=== PATIENT | male | born 1955 | race Caucasian/White ===

== ENCOUNTER 2024-10-11 14:37 | Outpatient (REF) | payer OTHER, SELFPAY ==
--- OUTSIDE RECORDS SUMMARY | 2024-10-11 16:50 | XMS_ITS | Encounter Summary ---
Author Name [facility] [place] [facility] [place] Address [address] [place] [id number] Care Team Providers Care Car Supplier Name Role Phone SHERLYN BRADLEY Primary Care Provider [facility] Insurance Providers: All historical and current Section Date Range: From patient's date of to the date document was created. This section includes the names of all active insurance providers for the patient. Insurance Provider Type of Coverage Plan Name Start of Policy Coverage End of Policy Coverage Group Number Member ID Insurance Provider's Telephone Number Policy Vasquez's Name Patient's Relationship to Policy Vasquez MEDICARE (WNR) MEDICARE (M) PART B Apr 05, 2020 PART B [id number] [place] PATIENT MEDICARE (WNR) MEDICARE (M) PART A Mar 06, 2019 PART A [id number] [place] PATIENT Selected Encounter This section includes the information on record at [place] for the Encounter. Date/Time Encounter Type Encounter Description Reason Pro vider Source Oct 25, 2023 07:16 AM Outpatient Encounter ENDOCRINOLOGY IHE Encounter Template Text not used by [place] Plan of Treatment: Future Appointments (+ 6 months) and Future Tests (+/- 45 days) The Plan of Treatment section includes future care activities for the patient from all [facility] treatment[facility]. This section includes future appointments and future orders which are active, pending or scheduled. Future Appointments This section includes appointments that were scheduled to occur 6 months from the date of the Encounter, up to a maximum of 20 appointments. The data comes from all [place] treatment facilities. Appointment Date/Time Appointment Type Appointme nt Facility Name Nov 18, 2023 07:00 AM [place] [facility] Dec 30, 2023 03:20 PM [place] [facility] Jan 21, 2024 08:30 AM [place] [facility] Mar 12, 2024 08:30 AM [place] [facility] [facility] Apr 01, 2024 09:00 AM [facility] Lab Results: +/- 30 days of the encounter This section includes the Chemistry and Hematology Lab Results on record with [place] for the patient. Radiology Reports and Pathology Reports are provided separately, in subsequent sections. Lab Results This section contains the Chemistry/Hematology Results that were resulted 30 days before or 30 daysafter the date of the Encounter. Date/Time Source Result Type Result - Unit Interpretation Reference Range Comment Oct 23, 2023 09:48 AM [facility] PROLACTIN Specimen Type: SERUM Comment: PROLACTIN female range:PREMENOPAU LORENZO 3-27, POSTMENOPAUSAL 2-20 Male range changed from 2-14 to 3-20 on 12/28/12. Ordering Provider: SHERLYN BRADLEY Report Released Date/Time: Sep 11, 2023 08:04 AM Reporting Lab: [facility] [address] [facility] [address] Performing Lab: [facility] [address] [facility] [address] PROLACTIN 8.67 ng/mL 3-20 Oct 23, 2023 09:48 AM [facility] ALPHA SUBUNIT (Q) Specimen Type: SERUM Comment: Reference Range for Alpha Subunit: Males: 0.1-0.5 ng/mL Hypothyroidism: 0.2-3.2 ng/mL This test measures the free alpha subunit that is common to LH, FSH, TSH and hCG. These hormones are comprised of identical alpha subunits and unique beta subunits that confer biological specificity. This test was developed and its analytical performance characteristics have been determined by [facility]. It has not been cleared or approved by FDA. This assay has been validated pursuant to the CLIA regulations and is used for clinical purposes. Test performed by [facility] [address] [address] Television Installer: Estela Barlow MD,PHD,PATSY Test Reported by [facility] [employer], [address] [place] [address] Seamus Joseph M.D., Ph.D., Director of Laboratories , CLIA [id number] TEST PERFORMED AT: , Ordering Provider: RUTH RILEY Report Released Date/Time: Oct 23, 2023 09:23 AM Reporting Lab: [facility] [place] [facility] [address] [facility] [address] Performing Lab: [facility] [address] [address] ALPHA SUBUNIT (Q) 0.2 ng/mL Oct 23, 2023 09:48 AM [facility] IGF1 PANEL Specimen Type: SERUM Comment: This test was developed and its analytical performance characteristics have been determined by [facility]. It has not been cleared or approved by FDA. This assay has been validated pursuant to the CLIA regulations and is used for clinical purposes. TEST PERFORMED AT: , Test performed [place] [address] Television Installer: Estela Barlow MD,PHD,PATSY Test Reported by [facility] [employer], [address] [place], [place] Seamus Joseph M.D., Ph.D., Director of Laboratories , CLIA [id number] Ordering Provider: RUTH RILEY Report Released Date/Time: Oct 23, 2023 09:23 AM Reporting Lab: [facility] [address] [facility] [address] Performing Lab: [facility] [address] [address] IGF1 168 ng/mL 34-245 IGF Z SCORE, MALE 0.9 -2.0-+2.0 Oct 23, 2023 09:48 AM [facility] PTH INTACT Specimen Type: SERUM No comment entered. Ordering Provider: RUTH RILEY Report Released Date/Time: Oct 23, 2023 09:28 AM Reporting Lab: [facility] [place] [facility] [address] [facility] [address] Performing Lab: [facility] [place] [facility] [address] [facility] [address] PTH INTACT 48.9 pg/mL 10-65 Oct 23, 2023 09:48 AM [facility] VITAMIN D (25-OH) Specimen Type: SERUM No comment entered. Ordering Provider: RUTH RILEY Report Released Date/Time: Oct 23, 2023 09:28 AM Reporting Lab: [facility] [place] [facility] [address] [facility] [address] Performing Lab: [facility] [address] [address] VITAMIN D (25-OH) 46 ng/mL 20-50 Oct 23, 2023 09:48 AM [facility] CALCIUM Specimen Type: SERUM No comment entered. Ordering Provider: RUTH RILEY Report Released Date/Time: Oct 23, 2023 09:28 AM Reporting Lab: [facility] [place] [address] [address] Performing Lab: [facility] [address] [address] CALCIUM 9.5 mg/dL 8.5-10.2 Oct 23, 2023 09:48 AM [facility] BASIC METABOLIC PANEL (fasting) Specimen Type: SERUM No comment entered. Ordering Provider: RUTH RILEY Report Released Date/Time: Oct 23, 2023 09:28 AM Reporting Lab: [facility] [place] [address] [address] Performing Lab: [facility] [address] [facility] [address] UREA NITROGEN 21 mg/dL 7-25 GLUCOSE 106 mg/dL H 65-100 SODIUM 138 mmol/L 135-145 POTASSIUM 4.8 mmol/L 3.5-5.0 CHLORIDE 100 mmol/L 100-110 CO2 27 meq/L 20-30 CREATININE, Serum 0.87 mg/dL 0.50-1.40 eGFR(CKD-EPI 2020) >90 mL/min >60 Oct 02, 2023 10:32 AM [facility] THYROID T4 FREE(FT4) Specimen Type: SERUM No comment entered. Ordering Provider: SHERLYN BRADLEY Report Released Date/Time: Sep 01, 2023 01:19 PM Reporting Lab: [facility] [address] [facility] [address] Performing Lab: [facility] [address] [facility] [address] THYROID T4 FREE(FT4) 1.22 ng/dL 0.6-1.6 Oct 02, 2023 10:32 AM [facility] TSH Specimen Type: SERUM No comment entered. Ordering Provider: SHERLYN BRADLEY Report Released Date/Time: Sep 01, 2023 01:19 PM Reporting Lab: [facility] [address] [facility] [address] Performing Lab: [address] [address] TSH 0.77 u[IU]/mL 0.35-5.00 Oct 02, 2023 10:32 AM [facility] BASIC METABOLIC PANEL (fasting) Specimen Type: SERUM No comment entered. Ordering Provider: SHERLYN BRADLEY Report Released Date/Time: Sep 01, 2023 01:19 PM Reporting Lab: [facility] [address] [facility] [address] Performing Lab: [address] [address] UREA NITROGEN 13 mg/dL 7-25 GLUCOSE 97 mg/dL 65-100 SODIUM 135 mmol/L 135-145 POTASSIUM 4.4 mmol/L 3.5-5.0 CHLORIDE 99 mmol/L L 100-110 CO2 25 meq/L 20-30 CREATININE, Serum 0.80 mg/dL 0.50-1.40 eGFR(CKD-EPI 2020) >90 mL/min >60 Oct 02, 2023 10:32 AM [facility] CBC Specimen Type: BLOOD No comment entered. Ordering Provider: SHERLYN BRADLEY Report Released Date/Time: Sep 01, 2023 01:19 PM Reporting Lab: [facility] [address] [facility] [address] Performing Lab: [address] [address] WBC 8.05 10*3/uL 4.50-11.00 RBC 4.73 10*6/uL 4.23-5.66 HGB 15.6 g/dL 12.8-17 HCT 45.2 39.2-50.4 MCV 95.6 fL 82-99 MCHC 34.5 g/dL 30.8-35.1 PLT 190 10*3/uL 140-360 RDW-CV 12.3 12.0-16.0 MCH 33.0 pg H 26.2-32.6 Oct 02, 2023 10:32 AM [facility] LIPID PANEL FASTING Specimen Type: SERUM No comment entered. Ordering Provider: SHERLYN BRADLEY Report Released Date/Time: Sep 01, 2023 01:19 PM Reporting Lab: [facility] [address] [facility] [address] Performing Lab: [address] [address] CHOLESTEROL 179 mg/dL TRIGLYCERIDE 69 mg/dL 0-150 LDL calculated 95 mg/dL 0-129 CHOL/HDL 2.6 HDL CHOLESTEROL 70 mg/dL H 40-60 Oct 02, 2023 10:32 AM [facility] HEMOGLOBIN A1C PANEL Specimen Type: BLOOD Comment: Values obtained from A1C measurements can vary. For atypical A1C assays, a reported value of 7.0 could actually be between 6.72 and 7.28 if measured by a reference method. A reported value of 9.0 could actually be between 8.73 and 9.27. Ref: [email or web address] org/CAPdata.asp Ordering Provider: SHERLYN BRADLEY Report Released Date/Time: Sep 01, 2023 01:19 PM Reporting Lab: [facility] [address] [facility] [address] Performing Lab: [address] [address] HEMOGLOBIN A1C 5.1 4.0-5.6 Oct 02, 2023 10:32 AM [facility] LIVER FUNCTION Specimen Type: SERUM No comment entered. Ordering Provider: SHERLYN BRADLEY Report Released Date/Time: Sep 01, 2023 01:19 PM Reporting Lab: [facility] [address] [facility] [address] Performing Lab: [address] [address] PROTEIN,TOTAL 6.7 g/dL 6.0-8.3 ALBUMIN 4.1 g/dL 3.5-5.0 ALKALINE PHOSPHATASE 92 U/L 40-150 AST 36 U/L H 5-34 ALT 35 U/L BILIRUBIN, TOTAL 1.0 mg/dL 0.2-1.2 Oct 02, 2023 10:32 AM [facility] VITAMIN D (25-OH) Specimen Type: SERUM No comment entered. Ordering Provider: SHERLYN BRADLEY Report Released Date/Time: Sep 01, 2023 01:19 PM Reporting Lab: [facility] [address] [facility] [address] Performing Lab: [address] [address] VITAMIN D (25-OH) 41 ng/mL 20-50 Oct 02, 2023 10:31 AM [facility] PROLACTIN Specimen Type: SERUM Comment: PROLACTIN female range:PREMENOPAU LORENZO 3-27, POSTMENOPAUSAL 2-20 Male range changed from 2-14 to 3-20 on 12/28/12. Ordering Provider: RUTH RILEY Report Released Date/Time: Apr 21, 2023 09:25 AM Reporting Lab: [facility] [address] [facility] [address] Performing Lab: [place] [facility] [address] [facility] [address] PROLACTIN 9.11 ng/mL 12-23Oct 02, 2023 10:31 AM [facility] CALCIUM Specimen Type: SERUM No comment entered. Ordering Provider: RUTH RILEY Report Released Date/Time: Apr 21, 2023 09:25 AM Reporting Lab: [facility] [address] [facility] [address] Performing Lab: [facility] [address] [facility] [address] CALCIUM 9.5 mg/dL 8.5-10.2 Social History: Smoking Status (Most current) and Tobacco Use (All prior to encounter date) This section includes the most current, and the historical, smoking and tobacco- related health factors from the [place] facility where the Encounter took place. Current Smoking Status This section includes the most current smoking, or tobacco-related health factor, from the [place] facility where the Encounter took place. Date/Time Current Smoking Status Comment Dinesh ity Sep 04, 2023 01:14 PM [place] USE 30 YEARS OR MORE [facility] Tobacco Use History This section includes a history of the smoking, or tobacco-related health factors, that were collected on or before the date of the Encounter. The data comes from the [place] facility where the Encounter took place. 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 [place] [facility] [facility] Sep 04, 2023 01:14 PM [place]BACCO USE MED NO [place] [facility] Sep 04, 2023 01:14 PM [place]-TOBACCO USE [place] 30 MIN OF WAKEUP [place] [facility] Sep 04, 2023 01:14 PM VA-TOBACCO USER EVERY DAY [place] [facility] [facility] Oct 01, 2022 09:45 AM VA-TOBACCO DOESNT USE WI 30 MIN WAKEUP [place] [facility] [place] [facility] Oct 01, 2022 09:45 AM VA-TOBACCO USE 30 YEARS OR MORE [place] [facility] [place] [facility] Oct 01, 2022 09:45 AM VA-TOBACCO USE ADVICE [place] [facility] [place] [facility] Oct 01, 2022 09:45 AM 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 [place] [facility] [facility] Oct 01, 2022 09:45 AM VA-TOBACCO USE MED NO [place] [facility] [place] [facility] Oct 01, 2022 09:45 AM VA-TOBACCO USER EVERY DAY [place] [facility] [place] [facility] Sep 07, 2021 10:30 AM VA-TOBACCO USE 30 YEARS OR MORE [place] [facility] [place] [facility] Sep 07, 2021 10:30 AM VA-TOBACCO USE ADVICE [place] [facility] [place] [facility] Sep 07, 2021 10:30 AM 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 [place] [facility] [facility] Sep 07, 2021 10:30 AM VA-TOBACCO USE MED NO [place] [facility] [place] [facility] Sep 07, 2021 10:30 AM [place]-TOBACCO USE [place] 30 MIN OF WAKEUP [place] [facility] Sep 07, 2021 10:30 AM VA-TOBACCO USER EVERY DAY [place] [facility] [place] [facility] Jun 08, 2020 09:00 AM VA-TOBACCO USE 30 YEARS OR MORE [place] [facility] [place] [facility] Jun 08, 2020 09:00 AM VA-TOBACCO USE ADVICE [place] [facility] [place] [facility] Jun 08, 2020 09:00 AM 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 [place] [facility] [place] [facility] Jun 08, 2020 09:00 AM VA-TOBACCO USE MED NO [place] [facility] [facility] Jun 08, 2020 09:00 AM VA-TOBACCO USE [place] 30 MIN OF WAKEUP [place] [facility] [facility] Jun 08, 2020 09:00 AM VA-TOBACCO USER EVERY DAY [place] [facility] Feb 01, 2019 02:27 PM VA-TOBACCO USE 30 YEARS OR MORE [place] [facility] Feb 01, 2019 02:27 PM VA-TOBACCO USE ADVICE [place] [facility] [facility] Feb 01, 2019 02:27 PM 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 [place] [facility] [facility] Feb 01, 2019 02:27 PM VA-TOBACCO USE MED NO [place] [facility] Feb 01, 2019 02:27 PM [place]-TOBACCO USE [place] 30 MIN [place]KEUP [place] [facility] [facility] [facility] Feb 01, 2019 02:27 PM VA-TOBACCO USER EVERY DAY [place] [facility] [facility] [facility] Apr 02, 2018 02:47 PM CURRENT SMOKER [place] [facility] [facility] Apr 02, 2018 02:47 PM V1-PT DECLINES REF TO TOBACCO CESS PRGM [place] [facility] [facility] Apr 02, 2018 02:47 PM V1-PT DECLINES TOB ACCO CESSATION MEDS [place] [facility] [facility] [facility] Apr 02, 2018 02:47 PM V1-PT THINKING ABO UT QUIT TOBACCO USE [facility] Radiology Reports: +/- 30 days of the encounter Radiology Reports For cases when an order for radiology services may have been completed prior to the date of the Encounter, the report list includes the Radiology Reports that were completed up to 30 days before dateof the Encounter. For cases when an order for radiology services may have been completed after the date of the Encounter, the report list also includes the Radiology Reports that were completed up to30 days after date of the Encounter. The data comes from all [place] treatment facilities. Date/Time Radiology Report Provider Source Nov 18, 2023 02:00 PM OUTSIDE MRI BRAIN W/WO CONTRAST: KINGSTON RENDON [id number] -[id number] M Exm Date: NOV 18, 2023@14:00 Req Phys: RUTH RILEY Loc: NHM/ENDOCRINE (Req'g Loc) Img Loc: OUTSIDE GENERAL RADIOLOGY Service: Unknown (Case [id number] COMPLETE) OUTSIDE MRI BRAIN W/WO CONTRAST (RAD Detailed) CPT:76874 Reason for Study: benign pituitary neoplasm Clinical History: Report Status: Electronically Filed Date Reported: DEC 01, 2023 Report: Please see report in [facility]. Impression: Please see report in [facility]. Primary Diagnostic Code: VERIFIED BY: / *ELECTRONICALLY FILED* [place] [facility] [facility] Encounter Notes: All associated encounter notes This section contains the clinical notes associated to the Encounter. Date/Time Encounter Note(s) Provider Source Oct 25, 2023 07:16 AM LETTERS: LOCAL TITLE: PATIENT LETTER (B) STANDARD TITLE: LETTERS DATE OF NOTE: OCT 25, 2023@07:16 ENTRY DATE: OCT 25, 2023@07:16:27 AUTHOR: RUTH RILEY COSIGNER: URGENCY: STATUS: COMPLETED PATIENT LETTER (B) Has ADDENDA Oct KINGSTON RENDON [address] [place] [address] Dear [place], Your recent test results are as follows: 10/23/2023 09:48 SERUM !! PROLACTIN 8.67 ng/mL 3 - 20 10/23/2023 09:48 SERUM CALCIUM 9.5 mg/dL 8.5 - 10.2 CREATININE, Serum 0.87 mg/dL 0.50 - 1.40 VITAMIN D (25-OH) 46 ng/mL 20 - 50 eGFR(CKD-EPI 2020 >90 mL/min Ref: >=60 SODIUM 138 mmol/L 135 - 145 POTASSIUM 4.8 mmol/L 3.5 - 5.0 CHLORIDE 100 mmol/L 100 - 110 CO2 27 mEq/L 20 - 30 UREA NITROGEN 21 mg/dL 7 - 25 GLUCOSE 106 H mg/dL 65 - 100 10/23/2023 09:48 SERUM PTH INTACT 48.9 pg/mL 10 - 65 Your prolactin may go up with growth of your pituitary nodule. Your result is normal. Your calcium and vitamin D look good on your current doses. Please continue these. Your kidney function blood tests and chemistries are normal. Please continue your calcium and vitamin D. Your parathyroid hormone (which regulates calcium) is normal. Please call if you have any questions or concerns at [phone] option 2 option 4. Sincerely, Ruth Riley MD 11/04/2023 ADDENDUM STATUS: COMPLETED Oct KINGSTON RENDON Jarrod [address] [place] [address] Dear [place], Your recent test results are as follows: 10/23/2023 09:48 IGF1 168 ng/mL 34 - 245 IGF Z SCORE, MALE 0.9 SD -2.0 - +2.0 This test to look for excess growth hormone is normal. Please call if you have any questions or concerns at [phone] option 2 option 4. Sincerely, Ruth Riley MD /lolly/ RUTH RILEY MD STAFF PHYSICIAN Signed: 11/04/2023 05:59 RUTH RILEY [facility]
--- OUTSIDE RECORDS SUMMARY | 2024-10-11 16:50 | XMS_ITS ---
Author Name [facility] [place] Organization [facility] [place] Address [address] [place] [id number] Care Team Providers Care Dry Heat Room Attendant Name Role Phone SHERLYN BRADLEY Primary Care Provider [facility] Insurance Providers: All historical and current [...] PART B Apr 05, 2020 PART B [id number] [facility] [place] PATIENT MEDICARE (WNR) MEDICARE (M) PART A Mar 06, 2019 PART A [id number] COC[facility] FARLEY PATIENT Selected Encounter This section includes the information on record at CT for the Encounter. Date/Time Encounter Type Encounter Description Reason Pro vider Source Nov 04, 2023 12:57 PM Outpatient Encounter ENDOCRINOLOGY IHE Encounter Template Text not used by CT Plan of Treatment: Future Appointments (+ 6 [...] 20 appointments. The data comes from all CT treatment facilities. Appointment Date/Time Appointment Type Appointme nt Facility Name Nov 18, 2023 07:00 AM AMBULATORY - MEDICINE [facility] Dec 30, 2023 03:20 PM AMBULATORY [facility] Jan 21, 2024 08:30 AM AMBULATORY - MEDIC[place] [facility] [place] [facility] Mar 12, 2024 08:30 AM AMBULATORY - MEDICINE [facility] C [facility] Apr 01, 2024 09:00 AM [facility] Lab Results: +/- 30 days of the encounter This section includes the Chemistry and Hematology Lab Results on record with CT for the patient. Radiology Reports and Pathology Reports are provided separately, in subsequent sections. Lab Results This section contains the Chemistry/Hematology Results that were resulted 30 days before or 30 daysafter the date of the Encounter. Date/Time Source Result Type Result - Unit Interpretation Reference Range Comment Oct 23, 2023 09:48 AM [facility] PROLACTIN Specimen Type: SERUM Comment: PROLACTIN female range:PREMENOPAUS AL 3-27, POSTMENOPAUSAL 2-20 Male range changed from 2-14 to 3-20 on 12/28/12. Ordering Provider: SHERLYN BRADLEY Report Released Date/Time: Sep 11, 2023 08:04 AM Reporting Lab: [facility] [address] [facility] [address] Performing Lab: [facility] [address] [facility] [address] PROLACTIN 8.67 ng/mL 3-20 Oct 23, 2023 09:48 AM [facility] ALPHA SUBUNIT (Q) Specimen Type: SERUM [...] analytical performance characteristics have been determined by [facility]. It has not been cleared or approved by FDA. This assay has been validated pursuant to the CLIA regulations and is used for clinical purposes. Test performed by [facility] [address] [address] Mosaic Technician: Estela Barlow MD,PHD,PATSY Test Reported by [employer] [facility] [place], [address] [place] [address] Seamus Joseph M.D., Ph.D., Director of Laboratories , CLIA [id number] TEST PERFORMED AT: , Ordering Provider: JEEVAN RILEY Report Released Date/Time: Oct 23, 2023 09:23 AM Reporting Lab: [facility] [address] [facility] [address] Performing Lab: [facility] [address] [address] ALPHA SUBUNIT (Q) 0.2 ng/mL Oct 23, 2023 09:48 AM [facility] IGF1 PANEL Specimen Type: SERUM Comment: This test was developed and its analytical performance characteristics have been determined by [facility]. It has not been cleared or approved by FDA. This assay has been validated pursuant to the CLIA regulations and is used for clinical purposes. TEST PERFORMED AT: , Test performed [place] [address] Mosaic Technician: Estela Barlow MD,PHD,PATSY Test Reported by [employer] [facility] [place], [address] [place], [place] Seamus Joseph M.D., Ph.D., Director of Laboratories , CLIA [id number] Ordering Provider: JEEVAN RILEY Report Released Date/Time: Oct 23, 2023 09:23 AM Reporting Lab: [facility] [address] [facility] [address] Performing Lab: [facility] [address] [address] IGF1 168 ng/mL 34-245 IGF Z SCORE, MALE 0.9 -2.0-+2.0 Oct 23, 2023 09:48 AM [facility] CALCIUM Specimen Type: SERUM No comment entered. Ordering Provider: JEEVAN RILEY Report Released Date/Time: Oct 23, 2023 09:28 AM Reporting Lab: [facility] [place] [facility] [address] [facility] [address] Performing Lab: [facility] [address] [address] CALCIUM 9.5 mg/dL 8.5-10.2 Oct 23, 2023 09:48 AM [facility] PTH INTACT Specimen Type: SERUM No comment entered. Ordering Provider: JEEVAN RILEY Report Released Date/Time: Oct 23, 2023 09:28 AM Reporting Lab: [facility] [place] [facility] [address] [facility] [address] Performing Lab: [facility] [address] [facility] [address] PTH INTACT 48.9 pg/mL 10-65 Oct 23, 2023 09:48 AM [facility] VITAMIN D (25-OH) Specimen Type: SERUM No comment entered. Ordering Provider: JEEVAN RILEY Report Released Date/Time: Oct 23, 2023 09:28 AM Reporting Lab: [facility] [place] [facility] [address] [facility] [address] Performing Lab: [facility] [address] [address] VITAMIN D (25-OH) 46 ng/mL 20-50 Oct 23, 2023 09:48 AM [facility] BASIC METABOLIC PANEL (fasting) Specimen Type: SERUM No comment entered. Ordering Provider: JEEVAN RILEY Report Released Date/Time: Oct 23, 2023 09:28 AM Reporting Lab: [facility] [place] [address] [address] Performing Lab: [place] [facility] [place] [facility] [address] [facility] [address] UREA NITROGEN 21 mg/dL 7-25 GLUCOSE 106 mg/dL H 65-100 SODIUM 138 mmol/L 135-145 POTASSIUM 4.8 mmol/L 3.5-5.0 CHLORIDE 100 mmol/L 100-110 CO2 27 meq/L 20-30 CREATININE, Serum 0.87 mg/dL 0.50-1.40 eGFR(CKD-EP I 2020) >90 mL/min >60 Social History: Smoking Status (Most current) and Tobacco Use (All prior to encounter date) This section includes the most current, and the historical, smoking and tobacco- related health factors from the CT facility where the Encounter took place. Current Smoking Status This section includes the most current smoking, or tobacco-related health factor, from the CT facility where the Encounter took place. Date/Time Current Smoking Status Comment Facil ity Sep 04, 2023 01:14 PM VA-TOBACCO USER EVERY DAY [facility] Tobacco Use History This section includes a history of the smoking, or tobacco-related health factors, that were collected on or before the date of the Encounter. The data comes from the CT facility where the Encounter took place. Date/Time Smoking Status/Tobacco Use Comment F acility Sep 04, 2023 01:14 PM VA-TOBACCO USE ADVICE CT [facility] [place] [facility] Sep 04, 2023 01:14 PM VA-TOBACCO USE MINE DEVELOPMENT ENGINEER NO CT [facility] [place] [facility] Sep 04, 2023 01:14 PM VA-TOBACCO USE MED NO [facility] [place] [facility] Sep 04, 2023 01:14 PM VA-TOBACCO USE [place] [address] [facility] [place] [facility] Sep 04, 2023 01:14 PM VA-TOBACCO USER EVERY DAY CT [facility] [place] [facility] Oct 01, 2022 09:45 AM VA-TOBACCO DOESNT USE [place] [address] [facility] [place] [facility] Oct 01, 2022 09:45 AM VA-TOBACCO USE [address] [facility] [place] [facility] Oct 01, 2022 09:45 AM VA-TOBACCO USE ADVICE CT [facility] [place] [facility] Oct 01, 2022 09:45 AM VA-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 USE MINE DEVELOPMENT 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 NO [facility] [place] [facility] Oct 01, 2022 09:45 AM VA-TOBACCO USE MED NO [facility] [place] [facility] Oct 01, 2022 09:45 AM VA-TOBACCO USER EVERY DAY [facility] [place] [facility] Sep 07, 2021 10:30 AM VA-TOBACCO USE 30 YEARS OR MORE [facility] [place] [facility] Sep 07, 2021 10:30 AM VA-TOBACCO USE ADVICE [facility] [place] [facility] Sep 07, 2021 10:30 AM VA-TOBACCO USE MINE DEVELOPMENT ENGINEER NO [facility] [place] [facility] Sep 07, 2021 10:30 AM VA-TOBACCO USE MED NO [facility] [place] [facility] Sep 07, 2021 10:30 AM VA-TOBACCO USE [place] 30 MIN OF WAKEUP [facility] [place] [facility] Sep 07, 2021 10:30 AM VA-TOBACCO USER EVERY DAY [facility] [place] [facility] Jun 08, 2020 09:00 AM VA-TOBACCO USE 30 YEARS OR MORE [facility] [place] [facility] Jun 08, 2020 09:00 AM VA-TOBACCO USE ADVICE [facility] [place] [facility] Jun 08, 2020 09:00 AM VA-TOBACCO USE MINE DEVELOPMENT ENGINEER NO [facility] [place] [facility] Jun 08, 2020 09:00 AM VA-TOBACCO USE MED NO [facility] [place] [facility] Jun 08, 2020 09:00 AM VA-TOBACCO USE [place] 30 MIN OF WAKEUP [facility] [place] [facility] Jun 08, 2020 09:00 AM VA-TOBACCO USER EVERY DAY [facility] [place] [facility] Feb 01, 2019 02:27 PM VA-TOBACCO USE 30 YEARS OR MORE [facility] [place] [facility] Feb 01, 2019 02:27 PM VA-TOBACCO USE ADVICE [facility] [place] [facility] Feb 01, 2019 02:27 PM VA-TOBACCO USE MINE DEVELOPMENT ENGINEER NO [facility] [place] [facility] Feb 01, 2019 02:27 PM VA-TOBACCO USE MED NO [facility] Feb 01, 2019 02:27 PM VA-TOBACCO [place] [address] [facility] Feb 01, 2019 02:27 PM VA-TOBACCO USER EVERY DAY CT [facility] [place] [facility] Apr 02, 2018 02:47 PM CURRENT SMOKER [facility] Apr 02, 2018 02:47 PM V1-PT DECLINES REF TO TOBACCO CESS PRGM CT [facility] Apr 02, 2018 02:47 PM V1-PT DECLINES TOB ACCO CESSATION MEDS CT [facility] [place] [facility] Apr 02, 2018 02:47 PM V1-PT THINKING ABO UT QUIT TOBACCO USE [facility] Radiology Reports: +/- 30 days of the [...] the Encounter. The data comes from all CT treatment facilities. Date/Time Radiology Report Provider Source Nov 18, 2023 02:00 PM OUTSIDE MRI BRAIN W/WO CONTRAST: KINGSTON RENDON [id number] -[id number] Exm Date: NOV 18, 2023@14:00 Req Phys: JEEVAN RILEY Loc: NH[facility]/ENDOCRINE (Req'g Loc) Img Loc: OUTSIDE GENERAL RADIOLOGY Service: Unknown (Case [id number] COMPLETE) OUTSIDE MRI BRAIN W/WO CONTRAST (RAD Detailed) CPT:32490 Reason for Study: benign pituitary neoplasm Clinical History: Report Status: Electronically Filed Date Reported: DEC 01, 2023 Report: Please see report in [facility]. Impression: Please see report in [facility]. Primary Diagnostic Code: VERIFIED BY: / *ELECTRONICALLY FILED* [facility] Encounter Notes: All associated encounter notes This section contains the clinical notes associated to the Encounter. Date/Time Encounter Note(s) Provider Source Nov 07, 2023 12:57 PM ADDENDUM: LOCAL TITLE: Addendum STANDARD TITLE: ADDENDUM DATE OF NOTE: NOV 07, 2023@12:57:17 ENTRY DATE: NOV 07, 2023@12:57:18 AUTHOR: JEEVAN RILEY EXP COSIGNER: URGENCY: STATUS: COMPLETED Advised of normal alpha subunit. Dr. Aly, Pt is now seeking oral surgery consult. This was placed 05/2023. Pt did not make appt at that time. Now requesting new referral for this care. Thank you. /galina RILEY MD STAFF PHYSICIAN Signed: 11/07/2023 13:01 Receipt Acknowledged By: 11/13/2023 12:12 /lolly/ JANEL ALY DMD Staff Dentist ====== --- Original Document --- 11/04/23 TELEPHONE NOTE/SPECIALTY CLINIC: called asking to speak with Dr. Riley regarding his dental community care consult order, which was discontinued. He is unable to schedule an appointment until a new order has been entered. Please contact [facility] to discuss. /lolly/ ROZ PHILIPPE LEAD DIE DESIGNER Signed: 11/04/2023 12:59 Receipt Acknowledged By: 11/07/2023 13:01 /galina RILEY MD STAFF PHYSICIAN JEEVAN RILEY [facility] Nov 04, 2023 12:57 PM TELEPHONE ENCOUNTE R NOTE: LOCAL TITLE: TELEPHONE NOTE/SPECIALTY CLINIC STANDARD TITLE: TELEPHONE ENCOUNTER NOTE DATE OF NOTE: NOV 04, 2023@12:57 ENTRY DATE: NOV 04, 2023@12:57:24 AUTHOR: ROZ PHILIPPE EXP COSIGNER: URGENCY: STATUS: COMPLETED TELEPHONE NOTE/SPECIALTY CLINIC Has ADDENDA [facility] called asking to speak with Dr. Riley regarding his dental community care consult order, which was discontinued. He is unable to schedule an appointment until a new order has been entered. Please contact to discuss. /galina PHILIPPE LEAD DIE DESIGNER Signed: 11/04/2023 12:59 Receipt Acknowledged By: 11/07/2023 13:01 /galina RILEY MD STAFF PHYSICIAN 11/07/2023 ADDENDUM STATUS: COMPLETED Advised of normal alpha subunit. Dr. Aly, Pt is now seeking oral surgery consult. This was placed 05/2023. Pt did not make appt at that time. Now requesting new referral for this care. Thank you. /galina RILEY MD STAFF PHYSICIAN Signed: 11/07/2023 13:01 Receipt Acknowledged By: * AWAITING SIGNATURE * JANEL ALY BRENDA J [facility]
--- OUTSIDE RECORDS SUMMARY | 2024-10-11 16:50 | XMS_ITS | Encounter Summary ---
Author Name [facility] [place] [facility] [place] Organization [facility] [place] [facility] [place] Address [address] [place] [id number] Care Team Providers Care Html Developer Name Role Phone SHERLYN BRADLEY Primary Care Provider [facility] Insurance Providers: All historical and current Section [...] PART B Apr 05, 2020 PART B [id number] MIGUELITOCOCO FRANKLINNDER PATIENT MEDICARE (WNR) MEDICARE (M) PART A Mar 06, 2019 PART A [id number] COCO FARLEY PATIENT Selected Encounter This section includes the information on record at [place] for the Encounter. Date/Time Encounter Type Encounter Description Reason Provider Source Nov 19, 2023 12:31 PM Outpatient Encounter TELEPHONE/MEDICIN E ICD-10-CM D35.2 Benign neoplasm of pituitary gland JEEVAN RILEY Nathaniel Encounter Template Text not used by [place] Assessments - Encounter Diagnoses This section includes the primary and secondary diagnoses documented for the Encounter. Date/Time Primary/Secondary Diagnosis Diagnosis Name Provider Source Nov 19, 2023 12:31 PM PRIMARY Benign neoplasm of pituitary gland JEEVAN RILEY [facility] Plan of Treatment: Future Appointments (+ 6 months) and Future Tests (+/- 45 days) The Plan of Treatment section includes future care activities for the [facility] This section includes future appointments and future orders which are active, pending or scheduled. Future Appointments This section includes appointments that were scheduled to occur 6 months from the date of the Encounter, up to a maximum of 20 appointments. The data comes from all [place] treatment facilities. Appointment Date/Time Appointment Type Appointme nt Facility Name Dec 30, 2023 03:20 PM AMBULATORY [facility]INE [facility] Jan 21, 2024 08:30 AM AMBULAT[facility] Mar 12, 2024 08:30 AM AMBULATORY - MEDICINE [facility] Apr 01, 2024 09:00 AM AMBULATORY - NONE [facility] Lab Results: +/- 30 days of the encounter This section includes the Chemistry and Hematology Lab Results on record with [place] for the patient. Radiology Reports and Pathology Reports are provided separately, in subsequent sections. Lab Results This section contains the Chemistry/Hematology Results that were resulted 30 days before or 30 daysafter the date of the Encounter. Date/Time Source Result Type Result - Unit Interpretation Reference Range Comment Oct 23, 2023 09:48 AM [facility] PROLACTIN Specimen Type: SERUM Comment: PROLACTIN female range:PREMENOPAUS AL 3-27, POSTMENOPAUSAL 2-20 Male range changed from 2-14 to 3-20 on 12/28/12. Ordering Provider: SHERLYN BRADLEY Report Released Date/Time: Sep 11, 2023 08:04 AM Reporting Lab: [facility] [address] [address] Performing Lab: [facility] [address] [facility] [address] PROLACTIN 8.67 ng/mL 3-20 Oct 23, 2023 09:48 AM [facility] ALPHA SUBUNIT (Q) Specimen Type: SERUM Comment: Reference Range for Alpha Subunit: Males: 0.1-0.5 ng/mL Hypothyroidism: 0.2-3.2 ng/mL This test measures the free alpha subunit that is common to LH, FSH, TSH and hCG. These hormones are comprised of identical alpha subunits and unique beta subunits that confer biological specificity. This test was developed and its analytical performance characteristics have been determined by [employer]. It has not been cleared or approved by FDA. This assay has been validated pursuant to the CLIA regulations and is used for clinical purposes. Test performed by [employer] [place] [id number] Lapidarist: Estela Barlow MD,PHD,PATSY Test Reported by [facility], [address] [place], [place] Seamus Joseph M.D., Ph.D., Director of Laboratories , CLIA [id number] TEST PERFORMED AT: , Ordering Provider: JEEVAN RILEY Report Released Date/Time: Oct 23, 2023 09:23 AM Reporting Lab: [facility] [address] [facility] [address] Performing Lab: [facility] [address] [address] ALPHA SUBUNIT (Q) 0.2 ng/mL Oct 23, 2023 09:48 AM [facility] IGF1 PANEL Specimen Type: SERUM Comment: This test was developed and its analytical performance characteristics have been determined by [employer]. It has not been cleared or approved by FDA. This assay has been validated pursuant to the CLIA regulations and is used for clinical purposes. TEST PERFORMED AT: , Test performed by [employer] [address] [address] Lapidarist: Estela Barlow MD,PHD,PATSY Test Reported by [facility] [employer] [place], [address] [place], [place] Seamus Joseph M.D., Ph.D., Director of Laboratories , CLIA [id number] Ordering Provider: JEEVAN RILEY Report Released Date/Time: Oct 23, 2023 09:23 AM Reporting Lab: [facility] [place] [facility] [address] [facility] [address] Performing Lab: [facility] [place] [facility] [address] [address] IGF1 168 ng/mL 34-245 IGF Z SCORE, MALE 0.9 -2.0-+2.0 Oct 23, 2023 09:48 AM [facility] CALCIUM Specimen Type: SERUM No comment entered. Ordering Provider: JEEVAN RILEY Report Released Date/Time: Oct 23, 2023 09:28 AM Reporting Lab: [facility] [place] [facility] [address] [facility] [address] Performing [facility]: [facility] [address] [facility] [address] CALCIUM 9.5 mg/dL 8.5-10.2 Oct 23, 2023 09:48 AM [facility] PTH INTACT Specimen Type: SERUM No comment entered. Ordering Provider: JEEVAN RILEY Report Released Date/Time: Oct 23, 2023 09:28 AM Reporting Lab: [facility] [place] [facility] [address] [facility] [address] Performing Lab: [facility] [address] [facility] [address] PTH INTACT 48.9 pg/mL 10-65 Oct 23, 2023 09:48 AM [facility] VITAMIN D (25-OH) Specimen Type: SERUM No comment entered. Ordering Provider: JEEVAN RILEY Report Released Date/Time: Oct 23, 2023 09:28 AM Reporting Lab: [facility] [place] [facility] [address] [facility] [address] Performing Lab: [facility] [address] [facility] [address] VITAMIN D (25-OH) 46 ng/mL 20-50 Oct 23, 2023 09:48 AM [facility] BASIC METABOLIC PANEL (fasting) Specimen Type: SERUM No comment entered. Ordering Provider: JEEVAN RILEY Report Released Date/Time: Oct 23, 2023 09:28 AM Reporting Lab: [facility] [address] [facility] [address] Performing Lab: [place] CN[facility]L [facility] [address] [facility] [address] UREA NITROGEN 21 mg/dL 7-25 GLUCOSE 106 [...] and tobacco- related health factors from the [place] facility where the Encounter took place. Current Smoking Status This section includes the most current smoking, or tobacco-related health factor, from the [place] facility where the Encounter took place. Date/Time Current Smoking Status Comment Dinesh ity Sep 04, 2023 01:14 PM [place]-TOBACCO USER EVERY DAY [facility] Tobacco Use History This section includes a history of the smoking, or tobacco-related health factors, that were collected on or before the date of the Encounter. The data comes from the [place] facility where the Encounter took place. Date/Time Smoking Status/Tobacco Use Comment F acility Sep 04, 2023 01:14 PM VA-TOBACCO USE ADVICE [facility] Sep 04, 2023 01:14 PM VA-TOBACCO USE [facility]ER NO PA [facility] [facility] Sep 04, 2023 01:14 PM VA-TOBACCO USE MED NO PA [facility] Sep 04, 2023 01:14 PM VA-TOBACCO USE WI 30 MIN OF WAKEUP [facility] [facility] Sep 04, 2023 01:14 PM VA-TOBACCO USER EVERY DAY [facility] [place] [facility] Oct 01, 2022 09:45 AM VA-TOBACCO DOESNT USE WI 30 MIN WAKEUP [facility] [place] [facility] Oct 01, 2022 09:45 AM VA-TOBACCO USE 30 YEARS OR MORE [facility] [place] [facility] Oct 01, 2022 09:45 AM VA-TOBACCO USE ADVICE [facility] [place] [facility] Oct 01, 2022 09:45 AM VA-TOBACCO USE [facility] NO [facility] [place] [facility] Oct 01, 2022 09:45 AM VA-TOBACCO USE MED NO [facility] [facility] Oct 01, 2022 09:45 AM VA-TOBACCO USER EVERY DAY [facility] [place] [facility] Sep 07, 2021 10:30 AM VA-TOBACCO USE 30 YEARS OR MORE [facility] [place] [facility] Sep 07, 2021 10:30 AM VA-TOBACCO USE ADVICE [facility] [facility] Sep 07, 2021 10:30 AM VA-TOBACCO USE [facility] NO [facility] [place] [facility] Sep 07, 2021 10:30 AM VA-TOBACCO USE MED NO [facility] [facility] Sep 07, 2021 10:30 AM VA-TOBACCO USE [place] 30 MIN OF WAKEUP [facility] [place] [facility] Sep 07, 2021 10:30 AM VA-TOBACCO USER EVERY DAY [facility] [place] [facility] Jun 08, 2020 09:00 AM VA-TOBACCO USE 30 YEARS OR MORE [facility] [place] [facility] Jun 08, 2020 09:00 AM VA-TOBACCO USE ADVICE [facility] [facility] Jun 08, 2020 09:00 AM VA-TOBACCO USE [facility] NO [facility] [place] [facility] Jun 08, 2020 09:00 AM VA-TOBACCO USE MED NO [facility] [facility] Jun 08, 2020 09:00 AM VA-TOBACCO USE [place] 30 MIN OF WAKEUP [facility] [facility] Jun 08, 2020 09:00 AM VA-TOBACCO USER EVERY DAY [facility] [facility] Feb 01, 2019 02:27 PM VA-TOBACCO USE 30 YEARS OR MORE [facility] [facility] Feb 01, 2019 02:27 PM VA-TOBACCO USE ADVICE [facility] Feb 01, 2019 02:27 PM VA-TOBACCO USE [facility] NO PA CNTRL [facility] Feb 01, 2019 02:27 PM VA-TOBACCO USE MED NO PA CNTRL [facility] Feb 01, 2019 02:27 PM VA-TOBACCO USE [place] 30 MIN OF WAKEUP PA CNTRL [facility] Feb 01, 2019 02:27 PM VA-TOBACCO USER EVERY DAY PA CNTRL [facility] Apr 02, 2018 02:47 PM CURRENT SMOKER [facility] Apr 02, 2018 02:47 PM V1-PT DECLINES REF TO TOBACCO CESS PRGM PA CNTR WSTRN [facility] Apr 02, 2018 02:47 PM V1-PT DECLINES TOB ACCO CESSATION MEDS [facility] Apr 02, 2018 02:47 PM V1-PT THINKING ABO UT QUIT TOBACCO USE [facility] Radiology Reports: +/- 30 days of [...] the Encounter. The data comes from all [place] treatment facilities. Date/Time Radiology Report Provider Source Nov 18, 2023 02:00 PM OUTSIDE MRI BRAIN W/WO CONTRAST: KINGSTON RENDON [id number] M Exm Date: NOV 18, 2023@14:00 Req Phys: JEEVAN RILEY Loc: NHM/ENDOCRINE (Req'g Loc) Img Loc: OUTSIDE GENERAL RADIOLOGY Service: Unknown (Case [id number] COMPLETE) OUTSIDE MRI BRAIN W/WO CONTRAST (RAD Detailed) CPT:33488 Reason for Study: benign pituitary neoplasm Clinical History: Report Status: Electronically Filed Date Reported: DEC 01, 2023 Report: Please see report in [facility]. Impression: Please see report in [facility]. Primary Diagnostic Code: VERIFIED BY: / *ELECTRONICALLY FILED* [facility] Encounter Notes: All associated encounter notes This section contains the clinical notes associated to the Encounter. Date/Time Encounter Note(s) Provider Source Nov 19, 2023 12:31 PM PHYSICIAN NOTE: LOCAL TITLE: MD NOTE STANDARD TITLE: PHYSICIAN NOTE DATE OF NOTE: NOV 19, 2023@12:31 ENTRY DATE: NOV 19, 2023@12:31:10 AUTHOR: JEEVAN RILEY COSIGNER: URGENCY: STATUS: COMPLETED Pituitary benign neoplasm Advised of improved MRI pituitary, with shrinkage of the previously seen cystic pituitary lesion. We may want to repeat MRI in the future. 5 min telephone encounter. /lolly/ JEEVAN RILEY MD STAFF PHYSICIAN Signed: 11/19/2023 12:33 JEEVAN RILEY [facility]
--- OUTSIDE RECORDS SUMMARY | 2024-10-11 16:50 | XMS_ITS | Continuity of Care Document ---
Author Name [facility] Organization [facility] Care Team Providers Care Web Retailer Name Role Phone [facility] Unavailable Unavailable Problems Combined list of problems from Department of Defense and Veterans Affairs facilities. It does not include entries that were removed or entered in error. 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 cutting down from 5 cigars to 5 cigarettes [facility] Elevated blood-pressure reading without diagnosis of hypertension Active Condition [facility] HTN - Hypertension (SCT [id number]) Active Condition [facility] Hyperlipidemia (SCT [id number]) Active Condition Nov 06, 2018 Entered By: GIN BRADLEY Comment: address next visitDec 07, 2020 Entered By: GIN BRADLEY Comment: start atorvastatin 20mg qhs [facility] Hyponatremia Active Condition [facility] Hypothyroid Active Condition [facility] Multiple nodules of lung [facility] Osteoporosis Active Condition [facility] [place] Polyp Colon (SCT [id number]) Active Condition Jun 04, 2019 Entered By: GIN BRADLEY Comment: c-scope 06/02/19 normal exam, repeat May [address] [facility] Tobacco user Active [facility] Diagnosis: ICD-10-CM J44.9 Chronic obstructive pulmonary disease, unspecified [facility] Diagnosis: ICD-10-CM E03.9 Hypothyroidism, unspecified Active [facility] Diagnosis: ICD-10-CM E87.1 Hypo-osmolality and hyponatremia [facility] [place] Diagnosis: ICD-10-CM R91.1 Solitary pulmonary nodule Active Diagnosis [facility] [place] Diagnosis: ICD-10-CM M81.0 Age-related osteoporosis w/o current pathological fracture [facility] [place] Diagnosis: ICD-10-CM D35.2 Benign neoplasm of pituitary gland [facility] Diagnosis: ICD-10-CM K05.323 Chronic periodontitis, generalized, severe Active Diagnosis [facility] Medications Combined list of outpatient medications from Department of Defense and Veterans Affairs facilities.Medications provided include 1) outpatient medications from the last 15 months, and 2) patient-reported medications. Medication Details Route Status Patient Instructions Prescription Expires Prescription Number Last Dispense Date Ordering Provider Order Date Order Qty Source ALBUTEROL 90MCG/ACTUA T (CFC-F) INHL,ORAL,8 .5GM DOSE COUNTER INHALE 2 PUFFS BY MOUTH EVERY 4 HOURS NEEDED FOR BREATHIN G RESPIR ATORY (INHAL ATION) ACTIVE 09/15/2025 [id number] 5 SHERLYN BRADLEY 2024 3 [facility] ALBUTEROL 90MCG/ACTUA T (CFC-F) INHL,ORAL,8 .5GM DOSE COUNTER INHALE 2 PUFFS BY MOUTH EVERY 4 HOURS NEEDED FOR BREATHIN G RESPIR ATORY (INHAL ATION) DISCONT INUED 01/21/2025 [id number] 4 BERNARDINO NIELSEN 2023 3 [facility] ALBUTEROL 90MCG/ACTUA T (CFC-F) INHL,ORAL,8 .5GM DOSE COUNTER INHALE 2 PUFFS BY MOUTH EVERY 4 HOURS NEEDED RESPIR ATORY (INHAL ATION) DISCONT INUED 01/10/2024 [id number] 4 SHERLYN BRADLEY 2022 1 [facility] ALBUTEROL SO4 0.083% INHL,3ML INHALE 1 AMPULE IN NEBULIZE R EVERY 6 HOURS NEEDED FOR BREATHIN G RESPIR ATORY (INHAL ATION) ACTIVE 09/15/2025 [id number] 4 SHERLYN BRADLEY 2023 120 [facility] ATORVASTATI N CA 40MG TAB TAKE ONE-HALF TABLET BY MOUTH ONCE DAILY FOR CHOLESTE ROL ORAL ACTIVE 09/15/2025 [id number] 4 SHERLYN BRADLEY 2023 45 [facility] ATORVASTATI N CA 40MG TAB TAKE ONE-HALF TABLET BY MOUTH ONCE DAILY FOR CHOLESTE ROL ORAL DISCONT INUED 09/11/2024 [id number] 4 SHERLYN BRADLEY 2022 45 [facility] CALCIUM 200MG (CA CITRATE-950 MG) TAB TAKE THREE TABLETS BY MOUTH TWICE DAILY ORAL ACTIVE 12/13/2024 [id number] 4 SHERLYN BRADLEY 2023 540 [facility] [place] CALCIUM 200MG (CA CITRATE-950 MG) TAB TAKE THREE TABLETS BY MOUTH TWICE DAILY ORAL DISCONT INUED 10/07/2024 [id number] 4 RILEY,AL ICE 2023 540 [facility] [place] CHOLECALCIF UNA 25MCG (1,000UNIT) TAB TAKE ONE TABLET BY MOUTH ONCE DAILY FOR VITAMIN SUPPLEME NTATION ORAL ACTIVE 12/13/2024 [id number] 4 SHERLYN BRADLEY 2023 90 [facility] CHOLECALCIF UNA 25MCG (1,000UNIT) TAB TAKE ONE TABLET BY MOUTH ONCE DAILY FOR VITAMIN SUPPLEME NTATION ORAL DISCONT INUED 10/07/2024 [id number] RILEY,AL ICE 2023 90 [facility] CHOLECALCIF UNA 25MCG (1,000UNIT) TAB TAKE ONE TABLET BY MOUTH ONCE DAILY FOR VITAMIN SUPPLEME NTATION ORAL 04/26/2024 [id number] 4 RILEY,AL ICE 2022 90 [facility] DEMECLOCYCL INE HCL 150MG TAB TAKE ONE TABLET BY MOUTH TWICE DAILY FOR INFECTIO N ORAL ACTIVE 07/17/2025 [id number] 4 RILEY,AL ICE 2023 180 [facility] FLUTICASONE 250MCG/SALM ETEROL 50MCG INHL,ORAL,D ISKUS,60 INHALE 1 PUFF BY MOUTH TWICE DAILY - RINSE MOUTH AFTER USE REPLAC ES SYMBICOR T (BUDESON NAVID/FORM OTEROL)* * RESPIR ATORY (INHAL ATION) ACTIVE 09/15/2025 [id number] 4 SHERLYN BRADLEY 2023 1 [facility] FLUTICASONE 250MCG/SALM ETEROL 50MCG INHL,ORAL,D ISKUS,60 INHALE 1 PUFF BY MOUTH TWICE DAILY - RINSE MOUTH AFTER USE REPLAC ES SYMBICOR T (BUDESON NAVID/FORM OTEROL)* * RESPIR ATORY (INHAL ATION) DISCONT INUED 12/04/2024 [id number] 4 SHERLYN BRADLEY 2023 1 [facility] FLUTICASONE 250MCG/SALM ETEROL 50MCG INHL,ORAL,D ISKUS,60 INHALE 1 PUFF BY MOUTH TWICE DAILY - RINSE MOUTH AFTER USE REPLAC ES SYMBICOR T (BUDESON NAVID/FORM OTEROL)* * RESPIR ATORY (INHAL ATION) DISCONT INUED 10/02/2023 [id number] 3 BERNARDINO NIELSEN 2021 1 [facility] LEVOTHYROXI NE NA 88MCG TAB (SYNTHROID) TAKE ONE TABLET BY MOUTH EVERY MORNING 30 MINUTES BEFORE BREAKFAS T TAKE ON AN EMPTY STOMACH WITH A FULL GLASS OF WATER ORAL ACTIVE 09/15/2025 [id number] 4 SHERLYN BRADLEY 2023 90 [facility] LEVOTHYROXI NE NA 88MCG TAB (SYNTHROID) TAKE ONE TABLET BY MOUTH EVERY MORNING 30 MINUTES BEFORE BREAKFAS T TAKE ON AN EMPTY STOMACH WITH A FULL GLASS OF WATER ORAL DISCONT INUED 12/29/2024 [id number] 4 SHERLYN BRADLEY 2023 90 [facility] LEVOTHYROXI NE NA 88MCG TAB (SYNTHROID) TAKE ONE TABLET BY MOUTH EVERY MORNING 30 MINUTES BEFORE BREAKFAS T TAKE ON AN EMPTY STOMACH WITH A FULL GLASS OF WATER ORAL DISCONT INUED 11/05/2023 [id number] 3 SHERLYN BRADLEY 2022 90 [facility] LISINOPRIL 30MG TAB TAKE ONE TABLET BY MOUTH ONCE DAILY TO CONTROL BLOOD PRESSURE NOTE NEW TABLET STRENGTH ORAL ACTIVE 09/15/2025 [id number] 4 SHERLYN BRADLEY 2023 90 [facility] LISINOPRIL 30MG TAB TAKE ONE TABLET BY MOUTH ONCE DAILY TO CONTROL BLOOD PRESSURE NOTE NEW TABLET STRENGTH ORAL DISCONT INUED 09/11/2024 [id number] 4 SHERLYN BRADLEY 2022 90 [facility] NAPROXEN 500MG TAB TAKE ONE TABLET BY MOUTH EVERY 12 HOURS NEEDED TAKE WITH FOOD; FOR PAIN/INF LAMMATIO N/SWELLI NG ORAL ACTIVE 03/13/2025 [id number] 4 SHERLYN BRADLEY 2023 60 [facility] PREDNISONE 20MG TAB TAKE ONE TABLET BY MOUTH ONCE DAILY FOR ASTHMA ORAL ACTIVE 10/14/2024 [id number] 4 SHERLYN BRADLEY 2023 7 [facility] TIOTROPIUM 2.5MCG/ACTU AT INHL,ORAL,6 0D,4GM INHALE 2 PUFFS BY MOUTH ONCE DAILY THIS REPLACES TIOTROPI UM HANDIHAL ER CAPSULES RESPIR ATORY (INHAL ATION) SUSPEND ED 09/15/2025 [id number] 5 SHERLYN BRADLEY 2024 3 [facility] TIOTROPIUM 2.5MCG/ACTU AT INHL,ORAL,6 0D,4GM INHALE 2 PUFFS BY MOUTH ONCE DAILY THIS REPLACES TIOTROPI UM HANDIHAL ER CAPSULES RESPIR ATORY (INHAL ATION) DISCONT INUED 09/11/2024 [id number] 4 SHERLYN BRADLEY 2022 3 [facility] Allergies, Adverse Reactions, Alerts Combined list of allergies from Department of Defense and Veterans Affairs facilities. It does not include entries that were removed or entered in error. Substance Category Reaction Severity Reaction type Status Date Reported Comments Source HCTZ HYDROCHLOROTH IAZIDE Propensity to adverse reactions to drug (finding) active 8 [facility] Immunizations Combined list of available immunizations from the Department of Defense and Veterans Affairs facilities. Immunization Series Date Given Administered By Site Reaction Lot Number CVX Code Drug Pathology Lab Technician Status Comments Source COVID-19 (MODERNA), MRNA, LNP-S, PF, 50 MCG/0.5 ML (AGES 12+ YEARS) 2023 PADMINI BRASHER RIGHT DELTO ID [id number] 312 complet ed [facility] INFLUENZA, HIGH-DOSE, TRIVALENT, PF 2023 RADHA ZHANG LEFT DELTO ID [id number] A 135 complet ed [facility] PNEUMOCOCCAL CONJUGATE PCV20, POLYSACCHARID E [id number] CONJUGATE, ADJUVANT, PF 2023 ANSHUPADMINI LAURA RIGHT DELTO ID [id number] 216 complet ed [facility] COVID-19 (MODERNA), MRNA, LNP-S, PF, 50 MCG/0.5 ML (AGES 12+ YEARS) 2022 ANSHUPADMINI ROBLESA LEFT DELTO ID [id number] 312 complet ed [facility] INFLUENZA, HIGH-DOSE, QUADRIVALENT 2022 ANSHUPADMINI ROBLESA RIGHT DELTO ID [id number] 197 complet ed [facility] INFLUENZA VACCINE, QUADRIVALENT, ADJUVANTED 2021 ANSHUPADMINI ROBLESA RIGHT DELTO ID [id number] 205 complet ed [facility] INFLUENZA VACCINE, QUADRIVALENT, ADJUVANTED 2020 205 complet ed [facility] COVID-19 (MODERNA), MRNA, LNP-S, PF, 100 MCG OR 50 MCG DOSE 3 2020 207 complet ed [facility] COVID-19 (PFIZER), MRNA, LNP-S, PF, 30 MCG/0.3 ML DOSE 2 2020 208 complet ed PFR; [id number]; 1 [facility] COVID-19 (PFIZER), MRNA, LNP-S, PF, 30 MCG/0.3 ML DOSE 1 2020 208 complet ed PFR; [id number]; 1 [facility] ZOSTER RECOMBINANT 2 2019 187 complet ed [facility] INFLUENZA, TRIVALENT, ADJUVANTED 2019 168 complet ed [facility] ZOSTER RECOMBINANT 1 2019 187 complet ed [facility] INFLUENZA, INJECTABLE, QUADRIVALENT, PRESERVATIVE FREE 2018 150 complet ed Site: Left Deltoid [facility] PNEUMOCOCCAL CONJUGATE PCV 13 2018 133 complet ed [facility] INFLUENZA, TRIVALENT, ADJUVANTED 2018 168 complet ed Site: Right Deltoid [facility] PNEUMOCOCCAL POLYSACCHARID E [id number] 2017 33 complet ed [facility] TDAP 2017 115 complet ed Site: Right Deltoid [facility] Results Combined list of recent chemistry, hematology and other laboratory results from Department of Defense and Veterans Affairs, ranging from 15 months to all on record, depending upon the facility. Order Name Results Value Reference Range Date Interpretation Specimen Comments Source BASIC METABOLIC PANEL (non-fast ing) UREA NITROGEN [MASS/VOLUM E] IN SERUM OR PLASMA 16 mg/dL 7 - 25 09/06 Specimen Type: SERUM No comment entered. Ordering Provider: JOSÉ RILEY Report Released Date/Time: Jul 16, 2024 02:39 PM Reporting Lab: [facility] [address] [address] Performing Lab: [facility] [address] [address] [facility] BASIC METABOLIC PANEL (non-fast ing) GLUCOSE [MASS/VOLUM E] IN SERUM OR PLASMA 87 mg/dL 65 - 100 09/06 Specimen Type: SERUM No comment entered. Ordering Provider: JOSÉ RILEY Report Released Date/Time: Jul 16, 2024 02:39 PM Reporting [facility]: [facility] [address] [address] Performing Lab: [facility] [address] [address] [facility] BASIC METABOLIC PANEL (non-fast ing) SODIUM [MOLES/VOLU ME] IN SERUM OR PLASMA 137 mmol/L 135 - 145 09/06 Specimen Type: SERUM No comment entered. Ordering Provider: JOSÉ RILEY Report Released Date/Time: Jul 16, 2024 02:39 PM Reporting Lab: [facility] [address] [address] Performing Lab: [facility] [address] [address] [facility] BASIC METABOLIC PANEL (non-fast ing) POTASSIUM [MOLES/VOLU ME] IN SERUM OR PLASMA 4.6 mmol/L 3.5 - 5.0 09/06 Specimen Type: SERUM No comment entered. Ordering Provider: JOSÉ RILEY Report Released Date/Time: Jul 16, 2024 02:39 PM Reporting Lab: [address] [address] Performing Lab: [address] [address] [facility] BASIC METABOLIC PANEL (non-fast ing) CHLORIDE [MOLES/VOLU ME] IN SERUM OR PLASMA 97 mmol/L 100 - 110 09/06 L Specimen Type: SERUM No comment entered. Ordering Provider: JOSÉ RILEY Report Released Date/Time: Jul 16, 2024 02:39 PM Reporting Lab: [facility] [address] [address] Performing Lab: [facility] [address] [address] [facility] BASIC METABOLIC PANEL (non-fast ing) CARBON DIOXIDE, TOTAL [MOLES/VOLU ME] IN SERUM OR PLASMA 27 meq/L 20 - 30 09/06 Specimen Type: SERUM No comment entered. Ordering Provider: JOSÉ RILEY Report Released Date/Time: Jul 16, 2024 02:39 PM Reporting Lab: [address] [address] Performing Lab: [facility] [place] [facility] [address] [address] [facility] BASIC METABOLIC PANEL (non-fast ing) CREATININE [MASS/VOLUM E] IN SERUM OR PLASMA 0.89 mg/dL 0.50 - 1.40 09/06 Specimen Type: SERUM No comment entered. Ordering Provider: JOSÉ RILEY Report Released Date/Time: Jul 16, 2024 02:39 PM Reporting Lab: [facility] [place] [facility] [address] [address] Performing Lab: [facility] [address] [address] [facility] BASIC METABOLIC PANEL (non-fast ing) GLOMERULAR FILTRATION RATE/1.73 SQ M.PREDICTED [VOLUME RATE/AREA] IN SERUM, PLASMA OR BLOOD BY CREATININE- BASED FORMULA (CKD-EPI 2020) >90mL/ min 60 09/06 Specimen Type: SERUM No comment entered. Ordering Provider: JOSÉ RILEY Report Released Date/Time: Jul 16, 2024 02:39 PM Reporting Lab: [facility] [address] Performing Lab: [facility] [address] [facility] CBC LEUKOCYTES [#/VOLUME] IN BLOOD BY AUTOMATED COUNT 7.38 10*3/u L 4.50 - 11.00 09/06 Specimen Type: BLOOD No comment entered. Ordering Provider: BETSY BRADLEY Report Released Date/Time: Sep 01, 2024 12:06 PM Reporting Lab: [facility] [address] Performing Lab: [facility] [address] [facility] CBC ERYTHROCYTE S [#/VOLUME] IN BLOOD BY AUTOMATED COUNT 5.30 10*6/u L 4.23 - 5.66 09/06 Specimen Type: BLOOD No comment entered. Ordering Provider: BETSY BRADLEY Report Released Date/Time: Sep 01, 2024 12:06 PM Reporting Lab: [facility] [address] [address] Performing Lab: [facility] [address] [address] [facility] CBC HEMOGLOBIN [MASS/VOLUM E] IN BLOOD 17.9 g/dL 12.8 - 17 09/06 H Specimen Type: BLOOD No comment entered. Ordering Provider: BETSY BRADLEY Report Released Date/Time: Sep 01, 2024 12:06 PM Reporting Lab: [facility] [place] [facility] [address] [address] Performing Lab: [facility] [place] [address] [address] [facility] [place] [facility] CBC HEMATOCRIT [VOLUME FRACTION] OF BLOOD BY AUTOMATED COUNT 49.7 39.2 - 50.4 09/06 Specimen Type: BLOOD No comment entered. Ordering Provider: BETSY BRADLEY Report Released Date/Time: Sep 01, 2024 12:06 PM Reporting Lab: [facility] [place] [facility] [address] [address] Performing Lab: [facility] [place] [address] [address] [facility] [facility] CBC MCV [ENTITIC VOLUME] BY AUTOMATED COUNT 93.8 fL 82 - 99 09/06 Specimen Type: BLOOD No comment entered. Ordering Provider: BETSY BRADLEY Report Released Date/Time: Sep 01, 2024 12:06 PM Reporting Lab: [facility] [address] [address] Performing Lab: [facility] [place] [facility] [address] [address] [facility] CBC MCHC [MASS/VOLUM E] BY AUTOMATED COUNT 36.0 g/dL 30.8 - 35.1 09/06 H Specimen Type: BLOOD No comment entered. Ordering Provider: BETSY BRADLEY Report Released Date/Time: Sep 01, 2024 12:06 PM Reporting Lab: [facility] [address] [address] Performing Lab: [facility] [place] [facility] [address] [address] [facility] CBC PLATELETS [#/VOLUME] IN BLOOD BY AUTOMATED COUNT 150 10*3/u L 140 - 360 09/06 Specimen Type: BLOOD No comment entered. Ordering Provider: BETSY BRADLEY Report Released Date/Time: Sep 01, 2024 12:06 PM Reporting Lab: [facility] [address] [address] Performing Lab: [facility] [facility] [address] [address] [facility] [place] [facility] CBC ERYTHROCYTE DISTRIBUTIO N WIDTH [RATIO] BY AUTOMATED COUNT 12.8 12.0 - 16.0 09/06 Specimen Type: BLOOD No comment entered. Ordering Provider: BETSY BRADLEY Report Released Date/Time: Sep 01, 2024 12:06 PM Reporting Lab: [facility] [address] [address] Performing Lab: [facility] [address] [address] [facility] [place] [facility] CBC MCH [ENTITIC MASS] BY AUTOMATED COUNT 33.8 pg 26.2 - 32.6 09/06 H Specimen Type: BLOOD No comment entered. Ordering Provider: BETSY BRADLEY Report Released Date/Time: Sep 01, 2024 12:06 PM Reporting Lab: [facility] [address] [address] Performing Lab: [facility] [address] [place] [address] [facility] [facility] LIPID PANEL, NON FASTING CHOLESTEROL [MASS/VOLUM E] IN SERUM OR PLASMA 154 mg/dL 09/06 Specimen Type: SERUM No comment entered. Ordering Provider: BETSY BRADLEY Report Released Date/Time: Sep 01, 2024 12:06 PM Reporting Lab: [facility] [address] [address] Performing Lab: [facility] [address] [address] [facility] LIPID PANEL, NON FASTING TRIGLYCERID E [MASS/VOLUM E] IN SERUM OR PLASMA 71 mg/dL 0 - 150 09/06 Specimen Type: SERUM No comment entered. Ordering Provider: BETSY BRADLEY Report Released Date/Time: Sep 01, 2024 12:06 PM Reporting Lab: [address] [address] Performing Lab: [facility] [address] [address] [facility] LIPID PANEL, NON FASTING CHOLESTEROL IN LDL [MASS/VOLUM E] IN SERUM OR PLASMA BY CALCULATION 67 mg/dL 0 - 129 09/06 Specimen Type: SERUM No comment entered. Ordering Provider: BETSY BRADLEY Report Released Date/Time: Sep 01, 2024 12:06 PM Reporting Lab: [address] [address] Performing Lab: [facility] [address] [facility] LIPID PANEL, NON FASTING CHOLESTEROL .TOTAL/CHOL ESTEROL IN HDL [MASS RATIO] IN SERUM OR PLASMA 2.1 09/06 Specimen Type: SERUM No comment entered. Ordering Provider: BETSY BRADLEY Report Released Date/Time: Sep 01, 2024 12:06 PM Reporting Lab: [address] [address] Performing Lab: [facility] [address] [address] [facility] LIPID PANEL, NON FASTING CHOLESTEROL IN HDL [MASS/VOLUM E] IN SERUM OR PLASMA 73 mg/dL 40 - 60 09/06 H Specimen Type: SERUM No comment entered. Ordering Provider: BETSY BRADLEY Report Released Date/Time: Sep 01, 2024 12:06 PM Reporting Lab: [facility] [place] [facility] [address] [address] Performing Lab: [facility] [place] [facility] [address] [address] [facility] LIVER FUNCTION PROTEIN [MASS/VOLUM E] IN SERUM OR PLASMA 7.1 g/dL 6.0 - 8.3 09/06 Specimen Type: SERUM No comment entered. Ordering Provider: BETSY BRADLEY Report Released Date/Time: Sep 01, 2024 12:06 PM Reporting Lab: [facility] [place] [facility] [address] [address] Performing Lab: [facility] [place] [facility] [address] [address] [facility] LIVER FUNCTION ALBUMIN [MASS/VOLUM E] IN SERUM OR PLASMA 3.9 g/dL 3.5 - 5.0 09/06 Specimen Type: SERUM No comment entered. Ordering Provider: BETSY BRADLEY Report Released Date/Time: Sep 01, 2024 12:06 PM Reporting Lab: [facility] [place] [facility] [address] [address] Performing Lab: [facility] [place] [facility] [address] [address] [facility] LIVER FUNCTION ALKALINE PHOSPHATASE [ENZYMATIC ACTIVITY/VO LUME] IN SERUM OR PLASMA 116 U/L 40 - 150 09/06 Specimen Type: SERUM No comment entered. Ordering Provider: BETSY BRADLEY Report Released Date/Time: Sep 01, 2024 12:06 PM Reporting Lab: [facility] [place] [facility] [address] [address] Performing Lab: [facility] [place] [facility] [address] [address] [facility] [place] [facility] LIVER FUNCTION ASPARTATE AMINOTRANSF ERASE [ENZYMATIC ACTIVITY/VO LUME] IN SERUM OR PLASMA 38 U/L 5 - 34 09/06 H Specimen Type: SERUM No comment entered. Ordering Provider: BETSY BRADLEY Report Released Date/Time: Sep 01, 2024 12:06 PM Reporting Lab: [facility] [place] [facility] [address] [address] Performing Lab: [facility] [place] [facility] [address] [address] [facility] [place] [facility] LIVER FUNCTION ALANINE AMINOTRANSF ERASE [ENZYMATIC ACTIVITY/VO LUME] IN SERUM OR PLASMA 29 U/L 09/06 Specimen Type: SERUM No comment entered. Ordering Provider: BETSY BRADLEY Report Released Date/Time: Sep 01, 2024 12:06 PM Reporting Lab: [facility] [place] [facility] [address] [address] Performing Lab: [facility] [place] [facility] [address] [address] [facility] [place] [facility] LIVER FUNCTION BILIRUBIN.T OTAL [MASS/VOLUM E] IN SERUM OR PLASMA 1.2 mg/dL 0.2 - 1.2 09/06 Specimen Type: SERUM No comment entered. Ordering Provider: BETSY BRADLEY Report Released Date/Time: Sep 01, 2024 12:06 PM Reporting Lab: [facility] [place] [facility] [address] [address] Performing Lab: [facility] [place] [facility] [address] [address] [facility] [place] [facility] LIVER FUNCTION BILIRUBIN.D IRECT [MASS/VOLUM E] IN SERUM OR PLASMA 0.6 mg/dL 0 - 0.5 09/06 H Specimen Type: SERUM No comment entered. Ordering Provider: BETSY BRADLEY Report Released Date/Time: Sep 01, 2024 12:06 PM Reporting Lab: [facility] [place] [facility] [address] [address] Performing Lab: [facility] [place] [facility] [address] [address] [facility] [facility] COPEPTIN COPEPTIN 7.3 07/14 Specimen Type: SERUM Comment: REFERENCE RANGE: <= 13.7 pmol/L This test was developed and its analytical performance characteris tics have been determined by [employer] . It has not been cleared or approved by FDA. This assay has been validated pursuant to the CLIA regulations and is used for clinical purposes. Test performed by [employer] [place] [id number] Phone: Typesetting Supervisor: Estela Barlow MD,PHD,PATSY Test Reported by [facility], [employer] [facility], [address] [place] [address] Seamus Joseph M.D., Ph.D., Director of Laboratorie s , CLIA [id number] TEST PERFORMED AT: , Ordering Provider: JOSÉ RILEY Report Released Date/Time: Jul 13, 2024 09:00 AM Reporting Lab: [facility] [address] [address] Performing Lab: [facility] [address] [address] [facility] OSMOLALIT Y (URINE) OSMOLALITY OF URINE 354 300 - 1000 07/14 Specimen Type: URINE Comment: Manually entered by: RTO Ordering Provider: JOSÉ RILEY Report Released Date/Time: Jul 13, 2024 09:00 AM Reporting Lab: [facility] [place] [facility] [address] [address] Performing Lab: [facility] [address] [address] [facility] [place] [facility] OSMOLALIT Y (SERUM) OSMOLALITY OF SERUM OR PLASMA 267 280 - 300 07/14 L Specimen Type: SERUM Comment: Manually entered by: RTO Ordering Provider: JOSÉ RILEY Report Released Date/Time: Jul 13, 2024 09:00 AM Reporting Lab: [facility]AMTRN [place] [facility] [address] [address] Performing Lab: [facility]-BIRMINGHAMTRN [facility]ITAL[facility] [address] [facility] [address] [facility]ING[facility]AMTRN [place] [facility] SODIUM RANDOM URINE SODIUM, URINE 53 mmol/L 20 - 400 07/14 Specimen Type: URINE No comment entered. Ordering Provider: JOSÉ RILEY Report Released Date/Time: Jul 13, 2024 09:00 AM Reporting Lab: [facility]ITALUSE[address] [address] Performing Lab: [facility] [address] [address] [facility] [place] [facility] BASIC METABOLIC PANEL (non-fast ing) UREA NITROGEN [MASS/VOLUM E] IN SERUM OR PLASMA 15 mg/dL 7 - 25 07/14 Specimen Type: SERUM No comment entered. Ordering Provider: JOSÉ RILEY Report Released Date/Time: Jul 13, 2024 09:00 AM Reporting Lab: [facility] [place] [address] [address] Performing Lab: [facility]AMTRN [place] [facility] [address] [address] [facility]ITALRW[facility]OSPITALN [place] [facility] BASIC METABOLIC PANEL (non-fast ing) GLUCOSE [MASS/VOLUM E] IN SERUM OR PLASMA 95 mg/dL 65 - 100 07/14 Specimen Type: SERUM No comment entered. Ordering Provider: JOSÉ RILEY Report Released Date/Time: Jul 13, 2024 09:00 AM Reporting Lab: [facility]ITAL[facility] [address] [address] Performing Lab: [facility]ITALUSE[address] [address] [facility]ITALRV[facility]ER[facility]-BIRMINGHAMTRN [facility] BASIC METABOLIC PANEL (non-fast ing) SODIUM [MOLES/VOLU ME] IN SERUM OR PLASMA 128 mmol/L 135 - 145 07/14 L Specimen Type: SERUM No comment entered. Ordering Provider: JOSÉ RILEY Report Released Date/Time: Jul 13, 2024 09:00 AM Reporting Lab: [facility]ITAL[facility] C[facility]-BIRMINGHAMTRN [facility]ITALUS[facility] [address] [address] Performing Lab: [facility]N [facility]ITAL[facility] [address] [address] [facility]ITALUSE [facility] BASIC METABOLIC PANEL (non-fast ing) POTASSIUM [MOLES/VOLU ME] IN SERUM OR PLASMA 4.9 mmol/L 3.5 - 5.0 07/14 Specimen Type: SERUM No comment entered. Ordering Provider: JOSÉ RILEY Report Released Date/Time: Jul 13, 2024 09:00 AM Reporting Lab: [facility]ITALRV[facility]ER[facility]MINGHAMTRN [place] [facility] [address] [address] Performing Lab: [facility] W[facility]N [facility]ITAL[facility] [address] [address] [facility]ITALRWALKER COUNTY HOSPITALN [facility]OS[facility]ITALUSE [facility] BASIC METABOLIC PANEL (non-fast ing) CHLORIDE [MOLES/VOLU ME] IN SERUM OR PLASMA 88 mmol/L 100 - 110 07/14 L Specimen Type: SERUM No comment entered. Ordering Provider: JOSÉ RILEY Report Released Date/Time: Jul 13, 2024 09:00 AM Reporting Lab: [facility] [place] [facility] [address] [address] Performing Lab: [facility]ITALRL W[facility]N [facility]ITALUSE[facility] [address] [address] [facility]ITALRWALK[facility] COUNTY HOSPITALN [facility] BASIC METABOLIC PANEL (non-fast ing) CARBON DIOXIDE, TOTAL [MOLES/VOLU ME] IN SERUM OR PLASMA 24 meq/L 20 - 30 07/14 Specimen Type: SERUM No comment entered. Ordering Provider: JOSÉ RILEY Report Released Date/Time: Jul 13, 2024 09:00 AM Reporting Lab: [facility]ITAL[facility] TRN [facility] [address] [address] Performing Lab: [facility] [place] [facility] [address] [address] [facility]ITALRL WSTRN [facility]ITALUSE [facility] BASIC METABOLIC PANEL (non-fast ing) CREATININE [MASS/VOLUM E] IN SERUM OR PLASMA 0.91 mg/dL 0.50 - 1.40 07/14 Specimen Type: SERUM No comment entered. Ordering Provider: JOSÉ RILEY Report Released Date/Time: Jul 13, 2024 09:00 AM Reporting Lab: [facility]ITALRL TRN [facility]ITALUSE[facility] [address] [address] Performing Lab: [facility]ITALRL TRN [facility]ITALUSE[facility] [address] [address] [facility]ITALUSE [facility] BASIC METABOLIC PANEL (non-fast ing) GLOMERULAR FILTRATION RATE/1.73 SQ M.PREDICTED [VOLUME RATE/AREA] IN SERUM, PLASMA OR BLOOD BY CREATININE- BASED FORMULA (CKD-EPI 2020) 90 mL/min 60 07/14 Specimen Type: SERUM No comment entered. Ordering Provider: JOSÉ RILEY Report Released Date/Time: Jul 13, 2024 09:00 AM Reporting Lab: [facility]ITALRVETERANS AFF[facility] CENTER-BIRMINGHAMTRN [facility]ITALUSE[facility] [address] [address] Performing Lab: [facility]ITALRL TRN [facility]ITALUSE[facility] [address] [address] [facility] THYROID T4 FREE(FT4) (WROX) THYROXINE (T4) FREE [MASS/VOLUM E] IN SERUM OR PLASMA 1.38 ng/dL 0.6 - 1.6 07/12 Specimen Type: SERUM No comment entered. Ordering Provider: JOSÉ RILEY Report Released Date/Time: Jul 09, 2024 10:34 AM Reporting Lab: [facility] TRN [facility]ITAL[facility] [address] [address] Performing Lab: [facility]ITALRL TRN [facility]ITALUSE[facility] [address] [address] [facility]ITALRWALK[facility] COUNTY HOSPITALN [facility] Vital Signs Combined list of inpatient and outpatient Vital Signs from Department of Defense and Veterans Affairs, ranging from 12 months to all on record, depending upon the facility. Vital Sign Value Date Comments Source SYSTOLIC BLOOD PRESSURE 148 09/14/20 24 07:53:09 [facility] DIASTOLIC BLOOD PRESSURE 79 024 07:53:09 [facility] PULSE OXIMETRY 90 09/14/2024 07:53:09 [facility] WEIGHT 201 09/14/2024 07[facility]53:09 [facility] BMI 31kg/m2 09/14/2024 07:53:09 [facility] PAIN 0 09/14/2024 07[facility]53:09 [facility] HEIGHT 68 09/14/2024 07:53:09 [facility] TEMPERATURE 98.3 09/14/2024 07:53:09 [facility] PULSE 9 09/14/2024 07:53:09 [facility] RESPIRATION 20 09/14/2024 07:53:09 [facility] SYSTOLIC BLOOD PRESSURE 138 07/22/20 24 07:54:08 [facility] DIASTOLIC BLOOD PRESSURE 80 024 07:54:08 [facility] PULSE OXIMETRY 91 07/22/2024 07:54:08 [facility] WEIGHT 195 07/22/2024 07:54:08 [facility] BMI 30kg/m2 07/22/2024 07:54:08 [facility] PAIN 0 07/22/2024 07:54:08 [facility] TEMPERATURE 97.9 07/22/2024 07:54:08 [facility] PULSE 100 07/22/2024 07:54:08 [facility] RESPIRATION 16 07/22/2024 07:54:08 [facility] SYSTOLIC BLOOD PRESSURE 120 03/12/20 24 07:59:22 [facility] DIASTOLIC BLOOD PRESSURE 68 024 07:59:22 [facility] [place] PULSE OXIMETRY 92 03/12/2024 07:59:22 [facility] WEIGHT 194 03/12/2024 07:59:22 [facility] BMI 30kg/m2 03/12/2024 07:59:22 [facility] PAIN 0 03/12/2024 07:59:22 [facility] HEIGHT 68 03/12/2024 07:59:22 [facility] TEMPERATURE 97.5 03/12/2024 07:59:22 [facility] PULSE 97 03/12/2024 07:59:22 [facility] RESPIRATION 20 03/12/2024 07:59:22 [facility] SYSTOLIC BLOOD PRESSURE 160 01/21/20 24 08:27:03 [facility] DIASTOLIC BLOOD PRESSURE 80 024 08:27:03 [facility] [facility] PULSE OXIMETRY 93 01/21/2024 08:27:03 [facility] WEIGHT 199 01/21/2024 08:27:03 [facility] BMI 30kg/m2 01/21/2024 08:27:03 [facility] PAIN 0 01/21/2024 08:27:03 [facility] TEMPERATURE 97.5 01/21/2024 08:27:03 [facility] PULSE 102 01/21/2024 08:27:03 [facility] RESPIRATION 20 01/21/2024 08:27:03 [facility] SYSTOLIC BLOOD PRESSURE 144 10/23/19 24 09:14:34 [facility] DIASTOLIC BLOOD PRESSURE 77 024 09:14:34 [facility] PULSE OXIMETRY 93% 10/23/2023 09:14:34 [facility] WEIGHT 197.2 10/23/2023 09:14:34 [facility] BMI 30kg/m2 10/23/2023 09:14:34 [facility] PAIN 0 10/23/2023 09:14:34 [facility] TEMPERATURE 97.7 10/23/2023 09:14:34 [facility] PULSE 96 10/23/2023 09:14:34 [facility] RESPIRATION 20 10/23/2023 09:14:34 [facility] Encounters Combined list of: 1) Encounters from Department of Veterans Affairs facilities going back up to thelast 18 months. 2) Encounters from the Department of Defense facilities going back up to 280 months. 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
RHONDA RILEY 04/21 [facility] En[facility] [id number] 04/26 [facility] En[facility] [id number] 05/19 [facility] [place] DENTAL PANORAMIC IMAGE [id number] Diagnos is: ICD-10- CM K05.323 Chronic periodo ntitis, general ized, severe< br/> ALYRISSA AM 05/20 [facility] En[facility] [id number] 06/06 [facility] Outpatient Encounter [id number] 09/04 [facility] [place] [facility] OFFICE O/P EST LOW 20-29 MIN [id number] Diagnos is: ICD-10- CM R91.1 Solitar y pulmona ry nodule< br/> Meseret BRADLEY 09/11 [facility] [place] [place] Outpatient Encounter [id number] 10/04 [facility] [place] OFF[place] HI 40 MIN [id number] Diagnos is: ICD-10- CM 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
RHONDA RILEY 10/23 [facility] [place] Outpatient Encounter [id number] 10/25 [facility] [place] Outpatient Encounter [id number] 11/04 [facility] 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<b r/> RHONDA RILEY 11/19 [facility] En[facility] [id number] [facility] En[facility] [id number] 12/28 [facility] En[facility] [id number] 12/28 [facility] En[facility] [id number] 12/29 [facility] OFFICE O/P EST MOD 30 MIN [id number] Diagnos is: ICD-10- CM 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
RHONDA RILEY CE 01/20 [facility] En[facility] [id number] 01/20 [facility] En[facility] [id number] 01/24 [facility] En[facility] [id number] 03/04 [facility] OFF[facility] O/P EST LOW 20 MIN [id number] Diagnos is: ICD-10- CM R91.1 Solitar y pulmona ry nodule< br/> Meseret BRADLEY 03/12 [facility] En[facility] [id number] 03/24 [facility] En[facility] [id number] 04/01 [facility] En[facility] [id number] 07/13 [facility] En[facility] [id number] Diagnos is: ICD-10- CM 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<b r/> RHONDA RILEY 07/13 [facility] En[facility] [id number] 07/16 [facility] OFF[facility] O/P EST MOD 30 MIN [id number] Diagnos is: ICD-10- CM 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<b r/> RHONDA RILEY 07/22 [facility] [place] ADMIN [id number] Diagnos is: ICD-10- CM E03.9 Hypothy roidism , unspeci fied
SALENARUMA AlmaguerJoselo Powell 07/22 [facility] Outpatient Encounter [id number] 09/08 [facility] OFFICE O/P EST HI 40 MIN [id number]. Diagnos is: ICD-10- CM J44.9 Chronic obstruc tive pulmona ry disease , unspeci fied
Meseret BRADLEY J 09/14 [facility] Outpatient Encounter [id number] 09/14 [facility] PRO PHONE CALL 11-20 MIN [id number] Diagnos is: ICD-10- CM J44.9 Chronic obstruc tive pulmona ry disease , unspeci fied
JARMOLOWIC Z,ITA 09/17 [facility] Social History Combined list of available smoking, tobacco, and other social history from Department of Defense and Veterans Affairs facilities. Social History Type Response Date Comment Sourc e Tobacco smoking status OKIS VA-TOBACCO USE EVERY DAY CIGARETTES 09/14/2024 [facility] [place] [facility] History of tobacco use VA-TOBACCO NEVER USED OTHER TYPE 09/14/2024 [facility] [place] [facility] History of tobacco use VA-TOBACCO USER EVERY DAY 09/04/2023 [facility] History of tobacco use VA-TOBACCO USER EVERY DAY 10/01/2022 [facility] [place] [facility] History of tobacco use VA-TOBACCO USER EVERY DAY 09/07/2021 [facility] History of tobacco use SC-TOBACCO USER EVERY DAY 06/08/2020 [facility] History of tobacco use SC-TOBACCO USE IT SOLUTIONS ARCHITECT NO 02/01/2019 [facility] History of tobacco use CURRENT SMOKER 04/02/2018 [facility] Plan of Care List of future care activities from Department of [facility] Affairs facilities. Additional future care activities may be listed in the Assessment and Plan section. Date/Time Care Activity Care Activity Detail Facili ty 10/15/2024 AMBULATORY - NONE AMBULATORY - NONE [facility] 01/20/2025 AMBULATORY - MEDICINE [facility]/14/2024 Consult Order [facility]-P ULMONARY Cons Registered Health Nurse's Choice [facility] 10/15/2024 Imaging - CT Scan Order CT THORAX W/O CON T [facility]
--- OUTSIDE RECORDS SUMMARY | 2024-10-11 16:50 | XMS_ITS ---
Author Name [facility] [place] Organization [facility] [place] Address [address] [place] [id number] Care Team Providers Care Sprinkler Fitter Apprentice Name Role Phone SHERLYN BRADLEY Primary [facility] Insurance Providers: All historical and current Section [...] PART B Apr 05, 2020 PART B [id number] NIKOLECOCO MOCK PATIENT MEDICARE (WNR) MEDICARE (M) PART A Mar 06, 2019 PART A [id number] COCO FARLEY PATIENT Selected Encounter This section includes the information on record at [place] for the Encounter. Date/Time Encounter Type Encounter Description Reason Provider Source Oct 23, 2023 09:00 AM OFFICE O/P EST HI 40 MIN ENDOCRINOLOGY ICD-10-CM M81.0 Age-related osteoporosis w/o current pathological fracture JEEVAN RILEY Encounter Template Text not used by [facility] Assessments - Encounter Diagnoses This section includes the primary and secondary diagnoses documented for the Encounter. Date/Time Primary/Secondary Diagnosis Diagnosis Name Provider Source Oct 23, 2023 06:10 PM PRIMARY Age-related osteoporosis w/o current pathological fracture [facility]AVN RILEY [facility] [place] [facility] Oct 23, 2023 06:10 PM SECONDARY Benign neoplasm of pituitary gland JEEVAN RILEY [facility] Oct 23, 2023 06:10 PM SECONDARY Hypothyroidism, unspecified [facility]EE[facility]AN RILEY [facility] Plan of Treatment: Future Appointments (+ 6 months) and Future Tests (+/- 45 days) The Plan of Treatment section includes future care activities for the patient [facility] [place] [facility] This section includes future appointments and future orders which are active, pending or scheduled. Future Appointments This section includes appointments that were scheduled to occur 6 months from the date of the Encounter, up to a maximum of 20 appointments. The data comes from all [place] treatment facilities. Appointment Date/Time Appointment Type Appointme nt Facility Name Nov 18, 2023 07:00 AM AMBULATORY - MEDICINE [facility] Dec 30, 2023 03:20 PM AMBULATORY - MEDICINE [facility] Jan 21, 2024 08:30 AM AMBULATORY - MEDICINE [facility] Mar 12, 2024 08:30 AM AMBULATORY - MEDICINE [facility] NTR [facility] Apr 01, 2024 09:00 AM AM[facility]ULATORY - [facility] Lab Results: +/- 30 days of the encounter This section includes the Chemistry and Hematology Lab Results on record with [place] for the patient. Radiology Reports and Pathology Reports are provided separately, in subsequent sections. Lab Results This section contains the Chemistry/Hematology Results that were resulted 30 days before or 30 daysafter the date of the Encounter. Date/Time Source Result Type Result - Unit Interpretation Reference Range Comment Oct 23, 2023 09:48 AM [facility] PROLACTIN Specimen Type: SERUM Comment: PROLACTIN female range:PREMENOPAU LORENZO 3-27, POSTMENOPAUSAL 2-20 Male range changed from 2-14 to 3-20 on 12/28/12. Ordering Provider: SHERLYN BRADLEY Report Released Date/Time: Sep 11, 2023 08:04 AM Reporting Lab: [facility] [address] [facility] [address] Performing Lab: [facility] [address] [facility] [address] PROLACTIN 8.67 ng/mL 3-20 Oct 23, 2023 09:48 AM [facility] ALPHA SUBUNIT (Q) Specimen Type: [...] analytical performance characteristics have been determined by [email or web address]. It has not been cleared or approved by FDA. This assay has been validated pursuant to the CLIA regulations and is used for clinical purposes. Test performed by [employer] [address] [place] [address] Knife Setter Assembler: Estela Barlow MD,PHD,PATSY Test Reported by [facility], [employer] [place], [address] [place] [address] Seamus Joseph M.D., Ph.D., Director of Laboratories , CLIA [id number] TEST PERFORMED AT: , Ordering Provider: JEEVAN RILEY Report Released Date/Time: Oct 23, 2023 09:23 AM Reporting Lab: [facility] [address] [facility] [address] Performing Lab: [facility] [address] [address] ALPHA SUBUNIT (Q) 0.2 ng/mL Oct 23, 2023 09:48 AM [facility] IGF1 PANEL Specimen Type: SERUM Comment: This test was developed and its analytical performance characteristics have been determined by [email or web address]. It has not been cleared or approved by FDA. This assay has been validated pursuant to the CLIA regulations and is used for clinical purposes. TEST PERFORMED AT: , Test performed by [employer] [address] [place], [place] [address], [place] [address] Knife Setter Assembler: Estela Barlow MD,PHD,PATSY Test Reported by [facility], [employer] [facility], [address] [place] [address] Seamus Joseph M.D., Ph.D., Director of Laboratories , [facility] [id number] Ordering Provider: JEEVAN RILEY Report Released Date/Time: Oct 23, 2023 09:23 AM Reporting Lab: [facility] [place] [facility] [address] [facility] [address] Performing Lab: [facility] [place] [facility] [address] [address] IGF1 168 ng/mL 34-245 IGF Z SCORE, MALE 0.9 -2.0-+2.0 Oct 23, 2023 09:48 AM [facility] [place] [facility] PTH INTACT Specimen Type: SERUM No comment entered. Ordering Provider: JEEVAN RILEY Report Released Date/Time: Oct 23, 2023 09:28 AM Reporting Lab: [facility] [place] [facility] [address] [facility] [address] Performing Lab: [facility] [place] [facility] [address] [facility] [address] PTH INTACT 48.9 pg/mL 10-65 Oct 23, 2023 09:48 AM [facility] CALCIUM Specimen Type: SERUM No comment entered. Ordering Provider: JEEVAN RILEY Report Released Date/Time: Oct 23, 2023 09:28 AM Reporting Lab: [facility] [place] [facility] [address] [facility] [address] Performing Lab: [facility] [place] [facility] [address] [facility] [address] CALCIUM 9.5 mg/dL 8.5-10.2 Oct 23, 2023 09:48 AM [facility] VITAMIN D (25-OH) Specimen Type: SERUM No comment entered. Ordering Provider: JEEVAN RILEY Report Released Date/Time: Oct 23, 2023 09:28 AM Reporting Lab: [facility] [place] [facility] [address] [facility] [address] Performing Lab: [facility] [address] [facility] [address] VITAMIN D (25-OH) 46 ng/mL 20-50 Oct 23, 2023 09:48 AM [facility] BASIC METABOLIC PANEL (fasting) Specimen Type: SERUM No comment entered. Ordering Provider: JEEVAN RILEY Report Released Date/Time: Oct 23, 2023 09:28 AM Reporting Lab: [facility] [address] [facility] [address] Performing Lab: [facility] [address] [address] UREA NITROGEN 21 mg/dL 7-25 GLUCOSE 106 mg/dL H 65-100 SODIUM 138 mmol/L 135-145 POTASSIUM 4.8 mmol/L 3.5-5.0 CHLORIDE 100 mmol/L 100-110 CO2 27 meq/L 20-30 CREATININE, Serum 0.87 mg/dL 0.50-1.40 eGFR(CKD-EPI 2020) >90 mL/min >60 Oct 02, 2023 10:32 AM [facility] THYROID T4 FREE(FT4) Specimen Type: SERUM No comment entered. Ordering Provider: SHERLYN BRADLEY Report Released Date/Time: Sep 01, 2023 01:19 PM Reporting Lab: [facility] [address] [facility] [address] Performing Lab: [facility] [address] [facility] [address] THYROID T4 FREE(FT4) 1.22 ng/dL 0.6-1.6 Oct 02, 2023 10:32 AM [facility] TSH Specimen Type: SERUM No comment entered. Ordering Provider: SHERLYN BRADLEY Report Released Date/Time: Sep 01, 2023 01:19 PM Reporting Lab: [facility] [address] [facility] [address] Performing Lab: [facility] [address] [address] TSH 0.77 u[IU]/mL 0.35-5.00 Oct 02, 2023 10:32 AM [facility] BASIC METABOLIC PANEL (fasting) Specimen Type: SERUM No comment entered. Ordering Provider: SHERLYN BRADLEY Report Released Date/Time: Sep 01, 2023 01:19 PM Reporting Lab: [address] [address] Performing Lab: [address] [address] UREA NITROGEN 13 mg/dL 7-25 GLUCOSE 97 mg/dL 65-100 SODIUM 135 mmol/L 135-145 POTASSIUM 4.4 mmol/L 3.5-5.0 CHLORIDE 99 mmol/L L 100-110 CO2 25 meq/L 20-30 CREATININE, Serum 0.80 mg/dL 0.50-1.40 eGFR(CKD-EPI 2020) >90 mL/min >60 Oct 02, 2023 10:32 AM [facility] CBC Specimen Type: BLOOD No comment entered. Ordering Provider: SHERLYN BRADLEY Report Released Date/Time: Sep 01, 2023 01:19 PM Reporting Lab: [address] [address] Performing Lab: [address] [address] WBC 8.05 10*3/uL 4.50-11.00 RBC 4.73 10*6/uL 4.23-5.66 HGB 15.6 g/dL 12.8-17 HCT 45.2 39.2-50.4 MCV 95.6 fL 82-99 MCHC 34.5 g/dL 30.8-35.1 PLT 190 10*3/uL 140-360 RDW-CV 12.3 12.0-16.0 MCH 33.0 pg H 26.2-32.6 Oct 02, 2023 10:32 AM [facility] LIPID PANEL FASTING Specimen Type: SERUM No comment entered. Ordering Provider: SHERLYN BRADLEY Report Released Date/Time: Sep 01, 2023 01:19 PM Reporting Lab: [facility] [address] [facility] [address] Performing Lab: [facility] [address] [facility] [address] CHOLESTEROL 179 mg/dL TRIGLYCERIDE 69 mg/dL 0-150 LDL calculated 95 mg/dL 0-129 CHOL/HDL 2.6 HDL CHOLESTEROL 70 mg/dL H 40-60 Oct 02, 2023 10:32 AM [facility] HEMOGLOBIN A1C PANEL Specimen Type: [...] Sep 01, 2023 01:19 PM Reporting Lab: [facility] [address] [facility] [address] Performing Lab: [address] [address] HEMOGLOBIN A1C 5.1 4.0-5.6 Oct 02, 2023 10:32 AM [facility] VITAMIN D (25-OH) Specimen Type: SERUM No comment entered. Ordering Provider: SHERLYN BRADLEY Report Released Date/Time: Sep 01, 2023 01:19 PM Reporting Lab: [facility] [address] [facility] [address] Performing Lab: [address] [address] VITAMIN D (25-OH) 41 ng/mL 20-50 Oct 02, 2023 10:32 AM [facility] LIVER FUNCTION Specimen Type: SERUM No comment entered. Ordering Provider: SHERLYN BRADLEY Report Released Date/Time: Sep 01, 2023 01:19 PM Reporting Lab: [address] [address] Performing Lab: [facility] [place] [facility] [address] [facility] [address] PROTEIN,TOTAL 6.7 g/dL 6.0-8.3 ALBUMIN 4.1 g/dL 3.5-5.0 ALKALINE PHOSPHATASE 92 U/L 40-150 AST 36 U/L H 5-34 ALT 35 U/L BILIRUBIN, TOTAL 1.0 mg/dL 0.2-1.2 Oct 02, 2023 10:31 AM [facility] [place] [facility] PROLACTIN Specimen Type: SERUM Comment: PROLACTIN female range:PREMENOPAU LORENZO 3-27, POSTMENOPAUSAL 2-20 Male range changed from 2-14 to 3-20 on 12/28/12. Ordering Provider: JEEVAN RILEY Report Released Date/Time: Apr 21, 2023 09:25 AM Reporting Lab: [facility] [place] [facility] [address] [facility] [address] Performing Lab: [facility] [address] [facility] [address] PROLACTIN 9.11 ng/mL -Oct 02, 2023 10:31 AM [facility] CALCIUM Specimen Type: SERUM No comment entered. Ordering Provider: JEEVAN RILEY Report Released Date/Time: Apr 21, 2023 09:25 AM Reporting Lab: [facility] [place] [facility] [address] [facility] [address] Performing Lab: [facility] [address] [facility] [address] CALCIUM 9.5 mg/dL 8.5-10.2 Vital Signs: All taken on the encounter date This section contains inpatient and outpatient Vital Signs collected on the date of the Encounter. Date/Time Temperature Pulse Blood Pressure Respiratory Rate SP02 Pain Height Weight Body Mass Index Source Oct 23, 2023 09:14 AM 97.7 F 96 /min 144/77 mm[Hg] 20 /min 93 % 0 197.2 lb 30 [facility] [facility] Social History: Smoking Status (Most current) and Tobacco Use (All prior to encounter date) This section includes the most current, and the historical, smoking and tobacco- related health factors from the [place] facility where the Encounter took place. Current Smoking Status This section includes the most current smoking, or tobacco-related health factor, from the [place] facility where the Encounter took place. Date/Time Current Smoking Status Comment Facil ity Sep 04, 2023 01:14 PM VA-TOBACCO USER EVERY DAY [place] [facility] [place] [facility] Tobacco Use History This section includes a history of the smoking, or tobacco-related health factors, that were collected on or before the date of the Encounter. The data comes from the [place] facility where the Encounter took place. Date/Time Smoking Status/Tobacco Use Comment F acility Sep 04, 2023 01:14 PM VA-TOBACCO USE ADVICE [facility] [place] [facility] Sep 04, 2023 01:14 PM VA-TOBACCO USE SADDLE TREE STITCHER NO [facility] [place] [facility] Sep 04, 2023 01:14 PM VA-TOBACCO USE MED NO [facility] [facility] Sep 04, 2023 01:14 PM VA-TOBACCO USE WI 30 MIN OF WAKEUP [place] [facility] [place] [facility] Sep 04, 2023 01:14 PM VA-TOBACCO USER EVERY DAY [facility] [facility] Oct 01, 2022 09:45 AM VA-TOBACCO DOESNT USE WI 30 MIN WAKEUP [facility] [place] [facility] Oct 01, 2022 09:45 AM VA-TOBACCO USE 30 YEARS OR MORE [facility] [place] [facility] Oct 01, 2022 09:45 AM VA-TOBACCO USE ADVICE [facility] [facility] Oct 01, 2022 09:45 AM VA-TOBACCO USE SADDLE TREE STITCHER NO [facility] [place] [facility] Oct 01, 2022 09:45 AM VA-TOBACCO USE MED NO [facility] [place] [facility] Oct 01, 2022 09:45 AM VA-TOBACCO USER EVERY DAY [facility] [place] [facility] Sep 07, 2021 10:30 AM VA-TOBACCO USE 30 YEARS OR MORE [facility] [facility] Sep 07, 2021 10:30 AM VA-TOBACCO USE ADVICE [facility] [facility] Sep 07, 2021 10:30 AM VA-TOBACCO USE SADDLE TREE STITCHER NO [facility] [facility] Sep 07, 2021 10:30 AM VA-TOBACCO USE MED NO [facility] [facility] Sep 07, 2021 10:30 AM VA-TOBACCO USE [place] 30 MIN OF WAKEUP [facility] [place] [facility] Sep 07, 2021 10:30 AM VA-TOBACCO USER EVERY DAY [facility] [place] [facility] Jun 08, 2020 09:00 AM VA-TOBACCO USE 30 YEARS OR MORE [facility] [facility] Jun 08, 2020 09:00 AM VA-TOBACCO USE ADVICE [facility] [place] [facility] Jun 08, 2020 09:00 AM VA-TOBACCO USE SADDLE TREE STITCHER NO [facility] [facility] Jun 08, 2020 09:00 AM VA-TOBACCO USE MED NO [facility] [facility] Jun 08, 2020 09:00 AM VA-TOBACCO USE [place] 30 MIN OF WAKEUP [facility] [place] [facility] Jun 08, 2020 09:00 AM VA-TOBACCO USER EVERY DAY [facility] [facility] Feb 01, 2019 02:27 PM VA-TOBACCO USE 30 YEARS OR MORE [facility] [facility] Feb 01, 2019 02:27 PM VA-TOBACCO USE ADVICE [facility] [place] [facility] Feb 01, 2019 02:27 PM VA-TOBACCO USE SADDLE TREE STITCHER NO [facility] [facility] Feb 01, 2019 02:27 PM VA-TOBACCO USE MED NO [facility] [facility] Feb 01, 2019 02:27 PM VA-TOBACCO USE WI 30 MIN OF WAKEUP [facility] [facility] Feb 01, 2019 02:27 PM VA-TOBACCO USER EVERY DAY [facility] [facility] Apr 02, 2018 02:47 PM CURRENT SMOKER VA C [facility]L [facility] [facility] Apr 02, 2018 02:47 PM V1-PT DECLINES REF TO TOBACCO CESS PRGM [facility] [place] [facility] Apr 02, 2018 02:47 PM V1-PT DECLINES TOB ACCO CESSATION MEDS [facility] [place] [facility] Apr 02, 2018 02:47 PM V1-PT THINKING ABO UT QUIT TOBACCO USE [facility] Radiology Reports: +/- 30 days of [...] the Encounter. The data comes from all [place] treatment facilities. Date/Time Radiology Report Provider Source Nov 18, 2023 02:00 PM OUTSIDE MRI BRAIN W/WO CONTRAST: [place]ILIPALIYAHKINGSTON [id number] -[id number] M Exm Date: NOV 18, 2023@14:00 Req Phys: JEEVAN RILEY Loc: NHM/ENDOCRINE (Req'g Loc) Img Loc: OUTSIDE GENERAL RADIOLOGY Service: Unknown (Case [id number] COMPLETE) OUTSIDE MRI BRAIN W/WO CONTRAST (RAD Detailed) CPT:03395 Reason for Study: benign pituitary neoplasm Clinical History: Report Status: Electronically Filed Date Reported: DEC 01, 2023 Report: Please see report in [facility]. Impression: Please see report in [facility]. Primary Diagnostic Code: VERIFIED BY: / *ELECTRONICALLY FILED* [facility] Encounter Notes: All associated encounter notes This section contains the clinical notes associated to the Encounter. Date/Time Encounter Note(s) Provider Source Oct 20, 2023 01:28 PM PHYSICIAN NOTE: LOCAL TITLE: NOTE STANDARD TITLE: PHYSICIAN NOTE DATE OF NOTE: OCT 20, 2023@13:28 ENTRY DATE: OCT 20, 2023@13:28:08 AUTHOR: JEEVAN RILEY EXP COSIGNER: URGENCY: STATUS: COMPLETED CC: Benign pituitary neoplasm, osteoporosis, (central) hypothyroidism HPI: Doing reasonably well. No falls or fractures Please see previous notes for historical details.Calcium and vitamin D fills fairly up to date. Dairy is rare in diet. He underwent [place] dental screen for bisphosphonates, and was referred to oral surgery. He desires to proceed, but CC could not reach pt. Administration of thyroid is on an empty stomach and apart from other medications. No temp intolerance. Occ constipation No tremor. Has some visual field loss, stable. Followed by eye. All recent endocrine labs were reviewed with the patient. SERUM Oct 02 Oct 02 Apr 10 Jan 09 Reference 2022 2022 2022 2022 CREATININE 0.80 0.79 mg/dL .5 - 1.4 CA 9.5 9.9 9.5 mg/dL 8.5 - 10.2 Oct 02, 2023@10:32 VITAMIN D (25-OH): 41 ng/mL 20 - 50 Apr 10, 2023@07:54 PTH INTACT: 49.3 pg/mL 10 - 65 SERUM Oct 02 Oct 02 Reference 2022 2022 TSH 0.77 uIU/mL .35 - 5 FT4 1.22 ng/dL .6 - 1.6 FEBRUARY 11, 2023 Study: DEXA scan. Comparison: None. Findings: T score of -2.5 in the hip, and -1.2 in the lumbar spine. MRI 09/27/2022, enlarged pituitary with cystic region, as well as adjacent hypoenhancing focus on R side of pituitary was seen, which could reflect pituitary adenoma, no mass effect. This is 4x5x4 mm, and there is also an area of heterogeneous T2 signal with enhancement. The posterior pituitary bright spot is not seen. Active problems - Computerized Problem List is the source for the followin. Multiple nodules of lung 2. Osteoporosis 3. Benign neoplasm of pituitary gland 4. Diplopia 5. Hypothyroid 6. Polyp Colon ([facility] [id number]) 7. Aneurysm of thoracic aorta 8. HTN - Hypertension ([facility] [id number]) 9. Hyperlipidemia ([facility] [id number]) 10. Chronic obstructive lung disease 11. Tobacco user 12. Elevated blood-pressure reading without diagnosis of hypertension 13. Dyspnea ([facility] [id number]) 14. Diagnosis or Condition Deferred on [facility] Active Outpatient Medications (including Supplies): Active Outpatient Medications Status 1) ALBUTEROL 90MCG (CFC-F) 200D ORAL INHL INHALE 2 PUFFS ACTIVE BY MOUTH EVERY 4 HOURS NEEDED 2) ATORVASTATIN CALCIUM 40MG TAB TAKE ONE-HALF TABLET BY ACTIVE MOUTH ONCE DAILY FOR CHOLESTEROL 3) CALCIUM 200MG (CA CITRATE-950MG) TAB TAKE THREE ACTIVE TABLETS BY MOUTH TWICE DAILY 4) CHOLECALCIF 25MCG (D3-1,000UNIT) TAB TAKE ONE TABLET ACTIVE BY MOUTH ONCE DAILY FOR VITAMIN SUPPLEMENTATION 5) LEVOTHYROXINE NA (SYNTHROID) 88MCG TAB TAKE ONE ACTIVE TABLET BY MOUTH EVERY MORNING 30 MINUTES BEFORE BREAKFAST TAKE ON AN EMPTY STOMACH WITH A FULL GLASS OF WATER 6) LISINOPRIL 30MG TAB TAKE ONE TABLET BY MOUTH ONCE ACTIVE DAILY TO CONTROL BLOOD PRESSURE NOTE NEW TABLET STRENGTH 7) TIOTROPIUM 2.5MCG/ACTUAT 60D ORAL INHL INHALE 2 PUFFS ACTIVE BY MOUTH ONCE DAILY THIS REPLACES TIOTROPIUM HANDIHALER CAPSULES 8) TRIAMCINOLONE ACETONIDE 0.1% CREAM APPLY A THIN LAYER ACTIVE TOPICALLY TWICE DAILY FOR CONTACT DERMATITIS SHx:He and sister live together ROS: PE:affect pleasant appropriate speaking easily in full sentences no cushinoid or acromegalic features A/P: Active problems - Computerized Problem List is the source for the followin. Osteoporosis consistently take calcium and vitamin D re-referral 3. Benign neoplasm of pituitary gland MRI pituitary refer Neurosurgery 5. Hypothyroid (central) continue present levothyroxine dose Dr. Wheat, would you kindly re order referral for CC? Pt would like to proceed with this Medication Reconciliation: Outpatient: Has the patient been taking medications as documented in the EMLR? YES: The patient has been taking medications as documented in the EMLR. Essential Medication List for Review used to complete this medication reconciliation. INCLUDED IN THIS LIST: Alphabetical list of active outpatient prescriptions dispensed from this [facility] (local) and dispensed from another [place] or [facility] facility (remote) as well as inpatient orders (local, pending and active), local clinic medications, locally documented non-VA medications, and local prescriptions that have or been discontinued in the past 90 days. - All changes in medications, including all non-VA/Herbal/OTC medications were entered into CPRS. - If there were any medications the patient should no longer take, they were discontinued. - The patient/caregiver was instructed to update this list, discard old lists, and take this list to the next appointment, whether with a VA or non-VA provider. JLV Link Data on this list may not be complete. Please check JLV. Allergies/ADRs (Tool #5) FACILITY ALLERGY/ADR -------- No Remote Allergy/ADR Data available for this patient [place] [facility] [place] [facility] HCTZ HYDR[facility]OROTHIAZIDE [facility] (Tool #1) INCLUDED IN THIS LIST: Alphabetical list of active outpatient prescriptions dispensed from this [place] (local) and dispensed from another VA or DoD facility (remote) as well as inpatient orders (local pending and active), local clinic medications, locally documented non-VA medications, and local prescriptions that have or been discontinued in the past 90 days. Non-VA Meds Last Documented On: Data not found NOTE The display of VA prescriptions dispensed from another VA or DoD facility (remote) is limited to active outpatient prescription entries matched to National Drug File at the originating site and may not include some items such as investigational drugs, compounds, etc. NOT INCLUDED IN THIS LIST: Medications self-entered by the patient into personal health records (i.e. [employer]) are NOT included in this list. Non-VA medications documented outside this [place], remote inpatient orders (regardless of status) and remote clinic medications are NOT included in this list. The patient and provider must always discuss medications the patient is taking, regardless of where the medication was dispensed or obtained. OUTPT ALBUTEROL 90MCG (CFC-F) 200D ORAL INHL (Status = Active) INHALE 2 PUFFS BY MOUTH EVERY 4 HOURS NEEDED Rx# [id number] Last Released: 10/02/23 Qty/Days Supply: 11/04 Rx Expiration Date: 01/10/24 Refills Remainin OUTPT ATORVASTATIN CALCIUM 40MG TAB (Status = Discontinued) TAKE ONE-HALF TABLET BY MOUTH ONCE DAILY FOR CHOLESTEROL Rx# [id number] Last Released: 07/02/23 Qty/Days Supply: Rx Expiration Date: 11/05/23 Refills Remainin OUTPT ATORVASTATIN CALCIUM 40MG TAB (Status = Active) TAKE ONE-HALF TABLET BY MOUTH ONCE DAILY FOR CHOLESTEROL Rx# [id number] Last Released: 09/12/23 Qty/Days Supply: Rx Expiration Date: 09/11/24 Refills Remainin OUTPT CALCIUM 200MG (CA CITRATE-950MG) TAB (Status = Active) TAKE THREE TABLETS BY MOUTH TWICE DAILY Rx# [id number] Last Released: 07/02/23 Qty/Days Supply: Rx Expiration Date: 02/16/24 Refills Remainin Indication: FOR OSTEOPOROSIS OUTPT CHOLECALCIF 25MCG (D3-1,000UNIT) TAB (Status = Active) TAKE ONE TABLET BY MOUTH ONCE DAILY FOR VITAMIN SUPPLEMENTATION Rx# [id number] Last Released: 08/22/23 Qty/Days Supply: Rx Expiration Date: 04/26/24 Refills Remainin Indication: FOR VITAMIN D DEFICIENCY OUTPT FLUTICAS 250/SALMETEROL 50 INHL DISK 60 (Status = ) INHALE 1 PUFF BY MOUTH TWICE DAILY - RINSE MOUTH AFTER USE REPLACES SYMBICORT (BUDESONIDE/FORMOTEROL) Rx# [id number] Last Released: 10/02/23 Qty/Days Supply: 11/04 Rx Expiration Date: 10/02/23 Refills Remainin OUTPT LEVOTHYROXINE NA (SYNTHROID) 88MCG TAB (Status = Active) TAKE ONE TABLET BY MOUTH EVERY MORNING 30 MINUTES BEFORE BREAKFAST TAKE ON AN EMPTY STOMACH WITH A FULL GLASS OF WATER Rx# [id number] Last Released: 10/02/23 Qty/Days Supply: Rx Expiration Date: 11/05/23 Refills Remainin Indication: FOR THYROID OUTPT LISINOPRIL 30MG TAB (Status = Discontinued) TAKE ONE TABLET BY MOUTH ONCE DAILY TO CONTROL BLOOD PRESSURE NOTE NEW TABLET STRENGTH Rx# [id number] Last Released: 07/02/23 Qty/Days Supply: Rx Expiration Date: 01/10/24 Refills Remainin OUTPT LISINOPRIL 30MG TAB (Status = Active) TAKE ONE TABLET BY MOUTH ONCE DAILY TO CONTROL BLOOD PRESSURE NOTE NEW TABLET STRENGTH Rx# [id number] Last Released: 09/19/23 Qty/Days Supply: Rx Expiration Date: 09/11/24 Refills Remainin OUTPT TIOTROPIUM 2.5MCG/ACTUAT 60D ORAL INHL (Status = Discontinued) INHALE 2 PUFFS BY MOUTH ONCE DAILY THIS REPLACES TIOTROPIUM HANDIHALER CAPSULES Rx# [id number] Last Released: 07/04/23 Qty/Days Supply: Rx Expiration Date: 10/02/23 Refills Remainin OUTPT TIOTROPIUM 2.5MCG/ACTUAT 60D ORAL INHL (Status = Active) INHALE 2 PUFFS BY MOUTH ONCE DAILY THIS REPLACES TIOTROPIUM HANDIHALER CAPSULES Rx# [id number] Last Released: 09/19/23 Qty/Days Supply: Rx Expiration Date: 09/11/24 Refills Remainin OUTPT TRIAMCINOLONE ACETONIDE 0.1% CREAM (Status = Active) APPLY A THIN LAYER TOPICALLY TWICE DAILY FOR CONTACT DERMATITIS Rx# [id number] Last Released: 11/04/22 Qty/Days Supply: Rx Expiration Date: 11/05/23 Refills Remainin Indication: FOR CONTACT DERMATITIS SUPPLIES /lolly/ JEEVAN RILEY MD STAFF PHYSICIAN Signed: 10/23/2023 18:10 JEEVAN RILEY [facility]
--- OUTSIDE RECORDS SUMMARY | 2024-10-11 16:50 | XMS_ITS | Encounter Summary ---
Author Name [facility] Organization [facility] Address [address] [place] [id number] Care Team Providers Care Account Manager Name Role Phone SHERLYN BRADLEY Primary Care Provider [facility] Insurance Providers: All historical and current [...] PART B Apr 05, 2020 PART B [id number] NIKOLECOCO MOCK PATIENT MEDICARE (WNR) MEDICARE (M) PART A Mar 06, 2019 PART A [id number] MIGUELITOCOCO [place] PATIENT Selected Encounter This section includes the information on record at [place] for the Encounter. Date/Time Encounter Type Encounter Description Reason Pro vider Source Nov 18, 2023 12:00 PM Outpatient Encounter COMMUNITY CARE CONSULT IHE Encounter Template Text not used by VA Plan of Treatment: Future Appointments (+ 6 [...] 20 appointments. The data comes from all [place] treatment facilities. Appointment Date/Time Appointment Type Appointme nt Facility Name Dec 30, 2023 03:20 PM AMBULATORY - MEDICINE [facility] Jan 21, 2024 08:30 AM [facility] Mar 12, 2024 08:30 AM [facility] Apr 01, 2024 09:00 AM AMBULATORY - NONE [facility] Lab Results: +/- 30 days of the encounter This section includes the Chemistry and Hematology Lab Results on record with [place] for the patient. Radiology Reports and Pathology Reports are provided separately, in subsequent sections. Lab Results This section contains the Chemistry/Hematology Results that were resulted 30 days before or 30 daysafter the date of the Encounter. Date/Time Source Result Type Result - Unit Interpretation Reference Range Comment Oct 23, 2023 09:48 AM [facility] PROLACTIN Specimen Type: SERUM Comment: PROLACTIN female range:PREMENOPAUS AL 3-27, POSTMENOPAUSAL 2-20 Male range changed from 2-14 to 3-20 on 12/28/12. Ordering Provider: SHERLYN BRADLEY Report Released Date/Time: Sep 11, 2023 08:04 AM Reporting Lab: [facility] [address] [facility] [address] Performing Lab: [facility] [address] [facility] [address] PROLACTIN 8.67 ng/mL 3-20 Oct 23, 2023 09:48 AM [facility] ALPHA SUBUNIT (Q) Specimen Type: [...] analytical performance characteristics have been determined by [employer] It has not been cleared or approved by FDA. This assay has been validated pursuant to the CLIA regulations and is used for clinical purposes. Test performed by [facility] [address] [place] [address] Silk Screen Etcher: Estela Barlow MD,PHD,PATSY Test Reported by [facility], [address] [place] [address] Seamus Joseph M.D., Ph.D., Director of Laboratories , CLIA [id number] TEST PERFORMED AT: , Ordering Provider: JEEVAN RILEY Report Released Date/Time: Oct 23, 2023 09:23 AM Reporting Lab[facility] [place] [facility] [address] [facility] [address] Performing Lab: [facility] [address] [address] ALPHA SUBUNIT (Q) 0.2 ng/mL Oct 23, 2023 09:48 AM [facility] IGF1 PANEL Specimen Type: SERUM Comment: This test was developed and its analytical performance characteristics have been determined by [employer] It has not been cleared or approved by FDA. This assay has been validated pursuant to the CLIA regulations and is used for clinical purposes. TEST PERFORMED AT: , [place] [address] Silk Screen Etcher: Estela Barlow MD,PHD,PATSY Test Reported by [facility] [place], [facility], [address] [place] [address] Seamus Joseph M.D., Ph.D., Director of Laboratories , CLIA [id number] Ordering Provider: JEEVAN RILEY Report Released Date/Time: Oct 23, 2023 09:23 AM Reporting Lab: [facility] [place] [facility] [address] [facility] [address] Performing Lab: [facility] [address] [place] [address] IGF1 168 ng/mL 34-245 IGF Z SCORE, MALE 0.9 -2.0-+2.0 Oct 23, 2023 09:48 AM [facility] PTH INTACT Specimen Type: SERUM No comment entered. Ordering Provider: JEEVAN RILEY Report Released Date/Time: Oct 23, 2023 09:28 AM Reporting Lab[facility] [address] [facility] [address] Performing Lab: [facility] [address] [facility] [address] PTH INTACT 48.9 pg/mL 10-65 Oct 23, 2023 09:48 AM [facility] VITAMIN D (25-OH) Specimen Type: SERUM No comment entered. Ordering Provider: JEEVAN RILEY Report Released Date/Time: Oct 23, 2023 09:28 AM Reporting Lab: [facility] [address] Performing Lab: [facility] [address] [facility] [address] VITAMIN D (25-OH) 46 ng/mL 20-50 Oct 23, 2023 09:48 AM [facility] CALCIUM Specimen Type: SERUM No comment entered. Ordering Provider: JEEVAN RILEY Report Released Date/Time: Oct 23, 2023 09:28 AM Reporting Lab: [facility] [address] [facility] [address] Performing Lab: [facility] [address] [address] CALCIUM 9.5 mg/dL 8.5-10.2 Oct 23, 2023 09:48 AM [facility] BASIC METABOLIC PANEL (fasting) Specimen Type: SERUM No comment entered. Ordering Provider: JEEVAN RILEY Report Released Date/Time: Oct 23, 2023 09:28 AM Reporting Lab: [facility] [address] [facility] [address] Performing Lab: [facility] [address] UREA NITROGEN 21 mg/dL 7-25 GLUCOSE 106 [...] and tobacco- related health factors from the [place] facility where the Encounter took place. Current Smoking Status This section includes the most current smoking, or tobacco-related health factor, from the [place] facility where the Encounter took place. Date/Time Current Smoking Status Comment Facil ity Sep 04, 2023 01:14 PM VA-TOBACCO USER EVERY DAY [place] [facility] [place] [facility] Tobacco Use History This section includes a history of the smoking, or tobacco-related health factors, that were collected on or before the date of the Encounter. The data comes from the [place] facility where the Encounter took place. 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 [facility] [place] [facility] Sep 04, 2023 01:14 PM VA-TOBACCO USE MED NO [facility] [place] [facility] Sep 04, 2023 01:14 PM VA-TOBACCO USE WI 30 MIN OF WAKEUP [place] [facility] [place] [facility] Sep 04, 2023 01:14 PM VA-TOBACCO USER EVERY DAY [facility] [place] [facility] Oct 01, 2022 09:45 AM VA-TOBACCO DOESNT USE WI 30 MIN WAKEUP [facility] [place] [facility] Oct 01, 2022 09:45 AM VA-TOBACCO USE 30 YEARS OR MORE [facility] [place] [facility] Oct 01, 2022 09:45 AM VA-TOBACCO USE ADVICE [facility] [place] [facility] Oct 01, 2022 09:45 AM 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 [facility] [place] [facility] Oct 01, 2022 09:45 AM VA-TOBACCO USE MED NO [facility] [place] [facility] Oct 01, 2022 09:45 AM VA-TOBACCO USER EVERY DAY [facility] [place] [facility] Sep 07, 2021 10:30 AM VA-TOBACCO USE 30 YEARS OR MORE [facility] [place] [facility] Sep 07, 2021 10:30 AM VA-TOBACCO USE ADVICE [facility] [place] [facility] Sep 07, 2021 10:30 AM 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 [facility] [place] [facility] Sep 07, 2021 10:30 AM VA-TOBACCO USE MED NO [facility] [place] [facility] Sep 07, 2021 10:30 AM VA-TOBACCO USE WI 30 MIN OF WAKEUP [facility] [place] [facility] Sep 07, 2021 10:30 AM VA-TOBACCO USER EVERY DAY [facility] [place] [facility] Jun 08, 2020 09:00 AM VA-TOBACCO USE 30 YEARS OR MORE [facility] [place] [facility] Jun 08, 2020 09:00 AM VA-TOBACCO USE ADVICE [facility] [place] [facility] Jun 08, 2020 09:00 AM 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 [facility] [place] [facility] Jun 08, 2020 09:00 AM VA-TOBACCO USE MED NO [facility] [place] [facility] Jun 08, 2020 09:00 AM VA-TOBACCO USE WI 30 MIN OF WAKEUP [facility] [place] [facility] Jun 08, 2020 09:00 AM VA-TOBACCO USER EVERY DAY [facility] [place] [facility] Feb 01, 2019 02:27 PM VA-TOBACCO USE 30 YEARS OR MORE [facility] [place] [facility] Feb 01, 2019 02:27 PM VA-TOBACCO USE ADVICE [facility] [place] [facility] Feb 01, 2019 02:27 PM 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 [facility] [place] [facility] Feb 01, 2019 02:27 PM VA-TOBACCO USE MED NO [facility] [place] [facility] Feb 01, 2019 02:27 PM VA-TOBACCO USE WI 30 MIN OF WAKEUP [facility] Feb 01, 2019 02:27 PM VA-TOBACCO USER EVERY DAY [facility] Apr 02, 2018 02:47 PM CURRENT SMOKER [place] [facility] Apr 02, 2018 02:47 PM V1-PT DECLINES REF TO TOBACCO CESS PRGM [facility] Apr 02, 2018 02:47 PM V1-PT DECLINES TOB ACCO CESSATION MEDS [facility] Apr 02, 2018 02:47 PM V1-PT THINKING ABO UT QUIT TOBACCO USE [facility] Radiology Reports: +/- 30 days [...] the Encounter. The data comes from all [place] treatment facilities. Date/Time Radiology Report Provider Source Nov 18, 2023 02:00 PM OUTSIDE MRI BRAIN W/WO CONTRAST: KINGSTON RENDON [id number] -[id number] Exm Date: NOV 18, 2023@14:00 Req Phys: JEEVAN RILEY Loc: NHM/ENDOCRINE (Req'g Loc) Img Loc: OUTSIDE GENERAL RADIOLOGY Service: Unknown (Case [id number] COMPLETE) OUTSIDE MRI BRAIN W/WO CONTRAST (RAD Detailed) CPT:25876 Reason for Study: benign pituitary neoplasm Clinical History: Report Status: Electronically Filed Date Reported: DEC 01, 2023 Report: Please see report in [facility]. Impression: Please see report in [facility]. Primary Diagnostic Code: VERIFIED BY: / *ELECTRONICALLY FILED* [facility] Encounter Notes: All associated encounter notes This section contains the clinical notes associated to the Encounter. Date/Time Encounter Note(s) Provider Source Nov 18, 2023 12:00 PM NONVA CONSULT: LOCAL TITLE: COMMUNITY CARE-CONSULT RESULT NOTE STANDARD TITLE: NONVA CONSULT DATE OF NOTE: NOV 18, 2023@12:00 ENTRY DATE: DEC 01, 2023@12:55:25 AUTHOR: MARION GALLAGHER MA EXP COSIGNER: URGENCY: STATUS: COMPLETED [facility] - Scanned Document SCANNED DOCUMENT SIGNATURE NOT REQUIRED Electronically Filed: 12/01/2023 by: MARION GALLAGHER COPY AND PRINT ASSOCIATE MARION GALLAGHER [place] [facility]
--- OUTSIDE RECORDS SUMMARY | 2024-10-11 16:50 | XMS_ITS | Encounter Summary ---
Author Name [facility] [place] [facility] [place] Address [address] [place] [id number] Care Team Providers Care [employer] Foreign Language Tutor Name Role Phone SHERLYN BRADLEY Primary Care Provider [facility] Insurance Providers: All historical and current [...] PART B Apr 05, 2020 PART B [id number] COCO FARLEY PATIENT MEDICARE (WNR) MEDICARE (M) PART A Mar 06, 2019 PART A [id number] COCO FARLEY PATIENT Selected Encounter This section includes the information on record at [place] for the Encounter. Date/Time Encounter Type Encounter Description Reason Provider Source Nov 04, 2023 05:58 PM Outpatient Encounter NEUROSURGERY ICD-10-CM D35.2 Benign neoplasm of pituitary gland SUNG LAW [facility] Encounter Template Text not used by [place] Assessments - Encounter Diagnoses This section includes the primary and secondary diagnoses documented for the Encounter. Date/Time Primary/Secondary Diagnosis Diagnosis Name Provider Source Nov 04, 2023 06:11 PM PRIMARY Benign neoplasm of pituitary gland SUNG LAW [facility] Plan of Treatment: Future Appointments (+ 6 months) and Future Tests (+/- 45 days) The Plan of Treatment section includes future care activities for the patient from all [place] [facility]. This section includes future appointments and future orders which are active, pending or scheduled. Future Appointments This section includes appointments that were scheduled to occur 6 months from the date of the Encounter, up to a maximum of 20 appointments. The data comes from all [place] treatment facilities. Appointment Date/Time Appointment Type Appointme nt Facility Name Nov 18, 2023 07:00 AM AMBULATORY - MEDICINE [place] [facility] [place] [facility] Dec 30, 2023 03:20 PM AMBULATORY - MEDICINE [place] [facility] [place] [facility] Jan 21, 2024 08:30 AM AMBULATORY - MEDICINE [place] [facility] [place] [facility] Mar 12, 2024 08:30 AM AMBULATORY - MEDICINE [place] [facility] [facility] Apr 01, 2024 09:00 AM [facility]UL[facility] - NONE [facility] Lab Results: +/- 30 days of the encounter This section includes the Chemistry and Hematology Lab Results on record with [place] for the patient. Radiology Reports and Pathology Reports are provided separately, in subsequent sections. Lab Results This section contains the Chemistry/Hematology Results that were resulted 30 days before or 30 daysafter the date of the Encounter. Date/Time Source Result Type Result - Unit Interpretation Reference Range Comment Oct 23, 2023 09:48 AM [facility] PROLACTIN Specimen Type: SERUM Comment: PROLACTIN female range:PREMENOPAUS AL 3-27, POSTMENOPAUSAL 2-20 Male range changed from 2-14 to 3-20 on 12/28/12. Ordering Provider: SHERLYN BRADLEY Report Released Date/Time: Sep 11, 2023 08:04 AM Reporting Lab: [facility] [place] [facility] [address] [facility] [address] Performing Lab: [facility] [address] [facility] [address] PROLACTIN 8.67 ng/mL 3-Oct 23, 2023 09:48 AM [facility] ALPHA SUBUNIT (Q) Specimen Type: SERUM [...] analytical performance characteristics have been determined by [employer]. It has not been cleared or approved by FDA. This assay has been validated pursuant to the CLIA regulations and is used for clinical purposes. Test performed by [employer] [place] [id number] Fitness Consultant: Estela Barlow MD,PHD,PATSY Test Reported by [facility] [place], [address] [place] [address] Seamus Joseph M.D., Ph.D., Director of Laboratories , CLIA [id number] TEST PERFORMED AT: , Ordering Provider: JEEVAN RILEY Report Released Date/Time: Oct 23, 2023 09:23 AM Reporting Lab: [facility] [address] [facility] [address] Performing Lab: [facility] [address] [address] ALPHA SUBUNIT (Q) 0.2 ng/mL Oct 23, 2023 09:48 AM [facility] IGF1 PANEL Specimen Type: SERUM Comment: This test was developed and its analytical performance characteristics have been determined by [employer]. It has not been cleared or approved by FDA. This assay has been validated pursuant to the CLIA regulations and is used for clinical purposes. TEST PERFORMED AT: , Test performed by [employer] [address] [address] Fitness Consultant: Estela Barlow MD,PHD,PATSY Test Reported by [facility] [place], [address] [place], [place] Seamus Joseph M.D., Ph.D., Director of Laboratories , CLIA [id number] Ordering Provider: JEEVAN RILEY Report Released Date/Time: Oct 23, 2023 09:23 AM Reporting Lab: [facility] [place] [facility] [address] [facility] [address] Performing Lab: [facility] [place] [facility] [address] [address] IGF1 168 ng/mL 34-245 IGF Z SCORE, MALE 0.9 -2.0-+2.0 Oct 23, 2023 09:48 AM [facility] PTH INTACT Specimen Type: SERUM No comment entered. Ordering Provider: JEEVAN RILEY Report Released Date/Time: Oct 23, 2023 09:28 AM Reporting Lab: [facility] [place] [facility] [address] [facility] [address] Performing Lab: [facility] [address] [facility] [address] PTH INTACT 48.9 pg/mL 10-65 Oct 23, 2023 09:48 AM [facility] VITAMIN D (25-OH) Specimen Type: SERUM No comment entered. Ordering Provider: JEEVAN RILEY Report Released Date/Time: Oct 23, 2023 09:28 AM Reporting Lab: [facility] [address] [facility] [address] Performing Lab: [facility] [address] [facility] [address] VITAMIN D (25-OH) 46 ng/mL 20-50 Oct 23, 2023 09:48 AM [facility] CALCIUM Specimen Type: SERUM No comment entered. Ordering Provider: JEEVAN RILEY Report Released Date/Time: Oct 23, 2023 09:28 AM Reporting Lab: [facility] [place] [facility] [address] [facility] [address] Performing Lab: [facility] [address] [address] CALCIUM 9.5 mg/dL 8.5-10.2 Oct 23, 2023 09:48 AM [facility] BASIC METABOLIC PANEL (fasting) Specimen Type: SERUM No comment entered. Ordering Provider: JEEVAN RILEY Report Released Date/Time: Oct 23, 2023 09:28 AM Reporting Lab: [facility] [address] [facility] [address] Performing Lab: [facility] [address] [facility] [address] UREA NITROGEN 21 mg/dL 7-25 GLUCOSE 106 mg/dL H 65-100 SODIUM 138 mmol/L 135-145 POTASSIUM 4.8 mmol/L 3.5-5.0 CHLORIDE 100 mmol/L 100-110 CO2 27 meq/L 20-30 CREATININE, Serum 0.87 mg/dL 0.50-1.40 eGFR(CKD-EP I 2020) >90 mL/min >60 Radiology Reports: +/- 30 days of the [...] the Encounter. The data comes from all [place] treatment facilities. Date/Time Radiology Report Provider Source Nov 18, 2023 02:00 PM OUTSIDE MRI BRAIN W/WO CONTRAST: KINGSTON RENDON [id number] -[id number] M Exm Date: NOV 18, 2023@14:00 Req Phys: JEEVAN RILEY Pat Loc: NHM/ENDOCRINE (Req'g Loc) Img Loc: OUTSIDE GENERAL RADIOLOGY Service: Unknown (Case [id number] COMPLETE) OUTSIDE MRI BRAIN W/WO CONTRAST (RAD Detailed) CPT:34914 Reason for Study: benign pituitary neoplasm Clinical History: Report Status: Electronically Filed Date Reported: DEC 01, 2023 Report: Please see report in [facility]. Impression: Please see report in [facility]. Primary Diagnostic Code: VERIFIED BY: / *ELECTRONICALLY FILED* [facility] Encounter Notes: All associated encounter notes This section contains the clinical notes associated to the Encounter. Date/Time Encounter Note(s) Provider Source Nov 04, 2023 05:58 PM NEUROSURGERY CONSU LT: LOCAL TITLE: NEUROSURGERY E-CONSULT NOTE (WHAV) STANDARD TITLE: NEUROSURGERY CONSULT DATE OF NOTE: NOV 04, 2023@17:58 ENTRY DATE: NOV 04, 2023@17:58:08 AUTHOR: SUNG LAW EXP COSIGNER: URGENCY: STATUS: COMPLETED benign pituitary neoplasm No MRI brain/pituitary images in PACS to review. JVL endocrinology 10/20/2023 note describes benign pituitary neoplasm, osteoporosis, (cnetal) hypothyroidism has some visual field loss, stable.) describes MRI 09/27/2022, enlarged pituitary with cystic region, as well as adjacent hypoenhancing focus on R side of pituitary was seen, which could reflect pituitary adenoma, no mass effect. This is 4x5x4 mm, and there is also an area of heterogeneous T2 signal with enhancement. The posterior pituitary bright spot is not seen. 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 Previous field testing showed no evidence of neurologic field loss. Cannot comment in detail w/o images. Based on discriptions, has isolated hypothyroidism, microadenoma wihtout mass effect or visual field deficits. Would not consider surgical intervention unless he develops mass effect on chiasm with visual field defect &/or medically refractory endocrinological issue. Reccomend monitoring of endocrine and visual status, reimaging if there are any changes. /es/ Sung Law Jr., MD, MSCE, FAANS Chief Neurosurgery, Act. Asst. Chief Surgery Signed: 11/04/2023 18:11 SUNG LAW [facility]
--- OUTSIDE RECORDS SUMMARY | 2024-10-11 16:51 | XMS_ITS ---
Author Name Department [place] Organization [place] Address [address] [place] [address] Care Team Providers Care Pipeman Name Role Phone SHERLYN BRADLEY Primary Care Provider [facility] Insurance Providers: All historical and current [...] PART B Apr 05, 2020 PART B [id number] NIKOLEDEEJAYMary JoCOCONDER PATIENT MEDICARE (WNR) MEDICARE (M) PART A Mar 06, 2019 PART A [id number] MIGUELITOCOCO ANDRIA PATIENT Selected Encounter This section includes the information on record at [place] for the Encounter. Date/Time Encounter Type Encounter Description Reason Pro vider Source March 04, 2024 11:22 AM Outpatient Encounter PRIMARY CARE/MEDICINE IHE Encounter Template Text not used by [place] Plan of Treatment: Future Appointments (+ 6 [...] 20 appointments. The data comes from all [place] treatment facilities. Appointment Date/Time Appointment Type Appointme nt Facility Name Mar 12, 2024 08:30 AM AM[facility]ULATORY [place]INE [place] [facility] Apr 01, 2024 09:00 AM [facility] Jul 22, 2024 08:00 AM AMBULATORY - MEDICINE [facility] Lab Results: +/- 30 days of the encounter This section includes the Chemistry and Hematology Lab Results on record with [place] for the patient. Radiology Reports and Pathology Reports are provided separately, in subsequent sections. Lab Results This section contains the Chemistry/Hematology Results that were resulted 30 days before or 30 daysafter the date of the Encounter. Date/Time Source Result Type Result - Unit Interpretation Reference Range Comment Mar 12, 2024 07:31 AM [facility] LIPID PANEL, NON FASTING Specimen Type: SERUM No comment entered. Ordering Provider: JANET BRADLEY Report Released Date/Time: February 26, 2024 08:16 AM Reporting Lab: [facility] [address] [address] Performing Lab: [facility] [address] [address] CHOLESTEROL 161 mg/dL TRIGLYCERIDE 73 mg/dL 0-150 LDL calculated 75 mg/dL 0-129 CHOL/HDL 2.3 HDL CHOLESTEROL 71 mg/dL H 40-60 Mar 12, 2024 07:31 AM [facility] CBC Specimen Type: BLOOD No comment entered. Ordering Provider: JANET BRADLEY Report Released Date/Time: February 26, 2024 08:16 AM Reporting Lab: [facility] [address] [address] Performing Lab: [facility] [address] WBC 8.45 10*3/uL 4.50-11.00 RBC 5.21 10*6/uL 4.23-5.66 HGB 17.1 g/dL H 12.8-17 HCT 47.8 39.2-50.4 MCV 91.7 fL 82-99 MCHC 35.8 g/dL H 30.8-35.1 PLT 186 10*3/uL 140-360 RDW-CV 12.2 12.0-16.0 MCH 32.8 pg H 26.2-32.6 Mar 12, 2024 07:31 AM [facility] LIVER FUNCTION Specimen Type: SERUM No comment entered. Ordering Provider: JANET BRADLEY Report Released Date/Time: February 26, 2024 08:16 AM Reporting Lab: [address] [address] Performing Lab: [address] [address] PROTEIN,TOTAL 7.1 g/dL 6.0-8.3 ALBUMIN 4.4 g/dL 3.5-5.0 ALKALINE PHOSPHATASE 110 U/L 40-150 AST 48 U/L H 5-34 ALT 29 U/L BILIRUBIN, TOTAL 1.5 mg/dL H 0.2-1.2 BILIRUBIN, DIRECT 0.6 mg/dL H 0-0.5 Mar 12, 2024 07:31 AM [facility] FERRITIN Specimen Type: SERUM No comment entered. Ordering Provider: JANET BRADLEY Report Released Date/Time: Mar 15, 2024 10:26 AM Reporting Lab: [address] [address] Performing Lab: [address] [address] FERRITIN 683 ng/mL H 20-300 Social History: Smoking Status (Most current) and Tobacco Use (All prior to encounter date) This section includes the most current, and the historical, smoking and tobacco- related health factors from the [place] facility where the Encounter took place. Current Smoking Status This section includes the most current smoking, or tobacco-related health factor, from the [place] facility where the Encounter took place. Date/Time Current Smoking Status Comment Dinesh welch Sep 04, 2023 01:14 PM VA-TOBACCO USER EVERY DAY [facility] Tobacco Use History This section includes a history of the smoking, or tobacco-related health factors, that were collected on or before the date of the Encounter. The data comes from the [place] facility where the Encounter took place. 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 [facility] [place] [facility] Sep 04, 2023 01:14 PM VA-TOBACCO USE MED NO [facility] [place] [facility] Sep 04, 2023 01:14 PM VA-TOBACCO USE WI 30 MIN OF WAKEUP [facility] [place] [facility] Sep 04, 2023 01:14 PM VA-TOBACCO USER EVERY DAY [facility] [place] [facility] Oct 01, 2022 09:45 AM VA-TOBACCO DOESNT USE WI 30 MIN WAKEUP [facility] [place] [facility] Oct 01, 2022 09:45 AM VA-TOBACCO USE 30 YEARS OR MORE [facility] [place] [facility] Oct 01, 2022 09:45 AM VA-TOBACCO USE ADVICE [facility] [place] [facility] Oct 01, 2022 09:45 AM VA-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 USE 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 [facility] [place] [facility] Oct 01, 2022 09:45 AM VA-TOBACCO USE MED NO [facility] [place] [facility] Oct 01, 2022 09:45 AM VA-TOBACCO USER EVERY DAY [facility] [place] [facility] Sep 07, 2021 10:30 AM VA-TOBACCO USE 30 YEARS OR MORE [facility] [place] [facility] Sep 07, 2021 10:30 AM VA-TOBACCO USE ADVICE [facility] [place] [facility] Sep 07, 2021 10:30 AM VA-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 USE 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 [facility] [place] [facility] Sep 07, 2021 10:30 AM VA-TOBACCO USE MED NO [facility] [place] [facility] Sep 07, 2021 10:30 AM VA-TOBACCO USE WI 30 MIN OF WAKEUP [facility] [place] [facility] Sep 07, 2021 10:30 AM VA-TOBACCO USER EVERY DAY [facility] [place] [facility] Jun 08, 2020 09:00 AM VA-TOBACCO USE 30 YEARS OR MORE [facility] [place] [facility] Jun 08, 2020 09:00 AM VA-TOBACCO USE ADVICE [facility] [place] [facility] Jun 08, 2020 09:00 AM VA-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 USE 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 [facility] [place] [facility] Jun 08, 2020 09:00 AM VA-TOBACCO USE MED NO [facility] [place] [facility] Jun 08, 2020 09:00 AM VA-TOBACCO USE WI 30 MIN OF WAKEUP [facility] [place] [facility] Jun 08, 2020 09:00 AM VA-TOBACCO USER EVERY DAY [facility] [place] [facility] Feb 01, 2019 02:27 PM VA-TOBACCO USE 30 YEARS OR MORE [facility] [place] [facility] Feb 01, 2019 02:27 PM VA-TOBACCO USE ADVICE [facility] [place] [facility] Feb 01, 2019 02:27 PM VA-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 USE 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 [facility] [place] [facility] Feb 01, 2019 02:27 PM VA-TOBACCO USE MED NO [facility] [place] [facility] Feb 01, 2019 02:27 PM VA-TOBACCO USE WI 30 MIN OF WAKEUP [facility] [place] [facility] Feb 01, 2019 02:27 PM VA-TOBACCO USER EVERY DAY [facility] [place] [facility] Apr 02, 2018 02:47 PM CURRENT SMOKER [facility] [place] [facility] Apr 02, 2018 02:47 PM V1-PT DECLINES REF TO TOBACCO CESS PRGM [facility] [place] [facility] Apr 02, 2018 02:47 PM V1-PT DECLINES TOB ACCO CESSATION MEDS [facility] [place] [facility] Apr 02, 2018 02:47 PM V1-PT THINKING ABO UT QUIT TOBACCO USE [facility] [place] [facility] Radiology Reports: +/- 30 days of the [...] the Encounter. The data comes from all [place] treatment facilities. Date/Time Radiology Report Provider Source Apr 01, 2024 08:[address] THORAX W/O CONT: KINGSTON RENDON [id number] -1955 Ex Date: APR 01, 2024@08:15 Req Phys: SHERLYN BRADLEY Loc: CWM/NO/PACT 7 (Req'g Loc) Img Loc: NHM/CT Service: [facility] , (Case [id number] COMPLETE) CT THORAX W/O CONT (CT Detailed) CPT:03640 Reason for Study: follow up Clinical History: h/o nodules and thoracic aneurysm UREA NITROGEN - NONE FOUND CREATININE-EGFR - NONE FOUND EGFR - NONE FOUND WARNING: METFORMIN-CONTAINING MEDICINES FDA Recommendation: Discontinue metformin at/before CT with IV contrast for eGFR less than 60 mL/min; OR w/liver disease, alcoholism, or heart failure. Re-evaluate eGFR 48 hours after the imaging procedure; may restart metformin if renal function is stable. For patients who do not meet these criteria (e.g. normal eGFR and no concomitant conditions), there is no recommendation, and is per provider discretion. N/A, patient not on metformin Report Status: Verified Date Reported: APR 06, 2024 Date Verified: APR 06, 2024 Commercial Collector E-Sig: Report: CT THORAX W/O CONT HISTORY: follow up COMPARISON: CT of the chest from June 06, 2023. TECHNIQUE: Helical CT of the chest with multiplanar reformats, was performed at the local [place] facility. 1231 images were received by the [facility] National Teleradiology Program (NTP) for interpretation. RADIATION DOSE (mGy*cm): 134 IV CONTRAST: Not administered. FINDINGS: CHEST: Medical devices: None. Lower Neck: Normal. Lymph nodes: No evidence of hilar, mediastinal, or axillary lymphadenopathy on noncontrast CT. 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 This is unchanged from prior CT. Mild atherosclerotic calcification. Normal caliber of the main pulmonary artery. Heart: Normal heart size. Moderate coronary artery calcifications. No pericardial effusion. Other mediastinal structures: Normal. Upper abdomen:Normal. Chest Wall: Normal. Bones: There are degenerative changes in the spine. Airways:There is mild debris/secretions in the in the bilateral main bronchi. Lung parenchyma/pleura: No pleural effusion. No pneumothorax. There is mild atelectasis versus scarring in the lower lungs. There is mild pulmonary emphysema. There is a new 3 mm pulmonary nodule in the right lower lobe (series 8 image 192). There is a 4 mm pulmonary nodule at the left apex which is mildly increased in size when compared to prior CT (series 8 image 53). There is a new 4 mm nodule in the medial right lower lobe upper lobe, possibly reflecting mucous plugging (series 8 image 154). There are multiple additional scattered pulmonary nodules which are similar to prior CT. 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 There are a few new or enlarging pulmonary nodules as above. These are of uncertain etiology. Recommend follow-up with CT of the chest in 6 months. Additional findings as above. READING PHYSICIAN: Junior Rolle MD -[id number] 04/06/2024 14:08 EDT [facility] National Teleradiology Program [phone] (For Medical Practitioner Use Only) Attention Patients / Veterans: If you have questions or concerns about these test results, please contact your ordering provider or primary care team. Primary Diagnostic Code: SIGNIFICANT ABNORMALITY, ATTN NEEDED Secondary Diagnostic Codes: INCIDENTAL LUNG NODULE(NONSCREENING) Primary Interpreting Staff: RADIOLOGY,OUTSIDE SERVICE, Staff Physician / RADIOLOGY,OUTSIDE SERVICE [place] [facility] [place] [facility] Encounter Notes: All associated encounter notes This section contains the clinical notes associated to the Encounter. Date/Time Encounter Note(s) Provider Source March 04, 2024 11:22 AM NURSING NOTE: LOCAL TITLE: NURSING/TELEPHONE STANDARD TITLE: NURSING NOTE DATE OF NOTE: MARCH 04, 2024@11:22 ENTRY DATE: MARCH 04, 2024@11:22:15 AUTHOR: ALONSO MCQUEEN EXP COSIGNER: URGENCY: STATUS: COMPLETED vet was called, HT spoke with vet inform he has an appt with PCP on 03-12-2024@ 0325,also labs have been orderd,vet acknowledge these instructions. /lolly/ Alonso Mcque[facility] [employer] Residential Service Technician MS SQL DEVELOPER,PRIMARY CARE Signed: 03/04/2024 11:24 ALONSO MCQUEEN [facility]
--- OUTSIDE RECORDS SUMMARY | 2024-10-11 16:51 | XMS_ITS ---
Author Name [facility] [place] Organization [facility] [place] Address [address] [place] [address] Care Team Providers Care Founding Partner Name Role Phone SHERLYN BRADLEY Primary [facility] Provider [facility] Insurance Providers: All historical and current Section [...] PART B Apr 05, 2020 PART B [id number] COCO FARLEY PATIENT MEDICARE (WNR) MEDICARE (M) PART A Mar 06, 2019 PART A [id number] COCO FARLEY PATIENT Selected Encounter This section includes the information on record at [place] for the Encounter. Date/Time Encounter Type Encounter Description Reason Pro vider Source Mar 24, 2024 07:24 AM Outpatient Encounter ADMIN PAT ACTIVTIES (MASNONCT) IHE Encounter Template Text not used by [place] Plan of Treatment: Future Appointments (+ 6 [...] Date/Time Appointment Type Appointme nt Facility Name Apr 01, 2024 09:00 AM AMBULATORY - NONE [place] [facility] [place] [facility] Jul 22, 2024 08:00 AM AMBULATORY - MEDICINE [place] [facility] Sep 14, 2024 08:00 AM [facility] Lab Results: +/- 30 days of [...] Range Comment Mar 12, 2024 07:31 AM [facility] LIPID PANEL, NON FASTING Specimen Type: SERUM No comment entered. Ordering Provider: JANET BRADLEY Report Released Date/Time: February 26, 2024 08:16 AM Reporting Lab: [facility] [address] [facility] [address] Performing Lab: [facility] [address] [facility] [address] CHOLESTEROL 161 mg/dL TRIGLYCERIDE 73 mg/dL 0-150 LDL calculated 75 mg/dL 0-129 CHOL/HDL 2.3 HDL CHOLESTEROL 71 mg/dL H 40-60 Mar 12, 2024 07:31 AM [facility] CBC Specimen Type: BLOOD No comment entered. Ordering Provider: JANET BRADLEY Report Released Date/Time: February 26, 2024 08:16 AM Reporting Lab: [facility] [address] [facility] [address] Performing Lab: [facility] [address] WBC 8.45 10*3/uL 4.50-11.00 RBC 5.21 10*6/uL 4.23-5.66 HGB 17.1 g/dL H 12.8-17 HCT 47.8 39.2-50.4 MCV 91.7 fL 82-99 MCHC 35.8 g/dL H 30.8-35.1 PLT 186 10*3/uL 140-360 RDW-CV 12.2 12.0-16.0 MCH 32.8 pg H 26.2-32.6 Mar 12, 2024 07:31 AM [facility] LIVER FUNCTION Specimen Type: SERUM No comment entered. Ordering Provider: JANET BRADLEY Report Released Date/Time: February 26, 2024 08:16 AM Reporting Lab: [address] [address] Performing Lab: [address] [address] PROTEIN,TOTAL 7.1 g/dL 6.0-8.3 ALBUMIN 4.4 g/dL 3.5-5.0 ALKALINE PHOSPHATASE 110 U/L 40-150 AST 48 U/L H 5-34 ALT 29 U/L BILIRUBIN, TOTAL 1.5 mg/dL H 0.2-1.2 BILIRUBIN, DIRECT 0.6 mg/dL H 0-0.5 Mar 12, 2024 07:31 AM [facility] FERRITIN Specimen Type: SERUM No comment entered. Ordering Provider: JANET BRADLEY Report Released Date/Time: Mar 15, 2024 10:26 AM Reporting Lab: [address] [address] Performing Lab: [address] [address] FERRITIN 683 ng/mL H 20-300 Social History: [...] USER EVERY DAY [facility] [place] [facility] Tobacco Use History This section includes a history of the smoking, or tobacco-related health factors, that were collected on or before the date of the Encounter. The data comes from the [place] facility where the Encounter took place. 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 [facility] [place] [facility] Sep 04, 2023 01:14 PM VA-TOBACCO USE MED NO [facility] [place] [facility] Sep 04, 2023 01:14 PM VA-TOBACCO USE [place] 30 MIN OF WAKEUP [facility] [place] [facility] Sep 04, 2023 01:14 PM VA-TOBACCO USER EVERY DAY [facility] [place] [facility] Oct 01, 2022 09:45 AM VA-TOBACCO DOESNT USE WI 30 MIN WAKEUP [place] [facility] [place] [facility] Oct 01, 2022 09:45 AM VA-TOBACCO USE 30 YEARS OR MORE [facility] [place] [facility] Oct 01, 2022 09:45 AM VA-TOBACCO USE ADVICE [facility] [place] [facility] Oct 01, 2022 09:45 AM VA-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 USE 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 [facility] [place] [facility] Oct 01, 2022 09:45 AM VA-TOBACCO USE MED NO [facility] [place] [facility] Oct 01, 2022 09:45 AM VA-TOBACCO USER EVERY DAY [facility] [place] [facility] Sep 07, 2021 10:30 AM VA-TOBACCO USE 30 YEARS OR MORE [facility] [place] [facility] Sep 07, 2021 10:30 AM VA-TOBACCO USE ADVICE [facility] [place] [facility] Sep 07, 2021 10:30 AM VA-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 USE 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 [facility] [place] [facility] Sep 07, 2021 10:30 AM VA-TOBACCO USE MED NO [facility] [place] [facility] Sep 07, 2021 10:30 AM VA-TOBACCO USE [place] 30 MIN OF WAKEUP [facility] [place] [facility] Sep 07, 2021 10:30 AM VA-TOBACCO USER EVERY DAY [facility] [place] [facility] Jun 08, 2020 09:00 AM VA-TOBACCO USE 30 YEARS OR MORE [facility] [place] [facility] Jun 08, 2020 09:00 AM VA-TOBACCO USE ADVICE [facility] [place] [facility] Jun 08, 2020 09:00 AM VA-TOBACCO USE 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 [facility] [place] [facility] Jun 08, 2020 09:00 AM VA-TOBACCO USE MED NO [facility] [place] [facility] Jun 08, 2020 09:00 AM VA-TOBACCO USE [place] 30 MIN OF WAKEUP [facility] [place] [facility] Jun 08, 2020 09:00 AM VA-TOBACCO USER EVERY DAY [facility] [place] [facility] Feb 01, 2019 02:27 PM VA-TOBACCO USE 30 YEARS OR MORE [facility] [place] [facility] Feb 01, 2019 02:27 PM VA-TOBACCO USE ADVICE [facility] [place] [facility] Feb 01, 2019 02:27 PM VA-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 USE 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 [facility] [place] [facility] Feb 01, 2019 02:27 PM VA-TOBACCO USE MED NO [facility] [place] [facility] Feb 01, 2019 02:27 PM VA-TOBACCO USE WI 30 MIN OF WAKEUP [facility] [place] [facility] Feb 01, 2019 02:27 PM VA-TOBACCO USER EVERY DAY [facility] [place] [facility] Apr 02, 2018 02:47 PM CURRENT SMOKER VA C [facility] [place] [facility] Apr 02, 2018 02:47 PM V1-PT DECLINES REF TO TOBACCO CESS PRGM [facility] [place] [facility] Apr 02, 2018 02:47 PM V1-PT DECLINES TOB ACCO CESSATION MEDS [facility] [place] [facility] Apr 02, 2018 02:47 PM V1-PT THINKING ABO UT QUIT TOBACCO USE [facility] [place] [facility] Radiology Reports: +/- 30 days of [...] AM CT THORAX W/O CONT: [place] RENDON [id number] -[id number] Ex Date: APR 01, 2024@08:15 Req Phys: SHERLYN BRADLEY Loc: CWM/NO/PACT 7 (Req'g Loc) Img Loc: NHM/CT [facility] ([id number] COMPLETE) CT THORAX W/O CONT (CT Detailed) CPT:59407 Reason for Study: follow up Clinical History: [...] 06, 2024 Date Verified: APR 06, 2024 Cashier Office E-Sig: Report: CT THORAX W/O CONT HISTORY: follow up COMPARISON: CT of the chest from June 06, 2023. TECHNIQUE: Helical CT of the chest with multiplanar reformats, was performed at the local [place] facility. 1231 images were received by the [...] as above. READING PHYSICIAN: Junior Rolle MD -[id number] 04/06/2024 14:08 EDT [facility] National Teleradiology Program [phone] (For Medical Practitioner Use Only) Attention Patients / Veterans: If you have questions or concerns about these test results, please contact your ordering provider or primary care team. Primary Diagnostic Code: SIGNIFICANT ABNORMALITY, ATTN NEEDED Secondary Diagnostic Codes: INCIDENTAL LUNG NODULE(NONSCREENING) Primary Interpreting Staff: RADIOLOGY,OUTSIDE SERVICE, Staff Physician / RADIOLOGY,OUTSIDE SERVICE [facility] Encounter Notes: All associated encounter notes This section contains the clinical notes associated to the Encounter. Date/Time Encounter Note(s) Provider Source Mar 24, 2024 07:24 AM ADMINISTRATIVE NOT E: LOCAL TITLE: CCC: SCHEDULING ADMINISTRATION STANDARD TITLE: ADMINISTRATIVE NOTE DATE OF NOTE: MAR 24, 2024@07:24 ENTRY DATE: MAR 24, 2024@07:24:17 AUTHOR: DORETHA GEE COSIGNER: URGENCY: STATUS: COMPLETED Informed /Message to provider Verify Patient Demographics Successfully verified patient demographics Other/General comments: the is returning call & would like a call back for lab review /es/ DORETHA QUICK Signed: 03/24/2024 07:25 D[facility]ETHA GEE [facility]
--- OUTSIDE RECORDS SUMMARY | 2024-10-11 16:51 | XMS_ITS | Encounter Summary ---
Author Name [facility] [place] Organization [place] Address [address] [place] [address] Care Team Providers Care Program Strategist Name Role Phone SHERLYN BRADLEY Primary Care Provider [facility] Insurance Providers: All historical and current [...] PART B Apr 05, 2020 PART B [id number] NIKOLECOCO MOCK PATIENT MEDICARE (WNR) MEDICARE (M) PART A Mar 06, 2019 PART A [id number] NIKOLEDEEJAYMary JoCOCO ANDRIA PATIENT Selected Encounter This section includes the information on record at [place] for the Encounter. Date/Time Encounter Type Encounter Description Reason Pro vider Source Dec 30, 2023 12:00 PM Outpatient Encounter COMMUNITY CARE [...] 20 appointments. The data comes from all [place] treatment facilities. Appointment Date/Time Appointment Type Appointme nt Facility Name Jan 21, 2024 08:30 AM AM[place]ULATORY [place]ICINE [place] [facility] Mar 12, 2024 08:30 AM AMBULATORY - MEDICINE [place] [facility] [facility] Apr 01, 2024 09:00 AM AMBUL[place]ORY - NONE [place] [facility] Lab Results: +/- 30 days of the encounter This section includes the Chemistry and Hematology Lab Results on record with [place] for the patient. Radiology Reports and Pathology Reports are provided separately, in subsequent sections. Lab Results This section contains the Chemistry/Hematology Results that were resulted 30 days before or 30 daysafter the date of the Encounter. Date/Time Source Result Type Result - Unit Interpretation Reference Range Comment Jan 21, 2024 09:04 AM [facility] THYROID T4 FREE(FT4) (WROX) Specimen Type: SERUM Comment: Slightly hemolyzed. Some results may be affected. Ordering Provider: JEEVAN RILEY Report Released Date/Time: Dec 23, 2023 02:52 PM Reporting Lab: [facility] [place] [facility] [address] [facility] [address] Performing Lab: [facility] [place] [facility] [address] [facility] [address] THYROID T4 FREE(FT4) (WROX) 1.24 ng/dL 0.6-1.6 Jan 21, 2024 09:04 AM [facility]ITAL[facility] TSH Specimen Type: SERUM No comment entered. Ordering Provider: JEEVAN RILEY Report Released Date/Time: Dec 23, 2023 02:52 PM Reporting Lab: [facility] [place] [facility] [address] [facility] [address] Performing Lab: [facility]ITALRW[facility] [address] [facility] [address] TSH 0.55 u[IU]/mL 0.35-5.00 Jan 21, 2024 09:04 AM [facility] MICROALBUMIN CREATININE RATIO PANEL Specimen Type: URINE No comment entered. Ordering Provider: JEEVAN RILEY Report Released Date/Time: Jan 21, 2024 08:56 AM Reporting Lab: [facility] [address] [facility] [address] Performing Lab: [facility] [address] [facility] [address] MICROALBUMIN/C REATININE RATIO 15.6 mg/g 0-29.9 MICROALBUMIN,Q UANTITATIVE 1.8 mg/dL RR UNAVAIL CREATININE URINE 115.12 mg/dL Jan 21, 2024 09:04 AM [facility] HEMOGLOBIN A1C PANEL Specimen Type: BLOOD Comment: Values obtained from A1C measurements can vary. For atypical A1C assays, a reported value of 7.0 could actually be between 6.72 and 7.28 if measured by a reference method. A reported value of 9.0 could actually be between 8.73 and 9.27. Ref: http://www.ngs p.org/CAPdata. asp Ordering Provider: JEEVAN RILEY Report Released Date/Time: Jan 21, 2024 08:56 AM Reporting Lab: [facility] [address] [facility] [address] Performing Lab: [facility] [address] [facility] [address] HEMOGLOBIN A1C 5.3 4.0-5.6 Jan 21, 2024 09:04 AM [facility] BASIC METABOLIC PANEL (fasting) Specimen Type: SERUM No comment entered. Ordering Provider: JEEVAN RILEY Report Released Date/Time: Jan 21, 2024 08:56 AM Reporting Lab: [facility] [address] [facility] [address] Performing Lab: [facility] [address] [facility] [address] UREA NITROGEN 16 mg/dL 7-25 GLUCOSE 86 mg/dL 65-100 SODIUM 133 mmol/L L 135-145 POTASSIUM 4.7 mmol/L 3.5-5.0 CHLORIDE 96 mmol/L L 100-110 CO2 23 meq/L 20-30 CREATININE, Serum 0.85 mg/dL 0.50-1.40 eGFR(CKD-EPI 2020) >90 mL/min >60 Social History: Smoking Status (Most current) and Tobacco Use (All prior to encounter date) This section includes the most current, and the historical, smoking and tobacco- related health factors from the [place] facility where the Encounter took place. Current Smoking Status This section includes the most current smoking, or tobacco-related health factor, from the [place] facility where the Encounter took place. Date/Time Current Smoking Status Comment Facil ity Sep 04, 2023 01:14 PM VA-TOBACCO USER EVERY DAY [place] [facility] Tobacco Use History This section includes a history of the smoking, or tobacco-related health factors, that were collected on or before the date of the Encounter. The data comes from the [place] facility where the Encounter took place. Date/Time Smoking Status/Tobacco Use Comment F acility Sep 04, 2023 01:14 PM VA-TOBACCO USE ADVICE [facility] [place] [facility] Sep 04, 2023 01:14 PM VA-TOBACCO USE FAMILY CONSUMER SCIENTIST NO [facility] [place] [facility] Sep 04, 2023 01:14 PM VA-TOBACCO USE MED NO [facility] [place] [facility] Sep 04, 2023 01:14 PM VA-TOBACCO USE [place] 30 MIN OF WAKEUP [facility] [place] [facility] Sep 04, 2023 01:14 PM VA-TOBACCO USER EVERY DAY [facility] [place] [facility] Oct 01, 2022 09:45 AM VA-TOBACCO DOESNT USE WI 30 MIN WAKEUP [facility] [place] [facility] Oct 01, 2022 09:45 AM VA-TOBACCO USE 30 YEARS OR MORE [facility] [place] [facility] Oct 01, 2022 09:45 AM VA-TOBACCO USE ADVICE [facility] [place] [facility] Oct 01, 2022 09:45 AM VA-TOBACCO USE FAMILY CONSUMER SCIENTIST NO [facility] [place] [facility] Oct 01, 2022 09:45 AM VA-TOBACCO USE MED NO [facility] [place] [facility] Oct 01, 2022 09:45 AM VA-TOBACCO USER EVERY DAY [facility] [place] [facility] Sep 07, 2021 10:30 AM VA-TOBACCO USE 30 YEARS OR MORE [facility] [place] [facility] Sep 07, 2021 10:30 AM VA-TOBACCO USE ADVICE [facility] [place] [facility] Sep 07, 2021 10:30 AM VA-TOBACCO USE FAMILY CONSUMER SCIENTIST NO [facility] [place] [facility] Sep 07, 2021 10:30 AM VA-TOBACCO USE MED NO [facility] [place] [facility] Sep 07, 2021 10:30 AM VA-TOBACCO USE [place] 30 MIN OF WAKEUP [facility] [place] [facility] Sep 07, 2021 10:30 AM VA-TOBACCO USER EVERY DAY [facility] [place] [facility] Jun 08, 2020 09:00 AM VA-TOBACCO USE 30 YEARS OR MORE [facility] [place] [facility] Jun 08, 2020 09:00 AM VA-TOBACCO USE ADVICE [facility] [place] [facility] Jun 08, 2020 09:00 AM VA-TOBACCO USE FAMILY CONSUMER SCIENTIST NO [facility] [place] [facility] Jun 08, 2020 09:00 AM VA-TOBACCO USE MED NO [facility] [place] [facility] Jun 08, 2020 09:00 AM VA-TOBACCO USE [place] 30 MIN OF WAKEUP [facility] [place] [facility] Jun 08, 2020 09:00 AM VA-TOBACCO USER EVERY DAY [facility] [place] [facility] Feb 01, 2019 02:27 PM VA-TOBACCO USE 30 YEARS OR MORE [facility] [place] [facility] Feb 01, 2019 02:27 PM VA-TOBACCO USE ADVICE [facility] [place] [facility] Feb 01, 2019 02:27 PM VA-TOBACCO USE FAMILY CONSUMER SCIENTIST NO [facility] [place] [facility] Feb 01, 2019 02:27 PM VA-TOBACCO USE MED NO [facility] [place] [facility] Feb 01, 2019 02:27 PM VA-TOBACCO USE [place] 30 MIN OF WAKEUP [facility] [place] [facility] Feb 01, 2019 02:27 PM VA-TOBACCO USER EVERY DAY [facility] [place] [facility] Apr 02, 2018 02:47 PM CURRENT SMOKER [facility] C [facility] [place] [facility] Apr 02, 2018 02:47 PM V1-PT DECLINES REF TO TOBACCO CESS PRGM [facility] Apr 02, 2018 02:47 PM V1-PT DECLINES TOB ACCO CESSATION MEDS [facility] Apr 02, 2018 02:47 PM V1-PT THINKING ABO UT QUIT TOBACCO USE [facility] Encounter Notes: All associated encounter notes This section contains the clinical notes associated to the Encounter. Date/Time Encounter Note(s) Provider Source Dec 30, 2023 12:00 PM NONVA CONSULT: LOCAL TITLE: COMMUNITY CARE-CONSULT RESULT NOTE STANDARD TITLE: NONVA CONSULT DATE OF NOTE: DEC 30, 2023@12:00 ENTRY DATE: JAN 05, 2024@14:42:03 AUTHOR: TOM RAMON EXP COSIGNER: URGENCY: STATUS: COMPLETED VistA Imaging - Scanned Document SCANNED DOCUMENT SIGNATURE NOT REQUIRED Electronically Filed: 01/05/2024 by: TOM HUFFMAN [facility]
--- OUTSIDE RECORDS SUMMARY | 2024-10-11 16:51 | XMS_ITS | Encounter Summary ---
Author Name [facility] of Veter[facility] ([place]) Organization [facility] of [facility] [place] Address [address] [place] [address] Care Team Providers Care Laboratory Technical Specialist Name Role Phone SHERLYN LENTZ Primary Care Provider [facility] Insurance Providers: All historical and current Section [...] PART B Apr 05, 2020 PART B [id number] COCO FARLEY PATIENT MEDICARE (WNR) MEDICARE (M) PART A Mar 06, 2019 PART A [id number] COCO FARLEY PATIENT Selected Encounter This section includes the information on record at ME for the Encounter. Date/Time Encounter Type Encounter Description Reason Provider Source Jul 13, 2024 08:57 AM Outpatient Encounter TELEPHONE/MEDICIN E ICD-10-CM E87.1 Hypo-osmolality and hyponatremia JEEVAN RILEY Nathaniel Encounter Template Text not used by ME Assessments - Encounter Diagnoses This section includes the primary and secondary diagnoses documented for the Encounter. Date/Time Primary/Secondary Diagnosis Diagnosis Name Provider Source Jul 13, 2024 08:57 AM PRIMARY Hypo-osmolality and hyponatremia JEEVAN RILEY [facility] Plan of Treatment: Future Appointments (+ 6 months) and Future Tests (+/- 45 days) The Plan of Treatment section includes future care activities for the [facility] This section includes future appointments and future orders which are active, pending or scheduled. Future Appointments This section includes appointments that were scheduled to occur 6 months from the date of the Encounter, up to a maximum of 20 appointments. The data comes from all [place] treatment facilities. Appointment Date/Time Appointment Type Appointme nt Facility Name Jul 22, 2024 08:00 AM AMBULATORY - MEDICINE [facility] Sep 14, 2024 08:00 AM AMBULATORY - MEDICINE [facility] Oct 15, 2024 08:30 AM AMBULATORY - NONE [facility] Lab Results: +/- 30 days of the encounter This section includes the Chemistry and Hematology Lab Results on record with ME for the patient. Radiology Reports and Pathology Reports are provided separately, in subsequent sections. Lab Results This section contains the Chemistry/Hematology Results that were resulted 30 days before or 30 daysafter the date of the Encounter. Date/Time Source Result Type Result - Unit Interpretation Reference Range Comment Jul 14, 2024 09:10 AM [facility] COPEPTIN Specimen Type: SERUM Comment: REFERENCE RANGE: <= 13.7 pmol/L This test was developed and its analytical performance characteristics have been determined by [employer]. It has not been cleared or approved by FDA. This assay has been validated pursuant to the CLIA regulations and is used for clinical purposes. Test performed by [employer] [id number] [place] [address] Shipboard Intelligence Analyst: Estela Barlow MD,PHD,PATSY Test Reported by Saleem Mcdowell, [employer] [place], [address] [place] [address] Seamus Joseph M.D., Ph.D., Director of Laboratories , CLIA [id number] TEST PERFORMED AT: , Ordering Provider: JEEVAN RILEY Report Released Date/Time: Jul 13, 2024 09:00 AM Reporting Lab: [facility] [place] [facility] [address] [facility] [address] Performing Lab: [facility] [place] [facility] [address] [address] COPEPTIN 7.3 SEE BELOW Jul 14, 2024 09:10 AM [facility] [place] [facility] OSMOLALITY (SERUM) Specimen Type: SERUM Comment: Manually entered by: RTO Ordering Provider: JEEVAN RILEY Report Released Date/Time: Jul 13, 2024 09:00 AM Reporting [facility]: [facility] [place] [facility] [address] [facility] [address] Performing Lab: [facility] [place] [facility] [address] [facility] [address] OSMOLALITY (SERUM) [phone] Jul 14, 2024 09:10 AM [facility] OSMOLALITY (URINE) Specimen Type: URINE Comment: Manually entered by: RTO Ordering Provider: JEEVAN RILEY Report Released Date/Time: Jul 13, 2024 09:00 AM Reporting Lab: [facility] [place] [facility] [address] [facility] [address] Performing Lab: [facility] [place] [facility] [address] [facility] [address] OSMOLALITY (URINE) [phone] Jul 14, 2024 09:10 AM [facility] SODIUM RANDOM URINE Specimen Type: URINE No comment entered. Ordering Provider: JEEVAN RILEY Report Released Date/Time: Jul 13, 2024 09:00 AM Reporting Lab: [facility] [place] [facility] [address] [facility] [address] Performing Lab: [facility] [place] [facility] [address] [facility] [address] SODIUM, URINE 53 mmol/L 20-400 Jul 14, 2024 09:10 AM [facility] [place] [facility] BASIC METABOLIC PANEL (non-fasting) Specimen Type: SERUM No comment entered. Ordering Provider: JEEVAN RILEY Report Released Date/Time: Jul 13, 2024 09:00 AM Reporting Lab: [facility] [place] [facility] [address] [facility] [address] Performing Lab: [facility] [place] [facility] [address] [facility] [address] UREA NITROGEN 15 mg/dL 7-25 GLUCOSE 95 mg/dL 65-100 SODIUM 128 mmol/L L 135-145 POTASSIUM 4.9 mmol/L 3.5-5.0 CHLORIDE 88 mmol/L L 100-110 CO2 24 meq/L 20-30 CREATININE, Serum 0.91 mg/dL 0.50-1.40 eGFR(CKD-EPI 2020) 90 mL/min >60 Jul 12, 2024 01:01 PM [facility] THYROID T4 FREE(FT4) (WROX) Specimen Type: SERUM No comment entered. Ordering Provider: JEEVAN RILEY Report Released Date/Time: Jul 09, 2024 10:34 AM Reporting Lab: [facility] [address] [facility] [address] Performing Lab: [facility] [address] [facility] [address] THYROID T4 FREE(FT4) (WROX) 1.38 ng/dL 0.6-1.6 Jul 12, 2024 01:01 PM [facility] TSH Specimen Type: SERUM No comment entered. Ordering Provider: JEEVAN RILEY Report Released Date/Time: Jul 09, 2024 10:34 AM Reporting Lab: [facility] [address] [facility] [address] Performing Lab: [facility] [address] [facility] [address] TSH 1.37 u[IU]/mL 0.35-5.00 Jul 12, 2024 01:01 PM [facility] CALCIUM Specimen Type: SERUM No comment entered. Ordering Provider: JEEVAN RILEY Report Released Date/Time: Jul 09, 2024 10:34 AM Reporting Lab: [facility] [address] [facility] [address] Performing Lab: [facility] [address] [address] CALCIUM 10.0 mg/dL 8.5-10.2 Jul 12, 2024 01:01 PM [facility] VITAMIN D (25-OH) Specimen Type: SERUM No comment entered. Ordering Provider: JEEVAN RILEY Report Released Date/Time: Jul 09, 2024 10:34 AM Reporting Lab: [address] [address] Performing Lab: [address] [address] VITAMIN D (25-OH) 44 ng/mL 20-50 Jul 12, 2024 01:01 PM [facility] BASIC METABOLIC PANEL (non-fasting) Specimen Type: SERUM No comment entered. Ordering Provider: JEEVAN RILEY Report Released Date/Time: Jul 09, 2024 10:50 AM Reporting Lab: [address] [address] Performing Lab: [address] [address] UREA NITROGEN 13 mg/dL 7-25 GLUCOSE 78 mg/dL 65-100 SODIUM 126 mmol/L L 135-145 POTASSIUM 4.7 mmol/L 3.5-5.0 CHLORIDE 87 mmol/L L 100-110 CO2 27 meq/L 20-30 CREATININE, Serum 0.81 mg/dL 0.50-1.40 eGFR(CKD-EPI 2020) >90 mL/min >60 Social History: Smoking Status (Most current) and Tobacco Use (All prior to encounter date) This section includes the most current, and the historical, smoking and tobacco- related health factors from the [place] facility where the Encounter took place. Current Smoking Status This section includes the most current smoking, or tobacco-related health factor, from the ME facility where the Encounter took place. Date/Time Current Smoking Status Comment Facil ity Sep 04, 2023 01:14 PM VA-TOBACCO USER EVERY DAY [facility] Tobacco Use History This section includes a history of the smoking, or tobacco-related health factors, that were collected on or before the date of the Encounter. The data comes from the [place] facility where the Encounter took place. Date/Time Smoking Status/Tobacco Use Comment F acility Sep 04, 2023 01:14 PM VA-TOBACCO USE ADVICE [facility] [place] [facility] Sep 04, 2023 01:14 PM VA-TOBACCO USE APPRAISER PERSONAL PROPERTY NO [facility] [place] [facility] Sep 04, 2023 01:14 PM VA-TOBACCO USE MED NO [facility] [place] [facility] Sep 04, 2023 01:14 PM VA-TOBACCO USE WI 30 MIN OF WAKEUP [facility] [place] [facility] Sep 04, 2023 01:14 PM VA-TOBACCO USER EVERY DAY [facility] [place] [facility] Oct 01, 2022 09:45 AM VA-TOBACCO DOESNT USE WI 30 MIN WAKEUP [facility] [place] [facility] Oct 01, 2022 09:45 AM VA-TOBACCO USE 30 YEARS OR MORE [facility] [place] [facility] Oct 01, 2022 09:45 AM VA-TOBACCO USE ADVICE [facility] [place] [facility] Oct 01, 2022 09:45 AM VA-TOBACCO USE APPRAISER PERSONAL PROPERTY NO [facility] [place] [facility] Oct 01, 2022 09:45 AM VA-TOBACCO USE MED NO [facility] [place] [facility] Oct 01, 2022 09:45 AM VA-TOBACCO USER EVERY DAY [facility] [place] [facility] Sep 07, 2021 10:30 AM VA-TOBACCO USE 30 YEARS OR MORE [facility] [place] [facility] Sep 07, 2021 10:30 AM VA-TOBACCO USE ADVICE [facility] [place] [facility] Sep 07, 2021 10:30 AM VA-TOBACCO USE APPRAISER PERSONAL PROPERTY NO [facility] [place] [facility] Sep 07, 2021 10:30 AM VA-TOBACCO USE MED NO [facility] [place] [facility] Sep 07, 2021 10:30 AM VA-TOBACCO USE WI 30 MIN OF WAKEUP [facility] [place] [facility] Sep 07, 2021 10:30 AM VA-TOBACCO USER EVERY DAY [facility] [place] [facility] Jun 08, 2020 09:00 AM VA-TOBACCO USE 30 YEARS OR MORE [facility] [place] [facility] Jun 08, 2020 09:00 AM VA-TOBACCO USE ADVICE [facility] [place] [facility] Jun 08, 2020 09:00 AM VA-TOBACCO USE APPRAISER PERSONAL PROPERTY NO [facility] [place] [facility] Jun 08, 2020 09:00 AM VA-TOBACCO USE MED NO [facility] [place] [facility] Jun 08, 2020 09:00 AM VA-TOBACCO USE WI 30 MIN OF WAKEUP [facility] [place] [facility] Jun 08, 2020 09:00 AM VA-TOBACCO USER EVERY DAY [facility] [place] [facility] Feb 01, 2019 02:27 PM VA-TOBACCO USE 30 YEARS OR MORE [facility] [place] [facility] Feb 01, 2019 02:27 PM VA-TOBACCO USE ADVICE [facility] [place] [facility] Feb 01, 2019 02:27 PM VA-TOBACCO USE APPRAISER PERSONAL PROPERTY NO [facility] [place] [facility] Feb 01, 2019 02:27 PM VA-TOBACCO USE MED NO [facility] [place] [facility] Feb 01, 2019 02:27 PM VA-TOBACCO USE WI 30 MIN OF WAKEUP [facility] [place] [facility] Feb 01, 2019 02:27 PM VA-TOBACCO USER EVERY DAY [facility] [place] [facility] Apr 02, 2018 02:47 PM CURRENT SMOKER [facility] [place] [facility] Apr 02, 2018 02:47 PM V1-PT DECLINES REF TO TOBACCO CESS PRGM [facility] [place] [facility] Apr 02, 2018 02:47 PM V1-PT DECLINES TOB ACCO CESSATION MEDS [facility] [place] [facility] Apr 02, 2018 02:47 PM V1-PT THINKING ABO UT QUIT TOBACCO USE [facility] [place] [facility] Encounter Notes: All associated encounter notes This section contains the clinical notes associated to the Encounter. Date/Time Encounter Note(s) Provider Source Jul 13, 2024 09:05 AM ADDENDUM: LOCAL TITLE: Addendum STANDARD TITLE: ADDENDUM DATE OF NOTE: JUL 13, 2024@09:05:22 ENTRY DATE: JUL 13, 2024@09:05:23 AUTHOR: JEEVAN RILEY EXP COSIGNER: URGENCY: STATUS: COMPLETED Alerting PCP /galina RILEY MD STAFF PHYSICIAN Signed: 07/13/2024 09:05 Receipt Acknowledged By: 07/13/2024 09:20 /lolly/ Sherlyn Lentz DNP, TICKET MANAGER-, CNL Primary Care Nurse Practitioner --- Original Document --- 07/13/24 NOTE: Hyponatremia Advised of all recent labs. States not taking a high amount of water. He agrees to get blood and urine today for: BMP, serum osmoles, urine osmoles, copeptin, urine sodium. Confirmed that he is not on HCTZ. This is a new finding, and it might be that a repeat will not show hyponatremia. 5 min telephone encounter. /galina RILEY MD STAFF PHYSICIAN Signed: 07/13/2024 09:05 JEEVAN RILEY [facility] [place] [facility] Jul 13, 2024 08:57 AM PHYSICIAN NOTE: LOCAL TITLE: NOTE STANDARD TITLE: PHYSICIAN NOTE DATE OF NOTE: JUL 13, 2024@08:57 ENTRY DATE: JUL 13, 2024@08:57:43 AUTHOR: JEEVAN RILEY EXP COSIGNER: URGENCY: STATUS: COMPLETED NOTE Has ADDENDA Hyponatremia Advised of all recent labs. States not taking a high amount of water. He agrees to get blood and urine today for: BMP, serum osmoles, urine osmoles, copeptin, urine sodium. Confirmed that he is not on HCTZ. This is a new finding, and it might be that a repeat will not show hyponatremia. 5 min telephone encounter. /galina RILEY MD STAFF PHYSICIAN Signed: 07/13/2024 09:05 07/13/2024 ADDENDUM STATUS: COMPLETED Alerting PCP /galnia RILEY MD STAFF PHYSICIAN Signed: 07/13/2024 09:05 Receipt Acknowledged By: * AWAITING SIGNATURE * SHERLYN LENTZ [facility]
--- OUTSIDE RECORDS SUMMARY | 2024-10-11 16:51 | XMS_ITS ---
Author Name [facility] [place] [place] Organization [place] Address [address] [place] [id number] Care Team Providers Care Keypunch Operators Supervisor Name Role Phone ARTIE LENTZ Primary [facility] Provider [facility] Insurance Providers: All historical and current Section [...] PART B Apr 05, 2020 PART B [id number] [employer] MOCK PATIENT MEDICARE (WNR) MEDICARE (M) PART A Mar 06, 2019 PART A [id number] COCO FARLEY PATIENT Selected Encounter This section includes the information on record at [place] for the Encounter. Date/Time Encounter Type Encounter Description Reason Pro vider Source Dec 04, 2023 12:48 PM Outpatient Encounter ADMIN PAT ACTIVTIES (MASNONCT) IHE Encounter Template Text not used by [place] Plan of Treatment: Future Appointments (+ 6 [...] 30, 2023 03:20 PM AMBULATORY - MEDICINE [facility] [place] [facility] Jan 21, 2024 08:30 AM AMBULATORY - MEDICINE [facility] [place] [facility] Mar 12, 2024 08:30 AM AMBULATORY - MEDICINE [facility] [place] [facility] Apr 01, 2024 09:00 AM AMBULATORY - NONE [facility] Social History: Smoking Status (Most current) and [...] VA-TOBACCO USER EVERY DAY [facility] Tobacco Use History This section includes a history of the smoking, or tobacco-related health factors, that were collected on or before the date of the Encounter. The data comes from the [place] facility where the Encounter took place. 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 [facility] [place] [facility] Sep 04, 2023 01:14 PM VA-TOBACCO USE MED NO [facility] [place] [facility] Sep 04, 2023 01:14 PM VA-TOBACCO USE WI 30 MIN OF WAKEUP [facility] [place] [facility] Sep 04, 2023 01:14 PM VA-TOBACCO USER EVERY DAY [facility] [place] [facility] Oct 01, 2022 09:45 AM VA-TOBACCO DOESNT USE WI 30 MIN WAKEUP [place] [facility] [place] [facility] Oct 01, 2022 09:45 AM VA-TOBACCO USE 30 YEARS OR MORE [facility] [place] [facility] Oct 01, 2022 09:45 AM VA-TOBACCO USE ADVICE [facility] [place] [facility] Oct 01, 2022 09:45 AM VA-TOBACCO USE DELIVERY 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 NO [facility] [place] [facility] Oct 01, 2022 09:45 AM VA-TOBACCO USE MED NO [facility] [place] [facility] Oct 01, 2022 09:45 AM VA-TOBACCO USER EVERY DAY [facility] [place] [facility] Sep 07, 2021 10:30 AM VA-TOBACCO USE 30 YEARS OR MORE [facility] [place] [facility] Sep 07, 2021 10:30 AM VA-TOBACCO USE ADVICE [facility] [place] [facility] Sep 07, 2021 10:30 AM VA-TOBACCO USE DELIVERY CREW MEMBER NO [facility] [place] [facility] Sep 07, 2021 10:30 AM VA-TOBACCO USE MED NO [facility] [place] [facility] Sep 07, 2021 10:30 AM VA-TOBACCO USE WI 30 MIN OF WAKEUP [place] [facility] [place] [facility] Sep 07, 2021 10:30 AM VA-TOBACCO USER EVERY DAY [place] [facility] [place] [facility] Jun 08, 2020 09:00 AM VA-TOBACCO USE 30 YEARS OR MORE [facility] [place] [facility] Jun 08, 2020 09:00 AM VA-TOBACCO USE ADVICE [facility] [place] [facility] Jun 08, 2020 09:00 AM VA-TOBACCO USE DELIVERY 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 MEMBER NO [facility] [place] [facility] Jun 08, 2020 09:00 AM VA-TOBACCO USE MED NO [facility] [place] [facility] Jun 08, 2020 09:00 AM VA-TOBACCO USE WI 30 MIN OF WAKEUP [facility] [place] [facility] Jun 08, 2020 09:00 AM VA-TOBACCO USER EVERY DAY [facility] [place] [facility] Feb 01, 2019 02:27 PM VA-TOBACCO USE 30 YEARS OR MORE [facility] [place] [facility] Feb 01, 2019 02:27 PM VA-TOBACCO USE ADVICE [facility] [place] [facility] Feb 01, 2019 02:27 PM VA-TOBACCO USE DELIVERY CREW MEMBER NO [place] [facility] Feb 01, 2019 02:27 PM VA-TOBACCO USE MED NO [place] [facility] Feb 01, 2019 02:27 PM VA-TOBACCO USE [place] 30 MIN OF WAKEUP [facility] Feb 01, 2019 02:27 PM VA-TOBACCO USER EVERY DAY [place] [facility] Apr 02, 2018 02:47 PM CUR[facility]MOKER [facility] Apr 02, 2018 02:47 PM V1-PT DECLINES REF TO TOBACCO CESS PRGM [place] [facility] Apr 02, 2018 02:47 PM V1-PT DECLINES TOB ACCO CESSATION MEDS [facility] Apr 02, 2018 02:47 PM V1-PT THINKING ABO UT QUIT [facility] Radiology Reports: +/- 30 days [...] OUTSIDE MRI BRAIN W/WO CONTRAST: [place] RENDON [id number] -1955 Ex Date: NOV 18, 2023@14:00 Req Phys: JEEVAN RILEY Loc: NHM/ENDOCRINE (Req'g Loc) Img Loc: OUTSIDE GENERAL RADIOLOGY Service: Unknown (Case [id number] COMPLETE) OUTSIDE MRI BRAIN W/WO CONTRAST (RAD Detailed) CPT:62482 Reason for Study: benign pituitary neoplasm Clinical History: Report Status: Electronically Filed Date Reported: DEC 01, 2023 Report: Please see report in [facility]. Impression: Please see report in [facility]. Primary Diagnostic Code: VERIFIED BY: / *ELECTRONICALLY FILED* [facility] Encounter Notes: All associated encounter notes This section contains the clinical notes associated to the Encounter. Date/Time Encounter Note(s) Provider Source Dec 04, 2023 12:48 PM MEDICATION MGT NOT E: LOCAL TITLE: MEDICATION RENEWAL STANDARD TITLE: MEDICATION MGT NOTE DATE OF NOTE: DEC 04, 2023@12:48 ENTRY DATE: DEC 04, 2023@12:48:50 AUTHOR: MARCOS DASH EXP COSIGNER: URGENCY: STATUS: COMPLETED HELLO WE HAVE A [employer] REQUESTING MEDICATION RENEWAL FOR WINDOW PLEASE Active Outpatient Medications (including Supplies): Active Outpatient Medications Status = 1) LOLLY /lolly/ MARCOS DASH CAKE DECORATOR Signed: 12/04/2023 12:49 Receipt Acknowledged By: 12/04/2023 13:13 /lolly/ Artie Lentz DNP, DIESEL DINKEY ENGINEER-BC, CNL Primary Care Nurse Practitioner MARCOS DASH [facility]
--- OUTSIDE RECORDS SUMMARY | 2024-10-11 16:51 | XMS_ITS | Encounter Summary ---
Author Name [facility] [place] Organization [place] Address [address] [place] [id number] Care Team Providers Care Continuous Improvement Coach Name Role Phone SHERLYN BRADLEY Primary Care [...] PART B Apr 05, 2020 PART B [id number] COCO FARLEY [place] PATIENT MEDICARE (WNR) MEDICARE (M) PART A Mar 06, 2019 PART A [id number] COCO FARLEY PATIENT Selected Encounter This section includes the information on record at [place] for the Encounter. Date/Time Encounter Type Encounter Description Reason Pro vider Source Jan 25, 2024 02:08 PM Outpatient Encounter ENDOCRINOLOGY IHE Encounter Template Text not used by [place] Plan of Treatment: Future Appointments (+ 6 [...] 20 appointments. The data comes from all [place] treatment facilities. Appointment Date/Time Appointment Type Appointme nt Facility Name Mar 12, 2024 08:30 AM AMBULATORY - MEDICINE [place] [facility] [place] [facility] Apr 01, 2024 09:00 AM AMBULATORY - NONE [place] [facility] [place] [facility] Jul 22, 2024 08:00 AM AMBULATORY - MEDICINE [place] [facility] Lab Results: +/- 30 days of the encounter This section includes the Chemistry and Hematology Lab Results on record with [place] for the patient. Radiology Reports and Pathology Reports are provided separately, in subsequent sections. Lab Results This section contains the Chemistry/Hematology Results that were resulted 30 days before or 30 daysafter the date of the Encounter. Date/Time Source Result Type Result - Unit Interpretation Reference Range Comment Jan 21, 2024 09:04 AM [facility] THYROID T4 FREE(FT4) (WROX) Specimen Type: SERUM Comment: Slightly hemolyzed. Some results may be affected. Ordering Provider: JEEVAN RILEY Report Released Date/Time: Dec 23, 2023 02:52 PM Reporting Lab: [facility] [place] [facility] [address] [facility] [address] Performing Lab: [facility] [place] [facility] [address] [facility] [address] THYROID T4 FREE(FT4) (WROX) 1.24 ng/dL 0.6-1.6 Jan 21, 2024 09:04 AM [facility] TSH Specimen Type: SERUM No comment entered. Ordering Provider: JEEVAN RILEY Report Released Date/Time: Dec 23, 2023 02:52 PM Reporting Lab: [facility] [place] [facility] [address] [facility] [address] Performing Lab: [facility] [address] [facility] [address] TSH 0.55 u[IU]/mL 0.35-5.00 Jan 21, 2024 09:04 AM [facility] MICROALBUMIN CREATININE RATIO PANEL Specimen Type: URINE No comment entered. Ordering Provider: JEEVAN RILEY Report Released Date/Time: Jan 21, 2024 08:56 AM Reporting Lab: [facility] [address] [facility] [address] Performing Lab: [facility] [address] [facility] [address] MICROALBUMIN/C REATININE RATIO 15.6 mg/g 0-29.9 MICROALBUMIN,Q UANTITATIVE 1.8 mg/dL RR UNAVAIL CREATININE URINE 115.12 mg/dL Jan 21, 2024 09:04 AM [facility] HEMOGLOBIN A1C PANEL Specimen Type: BLOOD Comment: [...] Jan 21, 2024 08:56 AM Reporting Lab: [facility] [address] [facility] [address] Performing Lab: [facility] [address] [facility] [address] HEMOGLOBIN A1C 5.3 4.0-5.6 Jan 21, 2024 09:04 AM [facility] BASIC METABOLIC PANEL (fasting) Specimen Type: SERUM No comment entered. Ordering Provider: JEEVAN RILEY Report Released Date/Time: Jan 21, 2024 08:56 AM Reporting Lab: [facility] [address] [facility] [address] Performing Lab: [address] [address] UREA NITROGEN 16 mg/dL 7-25 GLUCOSE 86 [...] and tobacco- related health factors from the [place] facility where the Encounter took place. Current Smoking Status This section includes the most current smoking, or tobacco-related health factor, from the [place] facility where the Encounter took place. Date/Time Current Smoking Status Comment Facil ity Sep 04, 2023 01:14 PM VA-TOBACCO USE 30 YEARS OR MORE [place] [facility] [place] [facility] Tobacco Use History This section includes a history of the smoking, or tobacco-related health factors, that were collected on or before the date of the Encounter. The data comes from the [place] facility where the Encounter took place. 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 [facility] [place] [facility] Sep 04, 2023 01:14 PM VA-TOBACCO USE MED NO [facility] [place] [facility] Sep 04, 2023 01:14 PM VA-TOBACCO USE WI 30 MIN OF WAKEUP [facility] [place] [facility] Sep 04, 2023 01:14 PM VA-TOBACCO USER EVERY DAY [facility] [place] [facility] Oct 01, 2022 09:45 AM VA-TOBACCO DOESNT USE WI 30 MIN WAKEUP [facility] [place] [facility] Oct 01, 2022 09:45 AM VA-TOBACCO USE 30 YEARS OR MORE [facility] [place] [facility] Oct 01, 2022 09:45 AM VA-TOBACCO USE ADVICE [facility] [place] [facility] Oct 01, 2022 09:45 AM VA-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 USE 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 [facility] [place] [facility] Oct 01, 2022 09:45 AM VA-TOBACCO USE MED NO [facility] [place] [facility] Oct 01, 2022 09:45 AM VA-TOBACCO USER EVERY DAY [facility] [place] [facility] Sep 07, 2021 10:30 AM VA-TOBACCO USE 30 YEARS OR MORE [facility] [place] [facility] Sep 07, 2021 10:30 AM VA-TOBACCO USE ADVICE [facility] [place] [facility] Sep 07, 2021 10:30 AM VA-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 USE 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 [facility] [place] [facility] Sep 07, 2021 10:30 AM VA-TOBACCO USE MED NO [facility] [place] [facility] Sep 07, 2021 10:30 AM VA-TOBACCO USE [place] 30 MIN OF WAKEUP [facility] [place] [facility] Sep 07, 2021 10:30 AM VA-TOBACCO USER EVERY DAY [facility] [place] [facility] Jun 08, 2020 09:00 AM VA-TOBACCO USE 30 YEARS OR MORE [facility] [place] [facility] Jun 08, 2020 09:00 AM VA-TOBACCO USE ADVICE [facility] [place] [facility] Jun 08, 2020 09:00 AM VA-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 USE 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 [facility] [place] [facility] Jun 08, 2020 09:00 AM VA-TOBACCO USE MED NO [facility] [place] [facility] Jun 08, 2020 09:00 AM VA-TOBACCO USE [place] 30 MIN OF WAKEUP [facility] [place] [facility] Jun 08, 2020 09:00 AM VA-TOBACCO USER EVERY DAY [facility] [place] [facility] Feb 01, 2019 02:27 PM VA-TOBACCO USE 30 YEARS OR MORE [facility] [place] [facility] Feb 01, 2019 02:27 PM VA-TOBACCO USE ADVICE [facility] [place] [facility] Feb 01, 2019 02:27 PM VA-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 USE 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 [facility] [place] [facility] Feb 01, 2019 02:27 PM VA-TOBACCO USE MED NO [facility] [place] [facility] Feb 01, 2019 02:27 PM VA-TOBACCO USE WI 30 MIN OF WAKEUP [facility] [place] [facility] Feb 01, 2019 02:27 PM VA-TOBACCO USER EVERY DAY [facility] [place] [facility] Apr 02, 2018 02:47 PM CURRENT SMOKER [facility] C [facility] [facility] Apr 02, 2018 02:47 PM V1-PT DECLINES REF TO TOBACCO CESS PRGM [facility] Apr 02, 2018 02:47 PM V1-PT DECLINES TOB ACCO CESSATION MEDS [facility] Apr 02, 2018 02:47 PM V1-PT THINKING ABO UT QUIT TOBACCO USE [facility] Encounter Notes: All associated encounter notes This section contains the clinical notes associated to the Encounter. Date/Time Encounter Note(s) Provider Source Jan 25, 2024 02:08 PM LETTERS: LOCAL TITLE: PATIENT LETTER (B) STANDARD TITLE: LETTERS DATE OF NOTE: JAN 25, 2024@14:08 ENTRY DATE: JAN 25, 2024@14:09 AUTHOR: JEEVAN RILEY COSIGNER: URGENCY: STATUS: COMPLETED Jan [place] RENDON [address] [place] [address] Dear [place], Your recent test results are as follows: 01/21/2024 09:04 SERUM !! Free T4 1.24 ng/dL 0.6 - 1.6 01/21/2024 09:04 SERUM TSH 0.55 uIU/mL 0.35 - 5.00 01/21/2024 09:04 BLOOD !! HEMOGLOBIN A1C 5.3 % 4.0 - 5.6 01/21/2024 09:04 SERUM CREATININE, Serum 0.85 mg/dL 0.50 - 1.40 eGFR(CKD-EPI 2020 >90 mL/min Ref: >=60 SODIUM 133 L mmol/L 135 - 145 POTASSIUM 4.7 mmol/L 3.5 - 5.0 CHLORIDE 96 L mmol/L 100 - 110 CO2 23 mEq/L 20 - 30 UREA NITROGEN 16 mg/dL 7 - 25 GLUCOSE 86 mg/dL 65 - 100 01/21/2024 09:04 URINE mALB/Cr 15.6 mg/G 0 - 29.9 Your kidney function blood test and chemistries are fine. Your urine test is normal. Your thyroid function blood tests are normal on your present dose. Please continue your present levothyroxine dose. Please call if you have any questions or concerns at [phone] option 2 option 4. Sincerely, MD ROSEMARY Perry ALICE [facility]
--- OUTSIDE RECORDS SUMMARY | 2024-10-11 16:51 | XMS_ITS | Encounter Summary ---
Author Name [facility] [place] Address [address] [place] [id number] Care Team Providers Care Transmitter Engineer In Charge Name Role Phone ARTIE LENTZ [facility] Insurance Providers: All historical and current Section [...] PART B Apr 05, 2020 PART B [id number] COCO FARLEY PATIENT MEDICARE (WNR) MEDICARE (M) PART A Mar 06, 2019 PART A [id number] COCO FARLEY PATIENT Selected Encounter This section includes the information on record at [place] for the Encounter. Date/Time Encounter Type Encounter Description Reason Pro vider Source Dec 29, 2023 02:30 PM Outpatient Encounter ADMIN PAT ACTIVTIES (MASNONCT) IHE Encounter Template Text not used by [place] Plan of Treatment: Future Appointments (+ 6 [...] 20 appointments. The data comes from all [place] treatment facilities. Appointment Date/Time Appointment Type Appointme nt Facility Name Dec 30, 2023 03:20 PM AMBULATORY [place]ICINE [place] [facility] [place] [facility] Jan 21, 2024 08:30 AM AMBULATORY - MEDICINE [place] [facility] Mar 12, 2024 08:30 AM AMBULATORY - MEDICINE [place] [facility] Apr 01, 2024 09:00 AM AMBULATORY - NONE [place] [facility] Lab Results: +/- 30 days of the encounter This section includes the Chemistry and Hematology Lab Results on record with [place] for the patient. Radiology Reports and Pathology Reports are provided separately, in subsequent sections. Lab Results This section contains the Chemistry/Hematology Results that were resulted 30 days before or 30 daysafter the date of the Encounter. Date/Time Source Result Type Result - Unit Interpretation Reference Range Comment Jan 21, 2024 09:04 AM [facility] THYROID T4 FREE(FT4) (WROX) Specimen Type: SERUM Comment: Slightly hemolyzed. Some results may be affected. Ordering Provider: JEEVAN RILEY Report Released Date/Time: Dec 23, 2023 02:52 PM Reporting Lab: [facility] [address] [facility] [address] Performing Lab: [facility] [address] [facility] [address] THYROID T4 FREE(FT4) (WROX) 1.24 ng/dL 0.6-1.6 Jan 21, 2024 09:04 AM [facility] TSH Specimen Type: SERUM No comment entered. Ordering Provider: JEEVAN RILEY Report Released Date/Time: Dec 23, 2023 02:52 PM Reporting Lab: [facility]TR[facility] [address] [facility] [address] Performing Lab: [facility] [address] [facility] [address] TSH 0.55 u[IU]/mL 0.35-5.00 Jan 21, 2024 09:04 AM [facility] MICROALBUMIN CREATININE RATIO PANEL Specimen Type: URINE No comment entered. Ordering Provider: JEEVAN RILEY Report Released Date/Time: Jan 21, 2024 08:56 AM Reporting Lab: [facility] [address] [facility] [address] Performing Lab: [facility] [address] [facility] [address] MICROALBUMIN/C REATININE RATIO 15.6 mg/g 0-29.9 MICROALBUMIN,Q UANTITATIVE 1.8 mg/dL RR UNAVAIL CREATININE URINE 115.12 mg/dL Jan 21, 2024 09:04 AM [facility] HEMOGLOBIN A1C PANEL Specimen Type: BLOOD [...] Jan 21, 2024 08:56 AM Reporting Lab: [facility] [address] [facility] [address] Performing Lab: [address] [address] HEMOGLOBIN A1C 5.3 4.0-5.6 Jan 21, 2024 09:04 AM [facility] BASIC METABOLIC PANEL (fasting) Specimen Type: SERUM No comment entered. Ordering Provider: JEEVAN RILEY Report Released Date/Time: Jan 21, 2024 08:56 AM Reporting Lab: [facility] [address] [facility] [address] Performing Lab: [address] [address] UREA NITROGEN 16 mg/dL 7-25 GLUCOSE 86 [...] and tobacco- related health factors from the [place] facility where the Encounter took place. Current Smoking Status This section includes the most current smoking, or tobacco-related health factor, from the [place] facility where the Encounter took place. Date/Time Current Smoking Status Comment Facil ity Sep 04, 2023 01:14 PM VA-TOBACCO USE 30 YEARS OR MORE [place] [facility] [place] [facility] Tobacco Use History This section includes a history of the smoking, or tobacco-related health factors, that were collected on or before the date of the Encounter. The data comes from the [place] facility where the Encounter took place. 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 NO [facility] [place] [facility] Sep 07, 2021 10:30 AM VA-TOBACCO USE EXECUTIVE COMMUNICATIONS MANAGER NO [facility] [place] [facility] Jun 08, 2020 09:00 AM VA-TOBACCO USE EXECUTIVE COMMUNICATIONS MANAGER NO [facility] [place] [facility] Feb 01, 2019 02:27 PM VA-TOBACCO USE EXECUTIVE COMMUNICATIONS MANAGER NO [facility] [place] [facility] Feb 01, 2019 02:27 PM VA-TOBACCO USE MED NO [facility] [place] [facility] Feb 01, 2019 02:27 PM VA-TOBACCO USE [place] 30 MIN OF WAKEUP [facility] [place] [facility] Feb 01, 2019 02:27 PM VA-TOBACCO USER EVERY DAY [facility] [place] [facility] Apr 02, 2018 02:47 PM CURRENT SMOKER [facility] Apr 02, 2018 02:47 PM V1-PT DECLINES REF TO TOBACCO CESS [facility] Apr 02, 2018 02:47 PM V1-PT DECLINES TOB ACCO CESSATION MEDS [facility] Apr 02, 2018 02:47 PM V1-PT THINKING ABO UT QUIT TOBACCO USE [facility] Encounter Notes: All associated encounter notes This section contains the clinical notes associated to the Encounter. Date/Time Encounter Note(s) Provider Source Dec 29, 2023 02:30 PM MEDICATION MGT NOT E: LOCAL TITLE: MEDICATION RENEWAL STANDARD TITLE: MEDICATION MGT NOTE DATE OF NOTE: DEC 29, 2023@14:30 ENTRY DATE: DEC 29, 2023@14:31:08 AUTHOR: ISAÍAS RENEE EXP COSIGNER: URGENCY: STATUS: COMPLETED Hello, is requesting a refill on the following prescription(s). Please renew if appropriate.Thank you for your time. LEVOTHYROXINE NA (SYNTHROID) 88MCG TAB [facility]: [id number] (3) *Dosage: 88 (MCG) Verb: TAKE Dispense Units: 1 Noun: TABLET *Route: ORAL *Schedule: QAMAC (4)Pat Instructions: TAKE ON AN EMPTY STOMACH WITH A FULL GLASS OF WATER Indications: FOR THYROID /es/ ISAÍAS RENEE Signed: 12/29/2023 14:31 Receipt Acknowledged By: 12/29/2023 15:03 /lolly/ Artie Lentz DNP, LEAD CASTER HELPER-BC, CNL Primary Care Nurse Practitioner 12/30/2023 09:01 /lolly/ Dena Jade MSN RN CNL Primary Care RN ISAÍAS RENEE [facility]
--- OUTSIDE RECORDS SUMMARY | 2024-10-11 16:51 | XMS_ITS | Encounter Summary ---
Author Name [facility] [place] [facility] [place] Address [address] [place] [id number] Care Team Providers Care Chef Name Role Phone SHERLYN BRADLEY [facility] Providers: All historical and current [...] PART B Apr 05, 2020 PART B [id number] NIKOLECOCO MOCK PATIENT MEDICARE (WNR) MEDICARE (M) PART A Mar 06, 2019 PART A [id number] NIKOLECOCO MOCK PATIENT Selected Encounter This section includes the information on [place] at [place] for the Encounter. Date/Time Encounter Type Encounter Description Reason Provider Source Jan 21, 2024 08:30 AM OFFICE O/P EST MOD 30 MIN ENDOCRINOLOGY ICD-10-CM M81.0 Age-related osteoporosis w/o current pathological fracture JEEVAN RILEY Encounter Template Text not used by [facility] Assessments - Encounter Diagnoses This section includes the primary and secondary diagnoses documented for the Encounter. Date/Time Primary/Secondary Diagnosis Diagnosis Name Provider Source Jan 21, 2024 12:26 PM PRIMARY Age-related osteoporosis w/o current pathological fracture RHONDA RILEYCE [facility] [place] [facility] Jan 21, 2024 12:26 PM SECONDARY Benign neoplasm of pituitary gland JEEVAN RILEY [facility] Jan 21, 2024 12:26 PM SECONDARY Hypothyroidism, unspecified ROSEMARYJEEVAN [facility] Plan of Treatment: Future Appointments (+ 6 months) and Future Tests (+/- 45 days) The Plan of Treatment section includes future care activities for the patient from all [place] [facility] [facility]. This section includes future appointments and [...] 12, 2024 08:30 AM AMBULATORY - MEDICINE [place] C NTRL W[place] [facility] Apr 01, 2024 09:00 AM [facility] Jul 22, 2024 08:00 AM AMBULATORY - MEDICINE [facility] Lab Results: +/- 30 days [...] Range Comment Jan 21, 2024 09:04 AM [facility] THYROID T4 FREE(FT4) (WROX) Specimen Type: SERUM Comment: Slightly hemolyzed. Some results may be affected. Ordering Provider: JEEVAN RILEY Report Released Date/Time: Dec 23, 2023 02:52 PM Reporting Lab: [facility] [address] [facility] [address] Performing Lab: [facility] [address] [facility] [address] THYROID T4 FREE(FT4) (WROX) 1.24 ng/dL 0.6-1.6 Jan 21, 2024 09:04 AM [facility] TSH Specimen Type: SERUM No comment entered. Ordering Provider: JEEVAN RILEY Report Released Date/Time: Dec 23, 2023 02:52 PM Reporting Lab: [facility] [address] [facility] [address] Performing Lab: [address] [address] TSH 0.55 u[IU]/mL 0.35-5.00 Jan 21, 2024 09:04 AM [facility] MICROALBUMIN CREATININE RATIO PANEL Specimen Type: URINE No comment entered. Ordering Provider: JEEVAN RILEY Report Released Date/Time: Jan 21, 2024 08:56 AM Reporting Lab: [facility] [address] [facility] [address] Performing Lab: [address] [address] MICROALBUMIN/C REATININE RATIO 15.6 mg/g 0-29.9 MICROALBUMIN,Q UANTITATIVE 1.8 mg/dL RR UNAVAIL CREATININE URINE 115.12 mg/dL Jan 21, 2024 09:04 AM [facility] HEMOGLOBIN A1C PANEL Specimen Type: BLOOD Comment: [...] Jan 21, 2024 08:56 AM Reporting Lab: [address] [address] Performing Lab: [address] [address] HEMOGLOBIN A1C 5.3 4.0-5.6 Jan 21, 2024 09:04 AM [facility] BASIC METABOLIC PANEL (fasting) Specimen Type: SERUM No comment entered. Ordering Provider: JEEVAN RILEY Report Released Date/Time: Jan 21, 2024 08:56 AM Reporting Lab: [facility] [address] [facility] [address] Performing Lab: [facility] [address] [facility] [address] UREA NITROGEN 16 mg/dL 7-25 GLUCOSE 86 mg/dL 65-100 SODIUM 133 mmol/L L 135-145 POTASSIUM 4.7 mmol/L 3.5-5.0 CHLORIDE 96 mmol/L L 100-110 CO2 23 meq/L 20-30 CREATININE, Serum 0.85 mg/dL 0.50-1.40 eGFR(CKD-EPI 2020) >90 mL/min >60 Vital Signs: All taken on the encounter date This section contains inpatient and outpatient Vital Signs collected on the date of the Encounter. Date/Time Temperature Pulse Blood Pressure Respiratory Rate SP02 Pain Height Weight Body Mass Index Source Jan 21, 2024 08:27 AM 97.5 102 160/80 20 93 0 199 30 [facility] Social History: Smoking Status (Most current) [...] 2023 01:14 PM VA-TOBACCO USER EVERY DAY [facility] Tobacco Use History This section includes a history of the smoking, or tobacco-related health factors, that were collected on or before the date of the Encounter. The data comes from the [place] facility where the Encounter took place. Date/Time Smoking Status/Tobacco Use Comment F acility Sep 04, 2023 01:14 PM VA-TOBACCO USE ADVICE [facility] [place] [facility] Sep 04, 2023 01:14 PM VA-TOBACCO USE HEAD SAMPLER NO [place] [facility] Sep 04, 2023 01:14 PM VA-TOBACCO USE MED NO [facility] Sep 04, 2023 01:14 PM VA-TOBACCO USE WI 30 MIN OF WAKEUP [place] [facility] [facility] Sep 04, 2023 01:14 PM VA-TOBACCO USER EVERY DAY [place] [facility] [place] [facility] Oct 01, 2022 09:45 AM VA-TOBACCO DOESNT USE WI 30 MIN WAKEUP [facility] [place] [facility] Oct 01, 2022 09:45 AM VA-TOBACCO USE 30 YEARS OR MORE [place] [facility] [place] [facility] Oct 01, 2022 09:45 AM VA-TOBACCO USE ADVICE [place] [facility] [place] [facility] Oct 01, 2022 09:45 AM VA-TOBACCO USE HEAD SAMPLER NO [place] [facility] [place] [facility] Oct 01, 2022 09:45 AM VA-TOBACCO USE MED NO [place] [facility] [facility] Oct 01, 2022 09:45 AM VA-TOBACCO USER EVERY DAY [facility] [place] [facility] Sep 07, 2021 10:30 AM VA-TOBACCO USE 30 YEARS OR MORE [place] [facility] [place] [facility] Sep 07, 2021 10:30 AM VA-TOBACCO USE ADVICE [facility] [place] [facility] Sep 07, 2021 10:30 AM VA-TOBACCO USE HEAD SAMPLER NO [facility] [place] [facility] Sep 07, 2021 10:30 AM VA-TOBACCO USE MED NO [place] [facility] [facility] Sep 07, 2021 10:30 AM VA-TOBACCO USE [place] 30 MIN OF WAKEUP [facility] [place] [facility] Sep 07, 2021 10:30 AM VA-TOBACCO USER EVERY DAY [facility] [place] [facility] Jun 08, 2020 09:00 AM VA-TOBACCO USE 30 YEARS OR MORE [place] [facility] Jun 08, 2020 09:00 AM VA-TOBACCO USE ADVICE [facility] [place] [facility] Jun 08, 2020 09:00 AM VA-TOBACCO USE HEAD SAMPLER NO [facility] [place] [facility] Jun 08, 2020 09:00 AM VA-TOBACCO USE MED NO [facility] [place] [facility] Jun 08, 2020 09:00 AM VA-TOBACCO USE [place] 30 MIN OF WAKEUP [facility]L [facility] Jun 08, 2020 09:00 AM VA-TOBACCO USER EVERY DAY [facility] Feb 01, 2019 02:27 PM VA-TOBACCO USE 30 YEARS OR MORE [place] CNTRL [place] [facility] Feb 01, 2019 02:27 PM VA-TOBACCO USE ADVICE [facility] Feb 01, 2019 02:27 PM VA-TOBACCO USE HEAD SAMPLER NO [place] CNTR [place] [facility] Feb 01, 2019 02:27 PM VA-TOBACCO USE MED NO [place] CN[place] [facility] Feb 01, 2019 02:27 PM VA-TOBACCO USE [place] 30 MIN OF WAKEUP [facility] Feb 01, 2019 02:27 PM VA-TOBACCO USER EVERY DAY [facility]ITALRMAR[facility]THTR[facility] Apr 02, 2018 02:47 PM [facility] [place] [facility] Apr 02, 2018 02:47 PM V1-PT DECLINES REF TO TOBACCO CESS PRGM [place] CNTRL [place] [facility] Apr 02, 2018 02:47 PM V1-PT DECLINES TOB ACCO CESSATION MEDS [facility] Apr 02, 2018 02:47 PM V1-PT THINKING ABO UT QUIT TOBACCO USE [facility] Encounter Notes: All associated encounter notes This section contains the clinical notes associated to the Encounter. Date/Time Encounter Note(s) Provider Source Jan 18, 2024 04:08 PM PHYSICIAN NOTE: LOCAL TITLE: NOTE STANDARD TITLE: PHYSICIAN NOTE DATE OF NOTE: JAN 18, 2024@16:08 ENTRY DATE: JAN 18, 2024@16:08:08 AUTHOR: JEEVAN RILEY COSIGNER: URGENCY: STATUS: COMPLETED NOTE Has ADDENDA CC: Benign pituitary neoplasm, osteoporosis, (central) hypothyroidism HPI: 11/2023 pituitary MRI showed shrinkage of the pituitary adenoma. No h/a. Please see previous notes for historical details. No falls or fraactures Calcium last filled 06/2023, and vitamin D fills up to date. Little dairy in diet. He was seen by [facility] and four extractions are anticipated. All recent endocrine labs were reviewed with the patient. Oct 23 Oct 02 Oct 02 Apr 10 Reference 2023 2022 2022 2022 GLUCOSE 106 H 97 mg/dL 65 - 100 BUN 21 13 mg/dL 7 - 25 CREATININE 0.87 0.80 mg/dL .5 - 1.4 Sodium 138 135 mmol/L 135 - 145 K+/Pot 4.8 4.4 mmol/L 3.5 - 5 CL 100 99 L mmol/L 100 - 110 CO2 27 25 mEq/L 20 - 30 CA 9.5 9.5 9.9 mg/dL 8.5 - 10.2 Oct 23, 2023@09:48 VITAMIN D (25-OH): 46 ng/mL 20 - 50 FEBRUARY 11, 2023 Study: DEXA scan. Comparison: None. Findings: Measurement of bone mineral content gives a T score of -2.5 in the hip, and -1.2 in the lumbar spine. Active problems - Computerized Problem List is the source for the followin. Multiple nodules of lung 2. Osteoporosis 3. Benign neoplasm of pituitary gland 4. Diplopia 5. Hypothyroid 6. Polyp Colon ([facility] [id number]) 7. Aneurysm of thoracic aorta 8. HTN - Hypertension ([facility] [id number]) 9. Hyperlipidemia ([facility] [id number]) 10. Chronic obstructive lung disease 11. Tobacco user 12. Elevated blood-pressure reading without diagnosis of hypertension 13. Dyspnea ([facility] [id number]) 14. Diagnosis or Condition Deferred on Carpio I Active Outpatient Medications (including Supplies): Active Outpatient Medications Status 1) ATORVASTATIN CALCIUM 40MG TAB TAKE ONE-HALF TABLET BY ACTIVE MOUTH ONCE DAILY FOR CHOLESTEROL 2) CALCIUM 200MG (CA CITRATE-950MG) TAB TAKE THREE ACTIVE TABLETS BY MOUTH TWICE DAILY 3) CHOLECALCIF 25MCG (D3-1,000UNIT) TAB TAKE ONE TABLET ACTIVE BY MOUTH ONCE DAILY FOR VITAMIN SUPPLEMENTATION 4) FLUTICAS 250/SALMETEROL 50 INHL DISK 60 INHALE 1 PUFF ACTIVE BY MOUTH TWICE DAILY - RINSE MOUTH AFTER USE REPLACES SYMBICORT (BUDESONIDE/FORMOTEROL) 5) LEVOTHYROXINE NA (SYNTHROID) 88MCG TAB TAKE [...] ONCE DAILY THIS REPLACES TIOTROPIUM HANDIHALER CAPSULES SHx: He and sister live together ROS: Some chronic respiratoroy sx no fever. PE: affect pleasant appropriate speaking easily in full sentences A/P: Active problems - Computerized Problem List is the source for the followin. Osteoporosis Continue calcium and vitamin D . Defer bisphosphonates until extractions are complete. 3. Benign neoplasm of pituitary gland follow MRI in two years Central hypothyroidism Follow TFTs next visit. Hyperglycemia. He thinks that past bg result was fasting. FBG hgba1c Medication Reconciliation: Outpatient: Has the patient been taking medications as documented in the EMLR? YES: The patient has been taking medications as documented in the EMLR. Essential Medication List for Review used to complete this medication reconciliation. INCLUDED IN THIS LIST: Alphabetical list of active outpatient prescriptions dispensed from this [facility] (local) and dispensed from another [place] or [facility] facility (remote) as well as inpatient orders [...] Remote Allergy/ADR Data available for this patient [place] [facility] HCTZ HYDROCHLOROTHIAZIDE Med Recon NoGlossary (Tool #1) INCLUDED IN THIS LIST: Alphabetical list of active outpatient prescriptions dispensed from this [place] (local) and dispensed from another [place] or [facility] facility (remote) as well as inpatient orders (local pending and active), local clinic medications, locally documented non-VA medications, and local prescriptions that have or been discontinued in the past 90 days. Non-VA Meds Last Documented On: Data not found NOTE The display of VA prescriptions dispensed from another [place] or [facility] facility (remote) is limited to active outpatient prescription entries matched to National Drug File at the originating site and may not include some items such as investigational drugs, compounds, etc. NOT INCLUDED IN THIS LIST: Medications self-entered by the patient into personal health records (i.e. [employer]) are NOT included in this list. Non-VA medications documented outside this [place], remote inpatient orders (regardless of status) and remote clinic medications are NOT included in this list. The patient and provider must always discuss medications the patient is taking, regardless of where the medication was dispensed or obtained. OUTPT ALBUTEROL 90MCG (CFC-F) 200D ORAL INHL (Status = ) INHALE 2 PUFFS BY MOUTH EVERY 4 HOURS NEEDED Rx# [id number] Last Released: 12/29/23 Qty/Days Supply: 11/04 Rx Expiration Date: 01/10/24 Refills Remainin OUTPT ATORVASTATIN CALCIUM 40MG TAB (Status = Active) TAKE ONE-HALF TABLET BY MOUTH ONCE DAILY FOR CHOLESTEROL Rx# [id number] Last Released: 12/29/23 Qty/Days Supply: Rx Expiration Date: 09/11/24 Refills Remainin OUTPT CALCIUM 200MG (CA CITRATE-950MG) TAB (Status = Active) TAKE THREE TABLETS BY MOUTH TWICE DAILY Rx# [id number] Last Released: 07/02/23 Qty/Days Supply: Rx Expiration Date: 02/16/24 Refills Remainin Indication: FOR OSTEOPOROSIS OUTPT CHOLECALCIF 25MCG (D3-1,000UNIT) TAB (Status = Active) TAKE ONE TABLET BY MOUTH ONCE DAILY FOR VITAMIN SUPPLEMENTATION Rx# [id number] Last Released: 12/04/23 Qty/Days Supply: Rx Expiration Date: 04/26/24 Refills Remainin Indication: FOR VITAMIN D DEFICIENCY OUTPT FLUTICAS 250/SALMETEROL 50 INHL DISK 60 (Status = Active) INHALE 1 PUFF BY MOUTH TWICE DAILY - RINSE MOUTH AFTER USE REPLACES SYMBICORT (BUDESONIDE/FORMOTEROL) Rx# [id number] Last Released: 12/29/23 Qty/Days Supply: 11/04 Rx Expiration Date: 12/04/24 Refills Remainin OUTPT LEVOTHYROXINE NA (SYNTHROID) 88MCG TAB (Status = Discontinued) TAKE ONE TABLET BY MOUTH EVERY MORNING 30 MINUTES BEFORE BREAKFAST TAKE ON AN EMPTY STOMACH WITH A FULL GLASS OF WATER Rx# [id number] Last Released: 10/02/23 Qty/Days Supply: Rx Expiration Date: 11/05/23 Refills Remainin Indication: FOR THYROID OUTPT LEVOTHYROXINE NA (SYNTHROID) 88MCG TAB (Status = Active) TAKE ONE TABLET BY MOUTH EVERY MORNING 30 MINUTES BEFORE BREAKFAST TAKE ON AN EMPTY STOMACH WITH A FULL GLASS OF WATER Rx# [id number] Last Released: 01/01/24 Qty/Days Supply: Rx Expiration Date: 12/29/24 Refills Remainin Indication: FOR THYROID OUTPT LISINOPRIL 30MG TAB (Status = Active) TAKE ONE TABLET BY MOUTH ONCE DAILY TO CONTROL BLOOD PRESSURE NOTE NEW TABLET STRENGTH Rx# [id number] Last Released: 12/29/23 Qty/Days Supply: Rx Expiration Date: 09/11/24 Refills Remainin OUTPT TIOTROPIUM 2.5MCG/ACTUAT 60D ORAL INHL (Status = Active) INHALE 2 PUFFS BY MOUTH ONCE DAILY THIS REPLACES TIOTROPIUM HANDIHALER CAPSULES Rx# [id number] Last Released: 09/19/23 Qty/Days Supply: Rx Expiration Date: 09/11/24 Refills Remainin OUTPT TRIAMCINOLONE ACETONIDE 0.1% CREAM (Status = ) APPLY A THIN LAYER TOPICALLY TWICE DAILY FOR CONTACT DERMATITIS Rx# [id number] Last Released: 11/04/22 Qty/Days Supply: Rx Expiration Date: 11/05/23 Refills Remainin Indication: FOR CONTACT DERMATITIS SUPPLIES /galina RILEY MD STAFF PHYSICIAN Signed: 01/21/2024 12:26 01/21/2024 ADDENDUM STATUS: COMPLETED Hypothyroidism TFTs today. No temp intolerance, diarrhea, constipation, tremor or palpitatations. /galina RILEY MD STAFF PHYSICIAN Signed: 01/21/2024 12:27 JEEVAN RILEY CNTRL WSTRN [facility]
--- OUTSIDE RECORDS SUMMARY | 2024-10-11 16:51 | XMS_ITS | Encounter Summary ---
Author Name [facility] [place] Organization [place] Address [address] [place] [id number] Care Team Providers Care Blocker And Polisher Gold Wheel Name Role Phone SHERLYN BRADLEY [facility] Insurance Providers: All historical and current [...] PART B Apr 05, 2020 PART B [id number] COCO FARLEY PATIENT MEDICARE (WNR) MEDICARE (M) PART A Mar 06, 2019 PART A [id number] COCO FARLEY PATIENT Selected Encounter This section includes the information on record at [place] for the Encounter. Date/Time Encounter Type Encounter Description Reason Pro vider Source Dec 29, 2023 02:40 PM Outpatient Encounter ADMIN PAT ACTIVTIES (MASNONCT) IHE Encounter Template Text not used by [place] Plan of Treatment: Future Appointments (+ 6 [...] 20 appointments. The data comes from all [place] treatment facilities. Appointment Date/Time Appointment Type Appointme nt Facility Name Dec 30, 2023 03:20 PM AMBULATORY - MEDICINE [place] [facility] [facility] Jan 21, 2024 08:30 AM AMBULATORY - MEDICINE [place] [facility] [facility] Mar 12, 2024 08:30 AM AMBULATORY - MEDICINE [place] [facility] [facility] Apr 01, 2024 09:00 AM AMBULATORY - NONE [place] [facility] Lab Results: +/- 30 days of the encounter This section includes the Chemistry and Hematology Lab Results on record with [place] for the patient. Radiology Reports and Pathology Reports are provided separately, in subsequent sections. Lab Results This section contains the Chemistry/Hematology Results that were resulted 30 days before or 30 daysafter the date of the Encounter. Date/Time Source Result Type Result - Unit Interpretation Reference Range Comment Jan 21, 2024 09:04 AM [facility] THYROID T4 FREE(FT4) (WROX) Specimen Type: SERUM Comment: Slightly hemolyzed. Some results may be affected. Ordering Provider: JEEVAN RILEY Report Released Date/Time: Dec 23, 2023 02:52 PM Reporting Lab: [facility] [address] [facility] [address] Performing Lab: [facility] [place] [facility] [address] [facility] [address] THYROID T4 FREE(FT4) (WROX) 1.24 ng/dL 0.6-1.6 Jan 21, 2024 09:04 AM [facility] TSH Specimen Type: SERUM No comment entered. Ordering Provider: JEEVAN RILEY Report Released Date/Time: Dec 23, 2023 02:52 PM Reporting Lab: [facility] [address] [facility] [address] Performing Lab: [facility] [address] [facility] [address] TSH 0.55 u[IU]/mL 0.35-5.00 Jan 21, 2024 09:04 AM [facility] MICROALBUMIN CREATININE RATIO PANEL Specimen Type: URINE No comment entered. Ordering Provider: JEEVAN RILEY Report Released Date/Time: Jan 21, 2024 08:56 AM Reporting Lab: [facility] [address] [facility] [address] Performing Lab: [facility] [address] [facility] [address] MICROALBUMIN/C REATININE RATIO 15.6 mg/g 0-29.9 MICROALBUMIN,Q UANTITATIVE 1.8 mg/dL RR UNAVAIL CREATININE URINE 115.12 mg/dL Jan 21, 2024 09:04 AM [facility] HEMOGLOBIN A1C PANEL Specimen Type: BLOOD Comment: [...] Jan 21, 2024 08:56 AM Reporting Lab: [facility] [address] [facility] [address] Performing Lab: [address] [address] HEMOGLOBIN A1C 5.3 4.0-5.6 Jan 21, 2024 09:04 AM [facility] BASIC METABOLIC PANEL (fasting) Specimen Type: SERUM No comment entered. Ordering Provider: JEEVAN RILEY Report Released Date/Time: Jan 21, 2024 08:56 AM Reporting Lab: [facility] [address] [facility] [address] Performing Lab: [address] [address] UREA NITROGEN 16 mg/dL 7-25 GLUCOSE 86 [...] and tobacco- related health factors from the [place] facility where the Encounter took place. Current Smoking Status This section includes the most current smoking, or tobacco-related health factor, from the [place] facility where the Encounter took place. Date/Time Current Smoking Status Comment Facil ity Sep 04, 2023 01:14 PM VA-TOBACCO USER EVERY DAY [place] [facility] [place] [facility] Tobacco Use History This section includes a history of the smoking, or tobacco-related health factors, that were collected on or before the date of the Encounter. The data comes from the [place] facility where the Encounter took place. Date/Time Smoking Status/Tobacco Use Comment F acility Sep 04, 2023 01:14 PM VA-TOBACCO USE ADVICE [facility] [place] [facility] Sep 04, 2023 01:14 PM VA-TOBACCO USE ACOUSTIC INTELLIGENCE SPECIALIST NO [facility] [place] [facility] Sep 04, 2023 01:14 PM VA-TOBACCO USE MED NO [facility] [place] [facility] Sep 04, 2023 01:14 PM VA-TOBACCO USE [place] 30 MIN OF WAKEUP [place] [facility] [facility] Sep 04, 2023 01:14 PM VA-TOBACCO USER EVERY DAY [facility] [place] [facility] Oct 01, 2022 09:45 AM VA-TOBACCO DOESNT USE WI 30 MIN WAKEUP [facility] [place] [facility] Oct 01, 2022 09:45 AM VA-TOBACCO USE 30 YEARS OR MORE [facility] [place] [facility] Oct 01, 2022 09:45 AM VA-TOBACCO USE ADVICE [facility] [place] [facility] Oct 01, 2022 09:45 AM VA-TOBACCO USE ACOUSTIC INTELLIGENCE SPECIALIST NO [facility] [place] [facility] Oct 01, 2022 09:45 AM VA-TOBACCO USE MED NO [facility] [place] [facility] Oct 01, 2022 09:45 AM VA-TOBACCO USER EVERY DAY [facility] [place] [facility] Sep 07, 2021 10:30 AM VA-TOBACCO USE 30 YEARS OR MORE [facility] [place] [facility] Sep 07, 2021 10:30 AM VA-TOBACCO USE ADVICE [facility] [place] [facility] Sep 07, 2021 10:30 AM VA-TOBACCO USE ACOUSTIC INTELLIGENCE SPECIALIST NO [facility] [place] [facility] Sep 07, 2021 10:30 AM VA-TOBACCO USE MED NO [facility] [place] [facility] Sep 07, 2021 10:30 AM VA-TOBACCO USE [place] 30 MIN OF WAKEUP [facility] [place] [facility] Sep 07, 2021 10:30 AM VA-TOBACCO USER EVERY DAY [facility] [place] [facility] Jun 08, 2020 09:00 AM VA-TOBACCO USE 30 YEARS OR MORE [facility] [place] [facility] Jun 08, 2020 09:00 AM VA-TOBACCO USE ADVICE [facility] [place] [facility] Jun 08, 2020 09:00 AM VA-TOBACCO USE ACOUSTIC INTELLIGENCE SPECIALIST NO [facility] [place] [facility] Jun 08, 2020 09:00 AM VA-TOBACCO USE MED NO [facility] [place] [facility] Jun 08, 2020 09:00 AM VA-TOBACCO USE [place] 30 MIN OF WAKEUP [facility] [place] [facility] Jun 08, 2020 09:00 AM VA-TOBACCO USER EVERY DAY [facility] [place] [facility] Feb 01, 2019 02:27 PM VA-TOBACCO USE 30 YEARS OR MORE [facility] [place] [facility] Feb 01, 2019 02:27 PM VA-TOBACCO USE ADVICE [facility] [place] [facility] Feb 01, 2019 02:27 PM VA-TOBACCO USE ACOUSTIC INTELLIGENCE SPECIALIST NO [facility] [place] [facility] Feb 01, 2019 02:27 PM VA-TOBACCO USE MED NO [facility] [place] [facility] Feb 01, 2019 02:27 PM VA-TOBACCO USE [place] 30 MIN OF WAKEUP [facility] [place] [facility] Feb 01, 2019 02:27 PM VA-TOBACCO USER EVERY DAY [facility] [place] [facility] Apr 02, 2018 02:47 PM CURRENT SMOKER [facility] Apr 02, 2018 02:47 PM V1-PT DECLINES REF TO TOBACCO CESS PRGM [facility] Apr 02, 2018 02:47 PM V1-PT DECLINES TOB ACCO CESSATION MEDS [facility] [place] [facility] Apr 02, 2018 02:47 PM V1-PT THINKING ABO UT QUIT [facility]BACCO [facility] Encounter Notes: All associated encounter notes This section contains the clinical notes associated to the Encounter. Date/Time Encounter Note(s) Provider Source Dec 29, 2023 02:40 PM ADMINISTRATIVE NOT E: LOCAL TITLE: CCC: SCHEDULING ADMINISTRATION STANDARD TITLE: ADMINISTRATIVE NOTE DATE OF NOTE: DEC 29, 2023@14:40:21 ENTRY DATE: DEC 29, 2023@14:40:21 AUTHOR: ISMAEL VELIZ EXP COSIGNER: URGENCY: STATUS: COMPLETED CCC: SCHEDULING ADMINISTRATION Has ADDENDA Patient Demographics Patient Name: KINGSTON RENDON Patient Primary Phone: [phone] Patient Primary Address: [address] [place] [id number] Patient : 1955 Patient Age: 68 Call Back Number: [phone] Caller/Recipient Relation to Patient: Self Administrative Administrative Note Reason: Medication Renewal VA Medications Refill/Renewal Request: Please renew for pickup today or mail if not able to put in today: Rx #[id number] - LEVOTHYROXINE NA (SYNTHROID) 88MCG TAB /lolly/ ISMAEL VELIZ [id number] Signed: 12/29/2023 14:40 Receipt Acknowledged By: 12/31/2023 11:01 /lolly/ Alonso Bolanos, Health Guide Dog Mobility Instructor LAST REPAIRER HELPER,PRIMARY CARE 12/30/2023 09:01 /lolly/ Dena BYNUM RN CNL Primary Care RN 12/30/2023 ADDENDUM STATUS: COMPLETED Med refilled by PCP /lolly/ Dena BYNUM RN CNL Primary Care RN Signed: 12/30/2023 09:01 ISMAEL VELIZ [facility]
--- OUTSIDE RECORDS SUMMARY | 2024-10-11 16:51 | XMS_ITS ---
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 Date/Time Encounter Type Encounter Description Reason Pro vider Source Jan 21, 2024 11:07 AM Outpatient Encounter ADMIN PAT ACTIVTIES (MASNONCT) IHE Encounter Template Text not used by [place] Plan of Treatment: Future Appointments (+ 6 [...] 20 appointments. The data comes from all [place] treatment facilities. Appointment Date/Time Appointment Type Appointme nt Facility Name Mar 12, 2024 08:30 AM AMBULATORY - MEDICINE [place] [place] [facility] Apr 01, 2024 09:00 AM AMBULATORY - NONE [place] [facility] Jul 22, 2024 08:00 AM AMBULATORY - MEDICINE [facility] Lab Results: +/- 30 days of the encounter This section includes the Chemistry and Hematology Lab Results on record with [place] for the patient. Radiology Reports and Pathology Reports are provided separately, in subsequent sections. Lab Results This section contains the Chemistry/Hematology Results that were resulted 30 days before or 30 daysafter the date of the Encounter. Date/Time Source Result Type Result - Unit Interpretation Reference Range Comment Jan 21, 2024 09:04 AM [facility] THYROID T4 FREE(FT4) (WROX) Specimen Type: SERUM Comment: Slightly hemolyzed. Some results may be affected. Ordering Provider: JEEVAN RILEY Report Released Date/Time: Dec 23, 2023 02:52 PM Reporting Lab: [facility] [address] [facility] [address] Performing Lab: [facility] [address] [facility] [address] THYROID T4 FREE(FT4) (WROX) 1.24 ng/dL 0.6-1.6 Jan 21, 2024 09:04 AM [facility] TSH Specimen Type: SERUM No comment entered. Ordering Provider: JEEVAN RILEY Report Released Date/Time: Dec 23, 2023 02:52 PM Reporting Lab: [facility] [address] [facility] [address] Performing Lab: [facility] [address] [facility] [address] TSH 0.55 u[IU]/mL 0.35-5.00 Jan 21, 2024 09:04 AM [facility] MICROALBUMIN CREATININE RATIO PANEL Specimen Type: URINE No comment entered. Ordering Provider: JEEVAN RILEY Report Released Date/Time: Jan 21, 2024 08:56 AM Reporting Lab: [facility] [address] [facility] [address] Performing Lab: [facility] [address] [facility] [address] MICROALBUMIN/C REATININE RATIO 15.6 mg/g 0-29.9 MICROALBUMIN,Q UANTITATIVE 1.8 mg/dL RR UNAVAIL CREATININE URINE 115.12 mg/dL Jan 21, 2024 09:04 AM [facility] HEMOGLOBIN A1C PANEL Specimen Type: BLOOD [...] Jan 21, 2024 08:56 AM Reporting Lab: [facility] [address] [facility] [address] Performing Lab: [facility] [address] [facility] [address] HEMOGLOBIN A1C 5.3 4.0-5.6 Jan 21, 2024 09:04 AM [facility] BASIC METABOLIC PANEL (fasting) Specimen Type: SERUM No comment entered. Ordering Provider: JEEVAN RILEY Report Released Date/Time: Jan 21, 2024 08:56 AM Reporting Lab: [facility] [address] [facility] [address] Performing Lab: [facility] [address] [facility] [address] UREA NITROGEN 16 mg/dL 7-25 GLUCOSE 86 [...] 102 160/80 20 93 0 199 30 [place] [facility] Social History: Smoking Status (Most current) and Tobacco Use (All prior to encounter date) This section includes the most current, and the historical, smoking and tobacco- related health factors from the [place] facility where the Encounter took place. Current Smoking Status This section includes the most current smoking, or tobacco-related health factor, from the [place] facility where the Encounter took place. Date/Time Current Smoking Status Comment Facil ity Sep 04, 2023 01:14 PM VA-TOBACCO USER EVERY DAY [place] [facility] Tobacco Use History This section includes a history of the smoking, or tobacco-related health factors, that were collected on or before the date of the Encounter. The data comes from the [place] facility where the Encounter took place. 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 [facility] [place] [facility] Sep 04, 2023 01:14 PM VA-TOBACCO USE MED NO [place] [facility] [place] [facility] Sep 04, 2023 01:14 PM VA-TOBACCO USE [place] 30 MIN OF WAKEUP [facility] [place] [facility] Sep 04, 2023 01:14 PM VA-TOBACCO USER EVERY DAY [facility] [place] [facility] Oct 01, 2022 09:45 AM VA-TOBACCO DOESNT USE WI 30 MIN WAKEUP [facility] [place] [facility] Oct 01, 2022 09:45 AM VA-TOBACCO USE 30 YEARS OR MORE [facility] [facility] Oct 01, 2022 09:45 AM VA-TOBACCO USE ADVICE [facility] [place] [facility] Oct 01, 2022 09:45 AM VA-TOBACCO USE HYPOID GEAR TESTER NO [facility] [place] [facility] Oct 01, 2022 09:45 AM VA-TOBACCO USE MED NO [facility] [place] [facility] Oct 01, 2022 09:45 AM VA-TOBACCO USER EVERY DAY [facility] [place] [facility] Sep 07, 2021 10:30 AM VA-TOBACCO USE 30 YEARS OR MORE [facility] [place] [facility] Sep 07, 2021 10:30 AM VA-TOBACCO USE ADVICE [facility] [place] [facility] Sep 07, 2021 10:30 AM VA-TOBACCO USE HYPOID GEAR TESTER NO [facility] [facility] Sep 07, 2021 10:30 AM VA-TOBACCO USE MED NO [facility] [facility] Sep 07, 2021 10:30 AM VA-TOBACCO USE [place] 30 MIN OF WAKEUP [facility] [place] [facility] Sep 07, 2021 10:30 AM VA-TOBACCO USER EVERY DAY [facility] [place] [facility] Jun 08, 2020 09:00 AM VA-TOBACCO USE 30 YEARS OR MORE [facility] [place] [facility] Jun 08, 2020 09:00 AM VA-TOBACCO USE ADVICE [facility] [place] [facility] Jun 08, 2020 09:00 AM VA-TOBACCO USE HYPOID GEAR TESTER NO [facility] [facility] Jun 08, 2020 09:00 AM VA-TOBACCO USE MED NO [facility] [place] [facility] Jun 08, 2020 09:00 AM VA-TOBACCO USE [place] 30 MIN OF WAKEUP [facility] [place] [facility] Jun 08, 2020 09:00 AM VA-TOBACCO USER EVERY DAY [facility] [place] [facility] Feb 01, 2019 02:27 PM VA-TOBACCO USE 30 YEARS OR MORE [facility] [facility] Feb 01, 2019 02:27 PM VA-TOBACCO USE ADVICE [facility] [place] [facility] Feb 01, 2019 02:27 PM VA-TOBACCO USE HYPOID GEAR TESTER NO [facility] [place] [facility] Feb 01, 2019 02:27 PM VA-TOBACCO USE MED NO [facility] [place] [facility] Feb 01, 2019 02:27 PM VA-TOBACCO USE [place] 30 MIN OF WAKEUP [facility] Feb 01, 2019 02:27 PM VA-TOBACCO USER EVERY DAY [facility] Apr 02, 2018 02:47 PM CURRENT SMOKER [facility] Apr 02, 2018 02:47 PM V1-PT DECLINES REF TO TOBACCO CESS PRGM [facility] Apr 02, 2018 02:47 PM V1-PT DECLINES TOB ACCO CESSATION MEDS [facility] Apr 02, 2018 02:47 PM V1-PT THINKING ABO UT QUIT TOBACCO USE [facility] Encounter Notes: All associated encounter notes This section contains the clinical notes associated to the Encounter. Date/Time Encounter Note(s) Provider Source Jan 21, 2024 11:07 AM MEDICATION MGT NOT E: LOCAL TITLE: MEDICATION RENEWAL STANDARD TITLE: MEDICATION MGT NOTE DATE OF NOTE: JAN 21, 2024@11:07 ENTRY DATE: JAN 21, 2024@11:07:20 AUTHOR: MARCOS DASH EXP COSIGNER: URGENCY: STATUS: COMPLETED Hello, is requesting a refill on the following prescription(s) FOR MAILING . Please renew if appropriate.Thank you for your time. 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
--- OUTSIDE RECORDS SUMMARY | 2024-10-11 16:51 | XMS_ITS | Encounter Summary ---
Author Name [facility] [place] [facility] [place] Organization [facility] [place] Address [address] [place] [id number] Care Team Providers Care Residential Team Leader Name Role Phone SHERLYN BRADLEY Primary Care Provider [facility] Insurance Providers: All [...] PART B Apr 05, 2020 PART B [id number] [facility] [place] PATIENT MEDICARE (WNR) MEDICARE (M) PART A Mar 06, 2019 PART A [id number] [facility] [place] PATIENT Selected Encounter This section includes the information on record at [place] for the Encounter. Date/Time Encounter Type Encounter Description Reason Pro vider Source Jul 13, 2024 08:14 AM Outpatient Encounter ENDOCRINOLOGY IHE Encounter Template [...] AMBULATORY - MEDICINE [place] [facility] [place] [facility] Sep 14, 2024 08:00 AM AMBULATORY - MEDICINE [place] [facility] [place] [facility] Oct 15, 2024 08:30 AM AMBULATORY - NONE [facility] Lab Results: +/- 30 days of [...] Range Comment Jul 14, 2024 09:10 AM [facility] COPEPTIN Specimen Type: SERUM Comment: REFERENCE RANGE: <= 13.7 pmol/L This test was developed and its analytical performance characteristics have been determined by [facility]. It has not been cleared or approved by FDA. This assay has been validated pursuant to the CLIA regulations and is used for clinical purposes. Test performed by [facility] [id number] [place] [address] Director Zone: Estela Barlow MD,PHD,PATSY Test Reported by [facility], [address] [place], [place] Seamus Joseph M.D., Ph.D., Director of Laboratories , CLIA [id number] TEST PERFORMED AT: , Ordering Provider: JEEVAN RILEY Report Released Date/Time: Jul 13, 2024 09:00 AM Reporting Lab: [facility] [address] [facility] [address] Performing Lab: [facility] [address] [address] COPEPTIN 7.3 SEE BELOW Jul 14, 2024 09:10 AM [facility] [place] OSMOLALITY (URINE) Specimen Type: URINE Comment: Manually entered by: RTO Ordering Provider: JEEVAN RILEY Report Released Date/Time: Jul 13, 2024 09:00 AM Reporting Lab: [facility] [address] [facility] [address] Performing Lab: [facility] [address] [facility] [address] OSMOLALITY (URINE) [phone] Jul 14, 2024 09:10 AM [facility] OSMOLALITY (SERUM) Specimen Type: SERUM Comment: Manually entered by: RTO Ordering Provider: JEEVAN RILEY Report Released Date/Time: Jul 13, 2024 09:00 AM Reporting Lab: [facility] [address] [facility] [address] Performing Lab: [facility] [address] [facility] [address] OSMOLALITY (SERUM) 267 L [phone] Jul 14, 2024 09:10 AM [facility] SODIUM RANDOM URINE Specimen Type: URINE No comment entered. Ordering Provider: JEEVAN RILEY Report Released Date/Time: Jul 13, 2024 09:00 AM Reporting Lab: [facility] [address] [facility] [address] Performing Lab: [facility] [address] [facility] [address] SODIUM, URINE 53 mmol/L 20-400 Jul 14, 2024 09:10 AM [facility] BASIC METABOLIC PANEL (non-fasting) Specimen Type: SERUM No comment entered. Ordering Provider: JEEVAN RILEY Report Released Date/Time: Jul 13, 2024 09:00 AM Reporting Lab: [facility] [address] [facility] [address] Performing Lab: [facility] [address] [address] UREA NITROGEN 15 mg/dL 7-25 GLUCOSE 95 mg/dL 65-100 SODIUM 128 mmol/L L 135-145 POTASSIUM 4.9 mmol/L 3.5-5.0 CHLORIDE 88 mmol/L L 100-110 CO2 24 meq/L 20-30 CREATININE, Serum 0.91 mg/dL 0.50-1.40 eGFR(CKD-EPI 2020) 90 mL/min >60 Jul 12, 2024 01:01 PM [facility] [place] [facility] THYROID T4 FREE(FT4) (WROX) Specimen Type: SERUM No comment entered. Ordering Provider: JEEVAN RILEY Report Released Date/Time: Jul 09, 2024 10:34 AM Reporting Lab: [facility] [place] [facility] [address] [facility] [address] Performing Lab: [facility] [place] [facility] [address] [facility] [address] THYROID T4 FREE(FT4) (WROX) 1.38 ng/dL 0.6-1.6 Jul 12, 2024 01:01 PM [facility] TSH Specimen Type: SERUM No comment entered. Ordering Provider: JEEVAN RILEY Report Released Date/Time: Jul 09, 2024 10:34 AM Reporting Lab: [facility] TRN [place] [facility] [address] [facility] [address] Performing Lab: [facility]TR[facility] [place] [facility] [address] [address] TSH 1.37 u[IU]/mL 0.35-5.00 Jul 12, 2024 01:01 PM [facility] CALCIUM Specimen Type: SERUM No comment entered. Ordering Provider: JEEVAN RILEY Report Released Date/Time: Jul 09, 2024 10:34 AM Reporting Lab: [facility]ITALTR[facility] [place] [facility] [address] [facility] [address] Performing Lab: [facility] [place] [facility] [address] [facility] [address] CALCIUM 10.0 mg/dL 8.5-10.2 Jul 12, 2024 01:01 PM [facility] VITAMIN D (25-OH) Specimen Type: SERUM No comment entered. Ordering Provider: JEEVAN RILEY Report Released Date/Time: Jul 09, 2024 10:34 AM Reporting Lab: [facility] [address] [facility] [address] Performing Lab: [facility] [address] [address] VITAMIN D (25-OH) 44 ng/mL 20-50 Jul 12, 2024 01:01 PM [facility] BASIC METABOLIC PANEL (non-fasting) Specimen Type: SERUM No comment entered. Ordering Provider: JEEVAN RILEY Report Released Date/Time: Jul 09, 2024 10:50 AM Reporting Lab: [facility] [address] [facility] [address] Performing Lab: [facility] [address] [address] UREA NITROGEN 13 mg/dL 7-25 GLUCOSE 78 [...] PM VA-TOBACCO USE 30 YEARS OR MORE [facility] Tobacco Use History This section includes a history of the smoking, or tobacco-related health factors, that were collected on or before the date of the Encounter. The data comes from the [place] facility where the Encounter took place. 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 [place] [facility] Sep 04, 2023 01:14 PM VA-TOBACCO USE MED NO [facility] [place] [facility] Sep 04, 2023 01:14 PM VA-TOBACCO USE WI 30 MIN OF WAKEUP [facility] [place] [facility] Sep 04, 2023 01:14 PM VA-TOBACCO USER EVERY DAY [facility] [place] [facility] Oct 01, 2022 09:45 AM VA-TOBACCO DOESNT USE WI 30 MIN WAKEUP [facility] [place] [facility] Oct 01, 2022 09:45 AM VA-TOBACCO USE 30 YEARS OR MORE [facility] [place] [facility] Oct 01, 2022 09:45 AM VA-TOBACCO USE ADVICE [facility] [place] [facility] Oct 01, 2022 09:45 AM 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 [facility] [place] [facility] Oct 01, 2022 09:45 AM VA-TOBACCO USE MED NO [facility] [place] [facility] Oct 01, 2022 09:45 AM VA-TOBACCO USER EVERY DAY [facility] [place] [facility] Sep 07, 2021 10:30 AM VA-TOBACCO USE 30 YEARS OR MORE [facility] [place] [facility] Sep 07, 2021 10:30 AM VA-TOBACCO USE ADVICE [facility] [place] [facility] Sep 07, 2021 10:30 AM 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 [facility] [place] [facility] Sep 07, 2021 10:30 AM VA-TOBACCO USE MED NO [facility] [place] [facility] Sep 07, 2021 10:30 AM VA-TOBACCO USE [place] 30 MIN OF WAKEUP [facility] [place] [facility] Sep 07, 2021 10:30 AM VA-TOBACCO USER EVERY DAY [facility] [place] [facility] Jun 08, 2020 09:00 AM VA-TOBACCO USE 30 YEARS OR MORE [facility] [place] [facility] Jun 08, 2020 09:00 AM VA-TOBACCO USE ADVICE [facility] [place] [facility] Jun 08, 2020 09:00 AM 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 [facility] [place] [facility] Jun 08, 2020 09:00 AM VA-TOBACCO USE MED NO [facility] [place] [facility] Jun 08, 2020 09:00 AM VA-TOBACCO USE WI 30 MIN OF WAKEUP [facility] [place] [facility] Jun 08, 2020 09:00 AM VA-TOBACCO USER EVERY DAY [facility] [place] [facility] Feb 01, 2019 02:27 PM VA-TOBACCO USE 30 YEARS OR MORE [facility] [place] [facility] Feb 01, 2019 02:27 PM VA-TOBACCO USE ADVICE [facility] [place] [facility] Feb 01, 2019 02:27 PM 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 [facility] Feb 01, 2019 02:27 PM VA-TOBACCO USE MED NO [facility] [place] [facility] Feb 01, 2019 02:27 PM VA-TOBACCO USE [place] 30 MIN OF WAKEUP [facility] [place] [facility] Feb 01, 2019 02:27 PM VA-TOBACCO USER EVERY DAY [facility] [place] [facility] Apr 02, 2018 02:47 PM CURRENT SMOKER [facility] Apr 02, 2018 02:47 PM V1-PT DECLINES REF TO TOBACCO CESS PRGM [facility] [place] [facility] Apr 02, 2018 02:47 PM V1-PT DECLINES TOB ACCO CESSATION MEDS [facility] [place] [facility] Apr 02, 2018 02:47 PM V1-PT THINKING ABO UT QUIT TOBACCO USE [facility] Encounter Notes: All associated encounter notes This section contains the clinical notes associated to the Encounter. Date/Time Encounter Note(s) Provider Source Jul 13, 2024 08:14 AM LETTERS: LOCAL TITLE: PATIENT LETTER (B) STANDARD TITLE: LETTERS DATE OF NOTE: JUL 13, 2024@08:14 ENTRY DATE: JUL 13, 2024@08:14:41 AUTHOR: JEEVAN RILEY COSIGNER: URGENCY: STATUS: COMPLETED Jul [facility]ON [address] [place] [id number] Dear , Your recent test results are as follows: Jul 14, 2024@09:10 SERUM COPEPTIN: 7.3 pmol/L <15 07/12/2024 13:01 SERUM TSH 1.37 uIU/mL 0.35 - 5.00 VITAMIN D (25-OH) 44 ng/mL 20 - 50 07/12/2024 13:01 SERUM CALCIUM 10.0 mg/dL 8.5 - 10.2 CREATININE, Serum 0.81 mg/dL 0.50 - 1.40 eGFR(CKD-EPI 2020 >90 mL/min Ref: >=60 SODIUM 126 L mmol/L 135 - 145 POTASSIUM 4.7 mmol/L 3.5 - 5.0 CHLORIDE 87 L mmol/L 100 - 110 CO2 27 mEq/L 20 - 30 UREA NITROGEN 13 mg/dL 7 - 25 GLUCOSE 78 mg/dL 65 - 100 OSMOLALITY (SERUM) 267 L mOsm/K H2O 80 - 300 Jul 14, 2024@09:10 URINE SODIUM, URINE: 53 mmol/L 20 - 400 Jul 14, 2024@09:10 URINE OSMOLALITY (URINE): 354 mOsm/K H20 300 - 1000 Your level of the hormone which causes retention of water is normal. This is higher than expected, since your sodium is low, but does not suggest that you have an excess of this hormone from a lung nodule causing the low sodium. Your kidneys are not clearing water. Your will liberalize the salt in your diet somewhat. I am sending you the medication demeclocycline in the mail. You will have your blood drawn in two weeks. You will keep your fluid intake to 8 glasses a day or less. Be well. Please call if you have any questions or concerns at [phone] option 2 option 4. Sincerely, MD ROSEMARY Perry ALICE [facility]
--- OUTSIDE RECORDS SUMMARY | 2024-10-11 16:51 | XMS_ITS | Encounter Summary ---
Author Name [facility] [place] [place] Organization [facility] [place] [place] Address [address] [place] [id number] Care Team Providers Care Maxillofacial Pathology Name Role Phone SHERLYN LENTZ Primary Care Provider [facility] [...] PART B Apr 05, 2020 PART B [id number] NIKOLECOCO MOCK PATIENT MEDICARE (WNR) MEDICARE (M) PART A Mar 06, 2019 PART A [id number] NIKOLEDEEJAYMary JoCOCO PATIENT Selected Encounter This section includes the information on record at [place] for the Encounter. Date/Time Encounter Type Encounter Description Reason Provider Source Mar 12, 2024 08:30 AM OFFICE O/P EST LOW 20 MIN PRIMARY CARE/MEDICINE ICD-10-CM R91.1 Solitary pulmonary nodule PHILLIP LENTZ AM Nathaniel Encounter Template Text not used by [place] Assessments - Encounter Diagnoses This section includes the primary and secondary diagnoses documented for the Encounter. Date/Time Primary/Secondary Diagnosis Diagnosis Name Provider Source Mar 12, 2024 08:17 AM PRIMARY Solitary pulmonary nodule PADMINI JADE [facility] [place] [facility] Mar 12, 2024 08:17 AM SECONDARY Benign neoplasm of pituitary gland PADMINI JADEA [facility] [place] [facility] Mar 12, 2024 08:17 AM SECONDARY Chronic obstructive pulmonary disease, unspecified PADMINI JADEA [facility] [place] [facility] Mar 12, 2024 08:17 AM SECONDARY Elevated blood-pressure reading, w/o diagnosis of htn PADMINI JADE [facility] [place] [facility] Mar 12, 2024 08:17 AM SECONDARY Encounter for immunization PADMINI JADE [facility] [place] [facility] Mar 12, 2024 08:17 AM SECONDARY Essential (primary) hypertension PADMINI JADE [facility] [place] [facility] Mar 12, 2024 08:17 AM SECONDARY Hyperlipidemia, unspecified PADMINI JADEA [facility] [place] [facility] Mar 12, 2024 08:17 AM SECONDARY Tobacco use PADMINI JADEA [facility] [place] [facility] Plan of Treatment: Future Appointments (+ 6 months) and Future Tests (+/- 45 days) The Plan of Treatment section includes future care activities for the patient from all [place] treatmentfacilities. This section includes future appointments and future orders which are active, pending or scheduled. Future Appointments This section includes appointments that were scheduled to occur 6 months from the date of the Encounter, up to a maximum of 20 appointments. The data comes from all [place] treatment facilities. Appointment Date/Time Appointment Type Appointme nt Facility Name Apr 01, 2024 09:00 AM AMBULATORY - NONE [facility] [place] [facility] Jul 22, 2024 08:00 AM AMBULATORY - MEDICINE [facility] [place] [facility] Lab Results: +/- 30 days of the encounter This section includes the Chemistry and Hematology Lab Results on record with [place] for the patient. Radiology Reports and Pathology Reports are provided separately, in subsequent sections. Lab Results This section contains the Chemistry/Hematology Results that were resulted 30 days before or 30 daysafter the date of the Encounter. Date/Time Source Result Type Result - Unit Interpretation Reference Range Comment Mar 12, 2024 07:[address] [facility] LIPID PANEL, NON FASTING Specimen Type: SERUM No comment entered. Ordering Provider: JANET LENTZ Report Released Date/Time: February 26, 2024 08:16 AM Reporting [facility] [address] [facility] [phone] Performing Lab: [facility] [address] [facility] [address] CHOLESTEROL 161 mg/dL TRIGLYCERIDE 73 mg/dL 0-150 LDL calculated 75 mg/dL 0-129 CHOL/HDL 2.3 HDL CHOLESTEROL 71 mg/dL H 40-60 Mar 12, 2024 07:[address] [facility] CBC Specimen Type: BLOOD No comment entered. Ordering Provider: JANET LENTZ Report Released Date/Time: February 26, 2024 08:16 AM Reporting [facility] [address] [facility] [address] Performing [facility] [address] [facility] [address] WBC 8.45 10*3/uL 4.50-11.00 RBC 5.21 10*6/uL 4.23-5.66 HGB 17.1 g/dL H 12.8-17 HCT 47.8 39.2-50.4 MCV 91.7 fL 82-99 MCHC 35.8 g/dL H 30.8-35.1 PLT 186 10*3/uL 140-360 RDW-CV 12.2 12.0-16.0 MCH 32.8 pg H 26.2-32.6 Mar 12, 2024 07:[address] [facility] LIVER FUNCTION Specimen Type: SERUM No comment entered. Ordering Provider: JANET LENTZ Report Released Date/Time: February 26, 2024 08:16 AM Reporting Lab: [facility] [address] [facility] [phone] Performing Lab: [facility]VERSUSE[address] [address] PROTEIN,TOTAL 7.1 g/dL 6.0-8.3 ALBUMIN 4.4 g/dL 3.5-5.0 ALKALINE PHOSPHATASE 110 U/L 40-150 AST 48 U/L H 5-34 ALT 29 U/L BILIRUBIN, TOTAL 1.5 mg/dL H 0.2-1.2 BILIRUBIN, DIRECT 0.6 mg/dL H 0-0.5 Mar 12, 2024 07:[address] [facility] Apps4AllUNM [facility]OSPITALMedisse [facility] FERRITIN Specimen Type: SERUM No comment entered. Ordering Provider: JANET LENTZ Report Released Date/Time: Mar 15, 2024 10:26 AM Reporting Lab: [address] [address] Performing Lab: [address] [address] FERRITIN 683 ng/mL H 20-300 Vital Signs: All taken on the encounter date This section contains inpatient and outpatient Vital Signs collected on the date of the Encounter. Date/Time Temperature Pulse Blood Pressure Respiratory Rate SP02 Pain Height Weight Body Mass Index Source Mar 12, 2024 07:59 AM 97.5 97 120/68 20 [address] [facility] PlayerLyncH[facility] Immunizations: All administered on the encounter date This section contains immunizations associated to the Encounter. Immunization Series Date Issued Reaction Comments PNEUMOCOCCAL CONJUGATE PCV20 , POLYSACCHARIDE GIT180 CONJUGATE, ADJUVANT, PF Mar 12, 2024 Social History: Smoking Status (Most current) and Tobacco Use (All prior to encounter date) This section includes the most current, and the historical, smoking and tobacco- related health factors from the [place] facility where the Encounter took place. Current Smoking Status This section includes the most current smoking, or tobacco-related health factor, from the [place] facility where the Encounter took place. Date/Time Current Smoking Status Comment Facil ity Sep 04, 2023 01:14 PM VA-TOBACCO USER EVERY DAY [facility] PlayerLyncHILLCREST [facility] TULSAMedisse [facility] Tobacco Use History This section includes a history of the smoking, or tobacco-related health factors, that were collected on or before the date of the Encounter. The data comes from the [place] facility where the Encounter took place. 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 [facility] [place] [facility] Sep 04, 2023 01:14 PM VA-TOBACCO USE MED NO [facility] [place] [facility] Sep 04, 2023 01:14 PM VA-TOBACCO USE WI 30 MIN OF WAKEUP [facility] [place] [facility] Sep 04, 2023 01:14 PM VA-TOBACCO USER EVERY DAY [facility] [place] [facility] Oct 01, 2022 09:45 AM VA-TOBACCO DOESNT USE WI 30 MIN WAKEUP [facility] [place] [facility] Oct 01, 2022 09:45 AM VA-TOBACCO USE 30 YEARS OR MORE [facility] [place] [facility] Oct 01, 2022 09:45 AM VA-TOBACCO USE ADVICE [facility] [place] [facility] Oct 01, 2022 09:45 AM 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 [facility] [place] [facility] Oct 01, 2022 09:45 AM VA-TOBACCO USE MED NO [facility] [place] [facility] Oct 01, 2022 09:45 AM VA-TOBACCO USER EVERY DAY [facility] [place] [facility] Sep 07, 2021 10:30 AM VA-TOBACCO USE 30 YEARS OR MORE [facility] [place] [facility] Sep 07, 2021 10:30 AM VA-TOBACCO USE ADVICE [facility] [place] [facility] Sep 07, 2021 10:30 AM 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 [facility] [place] [facility] Sep 07, 2021 10:30 AM VA-TOBACCO USE MED NO [facility] [place] [facility] Sep 07, 2021 10:30 AM VA-TOBACCO USE WI 30 MIN OF WAKEUP [facility] [place] [facility] Sep 07, 2021 10:30 AM VA-TOBACCO USER EVERY DAY [facility] [place] [facility] Jun 08, 2020 09:00 AM VA-TOBACCO USE 30 YEARS OR MORE [facility] [place] [facility] Jun 08, 2020 09:00 AM VA-TOBACCO USE ADVICE [facility] [place] [facility] Jun 08, 2020 09:00 AM 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 [facility] [place] [facility] Jun 08, 2020 09:00 AM VA-TOBACCO USE MED NO [facility] [place] [facility] Jun 08, 2020 09:00 AM VA-TOBACCO USE [place] 30 MIN OF WAKEUP [facility] [place] [facility] Jun 08, 2020 09:00 AM VA-TOBACCO USER EVERY DAY [facility] [place] [facility] Feb 01, 2019 02:27 PM VA-TOBACCO USE 30 YEARS OR MORE [facility] [place] [facility] Feb 01, 2019 02:27 PM VA-TOBACCO USE ADVICE [facility] [place] [facility] Feb 01, 2019 02:27 PM 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 [facility] [place] [facility] Feb 01, 2019 02:27 PM VA-TOBACCO USE MED NO [facility] [place] [facility] Feb 01, 2019 02:27 PM VA-TOBACCO USE WI 30 MIN OF WAKEUP [facility] [place] [facility] Feb 01, 2019 02:27 PM VA-TOBACCO USER EVERY DAY [facility] [place] [facility] Apr 02, 2018 02:47 PM CURRENT SMOKER [facility] [place] [facility] Apr 02, 2018 02:47 PM V1-PT DECLINES REF TO TOBACCO CESS PRGM [facility] [place] [facility] Apr 02, 2018 02:47 PM V1-PT DECLINES TOB ACCO CESSATION MEDS [facility] [place] [facility] Apr 02, 2018 02:47 PM V1-PT THINKING ABO UT QUIT TOBACCO USE [facility] [place] [facility] Radiology Reports: +/- 30 days of [...] the Encounter. The data comes from all [place] treatment facilities. Date/Time Radiology Report Provider Source Apr 01, 2024 08:[address] THORAX W/O CONT: KINGSTON RENDON [id number] -[address] [facility] Date: APR 01, 2024@08:15 Req Phys: SHERLYN LENTZ Loc: CWM/NO/PACT 7 (Req'g Loc) Img Loc: [place]/CT Service: Unknown [facility] , (Case [id number] COMPLETE) CT THORAX W/O CONT (CT Detailed) CPT:91672 Reason for Study: follow up Clinical History: [...] 06, 2024 Date Verified: APR 06, 2024 Siding Mechanic E-Sig: Report: CT THORAX W/O CONT HISTORY: follow up COMPARISON: CT of the chest from June 06, 2023. TECHNIQUE: Helical CT of the chest with multiplanar reformats, was performed at the local [place] facility. 1231 images were received by the [place] National Teleradiology Program (NTP) for interpretation. RADIATION [...] as above. READING PHYSICIAN: Junior Rolle MD -[id number] 04/06/2024 14:08 EDT [facility] National Teleradiology Program [phone] (For Medical Practitioner Use Only) Attention Patients / Veterans: If you have questions or concerns about these test results, please contact your ordering provider or primary care team. Primary Diagnostic Code: SIGNIFICANT ABNORMALITY, ATTN NEEDED Secondary Diagnostic Codes: INCIDENTAL LUNG NODULE(NONSCREENING) Primary Interpreting Staff: RADIOLOGY,OUTSIDE SERVICE, Staff Physician / RADIOLOGY,OUTSIDE SERVICE [facility] Encounter Notes: All associated encounter notes This section contains the clinical notes associated to the Encounter. Date/Time Encounter Note(s) Provider Source Apr 06, 2024 02:18 PM PRIMARY CARE NURSE PRACTITIONER OUTPATIENT NOTE: LOCAL TITLE: NURSE PRACTITIONER OUTPATIENT NOTE STANDARD TITLE: PRIMARY CARE NURSE PRACTITIONER OUTPATIENT NOTE DATE OF NOTE: APR 06, 2024@14:18 ENTRY DATE: APR 06, 2024@14:18:48 AUTHOR: SHERLYN LENTZ EXP COSIGNER: URGENCY: STATUS: COMPLETED t/c to , i explained ct findings. Stable aneurysm, new lung nod. Will repeat in one year. /lolly/ Sherlyn Lentz DNP, LIQUOR GRINDING MILL OPERATOR-BC, CNL Primary Care Nurse Practitioner Signed: 04/06/2024 14:19 SHERLYN LENTZ [facility] Mar 23, 2024 02:05 PM PRIMARY CARE NURSE PRACTITIONER OUTPATIENT NOTE: LOCAL TITLE: NURSE PRACTITIONER OUTPATIENT NOTE STANDARD TITLE: PRIMARY CARE NURSE PRACTITIONER OUTPATIENT NOTE DATE OF NOTE: MAR 23, 2024@14:05 ENTRY DATE: MAR 23, 2024@14:05:46 AUTHOR: SHERLYN LENTZ EXP COSIGNER: URGENCY: STATUS: COMPLETED LM to review labs. /lolly/ Sherlyn Lentz DNP, LIQUOR GRINDING MILL OPERATOR-BC, CNL Primary Care Nurse Practitioner Signed: 03/23/2024 14:06 SHERLYN LENTZ [facility] [place] [facility] Mar 12, 2024 08:12 AM PRIMARY CARE NURSE PRACTITIONER OUTPATIENT NOTE: LOCAL TITLE: NURSE PRACTITIONER OUTPATIENT NOTE STANDARD TITLE: PRIMARY CARE NURSE PRACTITIONER OUTPATIENT NOTE DATE OF NOTE: MAR 12, 2024@08:12 ENTRY DATE: MAR 12, 2024@08:12:47 AUTHOR: SHERLYN LENTZ EXP COSIGNER: URGENCY: STATUS: COMPLETED Chief complaint: Patient is a 68 year old [place]. HPI: Pleasant male here to follow up. Feeling today. Recently retired, staying busy. Allergies: HCTZ HYDROCHLOROTHIAZIDE The following VA and Non-VA meds were reconciled with patient. The patient was educated on the use of the medications including indication and side effects. Active and Recently Outpatient Medications (excluding Supplies): Active Outpatient Medications Status 1) ALBUTEROL 90MCG (CFC-F) 200D ORAL INHL INHALE 2 PUFFS ACTIVE (S) BY MOUTH EVERY 4 HOURS NEEDED FOR BREATHING 2) ATORVASTATIN CALCIUM 40MG TAB TAKE ONE-HALF TABLET BY ACTIVE MOUTH ONCE DAILY FOR CHOLESTEROL 3) CHOLECALCIF 25MCG (D3-1,000UNIT) TAB TAKE ONE TABLET ACTIVE (S) BY MOUTH ONCE DAILY FOR VITAMIN SUPPLEMENTATION 4) FLUTICAS 250/SALMETEROL 50 INHL DISK 60 INHALE 1 PUFF ACTIVE (S) BY MOUTH TWICE DAILY - RINSE MOUTH [...] ONCE DAILY THIS REPLACES TIOTROPIUM HANDIHALER CAPSULES Pending Outpatient Medications Status 1) NAPROXEN 500MG TAB TAKE ONE TABLET BY MOUTH EVERY 12 PENDING HOURS NEEDED TAKE WITH FOOD; FOR PAIN/INFLAMMATION/SWELLING Inactive Outpatient Medications Status 1) CALCIUM 200MG (CA CITRATE-950MG) TAB TAKE THREE TABLETS BY MOUTH TWICE DAILY 9 Total Medications Review of Systems: Constitutional: (-)for Fevers, chills, weakness, nights sweats On examination: 97.5 F [36.4 C] (03/12/2024 07:59)120/68 (03/12/2024 07:59)97 (03/12/2024 07:59) 20 (03/12/2024 07:59)0 (03/12/2024 07:59)BMI: 29.6194 lb [88.00 kg] (03/12/2024 07:59) is alert and oriented X3 Neck: supple without masses, trachea midline, ln not palpable, no thyromegaly Cardiovasc: 2plus carotids without bruits, no JVD Heart Reguler rate and rhythm NL S1S2 no S3 or murmur Respiration: Normal respiratory effort, lungs clear ABD: Benign normal active bowel sounds no HSM no rebound or referred pain EXT: no clubbing, edema, or cyanosis All diagnostics from past month were reviewed with patient. Assessment/plan: Active problems - Computerized Problem List is the source for the followin. Multiple nodules of lung - due for imaging 2. Benign neoplasm of pituitary gland - follows endocrine, recent imaging stable 3. Aneurysm of thoracic aorta - due for imaging 4. HTN - Hypertension ([facility] [id number]) - well controlled 5. Hyperlipidemia ([facility] [id number]) - labs today 6. Chronic obstructive lung disease - stable, discussed current regimen 7. Tobacco user - continues, counseled Health Care Maintenance: Prevnar 20 today Review of medial record = 5mins Time spent with Patient including shared decision making = 20 mins Post visit documentation = 5mins Total time = 30 mins Follow up visit in 6 mos. Alert to PACT RN - Labs as necessary to address clinical status. Initial Lung Cancer Screen (Provider): No clinical exclusions, patient is a current candidate for the lung cancer screening program. Chest CT within 12 months outside of this [place] that assesses pulmonary nodules. Patient is not a current candidate for the lung cancer screening program. NOTE: this date re-times the reminder to one year from the image. If there are nodule or pulmonary findings needing evaluation, PCP will need to arrange appropriate follow-up. Date of Chest CT June 06, 2023 Patient currently uses cigarettes and does not want assistance with smoking cessation at this time. Medication Reconciliation: Outpatient: Has the patient been taking medications as documented in the EMLR? YES: The patient has been taking medications as documented in the EMLR. Essential Medication List for Review used to complete this medication reconciliation. INCLUDED IN THIS LIST: Alphabetical list of active outpatient prescriptions dispensed from this [place] (local) and dispensed from another [place] or [place] facility (remote) as well as [...] whether with a VA or non-VA provider. /lolly/ Sherlyn Lentz DNP, LIQUOR GRINDING MILL OPERATOR-BC, CNL Primary Care Nurse Practitioner Signed: 03/12/2024 08:17 SHERLYN LENTZ [facility] [place] [facility] Mar 12, 2024 08:03 AM PREVENTIVE MEDICINE NURSING NOTE: LOCAL TITLE: CLINICAL REMINDERS/NURSING STANDARD TITLE: PREVENTIVE MEDICINE NURSING NOTE DATE OF NOTE: MAR 12, 2024@08:03 ENTRY DATE: MAR 12, 2024@08:03:44 AUTHOR: ALONSO MCQUEEN COSIGNER: URGENCY: STATUS: COMPLETED CLINICAL REMINDERS/NURSING Has ADDENDA Advance Directive Screen MH AD: Patient does not have a completed advance directive on file at any facility, [facility] or outside. S/he is not interested in completing one at this time. The patient received education about Advance Directives and written notification of his/her rights. Suicide Screen: C-SSRS Screening [place]-Suicide Severity Rating Scale (C-SSRS Screener) 1. Over the past month, have you wished you were or wished you could go to sleep and not wake up? No 2. Over the past month, have you had any actual thoughts of killing yourself? No 3. Over the past month, have you been thinking about how you might do this? Response not required due to responses to other questions. 4. Over the past month, have you had these thoughts and had some intention of acting on them? Response not required due to responses to other questions. 5. Over the past month, have you started to work out or worked out the details of how to kill yourself? Response not required due to responses to other questions. 6. If yes, at any time in the past month did you intend to carry out this plan? Response not required due to responses to other questions. 7. In your lifetime, have you ever done anything, started to do anything, or prepared to do anything to end your life (for example, collected pills, obtained a gun, gave away valuables, went to the roof but didn't jump)? No 8. If YES, was this within the past 3 months? Response not required due to responses to other questions. Homelessness/Food Insecurity Screen: In the past 2 months, have you been living in stable housing that you own, rent, or stay in as part of a household? Yes - Living in stable housing. Are you worried or concerned that in the next 2 months you may NOT have stable housing that you own, rent, or stay in as part of a household? No - Not worried about housing near future The reports the following: Within the past 12 months, you worried whether your food would run out before you got money to buy more. Never true Within the past 12 months, the food you bought just didn't last and you didn't have money to get more. Never true Alcohol Use Screen (AUDIT-C): Alcohol Screen: SCREEN FOR ALCOHOL (AUDIT-C) An alcohol screening test (AUDIT-C) was negative (score=1). 1. How often did you have a drink containing alcohol in the past year? Consider a drink to be a 12 ounce can or bottle of regular beer, 8 ounces of malt liquor, a 5 ounce glass of table wine, or a 1.5 ounce shot of liquor (like scotch, gin, or vodka). Monthly or less 2. How many drinks containing alcohol did you have on a typical day when you were drinking in the past year? One or two drinks 3. How often did you have six or more drinks on one occasion in the past year? Never /lolly/ Alonso Mcqueen, Health Mortgage Professional SCREEN TENDER HELPER,PRIMARY CARE Signed: 03/12/2024 08:05 03/12/2024 ADDENDUM STATUS: COMPLETED Pneumococcal Conjugate Vaccine (PCV15/PCV20): PCV20 (Prevnar 20) Administered: PNEUMOCOCCAL CONJUGATE PCV20, POLYSACCHARIDE [id number] CONJUGATE, ADJUVANT, PF Date Administered: Mar 12, 2024 08:19 Travel Consultant: [employer] Lot: [id number] Exp Date: Jun 05, 2025 NDC: [id number] Admin Route/Site: INTRAMUSCULAR/RIGHT DELTOID Dosage: 0.5mL Vaccine Information Statement(s): PNEUMOCOCCAL CONJUGATE ([id number]) VIS February 14, 2023 (BULGARIAN) Order By: Policy Administered By: Dena Jade Vaccine Information Sheet (VIS) was given to the patient/caregiver, education regarding adverse reactions was discussed, as well as barriers to learning, if any, were acknowledged. /lolly/ Dena Jade MSN RN CNL Primary Care RN Signed: 03/12/2024 08:19 ALONSO MCQUEEN [facility]
--- OUTSIDE RECORDS SUMMARY | 2024-10-11 16:52 | XMS_ITS ---
Author Name [facility] [place] Organization [facility] [place] [facility] [place] Address [address] [place] [id number] Care Team Providers Care Behavioral Interventionist Name Role Phone SHERLYN LENTZ Primary Care Provider [facility] [place] Insurance Providers: All historical and current Section [...] PART B Apr 05, 2020 PART B [id number] NIKOLEDEEJAYMary JoCOCONDER PATIENT MEDICARE (WNR) MEDICARE (M) PART A Mar 06, 2019 PART A [id number] MIGUELITOCOCO PATIENT Selected Encounter This section includes the information on record at [place] for the Encounter. Date/Time Encounter Type Encounter Description Reason Provider Source Sep 14, 2024 08:00 AM OFFICE O/P EST HI 40 MIN PRIMARY CARE/MEDICINE ICD-10-CM J44.9 Chronic obstructive pulmonary disease, unspecified PHILLIP LENTZ AM Encounter Template Text not used by [place] Assessments - Encounter Diagnoses This section includes the primary and secondary diagnoses documented for the Encounter. Date/Time Primary/Secondary Diagnosis Diagnosis Name Provider Source Sep 14, 2024 10:22 AM PRIMARY Chronic obstructive pulmonary disease, unspecified [facility] Sep 14, 2024 10:22 AM SECONDARY Age-related osteoporosis w/o current pathological fracture LENTZ,[facility]ILL [facility] Sep 14, 2024 10:22 AM SECONDARY Benign neoplasm of pituitary gland LENTZ,[facility]ILL [facility] Sep 14, 2024 10:22 AM SECONDARY Dyspnea, unspecified LENTZ,[facility]ILL [facility] Sep 14, 2024 10:22 AM SECONDARY Encounter for immunization WENDIEPADMINI BOWMAN [facility] Sep 14, 2024 10:22 AM SECONDARY Encounter for screening for other disorder [facility] Sep 14, 2024 10:22 AM SECONDARY Essential (primary) hypertension LENTZ,WILL [facility] Sep 14, 2024 10:22 AM SECONDARY Hyperlipidemia, unspecified LENTZ,WILL [facility] Sep 14, 2024 10:22 AM SECONDARY Hypo-osmolality and hyponatremia [facility] Sep 14, 2024 10:22 AM SECONDARY Hypothyroidism, unspecified LENTZ,WILL [facility] Sep 14, 2024 10:22 AM SECONDARY Solitary pulmonary nodule LENTZ,WILL [facility] Sep 14, 2024 10:22 AM SECONDARY Tobacco abuse counseling LENTZ,[facility] Sep 14, 2024 10:22 AM SECONDARY Tobacco use LENTZ,WILL [facility] Plan of Treatment: Future Appointments (+ 6 months) and Future Tests (+/- 45 days) The Plan of Treatment section includes future care activities for the patient from all [place] treatmentcilities. This section includes future appointments and future orders which are active, pending or scheduled. Future Appointments This section includes appointments that were scheduled to occur 6 months from the date of the Encounter, up to a maximum of 20 appointments. The data comes from all [facility]. Appointment Date/Time Appointment Type Appointme nt Facility Name Oct 15, 2024 08:30 AM AMBULATORY - NONE [facility] Jan 20, 2025 08:00 AM AMBULATORY - MEDICINE [facility] Active, Pending, and Scheduled Orders This section includes a listing of several types of active, pending, and scheduled orders, including clinic medications orders, diagnostic test orders, procedure orders and consult orders; where the start date of the order is 45 days before the date of the Encounter or 45 days after the date of theEncounter. The data comes from all [facility]. Test Date/Time Test Type Test Details Facility Name Sep 14, 2024 08:27 AM Consult Order COMMUNITY CARE-PULMONARY Cons Supervisor [employer] [facility] Oct 15, 2024 08:30 AM Imaging - CT Scan Order CT THORAX W/O CONT [facility] Lab Results: +/- 30 days of [...] Result - Unit Interpretation Reference Range Comment Sep 06, 2024 09:52 AM [facility] BASIC METABOLIC PANEL (non-fasting) Specimen Type: SERUM No comment entered. Ordering Provider: JEEVAN RILEY Report Released Date/Time: Jul 16, 2024 02:39 PM Reporting Lab: [facility] [address] [facility] [address] Performing Lab: [facility] [address] [facility] [address] UREA NITROGEN 16 mg/dL 7-25 GLUCOSE 87 mg/dL 65-100 SODIUM 137 mmol/L 135-145 POTASSIUM 4.6 mmol/L 3.5-5.0 CHLORIDE 97 mmol/L L 100-110 CO2 27 meq/L 20-30 CREATININE, Serum 0.89 mg/dL 0.50-1.40 eGFR(CKD-EPI 2020) >90 mL/min >60 Sep 06, 2024 09:51 AM [facility] CBC Specimen Type: BLOOD No comment entered. Ordering Provider: JANET LENTZ Report Released Date/Time: Sep 01, 2024 12:06 PM Reporting Lab: [facility] [address] [facility] [address] Performing Lab: [facility] [address] [facility] [address] WBC 7.38 10*3/uL 4.50-11.00 RBC 5.30 10*6/uL 4.23-5.66 HGB 17.9 g/dL H 12.8-17 HCT 49.7 39.2-50.4 MCV 93.8 fL 82-99 MCHC 36.0 g/dL H 30.8-35.1 PLT 150 10*3/uL 140-360 RDW-CV 12.8 12.0-16.0 MCH 33.8 pg H 26.2-32.6 Sep 06, 2024 09:51 AM [facility] LIPID PANEL, NON FASTING Specimen Type: SERUM No comment entered. Ordering Provider: JANET LENTZ Report Released Date/Time: Sep 01, 2024 12:06 PM Reporting Lab: [address] [address] Performing Lab: [address] [address] CHOLESTEROL 154 mg/dL TRIGLYCERIDE 71 mg/dL 0-150 LDL calculated 67 mg/dL 0-129 CHOL/HDL 2.1 HDL CHOLESTEROL 73 mg/dL H 40-60 Sep 06, 2024 09:51 AM [facility] LIVER FUNCTION Specimen Type: SERUM No comment entered. Ordering Provider: JANET LENTZ Report Released Date/Time: Sep 01, 2024 12:06 PM Reporting Lab: [address] [address] Performing Lab: [facility] [address] [facility] [address] PROTEIN,TOTAL 7.1 g/dL 6.0-8.3 ALBUMIN 3.9 g/dL 3.5-5.0 ALKALINE PHOSPHATASE 116 U/L 40-150 AST 38 U/L H 5-34 ALT 29 U/L BILIRUBIN, TOTAL 1.2 mg/dL 0.2-1.2 BILIRUBIN, DIRECT 0.6 mg/dL H 0-0.5 Vital Signs: All taken on the encounter date This section contains inpatient and outpatient Vital Signs collected on the date of the Encounter. Date/Time Temperature Pulse Blood Pressure Respiratory Rate SP02 Pain Height Weight Body Mass Index Source Sep 14, 2024 08:51 AM 130/80 [facility] Sep 14, 2024 07:53 AM 98.3 9 148/79 20 90 0 68 201 31 [facility] Immunizations: All administered on the encounter date This section contains immunizations associated to the Encounter. Immunization Series Date Issued Reaction Comments COVID-19 (MODERNA), MRNA, LN P-S, PF, 50 MCG/0.5 ML (AGES 12+ YEARS) Sep 14, 2024 Social History: Smoking Status (Most current) [...] Current Smoking Status Comment Dinesh ity Sep 14, 2024 08:00 AM VA-TOBACCO USE ОЛЕГ RY DAY CIGARETTES [facility] Tobacco Use History This section includes a history of the smoking, or tobacco-related health factors, that were collected on or before the date of the Encounter. The data comes from the [place] facility where the Encounter took place. Date/Time Smoking Status/Tobacco Use Comment F acility Sep 14, 2024 08:00 AM [place]-TOBACCO SCREEN FOLLOW-UP [facility] Sep 14, 2024 08:00 AM VA-TOBACCO USE ADVICE [facility] Sep 14, 2024 08:00 AM VA-TOBACCO USE HORSER UP NO [facility] [place] [facility] Sep 14, 2024 08:00 AM VA-TOBACCO USE ОЛЕГ RY DAY CIGARETTES [facility] [place] [facility] Sep 14, 2024 08:00 AM VA-TOBACCO USE MED NO [facility] [place] [facility] Sep 04, 2023 01:14 PM VA-TOBACCO USE 30 YEARS OR MORE [facility] [place] [facility] Sep 04, 2023 01:14 PM VA-TOBACCO USE ADVICE [facility] [place] [facility] Sep 04, 2023 01:14 PM VA-TOBACCO USE HORSER UP NO [facility] [place] [facility] Sep 04, 2023 01:14 PM VA-TOBACCO USE MED NO [facility] [place] [facility] Sep 04, 2023 01:14 PM VA-TOBACCO USE WI 30 MIN OF WAKEUP [place] [facility] [place] [facility] Sep 04, 2023 01:14 PM VA-TOBACCO USER EVERY DAY [facility] [place] [facility] Oct 01, 2022 09:45 AM VA-TOBACCO DOESNT USE WI 30 MIN WAKEUP [place] [facility] [place] [facility] Oct 01, 2022 09:45 AM VA-TOBACCO USE 30 YEARS OR MORE [facility] [place] [facility] Oct 01, 2022 09:45 AM VA-TOBACCO USE ADVICE [facility] [place] [facility] Oct 01, 2022 09:45 AM VA-TOBACCO USE HORSER UP NO [facility] [place] [facility] Oct 01, 2022 09:45 AM VA-TOBACCO USE MED NO [facility] [place] [facility] Oct 01, 2022 09:45 AM VA-TOBACCO USER EVERY DAY [facility] [place] [facility] Sep 07, 2021 10:30 AM VA-TOBACCO USE 30 YEARS OR MORE [facility] [place] [facility] Sep 07, 2021 10:30 AM VA-TOBACCO USE ADVICE [facility] [place] [facility] Sep 07, 2021 10:30 AM VA-TOBACCO USE HORSER UP NO [facility] [place] [facility] Sep 07, 2021 10:30 AM VA-TOBACCO USE MED NO [facility] [place] [facility] Sep 07, 2021 10:30 AM VA-TOBACCO USE [place] 30 MIN OF WAKEUP [facility] [place] [facility] Sep 07, 2021 10:30 AM VA-TOBACCO USER EVERY DAY [facility] [place] [facility] Jun 08, 2020 09:00 AM VA-TOBACCO USE 30 YEARS OR MORE [facility] [place] [facility] Jun 08, 2020 09:00 AM VA-TOBACCO USE ADVICE [facility] [place] [facility] Jun 08, 2020 09:00 AM VA-TOBACCO USE HORSER UP NO [facility] [place] [facility] Jun 08, 2020 09:00 AM VA-TOBACCO USE MED NO [facility] [place] [facility] Jun 08, 2020 09:00 AM VA-TOBACCO USE [place] 30 MIN OF WAKEUP [facility] [place] [facility] Jun 08, 2020 09:00 AM VA-TOBACCO USER EVERY DAY [facility] [place] [facility] Feb 01, 2019 02:27 PM VA-TOBACCO USE 30 YEARS OR MORE [facility] [place] [facility] Feb 01, 2019 02:27 PM VA-TOBACCO USE ADVICE [facility] [place] [facility] Feb 01, 2019 02:27 PM VA-TOBACCO USE HORSER UP NO [facility] [place] [facility] Feb 01, 2019 02:27 PM VA-TOBACCO USE MED NO [facility] [place] [facility] Feb 01, 2019 02:27 PM VA-TOBACCO USE WI 30 MIN OF WAKEUP [facility] [place] [facility] Feb 01, 2019 02:27 PM VA-TOBACCO USER EVERY DAY [facility] [place] [facility] Apr 02, 2018 02:47 PM CURRENT SMOKER [facility] [place] [facility] Apr 02, 2018 02:47 PM V1-PT DECLINES REF TO TOBACCO CESS PRGM [facility] [place] [facility] Apr 02, 2018 02:47 PM V1-PT DECLINES TOB ACCO CESSATION MEDS [facility] [place] [facility] Apr 02, 2018 02:47 PM V1-PT THINKING ABO UT QUIT TOBACCO USE [facility] [place] [facility] Encounter Notes: All associated encounter notes This section contains the clinical notes associated to the Encounter. Date/Time Encounter Note(s) Provider Source Sep 14, 2024 10:00 AM PRIMARY CARE NURSE PRACTITIONER OUTPATIENT NOTE: LOCAL TITLE: NURSE PRACTITIONER OUTPATIENT NOTE STANDARD TITLE: PRIMARY CARE NURSE PRACTITIONER OUTPATIENT NOTE DATE OF NOTE: SEP 14, 2024@10:00 ENTRY DATE: SEP 14, 2024@10:00:50 AUTHOR: SHERLYN LENTZ COSIGNER: URGENCY: STATUS: COMPLETED Chief complaint: Patient is a 69 year old [place]. HPI: Pleasant male here to follow up. He reports increasing WILKINS. H/O COPD, he continues to smoke. Sx resolves with rest but much easier triggered with lesser exertion. He reports compliance with wixela and spiriva. On exam, he is no active distress though lung sounds are diminished bilat. Initial pox was 90, came up to 93 on room air. No fevers. Cough is mixed, baseline. I am going to treat with a course of prednisone and I am adding updraft treatments. He was educated on both. He is due for chest ct scan, ordered. I also advised consultation with [employer] scout, he is in agreement. I strongly advised him to consider tobacco cessation, from my discussion with him he is in the precontemplation stage. Allergies: HCTZ HYDROCHLOROTHIAZIDE The following VA and Non-VA meds were reconciled with patient. The patient was educated on the use of the medications including indication and side effects. Active and Recently Outpatient Medications (excluding Supplies): Active Outpatient Medications Status 1) ALBUTEROL 90MCG (CFC-F) 200D ORAL INHL INHALE 2 PUFFS BY ACTIVE MOUTH EVERY 4 HOURS NEEDED FOR BREATHING 2) ATORVASTATIN CALCIUM 40MG TAB TAKE ONE-HALF TABLET BY MOUTH ACTIVE ONCE DAILY FOR CHOLESTEROL 3) CALCIUM 200MG (CA CITRATE-950MG) TAB TAKE THREE TABLETS BY ACTIVE MOUTH TWICE DAILY Indication: FOR OSTEOPOROSIS 4) CHOLECALCIF 25MCG (D3-1,000UNIT) TAB TAKE ONE TABLET BY ACTIVE MOUTH ONCE DAILY FOR VITAMIN SUPPLEMENTATION Indication: FOR VITAMIN D DEFICIENCY 5) DEMECLOCYCLINE HCL 150MG TAB TAKE ONE TABLET BY MOUTH TWICE ACTIVE DAILY Indication: FOR INFECTION 6) FLUTICAS 250/SALMETEROL 50 INHL DISK 60 INHALE 1 PUFF BY ACTIVE MOUTH TWICE DAILY - RINSE MOUTH AFTER USE REPLACES SYMBICORT (BUDESONIDE/FORMOTEROL) 7) LEVOTHYROXINE NA (SYNTHROID) 88MCG TAB TAKE ONE TABLET BY ACTIVE MOUTH EVERY MORNING 30 MINUTES BEFORE BREAKFAST TAKE ON AN EMPTY STOMACH WITH A FULL GLASS OF WATER Indication: FOR THYROID 8) NAPROXEN 500MG TAB TAKE ONE TABLET BY MOUTH EVERY 12 HOURS ACTIVE NEEDED TAKE WITH FOOD; /INFLAMMATION/SWELLING Indication: FOR PAIN 9) PREDNISONE 20MG TAB TAKE ONE TABLET BY MOUTH ONCE DAILY ACTIVE Indication: FOR ASTHMA Pending Outpatient Medications Status 1) ALBUTEROL 90MCG (CFC-F) 200D ORAL INHL INHALE 2 PUFFS BY PENDING MOUTH EVERY 4 HOURS NEEDED FOR BREATHING 2) ALBUTEROL SO4 0.083% INHL 3ML INHALE 1 AMPULE IN NEBULIZER PENDING EVERY 6 HOURS NEEDED FOR BREATHING Indication: FOR BRONCHOSPASM 3) CALCIUM 200MG (CA CITRATE-950MG) TAB TAKE THREE TABLETS BY PENDING MOUTH TWICE DAILY Indication: FOR OSTEOPOROSIS 4) CHOLECALCIF 25MCG (D3-1,000UNIT) TAB TAKE ONE TABLET BY PENDING MOUTH ONCE DAILY FOR VITAMIN SUPPLEMENTATION Indication: FOR VITAMIN D DEFICIENCY 5) FLUTICAS 250/SALMETEROL 50 INHL DISK 60 INHALE 1 PUFF BY PENDING MOUTH TWICE DAILY - RINSE MOUTH AFTER USE REPLACES SYMBICORT (BUDESONIDE/FORMOTEROL) 6) LEVOTHYROXINE NA (SYNTHROID) 88MCG TAB TAKE ONE TABLET BY PENDING MOUTH EVERY MORNING 30 MINUTES BEFORE BREAKFAST TAKE ON AN EMPTY STOMACH WITH A FULL GLASS OF WATER Indication: FOR THYROID 7) LISINOPRIL 30MG TAB TAKE ONE TABLET BY MOUTH ONCE DAILY TO PENDING CONTROL BLOOD PRESSURE NOTE NEW TABLET STRENGTH 8) TIOTROPIUM 2.5MCG/ACTUAT 60D ORAL INHL INHALE 2 PUFFS BY PENDING MOUTH ONCE DAILY THIS REPLACES TIOTROPIUM HANDIHALER CAPSULES Inactive Outpatient Medications Status 1) LISINOPRIL 30MG TAB TAKE ONE TABLET BY MOUTH ONCE DAILY TO CONTROL BLOOD PRESSURE NOTE NEW TABLET STRENGTH 2) TIOTROPIUM 2.5MCG/ACTUAT 60D ORAL INHL INHALE 2 PUFFS BY MOUTH ONCE DAILY THIS REPLACES TIOTROPIUM HANDIHALER CAPSULES 19 Total Medications Review of Systems: Constitutional: (-)for Fevers, chills, weakness, nights sweats On examination: 98.3 F [36.8 C] (09/14/2024 07:53)130/80 (09/14/2024 08:51)9 (09/14/2024 07:53)20 (09/14/2024 07:53)0 (09/14/2024 07:53)BMI: 30.6201 lb [91.17 kg] (09/14/2024 07:53) [place] is alert and oriented X3 Neck: supple without masses, trachea midline, ln not palpable, no thyromegaly Cardiovasc: 2plus carotids without bruits, no JVD Heart Reguler rate and rhythm NL S1S2 no S3 or murmur ABD: Benign normal active bowel sounds no HSM no rebound or referred pain EXT: no clubbing, edema, or cyanosis All diagnostics from past month were reviewed with patient. Assessment/plan: Active problems - Computerized Problem List is the source for the followin. Hyponatremia - follows with endocrine. He reports drinking whiskey most days... We discussed the impact of this, i advised him to reduce this habit. He does have day when he has none and says he has no w/d symptoms. I explained resouces to assist him with this, he declines any referrals as he does not feel its problematic. 2. Multiple nodules of lung - due for imaging. 3. Osteoporosis - on supplements, follows endocrine. 4. Benign neoplasm of pituitary gland - stable, follows endocrine. 5. Hypothyroid - euthroid on levothyroxine. 6. Aneurysm of thoracic aorta - stable per imaging April 2024. 7. HTN - Hypertension - well controlled. 8. Hyperlipidemia - well controlled, continue statin. 9. Chronic obstructive lung disease - see above. 10. Tobacco user - see above. 11. Dyspnea - see above. Health Care Maintenance: covid booster given in clinic. Today I spent 50 minutes on some or all of the following: chart review, history, physical examination, treatment planning, education and counseling of the patient/family/care nurse rn, placing orders, communicating with other health care providers, and documentation in the electronic health record Follow up visit in 4 mos. Initial Lung Cancer Screen (Provider): Chest CT within 12 months outside of this [place] that assesses pulmonary nodules. Patient is not a current candidate for the lung cancer screening program. Date of Chest CT April 01, 2024 Results: nodules present Patient currently uses cigarettes and does not want assistance with smoking cessation at this time. Tobacco Use Follow-Up: Patient was advised to stop smoking and/or using other tobacco products. Advised patient that a combination of behavioral counseling and FDA-approved cessation medications is the most effective way to ensure their success in stopping to smoke and/or using other tobacco products. The patient was not interested in additional information about behavioral counseling and other support strategies discussed. Informed patient that medications can help with cravings and withdrawal symptoms, and they greatly increase the chances of successfully stopping your tobacco use. The patient was not interested in a prescription for tobacco cessation medications. Sexual Orientation: The patient thinks of their sexual orientation as: Straight or Heterosexual Medication Reconciliation: Outpatient: Has the patient been taking medications as documented in the EMLR? YES: The patient has been taking medications as documented in the EMLR. Essential Medication List for Review used to complete this medication reconciliation. INCLUDED IN THIS LIST: Alphabetical list of active outpatient prescriptions dispensed from this [place] (local) and dispensed from another [place] or [place] facility (remote) as well as [...] or non-VA provider. /lolly/ Sherlyn Lentz DNP, TWISTER HAND-BC, CNL Primary Care Nurse Practitioner Signed: 09/14/2024 10:20 SHERLYN LENTZ [place] [facility] Sep 14, 2024 07:57 AM PREVENTIVE MEDICINE NURSING NOTE: LOCAL TITLE: CLINICAL REMINDERS/NURSING STANDARD TITLE: PREVENTIVE MEDICINE NURSING NOTE DATE OF NOTE: SEP 14, 2024@07:57 ENTRY DATE: SEP 14, 2024@07:57:55 AUTHOR: ALONSO MCQUEEN EXP COSIGNER: URGENCY: STATUS: COMPLETED CLINICAL REMINDERS/NURSING Has ADDENDA Depression Screening: Perform PHQ-2 A PHQ-2 screen was performed. The score was 0 which is a negative screen for depression. Over the past two weeks, how often have you been bothered by the following problems? 1. Little interest or pleasure in doing things Not at all 2. Feeling down, depressed, or hopeless Not at all Tobacco Use Screening: The patient smokes cigarettes every day. The patient has never used other types of tobacco. /lolly/ Alonso Mcqueen, Health Manager [employer] [facility],PRIMARY CARE Signed: 09/14/2024 07:59 09/14/2024 ADDENDUM STATUS: COMPLETED COVID-19 Immunization: Moderna Monovalent (Spikevax) Administered: COVID-19 (MODERNA), MRNA, LNP-S, PF, 50 MCG/0.5 ML (AGES 12+ YEARS) Date Administered: Sep 14, 2024 08:00 Series: Booster Rechecker: [employer] Lot: [id number] Exp Date: March 05, 2025 [facility]: [id number] Admin Route/Site: INTRAMUSCULAR/RIGHT DELTOID Dosage: 0.5mL Vaccine Information Statement(s): COVID-19 MRNA VACCINE (12+ YRS) VIS Jul 22, 2024 (NIGERIAN) Order By: Policy Administered By: Dena Jade Vaccine administered without complications. /lolly/ Dena Jade MSN RN CNL Primary Care RN Signed: 09/14/2024 08:51 ALONSO MCQUEEN [facility]
--- OUTSIDE RECORDS SUMMARY | 2024-10-11 16:52 | XMS_ITS ---
Author Name [facility] [place] Address [address] [place] [id number] Care Team Providers Care Lineman Name Role Phone SHERLYN BRADLEY Primary Care Provider [facility] Insurance Providers: All historical and current [...] PART B Apr 05, 2020 PART B [id number] NIKOLECOCO MOCK PATIENT MEDICARE (WNR) MEDICARE (M) PART A Mar 06, 2019 PART A [id number] MIGUELITOCOCO ANDRIA PATIENT Selected Encounter This section includes the information on record at [place] for the Encounter. Date/Time Encounter Type Encounter Description Reason Pro vider Source Jul 16, 2024 02:40 PM Outpatient Encounter TELEPHONE/MEDICINE IHE Encounter Template Text not used by [place] Plan of Treatment: Future Appointments (+ 6 [...] 20 appointments. The data comes from all [place] treatment facilities. Appointment Date/Time Appointment Type Appointme nt Facility Name Jul 22, 2024 08:00 AM AM[place]ULATORY - [place]ICINE [place] [facility] [place] [facility] Sep 14, 2024 08:00 AM AMBULATORY - MEDICINE [place] [facility] [place] [facility] Oct 15, 2024 08:30 AM [facility] - NONE [facility] Lab Results: +/- 30 days of the encounter This section includes the Chemistry and Hematology Lab Results on record with [place] for the patient. Radiology Reports and Pathology Reports are provided separately, in subsequent sections. Lab Results This section contains the Chemistry/Hematology Results that were resulted 30 days before or 30 daysafter the date of the Encounter. Date/Time Source Result Type Result - Unit Interpretation Reference Range Comment Jul 14, 2024 09:10 AM [facility] COPEPTIN Specimen Type: SERUM Comment: REFERENCE RANGE: <= 13.7 pmol/L This test was developed and its analytical performance characteristics have been determined by [facility]. It has not been cleared or approved by FDA. This assay has been validated pursuant to the CLIA regulations and is used for clinical purposes. Test performed by [employer] [address] [place] [address] Tool Storage Attendant: Estela Barlow MD,PHD,PATSY Test Reported by [facility], [address] [place] [address] Seamus Joseph M.D., Ph.D., Director of Laboratories , CLIA [id number] TEST PERFORMED AT: , Ordering Provider: JEEVAN RILEY Report Released Date/Time: Jul 13, 2024 09:00 AM Reporting Lab: [facility] [address] [facility] [address] Performing Lab: [facility]TR[facility] [place] [facility] [address] [address] COPEPTIN 7.3 SEE BELOW Jul 14, 2024 09:10 AM [facility]USE[facility] OSMOLALITY (SERUM) Specimen Type: SERUM Comment: Manually entered by: RTO Ordering Provider: JEEVAN RILEY Report Released Date/Time: Jul 13, 2024 09:00 AM Reporting Lab: [facility] [place] [facility] [address] [facility] [address] Performing Lab: [facility]ITAL[facility] [address] [facility] [address] OSMOLALITY (SERUM) [phone] Jul 14, 2024 09:10 AM [facility] OSMOLALITY (URINE) Specimen Type: URINE Comment: Manually entered by: RTO Ordering Provider: JEEVAN RILEY Report Released Date/Time: Jul 13, 2024 09:00 AM Reporting Lab: [facility]ITAL[facility] [address] [facility] [address] Performing Lab: [facility]ITALUSEMA[facility] [address] [facility] [address] OSMOLALITY (URINE) [phone] Jul 14, 2024 09:10 AM [facility] SODIUM RANDOM URINE Specimen Type: URINE No comment entered. Ordering Provider: JEEVAN RILEY Report Released Date/Time: Jul 13, 2024 09:00 AM Reporting Lab: [facility]ITAL[facility] [address] [facility] [address] Performing Lab: [facility]ITALUSEMA[facility] [address] [facility] [address] SODIUM, URINE 53 mmol/L 20-400 Jul 14, 2024 09:10 AM [facility] BASIC METABOLIC PANEL (non-fasting) Specimen Type: SERUM No comment entered. Ordering Provider: JEEVAN RILEY Report Released Date/Time: Jul 13, 2024 09:00 AM Reporting Lab: [facility]ITAL[facility] [address] [facility] [address] Performing Lab: [facility]ITALUSEMA[facility] [address] [facility] [address] UREA NITROGEN 15 mg/dL 7-25 GLUCOSE 95 mg/dL 65-100 SODIUM 128 mmol/L L 135-145 POTASSIUM 4.9 mmol/L 3.5-5.0 CHLORIDE 88 mmol/L L 100-110 CO2 24 meq/L 20-30 CREATININE, Serum 0.91 mg/dL 0.50-1.40 eGFR(CKD-EPI 2020) 90 mL/min >60 Jul 12, 2024 01:01 PM [facility]MARYTRN [place] [facility] THYROID T4 FREE(FT4) (WROX) Specimen Type: SERUM No comment entered. Ordering Provider: JEEVAN RILEY Report Released Date/Time: Jul 09, 2024 10:34 AM Reporting Lab: [facility]ITALRL [facility]N [place] [facility] [address] [facility] [address] Performing Lab: [facility]ITALR[facility]MARYTRN [place] [facility] [address] [facility] [address] THYROID T4 FREE(FT4) (WROX) 1.38 ng/dL 0.6-1.6 Jul 12, 2024 01:01 PM [facility]TRN [facility] TSH Specimen Type: SERUM No comment entered. Ordering Provider: JEEVAN RILEY Report Released Date/Time: Jul 09, 2024 10:34 AM Reporting Lab: [facility]ITAL[facility] [place] [facility] [address] [facility] [address] Performing Lab: [facility]ITALR[facility]TRN [place] [facility] [address] [facility] [address] TSH 1.37 u[IU]/mL 0.35-5.00 Jul 12, 2024 01:01 PM [facility]ITALCH[facility] CALCIUM Specimen Type: SERUM No comment entered. Ordering Provider: JEEVAN RILEY Report Released Date/Time: Jul 09, 2024 10:34 AM Reporting Lab: [facility]ITALR[facility]MARYTR[facility] [place] [facility] [address] [facility] [address] Performing Lab: [facility]TR[facility] [place] [facility] [address] [facility] [address] CALCIUM 10.0 mg/dL 8.5-10.2 Jul 12, 2024 01:01 PM [facility]ERN [facility]ITALCHUSETS [facility] VITAMIN D (25-OH) Specimen Type: SERUM No comment entered. Ordering Provider: JEEVAN RILEY Report Released Date/Time: Jul 09, 2024 10:34 AM Reporting Lab: [facility] [address] [facility] [address] Performing Lab: [facility] [address] [facility] [address] VITAMIN D (25-OH) 44 ng/mL 20-50 Jul 12, 2024 01:01 PM [facility] BASIC METABOLIC PANEL (non-fasting) Specimen Type: SERUM No comment entered. Ordering Provider: JEEVAN RILEY Report Released Date/Time: Jul 09, 2024 10:50 AM Reporting Lab: [facility] [address] [facility] [address] Performing Lab: [facility] [address] [facility] [address] UREA NITROGEN 13 mg/dL 7-25 GLUCOSE 78 [...] and tobacco- related health factors from the [place] facility where the Encounter took place. Current Smoking Status This section includes the most current smoking, or tobacco-related health factor, from the [place] facility where the Encounter took place. Date/Time Current Smoking Status Comment Dinesh ity Sep 04, 2023 01:14 PM VA-TOBACCO USER EVERY DAY [facility] Tobacco Use History This section includes a history of the smoking, or tobacco-related health factors, that were collected on or before the date of the Encounter. The data comes from the [place] facility where the Encounter took place. 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 [facility] Sep 04, 2023 01:14 PM VA-TOBACCO USE MED NO [facility] [place] [facility] Sep 04, 2023 01:14 PM VA-TOBACCO USE [place] 30 MIN OF WAKEUP [facility] [place] [facility] Sep 04, 2023 01:14 PM VA-TOBACCO USER EVERY DAY [facility] [place] [facility] Oct 01, 2022 09:45 AM VA-TOBACCO DOESNT USE [place] 30 MIN WAKEUP [facility] [place] [facility] Oct 01, 2022 09:45 AM VA-TOBACCO USE 30 YEARS OR MORE [facility] [place] [facility] Oct 01, 2022 09:45 AM VA-TOBACCO USE ADVICE [facility] [place] [facility] Oct 01, 2022 09:45 AM 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 [facility] [place] [facility] Oct 01, 2022 09:45 AM VA-TOBACCO USE MED NO [facility] [place] [facility] Oct 01, 2022 09:45 AM VA-TOBACCO USER EVERY DAY [facility] [place] [facility] Sep 07, 2021 10:30 AM VA-TOBACCO USE 30 YEARS OR MORE [facility] [place] [facility] Sep 07, 2021 10:30 AM VA-TOBACCO USE ADVICE [facility] [place] [facility] Sep 07, 2021 10:30 AM 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 [facility] [place] [facility] Sep 07, 2021 10:30 AM VA-TOBACCO USE MED NO [facility] [place] [facility] Sep 07, 2021 10:30 AM VA-TOBACCO USE [place] 30 MIN OF WAKEUP [facility] [place] [facility] Sep 07, 2021 10:30 AM VA-TOBACCO USER EVERY DAY [facility] [place] [facility] Jun 08, 2020 09:00 AM VA-TOBACCO USE 30 YEARS OR MORE [facility] [place] [facility] Jun 08, 2020 09:00 AM VA-TOBACCO USE ADVICE [facility] [place] [facility] Jun 08, 2020 09:00 AM 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 [facility] [place] [facility] Jun 08, 2020 09:00 AM VA-TOBACCO USE MED NO [facility] [place] [facility] Jun 08, 2020 09:00 AM VA-TOBACCO USE [place] 30 MIN OF WAKEUP [facility] [place] [facility] Jun 08, 2020 09:00 AM VA-TOBACCO USER EVERY DAY [facility] [place] [facility] Feb 01, 2019 02:27 PM VA-TOBACCO USE 30 YEARS OR MORE [facility] Feb 01, 2019 02:27 PM VA-TOBACCO USE ADVICE [facility] Feb 01, 2019 02:27 PM 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 [facility] Feb 01, 2019 02:27 PM VA-TOBACCO USE MED NO [place] [facility] Feb 01, 2019 02:27 PM VA-TOBACCO USE [place] 30 MIN OF WAKEUP [place] [facility] [facility] Feb 01, 2019 02:27 PM VA-TOBACCO USER EVERY DAY [facility] Apr 02, 2018 02:47 PM CURRENT SMOKER [facility] Apr 02, 2018 02:47 PM V1-PT DECLINES REF TO TOBACCO CESS PRGM [place] [facility] [facility] Apr 02, 2018 02:47 PM V1-PT DECLINES TOB ACCO CESSATION MEDS [place] [facility] [place] [facility] Apr 02, 2018 02:47 PM V1-PT THINKING ABO UT QUIT TOBACCO USE [facility] Encounter Notes: All associated encounter notes This section contains the clinical notes associated to the Encounter. Date/Time Encounter Note(s) Provider Source Jul 16, 2024 02:40 PM PHYSICIAN NOTE: LOCAL TITLE: NOTE STANDARD TITLE: PHYSICIAN NOTE DATE OF NOTE: JUL 16, 2024@14:40 ENTRY DATE: JUL 16, 2024@14:40:27 AUTHOR: JEEVAN RILEY COSIGNER: URGENCY: STATUS: COMPLETED Hyponatremia Spoke with pt about all recent labs. He agrees to start demeclocycline. He will liberalize salt in his diet (quite restricted), keep fluids to 8 glasses a day or less, and have labs 2 weeks. 5 min telephone encounter. /lolly/ JEEVAN RILEY MD STAFF PHYSICIAN Signed: 07/16/2024 14:41 JEEVAN RILEY [facility]
--- OUTSIDE RECORDS SUMMARY | 2024-10-11 16:52 | XMS_ITS | Encounter Summary ---
Author Name [facility] [place] Address [address] [place] [address] Care Team Providers Care Financial Management Consultant Name Role Phone SHERLYN BRADLEY Primary Care Provider [facility] Insurance Providers: All historical and current [...] PART B Apr 05, 2020 PART B [id number] NIKOLECOCO MOCKNDER PATIENT MEDICARE ([place]) MEDICARE (M) PART A Mar 06, 2019 PART A [id number] MIGUELITOCOCO ANDRIA PATIENT Selected Encounter This section includes the information on record at [place] for the Encounter. Date/Time Encounter Type Encounter Description Reason Pro vider Source Apr 01, 2024 12:00 AM Outpatient Encounter EVENT (HISTORICAL) IHE Encounter Template Text not used by [place] Plan of Treatment: Future Appointments (+ 6 [...] 20 appointments. The data comes from all [place] treatment facilities. Appointment Date/Time Appointment Type Appointme nt Facility Name Jul 22, 2024 08:00 AM [facility] Sep 14, 2024 08:00 AM [facility]UL[facility] MEDICINE [facility] Lab Results: +/- 30 days of the encounter This section includes the Chemistry and Hematology Lab Results on record with [place] for the patient. Radiology Reports and Pathology Reports are provided separately, in subsequent sections. Lab Results This section contains the Chemistry/Hematology Results that were resulted 30 days before or 30 daysafter the date of the Encounter. Date/Time Source Result Type Result - Unit Interpretation Reference Range Comment Mar 12, 2024 07:31 AM [facility] LIPID PANEL, NON FASTING Specimen Type: SERUM No comment entered. Ordering Provider: JANET BRADLEY Report Released Date/Time: February 26, 2024 08:16 AM Reporting Lab: [facility] [address] [facility] [address] Performing Lab: [facility] [address] [facility] [address] CHOLESTEROL 161 mg/dL TRIGLYCERIDE 73 mg/dL 0-150 LDL calculated 75 mg/dL 0-129 CHOL/HDL 2.3 HDL CHOLESTEROL 71 mg/dL H 40-60 Mar 12, 2024 07:31 AM [facility] CBC Specimen Type: BLOOD No comment entered. Ordering Provider: JANET BRADLEY Report Released Date/Time: February 26, 2024 08:16 AM Reporting Lab: [facility] [address] [facility] [address] Performing Lab: [facility] [address] WBC 8.45 10*3/uL 4.50-11.00 RBC 5.21 10*6/uL 4.23-5.66 HGB 17.1 g/dL H 12.8-17 HCT 47.8 39.2-50.4 MCV 91.7 fL 82-99 MCHC 35.8 g/dL H 30.8-35.1 PLT 186 10*3/uL 140-360 RDW-CV 12.2 12.0-16.0 MCH 32.8 pg H 26.2-32.6 Mar 12, 2024 07:31 AM [facility] LIVER FUNCTION Specimen Type: SERUM No comment entered. Ordering Provider: JANET BRADLEY Report Released Date/Time: February 26, 2024 08:16 AM Reporting Lab: [address] [address] Performing Lab: [address] [address] PROTEIN,TOTAL 7.1 g/dL 6.0-8.3 ALBUMIN 4.4 g/dL 3.5-5.0 ALKALINE PHOSPHATASE 110 U/L 40-150 AST 48 U/L H 5-34 ALT 29 U/L BILIRUBIN, TOTAL 1.5 mg/dL H 0.2-1.2 BILIRUBIN, DIRECT 0.6 mg/dL H 0-0.5 Mar 12, 2024 07:31 AM [facility] FERRITIN Specimen Type: SERUM No comment entered. Ordering Provider: JANET BRADLEY Report Released Date/Time: Mar 15, 2024 10:26 AM Reporting Lab: [address] [address] Performing Lab: [address] [address] FERRITIN 683 ng/mL H 20-300 Social History: Smoking Status (Most current) and Tobacco Use (All prior to encounter date) This section includes the most current, and the historical, smoking and tobacco- related health factors from the [place] facility where the Encounter took place. Current Smoking Status This section includes the most current smoking, or tobacco-related health factor, from the [place] facility where the Encounter took place. Date/Time Current Smoking Status Comment Dinesh welch Sep 04, 2023 01:14 PM VA-TOBACCO USER EVERY DAY [facility] Tobacco Use History This section includes a history of the smoking, or tobacco-related health factors, that were collected on or before the date of the Encounter. The data comes from the [place] facility where the Encounter took place. 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 NO [facility] [place] [facility] Sep 04, 2023 01:14 PM VA-TOBACCO USE MED NO [facility] [place] [facility] Sep 04, 2023 01:14 PM VA-TOBACCO USE [place] 30 MIN OF WAKEUP [facility] [place] [facility] Sep 04, 2023 01:14 PM VA-TOBACCO USER EVERY DAY [facility] [place] [facility] Oct 01, 2022 09:45 AM VA-TOBACCO DOESNT USE [place] 30 MIN WAKEUP [facility] [place] [facility] Oct 01, 2022 09:45 AM VA-TOBACCO USE 30 YEARS OR MORE [facility] [place] [facility] Oct 01, 2022 09:45 AM VA-TOBACCO USE ADVICE [facility] [place] [facility] Oct 01, 2022 09:45 AM VA-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 USE COMPUTER 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 NO [facility] [place] [facility] Oct 01, 2022 09:45 AM VA-TOBACCO USE MED NO [facility] [place] [facility] Oct 01, 2022 09:45 AM VA-TOBACCO USER EVERY DAY [facility] [place] [facility] Sep 07, 2021 10:30 AM VA-TOBACCO USE 30 YEARS OR MORE [facility] [place] [facility] Sep 07, 2021 10:30 AM VA-TOBACCO USE ADVICE [facility] [place] [facility] Sep 07, 2021 10:30 AM VA-TOBACCO USE COMPUTER ANALYST NO [facility] [place] [facility] Sep 07, 2021 10:30 AM VA-TOBACCO USE MED NO [facility] [place] [facility] Sep 07, 2021 10:30 AM VA-TOBACCO USE [place] 30 MIN OF WAKEUP [facility] [place] [facility] Sep 07, 2021 10:30 AM VA-TOBACCO USER EVERY DAY [facility] [place] [facility] Jun 08, 2020 09:00 AM VA-TOBACCO USE 30 YEARS OR MORE [facility] [place] [facility] Jun 08, 2020 09:00 AM VA-TOBACCO USE ADVICE [facility] [place] [facility] Jun 08, 2020 09:00 AM VA-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 USE COMPUTER ANALYST NO [facility] [place] [facility] Jun 08, 2020 09:00 AM VA-TOBACCO USE MED NO [facility] [place] [facility] Jun 08, 2020 09:00 AM VA-TOBACCO USE [place] 30 MIN OF WAKEUP [facility] [place] [facility] Jun 08, 2020 09:00 AM VA-TOBACCO USER EVERY DAY [facility] [place] [facility] Feb 01, 2019 02:27 PM VA-TOBACCO USE 30 YEARS OR MORE [facility] [place] [facility] Feb 01, 2019 02:27 PM VA-TOBACCO USE ADVICE [facility] [place] [facility] Feb 01, 2019 02:27 PM VA-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 USE COMPUTER ANALYST NO [facility] [place] [facility] Feb 01, 2019 02:27 PM VA-TOBACCO USE MED NO [facility] [place] [facility] Feb 01, 2019 02:27 PM VA-TOBACCO USE [place] 30 MIN OF WAKEUP [facility] [place] [facility] Feb 01, 2019 02:27 PM VA-TOBACCO USER EVERY DAY [facility] [place] [facility] Apr 02, 2018 02:47 PM CURRENT SMOKER [facility] [place] [facility] Apr 02, 2018 02:47 PM V1-PT DECLINES REF TO TOBACCO CESS PRGM [facility] [place] [facility] Apr 02, 2018 02:47 PM V1-PT DECLINES TOB ACCO CESSATION MEDS [facility] [place] [facility] Apr 02, 2018 02:47 PM V1-PT THINKING ABO UT QUIT TOBACCO USE [facility] [place] [facility] Radiology Reports: +/- 30 days of the [...] the Encounter. The data comes from all [place] treatment facilities. Date/Time Radiology Report Provider Source Apr 01, 2024 08:[address] THORAX W/O CONT: KINGSTON RENDON [id number] -[id number] M Ex Date: APR 01, 2024@08:15 Req Phys: SHERLYN BRADLEY Loc: CWM/NO/PACT 7 (Req'g Loc) Img Loc: NHM/CT Service: [facility] , (Case [id number] COMPLETE) CT THORAX W/O CONT (CT Detailed) CPT:44266 Reason for Study: follow up Clinical History: [...] 06, 2024 Date Verified: APR 06, 2024 Bilingual Account Manager E-Sig: Report: CT [facility]OR[facility] W/O CONT HISTORY: follow up COMPARISON: CT of the chest from June 06, 2023. TECHNIQUE: Helical CT of the chest with multiplanar reformats, was performed at the local [place] facility. 1231 images were received by the [...] as above. READING PHYSICIAN: Junior Rolle MD -[id number] 04/06/2024 14:08 EDT [facility] National Teleradiology Program [phone] (For Medical Practitioner Use Only) Attention Patients / Veterans: If you have questions or concerns about these test results, please contact your ordering provider or primary care team. Primary Diagnostic Code: SIGNIFICANT ABNORMALITY, ATTN NEEDED Secondary Diagnostic Codes: INCIDENTAL LUNG NODULE(NONSCREENING) Primary Interpreting Staff: RADIOLOGY,OUTSIDE SERVICE, Staff Physician / RADIOLOGY,OUTSIDE SERVICE [place] [facility] [facility]
--- OUTSIDE RECORDS SUMMARY | 2024-10-11 16:52 | XMS_ITS | Encounter Summary ---
Author Name [facility] [place] [facility] [place] [place] Address [address] [place] [id number] Care Team Providers Care Centrifuge Separator Operator Name Role Phone SHERLYN BRADLEY Primary Care Provider [facility] Insurance Providers: All [...] PART B Apr 05, 2020 PART B [id number] MIGUELITOCOCO FRANKLINNDER PATIENT MEDICARE (WNR) MEDICARE (M) PART A Mar 06, 2019 PART A [id number] COCO FARLEYER PATIENT Selected Encounter This section includes the information on record at [place] for the Encounter. Date/Time Encounter Type Encounter Description Reason Provider Source Jul 22, 2024 08:00 AM IMMUNIZATION ADMIN GENERAL INTERNAL MEDICINE ICD-10-CM E03.9 Hypothyroidism, unspecified YANIQUE ZHANG Nathaniel Encounter Template Text not used by [facility] Assessments - Encounter Diagnoses This section includes the primary and secondary diagnoses documented for the Encounter. Date/Time Primary/Secondary Diagnosis Diagnosis Name Provider Source Jul 22, 2024 08:01 AM PRIMARY Hypothyroidism, unspecified YANIQUE ZHANG [facility] Jul 22, 2024 08:01 AM SECONDARY Encounter for immunization YANIQUE ZHANG [facility] Plan of Treatment: Future Appointments (+ 6 months) and Future Tests (+/- 45 days) The Plan of Treatment section includes future care activities for the patient from all [place] treatmentfacilities. This section includes future appointments and future orders which are active, pending or scheduled. Future Appointments This section includes appointments that were scheduled to occur 6 months from the date of the Encounter, up to a maximum of 20 appointments. The data comes from all [place] treatment facilities. Appointment Date/Time Appointment Type Appointme nt Facility Name Sep 14, 2024 08:00 AM AMBULATORY - MEDICINE [facility] Oct 15, 2024 08:30 AM [facility]ORY - [facility] Jan 20, 2025 08:00 AM AMBULATORY - MEDICINE [facility] Lab Results: +/- 30 days of the encounter This section includes the Chemistry and Hematology Lab Results on record with [place] for the patient. Radiology Reports and Pathology Reports are provided separately, in subsequent sections. Lab Results This section contains the Chemistry/Hematology Results that were resulted 30 days before or 30 daysafter the date of the Encounter. Date/Time Source Result Type Result - Unit Interpretation Reference Range Comment Jul 14, 2024 09:10 AM [facility] COPEPTIN Specimen Type: SERUM Comment: REFERENCE RANGE: <= 13.7 pmol/L This test was developed and its analytical performance characteristics have been determined by [employer]. It has not been cleared or approved by FDA. This assay has been validated pursuant to the CLIA regulations and is used for clinical purposes. Test performed by [employer] [address] [place] [address] Dry Drug Worker: Estela Barlow MD,PHD,PATSY Test Reported by [facility], [employer] [place], [address] [place], [place] Seamus Joseph M.D., Ph.D., Director of Laboratories , CLIA [id number] TEST PERFORMED AT: , Ordering Provider: JEEVAN RILEY Report Released Date/Time: Jul 13, 2024 09:00 AM Reporting Lab[facility] [place] [facility] [address] [facility] [address] Performing Lab: [facility] [place] [facility] [address] [address] COPEPTIN 7.3 SEE BELOW Jul 14, 2024 09:10 AM [facility] OSMOLALITY (SERUM) Specimen Type: SERUM Comment: Manually entered by: RTO Ordering Provider: JEEVAN RILEY Report Released Date/Time: Jul 13, 2024 09:00 AM Reporting [facility] [address] [facility] [address] Performing Lab: [facility] [address] [facility] [address] OSMOLALITY (SERUM) [phone] Jul 14, 2024 09:10 AM [facility] OSMOLALITY (URINE) Specimen Type: URINE Comment: Manually entered by: RTO Ordering Provider: JEEVAN RILEY Report Released Date/Time: Jul 13, 2024 09:00 AM Reporting Lab: [facility] [place] [facility] [address] [facility] [address] Performing Lab: [facility] [address] [facility] [address] OSMOLALITY (URINE) [phone] Jul 14, 2024 09:10 AM [facility] SODIUM RANDOM URINE Specimen Type: URINE No comment entered. Ordering Provider: JEEVAN RILEY Report Released Date/Time: Jul 13, 2024 09:00 AM Reporting Lab: [facility] [place] [facility] [address] [facility] [address] Performing Lab: [facility] [address] [facility] [address] SODIUM, URINE 53 mmol/L 20-400 Jul 14, 2024 09:10 AM [facility] BASIC METABOLIC PANEL (non-fasting) Specimen Type: SERUM No comment entered. Ordering Provider: JEEVAN RILEY Report Released Date/Time: Jul 13, 2024 09:00 AM Reporting Lab: [facility] [address] [facility] [address] Performing Lab: [facility] [address] [facility] [address] UREA NITROGEN 15 mg/dL 7-25 GLUCOSE 95 mg/dL 65-100 SODIUM 128 mmol/L L 135-145 POTASSIUM 4.9 mmol/L 3.5-5.0 CHLORIDE 88 mmol/L L 100-110 CO2 24 meq/L 20-30 CREATININE, Serum 0.91 mg/dL 0.50-1.40 eGFR(CKD-EPI 2020) 90 mL/min >60 Jul 12, 2024 01:01 PM [facility] THYROID T4 FREE(FT4) (WROX) Specimen Type: SERUM No comment entered. Ordering Provider: JEEVAN RILEY Report Released Date/Time: Jul 09, 2024 10:34 AM Reporting Lab: [facility] [address] [facility] [address] Performing Lab: [facility] [address] [facility] [address] THYROID T4 FREE(FT4) (WROX) 1.38 ng/dL 0.6-1.6 Jul 12, 2024 01:01 PM [facility] TSH Specimen Type: SERUM No comment entered. Ordering Provider: JEEVAN RILEY Report Released Date/Time: Jul 09, 2024 10:34 AM Reporting Lab: [facility] [place] [facility] [address] [facility] [address] Performing Lab: [facility]ITALN [facility] [address] [facility] [address] TSH 1.37 u[IU]/mL 0.35-5.00 Jul 12, 2024 01:01 PM [facility] VITAMIN D (25-[place]) Specimen Type: SERUM No comment entered. Ordering Provider: JEEVAN RILEY Report Released Date/Time: Jul 09, 2024 10:34 AM Reporting Lab: [facility]N [facility] [address] [facility] [address] Performing Lab: [facility] [address] [facility] [address] VITAMIN D (25-OH) 44 ng/mL 20-50 Jul 12, 2024 01:01 PM [facility] CALCIUM Specimen Type: SERUM No comment entered. Ordering Provider: JEEVAN RILEY Report Released Date/Time: Jul 09, 2024 10:34 AM Reporting Lab: [address] [address] Performing Lab: [address] [address] CALCIUM 10.0 mg/dL 8.5-10.2 Jul 12, 2024 01:01 PM [facility] BASIC METABOLIC PANEL (non-fasting) Specimen Type: SERUM No comment entered. Ordering Provider: JEEVAN RILEY Report Released Date/Time: Jul 09, 2024 10:50 AM Reporting Lab: [facility] [address] [facility] [address] Performing Lab: [address] [address] UREA NITROGEN 13 mg/dL 7-25 GLUCOSE 78 [...] Pain Height Weight Body Mass Index Source Jul 22, 2024 07:54 AM 97.9 100 138/80 16 91 0 195 30 [facility] Immunizations: All administered on the encounter date This section contains immunizations associated to the Encounter. Immunization Series Date Issued Reaction Comments INFLUENZA, HIGH-DOSE, TRIVALENT, PF Jul 22 Social History: Smoking Status (Most current) and Tobacco Use (All prior to encounter date) This section includes the most current, and the historical, smoking and tobacco- related health factors from the [place] facility where the Encounter took place. Current Smoking Status This section includes the most current smoking, or tobacco-related health factor, from the [place] facility where the Encounter took place. Date/Time Current Smoking Status Comment Facil ity Sep 04, 2023 01:14 PM [facility]-TOBACCO USER EVERY DAY [facility] [place] [facility] Tobacco Use History This section includes a history of the smoking, or tobacco-related health factors, that were collected on or before the date of the Encounter. The data comes from the [place] facility where the Encounter took place. Date/Time Smoking Status/Tobacco Use Comment F acility Sep 04, 2023 01:14 PM VA-TOBACCO USE ADVICE [facility] [place] [facility] Sep 04, 2023 01:14 PM VA-TOBACCO USE AGRICULTURAL APPRAISER NO [facility] [place] [facility] Sep 04, 2023 01:14 PM VA-TOBACCO USE MED NO [facility] [place] [facility] Sep 04, 2023 01:14 PM VA-TOBACCO USE WI 30 MIN OF WAKEUP [facility] [place] [facility] Sep 04, 2023 01:14 PM VA-TOBACCO USER EVERY DAY [facility] [place] [facility] Oct 01, 2022 09:45 AM VA-TOBACCO DOESNT USE WI 30 MIN WAKEUP [facility] [place] [facility] Oct 01, 2022 09:45 AM VA-TOBACCO USE 30 YEARS OR MORE [facility] [place] [facility] Oct 01, 2022 09:45 AM VA-TOBACCO USE ADVICE [facility] [place] [facility] Oct 01, 2022 09:45 AM VA-TOBACCO USE AGRICULTURAL APPRAISER NO [facility] [place] [facility] Oct 01, 2022 09:45 AM VA-TOBACCO USE MED NO [facility] [place] [facility] Oct 01, 2022 09:45 AM VA-TOBACCO USER EVERY DAY [facility] [place] [facility] Sep 07, 2021 10:30 AM VA-TOBACCO USE 30 YEARS OR MORE [facility] [place] [facility] Sep 07, 2021 10:30 AM VA-TOBACCO USE ADVICE [facility] [place] [facility] Sep 07, 2021 10:30 AM VA-TOBACCO USE AGRICULTURAL APPRAISER NO [facility] [place] [facility] Sep 07, 2021 10:30 AM VA-TOBACCO USE MED NO [facility] [place] [facility] Sep 07, 2021 10:30 AM VA-TOBACCO USE WI 30 MIN OF WAKEUP [facility] [place] [facility] Sep 07, 2021 10:30 AM VA-TOBACCO USER EVERY DAY [facility] [place] [facility] Jun 08, 2020 09:00 AM VA-TOBACCO USE 30 YEARS OR MORE [facility] [place] [facility] Jun 08, 2020 09:00 AM VA-TOBACCO USE ADVICE [facility] [place] [facility] Jun 08, 2020 09:00 AM VA-TOBACCO USE AGRICULTURAL APPRAISER NO [facility] [place] [facility] Jun 08, 2020 09:00 AM VA-TOBACCO USE MED NO [facility] [place] [facility] Jun 08, 2020 09:00 AM VA-TOBACCO USE WI 30 MIN OF WAKEUP [facility] [place] [facility] Jun 08, 2020 09:00 AM VA-TOBACCO USER EVERY DAY [facility] [place] [facility] Feb 01, 2019 02:27 PM VA-TOBACCO USE 30 YEARS OR MORE [facility] [place] [facility] Feb 01, 2019 02:27 PM VA-TOBACCO USE ADVICE [facility] [place] [facility] Feb 01, 2019 02:27 PM VA-TOBACCO USE AGRICULTURAL APPRAISER NO [facility] [place] [facility] Feb 01, 2019 02:27 PM VA-TOBACCO USE MED NO [facility] [place] [facility] Feb 01, 2019 02:27 PM VA-TOBACCO USE WI 30 MIN OF WAKEUP [facility] [place] [facility] Feb 01, 2019 02:27 PM VA-TOBACCO USER EVERY DAY [facility] [place] [facility] Apr 02, 2018 02:47 PM CURRENT SMOKER [facility] [place] [facility] Apr 02, 2018 02:47 PM V1-PT DECLINES REF TO TOBACCO CESS PRGM [facility] [place] [facility] Apr 02, 2018 02:47 PM V1-PT DECLINES TOB ACCO CESSATION MEDS [facility] Apr 02, 2018 02:47 PM V1-PT THINKING ABO UT QUIT TOBACCO USE [facility] Encounter Notes: All associated encounter notes This section contains the clinical notes associated to the Encounter. Date/Time Encounter Note(s) Provider Source Jul 22, 2024 08:00 AM PREVENTIVE MEDICIN E NURSING NOTE: LOCAL TITLE: CLINICAL REMINDERS/NURSING STANDARD TITLE: PREVENTIVE MEDICINE NURSING NOTE DATE OF NOTE: JUL 22, 2024@08:00 ENTRY DATE: JUL 22, 2024@08:00:20 AUTHOR: YANIQUE ZHANG EXP COSIGNER: URGENCY: STATUS: COMPLETED Influenza Immunization: Influenza, High-Dose, Trivalent, Preservative Free (Fluzone-Syringe) Administered: INFLUENZA, HIGH-DOSE, TRIVALENT, PF Date Administered: Jul 22, 2024 08:00 Series: Complete Ship Loader: [employer] Lot: [id number] Exp Date: Apr 04, 2025 ND: [id number] Admin Route/Site: INTRAMUSCULAR/LEFT DELTOID Dosage: 0.5mL Vaccine Information Statement(s): INFLUENZA(FLU) VACC(INACTIVATED OR RECOMBINANT)VIS May 11, 2021 (SERBIAN) Order By: Policy Administered By: Yanique Zhang The Influenza Vaccine Information Statement (VIS) was reviewed with the patient/caregiver which lists the benefits and risks of the vaccine and the risks of not receiving the Influenza vaccine. The patient/caregiver denied any prior severe reaction to this vaccine or its components or a severe allergic reaction, such as anaphylaxis, to any vaccine or any injectable therapy. The patient/caregiver gave verbal consent to receive the vaccine. /lolly/ YANIQUE ZHANG RN Signed: 07/22/2024 08:01 YANIQUE ZHANG [facility]
--- OUTSIDE RECORDS SUMMARY | 2024-10-11 16:52 | XMS_ITS ---
Author Name [facility] [place] Organization [place] Address [address] [place] [address] Care Team Providers Care Scheduling Manager Name Role Phone SHERLYN BRADLEY Primary Care Provider [facility] [...] PART B Apr 05, 2020 PART B [id number] COCO FARLEY PATIENT MEDICARE (WNR) MEDICARE (M) PART A Mar 06, 2019 PART A [id number] COCO FARLEY PATIENT Selected Encounter This section includes the information on record at [place] for the Encounter. Date/Time Encounter Type Encounter Description Reason Provider Source Sep 17, 2024 08:08 AM HC PRO PHONE CALL 11-20 MIN TELEPHONE PRIMARY CARE ICD-10-CM J44.9 Chronic obstructive pulmonary disease, unspecified OWEN RUIZ Encounter Template Text not used by [facility] Assessments - Encounter Diagnoses This section includes the primary and secondary diagnoses documented for the Encounter. Date/Time Primary/Secondary Diagnosis Diagnosis Name Provider Source Sep 17, 2024 08:08 AM PRIMARY Chronic obstructive pulmonary disease, unspecified OWEN RUIZ [facility] Plan of Treatment: Future Appointments (+ 6 months) and Future Tests (+/- 45 days) The Plan of Treatment section includes future care activities for the patient from all [place] treatmentfacilities. This section includes future appointments and future orders which are active, pending or scheduled. Future Appointments This section includes appointments that were scheduled to occur 6 months from the date of the Encounter, up to a maximum of 20 appointments. The data comes from all [place] treatment facilities. Appointment Date/Time Appointment Type Appointme nt Facility Name Oct 15, 2024 08:30 AM AMBULATORY - NONE [facility] Jan 20, 2025 08:00 AM AMBULATORY - MEDICINE [facility] Active, Pending, and Scheduled Orders This section includes a listing of several types of active, pending, and scheduled orders, including clinic medications orders, diagnostic test orders, procedure orders and consult orders; where the start date of the order is 45 days before the date of the Encounter or 45 days after the date of theEncounter. The data comes from all [facility] facilities. Test Date/Time Test Type Test Details Facility Name Sep 14, 2024 08:27 AM Consult Order COMMUNITY CARE-PULMONARY Cons Dance Hall Host/Hostess's Choice [facility] Oct 15, 2024 08:30 AM Imaging - CT Scan Order CT THORAX W/O CONT [facility] Lab Results: +/- 30 days of the encounter This section includes the Chemistry and Hematology Lab Results on record with [place] for the patient. Radiology Reports and Pathology Reports are provided separately, in subsequent sections. Lab Results This section contains the Chemistry/Hematology Results that were resulted 30 days before or 30 daysafter the date of the Encounter. Date/Time Source Result Type Result - Unit Interpretation Reference Range Comment Sep 06, 2024 09:52 AM [facility] BASIC METABOLIC PANEL (non-fasting) Specimen Type: SERUM No comment entered. Ordering Provider: JEEVAN RILEY Report Released Date/Time: Jul 16, 2024 02:39 PM Reporting Lab: [address] [address] Performing Lab: [facility] [address] [facility] [address] UREA NITROGEN 16 mg/dL 7-25 GLUCOSE 87 mg/dL 65-100 SODIUM 137 mmol/L 135-145 POTASSIUM 4.6 mmol/L 3.5-5.0 CHLORIDE 97 mmol/L L 100-110 CO2 27 meq/L 20-30 CREATININE, Serum 0.89 mg/dL 0.50-1.40 eGFR(CKD-EPI 2020) >90 mL/min >60 Sep 06, 2024 09:51 AM [facility] CBC Specimen Type: BLOOD No comment entered. Ordering Provider: JANET BRADLEY Report Released Date/Time: Sep 01, 2024 12:06 PM Reporting Lab: [facility] [address] [facility] [address] Performing Lab: [address] [address] WBC 7.38 10*3/uL 4.50-11.00 RBC 5.30 10*6/uL 4.23-5.66 HGB 17.9 g/dL H 12.8-17 HCT 49.7 39.2-50.4 MCV 93.8 fL 82-99 MCHC 36.0 g/dL H 30.8-35.1 PLT 150 10*3/uL 140-360 RDW-CV 12.8 12.0-16.0 MCH 33.8 pg H 26.2-32.6 Sep 06, 2024 09:51 AM [facility] LIPID PANEL, NON FASTING Specimen Type: SERUM No comment entered. Ordering Provider: JANET BRADLEY Report Released Date/Time: Sep 01, 2024 12:06 PM Reporting Lab: [address] [address] Performing Lab: [address] [address] CHOLESTEROL 154 mg/dL TRIGLYCERIDE 71 mg/dL 0-150 LDL calculated 67 mg/dL 0-129 CHOL/HDL 2.1 HDL CHOLESTEROL 73 mg/dL H 40-60 Sep 06, 2024 09:51 AM [facility] LIVER FUNCTION Specimen Type: SERUM No comment entered. Ordering Provider: JANET BRADLEY Report Released Date/Time: Sep 01, 2024 12:06 PM Reporting Lab: [facility] [address] [facility] [address] Performing Lab: [facility] [address] [facility] [address] PROTEIN,TOTAL 7.1 g/dL 6.0-8.3 ALBUMIN 3.9 g/dL 3.5-5.0 ALKALINE PHOSPHATASE 116 U/L 40-150 AST 38 U/L H 5-34 ALT 29 U/L BILIRUBIN, TOTAL 1.2 mg/dL 0.2-1.2 BILIRUBIN, DIRECT 0.6 mg/dL H 0-0.5 Social History: Smoking Status (Most current) and Tobacco Use (All prior to encounter date) This section includes the most current, and the historical, smoking and tobacco- related health factors from the [place] facility where the Encounter took place. Current Smoking Status This section includes the most current smoking, or tobacco-related health factor, from the [place] facility where the Encounter took place. Date/Time Current Smoking Status Comment Facil ity Sep 14, 2024 08:00 AM VA-TOBACCO USE О[facility]ЕГ [facility] Tobacco Use History This section includes a history of the smoking, or tobacco-related health factors, that were collected on or before the date of the Encounter. The data comes from the [place] facility where the Encounter took place. Date/Time Smoking Status/Tobacco Use Comment F acility Sep 14, 2024 08:00 AM VA-TOBACCO SCREEN [facility]LLOW[facility]UP [facility] [place] [facility] Sep 14, 2024 08:00 AM VA-TOBACCO USE ADVICE [place] [facility] Sep 14, 2024 08:00 AM VA-TOBACCO USE PRESS OPERATOR HELPER NO [place] [facility] [facility] Sep 14, 2024 08:00 AM VA-TOBACCO USE ОЛЕГ RY DAY CIGARETTES [facility] Sep 14, 2024 08:00 AM VA-TOBACCO USE MED NO [facility] Sep 04, 2023 01:14 PM VA-TOBACCO USE 30 YEARS OR MORE [facility] [place] [facility] Sep 04, 2023 01:14 PM VA-TOBACCO USE ADVICE [facility] [place] [facility] Sep 04, 2023 01:14 PM VA-TOBACCO USE PRESS OPERATOR HELPER NO [facility] [facility] Sep 04, 2023 01:14 PM VA-TOBACCO USE MED NO [facility] [place] [facility] Sep 04, 2023 01:14 PM VA-TOBACCO USE [place] 30 MIN OF WAKEUP [facility] [place] [facility] Sep 04, 2023 01:14 PM VA-TOBACCO USER EVERY DAY [facility] [place] [facility] Oct 01, 2022 09:45 AM VA-TOBACCO DOESNT USE WI 30 MIN WAKEUP [facility] [place] [facility] Oct 01, 2022 09:45 AM VA-TOBACCO USE 30 YEARS OR MORE [facility] [place] [facility] Oct 01, 2022 09:45 AM VA-TOBACCO USE ADVICE [facility] [place] [facility] Oct 01, 2022 09:45 AM VA-TOBACCO USE PRESS OPERATOR HELPER NO [facility] [facility] Oct 01, 2022 09:45 AM VA-TOBACCO USE MED NO [facility] [place] [facility] Oct 01, 2022 09:45 AM VA-TOBACCO USER EVERY DAY [facility] [place] [facility] Sep 07, 2021 10:30 AM VA-TOBACCO USE 30 YEARS OR MORE [facility] [place] [facility] Sep 07, 2021 10:30 AM VA-TOBACCO USE ADVICE [facility] [place] [facility] Sep 07, 2021 10:30 AM VA-TOBACCO USE PRESS OPERATOR HELPER NO [facility] [facility] Sep 07, 2021 10:30 AM VA-TOBACCO USE MED NO [facility] [place] [facility] Sep 07, 2021 10:30 AM VA-TOBACCO USE [place] 30 MIN OF WAKEUP [facility] [facility] Sep 07, 2021 10:30 AM VA-TOBACCO USER EVERY DAY [facility] [facility] Jun 08, 2020 09:00 AM VA-TOBACCO USE 30 YEARS OR MORE [facility] [place] [facility] Jun 08, 2020 09:00 AM VA-TOBACCO USE ADVICE [facility] [place] [facility] Jun 08, 2020 09:00 AM VA-TOBACCO USE PRESS OPERATOR HELPER NO [facility] [facility] Jun 08, 2020 09:00 AM VA-TOBACCO USE MED NO [facility] [facility] Jun 08, 2020 09:00 AM VA-TOBACCO USE [place] 30 MIN OF WAKEUP [facility] [place] [facility] Jun 08, 2020 09:00 AM VA-TOBACCO USER EVERY DAY [facility] [facility] Feb 01, 2019 02:27 PM VA-TOBACCO USE 30 YEARS OR MORE [facility] [place] [facility] Feb 01, 2019 02:27 PM VA-TOBACCO USE ADVICE [facility] [facility] Feb 01, 2019 02:27 PM VA-TOBACCO USE PRESS OPERATOR HELPER NO [facility] [place] [facility] Feb 01, 2019 02:27 PM VA-TOBACCO USE MED NO [facility] [facility] Feb 01, 2019 02:27 PM VA-TOBACCO USE [place] 30 MIN OF WAKEUP [facility] [facility] Feb 01, 2019 02:27 PM VA-TOBACCO USER EVERY DAY [facility] [place] [facility] Apr 02, 2018 02:47 PM CURRENT SMOKER VA C [facility]TRL [facility] [place] [facility] Apr 02, 2018 02:47 PM V1-PT DECLINES REF TO TOBACCO CESS PRGM [facility] [place] [facility] Apr 02, 2018 02:47 PM V1-PT DECLINES TOB ACCO CESSATION MEDS [facility] [place] [facility] Apr 02, 2018 02:47 PM V1-PT THINKING ABO UT QUIT TOBACCO USE [facility] [place] [facility] Encounter Notes: All associated encounter notes This section contains the clinical notes associated to the Encounter. Date/Time Encounter Note(s) Provider Source Sep 17, 2024 08:08 AM RESPIRATORY THERAP Y CONSULT: LOCAL TITLE: CONSULT REPORT/RESPIRATORY THERAPY STANDARD TITLE: RESPIRATORY THERAPY CONSULT DATE OF NOTE: SEP 17, 2024@08:08 ENTRY DATE: SEP 17, 2024@08:08:20 AUTHOR: ITA RUIZ EXP COSIGNER: URGENCY: STATUS: COMPLETED Telephone Coding and Documentation: Diagnosis: COPD Actual time spent with Patient via telephone: 15 minutes. was called about his consult for a new nebulizer compressor. He was ordered a tabletop nebulizer compressor, a portable compressor, 5 filters and 10 neb kits from [facility]. We reviewed how to use the device, how often to change the kits and filters, and how to keep things clean between treatments. He was sent written cleaning instructions, contact information for this clinic and will call when he is ready for more supplies. /lolly/ ITA RUIZ BA, INCIDENT RESPONSE ANALYST, RPFT RESPIRATORY THERAPIST Signed: 09/17/2024 08:09 ITA RUIZ [place] [facility] [facility]
--- OUTSIDE RECORDS SUMMARY | 2024-10-11 16:52 | XMS_ITS | Encounter Summary ---
Author Name [facility] [place] Organization [place] Address [address] [place] [address] Care Team Providers Care Travel Journalist Name Role Phone SHERLYN LENTZ [facility] Providers: All historical and current Section [...] PART B Apr 05, 2020 PART B [id number] COCO FARLEY PATIENT MEDICARE (WNR) MEDICARE ([place]) PART A Mar 06, 2019 PART A [id number] COCO FARLEY PATIENT Selected Encounter This section includes the information on record at [place] for the Encounter. Date/Time Encounter Type Encounter Description Reason Pro vider Source Sep 14, 2024 02:35 PM Outpatient Encounter ADMIN PAT ACTIVTIES (MASNONCT) IHE Encounter Template Text not used by [place] Plan of Treatment: Future Appointments (+ 6 [...] 20 appointments. The data comes from all [facility] facilities. Appointment Date/Time Appointment Type Appointme nt Facility Name Oct 15, 2024 08:30 AM AMBULATORY - NONE [facility] Jan 20, 2025 08:00 AM AMBULATORY - MEDICINE [facility] Active, Pending, and Scheduled Orders This section includes a listing of several types of active, pending, and scheduled orders, including clinic medications orders, diagnostic test orders, procedure orders and consult orders; where the start date of the order is 45 days before the date of the Encounter or 45 days after the date of theEncounter. The data comes from all [facility]. Test Date/Time Test Type Test Details Facility Name Sep 14, 2024 08:27 AM Consult Order COMMUNITY CARE-PULMONARY Cons Butter Maker's Choice [facility] Oct 15, 2024 08:30 AM Imaging - CT Scan Order CT THORAX W/O CONT [facility] Lab Results: +/- 30 days of the encounter This section includes the Chemistry and Hematology Lab Results on record with [place] for the patient. Radiology Reports and Pathology Reports are provided separately, in subsequent sections. Lab Results This section contains the Chemistry/Hematology Results that were resulted 30 days before or 30 daysafter the date of the Encounter. Date/Time Source Result Type Result - Unit Interpretation Reference Range Comment Sep 06, 2024 09:52 AM [facility] BASIC METABOLIC PANEL (non-fasting) Specimen Type: SERUM No comment entered. Ordering Provider: JEEVAN RILEY Report Released Date/Time: Jul 16, 2024 02:39 PM Reporting Lab: [facility] [address] [facility] [address] Performing Lab: [facility] [address] [facility] [address] UREA NITROGEN 16 mg/dL 7-25 GLUCOSE 87 mg/dL 65-100 SODIUM 137 mmol/L 135-145 POTASSIUM 4.6 mmol/L 3.5-5.0 CHLORIDE 97 mmol/L L 100-110 CO2 27 meq/L 20-30 CREATININE, Serum 0.89 mg/dL 0.50-1.40 eGFR(CKD-EPI 2020) >90 mL/min >60 Sep 06, 2024 09:51 AM [facility] CBC Specimen Type: BLOOD No comment entered. Ordering Provider: JANET LENTZ Report Released Date/Time: Sep 01, 2024 12:06 PM Reporting Lab: [facility] [address] [facility] [address] Performing Lab: [facility] [address] [facility] [address] WBC 7.38 10*3/uL 4.50-11.00 RBC 5.30 10*6/uL 4.23-5.66 HGB 17.9 g/dL H 12.8-17 HCT 49.7 39.2-50.4 MCV 93.8 fL 82-99 MCHC 36.0 g/dL H 30.8-35.1 PLT 150 10*3/uL 140-360 RDW-CV 12.8 12.0-16.0 MCH 33.8 pg H 26.2-32.6 Sep 06, 2024 09:51 AM [facility] LIPID PANEL, NON FASTING Specimen Type: SERUM No comment entered. Ordering Provider: JANET LENTZ Report Released Date/Time: Sep 01, 2024 12:06 PM Reporting Lab: [address] [address] Performing Lab: [address] [address] CHOLESTEROL 154 mg/dL TRIGLYCERIDE 71 mg/dL 0-150 LDL calculated 67 mg/dL 0-129 CHOL/HDL 2.1 HDL CHOLESTEROL 73 mg/dL H 40-60 Sep 06, 2024 09:51 AM [facility] LIVER FUNCTION Specimen Type: SERUM No comment entered. Ordering Provider: JANET LENTZ Report Released Date/Time: Sep 01, 2024 12:06 PM Reporting Lab: [address] [address] Performing Lab: [facility] [address] [facility] [address] PROTEIN,TOTAL 7.1 g/dL 6.0-8.3 ALBUMIN 3.9 g/dL [...] Source Sep 14, 2024 08:51 AM 130/80 [facility] [employer] [facility] Sep 14, 2024 07:53 AM 98.3 9 148/79 20 90 0 68 201 31 [facility] Social History: Smoking Status (Most current) and Tobacco Use (All prior to encounter date) This section includes the most current, and the historical, smoking and tobacco- related health factors from the [place] facility where the Encounter took place. Current Smoking Status This section includes the most current smoking, or tobacco-related health factor, from the [place] facility where the Encounter took place. Date/Time Current Smoking Status Comment Facil ity Sep 14, 2024 08:00 AM VA-TOBACCO USE ОЛЕГ RY DAY CIGARETTES [facility] Tobacco Use History This section includes a history of the smoking, or tobacco-related health factors, that were collected on or before the date of the Encounter. The data comes from the [place] facility where the Encounter took place. 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 [facility] Sep 14, 2024 08:00 AM VA-TOBACCO USE ОЛЕГ RY DAY CIGARETTES [facility] Sep 14, 2024 08:00 AM VA-TOBACCO USE MED NO [facility] [place] [facility] Sep 04, 2023 01:14 PM VA-TOBACCO USE 30 YEARS OR MORE [facility] [place] [facility] Sep 04, 2023 01:14 PM VA-TOBACCO USE ADVICE [facility] [place] [facility] Sep 04, 2023 01:14 PM 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 [facility] [place] [facility] Sep 04, 2023 01:14 PM VA-TOBACCO USE MED NO [facility] [place] [facility] Sep 04, 2023 01:14 PM VA-TOBACCO USE [place] 30 MIN OF WAKEUP [facility] [place] [facility] Sep 04, 2023 01:14 PM VA-TOBACCO USER EVERY DAY [facility] [place] [facility] Oct 01, 2022 09:45 AM VA-TOBACCO DOESNT USE WI 30 MIN WAKEUP [facility] [place] [facility] Oct 01, 2022 09:45 AM VA-TOBACCO USE 30 YEARS OR MORE [facility] [place] [facility] Oct 01, 2022 09:45 AM VA-TOBACCO USE ADVICE [facility] [place] [facility] Oct 01, 2022 09:45 AM 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 [facility] [place] [facility] Oct 01, 2022 09:45 AM VA-TOBACCO USE MED NO [facility] [place] [facility] Oct 01, 2022 09:45 AM VA-TOBACCO USER EVERY DAY [facility] [place] [facility] Sep 07, 2021 10:30 AM VA-TOBACCO USE 30 YEARS OR MORE [facility] [place] [facility] Sep 07, 2021 10:30 AM VA-TOBACCO USE ADVICE [facility] [place] [facility] Sep 07, 2021 10:30 AM 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 [facility] [place] [facility] Sep 07, 2021 10:30 AM VA-TOBACCO USE MED NO [facility] [place] [facility] Sep 07, 2021 10:30 AM VA-TOBACCO USE [place] 30 MIN OF WAKEUP [facility] [place] [facility] Sep 07, 2021 10:30 AM VA-TOBACCO USER EVERY DAY [facility] [place] [facility] Jun 08, 2020 09:00 AM VA-TOBACCO USE 30 YEARS OR MORE [facility] [place] [facility] Jun 08, 2020 09:00 AM VA-TOBACCO USE ADVICE [facility] [place] [facility] Jun 08, 2020 09:00 AM 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 [facility] [place] [facility] Jun 08, 2020 09:00 AM VA-TOBACCO USE MED NO [facility] [place] [facility] Jun 08, 2020 09:00 AM VA-TOBACCO USE [place] 30 MIN OF WAKEUP [facility] [place] [facility] Jun 08, 2020 09:00 AM VA-TOBACCO USER EVERY DAY [facility] [place] [facility] Feb 01, 2019 02:27 PM VA-TOBACCO USE 30 YEARS OR MORE [facility] [place] [facility] Feb 01, 2019 02:27 PM VA-TOBACCO USE ADVICE [facility] [place] [facility] Feb 01, 2019 02:27 PM 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 [facility] [place] [facility] Feb 01, 2019 02:27 PM VA-TOBACCO USE MED NO [facility] [place] [facility] Feb 01, 2019 02:27 PM VA-TOBACCO USE [place] 30 MIN OF WAKEUP [facility] [place] [facility] Feb 01, 2019 02:27 PM VA-TOBACCO USER EVERY DAY [facility] [place] [facility] Apr 02, 2018 02:47 PM CURRENT SMOKER VA C [facility] [place] [facility] Apr 02, 2018 02:47 PM V1-PT DECLINES REF TO TOBACCO CESS PRGM [facility] [place] [facility] Apr 02, 2018 02:47 PM V1-PT DECLINES TOB ACCO CESSATION MEDS [facility] [place] [facility] Apr 02, 2018 02:47 PM V1-PT THINKING ABO UT QUIT TOBACCO USE [facility] [place] [facility] Encounter Notes: All associated encounter notes This section contains the clinical notes associated to the Encounter. Date/Time Encounter Note(s) Provider Source Sep 14, 2024 02:35 PM ADMINISTRATIVE NOT E: LOCAL TITLE: CCC: SCHEDULING ADMINISTRATION STANDARD TITLE: ADMINISTRATIVE NOTE DATE OF NOTE: SEP 14, 2024@14:35:58 ENTRY DATE: SEP 14, 2024@14:35:58 AUTHOR: NATHANIEL HEATH COSIGNER: URGENCY: STATUS: COMPLETED CCC: SCHEDULING ADMINISTRATION Has ADDENDA Patient Demographics Patient Name: KINGSTON RENDON Patient Primary Phone: [phone] Patient Primary Address: [address] [place] [address] Patient : 1955 Patient Age: 69 Caller/Recipient Relation to Patient: Self Caller Name: KINGSTON RENDON Administrative Administrative Note Reason: Other Administrative Note Comments: [facility] is requesting a call back to discuss his PREDNISONE 20MG TAB IMPORTANT: This note was created by [facility] Clinical Contact Center staff. Please do not alert the staff member by adding them as a signer for future communications. Alerts are not monitored by this user. /lolly/ NATHANIEL HEATH VISN1 [facility] Signed: 09/14/2024 14:36 Receipt Acknowledged By: 09/15/2024 08:47 /es/ Alonso Bolanos, Health Direct Care Supervisor [employer]BI[employer] HOME [employer]ORER,PRIMARY CARE 09/14/2024 14:42 /es/ Dena Jade MSN RN CNL Primary Care RN 09/14/2024 ADDENDUM STATUS: COMPLETED PCP will contact [facility] /lolly/ Dena Jade MSN RN CNL Primary Care RN Signed: 09/14/2024 14:43 09/14/2024 ADDENDUM STATUS: COMPLETED i spoke with [facility] and addressed his question - he thought the prednisone was fdc, i explained this is short course. He expressed understanding. /es/ Sherlyn Lentz DNP, TOBACCO SAMPLE PULLER-BC, CNL Primary Care Nurse Practitioner Signed: 09/14/2024 14:44 NATHANIEL HEATH [facility]
--- OUTSIDE RECORDS SUMMARY | 2024-10-11 16:52 | XMS_ITS | Encounter Summary ---
Author Name [facility] [facility] [place] Organization [facility] [place] Address [address] [place] [id number] Care Team Providers Care Crm Marketing Executive Name Role Phone SHERLYN BRADLEY Primary Care Provider [facility] Insurance Providers: All historical and current [...] PART B Apr 05, 2020 PART B [id number] [facility] [place] PATIENT MEDICARE (WNR) MEDICARE (M) PART A Mar 06, 2019 PART A [id number] [facility] [place] PATIENT Selected Encounter This section includes the information on record at [place] for the Encounter. Date/Time Encounter Type Encounter Description Reason Pro vider Source Sep 08, 2024 07:10 AM Outpatient Encounter ENDOCRINOLOGY IHE Encounter Template Text not used by [place] Plan of Treatment: Future Appointments (+ 6 [...] 20 appointments. The data comes from all [facility]. Appointment Date/Time Appointment Type Appointme nt Facility Name Sep 14, 2024 08:00 AM AMBULATORY - MEDICINE [facility] Oct 15, 2024 08:30 AM AMBULATORY - NONE [facility] Jan 20, 2025 08:00 AM AMBULATORY - MEDICINE [facility] Active, Pending, and Scheduled Orders This section includes a listing of several types of active, pending, and scheduled orders, including clinic medications orders, diagnostic test orders, procedure orders and consult orders; where the start date of the order is 45 days before the date of the Encounter or 45 days after the date of theEncounter. The data comes from all [facility]. Test Date/Time Test Type Test Details Facility Name Sep 14, 2024 08:27 AM Consult Order COMMUNITY CARE-PULMONARY Cons Planer [facility] Oct 15, 2024 08:30 AM Imaging - CT Scan Order CT THORAX W/O CONT [facility] Lab Results: +/- 30 days of the encounter This section includes the Chemistry and Hematology Lab Results on record with [place] for the patient. Radiology Reports and Pathology Reports are provided separately, in subsequent sections. Lab Results This section contains the Chemistry/Hematology Results that were resulted 30 days before or 30 daysafter the date of the Encounter. Date/Time Source Result Type Result - Unit Interpretation Reference Range Comment Sep 06, 2024 09:52 AM [facility] BASIC METABOLIC PANEL (non-fasting) Specimen Type: SERUM No comment entered. Ordering Provider: JEEVAN RILEY Report Released Date/Time: Jul 16, 2024 02:39 PM Reporting Lab: [facility] [address] [facility] [address] Performing Lab: [facility] [address] [facility] [address] UREA NITROGEN 16 mg/dL 7-25 GLUCOSE 87 mg/dL 65-100 SODIUM 137 mmol/L 135-145 POTASSIUM 4.6 mmol/L 3.5-5.0 CHLORIDE 97 mmol/L L 100-110 CO2 27 meq/L 20-30 CREATININE, Serum 0.89 mg/dL 0.50-1.40 eGFR(CKD-EPI 2020) >90 mL/min >60 Sep 06, 2024 09:51 AM [facility] CBC Specimen Type: BLOOD No comment entered. Ordering Provider: JANET BRADLEY Report Released Date/Time: Sep 01, 2024 12:06 PM Reporting Lab: [facility] [address] [facility] [address] Performing Lab: [address] [address] WBC 7.38 10*3/uL 4.50-11.00 RBC 5.30 10*6/uL 4.23-5.66 HGB 17.9 g/dL H 12.8-17 HCT 49.7 39.2-50.4 MCV 93.8 fL 82-99 MCHC 36.0 g/dL H 30.8-35.1 PLT 150 10*3/uL 140-360 RDW-CV 12.8 12.0-16.0 MCH 33.8 pg H 26.2-32.6 Sep 06, 2024 09:51 AM [facility] LIPID PANEL, NON FASTING Specimen Type: SERUM No comment entered. Ordering Provider: JANET BRADLEY Report Released Date/Time: Sep 01, 2024 12:06 PM Reporting Lab: [address] [address] Performing Lab: [address] [address] CHOLESTEROL 154 mg/dL TRIGLYCERIDE 71 mg/dL 0-150 LDL calculated 67 mg/dL 0-129 CHOL/HDL 2.1 HDL CHOLESTEROL 73 mg/dL H 40-60 Sep 06, 2024 09:51 AM [facility] LIVER FUNCTION Specimen Type: SERUM No comment entered. Ordering Provider: JANET BRADLEY Report Released Date/Time: Sep 01, 2024 12:06 PM Reporting Lab: [address] [address] Performing Lab: [facility] [place] [facility] [address] [facility] [address] PROTEIN,TOTAL 7.1 g/dL 6.0-8.3 ALBUMIN 3.9 g/dL 3.5-5.0 ALKALINE PHOSPHATASE 116 U/L 40-150 AST 38 U/L H 5-34 ALT 29 U/L BILIRUBIN, TOTAL 1.2 mg/dL 0.2-1.2 BILIRUBIN, DIRECT 0.6 mg/dL H 0-0.5 Social History: Smoking Status (Most current) and Tobacco Use (All prior to encounter date) This section includes the most current, and the historical, smoking and tobacco- related health factors from the [place] facility where the Encounter took place. Current Smoking Status This section includes the most current smoking, or tobacco-related health factor, from the [place] facility where the Encounter took place. Date/Time Current Smoking Status Comment Facil ity Sep 04, 2023 01:14 PM VA-TOBACCO USE 30 YEARS OR MORE [place] [facility] Tobacco Use History This section includes a history of the smoking, or tobacco-related health factors, that were collected on or before the date of the Encounter. The data comes from the [place] facility where the Encounter took place. 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 [facility] [place] [facility] Sep 04, 2023 01:14 PM VA-TOBACCO USE MED NO [facility] [place] [facility] Sep 04, 2023 01:14 PM VA-TOBACCO USE [place] 30 MIN OF WAKEUP [facility] [place] [facility] Sep 04, 2023 01:14 PM VA-TOBACCO USER EVERY DAY [facility] [place] [facility] Oct 01, 2022 09:45 AM VA-TOBACCO DOESNT USE [place] 30 MIN WAKEUP [place] [facility] [place] [facility] Oct 01, 2022 09:45 AM VA-TOBACCO USE 30 YEARS OR MORE [facility] [place] [facility] Oct 01, 2022 09:45 AM VA-TOBACCO USE ADVICE [facility] [place] [facility] Oct 01, 2022 09:45 AM VA-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 USE 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 [facility] [place] [facility] Oct 01, 2022 09:45 AM VA-TOBACCO USE MED NO [facility] [place] [facility] Oct 01, 2022 09:45 AM VA-TOBACCO USER EVERY DAY [facility] [place] [facility] Sep 07, 2021 10:30 AM VA-TOBACCO USE 30 YEARS OR MORE [facility] [place] [facility] Sep 07, 2021 10:30 AM VA-TOBACCO USE ADVICE [facility] [place] [facility] Sep 07, 2021 10:30 AM VA-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 USE 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 [facility] [place] [facility] Sep 07, 2021 10:30 AM VA-TOBACCO USE MED NO [facility] [place] [facility] Sep 07, 2021 10:30 AM VA-TOBACCO USE [place] 30 MIN OF WAKEUP [facility] [place] [facility] Sep 07, 2021 10:30 AM VA-TOBACCO USER EVERY DAY [facility] [place] [facility] Jun 08, 2020 09:00 AM VA-TOBACCO USE 30 YEARS OR MORE [facility] [place] [facility] Jun 08, 2020 09:00 AM VA-TOBACCO USE ADVICE [facility] [place] [facility] Jun 08, 2020 09:00 AM VA-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 USE 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 [facility] [place] [facility] Jun 08, 2020 09:00 AM VA-TOBACCO USE MED NO [facility] [place] [facility] Jun 08, 2020 09:00 AM VA-TOBACCO USE [place] 30 MIN OF WAKEUP [facility] [place] [facility] Jun 08, 2020 09:00 AM VA-TOBACCO USER EVERY DAY [facility] [place] [facility] Feb 01, 2019 02:27 PM VA-TOBACCO USE 30 YEARS OR MORE [facility] [place] [facility] Feb 01, 2019 02:27 PM VA-TOBACCO USE ADVICE [facility] [place] [facility] Feb 01, 2019 02:27 PM VA-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 USE 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 [facility] [place] [facility] Feb 01, 2019 02:27 PM VA-TOBACCO USE MED NO [facility] Feb 01, 2019 02:27 PM VA-TOBACCO USE [place] 30 MIN OF WAKEUP [facility] Feb 01, 2019 02:27 PM VA-TOBACCO USER EVERY DAY [facility] Apr 02, 2018 02:47 PM CURRENT [facility]MOKER [facility] Apr 02, 2018 02:47 PM V1-PT DECLINES REF TO TOBACCO CESS PRGM [place] [facility] Apr 02, 2018 02:47 PM V1-PT DECLINES TOB ACCO CESSATION MEDS [facility] Apr 02, 2018 02:47 PM V1-PT THINKING ABO UT QUIT [facility]ACCO [facility] Encounter Notes: All associated encounter notes This section contains the clinical notes associated to the Encounter. Date/Time Encounter Note(s) Provider Source Sep 08, 2024 07:10 AM LETTERS: LOCAL TITLE: PATIENT LETTER (B) STANDARD TITLE: LETTERS DATE OF NOTE: SEP 08, 2024@07:10 ENTRY DATE: SEP 08, 2024@07:10:45 AUTHOR: JEEVAN RILEY EXP COSIGNER: URGENCY: STATUS: COMPLETED Sep [facility] [address] [place] [id number] Dear [place], Your recent test results are as follows: 09/06/2024 09:52 SERUM CREATININE, Serum 0.89 mg/dL 0.50 - 1.40 eGFR(CKD-EPI 2020 >90 mL/min Ref: >=60 SODIUM 137 mmol/L 135 - 145 POTASSIUM 4.6 mmol/L 3.5 - 5.0 CHLORIDE 97 L mmol/L 100 - 110 CO2 27 mEq/L 20 - 30 UREA NITROGEN 16 mg/dL 7 - 25 GLUCOSE 87 mg/dL 65 - 100 HDL CHOLESTEROL 73 H mg/dL 40 - 60 Your sodium is normal on demeclocycline. It is working well for you. Please continue this. Please call if you have any questions or concerns at [phone] option 2 option 4. Sincerely, MD ROSEMARY Perry [facility]
--- OUTSIDE RECORDS SUMMARY | 2024-10-11 16:52 | XMS_ITS ---
Author Name [facility] [place] [facility] [place] [facility] [place] [facility] [place] Address [address] [place] [id number] Care Team Providers Care Managed Care Director Name Role Phone SHERLYN BRADLEY Primary [facility] Insurance Providers: All historical and [...] PART B Apr 05, 2020 PART B [id number] [employer] PATIENT MEDICARE (WNR) MEDICARE ([place]) PART A Mar 06, 2019 PART A [id number] [employer] PATIENT Selected Encounter This section includes the information on record at [place] for the Encounter. Date/Time Encounter Type Encounter Description Reason Provider Source Jul 22, 2024 08:00 AM OFFICE O/P EST MOD 30 MIN ENDOCRINOLOGY ICD-10-CM E87.1 Hypo-osmolality and hyponatremia JEEVAN RILEY Encounter Template Text not used by [facility] Assessments - Encounter Diagnoses This section includes the primary and secondary diagnoses documented for the Encounter. Date/Time Primary/Secondary Diagnosis Diagnosis Name Provider Source Jul 22, 2024 08:24 AM PRIMARY Hypo-osmolality and hyponatremia JEEVAN RILEY [facility] Plan of Treatment: Future Appointments (+ 6 months) and Future Tests (+/- 45 days) The Plan of Treatment section includes future care activities for the patient from all [place] [facility]. This section includes future appointments and future orders which are active, pending or scheduled. Future Appointments This section includes appointments that were scheduled to occur 6 months from the date of the Encounter, up to a maximum of 20 appointments. The data comes from all [place] treatment facilities. Appointment Date/Time Appointment Type Appointme nt Facility Name Sep 14, 2024 08:00 AM AMBULATORY - MEDICINE [facility] Oct 15, 2024 08:30 AM AMBULATORY - NONE [facility] Jan 20, 2025 08:00 AM AMBULATORY - MEDICINE [facility] Lab Results: +/- 30 days of the encounter This section includes the Chemistry and Hematology Lab Results on record with [place] for the patient. Radiology Reports and Pathology Reports are provided separately, in subsequent sections. Lab Results This section contains the Chemistry/Hematology Results that were resulted 30 days before or 30 daysafter the date of the Encounter. Date/Time Source Result Type Result - Unit Interpretation Reference Range Comment Jul 14, 2024 09:10 AM [facility] COPEPTIN Specimen Type: SERUM Comment: REFERENCE RANGE: <= 13.7 pmol/L This test was developed and its analytical performance characteristics have been determined by [facility]. It has not been cleared or approved by FDA. This assay has been validated pursuant to the CLIA regulations and is used for clinical purposes. Test performed by [employer] [id number] [place] [address] Stroboscope Operator: Estela Barlow MD,PHD,PATSY Test Reported by Saleem Mcdowell [employer] [place], [address] [place] [address] Seamus Joseph M.D., Ph.D., Director of Laboratories , CLIA [id number] TEST PERFORMED AT: , Ordering Provider: JEEVAN RILEY Report Released Date/Time: Jul 13, 2024 09:00 AM Reporting Lab: [facility] [place] [facility] [address] [facility] [address] Performing Lab: [facility] [place] [facility] [address] [address] COPEPTIN 7.3 SEE BELOW Jul 14, 2024 09:10 AM [facility] OSMOLALITY (SERUM) Specimen Type: SERUM Comment: Manually entered by: RTO Ordering Provider: JEEVAN RILEY Report Released Date/Time: Jul 13, 2024 09:00 AM Reporting Lab: [facility] [place] [facility] [address] [facility] [address] Performing Lab: [facility] [address] [facility] [address] OSMOLALITY (SERUM) 267 L [phone] Jul 14, 2024 09:10 AM [facility] OSMOLALITY (URINE) Specimen Type: URINE Comment: Manually entered by: RTO Ordering Provider: JEEVAN RILEY Report Released Date/Time: Jul 13, 2024 09:00 AM Reporting Lab: [facility] [place] [facility] [address] [facility] [address] Performing Lab: [facility] [address] [facility] [address] OSMOLALITY (URINE) [phone] Jul 14, 2024 09:10 AM [facility] SODIUM RANDOM URINE Specimen Type: URINE No comment entered. Ordering Provider: JEEVAN RILEY Report Released Date/Time: Jul 13, 2024 09:00 AM Reporting Lab: [facility] [place] [facility] [address] [facility] [address] Performing Lab: [facility] [address] [facility] [address] SODIUM, URINE 53 mmol/L 20-400 Jul 14, 2024 09:10 AM [facility] BASIC METABOLIC PANEL (non-fasting) Specimen Type: SERUM No comment entered. Ordering Provider: JEEVAN RILEY Report Released Date/Time: Jul 13, 2024 09:00 AM Reporting Lab: [facility] [place] [facility] [address] [facility] [address] Performing Lab: [facility]ERL TRN [place] [facility] [address] [facility] [address] UREA NITROGEN 15 mg/dL 7-25 GLUCOSE 95 mg/dL 65-100 SODIUM 128 mmol/L L 135-145 POTASSIUM 4.9 mmol/L 3.5-5.0 CHLORIDE 88 mmol/L L 100-110 CO2 24 meq/L 20-30 CREATININE, Serum 0.91 mg/dL 0.50-1.40 eGFR(CKD-EPI 2020) 90 mL/min >60 Jul 12, 2024 01:01 PM [facility] [place] [facility] THYROID T4 FREE(FT4) (WROX) Specimen Type: SERUM No comment entered. Ordering Provider: JEEVAN RILEY Report Released Date/Time: Jul 09, 2024 10:34 AM Reporting Lab: [facility] [address] [facility] [address] Performing Lab: [facility] [address] [facility] [address] THYROID T4 FREE(FT4) (WROX) 1.38 ng/dL 0.6-1.6 Jul 12, 2024 01:01 PM [facility] TSH Specimen Type: SERUM No comment entered. Ordering Provider: JEEVAN RILEY Report Released Date/Time: Jul 09, 2024 10:34 AM Reporting Lab: [facility] [place] [facility] [address] [facility] [address] Performing Lab: [facility] [place] [facility] [address] [facility] [address] TSH 1.37 u[IU]/mL 0.35-5.00 Jul 12, 2024 01:01 PM [facility] CALCIUM Specimen Type: SERUM No comment entered. Ordering Provider: JEEVAN RILEY Report Released Date/Time: Jul 09, 2024 10:34 AM Reporting Lab: [facility] [address] [address] Performing Lab: [facility] [address] CALCIUM 10.0 mg/dL 8.5-10.2 Jul 12, 2024 01:01 PM [facility] VITAMIN D (25-OH) Specimen Type: SERUM No comment entered. Ordering Provider: JEEVAN RILEY Report Released Date/Time: Jul 09, 2024 10:34 AM Reporting Lab: [address] [address] Performing Lab: [address] [address] VITAMIN D (25-OH) 44 ng/mL 20-50 Jul 12, 2024 01:01 PM [facility] BASIC METABOLIC PANEL (non-fasting) Specimen Type: SERUM No comment entered. Ordering Provider: JEEVAN RILEY Report Released Date/Time: Jul 09, 2024 10:50 AM Reporting Lab: [address] [address] Performing Lab: [address] [address] UREA NITROGEN 13 mg/dL 7-25 GLUCOSE 78 [...] 100 138/80 16 91 0 195 30 [facility] Social History: Smoking Status (Most current) and Tobacco Use (All prior to encounter date) This section includes the most current, and the historical, smoking and tobacco- related health factors from the [place] facility where the Encounter took place. Current Smoking Status This section includes the most current smoking, or tobacco-related health factor, from the [place] facility where the Encounter took place. Date/Time Current Smoking Status Comment Dinesh ity Sep 04, 2023 01:14 PM [place]-TOBACCO USER EVERY DAY [place] [facility] [place] [facility] Tobacco Use History This section includes a history of the smoking, or tobacco-related health factors, that were collected on or before the date of the Encounter. The data comes from the [place] facility where the Encounter took place. Date/Time Smoking Status/Tobacco Use Comment Radha acility Sep 04, 2023 01:14 PM VA-TOBACCO USE ADVICE [facility] [place] [facility] Sep 04, 2023 01:14 PM VA-TOBACCO USE BUSINESS INTELLIGENCE ADMINISTRATOR NO [facility] [place] [facility] Sep 04, 2023 01:14 PM VA-TOBACCO USE MED NO [facility] [place] [facility] Sep 04, 2023 01:14 PM VA-TOBACCO USE WI 30 MIN OF WAKEUP [facility] [place] [facility] Sep 04, 2023 01:14 PM VA-TOBACCO USER EVERY DAY [facility] [place] [facility] Oct 01, 2022 09:45 AM VA-TOBACCO DOESNT USE WI 30 MIN WAKEUP [facility] [place] [facility] Oct 01, 2022 09:45 AM VA-TOBACCO USE 30 YEARS OR MORE [facility] [place] [facility] Oct 01, 2022 09:45 AM VA-TOBACCO USE ADVICE [facility] [place] [facility] Oct 01, 2022 09:45 AM VA-TOBACCO USE BUSINESS INTELLIGENCE ADMINISTRATOR NO [facility] [place] [facility] Oct 01, 2022 09:45 AM VA-TOBACCO USE MED NO [facility] [place] [facility] Oct 01, 2022 09:45 AM VA-TOBACCO USER EVERY DAY [facility] [place] [facility] Sep 07, 2021 10:30 AM VA-TOBACCO USE 30 YEARS OR MORE [facility] [place] [facility] Sep 07, 2021 10:30 AM VA-TOBACCO USE ADVICE [facility] [place] [facility] Sep 07, 2021 10:30 AM VA-TOBACCO USE BUSINESS INTELLIGENCE ADMINISTRATOR NO [facility] [place] [facility] Sep 07, 2021 10:30 AM VA-TOBACCO USE MED NO [facility] [place] [facility] Sep 07, 2021 10:30 AM VA-TOBACCO USE WI 30 MIN OF WAKEUP [facility] [place] [facility] Sep 07, 2021 10:30 AM VA-TOBACCO USER EVERY DAY [facility] [place] [facility] Jun 08, 2020 09:00 AM VA-TOBACCO USE 30 YEARS OR MORE [facility] [place] [facility] Jun 08, 2020 09:00 AM VA-TOBACCO USE ADVICE [facility] [place] [facility] Jun 08, 2020 09:00 AM VA-TOBACCO USE BUSINESS INTELLIGENCE ADMINISTRATOR NO [facility] [place] [facility] Jun 08, 2020 09:00 AM VA-TOBACCO USE MED NO [facility] [place] [facility] Jun 08, 2020 09:00 AM VA-TOBACCO USE WI 30 MIN OF WAKEUP [facility] [place] [facility] Jun 08, 2020 09:00 AM VA-TOBACCO USER EVERY DAY [facility] [place] [facility] Feb 01, 2019 02:27 PM VA-TOBACCO USE 30 YEARS OR MORE [facility] [place] [facility] Feb 01, 2019 02:27 PM VA-TOBACCO USE ADVICE [facility] [place] [facility] Feb 01, 2019 02:27 PM VA-TOBACCO USE BUSINESS INTELLIGENCE ADMINISTRATOR NO [facility] [place] [facility] Feb 01, 2019 02:27 PM VA-TOBACCO USE MED NO [facility] [place] [facility] Feb 01, 2019 02:27 PM VA-TOBACCO USE WI 30 MIN OF WAKEUP [facility] [place] [facility] Feb 01, 2019 02:27 PM VA-TOBACCO USER EVERY DAY [facility] [place] [facility] Apr 02, 2018 02:47 PM CURRENT SMOKER VA C [facility] [place] [facility] Apr 02, 2018 02:47 PM V1-PT DECLINES REF TO TOBACCO CESS PRGM [facility] [place] [facility] Apr 02, 2018 02:47 PM V1-PT DECLINES TOB ACCO CESSATION MEDS [facility] [place] [facility] Apr 02, 2018 02:47 PM V1-PT THINKING ABO UT QUIT TOBACCO USE [facility] [place] [facility] Encounter Notes: All associated encounter notes This section contains the clinical notes associated to the Encounter. Date/Time Encounter Note(s) Provider Source Jul 22, 2024 07:14 AM PHYSICIAN NOTE: LOCAL TITLE: MD NOTE STANDARD TITLE: PHYSICIAN NOTE DATE OF NOTE: JUL 22, 2024@07:14 ENTRY DATE: JUL 22, 2024@07:14:21 AUTHOR: JEEVAN RILEY COSIGNER: URGENCY: STATUS: COMPLETED C: Benign pituitary neoplasm, Hyponatremia, osteoporosis, (central) hypothyroidism HPI: Recently, Demeclocycline was begun. He is liberalizing his previously very restricted sodium in diet. BP mildly elevated. He has occasional mild ankle swellling. He has not yet received demeclocycline. Some fatigue, but no change in clearheadedness. 11/2023 pituitary MRI showed shrinkage of the pituitary adenoma No falls or fractures. Calcium just refilled Last visit, four tooth extractions were anticipated He has not had this done. He is not sure that he wants to have this done. All recent endocrine labs were reviewed with the patient. Jul 14 Jul 12 20242023 GLUCOSE 95 78 mg/dL 65 - 100 BUN 15 13 mg/dL 7 - 25 CREATININE 0.91 0.81 mg/dL .5 - 1.4 Sodium 128 L 126 L mmol/L 135 - 145 K+/Pot 4.9 4.7 mmol/L 3.5 - 5 CL 88 L 87 L mmol/L 100 - 110 CO2 24 27 mEq/L 20 - 30 CA 10.0 mg/dL 8.5 - 10.2 SERUM Jul 12 Jul 12 20242023 TSH 1.37 uIU/mL .35 - 5 FT4 1.38 ng/dL .6 - 1.6 Jul 12, 2024@13:01 VITAMIN D (25-OH): 44 ng/mL 20 - 50 Jul 14, 2024@09:10 OSMOLALITY (SERUM): 267 L mOsm/K [id number] - 300 FEBRUARY 11, 2023 DEXA scan. Comparison: None. Findings: Measurement of bone mineral content gives a T score of -2.5 in the hip, and -1.2 in the lumbar spine. Active problems - Computerized Problem List is the source for the followin. Multiple nodules of lung 2. Osteoporosis 3. Benign neoplasm of pituitary gland 4. Diplopia 5. Hypothyroid 6. Polyp Colon (SCT [id number]) 7. Aneurysm of thoracic aorta 8. HTN - Hypertension ([facility] [id number]) 9. Hyperlipidemia ([facility] [id number]) 10. Chronic obstructive lung disease 11. Tobacco user 12. Elevated blood-pressure reading without diagnosis of hypertension 13. Dyspnea ([facility] [id number]) 14. Diagnosis or Condition Deferred on [place] Active Outpatient Medications (including Supplies): Active Outpatient Medications Status 1) ALBUTEROL 90MCG (CFC-F) 200D ORAL INHL INHALE 2 PUFFS ACTIVE BY MOUTH EVERY 4 HOURS NEEDED FOR BREATHING 2) ATORVASTATIN CALCIUM 40MG TAB TAKE ONE-HALF TABLET BY ACTIVE MOUTH ONCE DAILY FOR CHOLESTEROL 3) CALCIUM 200MG (CA CITRATE-950MG) TAB TAKE THREE ACTIVE TABLETS BY MOUTH TWICE DAILY 4) CHOLECALCIF 25MCG (D3-1,000UNIT) TAB TAKE ONE TABLET ACTIVE BY MOUTH ONCE DAILY FOR VITAMIN SUPPLEMENTATION 5) DEMECLOCYCLINE HCL 150MG TAB TAKE ONE TABLET BY MOUTH ACTIVE TWICE DAILY FOR INFECTION 6) FLUTICAS 250/SALMETEROL 50 INHL DISK 60 INHALE 1 PUFF ACTIVE BY MOUTH TWICE DAILY - RINSE MOUTH AFTER USE REPLACES SYMBICORT (BUDESONIDE/FORMOTEROL) 7) LEVOTHYROXINE NA (SYNTHROID) 88MCG TAB TAKE ONE ACTIVE TABLET BY MOUTH EVERY MORNING 30 MINUTES BEFORE BREAKFAST TAKE ON AN EMPTY STOMACH WITH A FULL GLASS OF WATER 8) LISINOPRIL 30MG TAB TAKE ONE TABLET BY MOUTH ONCE ACTIVE DAILY TO CONTROL BLOOD PRESSURE NOTE NEW TABLET STRENGTH 9) NAPROXEN 500MG TAB TAKE ONE TABLET BY MOUTH EVERY 12 ACTIVE HOURS NEEDED TAKE WITH FOOD; FOR PAIN/INFLAMMATION/SWELLING 10) TIOTROPIUM 2.5MCG/ACTUAT 60D ORAL INHL INHALE 2 PUFFS ACTIVE BY MOUTH ONCE DAILY THIS REPLACES TIOTROPIUM HANDIHALER CAPSULES SHx: Lives with sister ROS: Chronic cough no fever PE: Affect pleasant appropriate speaking easily in full sentences. A/P: Active problems - Computerized Problem List is the source for the followin. Osteoporosis Discussed that I would offer treatment in addition to calcium and vitamin D once extractions complete if desired. For now, simply continue these. Hyponatremia Start demeclocycline bid once it arrives. BMP two weeks copeptin pending 3. Benign neoplasm of pituitary gland No immediate follow up needed Labs:BMP two weeks, calcium vitamin D BMP next visit Follow up six months FTF Medication Reconciliation: Outpatient: Has the patient been taking medications as documented in the EMLR? YES: The patient has been taking medications as documented in the EMLR. Essential Medication List for Review used to complete this medication reconciliation. INCLUDED IN THIS LIST: Alphabetical list of active outpatient prescriptions dispensed from this [place] (local) and dispensed from another [place] or [facility] facility (remote) as well as inpatient [...] Remote Allergy/ADR Data available for this patient [facility] [place] [facility] HCTZ HYDROCHLOROTHIAZIDE Med Recon [facility] (Tool #1) INCLUDED IN THIS LIST: Alphabetical list of active outpatient prescriptions dispensed from this [facility] ([place]) and dispensed from another [place] or [facility] facility (remote) as well as inpatient orders (local pending and active), local clinic medications, locally documented non-VA medications, and local prescriptions that have or been discontinued in the past 90 days. Non-VA Meds Last Documented On: Data not found NOTE The display of VA prescriptions dispensed from another [place] or [facility] facility (remote) is limited to active outpatient prescription entries matched to National Drug File at the originating site and may not include some items such as investigational drugs, compounds, etc. NOT INCLUDED IN THIS LIST: Medications self-entered by the patient into personal health records (i.e. [employer]) are NOT included in this list. Non-VA medications documented outside this [place], remote inpatient orders (regardless of status) and remote clinic medications are NOT included in this list. The patient and provider must always discuss medications the patient is taking, regardless of where the medication was dispensed or obtained. OUTPT ALBUTEROL 90MCG (CFC-F) 200D ORAL INHL (Status = Active) INHALE 2 PUFFS BY MOUTH EVERY 4 HOURS NEEDED FOR BREATHING Rx# [id number] Last Released: 07/01/24 Qty/Days Supply: Rx Expiration Date: 01/21/25 Refills Remainin OUTPT ATORVASTATIN CALCIUM 40MG TAB (Status = Active) TAKE ONE-HALF TABLET BY MOUTH ONCE DAILY FOR CHOLESTEROL Rx# [id number] Last Released: 05/17/24 Qty/Days Supply: 45 Rx Expiration Date: 09/11/24 Refills Remainin OUTPT CALCIUM 200MG (CA CITRATE-950MG) TAB (Status = Active) TAKE THREE TABLETS BY MOUTH TWICE DAILY Rx# [id number] Last Released: 07/09/24 Qty/Days Supply: Rx Expiration Date: 10/07/24 Refills Remainin Indication: FOR OSTEOPOROSIS OUTPT CHOLECALCIF 25MCG (D3-1,000UNIT) TAB (Status = ) TAKE ONE TABLET BY MOUTH ONCE DAILY FOR VITAMIN SUPPLEMENTATION Rx# [id number] Last Released: 03/12/24 Qty/Days Supply: Rx Expiration Date: 04/26/24 Refills Remainin Indication: FOR VITAMIN D DEFICIENCY OUTPT CHOLECALCIF 25MCG (D3-1,000UNIT) TAB (Status = Active) TAKE ONE TABLET BY MOUTH ONCE DAILY FOR VITAMIN SUPPLEMENTATION Rx# [id number] Last Released: 07/09/24 Qty/Days Supply: Rx Expiration Date: 10/07/24 Refills Remainin Indication: FOR VITAMIN D DEFICIENCY OUTPT DEMECLOCYCLINE HCL 150MG TAB (Status = Active) TAKE ONE TABLET BY MOUTH TWICE DAILY FOR INFECTION Rx# [id number] Last Released: 07/20/24 Qty/Days Supply: Rx Expiration Date: 07/17/25 Refills Remainin Indication: FOR INFECTION OUTPT FLUTICAS 250/SALMETEROL 50 INHL DISK 60 (Status = Active) INHALE 1 PUFF BY MOUTH TWICE DAILY - RINSE MOUTH AFTER USE REPLACES SYMBICORT (BUDESONIDE/FORMOTEROL) Rx# [id number] Last Released: 07/09/24 Qty/Days Supply: 11/04 Rx Expiration Date: 12/04/24 Refills Remainin OUTPT LEVOTHYROXINE NA (SYNTHROID) 88MCG TAB (Status = Active) TAKE ONE TABLET BY MOUTH EVERY MORNING 30 MINUTES BEFORE BREAKFAST TAKE ON AN EMPTY STOMACH WITH A FULL GLASS OF WATER Rx# [id number] Last Released: 07/09/24 Qty/Days Supply: Rx Expiration Date: 12/29/24 Refills Remainin Indication: FOR THYROID OUTPT LISINOPRIL 30MG TAB (Status = Active) TAKE ONE TABLET BY MOUTH ONCE DAILY TO CONTROL BLOOD PRESSURE NOTE NEW TABLET STRENGTH Rx# [id number] Last Released: 07/09/24 Qty/Days Supply: Rx Expiration Date: 09/11/24 Refills Remainin OUTPT NAPROXEN 500MG TAB (Status = Active) TAKE ONE TABLET BY MOUTH EVERY 12 HOURS NEEDED TAKE WITH FOOD; FOR PAIN/INFLAMMATION/SWELLING Rx# [id number] Last Released: 03/12/24 Qty/Days Supply: Rx Expiration Date: 03/13/25 Refills Remainin Indication: FOR PAIN OUTPT TIOTROPIUM 2.5MCG/ACTUAT 60D ORAL INHL (Status = Active) INHALE 2 PUFFS BY MOUTH ONCE DAILY THIS REPLACES TIOTROPIUM HANDIHALER CAPSULES Rx# [id number] Last Released: 05/17/24 Qty/Days Supply: Rx Expiration Date: 09/11/24 Refills Remainin SUPPLIES /lolly/ JEEVAN RILEY MD STAFF PHYSICIAN Signed: 07/22/2024 08:24 JEEVAN RILEY [facility]
== END 2024-10-11 14:38 | disposition home or self-care (01) ==
LOC: CF 14:37
DX: Z13.89 Encounter for screening for other disorder (principal)

== ENCOUNTER 2024-10-18 09:34 | Outpatient (AMB) | payer OTHER, SELFPAY ==
[2024-10-18 09:40] VITALS: BP 154/78; PULSE 104; O2SAT 81
--- NOTE | 2024-10-18 09:40 | MHC.OFFVIS ---
Vital Signs 10/18/24 09:40 Height 5 ft 8 in Weight 197 lb 5.019 oz BMI 30.0 BP 154/78 H Blood Pressure Location Rt brachial Position Sitting Pulse 104 H Pulse Source Doppler Pulse Oximetry (%) 81 L Oxygen Delivery Method Room Air Intake Visit Reasons: COPD Allergies hydrochlorothiazide Adverse Reaction (Severe, Verified 10/18/24 09:49) Rash HPI HPI COPD: Details: 69-year-old gentleman, recent 40+ pack-year smoker with underlying COPD referred for pulmonary evaluation. Patient complains of significant dyspnea on exertion and lower extremity edema also associated with orthopnea. On initial evaluation his room air saturation 81%. He denies family history of lung disease. Patient does have CT chest from April of 2024 from [place] showing several new 3-4 mm pulmonary nodules. [facility] Social History (Updated 10/18/24 @ 09:48 by Ammy Barber Tito) Patient Tobacco Use Status: Current everyday Tobacco user Tobacco use type: Cigarette Years Smoked: started at age 12, 2-3 PPD, quit 10/16/2024 Review of Systems Const Denies daytime sleepiness, Denies excessive sweating, Denies fatigue, Denies fever(s), Denies lethargy, Denies malaise, Denies night sweats, Denies snoring and Denies weight loss Eyes Denies blurry vision and Denies itchy eyes ENT Denies nasal congestion, Denies post nasal drip, Denies sinus pain, Denies sinus pressure and Denies other ( Thrush) Card Denies chest pain, Reports pedal edema, Reports dyspnea, Reports dyspnea on exertion, Reports orthopnea and Reports paroxysmal nocturnal dyspnea Resp Denies cough, Denies hemoptysis, Denies excessive phlegm production, Reports dyspnea, Reports dyspnea on exertion, Denies snoring and Denies wheezing GI Denies abdominal pain and Denies heartburn Musc Denies myalgias, Denies arthralgias and Denies joint swelling Skin/Breast Denies rash Neuro Denies memory loss and Denies seizure-like activity Psych Denies abnormal sleep pattern, Denies anxiety and Denies memory loss Endo Denies excessive sweating, Denies fatigue and Denies heat intolerance Saw/Lymph Denies easy bruising Aller/Immun Denies itchy eyes, Denies seasonal rhinorrhea and Denies wheezing Physical Exam Vital Signs: Last Vital Signs Pulse 104 H 10/18/24 09:40 BP 154/78 H 10/18/24 09:40 Pulse Ox 81 L 10/18/24 09:40 Oxygen Delivery Method Room Air 10/18/24 09:40 BMI result Body Mass Index 30.0 Const General: no acute distress and alert Nutritional Appearance: not obese Orientation/consciousness: Other orientation findings ( oriented) HEENT Head: Yes atraumatic Eyes General: appearance normal, both eyes and all related structures Sclerae: sclerae normal EOM: EOMs intact bilaterally Neck Neck: Yes supple Lymphatic: no lymphadenopathy noted Resp Effort & Inspection: normal respiratory effort and no use of accessory muscles Auscultation: clear to auscultation bilaterally Cardio Rate: regular rate Rhythm: regular rhythm Heart sounds: no gallops, no murmurs and no rubs Skin General skin exam: other ( warm) Extrem General: No clubbing, No cyanosis and Yes edema (2+ bilateral) Office Procedures 6 Minute Walk Time:: 10:00 SPO2 % at rest: 78 Pulse at rest: 97 SPO2 % during excercise: 90 Pulse during excercise: 115 SPO2 % after excercise: 91 Pulse after excercise: 98 Distance in yards walked: 60 Nicolas Score: 8 Performance Observations:: at rest on room air SPO2 was 78%, O2 started at 2 lpm then increased to 3 lpm. His SPO2 recovered to 91%. He walked unassisted for 60 yards maintaining his SPO2 at 90-91%, he was unable to walk any further. MD mercado. [id number] - 6 Minute Walk Assessment & Plan Assessment & Plan (1) COPD (chronic obstructive pulmonary disease): Code(s): J44.9 - Chronic obstructive pulmonary disease, unspecified Category: Medical Plan: Likely severe COPD. Continue current regimen of Wixela, albuterol MDI, and Spiriva. Will obtain full PFT. (2) Supplemental oxygen dependent: Code(s): Z99.81 - Dependence on supplemental oxygen Category: Medical Plan: 6 minute walk test/supplemental oxygen evaluation performed. Patient requires supplemental oxygen at 3 L continuous flow to maintain normal oximetry with exertion. Oxygen order placed with [employer]. [employer] cylinder provided. (3) Pulmonary nodules: Code(s): R91.8 - Other nonspecific abnormal finding of lung field Category: Medical Plan: New nodules on last CT chest from 04/24/2024, will repeat CT chest for further evaluation. (4) Dyspnea on exertion: Code(s): R06.09 - Other forms of dyspnea Category: Medical Plan: Likely multifactorial with contribution from underlying pulmonary and cardiac etiologies. Now with significant orthopnea and lower extremity edema. Will start Lasix 40 mg daily and obtain 2D echocardiogram. Orders: Orders CA echo transthoracic complete Today R06.09 - Other forms of dyspnea PFT pulmonary function test Today R06.09 - Other forms of dyspnea AMB 6 minute walk Today R06.09 - Other forms of dyspnea Medications: New furosemide 40 mg PO DAILY 30 tabs 6RF Coding Level of Care Code New Pt Level 5 (17844) Diagnoses COPD (chronic obstructive pulmonary disease) J44.9 Supplemental oxygen dependent Z99.81 Pulmonary nodules R91.8 Dyspnea on exertion R06.09 CPT Codes Coding ([id number])
--- OUTSIDE RECORDS SUMMARY | 2024-10-18 10:26 | XMS_ITS | Continuity of Care Document ---
Author Name [facility] Organization [facility] Care Team Providers Care Grab Jack Man Name Role Phone 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 cutting down from 5 cigars to 5 cigarettes [facility] Elevated blood-pressure reading without diagnosis of hypertension Active Condition [facility] HTN - Hypertension (SCT [id number]) Active Condition [facility] Hyperlipidemia (SCT [id number]) Active Condition Nov 06, 2018 Entered By: GIN BRADLEY Comment: address next visitDec 07, 2020 Entered By: GIN BRADLEY Comment: start atorvastatin 20mg qhs [facility] Hyponatremia Active Condition [facility] Hypothyroid Active Condition [facility] Multiple nodules of lung Active [facility] [place] [facility] Osteoporosis Active Condition [facility] [place] [facility] Polyp Colon (SCT [id number]) Active Condition Jun 04, 2019 Entered By: GIN BRADLEY Comment: c-scope 06/02/19 normal exam, repeat May 2029 [facility] [place] [facility] Tobacco user Active Condition [facility] [place] [facility] Diagnosis: ICD-10-CM J44.9 Chronic obstructive pulmonary disease, unspecified Active Diagnosis [facility] [place] [facility] Diagnosis: ICD-10-CM E03.9 Hypothyroidism, unspecified Active Diagnosis [facility] [place] [facility] Diagnosis: ICD-10-CM E87.1 Hypo-osmolality and hyponatremia Active Diagnosis [facility] [place] [facility] Diagnosis: ICD-10-CM R91.1 Solitary pulmonary nodule Active Diagnosis [facility] [place] [facility] Diagnosis: ICD-10-CM M81.0 Age-related osteoporosis w/o current pathological fracture Active Diagnosis [facility] [place] [facility] Diagnosis: ICD-10-CM D35.2 Benign neoplasm of pituitary gland Active Diagnosis [facility] [place] [facility] Diagnosis: ICD-10-CM K05.323 Chronic periodontitis, generalized, severe Active Diagnosis [facility] [place] [facility] Medications Combined list [...] G RESPIR ATORY (INHAL ATION) ACTIVE 09/15/2025 [id number] SHERLYN BRADLEY 2024 3 [facility] ALBUTEROL 90MCG/ACTUA T (CFC-F) INHL,ORAL,8 .5GM DOSE COUNTER INHALE 2 PUFFS BY MOUTH EVERY 4 HOURS NEEDED FOR BREATHIN G RESPIR ATORY (INHAL ATION) DISCONT INUED 01/21/2025 [id number] 4 BERNARDINO NIELSEN 2023 3 [facility] ALBUTEROL 90MCG/ACTUA T (CFC-F) INHL,ORAL,8 .5GM DOSE COUNTER INHALE 2 PUFFS BY MOUTH EVERY 4 HOURS NEEDED RESPIR ATORY (INHAL ATION) DISCONT INUED 01/10/2024 [id number] 4 SHERLYN BRADLEY 2022 1 [facility] [place] ALBUTEROL SO4 0.083% INHL,3ML INHALE 1 AMPULE IN NEBULIZE R EVERY 6 HOURS NEEDED FOR BREATHIN G RESPIR ATORY (INHAL ATION) ACTIVE 09/15/2025 [id number] SHERLYN BRADLEY 2023 120 [facility] [place] ATORVASTATI N CA 40MG TAB TAKE ONE-HALF TABLET BY MOUTH ONCE DAILY FOR CHOLESTE ROL ORAL ACTIVE 09/15/2025 [id number] 4 SHERLYN BRADLEY 2023 45 [facility] ATORVASTATI N CA 40MG TAB TAKE ONE-HALF TABLET BY MOUTH ONCE DAILY FOR CHOLESTE ROL ORAL DISCONT INUED 09/11/2024 [id number] 4 SHERLYN BRADLEY 2022 45 [facility] CALCIUM 200MG (CA CITRATE-950 MG) TAB TAKE THREE TABLETS BY MOUTH TWICE DAILY ORAL ACTIVE 12/13/2024 [id number] 4 SHERLYN BRADLEY 2023 540 [facility] [place] CALCIUM 200MG (CA CITRATE-950 MG) TAB TAKE THREE TABLETS BY MOUTH TWICE DAILY ORAL DISCONT INUED 10/07/2024 [id number] RILEY,AL ICE 2023 540 [facility] [place] CHOLECALCIF UNA 25MCG (1,000UNIT) TAB TAKE ONE TABLET BY MOUTH ONCE DAILY FOR VITAMIN SUPPLEME NTATION ORAL ACTIVE 12/13/2024 [id number] 4 SHERLYN BRADLEY 2023 90 [facility] CHOLECALCIF UNA 25MCG (1,000UNIT) TAB TAKE ONE TABLET BY MOUTH ONCE DAILY FOR VITAMIN SUPPLEME NTATION ORAL DISCONT INUED 10/07/2024 [id number] RILEY,AL ICE 2023 90 [facility] CHOLECALCIF UNA 25MCG (1,000UNIT) TAB TAKE ONE TABLET BY MOUTH ONCE DAILY FOR VITAMIN SUPPLEME NTATION ORAL 04/26/2024 [id number] RILEY,AL ICE 2022 90 [facility] DEMECLOCYCL INE HCL 150MG TAB TAKE ONE TABLET BY MOUTH TWICE DAILY FOR INFECTIO N ORAL ACTIVE 07/17/2025 [id number] 4 RILEY,AL ICE 2023 180 [facility] FLUTICASONE 250MCG/SALM ETEROL 50MCG INHL,ORAL,D ISKUS,60 INHALE 1 PUFF BY MOUTH TWICE DAILY - RINSE MOUTH AFTER USE REPLAC ES SYMBICOR T (BUDESON NAVID/FORM OTEROL)* * RESPIR ATORY (INHAL ATION) ACTIVE 09/15/2025 [id number] 4 SHERLYN BRADLEY 2023 1 [facility] FLUTICASONE 250MCG/SALM ETEROL 50MCG INHL,ORAL,D ISKUS,60 INHALE 1 PUFF BY MOUTH TWICE DAILY - RINSE MOUTH AFTER USE REPLAC ES SYMBICOR T (BUDESON NAVID/FORM OTEROL)* * RESPIR ATORY (INHAL ATION) DISCONT INUED 12/04/2024 [id number] 4 SHERLYN BRADLEY 2023 1 [facility] FLUTICASONE 250MCG/SALM ETEROL 50MCG INHL,ORAL,D ISKUS,60 INHALE 1 PUFF BY MOUTH TWICE DAILY - RINSE MOUTH AFTER USE REPLAC ES SYMBICOR T (BUDESON NAVID/FORM OTEROL)* * RESPIR ATORY (INHAL ATION) DISCONT INUED 10/02/2023 [id number] 3 BERNARDINO NIELSEN 2021 1 [facility] LEVOTHYROXI NE NA 88MCG TAB (SYNTHROID) TAKE ONE TABLET BY MOUTH EVERY MORNING 30 MINUTES BEFORE BREAKFAS T TAKE ON AN EMPTY STOMACH WITH A FULL GLASS OF WATER ORAL ACTIVE 09/15/2025 [id number] 4 SHERLYN BRADLEY 2023 90 [facility] LEVOTHYROXI NE NA 88MCG TAB (SYNTHROID) TAKE ONE TABLET BY MOUTH EVERY MORNING 30 MINUTES BEFORE BREAKFAS T TAKE ON AN EMPTY STOMACH WITH A FULL GLASS OF WATER ORAL DISCONT INUED 12/29/2024 [id number] 4 SHERLYN BRADLEY 2023 90 [facility] LEVOTHYROXI NE NA 88MCG TAB (SYNTHROID) TAKE ONE TABLET BY MOUTH EVERY MORNING 30 MINUTES BEFORE BREAKFAS T TAKE ON AN EMPTY STOMACH WITH A FULL GLASS OF WATER ORAL DISCONT INUED 11/05/2023 [id number] 3 SHERLYN BRADLEY 2022 90 [facility] LISINOPRIL 30MG TAB TAKE ONE TABLET BY MOUTH ONCE DAILY TO CONTROL BLOOD PRESSURE NOTE NEW TABLET STRENGTH ORAL ACTIVE 09/15/2025 [id number] 4 SHERLYN BRADLEY 2023 90 [facility] LISINOPRIL 30MG TAB TAKE ONE TABLET BY MOUTH ONCE DAILY TO CONTROL BLOOD PRESSURE NOTE NEW TABLET STRENGTH ORAL DISCONT INUED 09/11/2024 [id number] 4 SHERLYN BRADLEY 2022 90 [facility] NAPROXEN 500MG TAB TAKE ONE TABLET BY MOUTH EVERY 12 HOURS NEEDED TAKE WITH FOOD; FOR PAIN/INF LAMMATIO N/SWELLI NG ORAL ACTIVE 03/13/2025 [id number] 4 SHERLYN BRADLEY 2023 60 [facility] PREDNISONE 20MG TAB TAKE ONE TABLET BY MOUTH ONCE DAILY FOR ASTHMA ORAL 10/14/2024 [id number] SHERLYN BRADLEY 2023 7 [facility] TIOTROPIUM 2.5MCG/ACTU AT INHL,ORAL,6 0D,4GM INHALE 2 PUFFS BY MOUTH ONCE DAILY THIS REPLACES TIOTROPI UM HANDIHAL ER CAPSULES RESPIR ATORY (INHAL ATION) SUSPEND ED 09/15/2025 [id number] 5 SHERLYN BRADLEY 2024 3 [facility] TIOTROPIUM 2.5MCG/ACTU AT INHL,ORAL,6 0D,4GM INHALE 2 PUFFS BY MOUTH ONCE DAILY THIS REPLACES TIOTROPI UM HANDIHAL ER CAPSULES RESPIR ATORY (INHAL ATION) DISCONT INUED 09/11/2024 [id number] 4 SHERLYN BRADLEY 2022 3 [facility] Allergies, Adverse Reactions, Alerts Combined list of allergies from Department of Defense and Veterans Affairs facilities. It does not include entries that were removed or entered in error. Substance Category Reaction Severity Reaction type Status Date Reported Comments Source HCTZ HYDROCHLOROTH IAZIDE Propensity to adverse reactions to drug (finding) active 8 [facility] Immunizations Combined list of available immunizations from the Department of Defense and Veterans Affairs facilities. Immunization Series Date Given Administered By Site Reaction Lot Number CVX Code Drug Management Professionals Status Comments Source COVID-19 (MODERNA), MRNA, LNP-S, PF, 50 MCG/0.5 ML (AGES 12+ YEARS) 2023 ZANVETTOR,PADMINI LAURA RIGHT DELTO ID [id number] 312 complet ed [facility] INFLUENZA, HIGH-DOSE, TRIVALENT, PF 2023 RADHA ZHANG LEFT DELTO ID [id number] 135 complet ed [facility] PNEUMOCOCCAL CONJUGATE PCV20, POLYSACCHARID E [id number] CONJUGATE, ADJUVANT, PF 2023 ZAMOIZOR,PADMINI LAURA RIGHT DELTO ID [id number] 216 complet ed [facility] COVID-19 (MODERNA), MRNA, LNP-S, PF, 50 MCG/0.5 ML (AGES 12+ YEARS) 2022 ANSHU,PADMINI LAURA LEFT DELTO ID [id number] 312 complet ed [facility] INFLUENZA, HIGH-DOSE, QUADRIVALENT 2022 ZAJoseloVEISIDROOR,PADMINI LAURA RIGHT DELTO ID [id number] 197 complet ed [facility] INFLUENZA VACCINE, QUADRIVALENT, ADJUVANTED 2021 ZAGRACIE,PADMINI LAURA RIGHT DELTO ID [id number] 205 complet ed [facility] INFLUENZA VACCINE, QUADRIVALENT, ADJUVANTED 2020 205 complet ed [facility] COVID-19 (MODERNA), MRNA, LNP-S, PF, 100 MCG OR 50 MCG DOSE 3 2020 207 complet ed [facility] COVID-19 (PFIZER), MRNA, LNP-S, PF, 30 MCG/0.3 ML DOSE 2 2020 208 complet ed PFR; [id number]; 1 [facility] COVID-19 (PFIZER), MRNA, LNP-S, PF, 30 MCG/0.3 ML DOSE 1 2020 208 complet ed PFR; [id number]; 1 [facility] [...] Jul 16, 2024 02:39 PM Reporting Lab: [facility] [place] [facility] [address] [facility] [address] Performing Lab: [facility] [address] [address] [facility] [address] [facility] BASIC METABOLIC PANEL (non-fast ing) GLUCOSE [MASS/VOLUM E] IN SERUM OR PLASMA 87 mg/dL 65 - 100 09/06 Specimen Type: SERUM No comment entered. Ordering Provider: JOSÉ RILEY Report Released Date/Time: Jul 16, 2024 02:39 PM Reporting Lab: [facility] [place] [facility] [address] [facility] [address] Performing Lab: [facility] [address] [facility] [address] [facility] BASIC METABOLIC PANEL (non-fast ing) SODIUM [MOLES/VOLU ME] IN SERUM OR PLASMA 137 mmol/L 135 - 145 09/06 Specimen Type: SERUM No comment entered. Ordering Provider: JOSÉ RILEY Report Released Date/Time: Jul 16, 2024 02:39 PM Reporting Lab: [address] [address] Performing Lab: [facility] [address] [facility] [address] [facility] BASIC METABOLIC PANEL (non-fast ing) POTASSIUM [MOLES/VOLU ME] IN SERUM OR PLASMA 4.6 mmol/L 3.5 - 5.0 09/06 Specimen Type: SERUM No comment entered. Ordering Provider: JOSÉ RILEY Report Released Date/Time: Jul 16, 2024 02:39 PM Reporting Lab: [address] [address] Performing Lab: [address] [address] [facility] BASIC METABOLIC PANEL (non-fast ing) CHLORIDE [MOLES/VOLU ME] IN SERUM OR PLASMA 97 mmol/L 100 - 110 09/06 L Specimen Type: SERUM No comment entered. Ordering Provider: JOSÉ RILEY Report Released Date/Time: Jul 16, 2024 02:39 PM Reporting Lab: [address] [address] Performing Lab: [address] [address] [facility] BASIC METABOLIC PANEL (non-fast ing) CARBON DIOXIDE, TOTAL [MOLES/VOLU ME] IN SERUM OR PLASMA 27 meq/L 20 - 30 09/06 Specimen Type: SERUM No comment entered. Ordering Provider: JOSÉ RILEY Report Released Date/Time: Jul 16, 2024 02:39 PM Reporting Lab: [address] [address] Performing Lab: [facility] [place] [facility] [address] [facility] [address] [facility] BASIC METABOLIC PANEL (non-fast ing) CREATININE [MASS/VOLUM E] IN SERUM OR PLASMA 0.89 mg/dL 0.50 - 1.40 09/06 Specimen Type: SERUM No comment entered. Ordering Provider: JOSÉ RILEY Report Released Date/Time: Jul 16, 2024 02:39 PM Reporting Lab: [facility] [place] [facility] [address] [facility] [address] Performing Lab: [facility] TRN [facility] [address] [facility] [address] [facility] BASIC METABOLIC PANEL (non-fast ing) GLOMERULAR FILTRATION RATE/1.73 SQ M.PREDICTED [VOLUME RATE/AREA] IN SERUM, PLASMA OR BLOOD BY CREATININE- BASED FORMULA (CKD-EPI 2020) >90mL/ min 60 09/06 Specimen Type: SERUM No comment entered. Ordering Provider: JOSÉ RILEY Report Released Date/Time: Jul 16, 2024 02:39 PM Reporting Lab: [facility]ENUSE[address] [address] Performing Lab: [facility] [address] [facility] [address] [facility] CBC LEUKOCYTES [#/VOLUME] IN BLOOD BY AUTOMATED COUNT 7.38 10*3/u L 4.50 - 11.00 09/06 Specimen Type: BLOOD No comment entered. Ordering Provider: BETSY BRADLEY Report Released Date/Time: Sep 01, 2024 12:06 PM Reporting Lab: [facility] TRN [facility]ENUSE[address] [address] Performing Lab: [facility]ENUSE[address] [address] [facility] CBC ERYTHROCYTE S [#/VOLUME] IN BLOOD BY AUTOMATED COUNT 5.30 10*6/u L 4.23 - 5.66 09/06 Specimen Type: BLOOD No comment entered. Ordering Provider: BETSY BRADLEY Report Released Date/Time: Sep 01, 2024 12:06 PM Reporting Lab: [facility] [address] [facility] [address] Performing Lab: [facility] [address] [address] [facility] [place] [facility] CBC HEMOGLOBIN [MASS/VOLUM E] IN BLOOD 17.9 g/dL 12.8 - 17 09/06 H Specimen Type: BLOOD No comment entered. Ordering Provider: BETSY BRADLEY Report Released Date/Time: Sep 01, 2024 12:06 PM Reporting Lab: [facility] [place] [facility] [address] [facility] [address] Performing Lab: [facility] [place] [address] [address] [facility] [place] [facility] CBC HEMATOCRIT [VOLUME FRACTION] OF BLOOD BY AUTOMATED COUNT 49.7 39.2 - 50.4 09/06 Specimen Type: BLOOD No comment entered. Ordering Provider: BETSY BRADLEY Report Released Date/Time: Sep 01, 2024 12:06 PM Reporting Lab: [facility] [place] [facility] [address] [facility] [address] Performing Lab: [facility] [place] [address] [address] [facility] [place] [facility] CBC MCV [ENTITIC VOLUME] BY AUTOMATED COUNT 93.8 fL 82 - 99 09/06 Specimen Type: BLOOD No comment entered. Ordering Provider: BETSY BRADLEY Report Released Date/Time: Sep 01, 2024 12:06 PM Reporting Lab: [facility] [place] [facility] [address] [facility] [address] Performing Lab: [facility] [place] [facility] [address] [facility] [address] [facility] [place] [facility] CBC MCHC [MASS/VOLUM E] BY AUTOMATED COUNT 36.0 g/dL 30.8 - 35.1 09/06 H Specimen Type: BLOOD No comment entered. Ordering Provider: BETSY BRADLEY Report Released Date/Time: Sep 01, 2024 12:06 PM Reporting Lab: [facility] [address] [facility] [address] Performing Lab: [facility] [address] [facility] [address] [facility] [place] [facility] CBC PLATELETS [#/VOLUME] IN BLOOD BY AUTOMATED COUNT 150 10*3/u L 140 - 360 09/06 Specimen Type: BLOOD No comment entered. Ordering Provider: BETSY BRADLEY Report Released Date/Time: Sep 01, 2024 12:06 PM Reporting Lab: [facility] [place] [facility] [address] [facility] [address] Performing Lab: [facility] [place] [address] [address] [facility] [place] [facility] CBC ERYTHROCYTE DISTRIBUTIO N WIDTH [RATIO] BY AUTOMATED COUNT 12.8 12.0 - 16.0 09/06 Specimen Type: BLOOD No comment entered. Ordering Provider: BETSY BRADLEY Report Released Date/Time: Sep 01, 2024 12:06 PM Reporting Lab: [facility] [place] [facility] [address] [facility] [address] Performing Lab: [facility] [place] [facility] [address] [facility] [address] [facility] [place] [facility] CBC MCH [ENTITIC MASS] BY AUTOMATED COUNT 33.8 pg 26.2 - 32.6 09/06 H Specimen Type: BLOOD No comment entered. Ordering Provider: BETSY BRADLEY Report Released Date/Time: Sep 01, 2024 12:06 PM Reporting Lab: [facility] [place] [facility] [address] [facility] [address] Performing Lab: [facility] [place] [address] [address] [facility] [place] [facility] LIPID PANEL, NON FASTING CHOLESTEROL [MASS/VOLUM E] IN SERUM OR PLASMA 154 mg/dL 09/06 Specimen Type: SERUM No comment entered. Ordering Provider: BETSY BRADLEY Report Released Date/Time: Sep 01, 2024 12:06 PM Reporting Lab: [facility] [address] [facility] [address] Performing Lab: [facility] [address] [address] [facility] LIPID PANEL, NON FASTING TRIGLYCERID E [MASS/VOLUM E] IN SERUM OR PLASMA 71 mg/dL 0 - 150 09/06 Specimen Type: SERUM No comment entered. Ordering Provider: BETSY BRADLEY Report Released Date/Time: Sep 01, 2024 12:06 PM Reporting Lab: [address] [address] Performing Lab: [facility] [address] [address] [facility] LIPID PANEL, NON FASTING CHOLESTEROL IN LDL [MASS/VOLUM E] IN SERUM OR PLASMA BY CALCULATION 67 mg/dL 0 - 129 09/06 Specimen Type: SERUM No comment entered. Ordering Provider: BETSY BRADLEY Report Released Date/Time: Sep 01, 2024 12:06 PM Reporting Lab: [facility]EN[facility] [address] Performing Lab: [facility]ITALN [facility]DRENUSE[address] [address] [facility] LIPID PANEL, NON FASTING CHOLESTEROL .TOTAL/CHOL ESTEROL IN HDL [MASS RATIO] IN SERUM OR PLASMA 2.1 09/06 Specimen Type: SERUM No comment entered. Ordering Provider: BETSY BRADLEY Report Released Date/Time: Sep 01, 2024 12:06 PM Reporting Lab: [facility]ENUSE[address] [address] Performing Lab: [facility] [place] [facility] [address] [facility] [address] [facility] [place] [facility] LIPID PANEL, NON FASTING CHOLESTEROL IN HDL [MASS/VOLUM E] IN SERUM OR PLASMA 73 mg/dL 40 - 60 09/06 H Specimen Type: SERUM No comment entered. Ordering Provider: BETSY BRADLEY Report Released Date/Time: Sep 01, 2024 12:06 PM Reporting Lab: [facility] [place] [facility] [address] [facility] [address] Performing Lab: [facility] [place] [facility] [address] [facility] [address] [facility] [place] [facility] LIVER FUNCTION PROTEIN [MASS/VOLUM E] IN SERUM OR PLASMA 7.1 g/dL 6.0 - 8.3 09/06 Specimen Type: SERUM No comment entered. Ordering Provider: BETSY BRADLEY Report Released Date/Time: Sep 01, 2024 12:06 PM Reporting Lab: [facility] [place] [facility] [address] [facility] [address] Performing Lab: [facility] [place] [facility] [address] [facility] [address] [facility] [place] [facility] LIVER FUNCTION ALBUMIN [MASS/VOLUM E] IN SERUM OR PLASMA 3.9 g/dL 3.5 - 5.0 09/06 Specimen Type: SERUM No comment entered. Ordering Provider: BETSY BRADLEY Report Released Date/Time: Sep 01, 2024 12:06 PM Reporting Lab: [facility] [place] [facility] [address] [facility] [address] Performing Lab: [facility] [place] [facility] [address] [facility] [address] [facility] [place] [facility] LIVER FUNCTION ALKALINE PHOSPHATASE [ENZYMATIC ACTIVITY/VO LUME] IN SERUM OR PLASMA 116 U/L 40 - 150 09/06 Specimen Type: SERUM No comment entered. Ordering Provider: BETSY BRADLEY Report Released Date/Time: Sep 01, 2024 12:06 PM Reporting Lab: [facility] [place] [facility] [address] [facility] [address] Performing Lab: [facility] [place] [facility] [address] [facility] [address] [facility] [place] [facility] LIVER FUNCTION ASPARTATE AMINOTRANSF ERASE [ENZYMATIC ACTIVITY/VO LUME] IN SERUM OR PLASMA 38 U/L 5 - 34 09/06 H Specimen Type: SERUM No comment entered. Ordering Provider: BETSY BRADLEY Report Released Date/Time: Sep 01, 2024 12:06 PM Reporting Lab: [facility] [place] [facility] [address] [facility] [address] Performing Lab: [facility] [place] [facility] [address] [facility] [address] [facility] [place] [facility] LIVER FUNCTION ALANINE AMINOTRANSF ERASE [ENZYMATIC ACTIVITY/VO LUME] IN SERUM OR PLASMA 29 U/L 09/06 Specimen Type: SERUM No comment entered. Ordering Provider: BETSY BRADLEY Report Released Date/Time: Sep 01, 2024 12:06 PM Reporting Lab: [facility] [place] [facility] [address] [facility] [address] Performing Lab: [facility] [place] [facility] [address] [facility] [address] [facility] [place] [facility] LIVER FUNCTION BILIRUBIN.T OTAL [MASS/VOLUM E] IN SERUM OR PLASMA 1.2 mg/dL 0.2 - 1.2 09/06 Specimen Type: SERUM No comment entered. Ordering Provider: BETSY BRADLEY Report Released Date/Time: Sep 01, 2024 12:06 PM Reporting Lab: [facility] [place] [facility] [address] [facility] [address] Performing Lab: [facility] [place] [facility] [address] [facility] [address] [facility] [place] [facility] LIVER FUNCTION BILIRUBIN.D IRECT [MASS/VOLUM E] IN SERUM OR PLASMA 0.6 mg/dL 0 - 0.5 09/06 H Specimen Type: SERUM No comment entered. Ordering Provider: BETSY BRADLEY Report Released Date/Time: Sep 01, 2024 12:06 PM Reporting Lab: [facility]DRENUSETS [address] [address] Performing Lab: [facility] [address] [facility] [address] [facility] COPEPTIN COPEPTIN 7.3 07/14 Specimen Type: SERUM Comment: REFERENCE RANGE: <= 13.7 pmol/L This test was developed and its analytical performance characteris tics have been determined by [employer] . It has not been cleared or approved by FDA. This assay has been validated pursuant to the CLIA regulations and is used for clinical purposes. Test performed by [employer] [place] [id number] Phone: [employer]er Meal: Estela Barlow MD,PHD,PATSY Test Reported by [facility], [employer] [facility], [address] [place] [address] Seamus Joseph M.D., Ph.D., Director of Laboratorie s , CLIA [id number] TEST PERFORMED AT: , Ordering Provider: JOSÉ RILEY Report Released Date/Time: Jul 13, 2024 09:00 AM Reporting [facility] [address] [address] Performing Lab: [facility] [address] [address] [facility] OSMOLALIT Y (SERUM) OSMOLALITY OF SERUM OR PLASMA 267 280 - 300 07/14 L Specimen Type: SERUM Comment: Manually entered by: RTO Ordering Provider: JOSÉ RILEY Report Released Date/Time: Jul 13, 2024 09:00 AM Reporting Lab: [facility] [address] [facility] [address] Performing Lab: [facility] [address] [facility] [address] [facility] OSMOLALIT Y (URINE) OSMOLALITY OF URINE 354 300 - 1000 07/14 Specimen Type: URINE Comment: Manually entered by: RTO Ordering Provider: JOSÉ RILEY Report Released Date/Time: Jul 13, 2024 09:00 AM Reporting Lab: [facility] [address] [facility] [address] Performing Lab: [facility] [address] [facility] [address] [facility] BASIC METABOLIC PANEL (non-fast ing) UREA NITROGEN [MASS/VOLUM E] IN SERUM OR PLASMA 15 mg/dL 7 - 25 07/14 Specimen Type: SERUM No comment entered. Ordering Provider: JOSÉ RILEY Report Released Date/Time: Jul 13, 2024 09:00 AM Reporting Lab: [facility] [address] [facility] [address] Performing Lab: [facility] [address] [facility] [address] [facility] BASIC METABOLIC PANEL (non-fast ing) GLUCOSE [MASS/VOLUM E] IN SERUM OR PLASMA 95 mg/dL 65 - 100 07/14 Specimen Type: SERUM No comment entered. Ordering Provider: JOSÉ RILEY Report Released Date/Time: Jul 13, 2024 09:00 AM Reporting Lab: [facility] [address] [facility] [address] Performing Lab: [facility] [address] [facility] [address] [facility] BASIC METABOLIC PANEL (non-fast ing) SODIUM [MOLES/VOLU ME] IN SERUM OR PLASMA 128 mmol/L 135 - 145 07/14 L Specimen Type: SERUM No comment entered. Ordering Provider: JOSÉ RILEY Report Released Date/Time: Jul 13, 2024 09:00 AM Reporting Lab: [facility] [address] [facility] [address] Performing Lab: [facility] [address] [facility] [address] [facility] BASIC METABOLIC PANEL (non-fast ing) POTASSIUM [MOLES/VOLU ME] IN SERUM OR PLASMA 4.9 mmol/L 3.5 - 5.0 07/14 Specimen Type: SERUM No comment entered. Ordering Provider: JOSÉ RILEY Report Released Date/Time: Jul 13, 2024 09:00 AM Reporting Lab: [facility] [address] [facility] [address] Performing Lab: [facility] [address] [facility] [address] [facility] BASIC METABOLIC PANEL (non-fast ing) CHLORIDE [MOLES/VOLU ME] IN SERUM OR PLASMA 88 mmol/L 100 - 110 07/14 L Specimen Type: SERUM No comment entered. Ordering Provider: JOSÉ RILEY Report Released Date/Time: Jul 13, 2024 09:00 AM Reporting Lab: [facility] [address] [facility] [address] Performing Lab: [facility] [address] [facility] [address] [facility] BASIC METABOLIC PANEL (non-fast ing) CARBON DIOXIDE, TOTAL [MOLES/VOLU ME] IN SERUM OR PLASMA 24 meq/L 20 - 30 07/14 Specimen Type: SERUM No comment entered. Ordering Provider: JOSÉ RILEY Report Released Date/Time: Jul 13, 2024 09:00 AM Reporting Lab: [facility] [address] [facility] [address] Performing [facility]: [facility] [address] [address] [facility] BASIC METABOLIC PANEL (non-fast ing) CREATININE [MASS/VOLUM E] IN SERUM OR PLASMA 0.91 mg/dL 0.50 - 1.40 07/14 Specimen Type: SERUM No comment entered. Ordering Provider: RILEY,ALIC E Report Released Date/Time: Jul 13, 2024 09:00 AM Reporting Lab: [facility] [place] [facility] [address] [facility] [address] Performing Lab: [facility] [place] [facility] [address] [facility] [address] [facility] BASIC METABOLIC PANEL (non-fast ing) GLOMERULAR FILTRATION RATE/1.73 SQ M.PREDICTED [VOLUME RATE/AREA] IN SERUM, PLASMA OR BLOOD BY CREATININE- BASED FORMULA (CKD-EPI 2020) 90 mL/min 60 07/14 Specimen Type: SERUM No comment entered. Ordering Provider: JOSÉ RILEY Report Released Date/Time: Jul 13, 2024 09:00 AM Reporting Lab: [facility] [place] [facility] [address] [facility] [address] Performing Lab: [facility] [address] [facility] [address] [facility] SODIUM RANDOM URINE SODIUM, URINE 53 mmol/L 20 - 400 07/14 Specimen Type: URINE No comment entered. Ordering Provider: JOSÉ RILEY Report Released Date/Time: Jul 13, 2024 09:00 AM Reporting Lab: [facility] [place] [facility] [address] [facility] [address] Performing Lab: [facility] [address] [facility] [address] [facility] THYROID T4 FREE(FT4) (WROX) THYROXINE (T4) FREE [MASS/VOLUM E] IN SERUM OR PLASMA 1.38 ng/dL 0.6 - 1.6 07/12 Specimen Type: SERUM No comment entered. Ordering Provider: JOSÉ RILEY Report Released Date/Time: Jul 09, 2024 10:34 AM Reporting Lab: [facility] [place] [facility] [address] [facility] [address] Performing Lab: [facility] [place] [facility] [address] [facility] [address] [facility] Vital Signs Combined list of inpatient and [...] Disposition Source 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
RHONDA RILEY 04/21 [facility] En[facility] [id number] 04/26 [facility] En[facility] [id number] 05/19 [facility] DENTAL PANORAMIC IMAGE [id number] Diagnos is: ICD-10- CM K05.323 Chronic periodo ntitis, general ized, severe< br/> RISSA ALY AM 05/20 [facility] En[facility] [id number] 06/06 [facility] En[facility] [id number] 09/04 [facility] OFFICE O/P EST LOW 20-29 MIN [id number] Diagnos is: ICD-10- CM R91.1 Solitar y pulmona ry nodule< br/> Meseret BRADLEY 09/11 [facility] Outpatient Encounter [id number] 10/04 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
RHONDA RILEY 10/23 [facility] Outpatient Encounter [id number] 10/25 [facility] En[facility] [id number] 11/04 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
RHONDA RILEY 01/20 [facility] En[facility] [id number] 01/20 [facility] En[facility] [id number] 01/24 [facility] En[facility] [id number] 03/04 [facility] OFFICE O/P EST LOW 20 MIN [id number] Diagnos is: ICD-10- CM R91.1 Solitar y pulmona ry nodule< br/> Meseret BRADLEY 03/12 [facility] En[facility] [id number] 03/24 [facility] En[facility] [id number] 04/01 [facility] En[facility] [id number] 07/13 [facility] Encounter [id number] Diagnos is: ICD-10- CM 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<b r/> RHONDA RILEY 07/13 [facility] En[facility] [id number] 07/16 [facility] OFFICE O/P EST MOD 30 MIN [id number] Diagnos is: ICD-10- CM 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<b r/> RHONDA RILEY 07/22 [facility] [place] ADMIN [id number] Diagnos is: ICD-10- CM E03.9 Hypothy roidism , unspeci fied
SALENARUMA AlmaguerN Nathaniel Sherry 07/22 [facility] Outpatient Encounter [id number] 09/08 [facility] OFFICE O/P EST HI 40 MIN [id number] 1. Diagnos is: ICD-10- CM J44.9 Chronic obstruc tive pulmona ry disease , unspeci fied
Meseret BRADLEY J 09/14 [facility] Outpatient Encounter [id number] 09/14 [facility] HC PRO PHONE CALL 11-20 MIN [id number] Diagnos is: ICD-10- CM J44.9 Chronic obstruc tive pulmona ry disease , unspeci fied
JARMOLOWIC Z,ITA 09/17 [facility] Social History Combined list of available smoking, tobacco, and other social history from Department of Defense and Veterans Affairs facilities. Social History Type Response Date Comment Sourc e Tobacco smoking status ALIS VA-TOBACCO USE EVERY DAY CIGARETTES 09/14/2024 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 Additional future care activities may be listed in the Assessment and Plan section. Date/Time Care Activity Care Activity Detail Facili ty 10/21/2024 AMBULATORY - NONE AMBULATORY - NONE [facility] 01/20/2025 AMBULATORY - MEDICINE [facility] 09/14/2024 Consult Order [facility]ON[facility] Cons Clinic Director's Choice [facility] 10/21/2024 Imaging - CT Scan Order CT THORAX W/O CON T [facility]
[2024-10-18 10:35] VITALS: PULSE 97; O2SAT 78
== END 2024-10-18 10:55 | disposition home or self-care (01) ==
PROVIDERS: PCP Nurse Practitioner Family; Visit Provider Internal Medicine Pulmonary Disease
DX: J44.9 Chronic obstructive pulmonary disease, unspecified (principal); Z99.81 Dependence on supplemental oxygen; R91.8 Other nonspecific abnormal finding of lung field
CPT/HCPCS: 94618; 99204

== ENCOUNTER → 2024-10-18 09:34 | Outpatient (BNVA) | payer OTHER, SELFPAY | PROVIDERS: PCP Nurse Practitioner Family; Visit Provider Internal Medicine Pulmonary Disease | DX: J44.9 Chronic obstructive pulmonary disease, unspecified (principal); R91.8 Other nonspecific abnormal finding of lung field; R06.09 Other forms of dyspnea; Z99.81 Dependence on supplemental oxygen | CPT/HCPCS: 94618; 99202 ==

== ENCOUNTER → 2024-11-19 08:12 | Outpatient (REF) | payer OTHER, SELFPAY ==
--- NOTE | 2024-11-19 08:15 | CA_ITS ---
Transthoracic Echocardiogram Patient (Last, First, Middle): Dickson Em J Gender: Male Date of : 1955 Age: 69 Procedure Date: 11/19/2024 Procedure Type: Transthoracic Echocardiogram Location: OP Height: 172.72 cm Weight: 88.45 kg BSA: 2.02 m2 Heart Rate: 97 bpm BP: 154 / 70 mmHg Blood And Plasma Laboratory Assistant: SB Referring MD: Salvador Ramos MD Signal Intelligence[employer] War[employer]: Panchito Draper MD Symptoms: R06.09 - Other forms of dyspnea Study Quality: Adequate w contrast ECG Rhythm: Sinus Conclusions: - 1. Normal LV ejection fraction of greater than 70% with impaired relaxation filling pattern 2. Normal cardiac valvular Dopplers 3. Mildly dilated ascending aorta 4. No gross pericardial effusion Findings Procedure Information Contrast agent, definity, is being given per protocol without apparent complications. The quality of the study was technically difficult. The study quality is limited by lung artifact. Left Ventricle Normal left ventricular cavity size. There is normal left ventricular wall thickness. The left ventricular systolic function is hyperdynamic. The visually estimated ejection fraction is >70%. Spectral Doppler is indicative of an impaired relaxation filling pattern. E/E prime ratio is between 8 and 15 consistent with indeterminate filling pressures. Right Ventricle Normal right ventricular cavity size and systolic function. Atria The left atrium is likely dilated. There is no evidence of interatrial shunt. The right atrium is likely dilated. Aortic Valve Normal aortic valve structure and function. There is no aortic valve stenosis. There is no aortic valve regurgitation. Mitral Valve Normal mitral valve structure and function. There is trace mitral valve regurgitation. There is no mitral valve stenosis. Tricuspid Valve Likely normal tricuspid valve structure and function. Tricuspid regurgitation envelope is inadequate for calculation of right ventricular systolic pressure. Normal right atrial pressure. Great Vessels The pulmonary artery was not well visualized. There is mild dilatation of the ascending aorta measuring 4.20 cm. Venous The inferior vena cava is normal in size and collapses greater than 50% with inspiration. Pericardium/Pleural There is no evidence of pericardial effusion. Prior Study Comparison No prior study available for comparison. Measurements 2D Linear Measurements IVSd: 1.01 0.6-0.9/0.6-1.0 cm LVIDd: 4.47 3.9-5.3/4.2-5.9 cm LVIDd Index: 2.21 2.4-3.2/2.2-3.1 cm/m2 LVIDs: 2.64 2.0-3.6 cm LVPWd: 0.82 0.7-1.1 cm LA Diam: 3.60 2.7-3.8/3.0-4.0 cm LAIDs Index: 1.78 1.5-2.3 cm/m2 LV Mass: 167.16 67-162/88-224 g LV Mass Index: 82.75 43-95/49-115 g/m2 LVOT Diam: 2.10 3.0+(-)1.3 cm 2D Systolic Function EF 4C: 73.80 >55% EF 2C: 72.30 >55% EF BiP: 73.50 >55% Mitral Valve MV Pk E: 0.93 MV PK A: 0.96 MV Decel Time: 218.00 E/A: 1.00 E'Lateral: 7.62 E'Medial: 6.85 E/E' Med: 13.60 E/E' Lat: 12.30 PHT: 64.00 MVA PHT: 3.44 Decel Nuckolls: 4.29 Aortic Valve AoV Pk Navid: 1.71 AoV Pk Grad: 12.00 MICA: 3.29 AI Pk Navid: 3.58 AI Nuckolls: 2.17 LVOT LVOT Pk Navid: 1.63 LVOT Mn Navid: 1.11 LVOT VTI: 0.28 LVOT Pk Grad: 11.00 LVOT Mn Grad: 6.00 LVOT Diam: 2.10 LVOT Area: 3.46 Diastolic Function MV Pk E: 0.93 MV Pk A: 0.96 E/A: 1.00 E'Medial: 6.85 E/E' Med: 13.60 E' Laterial: 7.62 E/E' Lat: 12.30 Right Ventricle TAPSE (mm): 18.00 TVS' Navid: 13.50 Tricuspid Valve RA Press: 3.00 Great Vessels Aorta Sinus of Valsalva: 3.60 2.0-3.5 cm Ao Asc: 4.20 2.1-3.4 cm Pulmonary Veins Pulm Vein S/D 1.40 Pulmonary Valve PV Pk Navid: 1.00 Peak PV Grad: 4.00 Updated in Other Vendor System with Status of Final Panchito Draper MD electronically signed on 11/20/2024 1:22:22 PM with status of Final
--- OUTSIDE RECORDS SUMMARY | 2024-11-19 08:21 | XMS_ITS | Clinical Summary ---
Author Organization [facility] Facility Address [address] [place] [address] Care Team Providers Care Insurance Checker Name Role Phone Unavailable Primary Care Provider Unavailabl e Social History Tobacco Use Types Packs/Day Years Used Date Smoking Tobacco: Never Assessed Sex and Gender Information Value Date Recorded Sex Assigned at Not on file Legal Sex Male 8:46 AM EST Gender Identity Not on file Sexual Orientation Not on file Plan of Treatment Health Maintenance Due Date Last Done Comments Colorectal Cancer Screening: Annual FOBT 2002 Colorectal Cancer Screening: Colonoscopy 2002 Colorectal Cancer Screening: Sigmoidoscopy 2002 Pneumococcal Vaccine: 65+ Years (3 of 3 - PPSV23 or PCV20) 04/16/2023 05/03/2019, 04/16/2018 Influenza Vaccine (#1) 2024 Hepatitis B Vaccine Aged Out No longe r eligible based on patient's age to complete this topic Insurance [facility] 1,2,3 (VACCN) [facility] 1,2,3 (VACCN)
--- OUTSIDE RECORDS SUMMARY | 2024-11-19 08:21 | XMS_ITS | Continuity of Care Document ---
Author Name [facility] Organization [facility] Care Team Providers Care Battery Charger Name Role Phone [facility] Unavailable Unavailable Problems Combined list of problems [...] [place] [facility] Diagnosis or Condition Deferred on [place] I Active Condition [facility] [place] Diplopia Active Condition [facility] [place] [facility] Dyspnea (SCT [id number]) Active Condition Jan 02, 2018 Entered By: JOHN APONTE Comment: likely COPD related to chronic smoking >40 yrs. cutting down from 5 cigars to 5 cigarettes [facility] [place] [facility] Elevated blood-pressure reading without diagnosis of hypertension Active Condition [facility] [place] HTN - Hypertension (SCT [id number]) Active Condition [facility] [place] Hyperlipidemia (SCT [id number]) Active Condition Nov 06, 2018 Entered By: GIN BRADLEY Comment: address next visitDec 07, 2020 Entered By: GIN BRADLEY Comment: start atorvastatin 20mg qhs [facility] [place] Hyponatremia Active Condition [facility] [place] Hypothyroid Active Condition [facility] [place] [facility] Multiple nodules of lung Active [facility] [place] [facility] Osteoporosis Active Condition [facility] [place] [facility] Polyp Colon (SCT [id number]) Active Condition Jun 04, 2019 Entered By: GIN BRADLEY Comment: c-scope 06/02/19 normal exam, repeat May 2029 [facility] [place] [facility] Solitary nodule of lung Active Condition Nov 09, 2024 Entered By: GIN BRADLEY Comment: 7.4mm right upper lobe, repeat due january 2025 [facility] [place] [facility] Tobacco user Active Condition [facility] [place] [facility] Diagnosis: ICD-10-CM J44.9 Chronic obstructive pulmonary disease, unspecified Active Diagnosis [facility] [place] [facility] Diagnosis: ICD-10-CM E03.9 Hypothyroidism, unspecified Active Diagnosis [facility] [place] [facility] Diagnosis: ICD-10-CM E87.1 Hypo-osmolality and hyponatremia Active Diagnosis [facility] [place] [facility] Diagnosis: ICD-10-CM R91.1 Solitary pulmonary nodule Active Diagnosis [facility] [place] [facility] Diagnosis: ICD-10-CM M81.0 Age-related osteoporosis w/o current pathological fracture Active Diagnosis [facility] [place] [facility] Diagnosis: ICD-10-CM D35.2 Benign neoplasm of pituitary gland [facility] [place] [facility] Diagnosis: ICD-10-CM K05.323 Chronic periodontitis, generalized, severe Active Diagnosis [facility] [place] [facility] Medications Combined list of outpatient medications from [...] G RESPIR ATORY (INHAL ATION) ACTIVE 09/15/2025 [id number] SEHRLYN BRADLEY 2024 3 [facility] [place] ALBUTEROL 90MCG/ACTUA T (CFC-F) INHL,ORAL,8 .5GM DOSE COUNTER INHALE 2 PUFFS BY MOUTH EVERY 4 HOURS NEEDED FOR BREATHIN G RESPIR ATORY (INHAL ATION) DISCONT INUED 01/21/2025 [id number] 4 BERNARDINO NIELSEN 2023 3 [facility] [place] [facility] [facility] ALBUTEROL 90MCG/ACTUA T (CFC-F) INHL,ORAL,8 .5GM DOSE COUNTER INHALE 2 PUFFS BY MOUTH EVERY 4 HOURS NEEDED RESPIR ATORY (INHAL ATION) DISCONT INUED 01/10/2024 [id number] 4 SHERLYN BRADLEY 2022 1 [facility] [place] [facility] ALBUTEROL SO4 0.083% INHL,3ML INHALE 1 AMPULE IN NEBULIZE R EVERY 6 HOURS NEEDED FOR BREATHIN G RESPIR ATORY (INHAL ATION) ACTIVE 09/15/2025 [id number] SHERLYN BRADLEY 2023 120 [facility] [place] [facility] [facility] ATORVASTATI N CA 40MG TAB TAKE ONE-HALF TABLET BY MOUTH ONCE DAILY FOR CHOLESTE ROL ORAL ACTIVE 09/15/2025 [id number] 4 SHERLYN BRADLEY 2023 45 [facility] [place] [facility] ATORVASTATI N CA 40MG TAB TAKE ONE-HALF TABLET BY MOUTH ONCE DAILY FOR CHOLESTE ROL ORAL DISCONT INUED 09/11/2024 [id number] 4 SHERLYN BRADLEY 2022 45 [facility] [place] [facility] [facility] CALCIUM 200MG (CA CITRATE-950 MG) TAB TAKE THREE TABLETS BY MOUTH TWICE DAILY ORAL ACTIVE 12/13/2024 [id number] 4 SHERLYN BRADLEY 2023 540 [facility] [place] [facility] CALCIUM 200MG (CA CITRATE-950 MG) TAB TAKE THREE TABLETS BY MOUTH TWICE DAILY ORAL DISCONT INUED 10/07/2024 [id number] RILEY,AL ICE 2023 540 [facility] [place] [facility] CHOLECALCIF UNA 25MCG (1,000UNIT) TAB TAKE ONE TABLET BY MOUTH ONCE DAILY FOR VITAMIN SUPPLEME NTATION ORAL ACTIVE 12/13/2024 [id number] 4 SHERLYN BRADLEY 2023 90 [facility] [place] [facility] CHOLECALCIF UNA 25MCG (1,000UNIT) TAB TAKE ONE TABLET BY MOUTH ONCE DAILY FOR VITAMIN SUPPLEME NTATION ORAL DISCONT INUED 10/07/2024 [id number] RILEY,AL ICE 2023 90 [facility] [place] [facility] CHOLECALCIF UNA 25MCG (1,000UNIT) TAB TAKE ONE TABLET BY MOUTH ONCE DAILY FOR VITAMIN SUPPLEME NTATION ORAL 04/26/2024 [id number] RILEY,ID ICE 2022 90 [facility] DEMECLOCYCL INE HCL 150MG TAB TAKE ONE TABLET BY MOUTH TWICE DAILY FOR INFECTIO N ORAL ACTIVE 07/17/2025 [id number] RILEY,ID ICE 2023 180 [facility] [place] [facility] FLUTICASONE 250MCG/SALM ETEROL 50MCG INHL,ORAL,D ISKUS,60 INHALE 1 PUFF BY MOUTH TWICE DAILY - RINSE MOUTH AFTER USE REPLAC ES SYMBICOR T (BUDESON NAVID/FORM OTEROL)* * RESPIR ATORY (INHAL ATION) ACTIVE 09/15/2025 [id number] 5 SHERLYN BRADLEY 2023 1 [facility] [place] [facility] [facility] FLUTICASONE 250MCG/SALM ETEROL 50MCG INHL,ORAL,D ISKUS,60 INHALE 1 PUFF BY MOUTH TWICE DAILY - RINSE MOUTH AFTER USE REPLAC ES SYMBICOR T (BUDESON NAVID/FORM OTEROL)* * RESPIR ATORY (INHAL ATION) DISCONT INUED 12/04/2024 [id number] 4 SHERLYN BRADLEY 2023 1 [facility] [place] [facility] FLUTICASONE 250MCG/SALM ETEROL 50MCG INHL,ORAL,D ISKUS,60 INHALE 1 PUFF BY MOUTH TWICE DAILY - RINSE MOUTH AFTER USE REPLAC ES SYMBICOR T (BUDESON NAVID/FORM OTEROL)* * RESPIR ATORY (INHAL ATION) DISCONT INUED 10/02/2023 [id number] 3 BERNARDINO NIELSEN 2021 1 [facility] [place] [facility] FUROSEMIDE 40MG TAB TAKE ONE TABLET BY MOUTH ONCE DAILY TO REMOVE FLUID/CO NTROL BLOOD PRESSURE ORAL ACTIVE 10/19/2025 [id number] ASAD GUERRERO BEATRICE 2024 30 [facility] [place] LEVOTHYROXI NE NA 88MCG TAB (SYNTHROID) TAKE ONE TABLET BY MOUTH EVERY MORNING 30 MINUTES BEFORE BREAKFAS T TAKE ON AN EMPTY STOMACH WITH A FULL GLASS OF WATER ORAL ACTIVE 09/15/2025 [id number] 4 SHERLYN BRADLEY 2023 90 [facility] [place] [facility] LEVOTHYROXI NE NA 88MCG TAB (SYNTHROID) TAKE ONE TABLET BY MOUTH EVERY MORNING 30 MINUTES BEFORE BREAKFAS T TAKE ON AN EMPTY STOMACH WITH A FULL GLASS OF WATER ORAL DISCONT INUED 12/29/2024 [id number] 4 SHERLYN BRADLEY 2023 90 [facility] [place] [facility] LEVOTHYROXI NE NA 88MCG TAB (SYNTHROID) TAKE ONE TABLET BY MOUTH EVERY MORNING 30 MINUTES BEFORE BREAKFAS T TAKE ON AN EMPTY STOMACH WITH A FULL GLASS OF WATER ORAL DISCONT INUED 11/05/2023 [id number] 3 SHERLYN BRADLEY 2022 90 [facility] [place] [facility] LISINOPRIL 30MG TAB TAKE ONE TABLET BY MOUTH ONCE DAILY TO CONTROL BLOOD PRESSURE NOTE NEW TABLET STRENGTH ORAL ACTIVE 09/15/2025 [id number] 4 SHERLYN BRADLEY 2023 90 [facility] LISINOPRIL 30MG TAB TAKE ONE TABLET BY MOUTH ONCE DAILY TO CONTROL BLOOD PRESSURE NOTE NEW TABLET STRENGTH ORAL DISCONT INUED 09/11/2024 [id number] 4 SHERLYN BRADLEY 2022 90 [facility] NAPROXEN 500MG TAB TAKE ONE TABLET BY MOUTH EVERY 12 HOURS NEEDED TAKE WITH FOOD; FOR PAIN/INF LAMMATIO N/SWELLI NG ORAL ACTIVE 03/13/2025 [id number] SHERLYN BRADLEY 2023 60 [facility] OXYGEN MISCELLANEO US USE DIRECTED NOT APPLIC ABLE ACTIVE SHERLYN BRADLEY 2024 [facility] PREDNISONE 20MG TAB TAKE ONE TABLET BY MOUTH ONCE DAILY FOR ASTHMA ORAL 10/14/2024 [id number] SHERLYN BRADLEY 2023 7 [facility] TIOTROPIUM 2.5MCG/ACTU AT INHL,ORAL,6 0D,4GM INHALE 2 PUFFS BY MOUTH ONCE DAILY THIS REPLACES TIOTROPI UM HANDIHAL ER CAPSULES RESPIR ATORY (INHAL ATION) ACTIVE 09/15/2025 [id number] 5 SHERLYN BRADLEY 2024 3 [facility] TIOTROPIUM 2.5MCG/ACTU AT INHL,ORAL,6 0D,4GM INHALE 2 PUFFS BY MOUTH ONCE DAILY THIS REPLACES TIOTROPI UM HANDIHAL ER CAPSULES RESPIR ATORY (INHAL ATION) DISCONT INUED 09/11/2024 [id number] 4 SHERLYN BRADLEY 2022 3 [facility] Allergies, Adverse Reactions, Alerts Combined list of allergies from Department of Defense and Veterans Affairs facilities. It does not include entries that were removed or entered in error. Substance Category Reaction Severity Reaction type Status Date Reported Comments Source HCTZ HYDROCHLOROTH IAZIDE Propensity to adverse reactions to drug (finding) active 8 [facility] [place] Immunizations Combined list of available immunizations from the Department of Defense and Veterans Affairs facilities. Immunization Series Date Given Administered By Site Reaction Lot Number CVX Code Drug Relay Operator Status Comments Source COVID-19 (MODERNA), MRNA, LNP-S, PF, 50 MCG/0.5 ML (AGES 12+ YEARS) 2023 ZANVETTOR,PADMINI LAURA RIGHT DELTO ID [id number] 312 complet ed [facility] INFLUENZA, HIGH-DOSE, TRIVALENT, PF 2023 RADHA ZHANG LEFT DEL[place] ID [id number] 135 complet ed [facility] [place] PNEUMOCOCCAL CONJUGATE PCV20, POLYSACCHARID E [id number] CONJUGATE, ADJUVANT, PF 2023 ZANVETTOR,PADMINI LAURA RIGHT DEL[place] ID [id number] 216 complet ed [facility] [place] COVID-19 (MODERNA), MRNA, LNP-S, PF, 50 MCG/0.5 ML (AGES 12+ YEARS) 2022 ZANVETTOR,PADMINI LAURA LEFT DELTO ID [id number] 312 complet ed [facility] INFLUENZA, HIGH-DOSE, QUADRIVALENT 2022 ZANVETTOR,PADMINI LAURA RIGHT [place] ID [id number] 197 complet ed [facility] [place] INFLUENZA VACCINE, QUADRIVALENT, ADJUVANTED 2021 ZANVETTOR,PADMINI LAURA RIGHT DELTO ID [id number] 205 complet ed [facility] [place] INFLUENZA VACCINE, QUADRIVALENT, ADJUVANTED 2020 205 complet ed [facility] COVID-19 (MODERNA), MRNA, LNP-S, PF, 100 MCG OR 50 MCG DOSE 3 2020 207 complet ed [facility] COVID-19 (PFIZER), MRNA, LNP-S, PF, 30 MCG/0.3 ML DOSE 2 2020 208 complet ed PFR; [id number]; 1 [facility] [place] COVID-19 (PFIZER), MRNA, LNP-S, PF, 30 MCG/0.3 ML DOSE 1 2020 208 complet ed PFR; [id number]; 1 [facility] [place] [...] Jul 16, 2024 02:39 PM Reporting Lab: [address] [address] Performing Lab: [address] [address] [facility] BASIC METABOLIC PANEL (non-fast ing) GLUCOSE [MASS/VOLUM E] IN SERUM OR PLASMA 87 mg/dL 65 - 100 09/06 Specimen Type: SERUM No comment entered. Ordering Provider: JOSÉ RILEY Report Released Date/Time: Jul 16, 2024 02:39 PM Reporting Lab: [facility] [address] [facility] [address] Performing Lab: [facility] [address] [facility] [address] [facility] BASIC METABOLIC PANEL (non-fast ing) SODIUM [MOLES/VOLU ME] IN SERUM OR PLASMA 137 mmol/L 135 - 145 09/06 Specimen Type: SERUM No comment entered. Ordering Provider: JOSÉ RILEY Report Released Date/Time: Jul 16, 2024 02:39 PM Reporting Lab: [address] [address] Performing Lab: [facility] [address] [address] [facility] BASIC METABOLIC PANEL (non-fast ing) POTASSIUM [MOLES/VOLU ME] IN SERUM OR PLASMA 4.6 mmol/L 3.5 - 5.0 09/06 Specimen Type: SERUM No comment entered. Ordering Provider: JOSÉ RILEY Report Released Date/Time: Jul 16, 2024 02:39 PM Reporting Lab: [facility] [address] [facility] [address] Performing Lab: [facility] [address] [address] [facility] BASIC METABOLIC PANEL (non-fast ing) CHLORIDE [MOLES/VOLU ME] IN SERUM OR PLASMA 97 mmol/L 100 - 110 09/06 L Specimen Type: SERUM No comment entered. Ordering Provider: JOSÉ RILEY Report Released Date/Time: Jul 16, 2024 02:39 PM Reporting Lab: [facility] [address] [place] [address] Performing Lab: [facility] [place] [place] [facility] [address] [facility] [address] [facility] BASIC METABOLIC PANEL (non-fast ing) CARBON DIOXIDE, TOTAL [MOLES/VOLU ME] IN SERUM OR PLASMA 27 meq/L 20 - 30 09/06 Specimen Type: SERUM No comment entered. Ordering Provider: JOSÉ RILEY Report Released Date/Time: Jul 16, 2024 02:39 PM Reporting Lab: [facility] [address] [facility] [address] Performing Lab: [facility] TRN [facility] [address] [facility] [address] [facility] BASIC METABOLIC PANEL (non-fast ing) CREATININE [MASS/VOLUM E] IN SERUM OR PLASMA 0.89 mg/dL 0.50 - 1.40 09/06 Specimen Type: SERUM No comment entered. Ordering Provider: JOSÉ RILEY Report Released Date/Time: Jul 16, 2024 02:39 PM Reporting Lab: [facility] [address] [facility] [address] Performing Lab: [facility] CENTERUSE[address] [address] [facility]USE [facility] BASIC METABOLIC PANEL (non-fast ing) GLOMERULAR FILTRATION RATE/1.73 SQ M.PREDICTED [VOLUME RATE/AREA] IN SERUM, PLASMA OR BLOOD BY CREATININE- BASED FORMULA (CKD-EPI 2020) >90mL/ min 60 09/06 Specimen Type: SERUM No comment entered. Ordering Provider: JOSÉ RILEY Report Released Date/Time: Jul 16, 2024 02:39 PM Reporting Lab: [facility]ENTER[facility]ETS [facility] [address] [facility] [address] Performing Lab: [facility]ENTERUSE[address] [address] [facility]ERN [facility]USE [facility] CBC LEUKOCYTES [#/VOLUME] IN BLOOD BY AUTOMATED COUNT 7.38 10*3/u L 4.50 - 11.00 09/06 Specimen Type: BLOOD No comment entered. Ordering Provider: BETSY BRADLEY Report Released Date/Time: Sep 01, 2024 12:06 PM Reporting Lab: [facility] [place] [facility] [address] [facility] [address] Performing Lab: [facility] [place] [address] [address] [facility] [place] [facility] CBC ERYTHROCYTE S [#/VOLUME] IN BLOOD BY AUTOMATED COUNT 5.30 10*6/u L 4.23 - 5.66 09/06 Specimen Type: BLOOD No comment entered. Ordering Provider: BETSY BRADLEY Report Released Date/Time: Sep 01, 2024 12:06 PM Reporting Lab: [facility] [place] [address] [address] Performing Lab: [facility] [place] [address] [address] [facility] [place] [facility] CBC HEMOGLOBIN [MASS/VOLUM E] IN BLOOD 17.9 g/dL 12.8 - 17 09/06 H Specimen Type: BLOOD No comment entered. Ordering Provider: BETSY BRADLEY Report Released Date/Time: Sep 01, 2024 12:06 PM Reporting Lab: [facility] [place] [address] [address] Performing Lab: [facility] [place] [address] [address] [facility] [place] [facility] CBC HEMATOCRIT [VOLUME FRACTION] OF BLOOD BY AUTOMATED COUNT 49.7 39.2 - 50.4 09/06 Specimen Type: BLOOD No comment entered. Ordering Provider: BETSY BRADLEY Report Released Date/Time: Sep 01, 2024 12:06 PM Reporting Lab: [facility] [place] [address] [address] Performing Lab: [facility] [place] [address] [address] [facility] [place] [facility] CBC MCV [ENTITIC VOLUME] BY AUTOMATED COUNT 93.8 fL 82 - 99 09/06 Specimen Type: BLOOD No comment entered. Ordering Provider: BETSY BRADLEY Report Released Date/Time: Sep 01, 2024 12:06 PM Reporting Lab: [facility] [place] [facility] [address] [facility] [address] Performing Lab: [facility] [place] [facility] [address] [facility] [address] [facility] [place] [facility] CBC MCHC [MASS/VOLUM E] BY AUTOMATED COUNT 36.0 g/dL 30.8 - 35.1 09/06 H Specimen Type: BLOOD No comment entered. Ordering Provider: BETSY BRADLEY Report Released Date/Time: Sep 01, 2024 12:06 PM Reporting Lab: [facility] [place] [address] [address] Performing Lab: [facility] [place] [facility] [address] [facility] [address] [facility] [place] [facility] CBC PLATELETS [#/VOLUME] IN BLOOD BY AUTOMATED COUNT 150 10*3/u L 140 - 360 09/06 Specimen Type: BLOOD No comment entered. Ordering Provider: BETSY BRADLEY Report Released Date/Time: Sep 01, 2024 12:06 PM Reporting Lab: [facility] [place] [address] [address] Performing Lab: [facility] [place] [facility] [address] [facility] [address] [facility] [place] [facility] CBC ERYTHROCYTE DISTRIBUTIO N WIDTH [RATIO] BY AUTOMATED COUNT 12.8 12.0 - 16.0 09/06 Specimen Type: BLOOD No comment entered. Ordering Provider: BETSY BRADLEY Report Released Date/Time: Sep 01, 2024 12:06 PM Reporting Lab: [facility] [place] [address] [address] Performing Lab: [facility] [place] [address] [address] [facility] [place] [facility] CBC MCH [ENTITIC MASS] BY AUTOMATED COUNT 33.8 pg 26.2 - 32.6 09/06 H Specimen Type: BLOOD No comment entered. Ordering Provider: BETSY BRADLEY Report Released Date/Time: Sep 01, 2024 12:06 PM Reporting Lab: [facility] [place] [address] [address] Performing Lab: [facility] [place] [address] [address] [facility]ERN [place] [facility] LIPID PANEL, NON FASTING CHOLESTEROL [MASS/VOLUM E] IN SERUM OR PLASMA 154 mg/dL 09/06 Specimen Type: SERUM No comment entered. Ordering Provider: BETSY BRADLEY Report Released Date/Time: Sep 01, 2024 12:06 PM Reporting Lab: [facility]ENTERTRN [place] [address] [address] Performing Lab: [facility] [place] [address] [address] [facility]ERN [place] [facility] LIPID PANEL, NON FASTING TRIGLYCERID E [MASS/VOLUM E] IN SERUM OR PLASMA 71 mg/dL 0 - 150 09/06 Specimen Type: SERUM No comment entered. Ordering Provider: BETSY BRADLEY Report Released Date/Time: Sep 01, 2024 12:06 PM Reporting Lab: [facility] [place] [address] [address] Performing Lab: [facility] [place] [address] [address] [facility]ENTERTRN [place] [facility] LIPID PANEL, NON FASTING CHOLESTEROL IN LDL [MASS/VOLUM E] IN SERUM OR PLASMA BY CALCULATION 67 mg/dL 0 - 129 09/06 Specimen Type: SERUM No comment entered. Ordering Provider: BETSY BRADLEY Report Released Date/Time: Sep 01, 2024 12:06 PM Reporting Lab: [facility] [place] [address] [address] Performing Lab: [facility] [place] [facility] [address] [facility] [address] [facility]ENTERUSE [facility] LIPID PANEL, NON FASTING CHOLESTEROL .TOTAL/CHOL ESTEROL IN HDL [MASS RATIO] IN SERUM OR PLASMA 2.1 09/06 Specimen Type: SERUM No comment entered. Ordering Provider: BETSY BRADLEY Report Released Date/Time: Sep 01, 2024 12:06 PM Reporting Lab: [facility] [place] [facility] [address] [facility] [address] Performing Lab: [facility] CENTERUSETS [address] [address] [facility] CENTERTRN [facility]ENTERUSE [facility] LIPID PANEL, NON FASTING CHOLESTEROL IN HDL [MASS/VOLUM E] IN SERUM OR PLASMA 73 mg/dL 40 - 60 09/06 H Specimen Type: SERUM No comment entered. Ordering Provider: BETSY BRADLEY Report Released Date/Time: Sep 01, 2024 12:06 PM Reporting Lab: [facility] [place] [address] [address] Performing Lab: [facility]ENTERUSETS [address] [address] [facility] LIVER FUNCTION PROTEIN [MASS/VOLUM E] IN SERUM OR PLASMA 7.1 g/dL 6.0 - 8.3 09/06 Specimen Type: SERUM No comment entered. Ordering Provider: BETSY BRADLEY Report Released Date/Time: Sep 01, 2024 12:06 PM Reporting Lab: [facility] [place] [address] [address] Performing Lab: [facility]ENTERUSETS [address] [address] [facility] LIVER FUNCTION ALBUMIN [MASS/VOLUM E] IN SERUM OR PLASMA 3.9 g/dL 3.5 - 5.0 09/06 Specimen Type: SERUM No comment entered. Ordering Provider: BETSY BRADLEY Report Released Date/Time: Sep 01, 2024 12:06 PM Reporting Lab: [facility] [place] [facility] [address] [facility] [address] Performing Lab: [facility] [place] [facility] [address] [facility] [address] [facility] [place] [facility] LIVER FUNCTION ALKALINE PHOSPHATASE [ENZYMATIC ACTIVITY/VO LUME] IN SERUM OR PLASMA 116 U/L 40 - 150 09/06 Specimen Type: SERUM No comment entered. Ordering Provider: BETSY BRADLEY Report Released Date/Time: Sep 01, 2024 12:06 PM Reporting Lab: [facility] [place] [facility] [address] [facility] [address] Performing Lab: [facility] [place] [facility] [address] [facility] [address] [facility] [place] [facility] LIVER FUNCTION ASPARTATE AMINOTRANSF ERASE [ENZYMATIC ACTIVITY/VO LUME] IN SERUM OR PLASMA 38 U/L 5 - 34 09/06 H Specimen Type: SERUM No comment entered. Ordering Provider: BETSY BRADLEY Report Released Date/Time: Sep 01, 2024 12:06 PM Reporting Lab: [facility] [address] [facility] [address] Performing Lab: [facility] [address] [facility] [address] [facility] LIVER FUNCTION ALANINE AMINOTRANSF ERASE [ENZYMATIC ACTIVITY/VO LUME] IN SERUM OR PLASMA 29 U/L 09/06 Specimen Type: SERUM No comment entered. Ordering Provider: BETSY BRADLEY Report Released Date/Time: Sep 01, 2024 12:06 PM Reporting Lab: [facility] [address] [facility] [address] Performing Lab: [facility] [address] [facility] [address] [facility] LIVER FUNCTION BILIRUBIN.T OTAL [MASS/VOLUM E] IN SERUM OR PLASMA 1.2 mg/dL 0.2 - 1.2 09/06 Specimen Type: SERUM No comment entered. Ordering Provider: BETSY BRADLEY Report Released Date/Time: Sep 01, 2024 12:06 PM Reporting Lab: [facility] [address] [address] Performing Lab: [address] [address] [facility] LIVER FUNCTION BILIRUBIN.D IRECT [MASS/VOLUM E] IN SERUM OR PLASMA 0.6 mg/dL 0 - 0.5 09/06 H Specimen Type: SERUM No comment entered. Ordering Provider: BETSY BRADLEY Report Released Date/Time: Sep 01, 2024 12:06 PM Reporting Lab: [facility] [address] [address] Performing Lab: [address] [address] [facility] COPEPTIN COPEPTIN 7.3 07/14 Specimen Type: SERUM Comment: REFERENCE RANGE: <= 13.7 pmol/L This test was developed and its analytical performance characteris tics have been determined by [facility] . It has not been cleared or approved by FDA. This assay has been validated pursuant to the CLIA regulations and is used for clinical purposes. Test performed by [facility] [address] [address] Phone: [employer] Racker: Estela Barlow MD,PHD,PATSY Test Reported by [facility], [address] [place] [address] Seamus Joseph M.D., Ph.D., Director of Laboratorie s , CLIA [id number] TEST PERFORMED AT: , Ordering Provider: JOSÉ RILEY Report Released Date/Time: Jul 13, 2024 09:00 AM Reporting Lab: [address] [address] Performing Lab: [facility] [facility] [address] [facility], [address] [place] [address] [facility] OSMOLALIT Y (SERUM) OSMOLALITY OF SERUM OR PLASMA 267 280 - 300 07/14 L Specimen Type: SERUM Comment: Manually entered by: RTO Ordering Provider: JOSÉ RILEY Report Released Date/Time: Jul 13, 2024 09:00 AM Reporting Lab: [facility] [place] [facility] [address] [facility] [address] Performing Lab: [facility] [place] [facility] [address] [facility] [address] [facility] OSMOLALIT Y (URINE) OSMOLALITY OF URINE 354 300 - 1000 07/14 Specimen Type: URINE Comment: Manually entered by: RTO Ordering Provider: JOSÉ RILEY Report Released Date/Time: Jul 13, 2024 09:00 AM Reporting Lab: [facility] [place] [place] [facility] [address] [facility] [address] Performing Lab: [facility] [place] [place] [facility] [address] [facility] [address] [facility] SODIUM RANDOM URINE SODIUM, URINE 53 mmol/L 20 - 400 07/14 Specimen Type: URINE No comment entered. Ordering Provider: JOSÉ RILEY Report Released Date/Time: Jul 13, 2024 09:00 AM Reporting Lab: [facility] [place] [place] [facility] [address] [facility] [address] Performing Lab: [facility] [place] [facility] [address] [facility] [address] [facility] BASIC METABOLIC PANEL (non-fast ing) UREA NITROGEN [MASS/VOLUM E] IN SERUM OR PLASMA 15 mg/dL 7 - 25 07/14 Specimen Type: SERUM No comment entered. Ordering Provider: JOSÉ RILEY Report Released Date/Time: Jul 13, 2024 09:00 AM Reporting Lab: [facility] [place] [facility] [address] [facility] [address] Performing Lab: [facility] [address] [facility] [address] [facility] BASIC METABOLIC PANEL (non-fast ing) GLUCOSE [MASS/VOLUM E] IN SERUM OR PLASMA 95 mg/dL 65 - 100 07/14 Specimen Type: SERUM No comment entered. Ordering Provider: JOSÉ RILEY Report Released Date/Time: Jul 13, 2024 09:00 AM Reporting Lab: [facility] [address] [facility] [address] Performing Lab: [facility] [address] [facility] [address] [facility] BASIC METABOLIC PANEL (non-fast ing) SODIUM [MOLES/VOLU ME] IN SERUM OR PLASMA 128 mmol/L 135 - 145 07/14 L Specimen Type: SERUM No comment entered. Ordering Provider: JOSÉ RILEY Report Released Date/Time: Jul 13, 2024 09:00 AM Reporting Lab: [facility] [address] [facility] [address] Performing Lab: [facility] [address] [facility] [address] [facility] BASIC METABOLIC PANEL (non-fast ing) POTASSIUM [MOLES/VOLU ME] IN SERUM OR PLASMA 4.9 mmol/L 3.5 - 5.0 07/14 Specimen Type: SERUM No comment entered. Ordering Provider: JOSÉ RILEY Report Released Date/Time: Jul 13, 2024 09:00 AM Reporting Lab: [facility] [address] [facility] [address] Performing Lab: [facility] [address] [facility] [address] [facility] BASIC METABOLIC PANEL (non-fast ing) CHLORIDE [MOLES/VOLU ME] IN SERUM OR PLASMA 88 mmol/L 100 - 110 07/14 L Specimen Type: SERUM No comment entered. Ordering Provider: JOSÉ RILEY Report Released Date/Time: Jul 13, 2024 09:00 AM Reporting Lab: [facility] [address] [facility] [address] Performing Lab: [facility] [address] [facility] [address] [facility] BASIC METABOLIC PANEL (non-fast ing) CARBON DIOXIDE, TOTAL [MOLES/VOLU ME] IN SERUM OR PLASMA 24 meq/L 20 - 30 07/14 Specimen Type: SERUM No comment entered. Ordering Provider: JOSÉ RILEY Report Released Date/Time: Jul 13, 2024 09:00 AM Reporting Lab: [facility] [address] [facility] [address] Performing Lab: [facility] [address] [facility] [address] [facility] BASIC METABOLIC PANEL (non-fast ing) CREATININE [MASS/VOLUM E] IN SERUM OR PLASMA 0.91 mg/dL 0.50 - 1.40 07/14 Specimen Type: SERUM No comment entered. Ordering Provider: JOSÉ RILEY Report Released Date/Time: Jul 13, 2024 09:00 AM Reporting Lab: [facility] [address] [facility] [address] Performing Lab: [facility]N [facility] [address] [facility] [address] [facility] BASIC METABOLIC PANEL (non-fast ing) GLOMERULAR FILTRATION RATE/1.73 SQ M.PREDICTED [VOLUME RATE/AREA] IN SERUM, PLASMA OR BLOOD BY CREATININE- BASED FORMULA (CKD-EPI 2020) 90 mL/min 60 07/14 Specimen Type: SERUM No comment entered. Ordering Provider: JOSÉ RILEY Report Released Date/Time: Jul 13, 2024 09:00 AM Reporting Lab: [facility] [address] [facility] [address] Performing Lab: [facility] TRN [address] [address] [facility] THYROID T4 FREE(FT4) (WROX) THYROXINE (T4) FREE [MASS/VOLUM E] IN SERUM OR PLASMA 1.38 ng/dL 0.6 - 1.6 07/12 Specimen Type: SERUM No comment entered. Ordering Provider: JOSÉ RILEY Report Released Date/Time: Jul 09, 2024 10:34 AM Reporting Lab: [facility] [place] [facility] [address] [facility] [address] Performing Lab: [facility] [address] [facility] [address] [facility] Vital Signs Combined list of inpatient [...] 07:53:09 [facility] BMI 31 kg/m2 09/14/2024 07:53:09 [facility] [...] 07:54:08 [facility] BMI 30 kg/m2 07/22/2024 07:54:08 [facility] [...] 07:59:22 [facility] BMI 30 kg/m2 03/12/2024 07:59:22 [facility] [...] 08:27:03 [facility] BMI 30 kg/m2 01/21/2024 08:27:03 [facility] PAIN 0 01/21/2024 08:27:03 [facility] TEMPERATURE 97.5 01/21/2024 08:27:03 [facility] PULSE 102 01/21/2024 08:27:03 [facility] RESPIRATION 20 01/21/2024 08:27:03 [facility] Encounters Combined list of: 1) Encounters from Department of Veterans Affairs facilities going backup to the last 18 months, not all [place] inpatient encounters are included; 2) Encounters from the Department of Defense facilities going backup to 280 months. Location Location Details Encounter Type Encounter Number Reason For Visit Attending Provider ADM Date DC Date Status Disposition Source [facility] En[facility] [id number] 05/19 [facility] DENTAL PANORAMIC IMAGE [id number] Diagnos is: ICD-10- CM K05.323 Chronic periodo ntitis, general ized, severe RISSA ALY AM 05/20 [facility] En[facility] [id number] 06/06 [facility] Encounter [id number] 09/04 [facility] OFFICE O/P EST LOW 20-29 MIN [id number] Diagnos is: ICD-10- CM R91.1 Solitar y pulmona ry nodule Meseret BRADLEY 09/11 [facility] Outpatient Encounter [id number] 10/04 [facility] OFFICE O/P EST HI 40 MIN [id number] Diagnos is: ICD-10- CM 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 RHONDA RILEY 10/23 [facility] Outpatient Encounter [id number] 10/25 [facility] Outpatient Encounter [id number] 11/04 [facility] Outpatient Encounter [id number] Diagnos is: ICD-10- CM 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 SHIKHA SEVILLA 11/04 [facility] Outpatient Encounter [id number] 11/18 [facility] Outpatient Encounter [id number] Diagnos is: ICD-10- CM 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 RHONDA RILEY 11/19 [facility] Encounter [id number] [facility] Outpatient Encounter [id number] 12/28 [facility] Encounter [id number] 12/28 [facility] Out[facility] Encounter [id number] 12/29 [facility] OFFICE O/P EST MOD 30 MIN [id number] Diagnos is: ICD-10- CM 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/o current patholo RHONDA Armenadriz 01/20 [facility] En[facility] [id number] 01/20 [facility] Encounter [id number] 01/24 [facility] Out[facility] Encounter [id number] 03/04 [facility] OFFICE O/P EST LOW 20 MIN [id number] Diagnos is: ICD-10- CM R91.1 Solitar y pulmona ry nodule Meseret BRADLEY 03/12 [facility] En[facility] [id number] 03/24 [facility] Out[facility] Encounter [id number] 04/01 [facility] Out[facility] Encounter [id number] 07/13 [facility] Out[facility] Encounter [id number] Diagnos is: ICD-10- CM 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 RHONDA Lao 07/13 [facility] Outpatient Encounter [id number] 07/16 [facility] OFFICE O/P EST MOD 30 MIN [id number] Diagnos is: ICD-10- CM 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 Diagnos is: ICD-10- CM J44.9 Chronic obstruc tive pulmona ry disease , unspeci fied Meseret BRADLEY 09/14 [facility] Outpatient Encounter [id number] 09/14 [facility] HC PRO PHONE CALL 11-20 MIN [id number] Diagnos is: ICD-10- CM J44.9 Chronic obstruc tive pulmona ry disease , unspeci fied JARMOLOWIC Z,ITA 09/17 [facility] [place] [facility] [place] [facility] Outpatient Encounter [id number] 10/18 [facility] [place] [facility] Social History Combined list of available smoking, tobacco, and other social history from Department of Defense and Veterans Affairs facilities. Social History Type Response Date Comment Sour e Tobacco smoking status NHIS VA-TOBACCO USE EVERY DAY CIGARETTES 09/14/2024 [facility] [place] [facility] History of tobacco use HI-TOBACCO NEVER USED OTHER TYPE 09/14/2024 [facility] [place] [facility] History of tobacco use HI-TOBACCO USER EVERY DAY 09/04/2023 [facility] [place] [facility] History of tobacco use HI-TOBACCO DOESNT USE WI 30 MIN WAKEUP 10/01/2022 [facility] [place] [facility] History of tobacco use VA-TOBACCO USER EVERY DAY 09/07/2021 [facility] [place] [facility] History of tobacco use VA-TOBACCO USER EVERY DAY 06/08/2020 [facility] [place] [facility] History of tobacco use HI-TOBACCO USE THUMB SEWER NO 02/01/2019 [facility] [place] [facility] History of tobacco use CURRENT SMOKER 04/02/2018 [facility] [place] [facility] Plan of Care List of future care activities from Department of Veterans Affairs facilities. Additional future care activities may be listed in the Assessment and Plan section. Date/Time Care Activity Care Activity Detail Facili ty 01/20/2025 AMBULATORY - MEDICINE AMBULATORY - MEDICI NE [facility] [place] [facility]
--- NOTE | 2024-11-19 09:10 | PFT_ITS ---
Indication: COPD Spirometry [FEV1 to FVC 41%; FEV1 1.11 L; FVC 2.71 L. no significant response to bronchodilators noted.] Lung Volumes [Total lung capacity 101% predicted; residual volume 157% predicted] Diffusion Capacity [DLCO 60% predicted] Comparisons [none] Interpretation [This is an obstructive ventilatory defect consistent with severe COPD. No significant response to bronchodilators noted. Significant air trapping due to the COPD. There is also [id number] diffusion impairment secondary to the COPD. Clinical correlation warranted.] MTDD
== END ==
LOC: HO.CARD 08:12
PROVIDERS: Visit Provider Internal Medicine Pulmonary Disease
DX: R06.09 Other forms of dyspnea (principal)
CPT/HCPCS: 93306; Q9957

== ENCOUNTER → 2024-11-19 08:15 | Outpatient (BNV) | payer OTHER, SELFPAY | PROVIDERS: Visit Provider Internal Medicine Cardiovascular Disease | DX: I51.89 Other ill-defined heart diseases (principal); I77.810 Thoracic aortic ectasia | CPT/HCPCS: 93306 ==

== ENCOUNTER → 2024-11-19 09:10 | Outpatient (BNV) | payer OTHER, SELFPAY | PROVIDERS: Visit Provider Hospitalist | DX: J44.9 Chronic obstructive pulmonary disease, unspecified (principal) | CPT/HCPCS: 94060; 94727; 94729 ==

== ENCOUNTER 2024-11-25 12:58 | Outpatient (AMB) | payer OTHER, SELFPAY ==
[2024-11-25 13:02] VITALS: BP 152/77; PULSE 91; O2SAT 93; BMI 31.2
--- NOTE | 2024-11-25 13:02 | A.OFFVIS_ITS ---
Vital Signs 11/25/24 13:02 Height 5 ft 8 in Weight 205 lb BMI 31.2 BP 152/77 H Blood Pressure Location Rt brachial Position Sitting Pulse 91 Pulse Source Doppler Pulse Oximetry (%) 93 Oxygen Delivery Method Room Air Intake Visit Reasons: COPD Allergies hydrochlorothiazide Adverse Reaction (Severe, Verified 10/18/24 09:49) Rash HPI HPI COPD: Details: 69-year-old gentleman, recent 40+ pack-year smoker followed for severe to very severe COPD. Patient has completed his pulmonary function testing, 2D echocardiogram, and lung cancer screening CT chest. His symptoms are poorly controlled on inhaled bronchodilators. He denies acute exacerbations. [facility] Social History (Updated 10/18/24 @ 09:48 by Ammy Barber [facility]) Patient Tobacco Use Status: Current everyday Tobacco user Tobacco use type: Cigarette Years Smoked: started at age 12, 2-3 PPD, quit 10/16/2024 Review of Systems Const Denies daytime sleepiness, Denies excessive sweating, Denies fatigue, Denies fever(s), Denies lethargy, Denies malaise, Denies night sweats, Denies snoring and Denies weight loss Eyes Denies blurry vision and Denies itchy eyes ENT Denies nasal congestion, Denies post nasal drip, Denies sinus pain, Denies sinus pressure and Denies other ( Thrush) Card Denies chest pain, Denies pedal edema, Denies dyspnea, Reports dyspnea on exertion, Denies orthopnea and Denies paroxysmal nocturnal dyspnea Resp Denies cough, Denies hemoptysis, Denies excessive phlegm production, Denies dyspnea, Reports dyspnea on exertion, Denies snoring and Denies wheezing GI Denies abdominal pain and Denies heartburn Musc Denies myalgias, Denies arthralgias and Denies joint swelling Skin/Breast Denies rash Neuro Denies memory loss and Denies seizure-like activity Psych Denies abnormal sleep pattern, Denies anxiety and Denies memory loss Endo Denies excessive sweating, Denies fatigue and Denies heat intolerance Saw/Lymph Denies easy bruising Aller/Immun Denies itchy eyes, Denies seasonal rhinorrhea and Denies wheezing Physical Exam Vital Signs: Last Vital Signs Pulse 91 11/25/24 13:02 BP 152/77 H 11/25/24 13:02 Pulse Ox 93 11/25/24 13:02 Oxygen Delivery Method Room Air 11/25/24 13:02 BMI result Body Mass Index 31.2 Const General: no acute distress and alert Nutritional Appearance: not obese Orientation/consciousness: Other orientation findings ( oriented) HEENT Head: Yes atraumatic Eyes General: appearance normal, both eyes and all related structures Sclerae: sclerae normal EOM: EOMs intact bilaterally Neck Neck: Yes supple Lymphatic: no lymphadenopathy noted Resp Effort & Inspection: normal respiratory effort and no use of accessory muscles Auscultation: clear to auscultation bilaterally Cardio Rate: regular rate Rhythm: regular rhythm Heart sounds: no gallops, no murmurs and no rubs Skin General skin exam: other ( warm) Extrem General: No clubbing, No cyanosis and No edema Assessment & Plan Assessment & Plan (1) COPD (chronic obstructive pulmonary disease): Code(s): J44.9 - Chronic obstructive pulmonary disease, unspecified Category: Medical Plan: Results of pulmonary function testing reviewed, underlying severe to very severe COPD suboptimally controlled on inhaled bronchodilators, likely secondary to poor ability to generate inspiratory flow. Will add long-acting bronchodilator therapy with upelri and Ohtuvayre. Continue baseline regimen of Wixela, Spiriva, and albuterol MDI. (2) Personal history of nicotine dependence: Code(s): Z87.891 - Personal history of nicotine dependence Category: Medical Plan: Results of lung cancer screening CT chest reviewed, no worrisome nodules at this time. Continue with yearly screening, next in October of 2025. (3) Dyspnea on exertion: Code(s): R06.09 - Other forms of dyspnea Category: Medical Plan: Results of 2D echocardiogram reviewed, likely underlying diastolic dysfunction with minimal contribution to current symptomatology. Medications: New ensifentrine (Ohtuvayre) 2.5 mL inhalation BID 150 mL 6RF revefenacin (Yupelri) 175 mcg (3 mL) inhalation DAILY 90 mL 6RF Coding Level of Care Code Est Pt Level 4 (88762) Diagnoses COPD (chronic obstructive pulmonary disease) J44.9 Personal history of nicotine dependence Z87.891 Dyspnea on exertion R06.09
--- OUTSIDE RECORDS SUMMARY | 2024-11-25 13:53 | XMS_ITS | Clinical Summary ---
Author Organization [facility] Facility Address [address] [place] [address] Care Team Providers Care Binder And Box Builder Name Role Phone Unavailable Primary Care Provider [...] patient's age to complete this topic Insurance [facility] 1,2,3 (VACCN) [facility] 1,2,3 (VACCN)
--- OUTSIDE RECORDS SUMMARY | 2024-11-25 13:53 | XMS_ITS | Continuity of Care Document ---
Author Name [facility] Organization [facility] Care Team Providers Care Customer Support Representative Name Role Phone [facility] Unavailable Unavailable Problems Combined list of [...] [facility] Diagnosis or Condition Deferred on [place] I Active Condition [facility] Diplopia Active Condition [facility] Dyspnea (SCT [id number]) Active Condition Jan 02, 2018 Entered By: JOHN APONTE Comment: likely COPD related to chronic smoking >40 yrs. cutting down from 5 cigars to 5 cigarettes [facility] Elevated blood-pressure reading without diagnosis of hypertension Active Condition [facility] HTN - Hypertension (SCT [id number]) Active Condition [facility] Hyperlipidemia (SCT [id number]) Active Condition Nov 06, 2018 Entered By: GIN BRADLEY Comment: address next visitDec 07, 2020 Entered By: GIN BRADLEY Comment: start atorvastatin 20mg qhs [facility] Hyponatremia Active Condition [facility] Hypothyroid Active Condition [facility] Multiple nodules of lung Active Condition [facility] Osteoporosis Active Condition [facility] Polyp Colon (SCT [id number]) Active Condition Jun 04, 2019 Entered By: GIN BRADLEY Comment: c-scope 06/02/19 normal exam, repeat May 2029 [facility] Solitary nodule of lung Active Condition Nov 09, 2024 Entered By: GIN BRADLEY Comment: 7.4mm right upper lobe, repeat due january 2025 [facility] Tobacco user Active Condition [facility] Diagnosis: ICD-10-CM J44.9 Chronic obstructive pulmonary disease, unspecified Active Diagnosis [facility] Diagnosis: ICD-10-CM E03.9 Hypothyroidism, unspecified Active Diagnosis [facility] Diagnosis: ICD-10-CM E87.1 Hypo-osmolality and hyponatremia Active Diagnosis [facility] Diagnosis: ICD-10-CM R91.1 Solitary pulmonary nodule Active Diagnosis [facility] Diagnosis: ICD-10-CM M81.0 Age-related osteoporosis w/o current pathological fracture Active Diagnosis [facility] Diagnosis: ICD-10-CM D35.2 Benign neoplasm of pituitary gland Active Diagnosis [facility] Medications Combined list of [...] G RESPIR ATORY (INHAL ATION) ACTIVE 09/15/2025 [id number] SHERLYN BRADLEY 2024 3 [facility] ALBUTEROL 90MCG/ACTUA T (CFC-F) INHL,ORAL,8 .5GM DOSE COUNTER INHALE 2 PUFFS BY MOUTH EVERY 4 HOURS NEEDED FOR BREATHIN G RESPIR ATORY (INHAL ATION) DISCONT INUED 01/21/2025 [id number] 4 BERNARDINO NIELSEN 2023 3 [facility] ALBUTEROL 90MCG/ACTUA T (CFC-F) INHL,ORAL,8 .5GM DOSE COUNTER INHALE 2 PUFFS BY MOUTH EVERY 4 HOURS NEEDED RESPIR ATORY (INHAL ATION) DISCONT INUED 01/10/2024 [id number] 4 SHERLYN BRADLEY 2022 1 [facility] ALBUTEROL SO4 0.083% INHL,3ML INHALE 1 AMPULE IN NEBULIZE R EVERY 6 HOURS NEEDED FOR BREATHIN G RESPIR ATORY (INHAL ATION) ACTIVE 09/15/2025 [id number] 4 SHERLYN BRADLEY 2023 120 [facility] ATORVASTATI N CA 40MG TAB TAKE ONE-HALF TABLET BY MOUTH ONCE DAILY FOR CHOLESTE ROL ORAL ACTIVE 09/15/2025 [id number] 4 SHERLYN BRADLEY 2023 45 [facility] [place] ATORVASTATI N CA 40MG TAB TAKE ONE-HALF TABLET BY MOUTH ONCE DAILY FOR CHOLESTE ROL ORAL DISCONT INUED 09/11/2024 [id number] 4 SHERLYN BRADLEY 2022 45 [facility] CALCIUM 200MG (CA CITRATE-950 MG) TAB TAKE THREE TABLETS BY MOUTH TWICE DAILY ORAL ACTIVE 12/13/2024 [id number] 4 SHERLYN BRADLEY 2023 540 [facility] CALCIUM 200MG (CA CITRATE-950 MG) TAB TAKE THREE TABLETS BY MOUTH TWICE DAILY ORAL DISCONT INUED 10/07/2024 [id number] CONNOR RILEY ICE 2023 540 [facility] CHOLECALCIF UNA 25MCG (1,000UNIT) TAB TAKE ONE TABLET BY MOUTH ONCE DAILY FOR VITAMIN SUPPLEME NTATION ORAL ACTIVE 12/13/2024 [id number] 4 SHERLYN BRADLEY 2023 90 [facility] CHOLECALCIF UNA 25MCG (1,000UNIT) TAB TAKE ONE TABLET BY MOUTH ONCE DAILY FOR VITAMIN SUPPLEME NTATION ORAL DISCONT INUED 10/07/2024 [id number] 4 RILEY,AL ICE 2023 90 [facility] CHOLECALCIF UNA 25MCG (1,000UNIT) TAB TAKE ONE TABLET BY MOUTH ONCE DAILY FOR VITAMIN SUPPLEME NTATION ORAL 04/26/2024 [id number] 4 RILEY,AL ICE 2022 90 [facility] DEMECLOCYCL INE HCL 150MG TAB TAKE ONE TABLET BY MOUTH TWICE DAILY FOR INFECTIO N ORAL ACTIVE 07/17/2025 [id number] RILEY,HI ICE 2023 180 [facility] FLUTICASONE 250MCG/SALM ETEROL 50MCG INHL,ORAL,D ISKUS,60 INHALE 1 PUFF BY MOUTH TWICE DAILY - RINSE MOUTH AFTER USE REPLAC ES SYMBICOR T (BUDESON NAVID/FORM OTEROL)* * RESPIR ATORY (INHAL ATION) ACTIVE 09/15/2025 [id number] 5 SHERLYN BRADLEY 2023 1 [facility] FLUTICASONE 250MCG/SALM ETEROL 50MCG INHL,ORAL,D ISKUS,60 INHALE 1 PUFF BY MOUTH TWICE DAILY - RINSE MOUTH AFTER USE REPLAC ES SYMBICOR T (BUDESON NAVID/FORM OTEROL)* * RESPIR ATORY (INHAL ATION) DISCONT INUED 12/04/2024 [id number] 4 SHERLYN BRADLEY 2023 1 [facility] FLUTICASONE 250MCG/SALM ETEROL 50MCG INHL,ORAL,D ISKUS,60 INHALE 1 PUFF BY MOUTH TWICE DAILY - RINSE MOUTH AFTER USE REPLAC ES SYMBICOR T (BUDESON NAVID/FORM OTEROL)* * RESPIR ATORY (INHAL ATION) DISCONT INUED 10/02/2023 [id number] 3 BERNARDINO NIELSEN 2021 1 [facility] FUROSEMIDE 40MG TAB TAKE ONE TABLET BY MOUTH ONCE DAILY TO REMOVE FLUID/CO NTROL BLOOD PRESSURE ORAL ACTIVE 10/19/2025 [id number] ASAD GUERRERO BEATRICE 2024 30 [facility] LEVOTHYROXI NE NA 88MCG TAB (SYNTHROID) TAKE ONE TABLET BY MOUTH EVERY MORNING 30 MINUTES BEFORE BREAKFAS T TAKE ON AN EMPTY STOMACH WITH A FULL GLASS OF WATER ORAL ACTIVE 09/15/2025 [id number] 4 SHERLYN BRADLEY 2023 90 [facility] LEVOTHYROXI NE NA 88MCG TAB (SYNTHROID) TAKE ONE TABLET BY MOUTH EVERY MORNING 30 MINUTES BEFORE BREAKFAS T TAKE ON AN EMPTY STOMACH WITH A FULL GLASS OF WATER ORAL DISCONT INUED 12/29/2024 [id number] 4 SHERLYN BRADLEY 2023 90 [facility] LEVOTHYROXI NE NA 88MCG TAB (SYNTHROID) TAKE ONE TABLET BY MOUTH EVERY MORNING 30 MINUTES BEFORE BREAKFAS T TAKE ON AN EMPTY STOMACH WITH A FULL GLASS OF WATER ORAL DISCONT INUED 11/05/2023 [id number] 3 SHERLYN BRADLEY 2022 90 [facility] LISINOPRIL 30MG TAB TAKE ONE TABLET BY MOUTH ONCE DAILY TO CONTROL BLOOD PRESSURE NOTE NEW TABLET STRENGTH ORAL ACTIVE 09/15/2025 [id number] SHERLYN BRADLEY 2023 90 [facility] LISINOPRIL 30MG TAB TAKE ONE TABLET BY MOUTH ONCE DAILY TO CONTROL BLOOD PRESSURE NOTE NEW TABLET STRENGTH ORAL DISCONT INUED 09/11/2024 [id number] 4 SHERLYN BRADLEY 2022 90 [facility] NAPROXEN 500MG TAB TAKE ONE TABLET BY MOUTH EVERY 12 HOURS NEEDED TAKE WITH FOOD; FOR PAIN/INF LAMMATIO N/SWELLI NG ORAL ACTIVE 03/13/2025 [id number] SHERLYN BRADLEY 2023 60 [facility] OXYGEN MISCELLANEO US USE DIRECTED NOT APPLIC ABLE ACTIVE SHERLYN BRADLEY 2024 [facility] PREDNISONE 20MG TAB TAKE ONE TABLET BY MOUTH ONCE DAILY FOR ASTHMA ORAL 10/14/2024 [id number] 4 SHERLYN BRADLEY 2023 7 [facility] TIOTROPIUM 2.5MCG/ACTU AT INHL,ORAL,6 0D,4GM INHALE 2 PUFFS BY MOUTH ONCE DAILY THIS REPLACES TIOTROPI UM HANDIHAL ER CAPSULES RESPIR ATORY (INHAL ATION) ACTIVE 09/15/2025 [id number] 5 SHERLYN BRADLEY 2024 3 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 COVID-19 (MODERNA), MRNA, LNP-S, PF, 50 MCG/0.5 ML (AGES 12+ YEARS) 2023 ZAMOIZPADMINI VIVAS LAURA RIGHT DELTO ID [id number] 312 complet ed [facility] INFLUENZA, HIGH-DOSE, TRIVALENT, PF 2023 VICENTERADHA M LEFT DELTO ID [id number] 135 complet ed [facility] PNEUMOCOCCAL CONJUGATE PCV20, POLYSACCHARID E [id number] CONJUGATE, ADJUVANT, PF 2023 ZAGRACIEPADMINI LAURA RIGHT DELTO ID [id number] 216 complet ed [facility] [place] [facility] COVID-19 (MODERNA), MRNA, LNP-S, PF, 50 MCG/0.5 ML (AGES 12+ YEARS) 2022 ZAGRACIEPADMINI LAURA LEFT DELTO ID [id number] 312 complet ed [facility] INFLUENZA, HIGH-DOSE, QUADRIVALENT 2022 ZANVELUKEPADMINI LAURA RIGHT DELTO ID [id number] 197 complet ed [facility] [place] INFLUENZA VACCINE, QUADRIVALENT, ADJUVANTED 2021 ZANYENY,PADMINI LAURA RIGHT DELTO ID [id number] 205 complet ed [facility] INFLUENZA VACCINE, QUADRIVALENT, ADJUVANTED 2020 205 complet ed [facility] [place] [facility] COVID-19 (MODERNA), MRNA, LNP-S, PF, 100 MCG OR 50 MCG DOSE 3 2020 207 complet ed [facility] [place] COVID-19 (PFIZER), MRNA, LNP-S, PF, 30 MCG/0.3 ML DOSE 2 2020 208 complet ed PFR; [id number]; 1 [facility] COVID-19 (PFIZER), MRNA, LNP-S, PF, 30 MCG/0.3 ML DOSE 1 2020 208 complet ed PFR; [id number]; 1 [facility] [...] Jul 16, 2024 02:39 PM Reporting Lab: [facility] [facility] [address] [address] Performing Lab: [facility] [address] [address] [facility] BASIC METABOLIC PANEL (non-fast ing) GLUCOSE [MASS/VOLUM E] IN SERUM OR PLASMA 87 mg/dL 65 - 100 09/06 Specimen Type: SERUM No comment entered. Ordering Provider: JOSÉ RILEY Report Released Date/Time: Jul 16, 2024 02:39 PM Reporting Lab: [facility] [address] [address] Performing Lab: [facility] [address] [address] [facility] BASIC METABOLIC PANEL (non-fast ing) SODIUM [MOLES/VOLU ME] IN SERUM OR PLASMA 137 mmol/L 135 - 145 09/06 Specimen Type: SERUM No comment entered. Ordering Provider: JOSÉ RILEY Report Released Date/Time: Jul 16, 2024 02:39 PM Reporting Lab: [address] [address] Performing Lab: [address] [address] [facility] BASIC METABOLIC PANEL (non-fast ing) POTASSIUM [MOLES/VOLU ME] IN SERUM OR PLASMA 4.6 mmol/L 3.5 - 5.0 09/06 Specimen Type: SERUM No comment entered. Ordering Provider: JOSÉ RILEY Report Released Date/Time: Jul 16, 2024 02:39 PM Reporting Lab: [address] [address] Performing Lab: [facility] [address] [address] [facility] BASIC METABOLIC PANEL (non-fast ing) CHLORIDE [MOLES/VOLU ME] IN SERUM OR PLASMA 97 mmol/L 100 - 110 09/06 L Specimen Type: SERUM No comment entered. Ordering Provider: JOSÉ RILEY Report Released Date/Time: Jul 16, 2024 02:39 PM Reporting Lab: [address] [address] Performing Lab: [address] [address] [facility] BASIC METABOLIC PANEL (non-fast ing) CARBON DIOXIDE, TOTAL [MOLES/VOLU ME] IN SERUM OR PLASMA 27 meq/L 20 - 30 09/06 Specimen Type: SERUM No comment entered. Ordering Provider: JOSÉ RILEY Report Released Date/Time: Jul 16, 2024 02:39 PM Reporting Lab: [address] [address] Performing Lab: [address] [address] [facility] BASIC METABOLIC PANEL (non-fast ing) CREATININE [MASS/VOLUM E] IN SERUM OR PLASMA 0.89 mg/dL 0.50 - 1.40 09/06 Specimen Type: SERUM No comment entered. Ordering Provider: JOSÉ RILEY Report Released Date/Time: Jul 16, 2024 02:39 PM Reporting Lab: [address] [address] Performing Lab: [address] [address] [facility] BASIC METABOLIC PANEL (non-fast ing) GLOMERULAR FILTRATION RATE/1.73 SQ M.PREDICTED [VOLUME RATE/AREA] IN SERUM, PLASMA OR BLOOD BY CREATININE- BASED FORMULA (CKD-EPI 2020) >90mL/ min 60 09/06 Specimen Type: SERUM No comment entered. Ordering Provider: JOSÉ RILEY Report Released Date/Time: Jul 16, 2024 02:39 PM Reporting Lab: [address] [address] Performing Lab: [address] [address] [facility] CBC LEUKOCYTES [#/VOLUME] IN BLOOD BY AUTOMATED COUNT 7.38 10*3/u L 4.50 - 11.00 09/06 Specimen Type: BLOOD No comment entered. Ordering Provider: BETSY BRADLEY Report Released Date/Time: Sep 01, 2024 12:06 PM Reporting Lab: [facility] [address] [address] Performing Lab: [facility] [address] [address] [facility] CBC ERYTHROCYTE S [#/VOLUME] IN BLOOD BY AUTOMATED COUNT 5.30 10*6/u L 4.23 - 5.66 09/06 Specimen Type: BLOOD No comment entered. Ordering Provider: BETSY BRADLEY Report Released Date/Time: Sep 01, 2024 12:06 PM Reporting Lab: [facility] [address] [facility] [address] Performing Lab: [facility] [address] [address] [facility] CBC HEMOGLOBIN [MASS/VOLUM E] IN BLOOD 17.9 g/dL 12.8 - 17 09/06 H Specimen Type: BLOOD No comment entered. Ordering Provider: BETSY BRADLEY Report Released Date/Time: Sep 01, 2024 12:06 PM Reporting Lab: [facility] [address] [address] Performing Lab: [facility] [place] [facility] [address] [address] [facility] CBC HEMATOCRIT [VOLUME FRACTION] OF BLOOD BY AUTOMATED COUNT 49.7 39.2 - 50.4 09/06 Specimen Type: BLOOD No comment entered. Ordering Provider: BETSY BRADLEY Report Released Date/Time: Sep 01, 2024 12:06 PM Reporting Lab: [facility] [address] [facility] [address] Performing Lab: [facility] [address] [address] [facility] CBC MCV [ENTITIC VOLUME] BY AUTOMATED COUNT 93.8 fL 82 - 99 09/06 Specimen Type: BLOOD No comment entered. Ordering Provider: BETSY BRADLEY Report Released Date/Time: Sep 01, 2024 12:06 PM Reporting Lab: [facility] [place] [facility] [address] [address] Performing Lab: [facility] [place] [facility] [address] [address] [facility] CBC MCHC [MASS/VOLUM E] BY AUTOMATED COUNT 36.0 g/dL 30.8 - 35.1 09/06 H Specimen Type: BLOOD No comment entered. Ordering Provider: BETSY BRADLEY Report Released Date/Time: Sep 01, 2024 12:06 PM Reporting Lab: [facility] [place] [address] [address] Performing Lab: [facility] [place] [address] [address] [facility] CBC PLATELETS [#/VOLUME] IN BLOOD BY AUTOMATED COUNT 150 10*3/u L 140 - 360 09/06 Specimen Type: BLOOD No comment entered. Ordering Provider: BETSY BRADLEY Report Released Date/Time: Sep 01, 2024 12:06 PM Reporting Lab: [facility] [place] [address] [address] Performing Lab: [facility] [place] [address] [address] [facility] CBC ERYTHROCYTE DISTRIBUTIO N WIDTH [RATIO] BY AUTOMATED COUNT 12.8 12.0 - 16.0 09/06 Specimen Type: BLOOD No comment entered. Ordering Provider: BETSY BRADLEY Report Released Date/Time: Sep 01, 2024 12:06 PM Reporting Lab: [facility] [place] [facility] [address] [address] Performing Lab: [facility] [place] [address] [address] [facility] CBC MCH [ENTITIC MASS] BY AUTOMATED COUNT 33.8 pg 26.2 - 32.6 09/06 H Specimen Type: BLOOD No comment entered. Ordering Provider: BETSY BRADLEY Report Released Date/Time: Sep 01, 2024 12:06 PM Reporting Lab[facility] [address] [address] Performing Lab: [facility] [address] [address] [facility] LIPID PANEL, NON FASTING CHOLESTEROL [MASS/VOLUM E] IN SERUM OR PLASMA 154 mg/dL 09/06 Specimen Type: SERUM No comment entered. Ordering Provider: BETSY BRADLEY Report Released Date/Time: Sep 01, 2024 12:06 PM Reporting Lab: [facility] [address] Performing Lab: [facility] [address] [facility] LIPID PANEL, NON FASTING TRIGLYCERID E [MASS/VOLUM E] IN SERUM OR PLASMA 71 mg/dL 0 - 150 09/06 Specimen Type: SERUM No comment entered. Ordering Provider: BETSY BRADLEY Report Released Date/Time: Sep 01, 2024 12:06 PM Reporting Lab: [facility] [address] Performing Lab: [facility] [address] [facility] LIPID PANEL, NON FASTING CHOLESTEROL IN LDL [MASS/VOLUM E] IN SERUM OR PLASMA BY CALCULATION 67 mg/dL 0 - 129 09/06 Specimen Type: SERUM No comment entered. Ordering Provider: BETSY BRADLEY Report Released Date/Time: Sep 01, 2024 12:06 PM Reporting Lab: [facility] [address] Performing Lab: [facility] [address] [facility] LIPID PANEL, NON FASTING CHOLESTEROL .TOTAL/CHOL ESTEROL IN HDL [MASS RATIO] IN SERUM OR PLASMA 2.1 09/06 Specimen Type: SERUM No comment entered. Ordering Provider: BETSY BRADLEY Report Released Date/Time: Sep 01, 2024 12:06 PM Reporting Lab: [facility] [place] [facility] [address] [facility] [address] Performing Lab: [facility] [place] [facility] [address] [facility] [address] [facility] LIPID PANEL, NON FASTING CHOLESTEROL IN HDL [MASS/VOLUM E] IN SERUM OR PLASMA 73 mg/dL 40 - 60 09/06 H Specimen Type: SERUM No comment entered. Ordering Provider: BETSY BRADLEY Report Released Date/Time: Sep 01, 2024 12:06 PM Reporting Lab: [facility] [place] [address] [address] Performing Lab: [facility] [place] [facility] [address] [facility] [address] [facility] LIVER FUNCTION PROTEIN [MASS/VOLUM E] IN SERUM OR PLASMA 7.1 g/dL 6.0 - 8.3 09/06 Specimen Type: SERUM No comment entered. Ordering Provider: BETSY BRADLEY Report Released Date/Time: Sep 01, 2024 12:06 PM Reporting Lab: [facility] [place] [facility] [address] [facility] [address] Performing Lab: [facility] [place] [facility] [address] [facility] [address] [facility] LIVER FUNCTION ALBUMIN [MASS/VOLUM E] IN SERUM OR PLASMA 3.9 g/dL 3.5 - 5.0 09/06 Specimen Type: SERUM No comment entered. Ordering Provider: BETSY BRADLEY Report Released Date/Time: Sep 01, 2024 12:06 PM Reporting Lab: [facility] [place] [address] [address] Performing Lab: [facility] [place] [facility] [address] [facility] [address] [facility] LIVER FUNCTION ALKALINE PHOSPHATASE [ENZYMATIC ACTIVITY/VO LUME] IN SERUM OR PLASMA 116 U/L 40 - 150 09/06 Specimen Type: SERUM No comment entered. Ordering Provider: BETSY BRADLEY Report Released Date/Time: Sep 01, 2024 12:06 PM Reporting Lab: [facility] [address] [facility] [address] Performing Lab: [facility] [place] [facility] [address] [facility] [address] [facility] LIVER FUNCTION ASPARTATE AMINOTRANSF ERASE [ENZYMATIC ACTIVITY/VO LUME] IN SERUM OR PLASMA 38 U/L 5 - 34 09/06 H Specimen Type: SERUM No comment entered. Ordering Provider: BETSY BRADLEY Report Released Date/Time: Sep 01, 2024 12:06 PM Reporting Lab: [facility] [place] [facility] [address] [facility] [address] Performing Lab: [facility] [place] [facility] [address] [address] [facility] LIVER FUNCTION ALANINE AMINOTRANSF ERASE [ENZYMATIC ACTIVITY/VO LUME] IN SERUM OR PLASMA 29 U/L 09/06 Specimen Type: SERUM No comment entered. Ordering Provider: BETSY BRADLEY Report Released Date/Time: Sep 01, 2024 12:06 PM Reporting Lab: [facility] [place] [facility] [address] [facility] [address] Performing Lab: [facility] [place] [facility] [address] [facility] [address] [facility] [place] [facility] LIVER FUNCTION BILIRUBIN.T OTAL [MASS/VOLUM E] IN SERUM OR PLASMA 1.2 mg/dL 0.2 - 1.2 09/06 Specimen Type: SERUM No comment entered. Ordering Provider: BETSY BRADLEY Report Released Date/Time: Sep 01, 2024 12:06 PM Reporting Lab: [facility] [place] [facility] [address] [facility] [address] Performing Lab: [facility] [place] [address] [address] [facility] LIVER FUNCTION BILIRUBIN.D IRECT [MASS/VOLUM E] IN SERUM OR PLASMA 0.6 mg/dL 0 - 0.5 09/06 H Specimen Type: SERUM No comment entered. Ordering Provider: BETSY BRADLEY Report Released Date/Time: Sep 01, 2024 12:06 PM Reporting Lab: [facility] [place] [facility] [address] [facility] [address] Performing Lab: [facility] [address] [facility] COPEPTIN COPEPTIN 7.3 07/14 Specimen Type: SERUM Comment: REFERENCE RANGE: <= 13.7 pmol/L This test was developed and its analytical performance characteris tics have been determined by [employer] . It has not been cleared or approved by FDA. This assay has been validated pursuant to the CLIA regulations and is used for clinical purposes. Test performed by [employer] [place] [phone] Phone: [employer] Coater: Estela Barlow MD,PHD,PATSY Test Reported by [facility], [facility] [facility], [address] [place] [address] Seamus Joseph M.D., Ph.D., Director of Laboratorie s , CLIA [id number] TEST PERFORMED AT: , Ordering Provider: JOSÉ RILEY Report Released Date/Time: Jul 13, 2024 09:00 AM Reporting Lab: [facility] [address] Performing Lab: [facility] [address] [address] [facility] OSMOLALIT Y (SERUM) OSMOLALITY OF SERUM OR PLASMA 267 280 - 300 07/14 L Specimen Type: SERUM Comment: Manually entered by: RTO Ordering Provider: JOSÉ RILEY Report Released Date/Time: Jul 13, 2024 09:00 AM Reporting Lab: [facility] [place] [facility] [address] [facility] [address] Performing Lab: [facility] [place] [facility] [address] [facility] [address] [facility] OSMOLALIT Y (URINE) OSMOLALITY OF URINE 354 300 - 1000 07/14 Specimen Type: URINE Comment: Manually entered by: RTO Ordering Provider: JOSÉ RILEY Report Released Date/Time: Jul 13, 2024 09:00 AM Reporting Lab: [facility] [address] [facility] [address] Performing Lab: [facility] [place] [facility] [address] [facility] [address] [facility] SODIUM RANDOM URINE SODIUM, URINE 53 mmol/L 20 - 400 07/14 Specimen Type: URINE No comment entered. Ordering Provider: JOSÉ RILEY Report Released Date/Time: Jul 13, 2024 09:00 AM Reporting Lab: [facility] [place] [facility] [address] [facility] [address] Performing Lab: [facility] [place] [facility] [address] [facility] [address] [facility] BASIC METABOLIC PANEL (non-fast ing) UREA NITROGEN [MASS/VOLUM E] IN SERUM OR PLASMA 15 mg/dL 7 - 25 07/14 Specimen Type: SERUM No comment entered. Ordering Provider: JOSÉ RILEY Report Released Date/Time: Jul 13, 2024 09:00 AM Reporting Lab: [facility] [place] [facility] [address] [facility] [address] Performing Lab: [facility] [place] [facility] [address] [facility] [address] [facility] BASIC METABOLIC PANEL (non-fast ing) GLUCOSE [MASS/VOLUM E] IN SERUM OR PLASMA 95 mg/dL 65 - 100 07/14 Specimen Type: SERUM No comment entered. Ordering Provider: JOSÉ RILEY Report Released Date/Time: Jul 13, 2024 09:00 AM Reporting Lab: [address] [address] Performing Lab: [facility] [address] [facility] [address] [facility] BASIC METABOLIC PANEL (non-fast ing) SODIUM [MOLES/VOLU ME] IN SERUM OR PLASMA 128 mmol/L 135 - 145 07/14 L Specimen Type: SERUM No comment entered. Ordering Provider: JOSÉ RILEY Report Released Date/Time: Jul 13, 2024 09:00 AM Reporting Lab: [address] [address] Performing Lab: [facility] [address] [facility] [address] [facility] BASIC METABOLIC PANEL (non-fast ing) POTASSIUM [MOLES/VOLU ME] IN SERUM OR PLASMA 4.9 mmol/L 3.5 - 5.0 07/14 Specimen Type: SERUM No comment entered. Ordering Provider: JOSÉ RILEY Report Released Date/Time: Jul 13, 2024 09:00 AM Reporting Lab: [facility] [address] [facility] [address] Performing Lab: [facility] [address] [facility] [address] [facility] BASIC METABOLIC PANEL (non-fast ing) CHLORIDE [MOLES/VOLU ME] IN SERUM OR PLASMA 88 mmol/L 100 - 110 07/14 L Specimen Type: SERUM No comment entered. Ordering Provider: JOSÉ RILEY Report Released Date/Time: Jul 13, 2024 09:00 AM Reporting Lab: [address] [address] Performing Lab: [facility] [address] [facility] [address] [facility] BASIC METABOLIC PANEL (non-fast ing) CARBON DIOXIDE, TOTAL [MOLES/VOLU ME] IN SERUM OR PLASMA 24 meq/L 20 - 30 07/14 Specimen Type: SERUM No comment entered. Ordering Provider: JOSÉ RILEY Report Released Date/Time: Jul 13, 2024 09:00 AM Reporting Lab: [facility] [address] [facility] [address] Performing Lab: [facility] [address] [facility] [address] [facility] BASIC METABOLIC PANEL (non-fast ing) CREATININE [MASS/VOLUM E] IN SERUM OR PLASMA 0.91 mg/dL 0.50 - 1.40 07/14 Specimen Type: SERUM No comment entered. Ordering Provider: JOSÉ RILEY Report Released Date/Time: Jul 13, 2024 09:00 AM Reporting Lab: [facility] [address] [facility] [address] Performing Lab: [facility] [address] [facility] [address] [facility] BASIC METABOLIC PANEL (non-fast ing) GLOMERULAR FILTRATION RATE/1.73 SQ M.PREDICTED [VOLUME RATE/AREA] IN SERUM, PLASMA OR BLOOD BY CREATININE- BASED FORMULA (CKD-EPI 2020) 90 mL/min 60 07/14 Specimen Type: SERUM No comment entered. Ordering Provider: JOSÉ RILEY Report Released Date/Time: Jul 13, 2024 09:00 AM Reporting Lab: [facility] [address] [facility] [address] Performing Lab: [address] [address] [facility] THYROID T4 FREE(FT4) (WROX) THYROXINE (T4) FREE [MASS/VOLUM E] IN SERUM OR PLASMA 1.38 ng/dL 0.6 - 1.6 07/12 Specimen Type: SERUM No comment entered. Ordering Provider: JOSÉ RILEY Report Released Date/Time: Jul 09, 2024 10:34 AM Reporting Lab: [facility] [place] [facility] [address] [facility] [address] Performing Lab: [facility] [place] [facility] [address] [facility] [address] [facility] Vital Signs Combined list of inpatient and [...] to the last 18 months, not all VA inpatient encounters are included; 2) Encounters from the Department of [facility] facilities going backup to 280 months. Location Location Details Encounter Type Encounter Number Reason For Visit Attending Provider ADM Date DC Date Status Disposition Source [facility] Encounter [id number] 06/06 [facility] Encounter [id number] 09/04 [facility] OFFICE O/P EST LOW 20-29 MIN [id number] Diagnos is: ICD-10- CM R91.1 Solitar y pulmona ry Meseret Iyer 09/11 [facility] Encounter [id number] 10/04 [facility] OFFICE O/P EST HI 40 MIN [id number] Diagnos is: ICD-10- CM 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 RHONDA RILEY 10/23 [facility] En[facility] [id number] 10/25 [facility] Encounter [id number] 11/04 [facility] [id number] Diagnos is: ICD-10- CM 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 SHIKHA SEVILLA 11/04 [facility] Out[facility] Encounter [id number] 11/18 [facility] Encounter [id number] Diagnos is: ICD-10- CM 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 RHONDA RILEY 11/19 [facility] Encounter [id number] [facility] Encounter [id number] 12/28 [facility] Encounter [id number] 12/28 [facility] Encounter [id number] 12/29 [facility] OFFICE O/P EST MOD 30 MIN [id number] Diagnos is: ICD-10- CM 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 RHONDA RILEY 01/20 [facility] En[facility] [id number] 01/20 [facility] Encounter [id number] 01/24 [facility] Encounter [id number] 03/04 [facility] OFFICE O/P EST LOW 20 MIN [id number] Diagnos is: ICD-10- CM R91.1 Solitar y pulmona ry nodule Meseret BRADLEY 03/12 [facility] Encounter [id number] 03/24 [facility] Out[facility] Encounter [id number] 04/01 [facility] Out[facility] Encounter [id number] 07/13 [facility] Out[facility] Encounter [id number] Diagnos is: ICD-10- CM 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 RHONDA RILEY 07/13 [facility] Encounter [id number] 07/16 [facility] OFFICE O/P EST MOD 30 MIN [id number] Diagnos is: ICD-10- CM 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 Diagnos is: ICD-10- CM J44.9 Chronic obstruc tive pulmona ry disease , unspeci fied KIRKW WILFRED J 09/14 [facility] Outpatient Encounter [id number] 09/14 [facility] [place] [place] PRO PHONE CALL 11-20 MIN [id number] Diagnos is: ICD-10- CM J44.9 Chronic obstruc tive pulmona ry disease , unspeci fied JARMOLOWIC Z,ITA 09/17 [facility] [place] [place] Outpatient Encounter [id number] 10/18 [facility] [place] [place] Social History Combined list of available smoking, tobacco, and other social history from Department of Defense and Veterans Affairs facilities. Social History Type Response Date Comment [facility] e Tobacco smoking status [facility] VA-TOBACCO USE EVERY DAY CIGARETTES 09/14/2024 [facility] [place] [facility] History of tobacco use HI-TOBACCO NEVER USED OTHER TYPE 09/14/2024 [facility] [place] [facility] History of tobacco use VA-TOBACCO USER EVERY DAY 09/04/2023 [facility] [place] [facility] History of tobacco use VA-TOBACCO USER EVERY DAY 10/01/2022 [facility] [place] [facility] History of tobacco use VA-TOBACCO USER EVERY DAY 09/07/2021 [facility] [place] [facility] History of tobacco use VA-TOBACCO USER EVERY DAY 06/08/2020 [facility] [place] [facility] History of tobacco use VA-TOBACCO USE 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 Additional future care activities may be listed in the Assessment and Plan section. Date/Time Care Activity Care Activity Detail Facili ty 01/20/2025 AMBULATORY - MEDICINE AMBULATORY - MEDICI [facility] [place] [facility] 01/20/2025 AMBULATORY - NONE AMBULATORY - NONE [facility] [place] [facility]
== END 2024-11-25 13:19 | disposition home or self-care (01) ==
PROVIDERS: PCP Nurse Practitioner Family; Visit Provider Internal Medicine Pulmonary Disease
DX: J44.9 Chronic obstructive pulmonary disease, unspecified (principal); Z87.891 Personal history of nicotine dependence; R06.09 Other forms of dyspnea
CPT/HCPCS: 99214

== ENCOUNTER → 2024-11-25 12:58 | Outpatient (BNVA) | payer OTHER, SELFPAY | PROVIDERS: PCP Nurse Practitioner Family; Visit Provider Internal Medicine Pulmonary Disease | DX: J44.9 Chronic obstructive pulmonary disease, unspecified (principal); R06.09 Other forms of dyspnea; Z87.891 Personal history of nicotine dependence | CPT/HCPCS: 99212 ==

== ENCOUNTER 2024-12-13 11:23 | Outpatient (AMB) | payer OTHER, SELFPAY ==
[2024-12-13 11:27] VITALS: BP 142/74; PULSE 103; O2SAT 94; BMI 33.0
--- NOTE | 2024-12-13 11:27 | MHC.OFFVIS ---
Vital Signs 12/13/24 11:27 Height 5 ft 8 in Weight 217 lb 2.485 oz BMI 33.0 BP 142/74 H Blood Pressure Location Rt brachial Position Sitting Pulse 103 H Pulse Source Doppler Pulse Oximetry (%) 94 Oxygen Delivery Method Room Air Intake Visit Reasons: COPD Allergies hydrochlorothiazide Adverse Reaction (Severe, Verified 12/13/24 11:34) Rash HPI HPI COPD: Details: 69-year-old gentleman, recent 40+ pack-year smoker followed for severe to very severe COPD. Patient has completed his pulmonary function testing, 2D echocardiogram, and lung cancer screening CT chest. His symptoms are poorly controlled on inhaled bronchodilators. Over the last week he has ran out of his diuretic and has experienced worsening dyspnea on exertion and lower extremity edema. He has not received his nebulized bronchodilators either. COUNTS INCLUDE 234 BEDS AT THE [facility] Social History (Updated 10/18/24 @ 09:48 by Ammy Barber Tito) Patient Tobacco Use Status: Current everyday Tobacco user Tobacco use type: Cigarette Years Smoked: started at age 12, 2-3 PPD, quit 10/16/2024 Review of Systems Const Denies daytime sleepiness, Denies excessive sweating, Denies fatigue, Denies fever(s), Denies lethargy, Denies malaise, Denies night sweats, Denies snoring and Denies weight loss Eyes Denies blurry vision and Denies itchy eyes ENT Denies nasal congestion, Denies post nasal drip, Denies sinus pain, Denies sinus pressure and Denies other ( Thrush) Card Denies chest pain, Reports pedal edema, Reports dyspnea, Reports dyspnea on exertion, Denies orthopnea and Denies paroxysmal nocturnal dyspnea Resp Denies cough, Denies hemoptysis, Denies excessive phlegm production, Reports dyspnea, Reports dyspnea on exertion, Denies snoring and Denies wheezing GI Denies abdominal pain and Denies heartburn Musc Denies myalgias, Denies arthralgias and Denies joint swelling Skin/Breast Denies rash Neuro Denies memory loss and Denies seizure-like activity Psych Denies abnormal sleep pattern, Denies anxiety and Denies memory loss Endo Denies excessive sweating, Denies fatigue and Denies heat intolerance Saw/Lymph Denies easy bruising Aller/Immun Denies itchy eyes, Denies seasonal rhinorrhea and Denies wheezing Physical Exam Vital Signs: Last Vital Signs Pulse 103 H 12/13/24 11:27 BP 142/74 H 12/13/24 11:27 Pulse Ox 94 12/13/24 11:27 Oxygen Delivery Method Room Air 12/13/24 11:27 BMI result Body Mass Index 33.0 Const General: no acute distress and alert Nutritional Appearance: not obese Orientation/consciousness: Other orientation findings ( oriented) HEENT Head: Yes atraumatic Eyes General: appearance normal, both eyes and all related structures Sclerae: sclerae normal EOM: EOMs intact bilaterally Neck Neck: Yes supple Lymphatic: no lymphadenopathy noted Resp Effort & Inspection: normal respiratory effort and no use of accessory muscles Auscultation: crackles (Bilateral) Cardio Rate: regular rate Rhythm: regular rhythm Heart sounds: no gallops, no murmurs and no rubs Skin General skin exam: other ( warm) Extrem General: No clubbing, No cyanosis and Yes edema (2+ bilateral) Assessment & Plan Assessment & Plan (1) COPD (chronic obstructive pulmonary disease): Code(s): J44.9 - Chronic obstructive pulmonary disease, unspecified Category: Medical Plan: Suboptimal control as patient has not received his nebulized bronchodilators. Continue Spiriva, Wixela, and albuterol MDI. Pending receipt of Yupelri and Ohtuvayre. (2) Supplemental oxygen dependent: Code(s): Z99.81 - Dependence on supplemental oxygen Category: Medical Plan: Continue supplemental oxygen to maintain saturation of 88-93%. (3) Personal history of nicotine dependence: Code(s): Z87.891 - Personal history of nicotine dependence Category: Medical Plan: Continue with yearly screening, next in October of 2025. (4) Dyspnea on exertion: Code(s): R06.09 - Other forms of dyspnea Category: Medical Plan: Now with a worsening orthopnea and lower extremity edema as patient has ran out of his diuretic. Restart diuretic regimen at 40 mg of furosemide daily. Medications: Refilled furosemide 40 mg PO DAILY 30 tabs 6RF Coding Level of Care Code Est Pt Level 4 (35529) Complex EM visit Add On G2211 Diagnoses COPD (chronic obstructive pulmonary disease) J44.9 Supplemental oxygen dependent Z99.81 Personal history of nicotine dependence Z87.891 Dyspnea on exertion R06.09
--- OUTSIDE RECORDS SUMMARY | 2024-12-13 13:00 | XMS_ITS | Clinical Summary ---
Author Organization [facility] Facility Address [address] [place] [address] Care Team Providers Care Clinical Professor Name Role Phone Unavailable Primary Care Provider [...] patient's age to complete this topic Insurance [facility] 1,2,3 (VACCN) [facility] 1,2,3 (VACCN)
--- OUTSIDE RECORDS SUMMARY | 2024-12-13 13:00 | XMS_ITS | Encounter Summary ---
Author Name [facility] Organization [facility] Address [address] [place] [address] Care Team Providers Care Car Sweeper Name Role Phone SHERLYN BRADLEY Primary Care [...] PART B Apr 05, 2020 PART B [id number] [facility] PATIENT MEDICARE (WNR) MEDICARE (M) PART A Mar 06, 2019 PART A [id number] [facility] PATIENT Selected Encounter This section includes the information on record at [place] for the Encounter. Date/Time Encounter Type Encounter Description Reason Pro vider Source Nov 25, 2024 12:00 AM Outpatient Encounter COMMUNITY CARE CONSULT IHE Encounter [...] 20 appointments. The data comes from all [place] treatment facilities. Appointment Date/Time Appointment Type Appointme nt Facility Name Jan 20, 2025 08:00 AM AMBULATORY - MEDICINE [facility] [place] [facility] Jan 20, 2025 08:45 AM AMBULATORY - NONE [facility] [place] [facility] Social History: Smoking Status (Most current) and Tobacco Use (All prior to encounter date) This section includes the most current, and the historical, smoking and tobacco- related health factors from the [place] facility where the Encounter took place. Current Smoking Status This section includes the most current smoking, or tobacco-related health factor, from the [place] facility where the Encounter took place. Date/Time Current Smoking Status Comment Facil ity Sep 14, 2024 08:00 AM VA-TOBACCO USE ОЛЕГ RY DAY CIGARETTES [facility] [place] [facility] Tobacco Use History This section includes a history of the smoking, or tobacco-related health factors, that were collected on or before the date of the Encounter. The data comes from the [place] facility where the Encounter took place. Date/Time Smoking Status/Tobacco Use Comment F acility Sep 14, 2024 08:00 AM VA-TOBACCO SCREEN FOLLOW-UP [facility] [place] [facility] Sep 14, 2024 08:00 AM VA-TOBACCO USE ADVICE [facility] [place] [facility] Sep 14, 2024 08:00 AM VA-TOBACCO USE HEALTH AND SAFETY ADVISOR NO [facility] [place] [facility] Sep 14, 2024 08:00 AM VA-TOBACCO USE ОЛЕГ RY DAY CIGARETTES [facility] [place] [facility] Sep 14, 2024 08:00 AM VA-TOBACCO USE MED NO [facility] [place] [facility] Sep 04, 2023 01:14 PM VA-TOBACCO USE 30 YEARS OR MORE [facility] [place] [facility] Sep 04, 2023 01:14 PM VA-TOBACCO USE ADVICE [facility] [place] [facility] Sep 04, 2023 01:14 PM VA-TOBACCO USE HEALTH AND SAFETY ADVISOR NO [facility] [place] [facility] Sep 04, 2023 01:14 PM VA-TOBACCO USE MED NO [facility] [place] [facility] Sep 04, 2023 01:14 PM VA-TOBACCO USE WI 30 MIN OF WAKEUP [facility] [place] [facility] Sep 04, 2023 01:14 PM VA-TOBACCO USER EVERY DAY [facility] [place] [facility] Oct 01, 2022 09:45 AM VA-TOBACCO DOESNT USE WI 30 MIN WAKEUP [facility] [place] [facility] Oct 01, 2022 09:45 AM VA-TOBACCO USE 30 YEARS OR MORE [facility] [place] [facility] Oct 01, 2022 09:45 AM VA-TOBACCO USE ADVICE [facility] [place] [facility] Oct 01, 2022 09:45 AM VA-TOBACCO USE HEALTH AND SAFETY ADVISOR NO [facility] [place] [facility] Oct 01, 2022 09:45 AM VA-TOBACCO USE MED NO [facility] [place] [facility] Oct 01, 2022 09:45 AM VA-TOBACCO USER EVERY DAY [facility] [place] [facility] Sep 07, 2021 10:30 AM VA-TOBACCO USE 30 YEARS OR MORE [facility] [place] [facility] Sep 07, 2021 10:30 AM VA-TOBACCO USE ADVICE [facility] [place] [facility] Sep 07, 2021 10:30 AM VA-TOBACCO USE HEALTH AND SAFETY ADVISOR NO [facility] [place] [facility] Sep 07, 2021 10:30 AM VA-TOBACCO USE MED NO [facility] [place] [facility] Sep 07, 2021 10:30 AM VA-TOBACCO USE WI 30 MIN OF WAKEUP [facility] [place] [facility] Sep 07, 2021 10:30 AM VA-TOBACCO USER EVERY DAY [facility] [place] [facility] Jun 08, 2020 09:00 AM VA-TOBACCO USE 30 YEARS OR MORE [facility] [place] [facility] Jun 08, 2020 09:00 AM VA-TOBACCO USE ADVICE [facility] [place] [facility] Jun 08, 2020 09:00 AM VA-TOBACCO USE HEALTH AND SAFETY ADVISOR NO [facility] [place] [facility] Jun 08, 2020 09:00 AM VA-TOBACCO USE MED NO [facility] [place] [facility] Jun 08, 2020 09:00 AM VA-TOBACCO USE WI 30 MIN OF WAKEUP [facility] [place] [facility] Jun 08, 2020 09:00 AM VA-TOBACCO USER EVERY DAY [facility] [place] [facility] Feb 01, 2019 02:27 PM VA-TOBACCO USE 30 YEARS OR MORE [facility] [place] Feb 01, 2019 02:27 PM VA-TOBACCO USE ADVICE [facility] [place] [facility] Feb 01, 2019 02:27 PM VA-TOBACCO USE HEALTH AND SAFETY ADVISOR NO [facility] [place] [facility] Feb 01, 2019 02:27 PM VA-TOBACCO USE MED NO [facility] [place] Feb 01, 2019 02:27 PM VA-TOBACCO USE WI 30 MIN OF WAKEUP [facility] [place] [facility] Feb 01, 2019 02:27 PM VA-TOBACCO USER EVERY DAY [facility] [place] [facility] Apr 02, 2018 02:47 PM CURRENT SMOKER [facility] [place] [facility] Apr 02, 2018 02:47 PM V1-PT DECLINES REF TO TOBACCO CESS PRGM [facility] [place] [facility] Apr 02, 2018 02:47 PM V1-PT DECLINES TOB ACCO CESSATION MEDS [facility] [place] [facility] Apr 02, 2018 02:47 PM V1-PT THINKING ABO UT QUIT TOBACCO USE [facility] Encounter Notes: All associated encounter notes This section contains the clinical notes associated to the Encounter. Date/Time Encounter Note(s) Provider Source Nov 25, 2024 12:00 AM NONVA CONSULT: LOCAL TITLE: COMMUNITY CARE-CONSULT RESULT NOTE STANDARD TITLE: NONVA CONSULT DATE OF NOTE: NOV 25, 2024 ENTRY DATE: DEC 02, 2024@13:20:03 AUTHOR: LAURI MÉNDEZ EXP COSIGNER: URGENCY: STATUS: COMPLETED VistA Imaging - Scanned Document SCANNED DOCUMENT SIGNATURE NOT REQUIRED Electronically Filed: 12/02/2024 by: LAURI PALMA [facility]
--- OUTSIDE RECORDS SUMMARY | 2024-12-13 13:01 | XMS_ITS ---
Author Name [facility] [place] [facility] [place] [facility] [facility] [place] Address [address] [place] [id number] Care Team Providers Care Child And Youth Program Assistant Name Role Phone SHERLYN BRADLEY Primary Care Provider [facility] Insurance Providers: All historical and current [...] PART B Apr 05, 2020 PART B [id number] NIKOLEDEEJAYMary JoCOCO PATIENT MEDICARE (WNR) MEDICARE (M) PART A Mar 06, 2019 PART A [id number] NIKOLEDEEJAYMary JoCOCO PATIENT Selected Encounter This section includes the information on record at [place] for the Encounter. Date/Time Encounter Type Encounter Description Reason Provider Source Nov 26, 2024 11:28 AM [facility] OL DIG ASSMT&MGMT 11-20 CLINICAL PHARMACY ICD-10-CM J44.9 Chronic obstructive pulmonary disease, unspecified SOVEROW,BHUPENDRA Y A IHE Encounter Template Text not used by [place] Assessments - Encounter Diagnoses This section includes the primary and secondary diagnoses documented for the Encounter. Date/Time Primary/Secondary Diagnosis Diagnosis Name Provider Source Nov 26, 2024 11:41 AM PRIMARY Chronic obstructive pulmonary disease, unspecified BHUPENDRA [facility]ACHER [place] [facility] Plan of Treatment: Future Appointments (+ 6 months) and Future Tests (+/- 45 days) The Plan of Treatment section includes future care activities for the [facility] [place] [facility] This section includes future appointments and future orders which are active, pending or scheduled. Future Appointments This section includes appointments that were scheduled to occur 6 months from the date of the Encounter, up to a maximum of 20 appointments. The data comes from all [place] treatment facilities. Appointment Date/Time Appointment Type Appointme nt Facility Name Jan 20, 2025 08:00 AM [facility]UL[facility] [place] [facility] [place] [facility] Jan 20, 2025 08:45 AM [facility] Social History: Smoking Status (Most current) and Tobacco Use (All prior to encounter date) This section includes the most current, and the historical, smoking and tobacco- related health factors from the [place] facility where the Encounter took place. Current Smoking Status This section includes the most current smoking, or tobacco-related health factor, from the [place] facility where the Encounter took place. Date/Time Current Smoking Status Comment Facil ity Sep 14, 2024 08:00 AM VA-TOBACCO USE ОЛЕГ RY DAY CIGARETTES [facility] Tobacco Use History This section includes a history of the smoking, or tobacco-related health factors, that were collected on or before the date of the Encounter. The data comes from the [place] facility where the Encounter took place. Date/Time Smoking Status/Tobacco Use Comment F acility Sep 14, 2024 08:00 AM VA-TOBACCO SCREEN FOLLOW-UP [place] [facility] [place] [facility] Sep 14, 2024 08:00 AM VA-[place]AC[place] USE ADVICE [place] [facility] Sep 14, 2024 08:00 AM VA-TOBACCO USE OIM CONSULTANT NO [place] [facility] [place] [facility] Sep 14, 2024 08:00 AM VA-TOBACCO USE ОЛЕГ RY DAY CIGARETTES [facility] Sep 14, 2024 08:00 AM [facility]CO [facility] MED NO [facility] [place] [facility] Sep 04, 2023 01:14 PM VA-TOBACCO USE 30 YEARS OR MORE [facility] [place] [facility] Sep 04, 2023 01:14 PM VA-TOBACCO USE ADVICE [facility] [place] [facility] Sep 04, 2023 01:14 PM VA-TOBACCO USE OIM CONSULTANT NO [facility] [place] [facility] Sep 04, 2023 01:14 PM VA-TOBACCO USE MED NO [facility] [place] [facility] Sep 04, 2023 01:14 PM VA-TOBACCO USE WI 30 MIN OF WAKEUP [facility] [place] [facility] Sep 04, 2023 01:14 PM VA-TOBACCO USER EVERY DAY [facility] [place] [facility] Oct 01, 2022 09:45 AM VA-TOBACCO DOESNT USE WI 30 MIN WAKEUP [facility] [place] [facility] Oct 01, 2022 09:45 AM VA-TOBACCO USE 30 YEARS OR MORE [facility] [place] [facility] Oct 01, 2022 09:45 AM VA-TOBACCO USE ADVICE [facility] [place] [facility] Oct 01, 2022 09:45 AM VA-TOBACCO USE OIM CONSULTANT NO [facility] [place] [facility] Oct 01, 2022 09:45 AM VA-TOBACCO USE MED NO [facility] [place] [facility] Oct 01, 2022 09:45 AM VA-TOBACCO USER EVERY DAY [facility] [place] [facility] Sep 07, 2021 10:30 AM VA-TOBACCO USE 30 YEARS OR MORE [facility] [place] [facility] Sep 07, 2021 10:30 AM VA-TOBACCO USE ADVICE [facility] [place] [facility] Sep 07, 2021 10:30 AM VA-TOBACCO USE OIM CONSULTANT NO [facility] [place] [facility] Sep 07, 2021 10:30 AM VA-TOBACCO USE MED NO [facility] [place] [facility] Sep 07, 2021 10:30 AM VA-TOBACCO USE [place] 30 MIN OF WAKEUP [facility] [place] [facility] Sep 07, 2021 10:30 AM VA-TOBACCO USER EVERY DAY [facility] [place] [facility] Jun 08, 2020 09:00 AM VA-TOBACCO USE 30 YEARS OR MORE [facility] [place] [facility] Jun 08, 2020 09:00 AM VA-TOBACCO USE ADVICE [facility] [place] [facility] Jun 08, 2020 09:00 AM VA-TOBACCO USE OIM CONSULTANT NO [facility] [place] [facility] Jun 08, 2020 09:00 AM VA-TOBACCO USE MED NO [facility] [place] [facility] Jun 08, 2020 09:00 AM VA-TOBACCO USE [place] 30 MIN OF WAKEUP [facility] [place] [facility] Jun 08, 2020 09:00 AM VA-TOBACCO USER EVERY DAY [facility] [place] [facility] Feb 01, 2019 02:27 PM VA-TOBACCO USE 30 YEARS OR MORE [facility] [place] [facility] Feb 01, 2019 02:27 PM VA-TOBACCO USE ADVICE [facility] [place] [facility] Feb 01, 2019 02:27 PM VA-TOBACCO USE OIM CONSULTANT NO [facility] [place] [facility] Feb 01, 2019 02:27 PM VA-TOBACCO USE MED NO [facility] [place] [facility] Feb 01, 2019 02:27 PM VA-TOBACCO USE [place] 30 MIN OF WAKEUP [facility] [place] [facility] Feb 01, 2019 02:27 PM VA-TOBACCO USER EVERY DAY [place] [facility] [place] [facility] Apr 02, 2018 02:47 PM CURRENT SMOKER [place] [facility] [place] [facility] Apr 02, 2018 02:47 PM V1-PT DECLINES REF TO TOBACCO CESS PRGM [facility] [place] [facility] Apr 02, 2018 02:47 PM V1-PT DECLINES TOB ACCO CESSATION MEDS [facility] [place] [facility] Apr 02, 2018 02:47 PM V1-PT THINKING ABO UT QUIT TOBACCO USE [facility] [place] [facility] Encounter Notes: All associated encounter notes This section contains the clinical notes associated to the Encounter. Date/Time Encounter Note(s) Provider Source Nov 26, 2024 11:41 AM MEDICATION MGT CONSULT: LOCAL TITLE: CONSULT REPORT/NON FORMULARY PADR STANDARD TITLE: MEDICATION MGT CONSULT DATE OF NOTE: NOV 26, 2024@11:41 ENTRY DATE: NOV 26, 2024@11:41:24 AUTHOR: RORO SCHUMACHERIGNER: URGENCY: STATUS: COMPLETED The medical record has been reviewed with regard to this restricted drug request. This prior authorization drug request originated with a [facility] provider. Medication requested: REVEFENACIN 175MCG/3ML INHL SOLN 3ML Medication indication: Severe COPD Medical history relevant to this request: 69 y/o male followed by pulmonology. Recent 40+ pack-year smoker with severe COPD poorly controlled on inhaled bronchodilators. recently denied acute exacerbations. Pulmonology believes sub optimally controlled on inhaled therapies due to poor ability to generate inspiratory flow. FEV1: 41% Inhaler technique not verified by pulmonology office. Plan from office was to continue inhaled therapy and initiate nebulized therapy? (This would be duplicate) as patient is already using a long acting anticholinergic (Spiriva) The request does not meet criteria - Compelling evidence for the requested indication is lacking Time Spent: 5 minutes /lolly/ RORO SCHUMACHER PHARMD. [facility] Clinical Pharmacist Signed: 11/26/2024 11:47 Receipt Acknowledged By: 11/26/2024 12:23 /lolly/ SHERLYN FLEMING Neurology Stroke Physician RORO SCHUMACHER [place] [facility] [place] [facility] Nov 26, 2024 11:28 AM MEDICATION MGT CONSULT: LOCAL TITLE: CONSULT REPORT/NON FORMULARY PADR STANDARD TITLE: MEDICATION MGT CONSULT DATE OF NOTE: NOV 26, 2024@11:28 ENTRY DATE: NOV 26, 2024@11:28:58 AUTHOR: RORO SCHUMACHERIGNER: URGENCY: STATUS: COMPLETED The medical record has been reviewed with regard to this restricted drug request. This prior authorization drug request originated with a [facility] provider. Medication requested: ENSIFENTRINE 3MG/2.5ML INHL SUSP AMP Medication indication: severe COPD Medical history relevant to this request: 69 y/o male followed by pulmonology. Recent 40+ pack-year smoker with severe COPD poorly controlled on inhaled bronchodilators. [place] recently denied acute exacerbations. Pulmonology believes sub optimally controlled on inhaled therapies due to poor ability to generate inspiratory flow. CFU as follows (filled out by office and verified with notes from office): Exclusion Criteria If the answer to ANY item below is met, then the patient should NOT receive ensifentrine. [ ]Diagnosis of asthma [ ]Treatment of acute bronchospasm or an acute exacerbation of chronic obstructive pulmonary disease (COPD) [ ]History of depression (e.g., major depressive disorder [MDD]), suicidal thoughts or behaviors, unless determined, in consultation with a mental health specialist or primary care provider, that ensifentrine can be used Inclusion Criteria All of the following criteria must be met. [X]Provider is a [place] or [facility] school photograph editor or designated expert. [X]Moderate to severe COPD (e.g., post-bronchodilator FEV1 30-70% predicted and FEV1/FVC <0.7, confirmed by pulmonary function testing). FEV: Forced expiratory volume; FVC: Forced vital capacity *41 % per notes [X]Receiving maintenance bronchodilator therapy with a long-acting beta-agonist (LABA) AND a long-acting anticholinergic (LAMA) AND an inhaled corticosteroid (unless inhaled corticosteroid is contraindicated) for at least 3 months. *Currently on Advair, Spiriva, Albuterol (neb and MDI) [?]Had at least 2 moderate COPD exacerbations (requiring systemic steroids and/or antibiotics) or at least 1 severe COPD exacerbation (requiring hospitalization) in the previous 12 months. *Office checked off but provided no evidence [X]Inadequate symptom control (e.g., dyspnea score of at least 2 on [employer] dyspnea scale, etc.) [?]Patient is unable to tolerate or had an inadequate response to roflumilast and/or azithromycin after therapeutic trial (e.g., continued exacerbations after at least 6 months) or is clinically not appropriate for either agent (e.g., risks outweigh benefits). ^3-5 *Not checked off by office and no history of trials of either medication [X]Adherent to COPD medications as evidenced by a review of prescription refill history. *[facility]--adherent [ ]Patient has demonstrated correct inhaler technique (documented in medical record) *Not checked off by office and no evidence within office note [ ]Potential for psychiatric events with ensifentrine such as mood changes, depression, anxiety and suicidal thoughts and/or behaviors have been discussed with the patient and documented in medical record. *Not checked off by office and no evidence within office note must meet all inclusion criteria in order to receive ensifentrine. No history of trialing Daliresp or azithromycin (for at least 6 months) Inhaler technique not observed No evidence of COPD exacerbations The request does not meet criteria - Compelling evidence for the requested indication is lacking Time spent: 15 minutes /lolly/ RORO SCHUMACHER PHARMD. [facility] Clinical Pharmacist Signed: 11/26/2024 11:41 Receipt Acknowledged By: 11/26/2024 12:18 /lolly/ SHERLYN RASMUSSEN Neurology Stroke Physician RORO SCHUMACHER [place] [facility] [facility]
--- OUTSIDE RECORDS SUMMARY | 2024-12-13 13:01 | XMS_ITS | Continuity of Care Document ---
Author Name [facility] Organization [facility] Care Team Providers Care Fitness Technician Name Role Phone [facility] Unavailable Unavailable Problems Combined list of problems [...] [place] [facility] Diagnosis or Condition Deferred on [place] I Active Condition [facility] [place] Diplopia Active Condition [facility] Dyspnea (SCT [id number]) Active Condition Jan 02, 2018 Entered By: JOHN APONTE Comment: likely COPD related to chronic smoking >40 yrs. cutting down from 5 cigars to 5 cigarettes [facility] [place] Elevated blood-pressure reading without diagnosis of hypertension Active Condition [facility] HTN - Hypertension (SCT [id number]) Active Condition [facility] Hyperlipidemia (SCT [id number]) Active Condition Nov 06, 2018 Entered By: [...] [facility] [place] [facility] Polyp Colon (SCT [id number]) Active Condition Jun 04, 2019 Entered By: [...] FOR BREATHIN G RESPIR ATORY (INHAL ATION) SUSPEND ED 09/15/2025 [id number] 5 SHERLYN BRADLEY 2024 3 [facility] [place] ALBUTEROL 90MCG/ACTUA T (CFC-F) INHL,ORAL,8 .5GM DOSE COUNTER INHALE 2 PUFFS BY MOUTH EVERY 4 HOURS NEEDED FOR BREATHIN G RESPIR ATORY (INHAL ATION) DISCONT INUED 01/21/2025 [id number] 4 BERNARDINO NIELSEN 2023 3 [facility] [place] ALBUTEROL 90MCG/ACTUA T (CFC-F) INHL,ORAL,8 .5GM DOSE COUNTER INHALE 2 PUFFS BY MOUTH EVERY 4 HOURS NEEDED RESPIR ATORY (INHAL ATION) DISCONT INUED 01/10/2024 [id number] 4 SHERLYN BRADLEY 2022 1 [facility] [place] [facility] ALBUTEROL SO4 0.083% INHL,3ML INHALE 1 AMPULE IN NEBULIZE R EVERY 6 HOURS NEEDED FOR BREATHIN G RESPIR ATORY (INHAL ATION) ACTIVE 09/15/2025 [id number] SHERLYN BRADLEY 2023 120 [facility] [place] ATORVASTATI N CA 40MG TAB TAKE ONE-HALF TABLET BY MOUTH ONCE DAILY FOR CHOLESTE ROL ORAL ACTIVE 09/15/2025 [id number] 4 SHERLYN BRADLEY 2023 45 [facility] [place] ATORVASTATI N CA 40MG TAB TAKE ONE-HALF TABLET BY MOUTH ONCE DAILY FOR CHOLESTE ROL ORAL DISCONT INUED 09/11/2024 [id number] 4 SHERLYN BRADLEY 2022 45 [facility] [place] CALCIUM 200MG (CA CITRATE-950 MG) TAB TAKE THREE TABLETS BY MOUTH TWICE DAILY ORAL ACTIVE 12/13/2024 [id number] 4 SHERLYN BRADLEY 2023 540 [facility] [place] CALCIUM 200MG (CA CITRATE-950 MG) TAB TAKE THREE TABLETS BY MOUTH TWICE DAILY ORAL DISCONT INUED 10/07/2024 [id number] RILEY,AL ICE 2023 540 [facility] [place] CHOLECALCIF UNA 25MCG (1,000UNIT) TAB TAKE ONE TABLET BY MOUTH ONCE DAILY FOR VITAMIN SUPPLEME NTATION ORAL ACTIVE 12/13/2024 [id number] 4 SHERLYN BRADLEY 2023 90 [facility] [place] CHOLECALCIF UNA 25MCG (1,000UNIT) TAB TAKE ONE TABLET BY MOUTH ONCE DAILY FOR VITAMIN SUPPLEME NTATION ORAL DISCONT INUED 10/07/2024 [id number] RILEY,AL ICE 2023 90 [facility] [place] [facility] CHOLECALCIF UNA 25MCG (1,000UNIT) TAB TAKE ONE TABLET BY MOUTH ONCE DAILY FOR VITAMIN SUPPLEME NTATION ORAL 04/26/2024 [id number] 4 RILEY,AL ICE 2022 90 [facility] [place] DEMECLOCYCL INE HCL 150MG TAB TAKE ONE TABLET BY MOUTH TWICE DAILY FOR INFECTIO N ORAL ACTIVE 07/17/2025 [id number] 4 RILEY,AL ICE 2023 180 [facility] FLUTICASONE 250MCG/SALM ETEROL 50MCG INHL,ORAL,D ISKUS,60 INHALE 1 PUFF BY MOUTH TWICE DAILY - RINSE MOUTH AFTER USE REPLAC ES SYMBICOR T (BUDESON NAVID/FORM OTEROL)* * RESPIR ATORY (INHAL ATION) ACTIVE 09/15/2025 [id number] 5 SHERLYN BRADLEY 2023 1 [facility] FLUTICASONE 250MCG/SALM ETEROL 50MCG INHL,ORAL,D ISKUS,60 INHALE 1 PUFF BY MOUTH TWICE DAILY - RINSE MOUTH AFTER USE REPLAC ES SYMBICOR T (BUDESON NAVID/FORM OTEROL)* * RESPIR ATORY (INHAL ATION) DISCONT INUED 12/04/2024 [id number] 4 SHERLYN BRADLEY 2023 1 [facility] FLUTICASONE 250MCG/SALM ETEROL 50MCG INHL,ORAL,D ISKUS,60 INHALE 1 PUFF BY MOUTH TWICE DAILY - RINSE MOUTH AFTER USE REPLAC ES SYMBICOR T (BUDESON NAVID/FORM OTEROL)* * RESPIR ATORY (INHAL ATION) DISCONT INUED 10/02/2023 [id number] 3 BERNARDINO NIELSEN 2021 1 [facility] FUROSEMIDE 40MG TAB TAKE ONE TABLET BY MOUTH ONCE DAILY TO REMOVE FLUID/CO NTROL BLOOD PRESSURE ORAL ACTIVE 12/14/2025 [id number] ASAD GUERRERO BEATRICE 2024 30 [facility] FUROSEMIDE 40MG TAB TAKE ONE TABLET BY MOUTH ONCE DAILY TO REMOVE FLUID/CO NTROL BLOOD PRESSURE ORAL DISCONT INUED 10/19/2025 [id number] ASAD GUERRERO BEATRICE 2024 30 [facility] LEVOTHYROXI NE NA 88MCG TAB (SYNTHROID) TAKE ONE TABLET BY MOUTH EVERY MORNING 30 MINUTES BEFORE BREAKFAS T TAKE ON AN EMPTY STOMACH WITH A FULL GLASS OF WATER ORAL ACTIVE 09/15/2025 [id number] 4 SHERLYN BRADLEY 2023 90 [facility] [place] LEVOTHYROXI NE NA 88MCG TAB (SYNTHROID) TAKE ONE TABLET BY MOUTH EVERY MORNING 30 MINUTES BEFORE BREAKFAS T TAKE ON AN EMPTY STOMACH WITH A FULL GLASS OF WATER ORAL DISCONT INUED 12/29/2024 [id number] 4 SHERLYN BRADLEY 2023 90 [facility] LEVOTHYROXI NE NA 88MCG TAB (SYNTHROID) TAKE ONE TABLET BY MOUTH EVERY MORNING 30 MINUTES BEFORE BREAKFAS T TAKE ON AN EMPTY STOMACH WITH A FULL GLASS OF WATER ORAL DISCONT INUED 11/05/2023 [id number] 3 SHERLYN BRADLEY 2022 90 [facility] LISINOPRIL 30MG TAB TAKE ONE TABLET BY MOUTH ONCE DAILY TO CONTROL BLOOD PRESSURE NOTE NEW TABLET STRENGTH ORAL ACTIVE 09/15/2025 [id number] 4 SHERLYN BRADLEY 2023 90 [facility] LISINOPRIL 30MG TAB TAKE ONE TABLET BY MOUTH ONCE DAILY TO CONTROL BLOOD PRESSURE NOTE NEW TABLET STRENGTH ORAL DISCONT INUED 09/11/2024 [id number] 4 SHERLYN BRADLEY 2022 90 [facility] NAPROXEN 500MG TAB TAKE ONE TABLET BY MOUTH EVERY 12 HOURS NEEDED TAKE WITH FOOD; FOR PAIN/INF LAMMATIO N/SWELLI NG ORAL ACTIVE 03/13/2025 [id number] SHERLYN BRADLEY 2023 60 [facility] OXYGEN MISCELLANEO US USE DIRECTED NOT APPLIC ABLE ACTIVE SHERLYN BRADLEY 2024 [facility] PREDNISONE 20MG TAB TAKE ONE TABLET BY MOUTH ONCE DAILY FOR ASTHMA ORAL 10/14/2024 [id number] SHERLYN BRADLEY 2023 7 [facility] TIOTROPIUM 2.5MCG/ACTU AT INHL,ORAL,6 0D,4GM INHALE 2 PUFFS BY MOUTH ONCE DAILY THIS REPLACES TIOTROPI UM HANDIHAL ER CAPSULES RESPIR ATORY (INHAL ATION) ACTIVE 09/15/2025 [id number] 5 SHERLYN BRADLEY 2024 3 [facility] TIOTROPIUM 2.5MCG/ACTU AT INHL,ORAL,6 0D,4GM INHALE 2 PUFFS BY MOUTH ONCE DAILY THIS REPLACES TIOTROPI UM HANDIHAL ER CAPSULES RESPIR ATORY (INHAL ATION) DISCONT INUED 09/11/2024 [id number] 4 SHERLYN BRADLEY 2022 3 [facility] [place] [facility] Allergies, Adverse Reactions, Alerts Combined list of allergies from Department of Defense and Veterans Affairs facilities. It does not include entries that were removed or entered in error. Substance Category Reaction Severity Reaction type Status Date Reported Comments Source HCTZ HYDROCHLOROTH IAZIDE Propensity to adverse reactions to drug (finding) active 8 [facility] [place] [facility] Immunizations Combined list of available immunizations from the Department of Defense and Veterans Affairs facilities. Immunization Series Date Given Administered By Site Reaction Lot Number CVX Code Drug Payment Manager Status Comments Source COVID-19 (MODERNA), MRNA, LNP-S, PF, 50 MCG/0.5 ML (AGES 12+ YEARS) 2023 ZANVELKUE,PADMINI LAURA RIGHT DELTO ID [id number] 312 complet ed [facility] [place] [facility] INFLUENZA, HIGH-DOSE, TRIVALENT, PF 2023 RADHA ZHANG LEFT DELTO ID [id number] 135 complet ed [facility] [place] [facility] PNEUMOCOCCAL CONJUGATE PCV20, POLYSACCHARID E [id number] CONJUGATE, ADJUVANT, PF 2023 ZANVELUKE,PADMINI LAURA RIGHT DELTO ID [id number] 216 complet ed [facility] [place] [facility] COVID-19 (MODERNA), MRNA, LNP-S, PF, 50 MCG/0.5 ML (AGES 12+ YEARS) 2022 BARBARAVELUKE,PADMINI LAURA LEFT DELTO ID [id number] 312 complet ed [facility] [place] [facility] INFLUENZA, HIGH-DOSE, QUADRIVALENT 2022 ZANVETTOR,PADMINI LAURA RIGHT DELTO ID [id number] 197 complet ed [facility] [place] [facility] INFLUENZA VACCINE, QUADRIVALENT, ADJUVANTED 2021 ZANVETTOR,PADMINI LAURA RIGHT DELTO ID [id number] 205 complet ed [facility] [place] [facility] INFLUENZA VACCINE, QUADRIVALENT, ADJUVANTED 2020 205 complet ed [facility] [place] [facility] COVID-19 (MODERNA), MRNA, LNP-S, PF, 100 MCG OR 50 MCG DOSE 3 2020 207 complet ed [facility] COVID-19 (PFIZER), MRNA, LNP-S, PF, 30 MCG/0.3 ML DOSE 2 2020 208 complet ed PFR; [id number]; 1 [facility] COVID-19 (PFIZER), MRNA, LNP-S, PF, 30 MCG/0.3 ML DOSE 1 2020 208 complet ed PFR; [id number]; 1 [facility] [...] Jul 16, 2024 02:39 PM Reporting Lab: [facility] [address] [facility] [address] Performing Lab: [facility] [address] [facility] [address] [facility] BASIC METABOLIC PANEL (non-fast ing) GLUCOSE [MASS/VOLUM E] IN SERUM OR PLASMA 87 mg/dL 65 - 100 09/06 Specimen Type: SERUM No comment entered. Ordering Provider: JOSÉ RILEY Report Released Date/Time: Jul 16, 2024 02:39 PM Reporting Lab: [facility] [address] [facility] [address] Performing Lab: [facility] [address] [facility] [address] [facility] BASIC METABOLIC PANEL (non-fast ing) SODIUM [MOLES/VOLU ME] IN SERUM OR PLASMA 137 mmol/L 135 - 145 09/06 Specimen Type: SERUM No comment entered. Ordering Provider: JOSÉ RILEY Report Released Date/Time: Jul 16, 2024 02:39 PM Reporting Lab: [facility] [address] [facility] [address] Performing Lab: [facility] [address] [facility] [address] [facility] BASIC METABOLIC PANEL (non-fast ing) POTASSIUM [MOLES/VOLU ME] IN SERUM OR PLASMA 4.6 mmol/L 3.5 - 5.0 09/06 Specimen Type: SERUM No comment entered. Ordering Provider: JOSÉ RILEY Report Released Date/Time: Jul 16, 2024 02:39 PM Reporting Lab: [facility]SN [facility] [address] [facility] [address] Performing Lab: [facility] [address] [facility] [address] [facility] BASIC METABOLIC PANEL (non-fast ing) CHLORIDE [MOLES/VOLU ME] IN SERUM OR PLASMA 97 mmol/L 100 - 110 09/06 L Specimen Type: SERUM No comment entered. Ordering Provider: JOSÉ RILEY Report Released Date/Time: Jul 16, 2024 02:39 PM Reporting Lab: [facility] [place] [facility] [address] [facility] [address] Performing Lab: [facility] [address] [facility] [address] [facility] BASIC METABOLIC PANEL (non-fast ing) CARBON DIOXIDE, TOTAL [MOLES/VOLU ME] IN SERUM OR PLASMA 27 meq/L 20 - 30 09/06 Specimen Type: SERUM No comment entered. Ordering Provider: JOSÉ RILEY Report Released Date/Time: Jul 16, 2024 02:39 PM Reporting Lab: [facility] [address] [facility] [address] Performing Lab: [facility] [address] [facility] BASIC METABOLIC PANEL (non-fast ing) CREATININE [MASS/VOLUM E] IN SERUM OR PLASMA 0.89 mg/dL 0.50 - 1.40 09/06 Specimen Type: SERUM No comment entered. Ordering Provider: JOSÉ RILEY Report Released Date/Time: Jul 16, 2024 02:39 PM Reporting Lab: [facility] [place] [facility] [address] [facility] [address] Performing Lab: [facility] [address] [facility]ITAL[facility] BASIC METABOLIC PANEL (non-fast ing) GLOMERULAR FILTRATION RATE/1.73 SQ M.PREDICTED [VOLUME RATE/AREA] IN SERUM, PLASMA OR BLOOD BY CREATININE- BASED FORMULA (CKD-EPI 2020) >90mL/ min 60 09/06 Specimen Type: SERUM No comment entered. Ordering Provider: JOSÉ RILEY Report Released Date/Time: Jul 16, 2024 02:39 PM Reporting Lab: [facility] [address] Performing Lab: [facility] [address] [facility]RN [place] [facility] LIPID PANEL, NON FASTING CHOLESTEROL [MASS/VOLUM E] IN SERUM OR PLASMA 154 mg/dL 09/06 Specimen Type: SERUM No comment entered. Ordering Provider: BETSY BRADLEY Report Released Date/Time: Sep 01, 2024 12:06 PM Reporting Lab: [facility] [address] Performing Lab: [facility]PRISETRN [facility]ITALUSETS [address] [address] [facility]ITAL[facility] LIPID PANEL, NON FASTING TRIGLYCERID E [MASS/VOLUM E] IN SERUM OR PLASMA 71 mg/dL 0 - 150 09/06 Specimen Type: SERUM No comment entered. Ordering Provider: BETSY BRADLEY Report Released Date/Time: Sep 01, 2024 12:06 PM Reporting Lab: [facility] [address] Performing Lab: [facility] HIGHLANDSN [facility]ITALUSETS [address] [address] [facility]ITALUSE [facility] LIPID PANEL, NON FASTING CHOLESTEROL IN LDL [MASS/VOLUM E] IN SERUM OR PLASMA BY CALCULATION 67 mg/dL 0 - 129 09/06 Specimen Type: SERUM No comment entered. Ordering Provider: BETSY BRADLEY Report Released Date/Time: Sep 01, 2024 12:06 PM Reporting Lab: [facility] HIGHLANDSN [facility]ITALUSETS [address] [address] Performing Lab: [facility] ENTERPRISETRN [facility]ITALUSETS [address] [address] [facility]ITALUSE [facility] LIPID PANEL, NON FASTING CHOLESTEROL .TOTAL/CHOL ESTEROL IN HDL [MASS RATIO] IN SERUM OR PLASMA 2.1 09/06 Specimen Type: SERUM No comment entered. Ordering Provider: BETSY BRADLEY Report Released Date/Time: Sep 01, 2024 12:06 PM Reporting Lab: [facility] HIGHLANDSN [facility]ITAL[facility] [address] Performing Lab: [facility] [place] [facility] [address] [facility] [address] [facility] [place] [facility] LIPID PANEL, NON FASTING CHOLESTEROL IN HDL [MASS/VOLUM E] IN SERUM OR PLASMA 73 mg/dL 40 - 60 09/06 H Specimen Type: SERUM No comment entered. Ordering Provider: BETSY BRADLEY Report Released Date/Time: Sep 01, 2024 12:06 PM Reporting Lab: [facility] [place] [facility] [address] [facility] [address] Performing Lab: [facility] [place] [facility] [address] [facility] [address] [facility] [place] [facility] CBC LEUKOCYTES [#/VOLUME] IN BLOOD BY AUTOMATED COUNT 7.38 10*3/u L 4.50 - 11.00 09/06 Specimen Type: BLOOD No comment entered. Ordering Provider: BETSY BRADLEY Report Released Date/Time: Sep 01, 2024 12:06 PM Reporting Lab: [facility] [place] [facility] [address] [facility] [address] Performing Lab: [facility] [place] [facility] [address] [facility] [address] [facility] [place] [facility] CBC ERYTHROCYTE S [#/VOLUME] IN BLOOD BY AUTOMATED COUNT 5.30 10*6/u L 4.23 - 5.66 09/06 Specimen Type: BLOOD No comment entered. Ordering Provider: BETSY BRADLEY Report Released Date/Time: Sep 01, 2024 12:06 PM Reporting Lab: [facility] [place] [facility] [address] [facility] [address] Performing Lab: [facility] [place] [facility] [address] [facility] [address] [facility] [place] [facility] CBC HEMOGLOBIN [MASS/VOLUM E] IN BLOOD 17.9 g/dL 12.8 - 17 09/06 H Specimen Type: BLOOD No comment entered. Ordering Provider: BETSY BRADLEY Report Released Date/Time: Sep 01, 2024 12:06 PM Reporting Lab: [facility] [place] [facility] [address] [facility] [address] Performing Lab: [facility] [facility] [address] [facility] [address] [facility] [place] [facility] CBC HEMATOCRIT [VOLUME FRACTION] OF BLOOD BY AUTOMATED COUNT 49.7 39.2 - 50.4 09/06 Specimen Type: BLOOD No comment entered. Ordering Provider: BETSY BRADLEY Report Released Date/Time: Sep 01, 2024 12:06 PM Reporting Lab: [facility] [place] [facility] [address] [facility] [address] Performing Lab: [facility] [place] [facility] [address] [facility] [address] [facility] [place] [facility] CBC MCV [ENTITIC VOLUME] BY AUTOMATED COUNT 93.8 fL 82 - 99 09/06 Specimen Type: BLOOD No comment entered. Ordering Provider: BETSY BRADLEY Report Released Date/Time: Sep 01, 2024 12:06 PM Reporting Lab: [facility] [place] [facility] [address] [facility] [address] Performing Lab: [facility] [place] [facility] [address] [facility] [address] [facility] [place] [facility] CBC MCHC [MASS/VOLUM E] BY AUTOMATED COUNT 36.0 g/dL 30.8 - 35.1 09/06 H Specimen Type: BLOOD No comment entered. Ordering Provider: BETSY BRADLEY Report Released Date/Time: Sep 01, 2024 12:06 PM Reporting Lab: [facility] [place] [facility] [address] [facility] [address] Performing Lab: [facility] [place] [facility] [address] [facility] [address] [facility] [place] [facility] CBC PLATELETS [#/VOLUME] IN BLOOD BY AUTOMATED COUNT 150 10*3/u L 140 - 360 09/06 Specimen Type: BLOOD No comment entered. Ordering Provider: BETSY BRADLEY Report Released Date/Time: Sep 01, 2024 12:06 PM Reporting Lab: [facility] [place] [facility] [address] [facility] [address] Performing Lab: [facility] [place] [facility] [address] [facility] [address] [facility] [place] [facility] CBC ERYTHROCYTE DISTRIBUTIO N WIDTH [RATIO] BY AUTOMATED COUNT 12.8 12.0 - 16.0 09/06 Specimen Type: BLOOD No comment entered. Ordering Provider: BETSY BRADLEY Report Released Date/Time: Sep 01, 2024 12:06 PM Reporting Lab: [facility] [place] [facility] [address] [facility] [address] Performing Lab: [facility] [place] [facility] [address] [facility] [address] [facility] [place] [facility] CBC MCH [ENTITIC MASS] BY AUTOMATED COUNT 33.8 pg 26.2 - 32.6 09/06 H Specimen Type: BLOOD No comment entered. Ordering Provider: BETSY BRADLEY Report Released Date/Time: Sep 01, 2024 12:06 PM Reporting Lab: [facility] [place] [facility] [address] [facility] [address] Performing Lab: [facility] [place] [facility] [address] [facility] [address] [facility] [place] [facility] LIVER FUNCTION PROTEIN [MASS/VOLUM E] IN SERUM OR PLASMA 7.1 g/dL 6.0 - 8.3 09/06 Specimen Type: SERUM No comment entered. Ordering Provider: BETSY BRADLEY Report Released Date/Time: Sep 01, 2024 12:06 PM Reporting Lab: [facility] [place] [facility] [address] [facility] [address] Performing Lab: [facility] [place] [facility] [address] [facility] [address] [facility] [place] [facility] LIVER FUNCTION ALBUMIN [MASS/VOLUM E] IN SERUM OR PLASMA 3.9 g/dL 3.5 - 5.0 09/06 Specimen Type: SERUM No comment entered. Ordering Provider: BETSY BRADLEY Report Released Date/Time: Sep 01, 2024 12:06 PM Reporting Lab: [facility] [place] [facility] [address] [facility] [address] Performing Lab: [facility] [place] [facility] [address] [facility] [address] [facility] [place] [facility] LIVER FUNCTION ALKALINE PHOSPHATASE [ENZYMATIC ACTIVITY/VO LUME] IN SERUM OR PLASMA 116 U/L 40 - 150 09/06 Specimen Type: SERUM No comment entered. Ordering Provider: BETSY BRADLEY Report Released Date/Time: Sep 01, 2024 12:06 PM Reporting Lab: [facility] [place] [facility] [address] [facility] [address] Performing Lab: [facility] [place] [facility] [address] [facility] [address] [facility] [place] [facility] LIVER FUNCTION ASPARTATE AMINOTRANSF ERASE [ENZYMATIC ACTIVITY/VO LUME] IN SERUM OR PLASMA 38 U/L 5 - 34 09/06 H Specimen Type: SERUM No comment entered. Ordering Provider: BETSY BRADLEY Report Released Date/Time: Sep 01, 2024 12:06 PM Reporting Lab: [facility] [place] [address] [address] Performing Lab: [facility] [place] [facility] [address] [facility] [address] [facility] [place] [facility] LIVER FUNCTION ALANINE AMINOTRANSF ERASE [ENZYMATIC ACTIVITY/VO LUME] IN SERUM OR PLASMA 29 U/L 09/06 Specimen Type: SERUM No comment entered. Ordering Provider: BETSY BRADLEY Report Released Date/Time: Sep 01, 2024 12:06 PM Reporting Lab: [facility] [place] [facility] [address] [facility] [address] Performing Lab: [facility] [place] [facility] [address] [facility] [address] [facility] [place] [facility] LIVER FUNCTION BILIRUBIN.T OTAL [MASS/VOLUM E] IN SERUM OR PLASMA 1.2 mg/dL 0.2 - 1.2 09/06 Specimen Type: SERUM No comment entered. Ordering Provider: BETSY BRADLEY Report Released Date/Time: Sep 01, 2024 12:06 PM Reporting Lab: [address] [address] Performing Lab: [facility] [address] [facility] LIVER FUNCTION BILIRUBIN.D IRECT [MASS/VOLUM E] IN SERUM OR PLASMA 0.6 mg/dL 0 - 0.5 09/06 H Specimen Type: SERUM No comment entered. Ordering Provider: BETSY BRADLEY Report Released Date/Time: Sep 01, 2024 12:06 PM Reporting Lab: [facility] [address] [address] Performing Lab: [facility] [address] [address] [facility] COPEPTIN COPEPTIN 7.3 07/14 Specimen Type: SERUM Comment: REFERENCE RANGE: <= 13.7 pmol/L This test was developed and its analytical performance characteris tics have been determined by [facility] . It has not been cleared or approved by FDA. This assay has been validated pursuant to the CLIA regulations and is used for clinical purposes. Test performed by [facility] [address] [place] [id number] Phone: Crankshaft Grinder: Estela Barlow MD,PHD,PATSY Test Reported by [employer], [facility] [place], [address] [place] [address] Seamus Joseph M.D., Ph.D., Director of Laboratorie s , CLIA [id number] TEST PERFORMED AT: , Ordering Provider: JOSÉ RILEY Report Released Date/Time: Jul 13, 2024 09:00 AM Reporting Lab: [facility] [place] [facility] [address] [facility] [address] Performing Lab: [facility] [place] [facility] [address] [address] [facility] [place] [facility] OSMOLALIT Y (SERUM) OSMOLALITY OF SERUM OR PLASMA 267 280 - 300 07/14 L Specimen Type: SERUM Comment: Manually entered by: RTO Ordering Provider: JOSÉ RILEY Report Released Date/Time: Jul 13, 2024 09:00 AM Reporting Lab: [facility] [place] [place] [facility] [address] [facility] [address] Performing Lab: [facility] [place] [facility] [address] [facility] [address] [facility] OSMOLALIT Y (URINE) OSMOLALITY OF URINE 354 300 - 1000 07/14 Specimen Type: URINE Comment: Manually entered by: RTO Ordering Provider: JOSÉ RILEY Report Released Date/Time: Jul 13, 2024 09:00 AM Reporting Lab: [facility] [place] [facility] [address] [facility] [address] Performing Lab: [facility] [place] [facility] [address] [facility] [address] [facility] [place] [facility] SODIUM RANDOM URINE SODIUM, URINE 53 mmol/L 20 - 400 07/14 Specimen Type: URINE No comment entered. Ordering Provider: JOSÉ RILEY Report Released Date/Time: Jul 13, 2024 09:00 AM Reporting Lab: [facility] [place] [facility] [address] [facility] [address] Performing Lab: [facility] [place] [facility] [address] [facility] [address] [facility] [place] [facility] BASIC METABOLIC PANEL (non-fast ing) UREA NITROGEN [MASS/VOLUM E] IN SERUM OR PLASMA 15 mg/dL 7 - 25 07/14 Specimen Type: SERUM No comment entered. Ordering Provider: JOSÉ RILEY Report Released Date/Time: Jul 13, 2024 09:00 AM Reporting Lab: [facility] [address] [facility] [address] Performing Lab: [facility] [address] [facility] [address] [facility] BASIC METABOLIC PANEL (non-fast ing) GLUCOSE [MASS/VOLUM E] IN SERUM OR PLASMA 95 mg/dL 65 - 100 07/14 Specimen Type: SERUM No comment entered. Ordering Provider: JOSÉ RILEY Report Released Date/Time: Jul 13, 2024 09:00 AM Reporting Lab: [facility] [address] [facility] [address] Performing Lab: [facility] [address] [facility] [address] [facility] BASIC METABOLIC PANEL (non-fast ing) SODIUM [MOLES/VOLU ME] IN SERUM OR PLASMA 128 mmol/L 135 - 145 07/14 L Specimen Type: SERUM No comment entered. Ordering Provider: JOSÉ RILEY Report Released Date/Time: Jul 13, 2024 09:00 AM Reporting Lab: [facility] [address] [facility] [address] Performing Lab: [facility] [address] [facility] [address] [facility] BASIC METABOLIC PANEL (non-fast ing) POTASSIUM [MOLES/VOLU ME] IN SERUM OR PLASMA 4.9 mmol/L 3.5 - 5.0 07/14 Specimen Type: SERUM No comment entered. Ordering Provider: JOSÉ RILEY Report Released Date/Time: Jul 13, 2024 09:00 AM Reporting Lab: [facility] [address] [facility] [address] Performing Lab: [facility] [address] [facility] [address] [facility] BASIC METABOLIC PANEL (non-fast ing) CHLORIDE [MOLES/VOLU ME] IN SERUM OR PLASMA 88 mmol/L 100 - 110 07/14 L Specimen Type: SERUM No comment entered. Ordering Provider: JOSÉ RILEY Report Released Date/Time: Jul 13, 2024 09:00 AM Reporting Lab: [facility] [address] [address] Performing [facility]: [facility] [address] [address] [facility] BASIC METABOLIC PANEL (non-fast ing) CARBON DIOXIDE, TOTAL [MOLES/VOLU ME] IN SERUM OR PLASMA 24 meq/L 20 - 30 07/14 Specimen Type: SERUM No comment entered. Ordering Provider: JOSÉ RILEY Report Released Date/Time: Jul 13, 2024 09:00 AM Reporting Lab: [facility] [address] [address] Performing Lab: [facility] [address] [address] [facility] BASIC METABOLIC PANEL (non-fast ing) CREATININE [MASS/VOLUM E] IN SERUM OR PLASMA 0.91 mg/dL 0.50 - 1.40 07/14 Specimen Type: SERUM No comment entered. Ordering Provider: JOSÉ RILEY Report Released Date/Time: Jul 13, 2024 09:00 AM Reporting Lab: [facility] [address] [address] Performing Lab: [facility] [address] [address] [facility] BASIC METABOLIC PANEL (non-fast ing) GLOMERULAR FILTRATION RATE/1.73 SQ M.PREDICTED [VOLUME RATE/AREA] IN SERUM, PLASMA OR BLOOD BY CREATININE- BASED FORMULA (CKD-EPI 2020) 90 mL/min 60 07/14 Specimen Type: SERUM No comment entered. Ordering Provider: JOSÉ RILEY Report Released Date/Time: Jul 13, 2024 09:00 AM Reporting Lab: [facility] [address] [address] Performing Lab: [facility] [address] [facility] [address] [facility] THYROID T4 FREE(FT4) (WROX) THYROXINE (T4) FREE [MASS/VOLUM E] IN SERUM OR PLASMA 1.38 ng/dL 0.6 - 1.6 07/12 Specimen Type: SERUM No comment entered. Ordering Provider: JOSÉ RILEY Report Released Date/Time: Jul 09, 2024 10:34 AM Reporting Lab: [facility] [address] [facility] [address] Performing Lab: [facility] [address] [facility] [address] [facility] Vital Signs Combined list of inpatient and outpatient Vital Signs from Department of Defense and Veterans Affairs, ranging from 12 months to all on record, depending upon the facility. Vital Sign Value Date Comments Source SYSTOLIC BLOOD PRESSURE 148 09/14/20 07:53:09 [facility] DIASTOLIC [...] [facility] [place] [facility] DIASTOLIC BLOOD PRESSURE 80 10/17/2 024 07:54:08 [facility] [...] included; 2) Encounters from the Department of [facility] facilities going backup to 280 months. Location Location Details Encounter Type Encounter Number Reason For Visit Attending Provider ADM Date DC Date Status Disposition Source [facility] [place] Outpatient Encounter [id number] 09/04 [facility] OFFICE O/P EST LOW 20-29 MIN [id number] Diagnos is: ICD-10- CM R91.1 Solitar y pulmona ry nodule Meseret BRADLEY 09/11 [facility] Out[facility] Encounter [id number] 10/04 [facility] OFF[place] 40 MIN [id number] Diagnos is: ICD-10- CM 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 RHONDA RILEY CE 10/23 [facility] Encounter [id number] 10/25 [facility] Encounter [id number] 11/04 [facility] Outpatient Encounter [id number] Diagnos is: ICD-10- CM 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 SHIKHA SEVILLA 11/04 [facility] Out[facility] Encounter [id number] 11/18 [facility] Encounter [id number] Diagnos is: ICD-10- CM 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 RHONDA RILEY CE 11/19 [facility] Encounter [id number] [facility] Encounter [id number] 12/28 [facility] Encounter [id number] 12/28 [facility] Encounter [id number] 12/29 [facility] [place] [facility] OFFICE O/P EST MOD 30 MIN [id number] Diagnos is: ICD-10- CM 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 RHONDA RILEY 01/20 [facility] Encounter [id number] 01/20 [facility] Encounter [id number] 01/24 [facility] Out[facility] Encounter [id number] 03/04 [facility] OFFICE O/P EST LOW 20 MIN [id number] Diagnos is: ICD-10- CM R91.1 Solitar y pulmona ry nodule Meseret BRADLEY 03/12 [facility] Encounter [id number] 03/24 [facility] Out[facility] Encounter [id number] 04/01 [facility] Out[facility] Encounter [id number] 07/13 [facility] Outpatient Encounter [id number] Diagnos is: ICD-10- CM 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 RHONDA RILEY 07/13 [facility] Out[facility] Encounter [id number] 07/16 [facility] OFFICE O/P EST MOD 30 MIN [id number] Diagnos is: ICD-10- CM 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 Diagnos is: ICD-10- CM J44.9 Chronic obstruc tive pulmona ry disease , unspeci fied Meseret BRADLEY 09/14 [facility] [place] Outpatient Encounter [id number] 09/14 [facility] [place] [facility] PRO PHONE CALL 11-20 MIN [id number] Diagnos is: ICD-10- CM J44.9 Chronic obstruc tive pulmona ry disease , unspeci fied JARMOLOWKASANDRA GARCIASY 09/17 [facility] [place] Outpatient Encounter [id number] 10/18 [facility] [place] [facility] Outpatient Encounter [id number] 11/25 [facility] [place] [place] [facility] NQHP OL DIG ASSMT&MGMT 08-25 [id number] Diagnos is: ICD-10- CM J44.9 Chronic obstruc tive pulmona ry disease , unspeci fied SOVEROW,CH RISTY A 11/26 [facility] [place] [facility] Social History Combined list of available smoking, tobacco, and other social history from Department of Defense and Veterans Affairs facilities. Social History Type Response Date Comment Sourc e Tobacco smoking status NHIS VA-TOBACCO USE EVERY DAY CIGARETTES 09/14/2024 [facility] [place] [facility] History of tobacco use AK-TOBACCO NEVER USED OTHER TYPE 09/14/2024 [facility] [place] [facility] History of tobacco use AK-TOBACCO USE WI 30 MIN OF WAKEUP 09/04/2023 [facility] [place] [facility] History of tobacco use AK-TOBACCO USER EVERY DAY 10/01/2022 [facility] [place] [facility] History of tobacco use VA-TOBACCO USER EVERY DAY 09/07/2021 [facility] [place] [facility] History of tobacco use VA-TOBACCO USER EVERY DAY 06/08/2020 [facility] [place] [facility] 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 Additional future care activities may be listed in the Assessment and Plan section. Date/Time Care Activity Care Activity Detail Facili ty 01/20/2025 AMBULATORY - MEDICINE AMBULATORY - MEDICI NE [facility] [place] [facility] 01/20/2025 AMBULATORY - NONE AMBULATORY - NONE [facility] [place] [facility] 01/16/2025 Laboratory - Public Service Officer ry Order CALCIUM BLOOD (SST-SERUM) SP [facility] [place] [facility] 01/16/2025 Laboratory - Public Service Officer ry Order BASIC METABOLIC PANEL (non-fasting) BLOOD (SST-SERUM) SP [facility] 01/16/2025 Laboratory - Public Service Officer ry Order VITAMIN D (25-OH) BLOOD (SST-SERUM) SP [facility] 01/20/2025 Imaging - CT Scan Order CT THORAX W/O CON T [facility]
== END 2024-12-13 11:41 | disposition home or self-care (01) ==
PROVIDERS: PCP Nurse Practitioner Family; Visit Provider Internal Medicine Pulmonary Disease
DX: J44.9 Chronic obstructive pulmonary disease, unspecified (principal); Z99.81 Dependence on supplemental oxygen; Z87.891 Personal history of nicotine dependence; R06.09 Other forms of dyspnea
CPT/HCPCS: 99214; G2211

== ENCOUNTER → 2024-12-13 11:23 | Outpatient (BNVA) | payer OTHER, SELFPAY | PROVIDERS: PCP Nurse Practitioner Family; Visit Provider Internal Medicine Pulmonary Disease | DX: J44.9 Chronic obstructive pulmonary disease, unspecified (principal); R06.09 Other forms of dyspnea; Z99.81 Dependence on supplemental oxygen; Z87.891 Personal history of nicotine dependence | CPT/HCPCS: 99212 ==

== ENCOUNTER 2025-01-06 13:07 | Outpatient (AMB) | payer OTHER, SELFPAY ==
[2025-01-06 13:08] VITALS: BP 102/60; PULSE 100; O2SAT 93; BMI 32.4
--- NOTE | 2025-01-06 13:08 | A.OFFVIS_ITS ---
Vital Signs 01/06/25 13:08 Height 5 ft 8 in Weight 213 lb BMI 32.4 BP 102/60 Blood Pressure Location Lt brachial Position Sitting Pulse 100 Pulse Source Doppler Pulse Oximetry (%) 93 Oxygen Delivery Method Room Air Intake Visit Reasons: copd Allergies hydrochlorothiazide Adverse Reaction (Severe, Verified 12/13/24 11:34) Rash HPI HPI copd: Details: 69-year-old gentleman, recent 40+ pack-year smoker followed for severe to very severe COPD. His symptoms are suboptimally controlled on Stiolto, Wixela, duo nebs, and albuterol MDI. Patient was ordered Ohtuvayre and Yupelri currently not being covered by his [facility] insurance. He restarted on diuretic with improved control of his orthopnea and lower extremity edema. He denies acute exacerbations. [facility] Social History (Updated 10/18/24 @ 09:48 by OLENA Mendes) Patient Tobacco Use Status: Current everyday Tobacco user Tobacco use type: Cigarette Years Smoked: started at age 12, 2-3 PPD, quit 10/16/2024 Review of Systems Const Denies daytime sleepiness, Denies excessive sweating, Denies fatigue, Denies fever(s), Denies lethargy, Denies malaise, Denies night sweats, Denies snoring and Denies weight loss Eyes Denies blurry vision and Denies itchy eyes ENT Denies nasal congestion, Denies post nasal drip, Denies sinus pain, Denies sinus pressure and Denies other ( Thrush) Card Denies chest pain, Denies pedal edema, Denies dyspnea, Reports dyspnea on exertion, Denies orthopnea and Denies paroxysmal nocturnal dyspnea Resp Denies cough, Denies hemoptysis, Denies excessive phlegm production, Denies dyspnea, Reports dyspnea on exertion, Denies snoring and Denies wheezing GI Denies abdominal pain and Denies heartburn Musc Denies myalgias, Denies arthralgias and Denies joint swelling Skin/Breast Denies rash Neuro Denies memory loss and Denies seizure-like activity Psych Denies abnormal sleep pattern, Denies anxiety and Denies memory loss Endo Denies excessive sweating, Denies fatigue and Denies heat intolerance Saw/Lymph Denies easy bruising Aller/Immun Denies itchy eyes, Denies seasonal rhinorrhea and Denies wheezing Physical Exam Vital Signs: Last Vital Signs Pulse 100 01/06/25 13:08 BP 102/60 01/06/25 13:08 Pulse Ox 93 01/06/25 13:08 Oxygen Delivery Method Room Air 01/06/25 13:08 BMI result Body Mass Index 32.4 Const General: no acute distress and alert Nutritional Appearance: not obese Orientation/consciousness: Other orientation findings ( oriented) HEENT Head: Yes atraumatic Eyes General: appearance normal, both eyes and all related structures Sclerae: sclerae normal EOM: EOMs intact bilaterally Neck Neck: Yes supple Lymphatic: no lymphadenopathy noted Resp Effort & Inspection: normal respiratory effort and no use of accessory muscles Auscultation: clear to auscultation bilaterally Cardio Rate: regular rate Rhythm: regular rhythm Heart sounds: no gallops, no murmurs and no rubs Skin General skin exam: other ( warm) Extrem General: No clubbing, No cyanosis and No edema Assessment & Plan Assessment & Plan (1) COPD (chronic obstructive pulmonary disease): Code(s): J44.9 - Chronic obstructive pulmonary disease, unspecified Category: Medical Plan: Suboptimal control on Stiolto, Wixela, and albuterol MDI/nebs. [facility] at this time not covering Ohtuvayre and Yupelri despite underlying significant symptoms and severe COPD. Will add theophylline. (2) Supplemental oxygen dependent: Code(s): Z99.81 - Dependence on supplemental oxygen Category: Medical Plan: Continue supplemental oxygen to maintain saturation of 89-93%. (3) Personal history of nicotine dependence: Code(s): Z87.891 - Personal history of nicotine dependence Category: Medical Plan: Results of lung cancer screening CT chest reviewed, no worrisome nodules, continue with yearly screening, next in March 2025. (4) Dyspnea on exertion: Code(s): R06.09 - Other forms of dyspnea Category: Medical Plan: Orthopnea lower extremity edema improved on current diuretic regimen of furosemide 40 mg daily. Continue current regimen. Orders: Orders CT lung screening 03/08/25 Z87.891 - Personal history of nicotine dependence Medications: New theophylline ER 400 mg PO DAILY 30 tabs 6RF Coding Level of Care Code Est Pt Level 4 (64300) Complex EM visit Add On G2211 Diagnoses COPD (chronic obstructive pulmonary disease) J44.9 Supplemental oxygen dependent Z99.81 Personal history of nicotine dependence Z87.891 Dyspnea on exertion R06.09
--- OUTSIDE RECORDS SUMMARY | 2025-01-06 14:20 | XMS_ITS | Encounter Summary ---
Author Name [facility] [place] [facility] [place] [facility] [facility] [place] Address [address] [place] [id number] Care Team Providers Care Corporate Law Assistant Name Role Phone SHERLYN BRADLEY Primary Care Provider [facility] Insurance Providers: All historical and [...] PART B Apr 05, 2020 PART B [id number] [facility] [place] PATIENT MEDICARE (WNR) MEDICARE (M) PART A Mar 06, 2019 PART A [id number] [place] F[place]LEY PATIENT Selected Encounter This section includes the information on record at [place] for the Encounter. Date/Time Encounter Type Encounter [...] 2024 08:24 AM PRIMARY Hypo-osmolality and hyponatremia [facility] Plan of Treatment: Future Appointments (+ 6 months) and Future Tests (+/- 45 days) The Plan of Treatment section includes future care activities for the patient from all [place] [facility] This section includes future appointments and future orders which are active, pending or scheduled. Future Appointments This section includes appointments that were scheduled to occur 6 months from the date of the Encounter, up to a maximum of 20 appointments. The data comes from all [place] treatment facilities. Appointment Date/Time Appointment Type Appointme nt Facility Name Sep 14, 2024 08:00 AM AMBULATORY - MEDICINE [facility] Oct 18, 2024 09:45 AM AMBULATORY MEDICINE [facility] NTR WSTRN [facility] Oct 21, 2024 08:30 AM [facility] Jan 06, 2025 10:30 AM AMBULATORY - MEDICINE [facility] N[facility]L [facility] Jan 20, 2025 08:00 AM AMBULATORY - MEDICINE [facility] NTRL TRN [facility] Jan 20, 2025 08:45 AM [facility] - [facility] Lab Results: +/- 30 days of the encounter This section includes the Chemistry and Hematology Lab Results on record with [place] for the patient. Radiology Reports and Pathology Reports are provided separately, in subsequent sections. Lab Results This section contains the Chemistry/Hematology Results that were resulted 30 days before or 30 daysafter the date of the Encounter. Date/Time Source Result Type Result - Unit Interpretation Reference Range Comment Jul 14, 2024 09:10 AM [facility] COPEPTIN Specimen Type: SERUM Comment: REFERENCE RANGE: <= 13.7 pmol/L This test was developed and its analytical performance characteristics have been determined by [employer]. It has not been cleared or approved by FDA. This assay has been validated pursuant to the CLIA regulations and is used for clinical purposes. Test performed by [employer] [address] [place] [address] Incinerator Attendant: Estela Barlow MD,PHD,PATSY Test Reported by Saleem Mcdowell, [employer] [facility], [address] [place], [place] Seamus Joseph M.D., Ph.D., Director of Laboratories , [facility] [id number] TEST PERFORMED AT: , Ordering Provider: JEEVAN RILEY Report Released Date/Time: Jul 13, 2024 09:00 AM Reporting Lab: [place] [facility] [place] [facility] [address] [facility] [address] Performing Lab: [facility] [place] [facility] [address] [address] COPEPTIN 7.3 SEE BELOW Jul 14, 2024 09:10 AM [place] [facility] [facility] [place] [facility] OSMOLALITY (SERUM) Specimen Type: SERUM Comment: Manually entered by: RTO Ordering Provider: JEEVAN RILEY Report Released Date/Time: Jul 13, 2024 09:00 AM Reporting Lab: [facility] [place] [facility] [address] [facility] [address] Performing Lab: [facility] [place] [facility] [address] [facility] [address] OSMOLALITY (SERUM) 267 L [phone] Jul 14, 2024 09:10 AM [facility] [place] [facility] OSMOLALITY (URINE) Specimen Type: URINE Comment: Manually entered by: RTO Ordering Provider: JEEVAN RILEY Report Released Date/Time: Jul 13, 2024 09:00 AM Reporting Lab: [facility] [place] [facility] [address] [facility] [address] Performing Lab: [place] [facility] [facility] [address] [facility] [address] OSMOLALITY (URINE) [phone] Jul 14, 2024 09:10 AM [place] [facility] [facility] [place] [facility] SODIUM RANDOM URINE Specimen Type: URINE No comment entered. Ordering Provider: JEEVAN RILEY Report Released Date/Time: Jul 13, 2024 09:00 AM Reporting Lab: [place] [facility] [facility] [address] [facility] [address] Performing Lab: [facility] [place] [facility] [address] [facility] [address] SODIUM, URINE 53 mmol/L 20-400 Jul 14, 2024 09:10 AM [facility] BASIC METABOLIC PANEL (non-fasting) Specimen Type: SERUM No comment entered. Ordering Provider: JEEVAN RILEY Report Released Date/Time: Jul 13, 2024 09:00 AM Reporting Lab: [facility] [address] [facility] [address] Performing Lab: [facility] [address] [facility] [address] UREA NITROGEN 15 mg/dL 7-25 GLUCOSE 95 mg/dL 65-100 SODIUM 128 mmol/L L 135-145 POTASSIUM 4.9 mmol/L 3.5-5.0 CHLORIDE 88 mmol/L L 100-110 CO2 24 meq/L 20-30 CREATININE, Serum 0.91 mg/dL 0.50-1.40 eGFR(CKD-EPI 2020) 90 mL/min >60 Jul 12, 2024 01:01 PM [facility] THYROID T4 FREE(FT4) (WROX) Specimen Type: SERUM No comment entered. Ordering Provider: JEEVAN RILEY Report Released Date/Time: Jul 09, 2024 10:34 AM Reporting Lab: [facility] [address] [facility] [address] Performing Lab: [facility] [address] [facility] [address] THYROID T4 FREE(FT4) (WROX) 1.38 ng/dL 0.6-1.6 Jul 12, 2024 01:01 PM [facility] TSH Specimen Type: SERUM No comment entered. Ordering Provider: JEEVAN RILEY Report Released Date/Time: Jul 09, 2024 10:34 AM Reporting Lab: [facility] [address] [facility] [address] Performing Lab: [facility] [address] [facility] [address] TSH 1.37 u[IU]/mL 0.35-5.00 Jul 12, 2024 01:01 PM [facility] CALCIUM Specimen Type: SERUM No comment entered. Ordering Provider: JEEVAN RILEY Report Released Date/Time: Jul 09, 2024 10:34 AM Reporting Lab: [facility] [address] [facility] [address] Performing Lab: [address] [address] CALCIUM 10.0 mg/dL 8.5-10.2 Jul 12, 2024 01:01 PM [facility] VITAMIN D (25-OH) Specimen Type: SERUM No comment entered. Ordering Provider: JEEVAN RILEY Report Released Date/Time: Jul 09, 2024 10:34 AM Reporting Lab: [address] [address] Performing Lab: [address] [address] VITAMIN D (25-OH) 44 ng/mL 20-50 Jul 12, 2024 01:01 PM [facility] BASIC METABOLIC PANEL (non-fasting) Specimen Type: SERUM No comment entered. Ordering Provider: JEEVAN RILEY Report Released Date/Time: Jul 09, 2024 10:50 AM Reporting Lab: [address] [address] Performing Lab: [address] [address] UREA NITROGEN 13 mg/dL 7-25 GLUCOSE 78 [...] 100 138/80 16 91 0 195 30 [facility] Social History: Smoking Status (Most current) and Tobacco Use (All prior to encounter date) This section includes the most current, and the historical, smoking and tobacco- related health factors from the [place] facility where the Encounter took place. Current Smoking Status This section includes the most current smoking, or tobacco-related health factor, from the [place] facility where the Encounter took place. Date/Time Current Smoking Status Comment Facil ity Sep 04, 2023 01:14 PM VA-TOBACCO USER EVERY DAY [place] CN[facility]L [facility] Tobacco Use History This section includes a history of the smoking, or tobacco-related health factors, that were collected on or before the date of the Encounter. The data comes from the [place] facility where the Encounter took place. Date/Time Smoking Status/Tobacco Use Comment F acility Sep 04, 2023 01:14 PM VA-TOBACCO USE ADVICE [facility] [place] [facility] Sep 04, 2023 01:14 PM VA-TOBACCO USE SHAGGER NO [facility] [place] [facility] Sep 04, 2023 01:14 PM VA-TOBACCO USE MED NO [facility] [place] [facility] Sep 04, 2023 01:14 PM VA-TOBACCO USE WI 30 MIN OF WAKEUP [place] [facility] [place] [facility] Sep 04, 2023 01:14 PM VA-TOBACCO USER EVERY DAY [facility] [place] [facility] Oct 01, 2022 09:45 AM VA-TOBACCO DOESNT USE WI 30 MIN WAKEUP [facility] [place] [facility] Oct 01, 2022 09:45 AM VA-TOBACCO USE 30 YEARS OR MORE [facility] [place] [facility] Oct 01, 2022 09:45 AM VA-TOBACCO USE ADVICE [facility] [place] [facility] Oct 01, 2022 09:45 AM VA-TOBACCO USE SHAGGER NO [facility] [place] [facility] Oct 01, 2022 09:45 AM VA-TOBACCO USE MED NO [facility] [place] [facility] Oct 01, 2022 09:45 AM VA-TOBACCO USER EVERY DAY [facility] [place] [facility] Sep 07, 2021 10:30 AM VA-TOBACCO USE 30 YEARS OR MORE [facility] [place] [facility] Sep 07, 2021 10:30 AM VA-TOBACCO USE ADVICE [facility] [place] [facility] Sep 07, 2021 10:30 AM VA-TOBACCO USE SHAGGER NO [facility] [place] [facility] Sep 07, 2021 10:30 AM VA-TOBACCO USE MED NO [facility] [place] [facility] Sep 07, 2021 10:30 AM VA-TOBACCO USE WI 30 MIN OF WAKEUP [facility] [place] [facility] Sep 07, 2021 10:30 AM VA-TOBACCO USER EVERY DAY [facility] [place] [facility] Jun 08, 2020 09:00 AM VA-TOBACCO USE 30 YEARS OR MORE [facility] [place] [facility] Jun 08, 2020 09:00 AM VA-TOBACCO USE ADVICE [facility] [place] [facility] Jun 08, 2020 09:00 AM VA-TOBACCO USE SHAGGER NO [facility] [place] [facility] Jun 08, 2020 09:00 AM VA-TOBACCO USE MED NO [facility] [place] [facility] Jun 08, 2020 09:00 AM VA-TOBACCO USE WI 30 MIN OF WAKEUP [facility] [place] [facility] Jun 08, 2020 09:00 AM VA-TOBACCO USER EVERY DAY [facility] [place] [facility] Feb 01, 2019 02:27 PM VA-TOBACCO USE 30 YEARS OR MORE [facility] [place] [facility] Feb 01, 2019 02:27 PM VA-TOBACCO USE ADVICE [facility] [place] [facility] Feb 01, 2019 02:27 PM VA-TOBACCO USE SHAGGER NO [facility] [place] [facility] Feb 01, 2019 02:27 PM VA-TOBACCO USE MED NO [facility] [place] [facility] Feb 01, 2019 02:27 PM VA-TOBACCO USE WI 30 MIN OF WAKEUP [facility] [place] [facility] Feb 01, 2019 02:27 PM VA-TOBACCO USER EVERY DAY [facility] [place] [facility] Apr 02, 2018 02:47 PM CURRENT SMOKER VA C [facility]TRL [facility] [place] [facility] Apr 02, 2018 02:47 PM V1-PT DECLINES REF TO TOBACCO CESS PRGM [facility] Apr 02, 2018 02:47 PM V1-PT DECLINES TOB [facility] Apr 02, 2018 02:47 PM V1-PT THINKING ABO UT QUIT TOBACCO USE [facility] Encounter Notes: All associated encounter notes [...] 14, 2024@09:10 OSMOLALITY (SERUM): 267 L mOsm/K [id number] - 300 FEBRUARY 11, 2023 DEXA scan. Comparison: None. Findings: Measurement of bone mineral content gives a T score of -2.5 in the hip, and -1.2 in the lumbar spine. Active problems - Computerized Problem List is the source for the followin. Multiple nodules of lung 2. Osteoporosis 3. Benign neoplasm of pituitary gland 4. Diplopia 5. Hypothyroid 6. Polyp Colon ([facility] [id number]) 7. Aneurysm of thoracic aorta 8. HTN - Hypertension ([facility] [id number]) 9. Hyperlipidemia ([facility] [id number]) 10. Chronic obstructive lung disease 11. Tobacco user 12. Elevated blood-pressure reading without diagnosis of hypertension 13. Dyspnea ([facility] [id number]) 14. Diagnosis or Condition Deferred on [place] Active Outpatient Medications (including Supplies): Active [...] of active outpatient prescriptions dispensed from this [place] (local) and dispensed from another [place] or [facility] facility (remote) as well as inpatient orders [...] Remote Allergy/ADR Data available for this patient [place] [facility] [facility] HCTZ HYDROCHLOROTHIAZIDE Med [facility] NoGloary (Tool #1) INCLUDED IN THIS LIST: Alphabetical list of active outpatient prescriptions dispensed from this [place] (local) and dispensed from another [place] or [facility] facility (remote) as well as inpatient orders (local pending and active), local clinic medications, locally documented non-VA medications, and local prescriptions that have or been discontinued in the past 90 days. Non-VA Meds Last Documented On: Data not found NOTE The display of VA prescriptions dispensed from another [place] or [facility] facility (remote) is limited to active outpatient prescription entries matched to National Drug File at the originating site and may not include some items such as investigational drugs, compounds, etc. NOT INCLUDED IN THIS LIST: Medications self-entered by the patient into personal health records (i.e. [employer]) are NOT included in this list. Non-VA medications documented outside this [place], remote inpatient orders (regardless of status) and remote clinic medications are NOT included in this list. The patient and provider must always discuss medications the patient is taking, regardless of where the medication was dispensed or obtained. OUTPT ALBUTEROL 90MCG (CFC-F) 200D ORAL INHL (Status = Active) INHALE 2 PUFFS BY MOUTH EVERY 4 HOURS NEEDED FOR BREATHING Rx# [id number] Last Released: 07/01/24 Qty/Days Supply: Rx Expiration Date: 01/21/25 Refills Remainin OUTPT ATORVASTATIN CALCIUM 40MG TAB (Status = Active) TAKE ONE-HALF TABLET BY MOUTH ONCE DAILY FOR CHOLESTEROL Rx# [id number] Last Released: 05/17/24 Qty/Days Supply: 45 Rx Expiration Date: 09/11/24 Refills Remainin OUTPT CALCIUM 200MG (CA CITRATE-950MG) TAB (Status = Active) TAKE THREE TABLETS BY MOUTH TWICE DAILY Rx# [id number] Last Released: 07/09/24 Qty/Days Supply: 540 Rx Expiration Date: 10/07/24 Refills Remainin Indication: FOR OSTEOPOROSIS OUTPT CHOLECALCIF 25MCG (D3-1,000UNIT) TAB (Status = ) TAKE ONE TABLET BY MOUTH ONCE DAILY FOR VITAMIN SUPPLEMENTATION Rx# [id number] Last Released: 03/12/24 Qty/Days Supply: Rx Expiration Date: 04/26/24 Refills Remainin Indication: FOR VITAMIN D DEFICIENCY OUTPT CHOLECALCIF 25MCG (D3-1,000UNIT) TAB (Status = Active) TAKE ONE TABLET BY MOUTH ONCE DAILY FOR VITAMIN SUPPLEMENTATION Rx# [id number] Last Released: 07/09/24 Qty/Days Supply: Rx Expiration Date: 10/07/24 Refills Remainin Indication: FOR VITAMIN D DEFICIENCY OUTPT DEMECLOCYCLINE HCL 150MG TAB (Status = Active) TAKE ONE TABLET BY MOUTH TWICE DAILY FOR INFECTION Rx# [id number] Last Released: 07/20/24 Qty/Days Supply: Rx Expiration Date: 07/17/25 Refills Remainin Indication: FOR INFECTION OUTPT FLUTICAS 250/SALMETEROL 50 INHL DISK 60 (Status = Active) INHALE 1 PUFF BY MOUTH TWICE DAILY - RINSE MOUTH AFTER USE REPLACES SYMBICORT (BUDESONIDE/FORMOTEROL) Rx# [id number] Last Released: 07/09/24 Qty/Days Supply: 11/04 Rx Expiration Date: 12/04/24 Refills Remainin OUTPT LEVOTHYROXINE NA (SYNTHROID) 88MCG TAB (Status = Active) TAKE ONE TABLET BY MOUTH EVERY MORNING 30 MINUTES BEFORE BREAKFAST TAKE ON AN EMPTY STOMACH WITH A FULL GLASS OF WATER Rx# [id number] Last Released: 07/09/24 Qty/Days Supply: Rx Expiration Date: 12/29/24 Refills Remainin Indication: FOR THYROID OUTPT LISINOPRIL 30MG TAB (Status = Active) TAKE ONE TABLET BY MOUTH ONCE DAILY TO CONTROL BLOOD PRESSURE NOTE NEW TABLET STRENGTH Rx# [id number] Last Released: 07/09/24 Qty/Days Supply: Rx Expiration Date: 09/11/24 Refills Remainin OUTPT NAPROXEN 500MG TAB (Status = Active) TAKE ONE TABLET BY MOUTH EVERY 12 HOURS NEEDED TAKE WITH FOOD; FOR PAIN/INFLAMMATION/SWELLING Rx# [id number] Last Released: 03/12/24 Qty/Days Supply: Rx Expiration Date: 03/13/25 Refills Remainin Indication: FOR PAIN OUTPT TIOTROPIUM 2.5MCG/ACTUAT 60D ORAL INHL (Status = Active) INHALE 2 PUFFS BY MOUTH ONCE DAILY THIS REPLACES TIOTROPIUM HANDIHALER CAPSULES Rx# [id number] Last Released: 05/17/24 Qty/Days Supply: Rx Expiration Date: 09/11/24 Refills Remainin SUPPLIES /lolly/ JEEVAN RILEY MD STAFF PHYSICIAN Signed: 07/22/2024 08:24 JEEVAN RILEY [facility] [place] [facility]
--- OUTSIDE RECORDS SUMMARY | 2025-01-06 14:20 | XMS_ITS ---
Author Name [facility] [place] [facility] [place] [facility] [place] Address [address] [place] [id number] Care Team Providers Care Centerless Grinder Set Up Operator Name Role Phone SHERLYN LENTZ Primary Care Provider Unavailcarrier clinic Insurance Providers: All historical and current Section [...] PART B Apr 05, 2020 PART B [id number] [facility] [place] PATIENT MEDICARE (WNR) MEDICARE ([place]) PART A Mar 06, 2019 PART A [id number] [facility] [place] PATIENT Selected Encounter This section includes the information on record at [place] for the Encounter. Date/Time Encounter Type Encounter Description Reason Provider Source Sep 14, 2024 08:00 AM OFFICE O/P EST HI 40 MIN PRIMARY CARE/MEDICINE ICD-10-CM J44.9 Chronic obstructive pulmonary disease, unspecified PHILLIP LENTZ AM Encounter Template Text not used by [place] Assessments - Encounter Diagnoses This section includes the primary and secondary diagnoses documented for the Encounter. Date/Time Primary/Secondary Diagnosis Diagnosis Name Provider Source Sep 14, 2024 10:22 AM PRIMARY Chronic obstructive pulmonary disease, unspecified [facility] Sep 14, 2024 10:22 AM SECONDARY Age-related osteoporosis w/o current pathological fracture [facility] Sep 14, 2024 10:22 AM SECONDARY Benign neoplasm of pituitary gland [facility] Sep 14, 2024 10:22 AM SECONDARY Dyspnea, unspecified [facility] Sep 14, 2024 10:22 AM SECONDARY Encounter for [facility] Sep 14, 2024 10:22 AM SECONDARY Encounter for screening for other disorder [facility] Sep 14, 2024 10:22 AM SECONDARY Essential (primary) hypertension [facility] Sep 14, 2024 10:22 AM SECONDARY Hyperlipidemia, unspecified [facility] Sep 14, 2024 10:22 AM SECONDARY Hypo-osmolality and hyponatremia [facility] Sep 14, 2024 10:22 AM SECONDARY Hypothyroidism, unspecified [facility] Sep 14, 2024 10:22 AM SECONDARY Solitary pulmonary nodule [facility] Sep 14, 2024 10:22 AM SECONDARY Tobacco abuse counseling [facility] Sep 14, 2024 10:22 AM SECONDARY Tobacco use [facility] Plan of Treatment: Future Appointments (+ 6 months) and Future Tests (+/- 45 days) The Plan of Treatment section includes future care activities for the patient from all [place] treatmentfacilities. This section includes future appointments and future orders which are active, pending or scheduled. Future Appointments This section includes appointments that were scheduled to occur 6 months from the date of the Encounter, up to a maximum of 20 appointments. The data comes from all [place] treatment facilities. Appointment Date/Time Appointment Type Appointme nt Facility Name Oct 18, 2024 09:45 AM [facility] Oct 21, 2024 08:30 AM [facility] Jan 06, 2025 10:30 AM AMBULATORY - MEDICINE [facility] Jan 20, 2025 08:00 AM AMBULATORY - MEDICINE [facility] Jan 20, 2025 08:45 AM AMBULATORY - NONE [facility] Lab Results: +/- 30 days of [...] Range Comment Sep 06, 2024 09:52 AM [facility] BASIC METABOLIC PANEL (non-fasting) Specimen Type: SERUM No comment entered. Ordering Provider: JEEVAN RILEY Report Released Date/Time: Jul 16, 2024 02:39 PM Reporting Lab: [address] [address] Performing Lab: [address] [address] UREA NITROGEN 16 mg/dL 7-25 GLUCOSE 87 mg/dL 65-100 SODIUM 137 mmol/L 135-145 POTASSIUM 4.6 mmol/L 3.5-5.0 CHLORIDE 97 mmol/L L 100-110 CO2 27 meq/L 20-30 CREATININE, Serum 0.89 mg/dL 0.50-1.40 eGFR(CKD-EPI 2020) >90 mL/min >60 Sep 06, 2024 09:51 AM [facility] LIPID PANEL, NON FASTING Specimen Type: SERUM No comment entered. Ordering Provider: JANET LENTZ Report Released Date/Time: Sep 01, 2024 12:06 PM Reporting Lab: [facility] [address] [facility] [address] Performing Lab: [address] [address] CHOLESTEROL 154 mg/dL TRIGLYCERIDE 71 mg/dL 0-150 LDL calculated 67 mg/dL 0-129 CHOL/HDL 2.1 HDL CHOLESTEROL 73 mg/dL H 40-60 Sep 06, 2024 09:51 AM [facility] LIVER FUNCTION Specimen Type: SERUM No comment entered. Ordering Provider: JANET LENTZ Report Released Date/Time: Sep 01, 2024 12:06 PM Reporting Lab: [address] [address] Performing Lab: [address] [address] PROTEIN,TOTAL 7.1 g/dL 6.0-8.3 ALBUMIN 3.9 g/dL 3.5-5.0 ALKALINE PHOSPHATASE 116 U/L 40-150 AST 38 U/L H 5-34 ALT 29 U/L BILIRUBIN, TOTAL 1.2 mg/dL 0.2-1.2 BILIRUBIN, DIRECT 0.6 mg/dL H 0-0.5 Sep 06, 2024 09:51 AM [facility] CBC Specimen Type: BLOOD No comment entered. Ordering Provider: JANET LENTZ Report Released Date/Time: Sep 01, 2024 12:06 PM Reporting Lab: [address] [address] Performing Lab: [address] [address] WBC 7.38 10*3/uL 4.50-11.00 RBC 5.30 10*6/uL 4.23-5.66 HGB 17.9 g/dL H 12.8-17 HCT 49.7 39.2-50.4 MCV 93.8 fL 82-99 MCHC 36.0 g/dL H 30.8-35.1 PLT 150 10*3/uL 140-360 RDW-CV 12.8 12.0-16.0 MCH 33.8 pg H 26.2-32.6 Vital Signs: All taken on the encounter date This section contains inpatient and outpatient Vital Signs collected on the date of the Encounter. Date/Time Temperature Pulse Blood Pressure Respiratory Rate SP02 Pain Height Weight Body Mass Index Source Sep 14, 2024 08:51 AM 130/80 [facility] [place] [facility] Sep 14, 2024 07:53 AM 98.3 9 148/79 20 90 0 68 201 31 [facility] [place] [facility] Immunizations: All administered on the encounter date [...] AM VA-TOBACCO USE ОЛЕГ RY DAY CIGARETTES [place] [facility] [place] [facility] Tobacco Use History This section includes a history of the smoking, or tobacco-related health factors, that were collected on or before the date of the Encounter. The data comes from the [place] facility where the Encounter took place. Date/Time Smoking Status/Tobacco Use Comment F acility Sep 14, 2024 08:00 AM VA-TOBACCO SCREEN FOLLOW-UP [facility] [place] [facility] Sep 14, 2024 08:00 AM VA-TOBACCO USE ADVICE [facility] [place] [facility] Sep 14, 2024 08:00 AM VA-TOBACCO USE TALENT SCOUT NO [facility] [place] [facility] Sep 14, 2024 08:00 AM VA-TOBACCO USE ОЛЕГ RY DAY CIGARETTES [place] [facility] [place] [facility] Sep 14, 2024 08:00 AM VA-TOBACCO USE MED NO [facility] [place] [facility] Sep 04, 2023 01:14 PM VA-TOBACCO USE 30 YEARS OR MORE [facility] [place] [facility] Sep 04, 2023 01:14 PM VA-TOBACCO USE ADVICE [facility] [place] [facility] Sep 04, 2023 01:14 PM VA-TOBACCO USE TALENT SCOUT NO [facility] [place] [facility] Sep 04, 2023 01:14 PM VA-TOBACCO USE MED NO [facility] [place] [facility] Sep 04, 2023 01:14 PM VA-TOBACCO USE WI 30 MIN OF WAKEUP [facility] [place] [facility] Sep 04, 2023 01:14 PM VA-TOBACCO USER EVERY DAY [facility] [place] [facility] Oct 01, 2022 09:45 AM VA-TOBACCO DOESNT USE WI 30 MIN WAKEUP [facility] [place] [facility] Oct 01, 2022 09:45 AM VA-TOBACCO USE 30 YEARS OR MORE [facility] [place] [facility] Oct 01, 2022 09:45 AM VA-TOBACCO USE ADVICE [facility] [place] [facility] Oct 01, 2022 09:45 AM VA-TOBACCO USE TALENT SCOUT NO [facility] [place] [facility] Oct 01, 2022 09:45 AM VA-TOBACCO USE MED NO [facility] [place] [facility] Oct 01, 2022 09:45 AM VA-TOBACCO USER EVERY DAY [facility] [place] [facility] Sep 07, 2021 10:30 AM VA-TOBACCO USE 30 YEARS OR MORE [facility] [place] [facility] Sep 07, 2021 10:30 AM VA-TOBACCO USE ADVICE [facility] [place] [facility] Sep 07, 2021 10:30 AM VA-TOBACCO USE TALENT SCOUT NO [facility] [place] [facility] Sep 07, 2021 10:30 AM VA-TOBACCO USE MED NO [facility] [place] [facility] Sep 07, 2021 10:30 AM VA-TOBACCO USE WI 30 MIN OF WAKEUP [facility] [place] [facility] Sep 07, 2021 10:30 AM VA-TOBACCO USER EVERY DAY [facility] [place] [facility] Jun 08, 2020 09:00 AM VA-TOBACCO USE 30 YEARS OR MORE [facility] [place] [facility] Jun 08, 2020 09:00 AM VA-TOBACCO USE ADVICE [facility] [place] [facility] Jun 08, 2020 09:00 AM VA-TOBACCO USE TALENT SCOUT NO [facility] [place] [facility] Jun 08, 2020 09:00 AM VA-TOBACCO USE MED NO [facility] [place] [facility] Jun 08, 2020 09:00 AM VA-TOBACCO USE WI 30 MIN OF WAKEUP [facility] [place] [facility] Jun 08, 2020 09:00 AM VA-TOBACCO USER EVERY DAY [facility] [place] [facility] Feb 01, 2019 02:27 PM VA-TOBACCO USE 30 YEARS OR MORE [facility] [place] [facility] Feb 01, 2019 02:27 PM VA-TOBACCO USE ADVICE [facility] [place] [facility] Feb 01, 2019 02:27 PM VA-TOBACCO USE TALENT SCOUT NO [facility] [place] [facility] Feb 01, 2019 02:27 PM VA-TOBACCO USE MED NO [facility] [place] [facility] Feb 01, 2019 02:27 PM VA-TOBACCO USE WI 30 MIN OF WAKEUP [facility] [place] [facility] Feb 01, 2019 02:27 PM VA-TOBACCO USER EVERY DAY [facility] [place] [facility] Apr 02, 2018 02:47 PM CURRENT SMOKER [facility] [place] [facility] Apr 02, 2018 02:47 PM V1-PT DECLINES REF TO TOBACCO CESS PRGM [facility] [place] [facility] Apr 02, 2018 02:47 PM V1-PT DECLINES TOB ACCO CESSATION MEDS [facility] [place] [facility] Apr 02, 2018 02:47 PM V1-PT THINKING ABO UT QUIT TOBACCO USE [facility] [place] [facility] Encounter Notes: All associated encounter notes [...] complaint: Patient is a 69 year old . HPI: Pleasant male here to follow up. [...] scan, ordered. I also advised consultation with vp product, he is in agreement. I strongly advised [...] 07:53)BMI: 30.6201 lb [91.17 kg] (09/14/2024 07:53) Jackson is alert and oriented X3 Neck: supple [...] treatment planning, education and counseling of the patient/family/healthcare account manager, placing orders, communicating with other health care providers, and documentation in the electronic health record Follow up visit in 4 mos. Initial Lung Cancer Screen (Provider): Chest CT within 12 months outside of this [place] that assesses pulmonary nodules. Patient is not [...] (local) and dispensed from another [place] or [place] facility (remote) as well as [...] or non-VA provider. /lolly/ Sherlyn Lentz DNP, INSTRUCTIONAL SERVICES LIBRARIAN-BC, CNL Primary Care Nurse Practitioner Signed: 09/14/2024 10:20 SHERLYN LENTZ [facility] [place] [facility] Sep 14, 2024 07:57 AM PREVENTIVE MEDICINE [...] types of tobacco. /lolly/ Alonso Mcqueen, Health Caramel Candy Maker Helper DIRT BIKE RACER,PRIMARY CARE Signed: 09/14/2024 07:59 09/14/2024 ADDENDUM STATUS: COMPLETED COVID-19 Immunization: Moderna Monovalent (Spikevax) Administered: COVID-19 (MODERNA), MRNA, LNP-S, PF, 50 MCG/0.5 ML (AGES 12+ YEARS) Date Administered: Sep 14, 2024 08:00 Series: Booster Air Dispatcher: [employer] Lot: [id number] Exp Date: March 05, 2025 [facility]: [phone] Admin Route/Site: INTRAMUSCULAR/RIGHT DELTOID Dosage: 0.5mL Vaccine Information Statement(s): COVID-19 MRNA VACCINE (12+ YRS) VIS Jul 22, 2024 ([place]) Order By: Policy Administered By: Dena Jade Vaccine administered without complications. /galina Jade MSN RN CNL Primary Care RN Signed: 09/14/2024 08:51 ALONSO MCQUEEN [facility]
--- OUTSIDE RECORDS SUMMARY | 2025-01-06 14:20 | XMS_ITS | Encounter Summary ---
Author Name [facility] [place] Address [address] [place] [id number] Care Team Providers Care Quality Nurse Name Role Phone SHERLYN BRADLEY Primary Care Provider [facility] Insurance Providers: All historical and current [...] PART B Apr 05, 2020 PART B [id number] MIGUELITOOCCO FRANKLINNDER PATIENT MEDICARE (WNR) MEDICARE (M) PART A Mar 06, 2019 PART A [id number] NIKOLEDEEJAYMary JoCOCO ANDRIA PATIENT Selected Encounter [...] PRIMARY Age-related osteoporosis w/o current pathological fracture JEEVAN RILEY [facility] [place] [facility] Jan 21, 2024 12:26 PM SECONDARY Benign neoplasm of pituitary gland RILEYJEEVAN [facility] Jan 21, 2024 12:26 PM SECONDARY Hypothyroidism, unspecified ROSEMARYRHONDAJEEVAN [facility] Plan of Treatment: Future Appointments (+ 6 months) and Future Tests (+/- 45 days) The Plan of Treatment section includes future care activities for the patient from all [place] treatmentfacilities. This section includes future appointments and [...] 12, 2024 08:30 AM AMBULATORY - [facility] NTRL TRN [facility] Apr 01, 2024 09:00 AM [facility] Jul 22, 2024 08:00 AM AM[facility]UL[facility] - [facility] Lab Results: +/- 30 days [...] Range Comment Jan 21, 2024 09:04 AM [facility] THYROID T4 FREE(FT4) (WROX) Specimen Type: SERUM Comment: Slightly hemolyzed. Some results may be affected. Ordering Provider: JEEVAN RILEY Report Released Date/Time: Dec 23, 2023 02:52 PM Reporting Lab: [facility] [address] [facility] [address] Performing Lab: [facility] [address] [facility] [address] THYROID T4 FREE(FT4) (WROX) 1.24 ng/dL 0.6-1.6 Jan 21, 2024 09:04 AM [facility] TSH Specimen Type: SERUM No comment entered. Ordering Provider: JEEVAN RILEY Report Released Date/Time: Dec 23, 2023 02:52 PM Reporting Lab: [facility] [address] [facility] [address] Performing Lab: [facility] [address] [facility] [address] TSH 0.55 u[IU]/mL 0.35-5.00 Jan 21, 2024 09:04 AM [facility] MICROALBUMIN CREATININE RATIO PANEL Specimen Type: URINE No comment entered. Ordering Provider: JEEVAN RILEY Report Released Date/Time: Jan 21, 2024 08:56 AM Reporting Lab: [facility] [address] [facility] [address] Performing Lab: [address] [address] MICROALBUMIN/C REATININE RATIO 15.6 mg/g 0-29.9 MICROALBUMIN,Q UANTITATIVE 1.8 mg/dL RR UNAVAIL CREATININE URINE 115.12 mg/dL Jan 21, 2024 09:04 AM [facility] HEMOGLOBIN A1C PANEL Specimen Type: [...] Jan 21, 2024 08:56 AM Reporting Lab: [facility] [address] [facility] [phone] Performing Lab: [address] [address] HEMOGLOBIN A1C 5.3 4.0-5.6 Jan 21, 2024 09:04 AM [facility] BASIC METABOLIC PANEL (fasting) Specimen Type: SERUM No comment entered. Ordering Provider: JEEVAN RILEY Report Released Date/Time: Jan 21, 2024 08:56 AM Reporting Lab: [facility] [address] [facility] [address] Performing Lab: [facility] [address] [facility] [address] UREA NITROGEN 16 mg/dL 7-25 GLUCOSE 86 [...] 102 160/80 20 93 0 199 30 [facility] Social History: Smoking Status (Most current) and [...] 2023 01:14 PM VA-TOBACCO USER EVERY DAY [facility] Tobacco Use History This section includes a history of the smoking, or tobacco-related health factors, that were collected on or before the date of the Encounter. The data comes from the [place] facility where the Encounter took place. Date/Time Smoking Status/Tobacco Use Comment F acility Sep 04, 2023 01:14 PM VA-TOBACCO USE ADVICE [facility] Sep 04, 2023 01:14 PM VA-TOBACCO USE PRINTED CIRCUIT BOARDS BEVELER NO [place] [facility]TRL [place] [facility] Sep 04, 2023 01:14 PM VA-TOBACCO USE MED NO [facility] Sep 04, 2023 01:14 PM VA-TOBACCO USE WI 30 MIN OF WAKEUP [place] [facility] [place] [facility] Sep 04, 2023 01:14 PM VA-TOBACCO USER EVERY DAY [facility] [facility] Oct 01, 2022 09:45 AM VA-TOBACCO DOESNT USE WI 30 MIN WAKEUP [facility] [place] [facility] Oct 01, 2022 09:45 AM VA-TOBACCO USE 30 YEARS OR MORE [facility] [place] [facility] Oct 01, 2022 09:45 AM VA-TOBACCO USE ADVICE [place] [facility] [place] [facility] Oct 01, 2022 09:45 AM VA-TOBACCO USE PRINTED CIRCUIT BOARDS BEVELER NO [facility] [place] [facility] Oct 01, 2022 09:45 AM VA-TOBACCO USE MED NO VA [facility] [place] [facility] Oct 01, 2022 09:45 AM VA-TOBACCO USER EVERY DAY [facility] [place] [facility] Sep 07, 2021 10:30 AM VA-TOBACCO USE 30 YEARS OR MORE [facility] [place] [facility] Sep 07, 2021 10:30 AM VA-TOBACCO USE ADVICE VA [facility] [place] [facility] Sep 07, 2021 10:30 AM VA-TOBACCO USE PRINTED CIRCUIT BOARDS BEVELER NO [facility] [place] [facility] Sep 07, 2021 10:30 AM VA-TOBACCO USE MED NO VA [facility] [facility] Sep 07, 2021 10:30 AM VA-TOBACCO USE WI 30 MIN OF WAKEUP VA [facility] [place] [facility] Sep 07, 2021 10:30 AM VA-TOBACCO USER EVERY DAY VA [facility] [place] [facility] Jun 08, 2020 09:00 AM VA-TOBACCO USE 30 YEARS OR MORE [facility] [facility] Jun 08, 2020 09:00 AM VA-TOBACCO USE ADVICE VA [facility]L [facility] [place] [facility] Jun 08, 2020 09:00 AM VA-TOBACCO USE PRINTED CIRCUIT BOARDS BEVELER NO [facility] [place] [facility] Jun 08, 2020 09:00 AM VA-TOBACCO USE MED NO VA CNTRL [facility] [place] [facility] Jun 08, 2020 09:00 AM VA-TOBACCO USE WI 30 MIN OF WAKEUP [place] CNTRL [facility] [place] [facility] Jun 08, 2020 09:00 AM VA-TOBACCO USER EVERY DAY [place] CNTRL [facility] Feb 01, 2019 02:27 PM VA-TOBACCO USE 30 YEARS OR MORE [place] CN[facility]L [facility] Feb 01, 2019 02:27 PM VA-TOBACCO USE ADVICE [place] CNTRL WSTRN [facility] Feb 01, 2019 02:27 PM VA-TOBACCO USE PRINTED CIRCUIT BOARDS BEVELER NO [place] CNTRL [facility] Feb 01, 2019 02:27 PM VA-TOBACCO USE MED NO [place] CNTRL [facility] Feb 01, 2019 02:27 PM VA-TOBACCO USE WI 30 MIN OF WAKEUP [place] CNTRL [facility] Feb 01, 2019 02:27 PM VA-TOBACCO USER EVERY DAY [place] CNTRL WSTRN [facility] Apr 02, 2018 02:47 PM CURRENT SMOKER [place] C [facility]L [facility] Apr 02, 2018 02:47 PM V1-PT DECLINES REF TO TOBACCO CESS PRGM [place] CNTRL WSTRN [facility] Apr 02, 2018 02:47 PM V1-PT DECLINES TOB ACCO CESSATION MEDS [place] CNTR WSTRN [facility] Apr 02, 2018 02:47 PM V1-PT THINKING ABO UT QUIT TOBACCO USE [place] CNTRL [facility] Encounter Notes: All associated encounter notes [...] dairy in diet. He was seen by community care dental and four extractions are anticipated. [...] Diplopia 5. Hypothyroid 6. Polyp Colon ([facility] [id number]) 7. Aneurysm of thoracic aorta 8. HTN - Hypertension ([facility] [id number]) 9. Hyperlipidemia ([facility] [id number]) 10. Chronic obstructive lung disease 11. Tobacco user 12. Elevated blood-pressure reading without diagnosis of hypertension 13. Dyspnea ([facility] [id number]) 14. Diagnosis or Condition Deferred on Delta I Active Outpatient Medications (including Supplies): Active [...] this VA (local) and dispensed from another VA or [facility] facility (remote) as well as [...] Remote Allergy/ADR Data available for this patient [place] CN[facility] [place] [facility] HCTZ HYDROCHLOROTHIAZIDE Med Recon NoGlossary (Tool #1) INCLUDED IN THIS LIST: Alphabetical list of active outpatient prescriptions dispensed from this [place] (local) and dispensed from another [place] or [facility] facility (remote) as well as inpatient orders (local pending and active), local clinic medications, locally documented non-VA medications, and local prescriptions that have or been discontinued in the past 90 days. Non-VA Meds Last Documented On: Data not found NOTE The display of VA prescriptions dispensed from another [place] or [facility] facility (remote) is limited to active outpatient prescription entries matched to National Drug File at the originating site and may not include some items such as investigational drugs, compounds, etc. NOT INCLUDED IN THIS LIST: Medications self-entered by the patient into personal health records (i.e. [employer]) are NOT included in this list. Non-VA medications documented outside this [place], remote inpatient orders (regardless of status) and remote clinic medications are NOT included in this list. The patient and provider must always discuss medications the patient is taking, regardless of where the medication was dispensed or obtained. OUTPT ALBUTEROL 90MCG (CFC-F) 200D ORAL INHL (Status = ) INHALE 2 PUFFS BY MOUTH EVERY 4 HOURS NEEDED Rx# [id number] Last Released: 12/29/23 Qty/Days Supply: 11/04 Rx Expiration Date: 01/10/24 Refills Remainin OUTPT ATORVASTATIN CALCIUM 40MG TAB (Status = Active) TAKE ONE-HALF TABLET BY MOUTH ONCE DAILY FOR CHOLESTEROL Rx# [id number] Last Released: 12/29/23 Qty/Days Supply: Rx Expiration Date: 09/11/24 Refills Remainin OUTPT CALCIUM 200MG (CA CITRATE-950MG) TAB (Status = Active) TAKE THREE TABLETS BY MOUTH TWICE DAILY Rx# [id number] Last Released: 07/02/23 Qty/Days Supply: Rx Expiration Date: 02/16/24 Refills Remainin Indication: FOR OSTEOPOROSIS OUTPT CHOLECALCIF 25MCG (D3-1,000UNIT) TAB (Status = Active) TAKE ONE TABLET BY MOUTH ONCE DAILY FOR VITAMIN SUPPLEMENTATION Rx# [id number] Last Released: 12/04/23 Qty/Days Supply: Rx Expiration Date: 04/26/24 Refills Remainin Indication: FOR VITAMIN D DEFICIENCY OUTPT FLUTICAS 250/SALMETEROL 50 INHL DISK 60 (Status = Active) INHALE 1 PUFF BY MOUTH TWICE DAILY - RINSE MOUTH AFTER USE REPLACES SYMBICORT (BUDESONIDE/FORMOTEROL) Rx# [id number] Last Released: 12/29/23 Qty/Days Supply: 11/04 Rx Expiration Date: 12/04/24 Refills Remainin OUTPT LEVOTHYROXINE NA (SYNTHROID) 88MCG TAB (Status = Discontinued) TAKE ONE TABLET BY MOUTH EVERY MORNING 30 MINUTES BEFORE BREAKFAST TAKE ON AN EMPTY STOMACH WITH A FULL GLASS OF WATER Rx# [id number] Last Released: 10/02/23 Qty/Days Supply: Rx Expiration Date: 11/05/23 Refills Remainin Indication: FOR THYROID OUTPT LEVOTHYROXINE NA (SYNTHROID) 88MCG TAB (Status = Active) TAKE ONE TABLET BY MOUTH EVERY MORNING 30 MINUTES BEFORE BREAKFAST TAKE ON AN EMPTY STOMACH WITH A FULL GLASS OF WATER Rx# [id number] Last Released: 01/01/24 Qty/Days Supply: Rx Expiration Date: 12/29/24 Refills Remainin Indication: FOR THYROID OUTPT LISINOPRIL 30MG TAB (Status = Active) TAKE ONE TABLET BY MOUTH ONCE DAILY TO CONTROL BLOOD PRESSURE NOTE NEW TABLET STRENGTH Rx# [id number] Last Released: 12/29/23 Qty/Days Supply: Rx Expiration Date: 09/11/24 Refills Remainin OUTPT TIOTROPIUM 2.5MCG/ACTUAT 60D ORAL INHL (Status = Active) INHALE 2 PUFFS BY MOUTH ONCE DAILY THIS REPLACES TIOTROPIUM HANDIHALER CAPSULES Rx# [id number] Last Released: 09/19/23 Qty/Days Supply: Rx Expiration Date: 09/11/24 Refills Remainin OUTPT TRIAMCINOLONE ACETONIDE 0.1% CREAM (Status = ) APPLY A THIN LAYER TOPICALLY TWICE DAILY FOR CONTACT DERMATITIS Rx# [id number] Last Released: 11/04/22 Qty/Days Supply: Rx Expiration Date: 11/05/23 Refills Remainin Indication: FOR CONTACT DERMATITIS SUPPLIES /galina RILEY MD STAFF PHYSICIAN Signed: 01/21/2024 12:26 01/21/2024 ADDENDUM STATUS: COMPLETED Hypothyroidism TFTs today. No temp intolerance, diarrhea, constipation, tremor or palpitatations. /galina RILEY MD STAFF PHYSICIAN Signed: 01/21/2024 12:27 JEEVAN RILEY CNTRL WSTRN [facility]
--- OUTSIDE RECORDS SUMMARY | 2025-01-06 14:20 | XMS_ITS ---
Author Name [facility] [place] Organization [facility] [place] Address [address] [place] [address] Care Team Providers Care Finish Production Manager Name Role Phone SHERLYN BRADLEY Primary [facility] Provider [facility] Insurance Providers: All historical and [...] PART B Apr 05, 2020 PART B [id number] NIKOLECOCO MOCK PATIENT MEDICARE (WNR) MEDICARE (M) PART A Mar 06, 2019 PART A [id number] NIKOLECOCO MOCK PATIENT Selected Encounter This section includes the information on record at OR for the Encounter. Date/Time Encounter Type Encounter Description Reason Provider Source Nov 26, 2024 11:28 AM [facility] OL DIG ASSMT&MGMT -20 CLINICAL PHARMACY ICD-10-CM J44.9 Chronic obstructive pulmonary disease, unspecified SOVEROW,BHUPENDRA Y A IHE Encounter Template Text not used by OR Assessments - Encounter Diagnoses This section includes the primary and secondary diagnoses documented for the Encounter. Date/Time Primary/Secondary Diagnosis Diagnosis Name Provider Source Nov 26, 2024 11:41 AM PRIMARY Chronic obstructive pulmonary disease, unspecified SOCARLOS,BHUPENDRA Y A [facility] Plan of Treatment: Future Appointments (+ 6 months) and Future Tests (+/- 45 days) The Plan of Treatment section includes future care activities for the patient [facility] [place] [facility] This section includes future appointments and future orders which are active, pending or scheduled. Future Appointments This section includes appointments that were scheduled to occur 6 months from the date of the Encounter, up to a maximum of 20 appointments. The data comes from all [place] treatment facilities. Appointment Date/Time Appointment Type Appointme nt Facility Name Jan 06, 2025 10:30 AM AMBULATORY - MEDICINE [facility] Jan 20, 2025 08:00 AM AMBULATORY - MEDICINE [facility] Jan 20, 2025 08:45 AM AMBULATORY - NONE [facility] Social History: Smoking Status (Most current) and Tobacco Use (All prior to encounter date) This section includes the most current, and the historical, smoking and tobacco- related health factors from the [place] facility where the Encounter took place. Current Smoking Status This section includes the most current smoking, or tobacco-related health factor, from the [place] facility where the Encounter took place. Date/Time Current Smoking Status Comment Facil ity Sep 14, 2024 08:00 AM VA-TOBACCO USE ОЛЕГ RY DAY CIGARETTES [facility] Tobacco Use History This section includes a history of the smoking, or tobacco-related health factors, that were collected on or before the date of the Encounter. The data comes from the [place] facility where the Encounter took place. 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 NO [facility] Sep 14, 2024 08:00 AM VA-TOBACCO USE ОЛЕГ RY DAY CIGARETTES [facility] Sep 14, 2024 08:00 AM VA-TOBACCO USE MED NO [facility] [place] [facility] Sep 04, 2023 01:14 PM VA-TOBACCO USE 30 YEARS OR MORE [facility] [place] [facility] Sep 04, 2023 01:14 PM VA-TOBACCO USE ADVICE [facility] [place] [facility] Sep 04, 2023 01:14 PM VA-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 USE 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 NO [facility] [place] [facility] Sep 04, 2023 01:14 PM VA-TOBACCO USE MED NO [facility] [place] [facility] Sep 04, 2023 01:14 PM VA-TOBACCO USE WI 30 MIN OF WAKEUP [facility] [place] [facility] Sep 04, 2023 01:14 PM VA-TOBACCO USER EVERY DAY [facility] [place] [facility] Oct 01, 2022 09:45 AM VA-TOBACCO DOESNT USE WI 30 MIN WAKEUP [facility] [place] [facility] Oct 01, 2022 09:45 AM VA-TOBACCO USE 30 YEARS OR MORE [facility] [place] [facility] Oct 01, 2022 09:45 AM VA-TOBACCO USE ADVICE [facility] [place] [facility] Oct 01, 2022 09:45 AM VA-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 USE 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 NO [facility] [place] [facility] Oct 01, 2022 09:45 AM VA-TOBACCO USE MED NO [facility] [place] [facility] Oct 01, 2022 09:45 AM VA-TOBACCO USER EVERY DAY [facility] [place] [facility] Sep 07, 2021 10:30 AM VA-TOBACCO USE 30 YEARS OR MORE [facility] [place] [facility] Sep 07, 2021 10:30 AM VA-TOBACCO USE ADVICE [facility] [place] [facility] Sep 07, 2021 10:30 AM VA-TOBACCO USE 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 NO [facility] [place] [facility] Sep 07, 2021 10:30 AM VA-TOBACCO USE MED NO [facility] [place] [facility] Sep 07, 2021 10:30 AM VA-TOBACCO USE WI 30 MIN OF WAKEUP [facility] [place] [facility] Sep 07, 2021 10:30 AM VA-TOBACCO USER EVERY DAY [facility] [place] [facility] Jun 08, 2020 09:00 AM VA-TOBACCO USE 30 YEARS OR MORE [facility] [place] [facility] Jun 08, 2020 09:00 AM VA-TOBACCO USE ADVICE [facility] [place] [facility] Jun 08, 2020 09:00 AM VA-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 USE 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 NO [facility] [place] [facility] Jun 08, 2020 09:00 AM VA-TOBACCO USE MED NO [facility] [place] [facility] Jun 08, 2020 09:00 AM VA-TOBACCO USE WI 30 MIN OF WAKEUP [facility] [place] [facility] Jun 08, 2020 09:00 AM VA-TOBACCO USER EVERY DAY [facility] [place] [facility] Feb 01, 2019 02:27 PM VA-TOBACCO USE 30 YEARS OR MORE [facility] [place] [facility] Feb 01, 2019 02:27 PM VA-TOBACCO USE ADVICE [facility] [place] [facility] Feb 01, 2019 02:27 PM VA-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 USE 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 NO [facility] [place] [facility] Feb 01, 2019 02:27 PM VA-TOBACCO USE MED NO [facility] [place] [facility] Feb 01, 2019 02:27 PM VA-TOBACCO USE WI 30 MIN OF WAKEUP [facility] [place] [facility] Feb 01, 2019 02:27 PM VA-TOBACCO USER EVERY DAY [facility] [place] [facility] Apr 02, 2018 02:47 PM CURRENT SMOKER VA C NTRL [facility] [place] [facility] Apr 02, 2018 02:47 PM V1-PT DECLINES REF TO TOBACCO CESS PRGM [facility] [place] [facility] Apr 02, 2018 02:47 PM V1-PT DECLINES TOB ACCO CESSATION MEDS [facility] [place] [facility] Apr 02, 2018 02:47 PM V1-PT THINKING ABO UT QUIT TOBACCO USE [facility] [place] [facility] Encounter Notes: All associated encounter notes This section contains the clinical notes associated to the Encounter. Date/Time Encounter Note(s) Provider Source Nov 26, 2024 11:41 AM MEDICATION MGT CONSULT: LOCAL TITLE: CONSULT REPORT/NON FORMULARY PADR STANDARD TITLE: MEDICATION MGT CONSULT DATE OF NOTE: NOV 26, 2024@11:41 ENTRY DATE: NOV 26, 2024@11:41:24 AUTHOR: RORO SCHUMACHER COSIGNER: URGENCY: STATUS: COMPLETED The medical record has been reviewed with regard to this restricted drug request. This prior authorization drug request originated with a [facility] provider. Medication requested: REVEFENACIN 175MCG/3ML INHL SOLN 3ML Medication indication: Severe COPD Medical history relevant to this request: 69 y/o male followed by [facility] pulmonology. Recent 40+ pack-year smoker with severe [...] Spent: 5 minutes /lolly/ RORO SCHUMACHER PHARMD. [facility] Clinical Pharmacist Signed: 11/26/2024 11:47 Receipt Acknowledged By: 11/26/2024 12:23 /lolly/ SHERLYN FLEMING Plug Making Operator RORO SCHUMACHER [place] [facility] [place] [facility] Nov 26, 2024 11:28 AM MEDICATION MGT CONSULT: LOCAL TITLE: CONSULT REPORT/NON FORMULARY PADR STANDARD TITLE: MEDICATION MGT CONSULT DATE OF NOTE: NOV 26, 2024@11:28 ENTRY DATE: NOV 26, 2024@11:28:58 AUTHOR: RORO SCHUMACHER COSIGNER: URGENCY: STATUS: COMPLETED The medical record has been reviewed with regard to this restricted drug request. This prior authorization drug request originated with a [facility] provider. Medication requested: ENSIFENTRINE 3MG/2.5ML INHL SUSP AMP Medication indication: severe COPD Medical history relevant to this request: 69 y/o male followed by pulmonology. Recent 40+ pack-year smoker with severe COPD poorly controlled on inhaled bronchodilators. [place] recently denied acute exacerbations. Pulmonology believes sub [...] criteria must be met. [X]Provider is a OR or [facility] headrig sawyer or designated expert. [X]Moderate to severe COPD [...] of at least 2 on [employer] dyspnea scale, etc.) [?]Patient is unable to [...] spent: 15 minutes /lolly/ RORO SCHUMACHER PHARMD. [facility] Clinical Pharmacist Signed: 11/26/2024 11:41 Receipt Acknowledged By: 11/26/2024 12:18 /lolly/ SHERLYN RASMUSSEN Plug Making Operator RORO SCHUMACHER [place] CNTRL W[facility]
--- OUTSIDE RECORDS SUMMARY | 2025-01-06 14:20 | XMS_ITS | Continuity of Care Document ---
Author Name [facility] Organization [facility] Care Team Providers Care Clothes Ironer Name Role Phone [facility] Unavailable Unavailable Problems Combined list of problems [...] [facility] Diagnosis or Condition Deferred on [place] I Active Condition [facility] Diplopia Active Condition [facility] Dyspnea (SCT [id number]) Active Condition Jan 02, 2018 Entered By: JOHN APONTE Comment: likely COPD related to chronic smoking >40 yrs. cutting down from 5 cigars to 5 cigarettes [facility] Elevated blood-pressure reading without diagnosis of hypertension Active Condition [facility] HTN - Hypertension (SCT [id number]) Active Condition [facility] Hyperlipidemia (SCT [id number]) Active Condition Nov 06, 2018 Entered By: [...] [facility] Polyp Colon (SCT [id number]) Active Condition Jun 04, 2019 Entered By: [...] G RESPIR ATORY (INHAL ATION) ACTIVE 09/15/2025 [id number] SHERLYN BRADLEY 2024 3 [facility] ALBUTEROL 90MCG/ACTUA T (CFC-F) INHL,ORAL,8 .5GM DOSE COUNTER INHALE 2 PUFFS BY MOUTH EVERY 4 HOURS NEEDED FOR BREATHIN G RESPIR ATORY (INHAL ATION) DISCONT INUED 01/21/2025 [id number] 4 BERNRADINO NIELSEN 2023 3 [facility] ALBUTEROL 90MCG/ACTUA T (CFC-F) INHL,ORAL,8 .5GM DOSE COUNTER INHALE 2 PUFFS BY MOUTH EVERY 4 HOURS NEEDED RESPIR ATORY (INHAL ATION) DISCONT INUED 01/10/2024 [id number] 4 SHERLYN BRADLEY 2022 1 [facility] ALBUTEROL SO4 0.083% INHL,3ML INHALE 1 AMPULE IN NEBULIZE R EVERY 6 HOURS NEEDED FOR BREATHIN G RESPIR ATORY (INHAL ATION) ACTIVE 09/15/2025 [id number] SHERLYN BRADLEY 2023 120 [facility] ATORVASTATI N CA 40MG TAB TAKE ONE-HALF TABLET BY MOUTH ONCE DAILY FOR CHOLESTE ROL ORAL ACTIVE 09/15/2025 [id number] 4 SHERLYN BRADLEY 2023 45 [facility] ATORVASTATI N CA 40MG TAB TAKE ONE-HALF TABLET BY MOUTH ONCE DAILY FOR CHOLESTE ROL ORAL DISCONT INUED 09/11/2024 [id number] 4 SHERLYN BRADLEY 2022 45 [facility] CALCIUM 200MG (CA CITRATE-950 MG) TAB TAKE THREE TABLETS BY MOUTH TWICE DAILY ORAL DISCONT INUED 10/07/2024 [id number] ROSEMARYAL ICE 2023 540 [facility] CALCIUM 200MG (CA CITRATE-950 MG) TAB TAKE THREE TABLETS BY MOUTH TWICE DAILY ORAL 12/13/2024 [id number] 4 SHERLYN BRADLEY 2023 540 [facility] CHOLECALCIF UNA 25MCG (1,000UNIT) TAB TAKE ONE TABLET BY MOUTH ONCE DAILY FOR VITAMIN SUPPLEME NTATION ORAL DISCONT INUED 10/07/2024 [id number] RILEY,AL ICE 2023 90 [facility] CHOLECALCIF UNA 25MCG (1,000UNIT) TAB TAKE ONE TABLET BY MOUTH ONCE DAILY FOR VITAMIN SUPPLEME NTATION ORAL 12/13/2024 [id number] 4 SHERLYN BRADLEY 2023 90 [facility] [place] CHOLECALCIF UNA 25MCG (1,000UNIT) TAB TAKE ONE TABLET BY MOUTH ONCE DAILY FOR VITAMIN SUPPLEME NTATION ORAL 04/26/2024 [id number] RILEY,AL ICE 2022 90 [facility] DEMECLOCYCL INE HCL 150MG TAB TAKE ONE TABLET BY MOUTH TWICE DAILY FOR INFECTIO N ORAL ACTIVE 07/17/2025 [id number] 4 RILEY,AL ICE 2023 180 [facility] FLUTICASONE 250MCG/SALM ETEROL 50MCG INHL,ORAL,D ISKUS,60 INHALE 1 PUFF BY MOUTH TWICE DAILY - RINSE MOUTH AFTER USE REPLAC ES SYMBICOR T (BUDESON NAVID/FORM OTEROL)* * RESPIR ATORY (INHAL ATION) ACTIVE 09/15/2025 [id number] 5 SHERLYN BRADLEY 2023 1 [facility] FLUTICASONE 250MCG/SALM ETEROL 50MCG INHL,ORAL,D ISKUS,60 INHALE 1 PUFF BY MOUTH TWICE DAILY - RINSE MOUTH AFTER USE REPLAC ES SYMBICOR T (BUDESON NAVID/FORM OTEROL)* * RESPIR ATORY (INHAL ATION) DISCONT INUED 12/04/2024 [id number] 4 SHERLYN BRADLEY 2023 1 [facility] FUROSEMIDE 40MG TAB TAKE ONE TABLET BY MOUTH ONCE DAILY TO REMOVE FLUID/CO NTROL BLOOD PRESSURE ORAL ACTIVE 12/14/2025 [id number] 5 ASAD GUERRERO BEATRICE 2024 30 [facility] FUROSEMIDE 40MG TAB TAKE ONE TABLET BY MOUTH ONCE DAILY TO REMOVE FLUID/CO NTROL BLOOD PRESSURE ORAL DISCONT INUED 10/19/2025 [id number] 5 CESAR,AN BEATRICE 2024 30 [facility] LEVOTHYROXI NE NA 88MCG TAB (SYNTHROID) TAKE ONE TABLET BY MOUTH EVERY MORNING 30 MINUTES BEFORE BREAKFAS T TAKE ON AN EMPTY STOMACH WITH A FULL GLASS OF WATER ORAL ACTIVE 09/15/2025 [id number] 4 SHERLYN BRADLEY 2023 90 [facility] LEVOTHYROXI NE NA 88MCG TAB (SYNTHROID) TAKE ONE TABLET BY MOUTH EVERY MORNING 30 MINUTES BEFORE BREAKFAS T TAKE ON AN EMPTY STOMACH WITH A FULL GLASS OF WATER ORAL DISCONT INUED 12/29/2024 [id number] 4 SHERLYN BRADLEY 2023 90 [facility] LISINOPRIL 30MG TAB TAKE ONE TABLET BY MOUTH ONCE DAILY TO CONTROL BLOOD PRESSURE NOTE NEW TABLET STRENGTH ORAL ACTIVE 09/15/2025 [id number] 4 SHERLYN BRADLEY 2023 90 [facility] LISINOPRIL 30MG TAB TAKE ONE TABLET BY MOUTH ONCE DAILY TO CONTROL BLOOD PRESSURE NOTE NEW TABLET STRENGTH ORAL DISCONT INUED 09/11/2024 [id number] 4 SHERLYN BRADLEY 2022 90 [facility] NAPROXEN 500MG TAB TAKE ONE TABLET BY MOUTH EVERY 12 HOURS NEEDED TAKE WITH FOOD; FOR PAIN/INF LAMMATIO N/SWELLI NG ORAL ACTIVE 03/13/2025 [id number] SHERLYN BRADLEY 2023 60 [facility] OXYGEN MISCELLANEO US USE DIRECTED NOT APPLIC ABLE ACTIVE SHERLYN BRADLEY 2024 [facility] PREDNISONE 20MG TAB TAKE ONE TABLET BY MOUTH ONCE DAILY FOR ASTHMA ORAL 10/14/2024 [id number] 4 SHERLYN BRADLEY 2023 7 [facility] TIOTROPIUM 2.5MCG/ACTU AT INHL,ORAL,6 0D,4GM INHALE 2 PUFFS BY MOUTH ONCE DAILY THIS REPLACES TIOTROPI UM HANDIHAL ER CAPSULES RESPIR ATORY (INHAL ATION) ACTIVE 09/15/2025 [id number] 5 SHERLYN BRADLEY 2024 [address] [facility] TIOTROPIUM 2.5MCG/ACTU AT INHL,ORAL,6 0D,4GM INHALE 2 PUFFS BY MOUTH ONCE DAILY THIS REPLACES TIOTROPI UM HANDIHAL ER CAPSULES RESPIR ATORY (INHAL ATION) DISCONT INUED 09/11/2024 [id number] 4 SHERLYN BRADLEY 2022 3 [facility] Allergies, Adverse Reactions, Alerts Combined list of allergies from Department of Defense and Veterans Affairs facilities. It does not include entries that were removed or entered in error. Substance Category Reaction Severity Reaction type Status Date Reported Comments Source HCTZ HYDROCHLOROTH IAZIDE Propensity to adverse reactions to drug (finding) active 8 [facility] Immunizations Combined list of available immunizations from the Department of Defense and Veterans Affairs facilities. Immunization Series Date Given Administered By Site Reaction Lot Number CVX Code Drug Glass Carrier Status Comments Source COVID-19 (MODERNA), MRNA, LNP-S, PF, 50 MCG/0.5 ML (AGES 12+ YEARS) 2023 PADMINI BRAHSERA RIGHT DELTO ID [id number] 312 complet ed [facility] INFLUENZA, HIGH-DOSE, TRIVALENT, PF 2023 RADHA ZHANG LEFT DELTO ID [id number] A 135 complet ed [facility] PNEUMOCOCCAL CONJUGATE PCV20, POLYSACCHARID E [id number] CONJUGATE, ADJUVANT, PF 2023 ZANLIZBETHISIDROPADMINI VIVAS LAURA RIGHT DELTO ID [id number] 216 complet ed [facility] COVID-19 (MODERNA), MRNA, LNP-S, PF, 50 MCG/0.5 ML (AGES 12+ YEARS) 2022 ZANVETTOR,PADMINI LAURA LEFT DELTO ID [id number] 312 complet ed [facility] INFLUENZA, HIGH-DOSE, QUADRIVALENT 2022 ZANVETTOR,PADMINI LAURA RIGHT [place] ID [id number] 197 complet ed [facility] INFLUENZA VACCINE, QUADRIVALENT, ADJUVANTED 2021 ZAGRACIE,PADMINI LAURA RIGHT DELTO ID [id number] 205 complet ed [facility] INFLUENZA VACCINE, QUADRIVALENT, ADJUVANTED 2020 205 complet ed [facility] COVID-19 (MODERNA), MRNA, LNP-S, PF, 100 MCG OR 50 MCG DOSE 3 2020 207 complet ed [facility] COVID-19 (PFIZER), MRNA, LNP-S, PF, 30 MCG/0.3 ML DOSE 2 2020 208 complet ed PFR; [id number]; 1 [facility] COVID-19 (PFIZER), MRNA, LNP-S, PF, 30 MCG/0.3 ML DOSE 1 2020 208 complet ed PFR; [id number]; 1 [facility] ZOSTER RECOMBINANT 2 2019 187 complet ed [facility] INFLUENZA, TRIVALENT, ADJUVANTED 2019 168 complet ed [facility] [place] [facility] ZOSTER RECOMBINANT 1 2019 187 complet ed [facility] [place] [facility] INFLUENZA, INJECTABLE, QUADRIVALENT, PRESERVATIVE FREE 2018 150 complet ed Site: Left Deltoid [facility] PNEUMOCOCCAL CONJUGATE PCV 13 2018 133 complet ed [facility] [place] [facility] INFLUENZA, TRIVALENT, ADJUVANTED 2018 168 complet ed Site: Right Deltoid [facility] PNEUMOCOCCAL POLYSACCHARID E [id number] 2017 33 complet ed [facility] TDAP 2017 115 complet ed Site: Right Deltoid [facility] Results Combined list of [...] 2024 02:39 PM Reporting Lab: [facility] [address] [facility] [address] Performing Lab: [facility] [address] [address] [facility] BASIC METABOLIC PANEL (non-fast ing) GLUCOSE [MASS/VOLUM E] IN SERUM OR PLASMA 87 mg/dL 65 - 100 09/06 Specimen Type: SERUM No comment entered. Ordering Provider: JOSÉ RILEY Report Released Date/Time: Jul 16, 2024 02:39 PM Reporting Lab: [facility] [address] [facility] [address] Performing Lab: [facility] [address] [address] [facility] BASIC METABOLIC PANEL (non-fast ing) SODIUM [MOLES/VOLU ME] IN SERUM OR PLASMA 137 mmol/L 135 - 145 09/06 Specimen Type: SERUM No comment entered. Ordering Provider: JOSÉ RILEY Report Released Date/Time: Jul 16, 2024 02:39 PM Reporting Lab: [facility] [address] [address] Performing Lab: [facility] [address] [address] [facility] BASIC METABOLIC PANEL (non-fast ing) POTASSIUM [MOLES/VOLU ME] IN SERUM OR PLASMA 4.6 mmol/L 3.5 - 5.0 09/06 Specimen Type: SERUM No comment entered. Ordering Provider: JOSÉ RILEY Report Released Date/Time: Jul 16, 2024 02:39 PM Reporting Lab: [address] [address] Performing Lab: [address] [address] [facility] BASIC METABOLIC PANEL (non-fast ing) CHLORIDE [MOLES/VOLU ME] IN SERUM OR PLASMA 97 mmol/L 100 - 110 09/06 L Specimen Type: SERUM No comment entered. Ordering Provider: JOSÉ RILEY Report Released Date/Time: Jul 16, 2024 02:39 PM Reporting Lab: [address] [address] Performing Lab: [address] [address] [facility] BASIC METABOLIC PANEL (non-fast ing) CARBON DIOXIDE, TOTAL [MOLES/VOLU ME] IN SERUM OR PLASMA 27 meq/L 20 - 30 09/06 Specimen Type: SERUM No comment entered. Ordering Provider: JOSÉ RILEY Report Released Date/Time: Jul 16, 2024 02:39 PM Reporting Lab: [facility] [address] [facility] [address] Performing Lab: [address] [place] [address] [facility] BASIC METABOLIC PANEL (non-fast ing) CREATININE [MASS/VOLUM E] IN SERUM OR PLASMA 0.89 mg/dL 0.50 - 1.40 09/06 Specimen Type: SERUM No comment entered. Ordering Provider: JOSÉ RILEY Report Released Date/Time: Jul 16, 2024 02:39 PM Reporting Lab: [address] [address] Performing Lab: [address] [address] [facility] BASIC METABOLIC PANEL (non-fast ing) GLOMERULAR FILTRATION RATE/1.73 SQ M.PREDICTED [VOLUME RATE/AREA] IN SERUM, PLASMA OR BLOOD BY CREATININE- BASED FORMULA (CKD-EPI 2020) >90mL/ min 60 09/06 Specimen Type: SERUM No comment entered. Ordering Provider: JOSÉ RILEY Report Released Date/Time: Jul 16, 2024 02:39 PM Reporting Lab: [address] [address] Performing Lab: [address] [address] [facility] LIVER FUNCTION PROTEIN [MASS/VOLUM E] IN SERUM OR PLASMA 7.1 g/dL 6.0 - 8.3 09/06 Specimen Type: SERUM No comment entered. Ordering Provider: BETSY BRADLEY Report Released Date/Time: Sep 01, 2024 12:06 PM Reporting Lab: [address] [address] Performing Lab: [address] [address] [facility] LIVER FUNCTION ALBUMIN [MASS/VOLUM E] IN SERUM OR PLASMA 3.9 g/dL 3.5 - 5.0 09/06 Specimen Type: SERUM No comment entered. Ordering Provider: BETSY BRADLEY Report Released Date/Time: Sep 01, 2024 12:06 PM Reporting Lab: [facility] [address] [facility] [address] Performing Lab: [facility] [address] [facility] [address] [facility] LIVER FUNCTION ALKALINE PHOSPHATASE [ENZYMATIC ACTIVITY/VO LUME] IN SERUM OR PLASMA 116 U/L 40 - 150 09/06 Specimen Type: SERUM No comment entered. Ordering Provider: BETSY BRADLEY Report Released Date/Time: Sep 01, 2024 12:06 PM Reporting Lab: [facility] [address] [facility] [address] Performing Lab: [facility] [address] [facility] [address] [facility] LIVER FUNCTION ASPARTATE AMINOTRANSF ERASE [ENZYMATIC ACTIVITY/VO LUME] IN SERUM OR PLASMA 38 U/L 5 - 34 09/06 H Specimen Type: SERUM No comment entered. Ordering Provider: BETSY BRADLEY Report Released Date/Time: Sep 01, 2024 12:06 PM Reporting Lab: [facility] [address] [facility] [facility] [address] Performing Lab: [facility] [address] [facility] [address] [facility] [place] [facility] LIVER FUNCTION ALANINE AMINOTRANSF ERASE [ENZYMATIC ACTIVITY/VO LUME] IN SERUM OR PLASMA 29 U/L 09/06 Specimen Type: SERUM No comment entered. Ordering Provider: BETSY BRADLEY Report Released Date/Time: Sep 01, 2024 12:06 PM Reporting Lab: [facility] [address] [facility] [address] Performing Lab: [facility] [address] [facility] [address] [facility] LIVER FUNCTION BILIRUBIN.T OTAL [MASS/VOLUM E] IN SERUM OR PLASMA 1.2 mg/dL 0.2 - 1.2 09/06 Specimen Type: SERUM No comment entered. Ordering Provider: BETSY BRADLEY Report Released Date/Time: Sep 01, 2024 12:06 PM Reporting Lab: [facility] [place] [address] [address] Performing Lab: [facility] [place] [address] [address] [facility] LIVER FUNCTION BILIRUBIN.D IRECT [MASS/VOLUM E] IN SERUM OR PLASMA 0.6 mg/dL 0 - 0.5 09/06 H Specimen Type: SERUM No comment entered. Ordering Provider: BETSY BRADLEY Report Released Date/Time: Sep 01, 2024 12:06 PM Reporting Lab: [facility] [place] [address] [address] Performing Lab: [facility] [address] [address] [facility] [place] [facility] CBC LEUKOCYTES [#/VOLUME] IN BLOOD BY AUTOMATED COUNT 7.38 10*3/u L 4.50 - 11.00 09/06 Specimen Type: BLOOD No comment entered. Ordering Provider: BETSY BRADLEY Report Released Date/Time: Sep 01, 2024 12:06 PM Reporting Lab: [facility] [place] [address] [address] Performing Lab: [facility] [place] [address] [address] [facility] [place] [facility] CBC ERYTHROCYTE S [#/VOLUME] IN BLOOD BY AUTOMATED COUNT 5.30 10*6/u L 4.23 - 5.66 09/06 Specimen Type: BLOOD No comment entered. Ordering Provider: BETSY BRADLEY Report Released Date/Time: Sep 01, 2024 12:06 PM Reporting Lab: [facility] [place] [address] [address] Performing Lab: [facility] [place] [address] [address] [facility] [place] [facility] CBC HEMOGLOBIN [MASS/VOLUM E] IN BLOOD 17.9 g/dL 12.8 - 17 09/06 H Specimen Type: BLOOD No comment entered. Ordering Provider: BETSY BRADLEY Report Released Date/Time: Sep 01, 2024 12:06 PM Reporting Lab: [facility] [address] [facility] [address] Performing Lab: [facility] [address] [facility] [facility] [address] [facility] [place] [facility] CBC HEMATOCRIT [VOLUME FRACTION] OF BLOOD BY AUTOMATED COUNT 49.7 39.2 - 50.4 09/06 Specimen Type: BLOOD No comment entered. Ordering Provider: BETSY BRADLEY Report Released Date/Time: Sep 01, 2024 12:06 PM Reporting Lab: [facility] [place] [address] [address] Performing Lab: [facility] [place] [facility] [address] [facility] [address] [facility] [place] [facility] CBC MCV [ENTITIC VOLUME] BY AUTOMATED COUNT 93.8 fL 82 - 99 09/06 Specimen Type: BLOOD No comment entered. Ordering Provider: BETSY BRADLEY Report Released Date/Time: Sep 01, 2024 12:06 PM Reporting Lab: [facility] [place] [address] [address] Performing Lab[facility] [place] [facility] [address] [facility] [address] [facility] [place] [facility] CBC MCHC [MASS/VOLUM E] BY AUTOMATED COUNT 36.0 g/dL 30.8 - 35.1 09/06 H Specimen Type: BLOOD No comment entered. Ordering Provider: BETSY BRADLEY Report Released Date/Time: Sep 01, 2024 12:06 PM Reporting Lab: [facility] [place] [address] [address] Performing Lab: [facility] [place] [facility] [address] [facility] [address] [facility] [place] [facility] CBC PLATELETS [#/VOLUME] IN BLOOD BY AUTOMATED COUNT 150 10*3/u L 140 - 360 09/06 Specimen Type: BLOOD No comment entered. Ordering Provider: BETSY BRADLEY Report Released Date/Time: Sep 01, 2024 12:06 PM Reporting Lab: [facility] [address] [facility] [address] Performing Lab: [facility] [address] [facility] [address] [facility] [place] [facility] CBC ERYTHROCYTE DISTRIBUTIO N WIDTH [RATIO] BY AUTOMATED COUNT 12.8 12.0 - 16.0 09/06 Specimen Type: BLOOD No comment entered. Ordering Provider: BETSY BRADLEY Report Released Date/Time: Sep 01, 2024 12:06 PM Reporting Lab: [facility] [place] [facility] [address] [facility] [address] Performing Lab: [facility] [place] [facility] [address] [facility] [address] [facility] [place] [facility] CBC MCH [ENTITIC MASS] BY AUTOMATED COUNT 33.8 pg 26.2 - 32.6 09/06 H Specimen Type: BLOOD No comment entered. Ordering Provider: BETSY BRADLEY Report Released Date/Time: Sep 01, 2024 12:06 PM Reporting Lab: [facility] [place] [facility] [address] [facility] [address] Performing Lab: [facility] [place] [facility] [address] [facility] [address] [facility] [place] [facility] LIPID PANEL, NON FASTING CHOLESTEROL [MASS/VOLUM E] IN SERUM OR PLASMA 154 mg/dL 09/06 Specimen Type: SERUM No comment entered. Ordering Provider: BETSY BRADLEY Report Released Date/Time: Sep 01, 2024 12:06 PM Reporting Lab: [facility] [place] [facility] [address] [facility] [address] Performing Lab: [facility] [address] [facility] [address] [facility]N [facility]ITALUSE [facility] LIPID PANEL, NON FASTING TRIGLYCERID E [MASS/VOLUM E] IN SERUM OR PLASMA 71 mg/dL 0 - 150 09/06 Specimen Type: SERUM No comment entered. Ordering Provider: BETSY BRADLEY Report Released Date/Time: Sep 01, 2024 12:06 PM Reporting Lab: [facility]ITALTR[facility]ITALUSE[facility] [address] [facility] [address] Performing Lab: [facility] HOSPITALN [address] [address] [facility] LIPID PANEL, NON FASTING CHOLESTEROL IN LDL [MASS/VOLUM E] IN SERUM OR PLASMA BY CALCULATION 67 mg/dL 0 - 129 09/06 Specimen Type: SERUM No comment entered. Ordering Provider: BETSY BRADLEY Report Released Date/Time: Sep 01, 2024 12:06 PM Reporting Lab: [facility]PITALN [facility]ITALUSE[facility] [address] [facility] [address] Performing Lab: [facility] HOSPITALN [facility] HOSPITALUSE[address] [address] [facility] LIPID PANEL, NON FASTING CHOLESTEROL .TOTAL/CHOL ESTEROL IN HDL [MASS RATIO] IN SERUM OR PLASMA 2.1 09/06 Specimen Type: SERUM No comment entered. Ordering Provider: BETSY BRADLEY Report Released Date/Time: Sep 01, 2024 12:06 PM Reporting Lab: [facility]PITALTRN [facility]ITALUSE[facility] [address] [facility] [address] Performing Lab: [facility]ITALR[facility] HOSPITALN [facility]ITALUSE[facility] [address] [facility] [address] [facility]ITALUSE [facility] LIPID PANEL, NON FASTING CHOLESTEROL IN HDL [MASS/VOLUM E] IN SERUM OR PLASMA 73 mg/dL 40 - 60 09/06 H Specimen Type: SERUM No comment entered. Ordering Provider: BETSY BRADLEY Report Released Date/Time: Sep 01, 2024 12:06 PM Reporting Lab: [facility] [place] [facility] [address] [facility] [address] Performing Lab: [place] [facility] [facility] [address] [facility] [address] [place] [facility] [facility] COPEPTIN COPEPTIN 7.3 07/14 Specimen Type: SERUM Comment: REFERENCE RANGE: <= 13.7 pmol/L This test was developed and its analytical performance characteris tics have been determined by [employer] . It has not been cleared or approved by FDA. This assay has been validated pursuant to the CLIA regulations and is used for clinical purposes. Test performed by [employer] [address] [address] Phone: Senior Supply Chain Analyst: Estela Barlow MD,PHD,PATSY Test Reported by [facility], [employer] [facility][1], [address] [place] [address] Seamus Joseph M.D., Ph.D., Director of Laboratorie s , CLIA [id number] TEST PERFORMED AT: , Ordering Provider: JOSÉ RILEY Report Released Date/Time: Jul 13, 2024 09:00 AM Reporting Lab: [place] [facility] [place] [facility] [address] [facility] [address] Performing Lab: [place] [facility] [place] [facility] [address] [address] [place] [facility] [place] [facility] OSMOLALIT Y (SERUM) OSMOLALITY OF SERUM OR PLASMA 267 280 - 300 07/14 L Specimen Type: SERUM Comment: Manually entered by: RTO Ordering Provider: JOSÉ RILEY Report Released Date/Time: Jul 13, 2024 09:00 AM Reporting Lab: [place] [facility] [place] [facility] [address] [facility] [address] Performing Lab: [place] [facility] [place] [facility] [address] [facility] [address] [place] [facility] [facility] OSMOLALIT Y (URINE) OSMOLALITY OF URINE 354 300 - 1000 07/14 Specimen Type: URINE Comment: Manually entered by: RTO Ordering Provider: JOSÉ RILEY Report Released Date/Time: Jul 13, 2024 09:00 AM Reporting Lab: [facility] [place] [facility] [address] [facility] [address] Performing Lab: [facility] [address] [facility] [address] [facility] SODIUM RANDOM URINE SODIUM, URINE 53 mmol/L 20 - 400 07/14 Specimen Type: URINE No comment entered. Ordering Provider: JOSÉ RILEY Report Released Date/Time: Jul 13, 2024 09:00 AM Reporting Lab: [facility] [address] [facility] [address] Performing Lab: [facility] [address] [facility] [address] [facility] BASIC METABOLIC PANEL (non-fast ing) UREA NITROGEN [MASS/VOLUM E] IN SERUM OR PLASMA 15 mg/dL 7 - 25 07/14 Specimen Type: SERUM No comment entered. Ordering Provider: JOSÉ RILEY Report Released Date/Time: Jul 13, 2024 09:00 AM Reporting Lab: [facility] [address] [facility] [address] Performing Lab: [facility] TRN [facility] [address] [facility] [address] [facility]ITALRH[facility]PITALTRN [facility]OSPITALUSE [facility] BASIC METABOLIC PANEL (non-fast ing) GLUCOSE [MASS/VOLUM E] IN SERUM OR PLASMA 95 mg/dL 65 - 100 07/14 Specimen Type: SERUM No comment entered. Ordering Provider: JOSÉ RILEY Report Released Date/Time: Jul 13, 2024 09:00 AM Reporting Lab: [facility] [place] [facility] [address] [facility] [address] Performing Lab: [facility] WSTRN [facility]ITALUSE[facility] [address] [facility] [address] [facility] BASIC METABOLIC PANEL (non-fast ing) SODIUM [MOLES/VOLU ME] IN SERUM OR PLASMA 128 mmol/L 135 - 145 07/14 L Specimen Type: SERUM No comment entered. Ordering Provider: JOSÉ RILEY Report Released Date/Time: Jul 13, 2024 09:00 AM Reporting Lab: [facility] [address] [facility] [address] Performing Lab: [facility] [address] [facility] [address] [facility] BASIC METABOLIC PANEL (non-fast ing) POTASSIUM [MOLES/VOLU ME] IN SERUM OR PLASMA 4.9 mmol/L 3.5 - 5.0 07/14 Specimen Type: SERUM No comment entered. Ordering Provider: JOSÉ RILEY Report Released Date/Time: Jul 13, 2024 09:00 AM Reporting Lab: [address] [address] Performing Lab: [address] [address] [facility] BASIC METABOLIC PANEL (non-fast ing) CHLORIDE [MOLES/VOLU ME] IN SERUM OR PLASMA 88 mmol/L 100 - 110 07/14 L Specimen Type: SERUM No comment entered. Ordering Provider: JOSÉ RILEY Report Released Date/Time: Jul 13, 2024 09:00 AM Reporting Lab: [facility] [address] [facility] [address] Performing Lab: [facility] [address] [facility] [address] [facility] BASIC METABOLIC PANEL (non-fast ing) CARBON DIOXIDE, TOTAL [MOLES/VOLU ME] IN SERUM OR PLASMA 24 meq/L 20 - 30 07/14 Specimen Type: SERUM No comment entered. Ordering Provider: JOSÉ RILEY Report Released Date/Time: Jul 13, 2024 09:00 AM Reporting Lab: [facility] [address] [facility] [address] Performing Lab: [facility]ITALRH[facility]OSPITALTRN [facility]ITALUSE[facility] [address] [facility] [address] [facility] BASIC METABOLIC PANEL (non-fast ing) CREATININE [MASS/VOLUM E] IN SERUM OR PLASMA 0.91 mg/dL 0.50 - 1.40 07/14 Specimen Type: SERUM No comment entered. Ordering Provider: JOSÉ RILEY Report Released Date/Time: Jul 13, 2024 09:00 AM Reporting Lab: [facility]ITALR[facility]ITALN [facility] [address] [facility] [address] Performing Lab: [facility] [address] [facility] [address] [facility] BASIC METABOLIC PANEL (non-fast ing) GLOMERULAR FILTRATION RATE/1.73 SQ M.PREDICTED [VOLUME RATE/AREA] IN SERUM, PLASMA OR BLOOD BY CREATININE- BASED FORMULA (CKD-EPI 2020) 90 mL/min 60 07/14 Specimen Type: SERUM No comment entered. Ordering Provider: JOSÉ RILEY Report Released Date/Time: Jul 13, 2024 09:00 AM Reporting Lab: [facility] [address] [facility] [address] Performing Lab: [facility] [address] [facility] [address] [facility] THYROID T4 FREE(FT4) (WROX) THYROXINE (T4) FREE [MASS/VOLUM E] IN SERUM OR PLASMA 1.38 ng/dL 0.6 - 1.6 07/12 Specimen Type: SERUM No comment entered. Ordering Provider: JOSÉ RILEY Report Released Date/Time: Jul 09, 2024 10:34 AM Reporting Lab: [facility] [address] [facility] [address] Performing Lab: [facility] [address] [facility] [address] [facility] Vital Signs Combined list of inpatient [...] Disposition Source [facility] [place] [facility] Outpatient Encounter [id number] 09/04 [facility] [place] OFFICE O/P EST LOW 20-29 MIN [id number] Diagnos is: ICD-10- CM R91.1 Solitar y pulmona ry nodule Meseret BRADLEY 09/11 [facility] [place] [facility] Outpatient Encounter [id number] 10/04 [facility] [place] [facility] [place] [facility] OFFICE O/[place] 40 MIN [id number] Diagnos is: ICD-10- CM 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 RHONDA RILEY 10/23 [facility] [place] [facility] [place] [facility] Outpatient Encounter [id number] 10/25 [facility] [place] [facility] [place] [facility] Outpatient Encounter [id number] 11/04 [facility] [place] [facility] Outpatient Encounter [id number] Diagnos is: ICD-10- CM 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 SHIKHA SEVILLA 11/04 [facility] [place] Outpatient Encounter [id number] 11/18 [facility] En[facility] [id number] Diagnos is: ICD-10- CM 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 RHONDA RILEY 11/19 [facility] En[facility] [id number] [facility] [place] Encounter [id number] 12/28 [facility] [place] En[facility] [id number] 12/28 [facility] [place] En[facility] [id number] 12/29 [facility] [place] [place] [facility] OFFICE O/P EST MOD 30 MIN [id number] Diagnos is: ICD-10- CM 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 RHONDA RILEY 01/20 [facility] En[facility] [id number] 01/20 [facility] En[facility] [id number] 01/24 [facility] En[facility] [id number] 03/04 [facility] OFF[facility] O/P EST LOW 20 MIN [id number] Diagnos is: ICD-10- CM R91.1 Solitar y pulmona ry nodule Meseret BRADLEY 03/12 [facility] En[facility] [id number] 03/24 [facility] Encounter [id number] 04/01 [facility] [place] Encounter [id number] 07/13 [facility] Encounter [id number] Diagnos is: ICD-10- CM 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 RHONDA RILEY 07/13 [facility] En[facility] [id number] 07/16 [facility] OFF[facility] O/P EST MOD 30 MIN [id number] Diagnos is: ICD-10- CM 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 Diagnos is: ICD-10- CM J44.9 Chronic obstruc tive pulmona ry disease , unspeci fied Meseret BRADLEY J 09/14 [facility] En[facility] [id number] 09/14 [facility] HC PRO PHONE CALL 11-20 MIN [id number] Diagnos is: ICD-10- CM J44.9 Chronic obstruc tive pulmona ry disease , unspeci fied JARMOLOWIC Z,ITA 09/17 [facility] En[facility] [id number] [facility] Encounter [id number]/18 [facility] En[facility] [id number] 11/25 [facility] NQHP OL DIG ASSMT&MGMT 11-20 [id number] Diagnos is: ICD-10- CM J44.9 Chronic obstruc tive pulmona ry disease , unspeci fied SOVEROW,CH RISTY A 11/26 [facility] En[facility] [id number] 12/13 [facility] [place] Outpatient Encounter [id number] 12/27 [facility] [place] [facility] MTMS BY PHARM RECEIVING CLERK 15 MIN [id number] Diagnos is: ICD-10- CM J44.9 Chronic obstruc tive pulmona ry disease , unspeci fied RAY FRANCISCODI A 01[facility] Social History Combined list of available smoking, tobacco, and other social history from Department of Defense and Veterans Affairs facilities. Social History Type Response Date Comment Sourc e Tobacco smoking status NHIS ND-TOBACCO USE EVERY DAY CIGARETTES 09/14/2024 [facility] History of tobacco use ND-TOBACCO NEVER USED OTHER TYPE 09/14/2024 [facility] History of tobacco use ND-TOBACCO USER EVERY DAY 09/04/2023 [facility] History of tobacco use ND-TOBACCO USER EVERY DAY 10/01/2022 [facility] History of tobacco use VA-TOBACCO USER EVERY DAY 09/07/2021 [facility] [place] [facility] History of tobacco use VA-TOBACCO USER EVERY DAY 06/08/2020 [facility] History of tobacco use VA-TOBACCO USE BOILER TESTER NO 02/01/2019 [facility] History of tobacco use V1-PT DECLINES TOBACCO CESSATION MEDS 04/02/2018 [facility] Plan of Care List of future care activities from Department of Veterans Affairs facilities. Additional future care activities may be listed in the Assessment and Plan section. Date/Time Care Activity Care Activity Detail Facili ty 01/06/2025 AMBULATORY - MEDICINE AMBULATORY - [facility]
--- OUTSIDE RECORDS SUMMARY | 2025-01-06 14:20 | XMS_ITS | Encounter Summary ---
Author Name [facility] [place] Address [address] [place] [id number] Care Team Providers Care Manager Hospice Name Role Phone SHERLYN LENTZ Primary Care Provider [facility] [...] PART B Apr 05, 2020 PART B [id number] COCO FARLEY PATIENT MEDICARE (WNR) MEDICARE (M) PART A Mar 06, 2019 PART A [id number] COCO FARLEY PATIENT Selected Encounter This [...] nodule [facility]ADMINI JADE [facility] [place] [facility] Mar 12, 2024 08:17 AM SECONDARY Benign neoplasm of pituitary gland PADMINI JADEA [facility] [place] [facility] Mar 12, 2024 08:17 AM SECONDARY Chronic obstructive pulmonary disease, unspecified PADMINI JADEA [facility] [place] [facility] Mar 12, 2024 08:17 AM SECONDARY Elevated blood-pressure reading, w/o diagnosis of htn PADMINI JADE [facility] [place] [facility] Mar 12, 2024 08:17 AM SECONDARY Encounter for immunization PADMINI JADE [facility] [place] [facility] Mar 12, 2024 08:17 AM SECONDARY Essential (primary) hypertension PADMINI JADEA [facility] [place] [facility] Mar 12, 2024 08:17 AM SECONDARY Hyperlipidemia, unspecified PADMINI JADE [facility] [place] [facility] Mar 12, 2024 08:17 AM SECONDARY Tobacco use PADMINI JADEA [facility] [place] [facility] Plan of Treatment: Future Appointments (+ 6 months) and Future Tests (+/- 45 days) The Plan of Treatment section includes future care activities for the patient [facility] [place] [facility] This section includes future [...] AMBULATORY - NONE [place] [facility] [place] [facility] Jul 22, 2024 08:00 AM AMBULATORY - MEDICINE [place] [facility] [place] [facility] Lab Results: +/- 30 days [...] Range Comment Mar 12, 2024 07:31 AM [facility] LIPID PANEL, NON FASTING Specimen Type: SERUM No comment entered. Ordering Provider: JANET LENTZ Report Released Date/Time: February 26, 2024 08:16 AM Reporting Lab: [facility] [address] [facility] [address] Performing Lab: [facility] [address] [facility] [address] CHOLESTEROL 161 mg/dL TRIGLYCERIDE 73 mg/dL 0-150 LDL calculated 75 mg/dL 0-129 CHOL/HDL 2.3 HDL CHOLESTEROL 71 mg/dL H 40-60 Mar 12, 2024 07:31 AM [facility] CBC Specimen Type: BLOOD No comment entered. Ordering Provider: JANET LENTZ Report Released Date/Time: February 26, 2024 08:16 AM Reporting Lab: [facility] [address] [facility] [address] Performing Lab: [facility] [address] WBC 8.45 10*3/uL 4.50-11.00 RBC 5.21 10*6/uL 4.23-5.66 HGB 17.1 g/dL H 12.8-17 HCT 47.8 39.2-50.4 MCV 91.7 fL 82-99 MCHC 35.8 g/dL H 30.8-35.1 PLT 186 10*3/uL 140-360 RDW-CV 12.2 12.0-16.0 MCH 32.8 pg H 26.2-32.6 Mar 12, 2024 07:31 AM [facility] LIVER FUNCTION Specimen Type: SERUM No comment entered. Ordering Provider: JANET LENTZ Report Released Date/Time: February 26, 2024 08:16 AM Reporting Lab: [address] [address] Performing Lab: [facility] [address] PROTEIN,TOTAL 7.1 g/dL 6.0-8.3 ALBUMIN 4.4 g/dL 3.5-5.0 ALKALINE PHOSPHATASE 110 U/L 40-150 AST 48 U/L H 5-34 ALT 29 U/L BILIRUBIN, TOTAL 1.5 mg/dL H 0.2-1.2 BILIRUBIN, DIRECT 0.6 mg/dL H 0-0.5 Mar 12, 2024 07:31 AM [facility] [employer] Water CorporationMIMBRES MEMORIAL HOSPITALairpim [facility] FERRITIN Specimen Type: SERUM No comment entered. Ordering Provider: JANET LENTZ Report Released Date/Time: Mar 15, 2024 10:26 AM Reporting Lab: [address] [address] Performing Lab: [address] [address] FERRITIN 683 ng/mL H 20-300 Vital Signs: All taken on the encounter date This section contains inpatient and outpatient Vital Signs collected on the date of the Encounter. Date/Time Temperature Pulse Blood Pressure Respiratory Rate SP02 Pain Height Weight Body Mass Index Source Mar 12, 2024 07:59 AM 97.5 97 120/68 20 92 0 68 194 30 [facility] Immunizations: All administered on the encounter date This section contains immunizations associated to the Encounter. Immunization Series Date Issued Reaction Comments PNEUMOCOCCAL CONJUGATE PCV20 , POLYSACCHARIDE [id number] CONJUGATE, ADJUVANT, PF Mar 12, 2024 Social [...] 2023 01:14 PM VA-TOBACCO USER EVERY DAY [facility]GiftFA[facility] FAIRVIEWairpim [facility] Tobacco Use History This section includes a history of the smoking, or tobacco-related health factors, that were collected on or before the date of the Encounter. The data comes from the [place] facility where the Encounter took place. Date/Time Smoking Status/Tobacco Use Comment F acility Sep 04, 2023 01:14 PM VA-TOBACCO USE ADVICE [facility] [place] [facility] Sep 04, 2023 01:14 PM VA-TOBACCO USE ROOFING LAYER NO [facility] [place] [facility] Sep 04, 2023 01:14 PM VA-TOBACCO USE MED NO [facility] [place] [facility] Sep 04, 2023 01:14 PM VA-TOBACCO USE WI 30 MIN OF WAKEUP [facility] [place] [facility] Sep 04, 2023 01:14 PM VA-TOBACCO USER EVERY DAY [facility] [place] [facility] Oct 01, 2022 09:45 AM VA-TOBACCO DOESNT USE WI 30 MIN WAKEUP [facility] [place] [facility] Oct 01, 2022 09:45 AM VA-TOBACCO USE 30 YEARS OR MORE [facility] [place] [facility] Oct 01, 2022 09:45 AM VA-TOBACCO USE ADVICE [facility] [place] [facility] Oct 01, 2022 09:45 AM VA-TOBACCO USE ROOFING LAYER NO [facility] [place] [facility] Oct 01, 2022 09:45 AM VA-TOBACCO USE MED NO [facility] [place] [facility] Oct 01, 2022 09:45 AM VA-TOBACCO USER EVERY DAY [facility] [place] [facility] Sep 07, 2021 10:30 AM VA-TOBACCO USE 30 YEARS OR MORE [facility] [place] [facility] Sep 07, 2021 10:30 AM VA-TOBACCO USE ADVICE [facility] [place] [facility] Sep 07, 2021 10:30 AM VA-TOBACCO USE ROOFING LAYER NO [facility] [place] [facility] Sep 07, 2021 10:30 AM VA-TOBACCO USE MED NO [facility] [place] [facility] Sep 07, 2021 10:30 AM VA-TOBACCO USE [place] 30 MIN OF WAKEUP [facility] [place] [facility] Sep 07, 2021 10:30 AM VA-TOBACCO USER EVERY DAY [facility] [place] [facility] Jun 08, 2020 09:00 AM VA-TOBACCO USE 30 YEARS OR MORE [facility] [place] [facility] Jun 08, 2020 09:00 AM VA-TOBACCO USE ADVICE [facility] [place] [facility] Jun 08, 2020 09:00 AM VA-TOBACCO USE ROOFING LAYER NO [facility] [place] [facility] Jun 08, 2020 09:00 AM VA-TOBACCO USE MED NO [facility] [place] [facility] Jun 08, 2020 09:00 AM VA-TOBACCO USE WI 30 MIN OF WAKEUP [facility] [place] [facility] Jun 08, 2020 09:00 AM VA-TOBACCO USER EVERY DAY [facility] [place] [facility] Feb 01, 2019 02:27 PM VA-TOBACCO USE 30 YEARS OR MORE [facility] [place] [facility] Feb 01, 2019 02:27 PM VA-TOBACCO USE ADVICE [facility] [place] [facility] Feb 01, 2019 02:27 PM VA-TOBACCO USE ROOFING LAYER NO [facility] [place] [facility] Feb 01, 2019 02:27 PM VA-TOBACCO USE MED NO [facility] [place] [facility] Feb 01, 2019 02:27 PM VA-TOBACCO USE WI 30 MIN OF WAKEUP [facility] [place] [facility] Feb 01, 2019 02:27 PM VA-TOBACCO USER EVERY DAY [facility] [place] [facility] Apr 02, 2018 02:47 PM CURRENT SMOKER [facility] [place] [facility] Apr 02, 2018 02:47 PM V1-PT DECLINES REF TO TOBACCO CESS PRGM [facility] [place] [facility] Apr 02, 2018 02:47 PM V1-PT DECLINES TOB ACCO CESSATION MEDS [facility] [place] [facility] Apr 02, 2018 02:47 PM V1-PT THINKING ABO UT QUIT TOBACCO USE [facility] [place] [facility] Radiology Reports: +/- 30 days of [...] AM CT THORAX W/O CONT: [place] RENDON [id number] -1955 [facility] Date: APR 01, 2024@08:15 Req Phys: SHERLYN LENTZ Loc: CWM/NO/PACT 7 (Req'g Loc) Img Loc: NHM/CT Service: Unknown [facility] , (Case [id number] COMPLETE) CT THORAX W/O CONT (CT Detailed) CPT:56670 Reason for Study: follow up Clinical History: [...] 06, 2024 Date Verified: APR 06, 2024 [employer] Sales Representative E-Sig: Report: CT THORAX W/O CONT HISTORY: [...] as above. READING PHYSICIAN: Junior Rolle MD -[id number] 04/06/2024 14:08 EDT [facility] National Teleradiology Program [phone] (For Medical Practitioner Use Only) Attention Patients / Veterans: If you have questions or concerns about these test results, please contact your ordering provider or primary care team. Primary Diagnostic Code: SIGNIFICANT ABNORMALITY, ATTN NEEDED Secondary Diagnostic Codes: INCIDENTAL LUNG NODULE(NONSCREENING) Primary Interpreting Staff: RADIOLOGY,OUTSIDE SERVICE, Staff Physician / RADIOLOGY,OUTSIDE SERVICE [facility] Encounter Notes: All associated encounter notes [...] EXP COSIGNER: URGENCY: STATUS: COMPLETED t/c to [facility], i explained ct findings. Stable aneurysm, new lung nod. Will repeat in one year. /lolly/ Sherlyn Lentz DNP, ASSEMBLING FABRICATOR-BC, CNL Primary Care Nurse Practitioner Signed: 04/06/2024 14:19 SHERLYN LENTZ [facility] Mar 23, 2024 02:05 PM PRIMARY CARE NURSE PRACTITIONER OUTPATIENT NOTE: LOCAL TITLE: NURSE PRACTITIONER OUTPATIENT NOTE STANDARD TITLE: PRIMARY CARE NURSE PRACTITIONER OUTPATIENT NOTE DATE OF NOTE: MAR 23, 2024@14:05 ENTRY DATE: MAR 23, 2024@14:05:46 AUTHOR: SHERLYN LENTZ EXP COSIGNER: URGENCY: STATUS: COMPLETED LM to review labs. /lolly/ Sherlyn Lentz DNP, ASSEMBLING FABRICATOR-BC, CNL Primary Care Nurse Practitioner Signed: 03/23/2024 14:06 SHERLYN LENTZ [place] [facility] [place] [facility] Mar 12, 2024 08:12 AM PRIMARY CARE NURSE PRACTITIONER OUTPATIENT NOTE: LOCAL TITLE: NURSE PRACTITIONER OUTPATIENT NOTE STANDARD TITLE: PRIMARY CARE NURSE PRACTITIONER OUTPATIENT NOTE DATE OF NOTE: MAR 12, 2024@08:12 ENTRY DATE: MAR 12, 2024@08:12:47 AUTHOR: SHERLYN LENTZ EXP COSIGNER: URGENCY: STATUS: COMPLETED Chief complaint: Patient is a 68 year old . HPI: Pleasant male Graham here to follow up. Feeling today. Recently [...] 07:59)BMI: 29.6194 lb [88.00 kg] (03/12/2024 07:59) [facility] is alert and oriented X3 Neck: supple [...] due for imaging 4. HTN - Hypertension ([facility] [id number]) - well controlled 5. Hyperlipidemia ([facility] [id number]) - labs today 6. Chronic obstructive lung [...] or non-VA provider. /lolly/ Sherlyn Lentz DNP, ASSEMBLING FABRICATOR-BC, CNL Primary Care Nurse Practitioner Signed: 03/12/2024 08:17 SHERLYN LENTZ [facility] [place] [facility] Mar 12, 2024 08:03 AM PREVENTIVE [...] of his/her rights. Suicide Screen: C-SSRS Screening [place]-Suicide Severity Rating Scale (C-SSRS Screener) 1. Over [...] Not worried about housing near future The [facility] reports the following: Within the past 12 [...] on one occasion in the past year? Nely /lolly/ Alonso Mcqueen, Health Site Worker FOOD PACKER,PRIMARY CARE Signed: 03/12/2024 08:05 03/12/2024 ADDENDUM STATUS: COMPLETED Pneumococcal Conjugate Vaccine (PCV15/PCV20): PCV20 (Prevnar 20) Administered: PNEUMOCOCCAL CONJUGATE PCV20, POLYSACCHARIDE [id number] CONJUGATE, ADJUVANT, PF Date Administered: Mar 12, 2024 08:19 Financial Officer: [employer] Lot: [id number] Exp Date: Jun 05, 2025 ND: [id number] Admin Route/Site: INTRAMUSCULAR/RIGHT DELTOID Dosage: 0.5mL Vaccine Information Statement(s): PNEUMOCOCCAL CONJUGATE ([id number]) VIS February 14, 2023 (MALAY) Order By: Policy Administered By: Dena Jade Vaccine Information Sheet (VIS) was given to the patient/caregiver, education regarding adverse reactions was discussed, as well as barriers to learning, if any, were acknowledged. /lolly/ Dena Jade MSN RN CNL Primary Care RN Signed: 03/12/2024 08:19 ALONSO MCQUEEN [facility]
--- OUTSIDE RECORDS SUMMARY | 2025-01-06 14:20 | XMS_ITS | Clinical Summary ---
Author Organization [facility] Facility Address [address] [place] [address] Care Team Providers Care Curb Attendant Name Role Phone Unavailable Primary Care Provider [...] or PCV20) 04/16/2023 05/03/2019, 04/16/2018 Influenza Vaccine (Season Ended) 2025 Hepatitis B Vaccine Aged Out No longe r eligible based on patient's age to complete this topic Insurance [facility] 1,2,3 (VACCN) [facility] 1,2,3 (VACCN)
--- OUTSIDE RECORDS SUMMARY | 2025-01-06 14:20 | XMS_ITS ---
Author Name [place] Address [address] [place] [address] Care Team Providers Care Assistant Merchandiser Name Role Phone SHERLYN BRADLEY Primary Care Provider [facility] Insurance Providers: All historical and current [...] PART B Apr 05, 2020 PART B [id number] COCO FARLEY [place] PATIENT MEDICARE (WNR) MEDICARE (M) PART A Mar 06, 2019 PART A [id number] Camargo [place] PATIENT Selected Encounter This section includes [...] 12, 2024 08:30 AM AMBULATORY - MEDICINE [place] [facility] Apr 01, 2024 09:00 AM AMBULATORY - NONE [facility] Jul 22, 2024 08:00 AM AMBULAT[facility] - [facility]ICINE [facility] Lab Results: +/- 30 days of [...] Range Comment Jan 21, 2024 09:04 AM [facility] THYROID T4 FREE(FT4) (WROX) Specimen Type: SERUM Comment: Slightly hemolyzed. Some results may be affected. Ordering Provider: JEEVAN RILEY Report Released Date/Time: Dec 23, 2023 02:52 PM Reporting Lab: [facility] [address] [facility] [address] Performing Lab: [facility] [address] [facility] [address] THYROID T4 FREE(FT4) (WROX) 1.24 ng/dL 0.6-1.6 Jan 21, 2024 09:04 AM [facility] TSH Specimen Type: SERUM No comment entered. Ordering Provider: JEEVAN RILEY Report Released Date/Time: Dec 23, 2023 02:52 PM Reporting Lab: [facility] [address] [facility] [address] Performing Lab: [facility] [address] [facility] [address] TSH 0.55 u[IU]/mL 0.35-5.00 Jan 21, 2024 09:04 AM [facility] HEMOGLOBIN A1C PANEL Specimen Type: [...] Jan 21, 2024 08:56 AM Reporting Lab: [facility] [address] [facility] [address] Performing Lab: [address] [address] HEMOGLOBIN A1C 5.3 4.0-5.6 Jan 21, 2024 09:04 AM [facility] MICROALBUMIN CREATININE RATIO PANEL Specimen Type: URINE No comment entered. Ordering Provider: JEEVAN RILEY Report Released Date/Time: Jan 21, 2024 08:56 AM Reporting Lab: [facility] [address] [facility] [address] Performing Lab: [facility] [address] [facility] [address] MICROALBUMIN/C REATININE RATIO 15.6 mg/g 0-29.9 MICROALBUMIN,Q UANTITATIVE 1.8 mg/dL RR UNAVAIL CREATININE URINE 115.12 mg/dL Jan 21, 2024 09:04 AM [facility] BASIC METABOLIC PANEL (fasting) Specimen Type: SERUM No comment entered. Ordering Provider: JEEVAN RILEY Report Released Date/Time: Jan 21, 2024 08:56 AM Reporting Lab: [facility] [address] [facility] [address] Performing Lab: [address] [address] UREA NITROGEN 16 mg/dL 7-25 GLUCOSE 86 [...] 102 160/80 20 93 0 199 30 [place] [facility] [place] [facility] Social History: Smoking Status (Most current) [...] 2023 01:14 PM VA-TOBACCO USER EVERY DAY [place] [facility] Tobacco Use History This section includes a history of the smoking, or tobacco-related health factors, that were collected on or before the date of the Encounter. The data comes from the [place] facility where the Encounter took place. Date/Time Smoking Status/Tobacco Use Comment F acility Sep 04, 2023 01:14 PM VA-TOBACCO USE ADVICE [place] [facility] [place] [facility] Sep 04, 2023 01:14 PM VA-TOBACCO USE INSTRUCTOR DRAMATIC ARTS NO [place] [facility] [facility] Sep 04, 2023 01:14 PM VA-TOBACCO USE MED NO [place] [facility] [place] [facility] Sep 04, 2023 01:14 PM VA-TOBACCO USE WI 30 MIN OF WAKEUP [place] [facility] [place] [facility] Sep 04, 2023 01:14 PM VA-TOBACCO USER EVERY DAY [place] [facility] [place] [facility] Oct 01, 2022 09:45 AM VA-TOBACCO DOESNT USE WI 30 MIN WAKEUP [place] [facility] [place] [facility] Oct 01, 2022 09:45 AM VA-TOBACCO USE 30 YEARS OR MORE [place] [facility] [place] [facility] Oct 01, 2022 09:45 AM VA-TOBACCO USE ADVICE [place] [facility] [place] [facility] Oct 01, 2022 09:45 AM VA-TOBACCO USE INSTRUCTOR DRAMATIC ARTS NO [place] [facility] [facility] Oct 01, 2022 09:45 AM VA-TOBACCO USE MED NO [place] [facility] [place] [facility] Oct 01, 2022 09:45 AM VA-TOBACCO USER EVERY DAY [place] [facility] [facility] Sep 07, 2021 10:30 AM VA-TOBACCO USE 30 YEARS OR MORE [place] [facility] [place] [facility] Sep 07, 2021 10:30 AM VA-TOBACCO USE ADVICE [place] [facility] [place] [facility] Sep 07, 2021 10:30 AM VA-TOBACCO USE INSTRUCTOR DRAMATIC ARTS NO [place] [facility] [place] [facility] Sep 07, 2021 10:30 AM VA-TOBACCO USE MED NO [place] [facility] [place] [facility] Sep 07, 2021 10:30 AM VA-TOBACCO USE [place] 30 MIN OF WAKEUP [place] [facility] [place] [facility] Sep 07, 2021 10:30 AM VA-TOBACCO USER EVERY DAY [place] [facility] [place] [facility] Jun 08, 2020 09:00 AM VA-TOBACCO USE 30 YEARS OR MORE [place] [facility] [place] [facility] Jun 08, 2020 09:00 AM VA-TOBACCO USE ADVICE [place] [facility] [place] [facility] Jun 08, 2020 09:00 AM VA-TOBACCO USE INSTRUCTOR DRAMATIC ARTS NO [facility] [facility] Jun 08, 2020 09:00 AM VA-TOBACCO USE MED NO [place] [facility] [place] [facility] Jun 08, 2020 09:00 AM VA-TOBACCO USE WI 30 MIN OF WAKEUP [place] [facility] [facility] Jun 08, 2020 09:00 AM VA-TOBACCO USER EVERY DAY [place] [facility] [place] [facility] Feb 01, 2019 02:27 PM VA-TOBACCO USE 30 YEARS OR MORE [place] [facility] [place] [facility] Feb 01, 2019 02:27 PM VA-TOBACCO USE ADVICE [place] [facility] [place] [facility] Feb 01, 2019 02:27 PM VA-TOBACCO USE INSTRUCTOR DRAMATIC ARTS NO [place] [facility] [place] [facility] Feb 01, 2019 02:27 PM VA-TOBACCO USE MED NO [facility] [place] [facility] Feb 01, 2019 02:27 PM VA-TOBACCO USE [place] 30 MIN [facility]KEUP [facility] Feb 01, 2019 02:27 PM VA-TOBACCO USER EVERY DAY [facility] Apr 02, 2018 02:47 PM [facility]RENT [facility]ER [place] [facility] Apr 02, 2018 02:47 PM V1-PT DECLINES REF TO TOBACCO CESS PRGM [facility] Apr 02, 2018 02:47 PM V1-PT DECLINES TOB ACCO CESSATION MEDS [facility] Apr 02, 2018 02:47 PM V1-PT THINKING ABO UT QUIT TOBACCO USE [facility] Encounter Notes: All associated encounter [...] = 1) ALBUTEROL INHALER /es/ MARCOS DASH CLEANER GREASER Signed: 01/21/2024 11:08 Receipt Acknowledged By: 01/21/2024 12:53 /lolly/ LEYLA FERRERA, MS,PA-C PHYSICIAN [place] HELPER for MARCOS CALDWELL [facility]
--- OUTSIDE RECORDS SUMMARY | 2025-01-06 14:20 | XMS_ITS ---
Author Name [facility] [place] [facility] [place] Address [address] [place] [id number] Care Team Providers Care Supervisor Receiving And Processing Name Role Phone SHERLYN BRADLEY Primary Care [...] PART B Apr 05, 2020 PART B [id number] NIKOLEDEEJAYMary JoCOCO FRANKLINNDER PATIENT MEDICARE (WNR) MEDICARE (M) PART A Mar 06, 2019 PART A [id number] NIKOLEDEEJAYMary JoCOCO PATIENT Selected Encounter This section includes the information on record at [place] for the Encounter. Date/Time Encounter Type Encounter Description Reason Provider Source Jan 06, 2025 10:30 AM MTMS BY PHARM CONFIGURATION MANAGEMENT CONSULTANT 15 MIN TELEPHONE PRIMARY CARE ICD-10-CM J44.9 Chronic obstructive pulmonary disease, unspecified JEANINE FRANCISCO Encounter Template Text not used by [facility] Assessments - Encounter Diagnoses This section includes the primary and secondary diagnoses documented for the Encounter. Date/Time Primary/Secondary Diagnosis Diagnosis Name Provider Source Jan 06, 2025 10:30 AM PRIMARY Chronic obstructive pulmonary disease, unspecified JEANINE FRANCISCO [facility] Plan of Treatment: Future Appointments (+ 6 months) and Future Tests (+/- 45 days) The Plan of Treatment section includes future care activities for the patient [facility] [place] [facility] This section includes future appointments and future orders which are active, pending or scheduled. Future Appointments This section includes appointments that were scheduled to occur 6 months from the date of the Encounter, up to a maximum of 20 appointments. The data comes from all [facility]. Appointment Date/Time Appointment Type Appointme nt Facility Name Jan 20, 2025 08:00 AM AMBULATORY - MEDICINE [facility] Jan 20, 2025 08:45 AM AMBULATORY - NONE [facility] Active, Pending, and Scheduled Orders This section includes a listing of several types of active, pending, and scheduled orders, including clinic medications orders, diagnostic test orders, procedure orders and consult orders; where the start date of the order is 45 days before the date of the Encounter or 45 days after the date of theEncounter. The data comes from all [facility]. Test Date/Time Test Type Test Details Facility Name Jan 16, 2025 12:00 AM Laboratory - Chemi stry Order CALCIUM BLOOD (SST-SERUM) [facility] Jan 16, 2025 12:00 AM Laboratory - Chemi stry Order VITAMIN D (25-OH) BLOOD (SST-SERUM) [facility] Jan 16, 2025 12:00 AM Laboratory - Chemi stry Order BASIC METABOLIC PANEL (non-fasting) BLOOD (SST-SERUM) [facility] Jan 20, 2025 12:00 AM Imaging - CT Scan Order CT THORAX W/O CONT [facility] Social History: Smoking Status (Most current) and Tobacco Use (All prior to encounter date) This section includes the most current, and the historical, smoking and tobacco- related health factors from the [place] facility where the Encounter took place. Current Smoking Status This section includes the most current smoking, or tobacco-related health factor, from the [place] facility where the Encounter took place. Date/Time Current Smoking Status Comment Facil ity Sep 14, 2024 08:00 AM VA-TOBACCO USE ОЛЕГ RY DAY CIGARETTES [facility] [place] [facility] Tobacco Use History This section includes a history of the smoking, or tobacco-related health factors, that were collected on or before the date of the Encounter. The data comes from the [place] facility where the Encounter took place. Date/Time Smoking Status/Tobacco Use Comment F acility Sep 14, 2024 08:00 AM VA-TOBACCO SCREEN FOLLOW-UP [facility] [place] [facility] Sep 14, 2024 08:00 AM VA-TOBACCO USE ADVICE [facility] [place] [facility] Sep 14, 2024 08:00 AM VA-TOBACCO USE WAREDRESSER NO [facility] [place] [facility] Sep 14, 2024 08:00 AM VA-TOBACCO USE ОЛЕГ RY DAY CIGARETTES [facility] [place] [facility] Sep 14, 2024 08:00 AM VA-TOBACCO USE MED NO [facility] [place] [facility] Sep 04, 2023 01:14 PM VA-TOBACCO USE 30 YEARS OR MORE [facility] [place] [facility] Sep 04, 2023 01:14 PM VA-TOBACCO USE ADVICE [facility] [place] [facility] Sep 04, 2023 01:14 PM VA-TOBACCO USE WAREDRESSER NO [facility] [place] [facility] Sep 04, 2023 01:14 PM VA-TOBACCO USE MED NO [facility] [place] [facility] Sep 04, 2023 01:14 PM VA-TOBACCO USE WI 30 MIN OF WAKEUP [facility] [place] [facility] Sep 04, 2023 01:14 PM VA-TOBACCO USER EVERY DAY [facility] [place] [facility] Oct 01, 2022 09:45 AM VA-TOBACCO DOESNT USE WI 30 MIN WAKEUP [facility] [place] [facility] Oct 01, 2022 09:45 AM VA-TOBACCO USE 30 YEARS OR MORE [facility] [place] [facility] Oct 01, 2022 09:45 AM VA-TOBACCO USE ADVICE [facility] [place] [facility] Oct 01, 2022 09:45 AM VA-TOBACCO USE WAREDRESSER NO [facility] [place] [facility] Oct 01, 2022 09:45 AM VA-TOBACCO USE MED NO [facility] [place] [facility] Oct 01, 2022 09:45 AM VA-TOBACCO USER EVERY DAY [facility] [place] [facility] Sep 07, 2021 10:30 AM VA-TOBACCO USE 30 YEARS OR MORE [facility] [place] [facility] Sep 07, 2021 10:30 AM VA-TOBACCO USE ADVICE [facility] [place] [facility] Sep 07, 2021 10:30 AM VA-TOBACCO USE WAREDRESSER NO [facility] [place] [facility] Sep 07, 2021 10:30 AM VA-TOBACCO USE MED NO [facility] [place] [facility] Sep 07, 2021 10:30 AM VA-TOBACCO USE WI 30 MIN OF WAKEUP [facility] [place] [facility] Sep 07, 2021 10:30 AM VA-TOBACCO USER EVERY DAY [facility] [place] [facility] Jun 08, 2020 09:00 AM VA-TOBACCO USE 30 YEARS OR MORE [facility] [place] [facility] Jun 08, 2020 09:00 AM VA-TOBACCO USE ADVICE [facility] [place] [facility] Jun 08, 2020 09:00 AM VA-TOBACCO USE WAREDRESSER NO [facility] [place] [facility] Jun 08, 2020 09:00 AM VA-TOBACCO USE MED NO [facility] [place] [facility] Jun 08, 2020 09:00 AM VA-TOBACCO USE WI 30 MIN OF WAKEUP [facility] [place] [facility] Jun 08, 2020 09:00 AM VA-TOBACCO USER EVERY DAY [facility] [place] [facility] Feb 01, 2019 02:27 PM VA-TOBACCO USE 30 YEARS OR MORE [facility] [place] [facility] Feb 01, 2019 02:27 PM VA-TOBACCO USE ADVICE [facility] [place] [facility] Feb 01, 2019 02:27 PM VA-TOBACCO USE WAREDRESSER NO [facility] [place] [facility] Feb 01, 2019 02:27 PM VA-TOBACCO USE MED NO [facility] [place] [facility] Feb 01, 2019 02:27 PM VA-TOBACCO USE WI 30 MIN OF WAKEUP [facility] Feb 01, 2019 02:27 PM VA-TOBACCO USER EVERY DAY [facility] Apr 02, 2018 02:47 PM [facility] Apr 02, 2018 02:47 PM V1-PT DECLINES REF TO TOBACCO CESS PRGM [facility] Apr 02, 2018 02:47 PM V1-PT DECLINES TOB ACCO CESSATION MEDS [facility] Apr 02, 2018 02:47 PM V1-PT THINKING ABO UT QUIT TOBACCO USE [facility] Encounter Notes: All associated encounter notes This section contains the clinical notes associated to the Encounter. Date/Time Encounter Note(s) Provider Source Jan 06, 2025 10:27 AM PHARMACY CONSULT: LOCAL TITLE: CONSULT REPORT/PHARMACY STANDARD TITLE: PHARMACY CONSULT DATE OF NOTE: JAN 06, 2025@10:27 ENTRY DATE: JAN 06, 2025@10:27:48 AUTHOR: JEANINE FRANCISCO COSIGNER: URGENCY: STATUS: COMPLETED KINGSTON RENDON is a 69 yo MALE contacted via telephone for initial visit for review of COPD medications. HPI: Pt reports having COPD for many years. Smoked tobacco for ~ 60 years- reports quit a few months ago. He is followed in the community by at [facility] Pulmology. Pt reports his COPD has gotten progressively worse in the past year or so. Denies any hospitalizations within the past year. He reports taking medications as prescribed, maybe misses a few times a month. Denies steroids within past year, although his med hx he was prescribed a course of prednisone in 09/2024. He feels as though his current inhalers are not working as he is using his rescue inhaler or nebulizer w/ albuterol several times a day if he is active, less if at rest. He reports using oxygen tx most of the day and overnight. He confirms that pulmonology office have reviewed how to use inhalers and accessed his techinique. He denies any current or past SI. Denies any current depression. PMH: Active Problem Solitary nodule of lung R91.1 11/09/2024 SHERLYN BRADLEY Alcohol intake exceeds recommended 09/14/2024 SHERLYN BRADLEY Hyponatremia E87.1 07/22/2024 JEEVAN RILEY Multiple nodules of lung R91.1 03/06/2023 SHERLYN BRADLEY Osteoporosis M81.0 02/15/2023 ROSEMARYJEEVAN Benign neoplasm of pituitary gland 01/09/2023 JEEVAN RILEY Diplopia H53.2 11/04/2022 SHERLYN BRADLEY Hypothyroid E03.9 11/04/2022 SHERLYN BRADLEY Polyp Colon ([facility] [id number]) K63.5 06/04/2019 SHERLYN BRADLEY Aneurysm of thoracic aorta I71.4 09/07/2021 SHERLYN BRADLEY HTN - Hypertension ([facility] [id number]) I 11/06/2018 SHERLYN BRADLEY Hyperlipidemia ([facility] [id number]) E78.5 12/07/2020 SHERLYN BRADLEY Chronic obstructive lung disease J4 06/16/2018 SHERLYN BRADLEY Tobacco user Z72.0 06/16/2018 SHERLYN BRADLEY Elevated blood-pressure reading wit 01/02/2018 YASMIN APONTE Dyspnea ([facility] [id number]) R06.00 01/02/2018 YASMIN APONTE Diagnosis or Condition Deferred on 05/27/2000 GEOVANNA ESCOBAR Allergies/ADR: HCTZ HYDROCHLOROTHIAZIDE Active and Recently Outpatient Medications (including Supplies): Active Outpatient Medications Status 1) ALBUTEROL 90MCG (CFC-F) 200D ORAL INHL INHALE 2 PUFFS BY ACTIVE MOUTH EVERY 4 HOURS NEEDED FOR BREATHING 2) ALBUTEROL SO4 0.083% INHL 3ML INHALE 1 AMPULE IN NEBULIZER ACTIVE EVERY 6 HOURS NEEDED FOR BREATHING Indication: FOR BRONCHOSPASM 3) ATORVASTATIN CALCIUM 40MG TAB TAKE ONE-HALF TABLET BY MOUTH ACTIVE ONCE DAILY FOR CHOLESTEROL 4) DEMECLOCYCLINE HCL 150MG TAB TAKE ONE TABLET BY MOUTH TWICE ACTIVE DAILY Indication: FOR INFECTION 5) FLUTICAS 250/SALMETEROL 50 INHL DISK 60 INHALE 1 PUFF BY ACTIVE MOUTH TWICE DAILY - RINSE MOUTH AFTER USE REPLACES SYMBICORT (BUDESONIDE/FORMOTEROL) 6) FUROSEMIDE 40MG TAB TAKE ONE TABLET BY MOUTH ONCE DAILY TO ACTIVE REMOVE FLUID/CONTROL BLOOD PRESSURE 7) LEVOTHYROXINE NA 88MCG TAB TAKE ONE TABLET BY MOUTH EVERY ACTIVE MORNING 30 MINUTES BEFORE BREAKFAST TAKE ON AN EMPTY STOMACH WITH A FULL GLASS OF WATER Indication: FOR THYROID 8) LISINOPRIL 30MG TAB TAKE ONE TABLET BY MOUTH ONCE DAILY TO ACTIVE CONTROL BLOOD PRESSURE NOTE NEW TABLET STRENGTH 9) NAPROXEN 500MG TAB TAKE ONE TABLET BY MOUTH EVERY 12 HOURS ACTIVE NEEDED TAKE WITH FOOD; /INFLAMMATION/SWELLING Indication: FOR PAIN 10) TIOTROPIUM 2.5MCG/ACTUAT 60D ORAL INHL INHALE 2 PUFFS BY ACTIVE MOUTH ONCE DAILY THIS REPLACES TIOTROPIUM HANDIHALER CAPSULES Inactive Outpatient Medications Status 1) ALBUTEROL 90MCG (CFC-F) 200D ORAL INHL INHALE 2 PUFFS BY DISCONTINUED MOUTH EVERY 4 HOURS NEEDED FOR BREATHING 2) ATORVASTATIN CALCIUM 40MG TAB TAKE ONE-HALF TABLET BY MOUTH DISCONTINUED ONCE DAILY FOR CHOLESTEROL 3) CALCIUM 200MG (CA CITRATE-950MG) TAB TAKE THREE TABLETS BY MOUTH TWICE DAILY Indication: FOR OSTEOPOROSIS 4) CHOLECALCIF 25MCG (D3-1,000UNIT) TAB TAKE ONE TABLET BY MOUTH ONCE DAILY FOR VITAMIN SUPPLEMENTATION Indication: FOR VITAMIN D DEFICIENCY 5) FLUTICAS 250/SALMETEROL 50 INHL DISK 60 INHALE 1 PUFF BY DISCONTINUED MOUTH TWICE DAILY - RINSE MOUTH AFTER USE REPLACES SYMBICORT (BUDESONIDE/FORMOTEROL) 6) FUROSEMIDE 40MG TAB TAKE ONE TABLET BY MOUTH ONCE DAILY TO DISCONTINUED REMOVE FLUID/CONTROL BLOOD PRESSURE 7) LEVOTHYROXINE NA 88MCG TAB TAKE ONE TABLET BY MOUTH EVERY DISCONTINUED MORNING 30 MINUTES BEFORE BREAKFAST TAKE ON AN EMPTY STOMACH WITH A FULL GLASS OF WATER Indication: FOR THYROID 8) LISINOPRIL 30MG TAB TAKE ONE TABLET BY MOUTH ONCE DAILY TO DISCONTINUED CONTROL BLOOD PRESSURE NOTE NEW TABLET STRENGTH 9) PREDNISONE 20MG TAB TAKE ONE TABLET BY MOUTH ONCE DAILY Indication: FOR ASTHMA 10) TIOTROPIUM 2.5MCG/ACTUAT 60D ORAL INHL INHALE 2 PUFFS BY DISCONTINUED MOUTH ONCE DAILY THIS REPLACES TIOTROPIUM HANDIHALER CAPSULES Active Non-VA Medications Status 1) Non-VA OXYGEN MISCELLANEOUS DIRECTED ACTIVE 21 Total Medications Labs: CHEM 7 TREND LAB CUMULATIVE SELECTED Collection DT Spec GLUCOSE BUN CREATIN Sodium K+/Pot CL CO2 09/06/2024 09:52 SERUM 87 16 0.89 137 4.6 97 L 27 07/14/2024 09:10 SERUM 95 15 0.91 128 L 4.9 88 L 24 07/12/2024 13:01 SERUM 78 13 0.81 126 L 4.7 87 L 27 01/21/2024 09:04 SERUM 86 16 0.85 133 L 4.7 96 L 23 10/23/2023 09:48 SERUM 106 H 21 0.87 138 4.8 100 27 LAB CUMULATIVE SELECTED 2 No selection items chosen for this component. CHEM 7 Results Collection DT Spec Sodium K+/Pot CL CO2 GLUCOSE BUN 09/06/2024 09:52 SERUM 137 4.6 97 L 27 87 16 07/14/2024 09:10 SERUM 128 L 4.9 88 L 24 95 15 07/12/2024 13:01 SERUM 126 L 4.7 87 L 27 78 13 01/21/2024 09:04 SERUM 133 L 4.7 96 L 23 86 16 10/23/2023 09:48 SERUM 138 4.8 100 27 106 H 21 10/02/2023 10:32 SERUM 135 4.4 99 L 25 97 13 01/09/2023 08:51 SERUM 135 5.0 98 L 27 99 19 11/04/2022 07:44 SERUM 128 L 5.2 H 93 L 25 102 H 17 01/02/2022 14:24 SERUM 142 4.5 104 26 101 H 12 09/07/2021 10:05 SERUM 139 5.1 H 99 L 27 100 15 03/09/2021 13:04 SERUM 141 4.7 102 28 88 15 11/29/2020 13:57 SERUM 138 4.8 99 L 27 103 H 16 06/08/2020 09:58 SERUM 140 4.4 100 26 93 12 02/15/2019 08:39 SERUM 138 4.5 100 27 106 H 13 10/09/2018 13:40 SERUM 138 4.7 100 28 108 H 20 04/22/2018 07:05 SERUM 136 4.8 96 L 29 104 H 22 eGFR CKD-EPI 202009/06/24 09:52 >90 SERUM LIVER PANEL TREND Collection DT Spec AST ALT T BILI ALK ROSSY T. PROT ALBUMIN 09/06/2024 09:51 SERUM 38 H 29 1.2 116 7.1 3.9 03/12/2024 07:31 SERUM 48 H 29 1.5 H 110 7.1 4.4 10/02/2023 10:32 SERUM 36 H 35 1.0 92 6.7 4.1 11/04/2022 07:44 SERUM 20 14 1.0 96 7.0 4.3 01/02/2022 14:24 SERUM 31 38 1.1 92 7.1 4.1 HEMOGLOBIN A1C TREND Collection DT Spec HGBA1c 01/21/2024 09:04 BLOOD 5.3 10/02/2023 10:32 BLOOD 5.1 11/04/2022 07:44 BLOOD 5.4 11/29/2020 13:57 BLOOD 4.9 06/08/2020 09:58 BLOOD 5.4 LIPID PANEL TREND Collection DT Spec CHOL HDL CHO/HDL LDL-c TRIG 09/06/2024 09:51 SERUM 154 73 H 2.1 67 71 03/12/2024 07:31 SERUM 161 71 H 2.3 75 73 10/02/2023 10:32 SERUM 179 70 H 2.6 95 69 04/10/2023 07:54 SERUM 169 76 H 2.2 82 53 11/04/2022 07:44 SERUM 153 65 H 2.4 74 69 Vitals: Ht: 68 in [172.7 cm] (09/14/2024 07:53) Wt: 201 lb [91.17 kg] (09/14/2024 07:53) BMI: BMI: 30.6 BP: 130/80 (09/14/2024 08:51) HR: 9 (09/14/2024 07:53) Assessment/Plan: Reviewed non-form denials with pt. Agree with current denials as pt has not been hospitalized in past year. In reviewing Gold Guidelines from 2023 given pt continues to have dyspnea with current regimen he would benefit from change of device or therapy escalation. Could consider changing from DPI (fluticasone/salmeterol) back to budesonide/formoterol (MDI) or change to Breztri. Could possibly consider roflumilast or azithromycin although pt is not having exacerbations so utility is unclear. CPP contacted pulmonology office and spoke with quality control clerk who will provider denials for Dr. Ramos prior to pt apt today. Additionally CPP provided additional interventions as disucssed above. Will work with pharmacy and pulm office if needed. Pt agreed to above plan and can reach out to CPP at any time if has any questions. EDUCATION -A shared decision-making approach was used in the development of this plan, involving the , clinician, and any caregivers present. The was provided the opportunity express questions or concerns, and the plan was adjusted as needed to address these concerns. -Reviewed with [place] any new medications, changes to the medication list, education, and plan from today's visit. Patient (and/or caregiver) verbalized understanding of the plan, including possible known risks and benefits, and had no additional questions. RTC: PRN Time Spent: 17 mins PBM PharmD Pharmacotherapy Rem V12: PHARMACIST INTERVENTIONS: CHRONIC OBSTRUCTIVE PULMONARY DISEASE (COPD) Medication monitoring, no dosage change required, continue to monitor and assess PBM PharmD Pharmacotherapy Rem V12: Medication reconciliation (changes to active VA and non-VA medication lists to reconcile differences) No changes to medication lists made (medication review completed, no discrepancies identified) /lolly/ JEANINE FRANCISCO PHARMD,[facility] PRACTITIONER Signed: 01/06/2025 12:29 JEANINE FRANCISCO [facility]
== END 2025-01-06 13:31 | disposition home or self-care (01) ==
LOC: HO.HPS 13:08
PROVIDERS: PCP Nurse Practitioner Family; Referring Provider Internal Medicine Pulmonary Disease; Visit Provider Internal Medicine Pulmonary Disease
DX: J44.9 Chronic obstructive pulmonary disease, unspecified (principal); Z99.81 Dependence on supplemental oxygen; Z87.891 Personal history of nicotine dependence; R06.09 Other forms of dyspnea
CPT/HCPCS: 99214; G2211

== ENCOUNTER → 2025-01-06 13:07 | Outpatient (BNVA) | payer OTHER, SELFPAY | PROVIDERS: PCP Nurse Practitioner Family; Visit Provider Internal Medicine Pulmonary Disease | DX: J44.9 Chronic obstructive pulmonary disease, unspecified (principal); R06.09 Other forms of dyspnea; Z99.81 Dependence on supplemental oxygen; Z87.891 Personal history of nicotine dependence | CPT/HCPCS: 99212 ==

== ENCOUNTER 2025-02-15 08:01 | Inpatient (IN) | payer OTHER, SELFPAY ==
[2025-02-15] VITALS (14 sets, daily range): BP systolic 110–158; BP diastolic 64–88; PULSE 95–140; RESP 18–28; TEMP 35.6–36.8; O2SAT 95–97; BMI 31.0; BMI 28.4
--- NOTE | ~2025-02-15 | XR_ITS ---
EXAMINATION: XR CHEST CLINICAL INFORMATION: SOB COMPARISON: None available. TECHNIQUE: Frontal view of the chest was obtained. FINDINGS: The cardiac, hilar, and mediastinal contours are normal. The lungs are clear bilaterally. No pneumothorax or effusion. No focal osseous or soft tissue abnormality. XR/XR chest 1V IMPRESSION: No active pulmonary disease. Electronically signed by: Marty Pelletier MD 02/15/2025 09:15 AM EDT RP
[2025-02-15] MEDS: levalbuterol HCL 1.25 MG, Ipratropium Bromide 0.5 MG INHALE (08:18)
--- NOTE | 2025-02-15 08:18 | ED.SOB ---
HPI - SOB/Dyspnea General Chief Complaint: Dyspnea Stated Complaint: SOB Time Seen by Provider: 02/15/25 08:16 Source: patient Mode of arrival: ambulatory History of Present Illness HPI Narrative: this is a 69 years old the patient presented to the emergency department with a chief complaint of shortness of breath. The patient has a history of COPD O2 dependent, he has a history of AFib on Eliquis diltiazem which he stopped both 5 days ago because he had a rash. MD elicited complaint: shortness of breath Pertinent past history: COPD Onset (ago): day(s) (1) Timing: constant Severity: moderate Exacerbating factors: nothing Relieving factors: nothing Known history of: COPD Associated symptoms: denies other symptoms Related Data Home oxygen amount: 3 liters Home Medications ?Medication ?Instructions ?Recorded ?Confirmed albuterol sulfate 2.5 mg/3 mL 2.5 mg inhalation Q6H 10/18/24 (0.083 %) solution for nebulization albuterol sulfate 90 mcg/actuation 2 puff inhalation Q4-6H PRN 10/18/24 aerosol inhaler atorvastatin 40 mg tablet 40 mg PO DAILY 10/18/24 calcium citrate 200 mg PO DAILY 10/18/24 cholecalciferol (vitamin D3) 25 25 mcg PO DAILY 10/18/24 mcg (1,000 unit) tablet demeclocycline 150 mg tablet 150 mg PO Q6H 10/18/24 fluticasone 250 mcg-salmeterol 50 1 inh inhalation BID 10/18/24 mcg/dose blistr powdr for inhalation levothyroxine 88 mcg tablet 88 mcg PO DAILY 10/18/24 lisinopril 30 mg tablet 30 mg PO DAILY 10/18/24 naproxen 500 mg tablet 500 mg PO BID 10/18/24 tiotropium bromide 2.5 2 puff inhalation DAILY 10/18/24 mcg/actuation mist for inhalation Previous Rx's ?Medication ?Instructions ?Recorded ensifentrine 3 mg/2.5 mL 2.5 ml inhalation BID #150 mL 11/25/24 suspension for nebulization (Ohtuvayre) revefenacin 175 mcg/3 mL solution 175 mcg (3 mL) inhalation DAILY 11/25/24 for nebulization (Yupelri) #90 mL furosemide 40 mg tablet 40 mg PO DAILY #30 tabs 12/13/24 theophylline 400 mg 400 mg PO DAILY #30 tabs 01/06/25 tablet,extended release 24 hr Allergies Allergy/AdvReac Type Severity Reaction Status Date / Time hydrochlorothiazide AdvReac Severe Rash Verified 02/15/25 08:12 Review of Systems Constitutional: Constitutional: Reports no additional constitutional complaints ENT: Reports system reviewed and no additional complaints, except as documented Cardiovascular: Cardiovascular: Reports no additional cardiovascular complaints Respiratory: Respiratory: Reports as per HPI [facility] Past Medical History Attestation statement: The following information was validated with the patient. [facility] Narrative: COPD O2 dependent on 3 L, atrial fibrillation Social History Social History Patient Tobacco Use Status: Current everyday Tobacco user Tobacco use type: Cigarette Years Smoked: started at age 12, 2-3 PPD, quit 10/16/2024 Advance Directives: No Advance Directives Information Provided: Yes Physical Exam Vital Signs: Vital Signs: Last Vital Signs Temp 98.2 F 02/15/25 08:17 Pulse 137 H 02/15/25 09:25 Resp 26 H 02/15/25 09:25 BP 139/72 02/15/25 09:25 Pulse Ox 97 02/15/25 09:25 O2 Del Method Nasal Cannula 02/15/25 09:25 O2 Flow Rate 3 02/15/25 09:25 Oxygen Flow Rate 3 02/15/25 08:10 BMI result Body Mass Index 31.0 mild distress Const: General: cooperative Orientation/consciousness: patient oriented x3 HEENT: Head: Yes normal to inspection Ears: hearing grossly normal bilaterally General nose exam: Normal external nose present Face and sinus: Yes normal facial exam Throat: Yes posterior oropharynx normal Neck: Neck: Yes normal visual inspection and Yes full ROM Chest: Chest palpation & inspection: normal inspection of the chest Resp: Other: patient is in [id number] respiratory distress Auscultation: bronchial breath sounds Cardio: Other: irregularly irregular heart GI: Inspection: Yes normal to inspection Palpation (GI): Soft to palpation Skin: General skin exam: no rashes or lesions noted and elasticity normal Neuro: General: patient oriented x3 Course Reevaluation(s) Reevaluation #1: feeling better heart rate down to 120, pH okay discussed with the hospitalist Time: 10:03 Medications Administered Generic Name Dose Route Start Last Admin Trade Name Freq PRN Reason Stop Dose Admin Diltiazem HCl 125 mg/ Sodium 125 mls @ 0 mls/hr 02/15/25 08:30 02/15/25 09:24 Chloride IVCONT 15 mg/hr .Q0M MARYA 15 mls/hr Titration Protocol Per Protocol Discontinued Medications Generic Name Dose Route Start Last Admin Trade Name Lulu PRN Reason Stop Dose Admin Albuterol Sulfate 5 mg/ 0 mg 02/15/25 08:10 02/15/25 08:15 Albuterol/Ipratropium 3 ml INHALE 02/15/25 08:11 Not Given ONCE ONE Levalbuterol HCl 1.25 mg/ 0 mg 02/15/25 08:16 02/15/25 08:18 Ipratropium Regan 0.5 mg INHALE 02/15/25 08:17 1.3 dose ONCE ONE Administration Diltiazem HCl 15 mg 02/15/25 08:17 02/15/25 08:48 Diltiazem Hcl 50 Mg/10 Ml Vial IVPUSH 02/15/25 08:18 15 mg STAT STA Administration Methylprednisolone Sodium Succinate 125 mg 02/15/25 09:45 02/15/25 09:43 Methylprednisolone Sod Succ 125 Mg Vial IVPUSH 02/15/25 09:46 Not Given ONCE ONE Medical Decision Making Medical Decision Making [facility] Narrative: patient presented in respiratory distress rapid atrial fibrillation we will administer bronchodilator Solu-Medrol we will try to control the rate Differential Diagnosis Differential Diagnoses: The differential diagnosis associated with the presentation includes COPD exacerbation/ rapid atrial fibrillation /congestive heart failure Admission/Observation Consideration of admission/observation: Escalation of care including admission/observation considered Lab Data 02/15/25 08:45 02/15/25 08:45 Labs: Lab Results 02/15/25 02/15/25 Range/Units 08:45 09:09 WBC 13.1 H (4.8-10.8) X10*3/uL RBC 3.66 L (4.60-5.80) X10*6/uL Hgb 11.7 L (14.0-18.0) g/dl Hct 34.9 L (42.0-52.0) % MCV 95.4 (80.0-98.0) fL MCH 32.0 (27.0-33.0) pg MCHC 33.5 (31.0-36.0) g/dl RDW 12.4 (11.0-16.0) % Plt Count 297 (160-400) X10*3/uL MPV 11.9 (9.4-12.4) fL Immature Gran % (Auto) 4.0 H (0.0-0.4) % Neut % (Auto) 70.6 (45-73) % Lymph % (Auto) 10.1 L (20-40) % Spink % (Auto) 10.2 (2-11) % Eos % (Auto) 4.4 H (0-4) % Baso % (Auto) 0.7 (0-2) % Lymph # (Auto) 1.3 (1.2-4.9) X10*3/uL Spink # (Auto) 1.3 H (0.1-1.2) X10*3/uL Eos # (Auto) 0.6 H (0.0-0.4) X10*3/uL Baso # (Auto) 0.1 (0.0-0.2) X10*3/uL Abs Immat Gran (auto) 0.52 H (0.00-0.03) X10*3/uL Absolute Neuts (auto) 9.3 H (2.0-8.3) x10*3/uL Absolute Nucleated RBC 0.040 H (0.0-0.012) X10*3/uL Nucleated RBC % (auto) 0.3 H (0.0-0.2) /100WBC Hold Blue Top SEE NOTE VBG pH 7.44 H (7.32-7.43) VBG pCO2 66 mmHg VBG pO2 32 mmHg VBG HCO3 45 H (22-26) mmol/L VBG O2 Saturation 39.0 % VBG Base Excess 18.0 mmol/L Sodium 139 (135-145) mmol/L Potassium 3.4 (3.3-5.1) mmol/L Chloride 90 L (96-108) mmol/L Carbon Dioxide 33 H (22-29) mmol/L Anion Gap 19 (12-20) BUN 18 H (9-16) mg/dL Creatinine 1.00 (0.5-1.4) mg/dL Estim Creat Clear Calc 77.1 Estimated GFR > 60 Random Glucose 122 H (60-115) mg/dL Calcium 9.9 (8.4-10.2) mg/dL Total Bilirubin 0.7 (0.0-1.0) mg/dL AST 34 (5-37) U/L ALT 10 (0-40) U/L Alkaline Phosphatase 124 H (39-117) U/L Troponin I High Sens 9.3 (<3.5-35.0) ng/L Total Protein 7.1 (6.5-8.0) g/dL Albumin 3.9 (3.5-5.0) g/dL Critical Care Time Critical Care Time Critical Care Time: Yes Total Critical Care Time: 60 Attestation: rapid AFib IV Cardizem and titration, IV digox, Discharge Plan Discharge Clinical Impression: Atrial fibrillation with RVR, Chronic obstructive pulmonary disease with (acute) exacerbation Patient Disposition: Admitted As Inpatient Print Language: Swiss
[2025-02-15] MEDS: dilTIAZem HCL 50 MG/10 ML VIAL 15 MG IVPUSH (08:48)
[2025-02-15 09:01] LABS: Basophils Absolute Auto 0.1 X10*3/uL (0.0-0.2); Basophils Percent Auto 0.7 % (0-2); Eosinophils Absolute Auto 0.6 X10*3/uL (0.0-0.4); Eosinophils Percent Auto 4.4 % (0-4); Hematocrit 34.9 % (42.0-52.0); Hemoglobin 11.7 g/dl (14.0-18.0); Imm Gran Abs Auto 0.52 X10*3/uL (0.00-0.03); Lymphocytes Absolute Auto 1.3 X10*3/uL (1.2-4.9); Lymphocytes Percent Auto 10.1 % (20-40); MANUAL DIFF FLAG NO; Mean Corpuscular HGB Conc 33.5 g/dl (31.0-36.0); Mean Corpuscular Volume 95.4 fL (80.0-98.0); Mean Platelet Volume 11.9 fL (9.4-12.4); Monocytes Absolute Auto 1.3 X10*3/uL (0.1-1.2); Monocytes Percent Auto 10.2 % (2-11); NRBC Pct Auto 0.3 /100WBC (0.0-0.2); Neutrophils Absolute Auto 9.3 x10*3/uL (2.0-8.3); Neutrophils Percent Auto 70.6 % (45-73); Platelet Count 297 X10*3/uL (160-400); Red Blood Count 3.66 X10*6/uL (4.60-5.80); Red Cell Distribution Width 12.4 % (11.0-16.0); White Blood Count 13.1 X10*3/uL (4.8-10.8)
[2025-02-15] MEDS: dilTIAZem HCL 125 MG in 0.9 % Sodium Chloride 100 ML 10 MG IVCONT (09:07)
--- OUTSIDE RECORDS SUMMARY | 2025-02-15 09:11 | XMS_ITS | Encounter Summary ---
Author Name [facility] Address [address] [place] [id number] Care Team Providers Care Bearing Machine Operator Name Role Phone SHERLYN BRADLEY [...] PART B Apr 05, 2020 PART B [id number] MIGUELITOCOCO FRANKLINNDER PATIENT MEDICARE (WNR) MEDICARE (M) PART A Mar 06, 2019 PART A [id number] NIKOLEDEEJAYMary JoCOCO PATIENT Selected Encounter This section includes the information on record at [place] for the Encounter. Date/Time Encounter Type Encounter Description Reason Provider Source Jan 24, 2025 02:00 PM COMPRE OPH EXAM NEW PT 1/> OPTOMETRY ICD-10-CM H25.813 Combined forms of age-related cataract, bilateral BORASKI,ANA E IHNathaniel Encounter Template Text not used by [facility] Assessments - Encounter Diagnoses This section includes the primary and secondary diagnoses documented for the Encounter. Date/Time Primary/Secondary Diagnosis Diagnosis Name Provider Source Jan 24, 2025 03:55 PM PRIMARY Combined forms of age-related cataract, bilateral ANA CASTANEDA [facility] Jan 24, 2025 03:55 PM SECONDARY Unspecified amblyopia, left eye ANA CASTANEDA [facility] Plan of Treatment: Future Appointments (+ 6 months) and Future Tests (+/- 45 days) The Plan of Treatment section includes future care activities for the patient [facility] This section includes future appointments and future orders which are active, pending or scheduled. Future Appointments This section includes appointments that were scheduled to occur 6 months from the date of the Encounter, up to a maximum of 20 appointments. The data comes from all [place] treatment facilities. Appointment Date/Time Appointment Type Appointme nt Facility Name Feb 02, 2025 08:15 AM AMBULATORY - NONE [facility] Feb 02, 2025 09:00 AM AMBULATORY - NONE [facility] February 17, 2025 09:00 AM AMBULATORY - MEDICINE [facility] Jul 26, 2025 09:00 AM AMBULATORY - MEDICINE [facility] Active, Pending, and Scheduled Orders This section includes a listing of several types of active, pending, and scheduled orders, including clinic medications orders, diagnostic test orders, procedure orders and consult orders; where the start date of the order is 45 days before the date of the Encounter or 45 days after the date of theEncounter. The data comes from all [facility] facilities. Test Date/Time Test Type Test Details Facility Name Jan 20, 2025 12:00 AM Laboratory - Chemi stry Order BASIC METABOLIC PANEL (non-fasting) BLOOD (SST-SERUM) SP [facility] Jan 24, 2025 03:22 PM Consult Order COMMUNITY CARE-OPHTHALMOLOGY Cons Autographer's Choice [facility] Jan 25, 2025 02:39 PM Consult Order COMMUNITY CARE-CARDIOLOGY Cons Autographer's Choice [facility] February 10, 2025 12:00 AM Imaging - General Radiology Order OUTSIDE MRI BRAIN W/WO CONTRAST [facility] Lab Results: +/- 30 days of the encounter This section includes the Chemistry and Hematology Lab Results on record with [place] for the patient. Radiology Reports and Pathology Reports are provided separately, in subsequent sections. Lab Results This section contains the Chemistry/Hematology Results that were resulted 30 days before or 30 daysafter the date of the Encounter. Date/Time Source Result Type Result - Unit Interpretation Reference Range Specimen Type Comment Jan 17, 2025 09:54 AM [facility] CALCIUM SERUM Specimen Type: SERUM No comment entered. Ordering Provider: JEEVAN RILEY Report Released Date/Time: Jul 18, 2024 06:58 PM Reporting Lab: [address] [id number] Performing Lab: [address] [address] CALCIUM 9.9 mg/dL 8.8-10 Jan 17, 2025 09:54 AM [facility] FREE T4 SERUM Specimen Type: SERUM No comment entered. Ordering Provider: JEEVNA RILEY Report Released Date/Time: Jan 16, 2025 03:25 PM Reporting Lab: [address] [address] Performing Lab: [address] [address] FREE T4 1.29 ng/dL 0.70-1.48 Jan 17, 2025 09:54 AM [facility] VITAMIN D (25-OH) SERUM Specimen Type: SERUM No comment entered. Ordering Provider: JEEVAN RILEY Report Released Date/Time: Jul 18, 2024 06:58 PM Reporting Lab: [address] [address] Performing Lab: [address] [address] VITAMIN D (25-OH) 46.2 ng/mL 20-50 Jan 17, 2025 09:54 AM [facility] BASIC METABOLIC PANEL (non-fasting) SERUM Spe cimen Type: SERUM No comment entered. Ordering Provider: JEEVAN RILEY Report Released Date/Time: Jul 18, 2024 06:58 PM Reporting Lab: [facility] [place] [facility] [address] [facility] [address] Performing Lab: [facility] [place] [facility] [address] [facility] [address] UREA NITROGEN 39 mg/dL H 8-26 GLUCOSE 109 mg/dL H 65-100 SODIUM 140 mmol/L 136-145 POTASSIUM 5.0 mmol/L 3.5-5.1 CHLORIDE 102 mmol/L 98-107 CO2 26 meq/L 23-31 CALCIUM 9.9 mg/dL 8.8-10 CREATININE, Serum 1.46 mg/dL H 0.72-1.25 eGFR(CKD-EPI 2020) 51 mL/min L >60 Social History: Smoking Status (Most current) and Tobacco Use (All prior to encounter date) This section includes the most current, and the historical, smoking and tobacco- related health factors from the [place] facility where the Encounter took place. Current Smoking Status This section includes the most current smoking, or tobacco-related health factor, from the [place] facility where the Encounter took place. Date/Time Current Smoking Status Comment Facil ity Sep 14, 2024 08:00 AM VA-TOBACCO NEVER U SED OTHER TYPE [facility] Tobacco Use History This section includes a history of the smoking, or tobacco-related health factors, that were collected on or before the date of the Encounter. The data comes from the [place] facility where the Encounter took place. Date/Time Smoking Status/Tobacco Use Comment F acility Sep 14, 2024 08:00 AM VA-TOBACCO SCREEN FOLLOW-UP [facility] [place] [facility] Sep 14, 2024 08:00 AM VA-TOBACCO USE ADVICE [facility] Sep 14, 2024 08:00 AM VA-TOBACCO USE ELECTRIC SIGN WIRER NO [facility] [place] [facility] Sep 14, 2024 08:00 AM VA-TOBACCO USE ОЛЕГ RY DAY CIGARETTES [facility] [place] [facility] Sep 14, 2024 08:00 AM VA-TOBACCO USE MED NO [facility] [place] [facility] Sep 04, 2023 01:14 PM VA-TOBACCO USE 30 YEARS OR MORE [facility] [place] [facility] Sep 04, 2023 01:14 PM VA-TOBACCO USE ADVICE [facility] [place] [facility] Sep 04, 2023 01:14 PM VA-TOBACCO USE ELECTRIC SIGN WIRER NO [facility] [place] [facility] Sep 04, 2023 01:14 PM VA-TOBACCO USE MED NO [facility] [place] [facility] Sep 04, 2023 01:14 PM VA-TOBACCO USE WI 30 MIN OF WAKEUP [facility] [place] [facility] Sep 04, 2023 01:14 PM VA-TOBACCO USER EVERY DAY [facility] [place] [facility] Oct 01, 2022 09:45 AM VA-TOBACCO DOESNT USE WI 30 MIN WAKEUP [facility] [place] [facility] Oct 01, 2022 09:45 AM VA-TOBACCO USE 30 YEARS OR MORE [facility] [place] [facility] Oct 01, 2022 09:45 AM VA-TOBACCO USE ADVICE [facility] [place] [facility] Oct 01, 2022 09:45 AM VA-TOBACCO USE ELECTRIC SIGN WIRER NO [facility] [place] [facility] Oct 01, 2022 09:45 AM VA-TOBACCO USE MED NO [facility] [place] [facility] Oct 01, 2022 09:45 AM VA-TOBACCO USER EVERY DAY [facility] [place] [facility] Sep 07, 2021 10:30 AM VA-TOBACCO USE 30 YEARS OR MORE [facility] [place] [facility] Sep 07, 2021 10:30 AM VA-TOBACCO USE ADVICE [facility] [place] [facility] Sep 07, 2021 10:30 AM VA-TOBACCO USE ELECTRIC SIGN WIRER NO [facility] [place] [facility] Sep 07, 2021 10:30 AM VA-TOBACCO USE MED NO [facility] [place] [facility] Sep 07, 2021 10:30 AM VA-TOBACCO USE WI 30 MIN OF WAKEUP [facility] [place] [facility] Sep 07, 2021 10:30 AM VA-TOBACCO USER EVERY DAY [facility] [place] [facility] Jun 08, 2020 09:00 AM VA-TOBACCO USE 30 YEARS OR MORE [facility] [place] [facility] Jun 08, 2020 09:00 AM VA-TOBACCO USE ADVICE [facility] [place] [facility] Jun 08, 2020 09:00 AM VA-TOBACCO USE ELECTRIC SIGN WIRER NO [facility] [place] [facility] Jun 08, 2020 09:00 AM VA-TOBACCO USE MED NO [facility] [place] [facility] Jun 08, 2020 09:00 AM VA-TOBACCO USE WI 30 MIN OF WAKEUP [facility] [place] [facility] Jun 08, 2020 09:00 AM VA-TOBACCO USER EVERY DAY [facility] [place] [facility] Feb 01, 2019 02:27 PM VA-TOBACCO USE 30 YEARS OR MORE [facility] [place] [facility] Feb 01, 2019 02:27 PM VA-TOBACCO USE ADVICE [facility] [place] [facility] Feb 01, 2019 02:27 PM VA-TOBACCO USE ELECTRIC SIGN WIRER NO [facility] [place] [facility] Feb 01, 2019 02:27 PM VA-TOBACCO USE MED NO [facility] [place] [facility] Feb 01, 2019 02:27 PM VA-TOBACCO USE WI 30 MIN OF WAKEUP [facility] [place] [facility] Feb 01, 2019 02:27 PM VA-TOBACCO USER EVERY DAY [facility] [place] [facility] Apr 02, 2018 02:47 PM CURRENT SMOKER [facility] [place] [facility] Apr 02, 2018 02:47 PM V1-PT DECLINES REF TO TOBACCO CESS PRGM [facility] [place] [facility] Apr 02, 2018 02:47 PM V1-PT DECLINES TOB ACCO CESSATION MEDS [facility] [place] [facility] Apr 02, 2018 02:47 PM V1-PT THINKING ABO UT QUIT TOBACCO USE [facility] [place] [facility] Radiology Reports: +/- 30 days [...] the Encounter. The data comes from all [place] treatment facilities. Date/Time Radiology Report Provider Source Feb 02, 2025 08:57 AM MRI BRAIN W/WO CONTRAST: KINGSTON RENDON [id number] -[id number] M Exrl Date: FEB 02, 2025@08:57 Req Phys: JEEVAN RILEY Loc: [facility] ENDOCRINE MD 1 (Req'g Loc) Img Loc: [facility] MRI Service: Unknown [facility] [place] [address] (Case [id number] COMPLETE) MRI BRAIN W/WO CONTRAST (MRI Detailed) CPT:73399 Contrast Media : Gadolinium Reason for Study: Pituitary adenoma, worsening vision Clinical History: PLEASE NOTE If patient is claustrophobic consider ordering anti-anxiety medication prior to MRI. Safety Assessment: You must answer ALL questions or this questionnaire is not captured. Ordering provider, phone number and beeper:Ericka/Yanique Maurer RN [phone] Weight: 205 lb [92.99 kg] (01/20/2025 07:59) Height: 68 in [172.7 cm] (01/20/2025 07:59) Creatinine: CREATININE Collection DT Specimen Test Name Result Units Ref Range 01/21/2024 09:04 URINE CREATININE URINE 115.12 mg/dL BUN: BUN Collection DT Specimen Test Name Result Units Ref Range 01/17/2025 09:54 SERUM UREA NITROGEN 39 H mg/dL 8 - 26 Can Radiology order radiographs on your behalf limited to a body area in question for the specific reason of excluding metallic foreign bodies as needed, to ensure safe performance of the MRI study requested: Yes The Radiologist may determine that the administration of oral and/or IV contrast is/or is not required based on clinical history and renal function. If you would like to specifically discuss the protocol please call Radiology at [facility]. Does the patient have any contraindications to MRI? Yes - Metal in eyes No - Intracranial aneurysm clip/coil No - Pacemaker No - Implanted electronic device No - Cochlear Implant No - Insulin pumps No - Glucose meters Recent Surgeries: No Anything IN or ON your body you were not born with: No Report Status: Verified Date Reported: FEB 02, 2025 Date Verified: FEB 02, 2025 Forest Fire Control Officer E-Sig:/ES/ASHANTI ROMERO Report: PITUITARY MRI W/WO: CLINICAL INDICATION: Reason for Study: Pituitary adenoma, worsening vision PLEASE NOTE If patient is claustrophobic consider ordering anti-anxiety medication prior to MRI. Safety Assessment: You must answer ALL questions or this questionnaire is not captured. Ordering provider, phone number and beeper:Ericka/Yanique Maurer RN [phone] Weight: 205 l REASON FOR STUDY: Pituitary adenoma, worsening vision COMPARISON: None TECHNIQUE: MR imaging of the sella/pituitary without and with dotarem (unspecified amount) gadolinium intravenous contrast. FINDINGS: Pituitary/sella/suprasellar cistern: No greater than 1 cm solid or cystic pituitary, sella, suprasellar cistern or cavernous sinus mass. Bony sella intact. 3.1 mm focus of T1 hypointense signal without significant enhancement at the junction of the adeno and neurohypophysis. Enterprise gland: Normal volume and positioned within the sella. Pituitary infundibulum: Normal thickness. Midline. Optic chiasm: Normal signal intensity and morphology. Vasculature: Infraclinoid intercarotid distance: 21.4mm. Supraclinoid intercarotid distance. 13.4mm. Preserved flow signal. Sphenoid sinus pneumatization: Presellar. Origin of the sphenoid septum from the midline. . Brain (limited): No acute findings. Calvarium (limited): No acute or concerning findings. Orbits (limited): Within normal limits. Vascular system: Normal signal voids are appreciated in the major arterial vessels. Paranasal sinuses: Mild mucosal thickening. Trace fluid in the inferior left mastoid air cell. Cervical spine (limited): No acute findings. Deep spaces of the neck (limited): No acute findings. 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 Primary Diagnostic Code: No immediate attention required Primary Interpreting Staff: ASHANTI ROMERO, Staff Physician (Forest Fire Control Officer) /ASH[facility]I [facility] Feb 02, 2025 08:28 AM BONE DENSITY DXA: KINGSTON RENDON [id number] -1955 Ex Date: FEB 02, 2025@08:28 Req Phys: JEEVAN RILEY Loc: [facility] ENDOCRINE 1 (Req'g Loc) [facility] Loc: [facility] 1 Service: Unknown [facility] [place] [address] (Case [id number] COMPLETE) BONE DENSITY AXIAL-DXA (RAD Detailed) CPT:10934 Reason for Study: osteoporosis Clinical History: Report Status: Verified Date Reported: FEB 02, 2025 Date Verified: FEB 02, 2025 Forest Fire Control Officer E-Sig:/ES/AUSTIN GARCIA Report: DXA BONE DENSITY AXIAL: 02/02/2025 8:28 AM CLINICAL HISTORY: osteoporosis. . World Health Organization (WHO) Reference Standards (T score calculation uses a uniform (non-race adjusted) female reference for women and men of all ethnic groups, concordant with the 2019 ISCD Adult Official Position Statement) T-Score Diagnostic Category > - 1 Normal -1 to 2.5 Osteopenia < -2.5 Osteoporosis < -2.5 and fracture(s) Established osteoporosis Z-score (preferred for premenopausal females and males under 50) > -2.0 within the expected range for age < or equal to -2.0 below the expected range for age Fracture risk projected to increase more than twofold for each decremental reduction in standard deviation (?T? Score) from peak bone mass. The World Health Organization has reported that fracture risk approximately doubles for each standard deviation decrease in bone mineral density below the mean of young normals. DEXA MODEL: The exam was performed on a [employer] A system at [place], [place]. YOUNG AGE Bone Mineral ADULT MATCHED REGION Density g/cm2 T-Score Z-Score L1-L4 0.989 -0.9 0.0 Neck Left 0.640 -2.1 -0.9 Total Left 0.806 -1.5 -0.8 FINDINGS: Lumbar spine T score -0.9 is consistent with normal bone mineral density. This represents a significant, 3.5%, increase in bone mineral density since 02/11/2023. Lowest femoral neck or total hip T score -2.1 is consistent with low bone mass (aka osteopenia). This represents a significant, 8.6%, increase in bone mineral density since 02/11/2023. The online WHO fracture risk assessment tool (FRAX) suggests a 10% probability of a major osteoporotic fracture and a 3.5% probability of a hip fracture during the next 10 years. Impression: Low bone mass (aka osteopenia). Significant increase in bone mineral density since 02/11/2023. Primary Diagnostic Code: No immediate attention required Primary Interpreting Staff: AUSTIN GARCIA, Staff Physician (Forest Fire Control Officer) /AUSTIN MORRIS [facility] Jan 21, 2025 10:[address] THORAX W/O CONT: KINGSTON RENDON [id number] -1955 M Exm Date: JAN 21, 2025@10:07 Req Phys: SHERLYN BRADLEY Loc: [facility] PACT 7 EDUCATIONAL PROGRAM ASSISTANT (Req'g Loc) Img Loc: [facility]/CT Service: [place] [address] (Case [id number] COMPLETE) CT THORAX W/O CONT (CT Detailed) CPT:24892 Reason for Study: 3 mos follow up Clinical History: 10/21/2024 found to have a new 7.4mm nodule right upper lobe, follow up due January 19, 2025 Report Status: Verified Date Reported: JAN 21, 2025 Date Verified: JAN 21, 2025 Forest Fire Control Officer E-Sig:/ES/AUSTIN GARCIA Report: Exam: CT chest without contrast performed on 01/21/2025 at 10:07 AM CLINICAL HISTORY: Follow-up pulmonary nodules. INTRAVENOUS CONTRAST: None. TECHNIQUE: Helical acquisition through the chest was performed. Coronal and sagittal reformatted images created using iterative reconstruction technique for improved diagnostic accuracy with reduced radiation exposure. Vessel suppression and nodule detection algorithms were applied during data post processing. COMPARISON: 10/21/2024, 04/01/2024, 06/06/2023, 10/08/2021. FINDINGS: CHEST Lower Neck: No adenopathy or masses. Lines and tubes: None. Lungs: 4.7 x 4.0 mm right upper lobe nodule on series 8 image 51 is significantly smaller than it was on the prior examination. 4.2 x 3.5 mm nodule in the right upper lobe on series 8 image 62 is stable. 3.9 x 5.9 mm right upper lobe nodule on series 8 image 66 is stable. 6.2 x 3.6 mm nodule in the right upper lobe on series 8 image 74 is slightly smaller. 3 mm nodule in the left upper lobe on series 8 image 77 is slightly smaller. 4.6 x 3.2 mm nodule in the anterior right upper lobe on series 8 image 122 is stable. 3 mm nodule in the apical segment of the right lower lobe is stable. No new or enlarging pulmonary nodules. Emphysema. Airway: Patent. Normal in caliber and wall thickness. Pleura: No effusion, nodularity, or pneumothorax. Heart and Great Vessels: Coronary atherosclerosis. Mediastinum: No adenopathy or mass. Bones: There are degenerative endplate osteophytes and facet hypertrophy. No fractures or pathological lesions. Chest Wall: No axillary adenopathy or chest wall mass. Upper abdomen: Fatty infiltration of the liver. Impression: 1. Decrease in size of previously noted right upper lobe nodule. 2. Multiple additional nodules in the right and left lungs are stable or slightly smaller than they had been. Primary Diagnostic Code: No immediate attention required Primary Interpreting Staff: Staff SOHAN Physician (Forest Fire Control Officer) /AUSTIN MORRIS [facility] Encounter Notes: All associated encounter notes This section contains the clinical notes associated to the Encounter. Date/Time Encounter Note(s) Provider Source Jan 24, 2025 02:22 PM OPTOMETRY NOTE: LOCAL TITLE: OPTOMETRY NOTE(T) STANDARD TITLE: OPTOMETRY NOTE DATE OF NOTE: JAN 24, 2025@14:22 ENTRY DATE: JAN 24, 2025@14:22:48 AUTHOR: ANA CASTANEDA EXP COSIGNER: URGENCY: STATUS: COMPLETED I saw this patient in conjunction with the student and agree to the stated findings and plan after reviewing both history and repeating waller elements of physical exam. 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 He also has combined cataracts and PVD OU. No other acute ocular disease was seen today. He complains of more blurred vision then from his last exam and today's refraction does not improve acuity. Also ordered macular OCT which showed normal thickness and contour OU. Will order consult to [facility] in [place] for cataract surgery consult OU. The patient will return in 6 months or sooner if any problems arise. /lolly/ ANA CASTANEDA OD STAFF SPINNER BOX Signed: 01/24/2025 15:55 ANA CASTANEDA [facility] [place] [facility] Jan 24, 2025 02:07 PM OPTOMETRY NOTE: LOCAL TITLE: OPTOMETRY NOTE STANDARD TITLE: OPTOMETRY NOTE DATE OF NOTE: JAN 24, 2025@14:07 ENTRY DATE: JAN 24, 2025@14:07:56 AUTHOR: YINKA TOBAR COSIGNER: ANA CASTANEDA URGENCY: STATUS: COMPLETED Active problems - Computerized Problem List is the source for the followin. Long-term current use of anticoagulant 2. Atrial fibrillation 3. Solitary nodule of lung 4. Alcohol intake exceeds recommended daily limit 5. Hyponatremia 6. Multiple nodules of lung 7. Osteoporosis 8. Benign neoplasm of pituitary gland 9. Diplopia 10. Hypothyroid 11. Polyp Colon (RUST [id number]) 12. Aneurysm of thoracic aorta 13. HTN - Hypertension (RUST [id number]) 14. Hyperlipidemia (RUST [id number]) 15. Chronic obstructive lung disease 16. Tobacco user 17. Elevated blood-pressure reading without diagnosis of hypertension 18. Dyspnea (RUST [id number]) 19. Diagnosis or Condition Deferred on [place] Active Outpatient Medications (including Supplies): Active Outpatient Medications Status = 1) ALBUTEROL 90MCG (CFC-F) 200D ORAL INHL INHALE 2 PUFFS BY ACTIVE MOUTH EVERY 4 HOURS NEEDED FOR BREATHING 2) ALBUTEROL SO4 0.083% INHL 3ML INHALE 1 AMPULE IN NEBULIZER ACTIVE EVERY 6 HOURS NEEDED FOR BREATHING Indication: FOR BRONCHOSPASM 3) APIXABAN 5MG TAB TAKE ONE TABLET BY MOUTH EVERY 12 HOURS ACTIVE 4) ATORVASTATIN CALCIUM 40MG TAB TAKE ONE-HALF TABLET BY MOUTH ACTIVE ONCE DAILY FOR CHOLESTEROL 5) DILTIAZEM (EQV-TIAZAC) 180MG 24HR CAP TAKE ONE CAPSULE ONCE ACTIVE DAILY 6) FLUTICAS 250/SALMETEROL 50 INHL DISK 60 INHALE 1 PUFF BY ACTIVE MOUTH TWICE DAILY - RINSE MOUTH AFTER USE REPLACES SYMBICORT (BUDESONIDE/FORMOTEROL) 7) FUROSEMIDE 40MG TAB TAKE ONE TABLET BY MOUTH ONCE DAILY TO ACTIVE REMOVE FLUID/CONTROL BLOOD PRESSURE 8) LEVOTHYROXINE NA 88MCG TAB TAKE ONE TABLET BY MOUTH EVERY ACTIVE MORNING 30 MINUTES BEFORE BREAKFAST TAKE ON AN EMPTY STOMACH WITH A FULL GLASS OF WATER Indication: FOR THYROID 9) LISINOPRIL 30MG TAB TAKE ONE TABLET BY MOUTH ONCE DAILY TO ACTIVE CONTROL BLOOD PRESSURE NOTE NEW TABLET STRENGTH 10) NAPROXEN 500MG TAB TAKE ONE TABLET BY MOUTH EVERY 12 HOURS ACTIVE NEEDED TAKE WITH FOOD; /INFLAMMATION/SWELLING Indication: FOR PAIN 11) THEOPHYLLINE 400MG 24HR SA TAB TAKE ONE TABLET BY MOUTH ONCE ACTIVE DAILY 12) TIOTROPIUM 2.5MCG/ACTUAT 60D ORAL INHL INHALE 2 PUFFS BY ACTIVE MOUTH ONCE DAILY THIS REPLACES TIOTROPIUM HANDIHALER CAPSULES Active Non-VA Medications Status = 1) Non-VA OXYGEN MISCELLANEOUS DIRECTED ACTIVE 13 Total Medications Allergies: HCTZ HYDROCHLOROTHIAZIDE All medications including those prescribed by outside VA's, community providers, and all OTC meds were reviewed and reconciled with patient to the best of their abilities. This 69 year old MALE is seen today for comprehensive eye exam SKYLER: NOV 19 2022 Chief Complaint: Distance and near are blurry, has been worsening over the last 6-7 months, states he has glare issues and that he cant see shit . says he has a fog over his vision, OU constant. Glasses do not help. Denies double vision. occasional crusting. OHx: 1. Transient diplopia; secondary to pituitary adenoma, resolved. 2. refractive ambylopia OS 3. combined cataracts OU Ocular Medications: (-) Pain: (-) MERCER: (+) Diplopia: transient from pituitary adenoma; resolved. (-) Flashes: (-) Floaters: (-) Amaurosis Fugax/Tia's: (+) Eye Injury: corneal FB removal OU (-) Eye Surgery: (-) TBI FOHx: (-) Glaucoma/ARMD/Blindness VITALS (most recent, as listed in the electronic record): B/P: 101/67 (01/20/2025 07:59) Pulse: 160 (01/20/2025 07:59) Temperature: 98.1 F [36.7 C] (01/20/2025 07:59) Weight: 205 lb [92.99 kg] (01/20/2025 07:59) Height: 68 in [172.7 cm] (01/20/2025 07:59) BMI: BMI: 31.2 PERTINENT LABS: HEMOGLOBIN A1C TREND Collection DT Spec HGBA1c 01/21/2024 09:04 BLOOD 5.3 10/02/2023 10:32 BLOOD 5.1 11/04/2022 07:44 BLOOD 5.4 11/29/2020 13:57 BLOOD 4.9 06/08/2020 09:58 BLOOD 5.4 (-) Former Smoker/Length of Time/PPD: Quit 2-3 months ago Current Rx with last BCVA: OD: -0.25 sph OS +1.00 -1.75 X135 DVA ( X )sc ( X )cc - phoropter OD: 20/70 20/60 OS: 20/200 20/100 Pupils: PERRL (-)APD EOMs: SAFE OU, (-)Pain/Diplopia CVF (facial, peripheral): FTFC OU Cover test show L exotropia 4-6PD Subjective Refraction: OD: -0.75 sph 20/50 OS: +1.25 -1.75 X135 20/100 Add: +2.50 20/100 All the above performed by student, reviewed by attending Anterior segment: Performed by student, repeated by attending Lids: dermatochalasis OU Conj: chronic injection OU Cornea: clear OD old scar inf to visual axis OS AC: D&Q OU Angles: 4x4 OU Iris: flat and clear OU Lens: NS 2+ and Tr ACC OU Tr -+1 PSC OU Tonometry: Performed by student, reviewed by attending [ ] GAT [ X ] iCare [] Kirby OD 10 mmHg OS 11 mmHg Time: 2:30pm Fundus exam: Dilated: XXX 2:33pm Non dilated: Dilating Drops: 1GTT 1 % Tropicamide OU & 1GTT 2.5% Phenylephrine OU (Pt. ed. on side effects, dilation warning given and verbal consent obtained) Patient advised not to drive if they feel they have any symptoms which could affect their ability to drive safely. Patient advised not to engage in any activities which could put themselves or others at risk if they feel they have any symptoms which could affect their ability to perform those activities safely. Performed by student, repeated by attending Vit: PVD OU C/D: 0.30 OD, 0.20 OS Macula: flat and clear OU ERM OD PPole: clear OU A/V: 1/2 Vessels: normal caliber OU Periph: flat and intact (-)holes, tears, detachments 360 OU Assessment/Plan: 1. Puckering of the macula, OS - Not interrupting retinal layers, Mac OCT done today to rule out ERM disruption of vision. - monitor 2. Hx of Pituitary adenoma - not impinging on visual pathway 3. Refractive Amblyopia, OS - longstanding, due to significant anisometropia. - stable, but vision also decreased, likely secondary to cataracts 4. Combined Form Cataracts OU - Pt. ed. on findings - cataracts visually significant and likely consistent with decreased vision referring to [place] for cataract consultation - Ed. on importance of UV protection and on symptoms of glare - Monitor yearly 5. Presbyopia OU - Pt. ed. on todays findings - Monitor Return to Clinic 12 months or earlier PRN /lolly/ LALITHA TOBAR OPTOMETRY STUDENT Signed: 01/24/2025 16:27 /lolly/ ANA CASTANEDA OD STAFF SPINNER BOX Cosigned: 01/24/2025 16:36 FRANCISCO TOBAR [facility]
--- OUTSIDE RECORDS SUMMARY | 2025-02-15 09:11 | XMS_ITS ---
Author Name [facility] Address [address] [place] [address] Care Team Providers Care Fashion Director Name Role Phone SHERLYN BRADLEY Primary Care Provider [facility] Insurance Providers: All historical and current [...] PART B Apr 05, 2020 PART B [id number] NIKOLEDEEJAYMary JoCOCO PATIENT MEDICARE (WNR) MEDICARE (M) PART A Mar 06, 2019 PART A [id number] NIKOLEDEEJAYMary JoCOCO PATIENT Selected Encounter This section includes the information on record at [place] for the Encounter. Date/Time Encounter Type Encounter Description Reason Provider Source Jan 24, 2025 03:30 PM CPTRZ OPH DX IMG PST SGM RTA OPTOMETRY ICD-10-CM H53.143 Visual discomfort, bilateral BORASKI,ANA E IHE Encounter Template Text not used by [facility] Assessments - Encounter Diagnoses This section includes the primary and secondary diagnoses documented for the Encounter. Date/Time Primary/Secondary Diagnosis Diagnosis Name Provider Source Jan 24, 2025 04:39 PM PRIMARY Visual discomfort, bilateral ANA CASTANEDA [facility] Plan of Treatment: Future Appointments (+ 6 months) and Future Tests (+/- 45 days) The Plan of Treatment section includes future care activities for the patient from all [place] [facility] [place]. This section includes future appointments and future [...] 02, 2025 08:15 AM AMBULATORY - NONE [facility] Feb 02, 2025 09:00 AM [facility] February 17, 2025 09:00 AM AMBULATORY - MEDICINE [facility] Jul 26, 2025 09:00 AM AMBULATORY - MEDICINE [facility] Active, Pending, and Scheduled Orders This section includes a listing of several types of active, pending, and scheduled orders, including clinic medications orders, diagnostic test orders, procedure orders and consult orders; where the start date of the order is 45 days before the date of the Encounter or 45 days after the date of theEncounter. The data comes from all [facility]. Test Date/Time Test Type Test Details Facility Name Jan 20, 2025 12:00 AM Laboratory - Chemi stry Order BASIC METABOLIC PANEL (non-fasting) BLOOD (SST[facility]SERUM) [facility] Jan 24, 2025 03:22 PM Consult Order COMMUNITY CARE-OPHTHALMOLOGY Cons Propeller Driven Airplane Mechanic's Choice [facility] Jan 25, 2025 02:39 PM Consult Order COMMUNITY CARE-CARDIOLOGY Cons Propeller Driven Airplane Mechanic's Choice [facility] February 10, 2025 12:00 AM Imaging - General Radiology Order OUTSIDE MRI BRAIN W/WO CONTRAST [facility] Lab Results: +/- 30 days of the [...] Type Comment Jan 17, 2025 09:54 AM [facility] CALCIUM SERUM Specimen Type: SERUM No comment entered. Ordering Provider: JEEVAN RILEY Report Released Date/Time: Jul 18, 2024 06:58 PM Reporting [facility] [address] [address] Performing Lab: [facility] [address] CALCIUM 9.9 mg/dL 8.8-10 Jan 17, 2025 09:54 AM [facility] FREE T4 SERUM Specimen Type: SERUM No comment entered. Ordering Provider: JEEVAN RILEY Report Released Date/Time: Jan 16, 2025 03:25 PM Reporting Lab: [facility] [address] [address] Performing Lab: [address] [address] FREE T4 1.29 ng/dL 0.70-1.48 Jan 17, 2025 09:54 AM [facility] VITAMIN D (25-OH) SERUM Specimen Type: SERUM No comment entered. Ordering Provider: JEEVAN RILEY Report Released Date/Time: Jul 18, 2024 06:58 PM Reporting Lab: [facility] [address] [address] Performing Lab: [facility] [address] VITAMIN D (25-OH) 46.2 ng/mL 20-50 Jan 17, 2025 09:54 AM [facility] BASIC METABOLIC PANEL (non-fasting) SERUM Spe cimen Type: SERUM No comment entered. Ordering Provider: JEEVAN RILEY Report Released Date/Time: Jul 18, 2024 06:58 PM Reporting Lab: [address] [address] Performing Lab: [facility] [place] [facility] [address] [address] UREA NITROGEN 39 mg/dL H 8-26 GLUCOSE [...] AM VA-TOBACCO NEVER U SED OTHER TYPE [facility] Tobacco Use History This section includes a history of the smoking, or tobacco-related health factors, that were collected on or before the date of the Encounter. The data comes from the [place] facility where the Encounter took place. Date/Time Smoking Status/Tobacco Use Comment F acility Sep 14, 2024 08:00 AM VA-TOBACCO SCREEN FOLLOW-UP [facility] [place] [facility] Sep 14, 2024 08:00 AM VA-TOBACCO USE ADVICE [facility] [place] [facility] Sep 14, 2024 08:00 AM VA-TOBACCO USE SHOTGUN SHELL REPRINTING UNIT OPERATOR NO [facility] [place] [facility] Sep 14, 2024 08:00 AM VA-TOBACCO USE ОЛЕГ RY DAY CIGARETTES [facility] [place] [facility] Sep 14, 2024 08:00 AM VA-TOBACCO USE MED NO [facility] [place] [facility] Sep 04, 2023 01:14 PM VA-TOBACCO USE 30 YEARS OR MORE [facility] [place] [facility] Sep 04, 2023 01:14 PM VA-TOBACCO USE ADVICE [facility] [place] [facility] Sep 04, 2023 01:14 PM VA-TOBACCO USE SHOTGUN SHELL REPRINTING UNIT OPERATOR NO [facility] [place] [facility] Sep 04, 2023 01:14 PM VA-TOBACCO USE MED NO [facility] [place] [facility] Sep 04, 2023 01:14 PM VA-TOBACCO USE WI 30 MIN OF WAKEUP [facility] [place] [facility] Sep 04, 2023 01:14 PM VA-TOBACCO USER EVERY DAY [facility] [place] [facility] Oct 01, 2022 09:45 AM VA-TOBACCO DOESNT USE WI 30 MIN WAKEUP [facility] [place] [facility] Oct 01, 2022 09:45 AM VA-TOBACCO USE 30 YEARS OR MORE [facility] [place] [facility] Oct 01, 2022 09:45 AM VA-TOBACCO USE ADVICE [facility] [place] [facility] Oct 01, 2022 09:45 AM VA-TOBACCO USE SHOTGUN SHELL REPRINTING UNIT OPERATOR NO [facility] [place] [facility] Oct 01, 2022 09:45 AM VA-TOBACCO USE MED NO [facility] [place] [facility] Oct 01, 2022 09:45 AM VA-TOBACCO USER EVERY DAY [facility] [place] [facility] Sep 07, 2021 10:30 AM VA-TOBACCO USE 30 YEARS OR MORE [facility] [place] [facility] Sep 07, 2021 10:30 AM VA-TOBACCO USE ADVICE [facility] [place] [facility] Sep 07, 2021 10:30 AM VA-TOBACCO USE SHOTGUN SHELL REPRINTING UNIT OPERATOR NO [facility] [place] [facility] Sep 07, 2021 10:30 AM VA-TOBACCO USE MED NO [facility] [place] [facility] Sep 07, 2021 10:30 AM VA-TOBACCO USE WI 30 MIN OF WAKEUP [facility] [place] [facility] Sep 07, 2021 10:30 AM VA-TOBACCO USER EVERY DAY [facility] [place] [facility] Jun 08, 2020 09:00 AM VA-TOBACCO USE 30 YEARS OR MORE [facility] [place] [facility] Jun 08, 2020 09:00 AM VA-TOBACCO USE ADVICE [facility] [place] [facility] Jun 08, 2020 09:00 AM VA-TOBACCO USE SHOTGUN SHELL REPRINTING UNIT OPERATOR NO [facility] [place] [facility] Jun 08, 2020 09:00 AM VA-TOBACCO USE MED NO [facility] [place] [facility] Jun 08, 2020 09:00 AM VA-TOBACCO USE WI 30 MIN OF WAKEUP [facility] [place] [facility] Jun 08, 2020 09:00 AM VA-TOBACCO USER EVERY DAY [facility] [place] [facility] Feb 01, 2019 02:27 PM VA-TOBACCO USE 30 YEARS OR MORE [facility] [place] [facility] Feb 01, 2019 02:27 PM VA-TOBACCO USE ADVICE [facility] [place] [facility] Feb 01, 2019 02:27 PM VA-TOBACCO USE SHOTGUN SHELL REPRINTING UNIT OPERATOR NO [facility] [place] [facility] Feb 01, 2019 02:27 PM VA-TOBACCO USE MED NO [facility] [place] [facility] Feb 01, 2019 02:27 PM VA-TOBACCO USE WI 30 MIN OF WAKEUP [facility] [place] [facility] Feb 01, 2019 02:27 PM VA-TOBACCO USER EVERY DAY [facility] [place] [facility] Apr 02, 2018 02:47 PM CURRENT SMOKER ME [facility] [place] [facility] Apr 02, 2018 02:47 PM V1-PT DECLINES REF TO TOBACCO CESS PRGM [facility] [place] [facility] Apr 02, 2018 02:47 PM V1-PT DECLINES TOB ACCO CESSATION MEDS [facility] [place] [facility] Apr 02, 2018 02:47 PM V1-PT THINKING ABO UT QUIT TOBACCO USE [facility] Radiology Reports: +/- 30 days [...] the Encounter. The data comes from all [place] treatment facilities. Date/Time Radiology Report Provider Source Feb 02, 2025 08:57 AM MRI BRAIN W/WO CONTRAST: KINGSTON RENDON [id number] -[id number] M Exm Date: FEB 02, 2025@08:57 Req Phys: JEEVAN RILEY Loc: [facility] ENDOCRINE 1 (Req'g Loc) Img Loc: [facility] MRI Service: [facility] [place] [address] (Case [id number] COMPLETE) MRI BRAIN W/WO CONTRAST (MRI Detailed) CPT:34200 Contrast Media : Gadolinium Reason for Study: Pituitary adenoma, worsening vision Clinical History: PLEASE NOTE If patient is claustrophobic consider ordering anti-anxiety medication prior to MRI. Safety Assessment: You must answer ALL questions or this questionnaire is not captured. Ordering provider, phone number and beeper:Ericka/Yanique Maurer RN [phone] Weight: 205 lb [92.99 kg] (01/20/2025 [...] 02, 2025 Date Verified: FEB 02, 2025 Acute Care Occupational Therapist E-Sig:/ES/ASHANTI ROMERO Report: PITUITARY MRI W/WO: CLINICAL INDICATION: Reason for Study: Pituitary adenoma, worsening vision PLEASE NOTE If patient is claustrophobic consider ordering anti-anxiety medication prior to MRI. Safety Assessment: You must answer ALL questions or this questionnaire is not captured. Ordering provider, phone number and beeper:Ericka/Yanique Maurer RN [phone] Weight: 205 l REASON FOR STUDY: [...] the junction of the adeno and neurohypophysis. [place] gland: Normal volume and positioned within the [...] Primary Interpreting Staff: ASHANTI ROMERO, Staff Physician (Acute Care Occupational Therapist) /ASHANTI CODY [facility] Feb 02, 2025 08:28 AM BONE DENSITY DXA: KINGSTON RENDON [id number] -1955 [facility] Date: FEB 02, 2025@08:28 Req Phys: JEEVAN RILEY Loc: [facility] ENDOCRINE MD 1 (Req'g Loc) Im Loc: [facility] 1 Service: Unknown [facility] [place]IKA HAYES [address] (Case [id number] COMPLETE) BONE DENSITY AXIAL-DXA (RAD Detailed) CPT:08809 Reason for Study: osteoporosis Clinical History: Report Status: Verified Date Reported: FEB 02, 2025 Date Verified: FEB 02, 2025 Acute Care Occupational Therapist E-Sig:/ES/AUSTIN Laureano GARCIA Report: DXA BONE DENSITY AXIAL: 02/02/2025 [...] MODEL: The exam was performed on a Kineta A system at [place], [place]. 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 [employer] (Req'g Loc) Img Loc: [facility]/CT Service: Unknown [facility] [place] [address] (Case [id number] COMPLETE) CT THORAX W/O CONT (CT Detailed) CPT:06636 Reason for Study: 3 mos follow up Clinical History: 10/21/2024 found to have a new 7.4mm nodule right upper lobe, follow up due January 19, 2025 Report Status: Verified Date Reported: JAN 21, 2025 Date Verified: JAN 21, 2025 Acute Care Occupational Therapist E-Sig:/ES/AUSTIN GARCIA Report: Exam: CT chest without [...] immediate attention required Primary Interpreting Staff: AUSTIN GARCIA Staff Physician (Acute Care Occupational Therapist) /AUSTIN MORRIS [facility] Encounter Notes: All associated encounter notes This section contains the clinical notes associated to the Encounter. Date/Time Encounter Note(s) Provider Source Jan 24, 2025 04:36 PM OPTOMETRY NOTE: LOCAL TITLE: OPTOMETRY NOTE(T) STANDARD TITLE: OPTOMETRY NOTE DATE OF NOTE: JAN 24, 2025@16:36 ENTRY DATE: JAN 24, 2025@16:36:54 AUTHOR: ANA CASTANEDA EXP COSIGNER: URGENCY: STATUS: COMPLETED Results were viewed and clinical findings were reviewed with student internal salesperson and patient and results are in this note. Assessment and plan are reasonable. History of normal thickness and contour of macula OU. Patient was referred to [facility] for cataract consultation. /lolly/ ANA CASTANEDA OD STAFF MATERIAL HAULER Signed: 01/24/2025 16:39 ANA CASTANEDA [facility] Jan 24, 2025 04:00 PM OPTOMETRY CONSULT: LOCAL TITLE: CONSULT REPORT/OPTOMETRY OCT STANDARD TITLE: OPTOMETRY CONSULT DATE OF NOTE: JAN 24, 2025@16:00 ENTRY DATE: JAN 24, 2025@16:01:01 AUTHOR: YINKA TOBAR EXP COSIGNER: ANA CASTANEDA URGENCY: STATUS: COMPLETED Macula OCT report: Macula OCT reviewed for patient with puckering of the macula, OS OD: normal foveal contour, (-)SRF/IRF OS: normal foveal contour, (-)SRF/IRF A/P: OCT presented with presence of epiretinal membrane with no distortion of retinal layers OD. No significant disruption or wrinkling of surface noted. Referral to [facility] for cataract consultation as decrease in visual acuity it not from epiretinal membrane, RTC 6 months or sooner as needed /lolly/ LALITHA TOBAR OPTOMETRY STUDENT Signed: 01/24/2025 16:25 /lolly/ ANA CASTANEDA OD STAFF MATERIAL HAULER Cosigned: 01/24/2025 16:36 YINKA TOBAR Y [facility]
--- OUTSIDE RECORDS SUMMARY | 2025-02-15 09:11 | XMS_ITS ---
Author Name [facility] [place] [facility] [place] Address [address] [place] [address] Care Team Providers Care Compactor Driver Name Role Phone SHERLYN BRADLEY Primary Care Provider [facility] Insurance Providers: All historical and [...] PART B Apr 05, 2020 PART B [id number] [place] PATIENT MEDICARE (WNR) MEDICARE (M) PART A Mar 06, 2019 PART A [id number] [place] PATIENT Selected Encounter This section includes the information on record at [place] for the Encounter. Date/Time Encounter Type Encounter Description Reason Provider Source Nov 26, 2024 11:28 AM [facility] [place] [facility] DIG ASSMT&MGMT -20 CLINICAL PHARMACY ICD-10-CM J44.9 Chronic obstructive pulmonary disease, unspecified SOVEROW,BHUPENDRA Y A IHE Encounter Template Text not used by [place] Assessments - Encounter Diagnoses This section includes the primary and secondary diagnoses documented for the Encounter. Date/Time Primary/Secondary Diagnosis Diagnosis Name Provider Source Nov 26, 2024 11:41 AM PRIMARY Chronic obstructive pulmonary disease, unspecified BHUPENDRA SCHUMACHER [facility] Plan of Treatment: Future Appointments (+ [...] 06, 2025 10:30 AM AMBULATORY [place]IC[place] [facility] [place] [facility] Jan 20, 2025 08:00 AM [facility] Jan 20, 2025 09:15 AM AM[facility]UL[facility]ORY - [place]ICINE [place] [facility] [place] [facility] Jan 21, 2025 10:15 AM [facility] [place] [facility] Jan 24, 2025 02:00 PM [facility] [place] [facility] Jan 24, 2025 03:30 PM AMBULATORY - MEDICINE [place] [facility] [place] [facility] Feb 02, 2025 08:15 AM [facility] [place] [facility] Feb 02, 2025 09:00 AM AMBULATORY - NONE [facility] [place] [facility] February 17, 2025 09:00 AM [facility] Social History: Smoking Status (Most current) [...] AM VA-TOBACCO NEVER U SED OTHER TYPE [facility] Tobacco Use History This section includes a history of the smoking, or tobacco-related health factors, that were collected on or before the date of the Encounter. The data comes from the [place] facility where the Encounter took place. Date/Time Smoking Status/Tobacco Use Comment F acility Sep 14, 2024 08:00 AM VA-TOBACCO SCREEN FOLLOW-UP [facility] [place] [facility] Sep 14, 2024 08:00 AM VA-TOBACCO USE ADVICE [facility] [place] [facility] Sep 14, 2024 08:00 AM VA-TOBACCO USE DIRECTOR MBA NO [facility] [place] [facility] Sep 14, 2024 08:00 AM VA-TOBACCO USE ОЛЕГ RY DAY CIGARETTES [facility] [place] [facility] Sep 14, 2024 08:00 AM VA-TOBACCO USE MED NO [facility] [place] [facility] Sep 04, 2023 01:14 PM VA-TOBACCO USE 30 YEARS OR MORE [facility] [place] [facility] Sep 04, 2023 01:14 PM VA-TOBACCO USE ADVICE [facility] [place] [facility] Sep 04, 2023 01:14 PM VA-TOBACCO USE DIRECTOR MBA NO [facility] [place] [facility] Sep 04, 2023 01:14 PM VA-TOBACCO USE MED NO [facility] [place] [facility] Sep 04, 2023 01:14 PM VA-TOBACCO USE WI 30 MIN OF WAKEUP [place] [facility] [place] [facility] Sep 04, 2023 01:14 PM VA-TOBACCO USER EVERY DAY [facility] [place] [facility] Oct 01, 2022 09:45 AM VA-TOBACCO DOESNT USE WI 30 MIN WAKEUP [facility] [place] [facility] Oct 01, 2022 09:45 AM VA-TOBACCO USE 30 YEARS OR MORE [facility] [place] [facility] Oct 01, 2022 09:45 AM VA-TOBACCO USE ADVICE [facility] [place] [facility] Oct 01, 2022 09:45 AM VA-TOBACCO USE DIRECTOR MBA NO [facility] [place] [facility] Oct 01, 2022 09:45 AM VA-TOBACCO USE MED NO [facility] [place] [facility] Oct 01, 2022 09:45 AM VA-TOBACCO USER EVERY DAY [facility] [place] [facility] Sep 07, 2021 10:30 AM VA-TOBACCO USE 30 YEARS OR MORE [facility] [place] [facility] Sep 07, 2021 10:30 AM VA-TOBACCO USE ADVICE [facility] [place] [facility] Sep 07, 2021 10:30 AM VA-TOBACCO USE DIRECTOR MBA NO [facility] [place] [facility] Sep 07, 2021 10:30 AM VA-TOBACCO USE MED NO [facility] [place] [facility] Sep 07, 2021 10:30 AM VA-TOBACCO USE [place] 30 MIN OF WAKEUP [facility] [place] [facility] Sep 07, 2021 10:30 AM VA-TOBACCO USER EVERY DAY [facility] [place] [facility] Jun 08, 2020 09:00 AM VA-TOBACCO USE 30 YEARS OR MORE [facility] [place] [facility] Jun 08, 2020 09:00 AM VA-TOBACCO USE ADVICE [facility] [place] [facility] Jun 08, 2020 09:00 AM VA-TOBACCO USE DIRECTOR MBA NO [facility] [place] [facility] Jun 08, 2020 09:00 AM VA-TOBACCO USE MED NO [facility] [place] [facility] Jun 08, 2020 09:00 AM VA-TOBACCO USE [place] 30 MIN OF WAKEUP [facility] [place] [facility] Jun 08, 2020 09:00 AM VA-TOBACCO USER EVERY DAY [facility] [place] [facility] Feb 01, 2019 02:27 PM VA-TOBACCO USE 30 YEARS OR MORE [facility] [place] [facility] Feb 01, 2019 02:27 PM VA-TOBACCO USE ADVICE [facility] [place] [facility] Feb 01, 2019 02:27 PM VA-TOBACCO USE DIRECTOR MBA NO [facility] [place] [facility] Feb 01, 2019 02:27 PM VA-TOBACCO USE MED NO [facility] [place] [facility] Feb 01, 2019 02:27 PM VA-TOBACCO USE [place] 30 MIN OF WAKEUP [facility] [place] [facility] Feb 01, 2019 02:27 PM VA-TOBACCO USER EVERY DAY [facility] [place] [facility] Apr 02, 2018 02:47 PM CURRENT SMOKER [facility] Apr 02, 2018 02:47 PM V1-PT DECLINES REF TO TOBACCO CESS PRGM [facility] Apr 02, 2018 02:47 PM V1-PT DECLINES TOB ACCO CESSATION MEDS [facility] Apr 02, 2018 02:47 PM V1-PT THINKING ABO UT QUIT TOBACCO USE [facility] Encounter Notes: All associated encounter notes [...] prior authorization drug request originated with a [facility] Care provider. Medication requested: REVEFENACIN 175MCG/3ML INHL SOLN 3ML Medication indication: Severe COPD Medical history relevant to this request: 69 y/o male followed by [facility] pulmonology. Recent 40+ pack-year smoker with severe COPD poorly controlled on inhaled bronchodilators. [place] recently denied acute exacerbations. Pulmonology believes sub [...] Spent: 5 minutes /lolly/ RORO SCHUMACHER PHARMD. Community [facility] Clinical Pharmacist Signed: 11/26/2024 11:47 Receipt Acknowledged By: 11/26/2024 12:23 /lolly/ SHERLYN FLEMING Sprinkler Fitter Apprentice RORO SCHUMACHER [facility] Nov 26, 2024 11:28 AM MEDICATION [...] criteria must be met. [X]Provider is a [place] or [facility] milk receiver or designated expert. [X]Moderate to severe COPD [...] of at least 2 on [employer] dyspnea scale, etc.) [?]Patient is unable to [...] a review of prescription refill history. *Per [place] medication history--adherent [ ]Patient has demonstrated correct [...] spent: 15 minutes /lolly/ RORO SCHUMACHER PHARMD. Community [facility] Clinical Pharmacist Signed: 11/26/2024 11:41 Receipt Acknowledged By: 11/26/2024 12:18 /lolly/ SHERLYN RASMUSSEN Sprinkler Fitter Apprentice RORO SCHUMACHER [facility]
--- OUTSIDE RECORDS SUMMARY | 2025-02-15 09:11 | XMS_ITS | Continuity of Care Document ---
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 cutting down from 5 cigars to 5 cigarettes [facility] Elevated blood-pressure reading without diagnosis of hypertension Active Condition [facility] HTN - Hypertension (SCT [id number]) Active Condition [facility] Hyperlipidemia (SCT 61257590) Active Condition Nov 06, 2018 Entered By: GIN BRADLEY Comment: address next visitDec 07, 2020 Entered By: GIN BRADLEY Comment: start atorvastatin 20mg qhs [facility] Hyponatremia Active Condition [facility] Hypothyroid Active Condition [facility] Long-term current use of anticoagulant Active Condition [facility] (631GE) Multiple nodules of lung Active Condition [facility] Osteoporosis Active Condition [facility] Polyp Colon (SCT 53233831) Active Condition Jun 04, 2019 Entered By: [...] [facility] Diagnosis: ICD-10-CM H53.143 Visual discomfort, bilateral Active Diagnosis [facility] Diagnosis: ICD-10-CM H25.813 Combined forms of age-related cataract, bilateral Active Diagnosis [facility] Diagnosis: ICD-10-CM E87.1 Hypo-osmolality and hyponatremia Active Diagnosis [facility] Diagnosis: ICD-10-CM Z79.01 MCC (current) use of anticoagulants Active Diagnosis [facility] (121GE) Diagnosis: ICD-10-CM R00.0 Tachycardia, unspecified Active Diagnosis [facility] Diagnosis: ICD-10-CM Z13.6 Encounter for screening for cardiovascular disorders Active Diagnosis [facility] Diagnosis: ICD-10-CM M81.0 Age-related osteoporosis w/o current pathological fracture Active Diagnosis [facility] Diagnosis: ICD-10-CM J44.9 Chronic obstructive pulmonary disease, unspecified Active Diagnosis [facility] Diagnosis: ICD-10-CM E03.9 Hypothyroidism, unspecified Active Diagnosis [facility] Diagnosis: ICD-10-CM R91.1 Solitary pulmonary nodule Active Diagnosis [facility] Medications Combined list of outpatient medications [...] G RESPIR ATORY (INHAL ATION) ACTIVE 09/15/2025 [id number] 5 SHERLYN BRADLEY 2024 3 [facility] ALBUTEROL 90MCG/ACTUA T (CFC-F) INHL,ORAL,8 .5GM DOSE COUNTER INHALE 2 PUFFS BY MOUTH EVERY 4 HOURS NEEDED FOR BREATHIN G RESPIR ATORY (INHAL ATION) DISCONT INUED 01/21/2025 [id number] 4 BERNARDINO NIELSEN 2023 3 [facility] ALBUTEROL 90MCG/ACTUA T (CFC-F) INHL,ORAL,8 .5GM DOSE COUNTER INHALE 2 PUFFS BY MOUTH EVERY 4 HOURS NEEDED RESPIR ATORY (INHAL ATION) DISCONT INUED 01/10/2024 [id number] 4 SHERLYN BRADLEY 2022 1 [facility] ALBUTEROL SO4 0.083% INHL,3ML INHALE 1 AMPULE IN NEBULIZE R EVERY 6 HOURS NEEDED FOR BREATHIN G RESPIR ATORY (INHAL ATION) ACTIVE 09/15/2025 [id number] 5 SHERLYN BRADLEY 2023 120 [facility] APIXABAN 5MG TAB TAKE ONE TABLET BY MOUTH EVERY 12 HOURS ORAL ACTIVE 02/19/2025 [id number] 5 SERGEI BINGHAM 2024 60 [place] [facility] ATORVASTATI N CA 40MG TAB TAKE ONE-HALF TABLET BY MOUTH ONCE DAILY FOR CHOLESTE ROL ORAL ACTIVE 09/15/2025 [id number] 5 SHERLYN BRADLEY 2023 45 [facility] ATORVASTATI N CA 40MG TAB TAKE ONE-HALF TABLET BY MOUTH ONCE DAILY FOR CHOLESTE ROL ORAL DISCONT INUED 09/11/2024 [id number] 4 SHERLYN BRADLEY 2022 45 [facility] CALCIUM 200MG (CA CITRATE-950 MG) TAB TAKE THREE TABLETS BY MOUTH TWICE DAILY ORAL DISCONT INUED 10/07/2024 [id number] 4 RILEY,AL ICE 2023 540 [facility] CALCIUM 200MG (CA CITRATE-950 MG) TAB TAKE THREE TABLETS BY MOUTH TWICE DAILY ORAL 12/13/2024 [id number] 4 SHERLYN BRADLEY 2023 540 [facility] CHOLECALCIF UNA 25MCG (1,000UNIT) TAB TAKE ONE TABLET BY MOUTH ONCE DAILY FOR VITAMIN SUPPLEME NTATION ORAL ACTIVE 02/04/2026 [id number] 5 SHERLYN BRADLEY 2024 90 [facility] CHOLECALCIF UNA 25MCG (1,000UNIT) TAB TAKE ONE TABLET BY MOUTH ONCE DAILY FOR VITAMIN SUPPLEME NTATION ORAL DISCONT INUED 12/13/2024 [id number] 4 SHERLYN BRADLEY 2023 90 [facility] CHOLECALCIF UNA 25MCG (1,000UNIT) TAB TAKE ONE TABLET BY MOUTH ONCE DAILY FOR VITAMIN SUPPLEME NTATION ORAL DISCONT INUED 10/07/2024 [id number] 4 RILEY,AL ICE 2023 90 [facility] [place] CHOLECALCIF UNA 25MCG (1,000UNIT) TAB TAKE ONE TABLET BY MOUTH ONCE DAILY FOR VITAMIN SUPPLEME NTATION ORAL 04/26/2024 [id number] 4 RILEY,AL ICE 2022 90 [facility] DEMECLOCYCL INE HCL 150MG TAB TAKE ONE TABLET BY MOUTH TWICE DAILY FOR INFECTIO N ORAL DISCONT INUED BY PROVIDE R 07/17/2025 [id number] 4 RILEY,AL ICE 2023 180 [facility] [place] DILTIAZEM (EQV-TIAZAC AB4) 180MG 24HR CAP TAKE ONE CAPSULE ONCE DAILY ACTIVE 02/19/2025 [id number] 5 SERGEI BINGHAM 2024 30 [facility] PTON FLUTICASONE 250MCG/SALM ETEROL 50MCG INHL,ORAL,D ISKUS,60 INHALE 1 PUFF BY MOUTH TWICE DAILY - RINSE MOUTH AFTER USE REPLAC ES SYMBICOR T (BUDESON NAVID/FORM OTEROL)* * RESPIR ATORY (INHAL ATION) ACTIVE 09/15/2025 [id number] 5 SHERLYN BRADLEY 2023 1 [facility] FLUTICASONE 250MCG/SALM ETEROL 50MCG INHL,ORAL,D ISKUS,60 INHALE 1 PUFF BY MOUTH TWICE DAILY - RINSE MOUTH AFTER USE REPLAC ES SYMBICOR T (BUDESON NAVID/FORM OTEROL)* * RESPIR ATORY (INHAL ATION) DISCONT INUED 12/04/2024 [id number] 4 SHERLYN BRADLEY 2023 1 [facility] FUROSEMIDE 40MG TAB TAKE ONE TABLET BY MOUTH ONCE DAILY TO REMOVE FLUID/CO NTROL BLOOD PRESSURE ORAL ACTIVE 12/14/2025 [id number] 5 ASAD GUERRERO BEATRICE 2024 30 [facility] FUROSEMIDE 40MG TAB TAKE ONE TABLET BY MOUTH ONCE DAILY TO REMOVE FLUID/CO NTROL BLOOD PRESSURE ORAL DISCONT INUED 10/19/2025 [id number] 5 ASAD GUERRERO BEATRICE 2024 30 [facility] [place] [facility] LEVOTHYROXI NE NA 88MCG TAB (SYNTHROID) TAKE ONE TABLET BY MOUTH EVERY MORNING 30 MINUTES BEFORE BREAKFAS T TAKE ON AN EMPTY STOMACH WITH A FULL GLASS OF WATER ORAL ACTIVE 09/15/2025 [id number] 4 SHERLYN BRADLEY 2023 90 [facility] [place] [facility] LEVOTHYROXI NE NA 88MCG TAB (SYNTHROID) TAKE ONE TABLET BY MOUTH EVERY MORNING 30 MINUTES BEFORE BREAKFAS T TAKE ON AN EMPTY STOMACH WITH A FULL GLASS OF WATER ORAL DISCONT INUED 12/29/2024 [id number] 4 SHERLYN BRADLEY 2023 90 [facility] [place] [facility] LISINOPRIL 30MG TAB TAKE ONE TABLET BY MOUTH ONCE DAILY TO CONTROL BLOOD PRESSURE NOTE NEW TABLET STRENGTH ORAL ACTIVE 09/15/2025 [id number] 4 SHERLYN BRADLEY 2023 90 [facility] LISINOPRIL 30MG TAB TAKE ONE TABLET BY MOUTH ONCE DAILY TO CONTROL BLOOD PRESSURE NOTE NEW TABLET STRENGTH ORAL DISCONT INUED 09/11/2024 [id number] 4 SHERLYN BRADLEY 2022 90 [facility] NAPROXEN 500MG TAB TAKE ONE TABLET BY MOUTH EVERY 12 HOURS NEEDED TAKE WITH FOOD; FOR PAIN/INF LAMMATIO N/SWELLI NG ORAL ACTIVE 03/13/2025 [id number] 4 SHERLYN BRADLEY 2023 60 [facility] OXYGEN MISCELLANEO US USE DIRECTED NOT APPLIC ABLE ACTIVE SHERLYN BRADLEY 2024 [facility] PREDNISONE 20MG TAB TAKE ONE TABLET BY MOUTH ONCE DAILY FOR ASTHMA ORAL 10/14/2024 [id number] 4 SHERLYN BRADLEY 2023 7 [facility] THEOPHYLLIN E 400MG 24HR TAB,SA TAKE ONE TABLET BY MOUTH ONCE DAILY ORAL ACTIVE 01/07/2026 [id number] 5 ASAD GUERRERO 2024 30 [facility] TIOTROPIUM 2.5MCG/ACTU AT INHL,ORAL,6 0D,4GM INHALE 2 PUFFS BY MOUTH ONCE DAILY THIS REPLACES TIOTROPI UM HANDIHAL ER CAPSULES RESPIR ATORY (INHAL ATION) ACTIVE 09/15/2025 [id number] 5 SHERLYN BRADLEY 2024 3 [facility] TIOTROPIUM 2.5MCG/ACTU AT INHL,ORAL,6 0D,4GM INHALE 2 PUFFS BY MOUTH ONCE DAILY THIS REPLACES TIOTROPI UM HANDIHAL ER CAPSULES RESPIR ATORY (INHAL ATION) DISCONT INUED 09/11/2024 [id number] 4 SHERLYN BRADLEY 2022 3 [facility] Allergies, Adverse Reactions, Alerts Combined list of allergies from Department of Defense and Veterans Affairs facilities. It does not include entries that were removed or entered in error. Substance Category Reaction Severity Reaction type Status Date Reported Comments Source HCTZ HYDROCHLOROTH IAZIDE Propensity to adverse reactions to drug (finding) active 8 [facility] Immunizations Combined list of available immunizations from the Department of Defense and Veterans Affairs facilities. 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 Status Comments Source COVID-19 (MODERNA), MRNA, LNP-S, PF, 50 MCG/0.5 ML (AGES 12+ YEARS) 2023 PADMINI BRASHERA RIGHT DELTO ID [id number] 312 complet ed Booster for Series, ADMINISTNathaniel [facility] INFLUENZA, HIGH-DOSE, TRIVALENT, PF 2023 RADHA ZHANG LEFT DELTO ID [id number] 135 complet ed Completed Series, ADMINISTNathaniel [facility] PNEUMOCOCCAL CONJUGATE PCV20, POLYSACCHARID E [id number] CONJUGATE, ADJUVANT, PF 2023 PADMINI BRASHER RIGHT DELTO ID [id number] 216 complet ed ADMINISTE [facility] COVID-19 (MODERNA), MRNA, LNP-S, PF, 50 MCG/0.5 ML (AGES 12+ YEARS) 2022 BARBARAPADMINI SAINI LEFT DELTO ID [id number] 312 complet ed Booster for Series, [facility]ISTE [facility] INFLUENZA, HIGH-DOSE, QUADRIVALENT 2022 FLORINDAPADMINI VIVAS RIGHT DELTO ID [id number] 197 complet ed ADMINISTE [facility] AT [facility] INFLUENZA VACCINE, QUADRIVALENT, ADJUVANTED 2021 BARBARALIZBETHISIDROPADMINI VIVAS RIGHT DELTO ID [id number] 205 complet ed Booster for Series, ADMINISTE [facility] AT [facility] INFLUENZA VACCINE, QUADRIVALENT, ADJUVANTED 2020 205 complet ed [facility] COVID-19 (MODERNA), MRNA, LNP-S, PF, 100 MCG OR 50 MCG DOSE 3 2020 207 complet ed [facility] COVID-19 (PFIZER), MRNA, LNP-S, PF, 30 MCG/0.3 ML DOSE 2 2020 208 complet ed PFR; [id number]; 1 [facility] COVID-19 (PFIZER), MRNA, LNP-S, PF, 30 MCG/0.3 ML DOSE 1 2020 208 complet ed PFR; [id number]; 1 [facility] ZOSTER RECOMBINANT 2 2019 187 complet ed [facility] INFLUENZA, TRIVALENT, ADJUVANTED 2019 168 complet ed [facility] ZOSTER RECOMBINANT 1 2019 187 complet ed [facility] INFLUENZA, INJECTABLE, QUADRIVALENT, PRESERVATIVE FREE 2018 150 complet ed Site: Left Deltoid [facility] [place] [facility] PNEUMOCOCCAL CONJUGATE PCV 13 2018 133 complet ed [facility] INFLUENZA, TRIVALENT, ADJUVANTED 2018 168 complet ed Site: Right Deltoid [facility] [place] [facility] PNEUMOCOCCAL POLYSACCHARID E [id number] 2017 33 complet ed [facility] [place] TDAP 2017 115 complet ed Site: Right [facility]id [facility] [place] Results Combined list of recent chemistry, hematology and other laboratory results from Department of Defense and Veterans Affairs, ranging from 15 months to all on record, depending upon the facility. Order Name Results Value Reference Range Date Interpretation Specimen Comments Source CALCIUM CALCIUM [MASS/VOLUM E] IN SERUM OR PLASMA 9.9 mg/dL 8.8 - 10 01/17 Specimen Type: SERUM No comment entered. Ordering Provider: JOSÉ RILEY Report Released Date/Time: Jul 18, 2024 06:58 PM Reporting Lab: [facility] [address] [facility] [address] Performing Lab: [facility] [address] [address] [facility] FREE T4 THYROXINE (T4) FREE [MASS/VOLUM E] IN SERUM OR PLASMA 1.29 ng/dL 0.70 - 1.48 01/17 Specimen Type: SERUM No comment entered. Ordering Provider: JOSÉ RILEY Report Released Date/Time: Jan 16, 2025 03:25 PM Reporting Lab: [facility] [address] [facility] [address] Performing Lab: [facility] [address] [facility] [address] [facility] VITAMIN D (25-OH) 25-HYDROXYV ITAMIN D3+25-HYDRO XYVITAMIN D2 [MASS/VOLUM E] IN SERUM OR PLASMA 46.2 ng/mL 20 - 50 01/17 Specimen Type: SERUM No comment entered. Ordering Provider: JOSÉ RILEY Report Released Date/Time: Jul 18, 2024 06:58 PM Reporting Lab: [place] [facility] [address] [facility] [facility] [address] Performing Lab: [facility] [address] [facility] [facility] [address] [facility] BASIC METABOLIC PANEL (non-fast ing) UREA NITROGEN [MASS/VOLUM E] IN SERUM OR PLASMA 39 mg/dL 8 - 26 01/17 H Specimen Type: SERUM No comment entered. Ordering Provider: JOSÉ RILEY Report Released Date/Time: Jul 18, 2024 06:58 PM Reporting Lab: [facility] [address] [facility] [address] Performing Lab: [facility] [address] [address] [facility]ITALRJ[facility]ITALTRN [facility] BASIC METABOLIC PANEL (non-fast ing) GLUCOSE [MASS/VOLUM E] IN SERUM OR PLASMA 109 mg/dL 65 - 100 01/17 H Specimen Type: SERUM No comment entered. Ordering Provider: JOSÉ RILEY Report Released Date/Time: Jul 18, 2024 06:58 PM Reporting Lab: [facility] [address] Performing Lab: [facility] [address] [facility]N [facility] BASIC METABOLIC PANEL (non-fast ing) SODIUM [MOLES/VOLU ME] IN SERUM OR PLASMA 140 mmol/L 136 - 145 01/17 Specimen Type: SERUM No comment entered. Ordering Provider: JOSÉ RILEY Report Released Date/Time: Jul 18, 2024 06:58 PM Reporting Lab: [place] [facility] [facility] [address] [facility] [address] Performing Lab: [place] [facility] [facility] [address] [facility] BASIC METABOLIC PANEL (non-fast ing) POTASSIUM [MOLES/VOLU ME] IN SERUM OR PLASMA 5.0 mmol/L 3.5 - 5.1 01/17 Specimen Type: SERUM No comment entered. Ordering Provider: JOSÉ RILEY Report Released Date/Time: Jul 18, 2024 06:58 PM Reporting Lab: [address] [address] Performing Lab: [facility] [address] [facility] [address] [facility] BASIC METABOLIC PANEL (non-fast ing) CHLORIDE [MOLES/VOLU ME] IN SERUM OR PLASMA 102 mmol/L 98 - 107 01/17 Specimen Type: SERUM No comment entered. Ordering Provider: JOSÉ RILEY Report Released Date/Time: Jul 18, 2024 06:58 PM Reporting Lab: [address] [address] Performing Lab: [facility]ITALN [address] [address] [facility] BASIC METABOLIC PANEL (non-fast ing) CARBON DIOXIDE, TOTAL [MOLES/VOLU ME] IN SERUM OR PLASMA 26 meq/L 23 - 31 01/17 Specimen Type: SERUM No comment entered. Ordering Provider: JOSÉ RILEY Report Released Date/Time: Jul 18, 2024 06:58 PM Reporting Lab: [facility] [address] [address] Performing Lab: [facility]N [address] [address] [facility] BASIC METABOLIC PANEL (non-fast ing) CALCIUM [MASS/VOLUM E] IN SERUM OR PLASMA 9.9 mg/dL 8.8 - 10 01/17 Specimen Type: SERUM No comment entered. Ordering Provider: JOSÉ RILEY Report Released Date/Time: Jul 18, 2024 06:58 PM Reporting Lab: [address] [address] Performing Lab: [facility]N [facility] [address] [facility] [address] [facility]N [facility] BASIC METABOLIC PANEL (non-fast ing) CREATININE [MASS/VOLUM E] IN SERUM OR PLASMA 1.46 mg/dL 0.72 - 1.25 01/17 H Specimen Type: SERUM No comment entered. Ordering Provider: JOSÉ RILEY Report Released Date/Time: Jul 18, 2024 06:58 PM Reporting Lab: [facility] [address] [facility] [address] Performing Lab: [facility] [address] [facility] [address] [facility] BASIC METABOLIC PANEL (non-fast ing) GLOMERULAR FILTRATION RATE/1.73 SQ M.PREDICTED [VOLUME RATE/AREA] IN SERUM, PLASMA OR BLOOD BY CREATININE- BASED FORMULA (CKD-EPI 2020) 51 mL/min 60 01/17 L Specimen Type: SERUM No comment entered. Ordering Provider: JOSÉ RILEY Report Released Date/Time: Jul 18, 2024 06:58 PM Reporting Lab: [facility] [address] [facility] [address] Performing Lab: [facility] [address] [facility] [address] [facility] BASIC METABOLIC PANEL (non-fast ing) UREA NITROGEN [MASS/VOLUM E] IN SERUM OR PLASMA 16 mg/dL 7 - 25 09/06 Specimen Type: SERUM No comment entered. Ordering Provider: JOSÉ RILEY Report Released Date/Time: Jul 16, 2024 02:39 PM Reporting Lab: [facility] [address] [facility] [address] Performing Lab: [facility] [address] [facility] [address] [facility] BASIC METABOLIC PANEL (non-fast ing) GLUCOSE [MASS/VOLUM E] IN SERUM OR PLASMA 87 mg/dL 65 - 100 09/06 Specimen Type: SERUM No comment entered. Ordering Provider: JOSÉ RILEY Report Released Date/Time: Jul 16, 2024 02:39 PM Reporting Lab: [place] [facility] [facility] [address] [facility] [address] Performing Lab: [place] [facility] [address] [facility] [address] [facility] BASIC METABOLIC PANEL (non-fast ing) SODIUM [MOLES/VOLU ME] IN SERUM OR PLASMA 137 mmol/L 135 - 145 09/06 Specimen Type: SERUM No comment entered. Ordering Provider: JOSÉ RILEY Report Released Date/Time: Jul 16, 2024 02:39 PM Reporting Lab: [place] [facility] [facility] [address] [facility] [address] Performing Lab: [place] [facility] [facility] [address] [facility] TRN [facility] BASIC METABOLIC PANEL (non-fast ing) POTASSIUM [MOLES/VOLU ME] IN SERUM OR PLASMA 4.6 mmol/L 3.5 - 5.0 09/06 Specimen Type: SERUM No comment entered. Ordering Provider: JOSÉ RILEY Report Released Date/Time: Jul 16, 2024 02:39 PM Reporting Lab: [place] [facility] [facility] [address] [facility] [address] Performing Lab: [place] [facility] [facility] [address] [facility] BASIC METABOLIC PANEL (non-fast ing) CHLORIDE [MOLES/VOLU ME] IN SERUM OR PLASMA 97 mmol/L 100 - 110 09/06 L Specimen Type: SERUM No comment entered. Ordering Provider: JOSÉ RILEY Report Released Date/Time: Jul 16, 2024 02:39 PM Reporting Lab: [place] [facility] [facility] [address] [facility] [address] Performing Lab: [place] [facility] [facility]ITAL[facility]ETS [address] [address] [facility] BASIC METABOLIC PANEL (non-fast ing) CARBON DIOXIDE, TOTAL [MOLES/VOLU ME] IN SERUM OR PLASMA 27 meq/L 20 - 30 09/06 Specimen Type: SERUM No comment entered. Ordering Provider: JOSÉ RILEY Report Released Date/Time: Jul 16, 2024 02:39 PM Reporting Lab: [address] [address] Performing Lab: [address] [address] [facility] BASIC METABOLIC PANEL (non-fast ing) CREATININE [MASS/VOLUM E] IN SERUM OR PLASMA 0.89 mg/dL 0.50 - 1.40 09/06 Specimen Type: SERUM No comment entered. Ordering Provider: JOSÉ RILEY Report Released Date/Time: Jul 16, 2024 02:39 PM Reporting Lab: [address] [address] Performing Lab: [address] [address] [facility] BASIC METABOLIC PANEL (non-fast ing) GLOMERULAR FILTRATION RATE/1.73 SQ M.PREDICTED [VOLUME RATE/AREA] IN SERUM, PLASMA OR BLOOD BY CREATININE- BASED FORMULA (CKD-EPI 2020) >90mL/ min 60 09/06 Specimen Type: SERUM No comment entered. Ordering Provider: JOSÉ RILEY Report Released Date/Time: Jul 16, 2024 02:39 PM Reporting Lab: [address] [address] Performing Lab: [address] [address] [facility] CBC LEUKOCYTES [#/VOLUME] IN BLOOD BY AUTOMATED COUNT 7.38 10*3/u L 4.50 - 11.00 09/06 Specimen Type: BLOOD No comment entered. Ordering Provider: BETSY BRADLEY Report Released Date/Time: Sep 01, 2024 12:06 PM Reporting Lab: [facility] [place] [facility] [address] [facility] [address] Performing Lab: [facility] [place] [facility] [address] [facility] [address] [facility] [place] [facility] CBC ERYTHROCYTE S [#/VOLUME] IN BLOOD BY AUTOMATED COUNT 5.30 10*6/u L 4.23 - 5.66 09/06 Specimen Type: BLOOD No comment entered. Ordering Provider: BETSY BRADLEY Report Released Date/Time: Sep 01, 2024 12:06 PM Reporting Lab: [facility] [place] [facility] [address] [facility] [address] Performing Lab: [facility] [place] [facility] [address] [facility] [address] [facility] [place] [facility] CBC HEMOGLOBIN [MASS/VOLUM E] IN BLOOD 17.9 g/dL 12.8 - 17 09/06 H Specimen Type: BLOOD No comment entered. Ordering Provider: BETSY BRADLEY Report Released Date/Time: Sep 01, 2024 12:06 PM Reporting Lab: [facility] [place] [facility] [address] [facility] [address] Performing Lab: [facility] [place] [facility] [address] [facility] [address] [facility] [place] [facility] CBC HEMATOCRIT [VOLUME FRACTION] OF BLOOD BY AUTOMATED COUNT 49.7 39.2 - 50.4 09/06 Specimen Type: BLOOD No comment entered. Ordering Provider: BETSY BRADLEY Report Released Date/Time: Sep 01, 2024 12:06 PM Reporting Lab: [facility] [place] [facility] [address] [facility] [address] Performing Lab: [facility] [place] [facility] [address] [facility] [address] [facility] [place] [facility] CBC MCV [ENTITIC VOLUME] BY AUTOMATED COUNT 93.8 fL 82 - 99 09/06 Specimen Type: BLOOD No comment entered. Ordering Provider: BETSY BRADLEY Report Released Date/Time: Sep 01, 2024 12:06 PM Reporting Lab: [facility] [place] [facility] [address] [facility] [address] Performing Lab: [facility] [address] [facility] [address] [facility] CBC MCHC [MASS/VOLUM E] BY AUTOMATED COUNT 36.0 g/dL 30.8 - 35.1 09/06 H Specimen Type: BLOOD No comment entered. Ordering Provider: BETSY BRADLEY Report Released Date/Time: Sep 01, 2024 12:06 PM Reporting Lab: [facility] [place] [facility] [address] [facility] [address] Performing Lab: [facility] [place] [facility] [address] [facility] [address] [facility] CBC PLATELETS [#/VOLUME] IN BLOOD BY AUTOMATED COUNT 150 10*3/u L 140 - 360 09/06 Specimen Type: BLOOD No comment entered. Ordering Provider: BETSY BRADLEY Report Released Date/Time: Sep 01, 2024 12:06 PM Reporting Lab: [facility] [place] [facility] [address] [facility] [address] Performing Lab: [facility] [place] [facility] [address] [facility] [address] [facility] [place] CBC ERYTHROCYTE DISTRIBUTIO N WIDTH [RATIO] BY AUTOMATED COUNT 12.8 12.0 - 16.0 09/06 Specimen Type: BLOOD No comment entered. Ordering Provider: BETSY BRADLEY Report Released Date/Time: Sep 01, 2024 12:06 PM Reporting Lab: [facility] [place] [facility] [address] [facility] [address] Performing Lab: [facility] [place] [facility] [address] [facility] [address] [facility] [place] CBC MCH [ENTITIC MASS] BY AUTOMATED COUNT 33.8 pg 26.2 - 32.6 09/06 H Specimen Type: BLOOD No comment entered. Ordering Provider: BETSY BRADLEY Report Released Date/Time: Sep 01, 2024 12:06 PM Reporting Lab: [facility] [place] [facility] [address] [facility] [address] Performing Lab: [facility] [address] [facility] [address] [facility] [place] LIVER FUNCTION PROTEIN [MASS/VOLUM E] IN SERUM OR PLASMA 7.1 g/dL 6.0 - 8.3 09/06 Specimen Type: SERUM No comment entered. Ordering Provider: BETSY BRADLEY Report Released Date/Time: Sep 01, 2024 12:06 PM Reporting Lab: [facility] [place] [facility] [address] [facility] [address] Performing Lab: [facility] [place] [facility] [address] [facility] [address] [place] [facility] [place] [facility] LIVER FUNCTION ALBUMIN [MASS/VOLUM E] IN SERUM OR PLASMA 3.9 g/dL 3.5 - 5.0 09/06 Specimen Type: SERUM No comment entered. Ordering Provider: BETSY BRADLEY Report Released Date/Time: Sep 01, 2024 12:06 PM Reporting Lab: [facility] [place] [address] [address] Performing Lab: [facility] [place] [facility] [address] [facility] [address] [facility] [place] LIVER FUNCTION ALKALINE PHOSPHATASE [ENZYMATIC ACTIVITY/VO LUME] IN SERUM OR PLASMA 116 U/L 40 - 150 09/06 Specimen Type: SERUM No comment entered. Ordering Provider: BETSY BRADLEY Report Released Date/Time: Sep 01, 2024 12:06 PM Reporting Lab: [facility] [place] [facility] [address] [facility] [address] Performing Lab: [facility] [place] [facility] [address] [facility] [address] [facility] [place] [facility] LIVER FUNCTION ASPARTATE AMINOTRANSF ERASE [ENZYMATIC ACTIVITY/VO LUME] IN SERUM OR PLASMA 38 U/L 5 - 34 09/06 H Specimen Type: SERUM No comment entered. Ordering Provider: BETSY BRADLEY Report Released Date/Time: Sep 01, 2024 12:06 PM Reporting Lab: [facility] [place] [address] [address] Performing Lab: [facility] [place] [facility] [address] [facility] [address] [facility] [place] LIVER FUNCTION ALANINE AMINOTRANSF ERASE [ENZYMATIC ACTIVITY/VO LUME] IN SERUM OR PLASMA 29 U/L 09/06 Specimen Type: SERUM No comment entered. Ordering Provider: BETSY BRADLEY Report Released Date/Time: Sep 01, 2024 12:06 PM Reporting Lab: [facility] [place] [address] [address] Performing Lab: [facility] [place] [address] [address] [place] [facility] [facility] LIVER FUNCTION BILIRUBIN.T OTAL [MASS/VOLUM E] IN SERUM OR PLASMA 1.2 mg/dL 0.2 - 1.2 09/06 Specimen Type: SERUM No comment entered. Ordering Provider: BETSY BRADLEY Report Released Date/Time: Sep 01, 2024 12:06 PM Reporting Lab: [facility] [place] [address] [address] Performing Lab: [facility] [place] [address] [address] [place] [facility] [place] [facility] LIVER FUNCTION BILIRUBIN.D IRECT [MASS/VOLUM E] IN SERUM OR PLASMA 0.6 mg/dL 0 - 0.5 09/06 H Specimen Type: SERUM No comment entered. Ordering Provider: BETSY BRADLEY Report Released Date/Time: Sep 01, 2024 12:06 PM Reporting Lab: [facility] [place] [address] [address] Performing Lab: [facility] [place] [facility] [address] [facility] [address] [facility] [facility] LIPID PANEL, NON FASTING CHOLESTEROL [MASS/VOLUM E] IN SERUM OR PLASMA 154 mg/dL 09/06 Specimen Type: SERUM No comment entered. Ordering Provider: BETSY BRADLEY Report Released Date/Time: Sep 01, 2024 12:06 PM Reporting Lab: [facility] [place] [facility] [address] [facility] [address] Performing Lab: [place] [facility] [place] [facility] [address] [facility] [address] [facility] MASSUSE [facility] LIPID PANEL, NON FASTING TRIGLYCERID E [MASS/VOLUM E] IN SERUM OR PLASMA 71 mg/dL 0 - 150 09/06 Specimen Type: SERUM No comment entered. Ordering Provider: BETSY BRADLEY Report Released Date/Time: Sep 01, 2024 12:06 PM Reporting Lab: [facility] [place] [place] [facility] [address] [facility] [address] Performing Lab: [facility] [place] [place] [address] [address] [facility]N [facility] LIPID PANEL, NON FASTING CHOLESTEROL IN LDL [MASS/VOLUM E] IN SERUM OR PLASMA BY CALCULATION 67 mg/dL 0 - 129 09/06 Specimen Type: SERUM No comment entered. Ordering Provider: BETSY BRADLEY Report Released Date/Time: Sep 01, 2024 12:06 PM Reporting Lab: [facility] [place] [facility] [address] [facility] [address] Performing Lab: [facility] [place] [place] [address] [address] [facility] [place] [facility] LIPID PANEL, NON FASTING CHOLESTEROL .TOTAL/CHOL ESTEROL IN HDL [MASS RATIO] IN SERUM OR PLASMA 2.1 09/06 Specimen Type: SERUM No comment entered. Ordering Provider: BETSY BRADLEY Report Released Date/Time: Sep 01, 2024 12:06 PM Reporting Lab: [facility] [address] [facility] [address] Performing Lab: [facility] [address] [facility] [address] [facility] LIPID PANEL, NON FASTING CHOLESTEROL IN HDL [MASS/VOLUM E] IN SERUM OR PLASMA 73 mg/dL 40 - 60 09/06 H Specimen Type: SERUM No comment entered. Ordering Provider: BETSY BRADLEY Report Released Date/Time: Sep 01, 2024 12:06 PM Reporting Lab: [facility] [address] [facility] [address] Performing Lab: [address] [address] [facility] COPEPTIN COPEPTIN 7.3 07/14 Specimen Type: SERUM Comment: REFERENCE RANGE: <= 13.7 pmol/L This test was developed and its analytical performance characteris tics have been determined by [employer] . It has not been cleared or approved by FDA. This assay has been validated pursuant to the CLIA regulations and is used for clinical purposes. Test performed by [employer] [address] [address] Phone: Storage Consultant: Estela Barlow MD,PHD,PATSY Test Reported by [facility], [facility], [address] [place], [place] Seamus Joseph M.D., Ph.D., Director of Laboratorie s , CLIA [id number] TEST PERFORMED AT: , Ordering Provider: JOSÉ RILEY Report Released Date/Time: Jul 13, 2024 09:00 AM Reporting Lab: [address] [address] Performing Lab: [facility] [address] [facility], [address] [place] [address] [facility] OSMOLALIT Y (SERUM) OSMOLALITY OF SERUM OR PLASMA 267 280 - 300 07/14 L Specimen Type: SERUM Comment: Manually entered by: RTO Ordering Provider: JOSÉ RILEY Report Released Date/Time: Jul 13, 2024 09:00 AM Reporting Lab: [facility] [address] [facility] [address] Performing Lab: [facility] [address] [facility] [address] [facility] Vital Signs Combined list of inpatient and outpatient Vital Signs from Department of Defense and Veterans Affairs, ranging from 12 months to all on record, depending upon the facility. Vital Sign Value Date Comments Source SYSTOLIC BLOOD PRESSURE 101 01/21/20 25 07:59:58 [facility] DIASTOLIC BLOOD PRESSURE 67 025 07:59:58 [facility] PULSE OXIMETRY 96 01/20/2025 07:59:58 [facility] WEIGHT 205 01/20/2025 07:59:58 [facility] BMI 31 kg/m2 01/20/2025 07:59:58 [facility] PAIN 0 01/20/2025 07:59:58 [facility] HEIGHT 68 01/20/2025 07:59:58 [facility] TEMPERATURE 98.1 01/20/2025 07:59:58 [facility] PULSE 160 01/20/2025 07:59:58 [facility] RESPIRATION 16 01/20/2025 07:59:58 [facility] SYSTOLIC BLOOD PRESSURE 148 09/14/20 24 07:53:09 [...] 03/12/2024 07:59:22 [facility] Encounters Combined list of: 1) Encounters from Department of Veterans Affairs facilities going backup to the last 18 months, not all [place] inpatient encounters are included; 2) Encounters from the Department of Defense facilities going backup to 280 months. Location Location Details Encounter Type Encounter Number Reason For Visit Attending Provider ADM Date DC Date Status Disposition Source [facility] [place] Outpatient Encounter [id number] 09/04 [facility] [place] [facility] [place] [facility] OFFICE O/P EST LOW 20-29 MIN [id number] Diagnos is: ICD-10- CM R91.1 Solitar y pulmona ry Meseret Iyer 09/11 [facility] [place] [facility] [place] [facility] Outpatient Encounter [id number] 10/04 [facility] [place] OFFICE O/P EST HI 40 MIN [id number] Diagnos is: ICD-10- CM 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/o current patholo gical fractsierra e RHONDA RILEY 10/23 [facility] [place] [facility] Out[facility] En[facility] [id number] 10/25 [facility] Encounter [id number] 11/04 [facility] [id number] Diagnos is: ICD-10- CM 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 ADRIENNE SEVILLAP Coleen Nilay 11/04 [facility] Out[facility] Encounter [id number] 11/18 [facility] Encounter [id number] Diagnos is: ICD-10- CM 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 RHONDA RILEY 11/19 [facility] En[facility] [id number] [facility] Encounter [id number] 12/28 [facility] Encounter [id number] 12/28 [facility] Encounter [id number] 12/29 [facility] OFFICE O/P EST MOD 30 MIN [id number] Diagnos is: ICD-10- CM 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 RHONDA RILEY 01/20 [facility] En[facility] [id number] 01/20 [facility] Encounter [id number] 01/24 [facility] En[facility] [id number] 03/04 [facility] OFFICE O/P EST LOW 20 MIN [id number] Diagnos is: ICD-10- CM R91.1 Solitar y pulmona ry nodule Meseret BRADLEY 03/12 [facility] En[facility] [id number] 03/24 [facility] Encounter [id number] 04/01 [facility] Encounter [id number] 07/13 [facility] Out[facility] Encounter [id number] Diagnos is: ICD-10- CM 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 RHONDA Lao 07/13 [facility] Encounter [id number] 07/16 [facility] OFFICE O/P EST MOD 30 MIN [id number] Diagnos is: ICD-10- CM 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 RHONDA RILEY 07/22 [facility] [place] ADMIN [id number] Diagnos is: ICD-10- CM E03.9 Hypothy roidism , unspeci fied EDILMA ZHANG 07/22 [facility] En[facility] [id number] 09/08 [facility] [place] OFFICE O/P [place] HI 40 MIN [id number] 1. Diagnos is: ICD-10- CM J44.9 Chronic obstruc tive pulmona ry disease , unspeci fied Meseret BRADLEYESTEFANISherry Garay 09/14 [facility] En[facility] [id number] 09/14 [facility] HC PRO PHONE CALL 11-20 MIN [id number] Diagnos is: ICD-10- CM J44.9 Chronic obstruc tive pulmona ry disease , unspeci fied JARMOLOWIC Z,ITA 09/17 [facility] En[facility] [id number]/18 [facility] Encounter [id number] 10/18 [facility] Encounter [id number] 11/25 [facility] NQHP OL DIG ASSMT&MGMT 11-20 [id number] Diagnos is: ICD-10- CM J44.9 Chronic obstruc tive pulmona ry disease , unspeci fied SOVEROW,CH RISTY A 11/26 [facility] En[facility] [id number] 12/13 [facility] En[facility] [id number]/27 [facility] Encounter [id number] 01/06 [facility] MTMS BY PHARM FLORICULTURIST 15 MIN [id number] Diagnos is: ICD-10- CM J44.9 Chronic obstruc tive pulmona ry disease , unspeci fied GDULA,JEANINE A 01/06 [facility] En[facility] [id number] 01/20 [facility] Encounter [id number] 01/20 [facility] OFFICE O/P EST MOD 30 MIN [id number] Diagnos is: ICD-10- CM 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 RHONDA RILEY 01/20 [facility] [place] ELECTROCAR DIOGRAM REPORT [id number] Diagnos is: ICD-10- CM Z13.6 Encount er for screeni ng for cardiov ascular disorde RAY Parra 01/20 [facility] Out[facility] Encounter [id number] 01/20 [facility] Encounter [id number]/20 [facility] [place] ELECTROCAR DIOGRAM TRACING [id number] Diagnos is: ICD-10- CM R00.0 Tachyca rdia, unspeci fied REZA,GR MY 01/20 [facility] [place] [facility] En[facility] [id number] 1.01/21 [facility] [place] [facility] [place] Outpatient Encounter [id number] 1.01/21 [facility] [place] [facility] (631[facility]) MTMS BY PHARM EST 15 MIN [id number] Diagnos is: ICD-10- CM Z79.01 continuous churn buttermaker (curren t) use of anticoa gulants JYOTI,ALB ERT GOLDIE 01/21 [facility]89[facility]) [facility] PH1 ASSMT&MGMT NQHP 5-10 [id number] 1. Diagnos is: ICD-10- CM 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 remEDILMA Wen 01/24 [facility] [place] [place] [id number] Diagnos is: ICD-10- CM H25.813 Combine d forms of age-rel ated catarac t, karma al LEONEL,AN AMARILIS E 01/24 [facility] CPTRZ OPH DX IMG PST SGM RTA [id number] Diagnos is: ICD-10- CM H53.143 Visual discomf ort, karma omalley LEONEL,AN AMARILIS E 01/24 [facility] Outpatient Encounter [id number] 02/02 [facility] [place] [id number] Diagnos is: ICD-10- CM 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 Social History Type Response Date Comment Sourc e Tobacco smoking status [place] VA-TOBACCO NEVER USED OTHER TYPE 09/14/2024 [facility] History of tobacco use VA-TOBACCO SCREEN FOLLOW-UP 09/14/2024 [facility] History of tobacco use VA-TOBACCO USER EVERY DAY 09/04/2023 [facility] History of tobacco use VA-TOBACCO DOESNT USE WI 30 MIN WAKEUP 10/01/2022 [facility] History of tobacco use VA-TOBACCO USER EVERY DAY 09/07/2021 [facility] History of tobacco use [place]-TO[place]ACCO USER EVERY DAY 06/08/2020 [facility] History of tobacco use [place]-TO[place] USE MED NO 02/01/[facility] of tobacco use CURRENT SMOKER 04/02/2018 [facility] Plan of Care List of future care activities from Department of Veterans Affairs facilities. Additional future care activities may be listed in the Assessment and Plan section. Date/Time Care Activity Care Activity Detail Facili ty 02/17/2025 AMBULATORY - MEDICINE AMBULATORY - MEDICI [facility]
--- OUTSIDE RECORDS SUMMARY | 2025-02-15 09:11 | XMS_ITS ---
Author Name [facility] ([place]) Organization [facility] ([place]) Address [address] [place] [id number] Care Team Providers Care Lead Clinical Research Coordinator Name Role Phone SHERLYN LENTZ [facility] Insurance Providers: All historical and [...] PART B Apr 05, 2020 PART B [id number] MIGUELITOCOCO FRANKLINNDER PATIENT MEDICARE (WNR) MEDICARE (M) PART A Mar 06, 2019 PART A [id number] COCO FARLEYER PATIENT Selected Encounter This section includes the information on record at OR for the Encounter. Date/Time Encounter Type Encounter Description Reason Provider Source Sep 14, 2024 08:00 AM OFFICE O/P EST HI 40 MIN PRIMARY CARE/MEDICINE ICD-10-CM J44.9 Chronic obstructive pulmonary disease, unspecified PHILLIP LENTZ AM Encounter Template Text not used by OR Assessments - Encounter Diagnoses This section includes the primary and secondary diagnoses documented for the Encounter. Date/Time Primary/Secondary Diagnosis Diagnosis Name Provider Source Sep 14, 2024 10:22 AM PRIMARY Chronic obstructive pulmonary disease, unspecified [facility] Sep 14, 2024 10:22 AM SECONDARY Age-related osteoporosis w/o current pathological fracture [facility]ENTZ[facility] Sep 14, 2024 10:22 AM SECONDARY Benign neoplasm of pituitary gland [facility] Sep 14, 2024 10:22 AM SECONDARY Dyspnea, unspecified [facility]ENTZ[facility] Sep 14, 2024 10:22 AM SECONDARY Encounter for [facility] Sep 14, 2024 10:22 AM SECONDARY Encounter for screening for other disorder [facility]ENTZ[facility] Sep 14, 2024 10:22 AM SECONDARY Essential (primary) hypertension LENTZ[facility] Sep 14, 2024 10:22 AM SECONDARY Hyperlipidemia, unspecified LENTZ[facility] Sep 14, 2024 10:22 AM SECONDARY Hypo-osmolality and hyponatremia LENTZ,[facility] Sep 14, 2024 10:22 AM SECONDARY Hypothyroidism, unspecified LENTZ,[facility] Sep 14, 2024 10:22 AM SECONDARY Solitary pulmonary nodule LENTZ,[facility] Sep 14, 2024 10:22 AM SECONDARY Tobacco abuse counseling LENTZ,[facility] Sep 14, 2024 10:22 AM SECONDARY Tobacco use LENTZ,[facility] Plan of Treatment: Future Appointments (+ 6 months) and Future Tests (+/- 45 days) The Plan of Treatment section includes future care activities for the patient from all OR treatmentfacilities. This section includes future appointments and [...] 18, 2024 09:45 AM AMBULATORY - MEDICINE [facility] [place] [facility] Oct 21, 2024 08:30 AM AMBULATORY - NONE [facility] [place] [facility] Jan 06, 2025 10:30 AM AMBULATORY - MEDICINE [facility] [place] [facility] Jan 20, 2025 08:00 AM AMBULATORY - MEDICINE [facility] [place] [facility] Jan 20, 2025 09:15 AM AMBULATORY - MEDICINE [place] [facility] [place] [facility] Jan 21, 2025 10:15 AM AMBULATORY - NONE [facility] [place] [facility] Jan 24, 2025 02:00 PM AMBULATORY - MEDICINE [place] [facility] [place] [facility] Jan 24, 2025 03:30 PM AMBULATORY - MEDICINE [place] [facility] [place] [facility] Feb 02, 2025 08:15 AM AMBULATORY - NONE [facility] [place] [facility] Feb 02, 2025 09:00 AM AMBULATORY - NONE [facility] [place] [facility] February 17, 2025 09:00 AM AMBULATORY - MEDICINE [place] [facility] [place] [facility] Lab Results: +/- 30 days of the encounter This section includes the Chemistry and Hematology Lab Results on record with OR for the patient. Radiology Reports and Pathology Reports are provided separately, in subsequent sections. Lab Results This section contains the Chemistry/Hematology Results that were resulted 30 days before or 30 daysafter the date of the Encounter. Date/Time Source Result Type Result - Unit Interpretation Reference Range Specimen Type Comment Sep 06, 2024 09:52 AM [facility] [place] [facility] BASIC METABOLIC PANEL (non-fasting) SERUM Spe cimen Type: SERUM No comment entered. Ordering Provider: JEEVAN RILEY Report Released Date/Time: Jul 16, 2024 02:39 PM Reporting Lab: [place] [facility] [place] [address] [address] Performing Lab: OR [address] [address] UREA NITROGEN 16 mg/dL 7-25 GLUCOSE 87 mg/dL 65-100 SODIUM 137 mmol/L 135-145 POTASSIUM 4.6 mmol/L 3.5-5.0 CHLORIDE 97 mmol/L L 100-110 CO2 27 meq/L 20-30 CREATININE, Serum 0.89 mg/dL 0.50-1.40 eGFR(CKD-EPI 2020) >90 mL/min >60 Sep 06, 2024 09:51 AM [facility] LIPID PANEL, NON FASTING SERUM Specimen Type: SERUM No comment entered. Ordering Provider: SHERLYN LENTZ Report Released Date/Time: Sep 01, 2024 12:06 PM Reporting Lab: [address] [address] Performing Lab: [address] [address] CHOLESTEROL 154 mg/dL TRIGLYCERIDE 71 mg/dL 0-150 LDL calculated 67 mg/dL 0-129 CHOL/HDL 2.1 HDL CHOLESTEROL 73 mg/dL H 40-60 Sep 06, 2024 09:51 AM [facility] CBC BLOOD Specimen Type: BLOOD No comment entered. Ordering Provider: SHERLYN LENTZ Report Released Date/Time: Sep 01, 2024 12:06 PM Reporting Lab: [address] [address] Performing Lab: [address] [address] WBC 7.38 10*3/uL 4.50-11.00 RBC 5.30 10*6/uL 4.23-5.66 HGB 17.9 g/dL H 12.8-17 HCT 49.7 39.2-50.4 MCV 93.8 fL 82-99 MCHC 36.0 g/dL H 30.8-35.1 PLT 150 10*3/uL 140-360 RDW-CV 12.8 12.0-16.0 MCH 33.8 pg H 26.2-32.6 Sep 06, 2024 09:51 AM [facility] LIVER FUNCTION SERUM Specimen Type: SERUM No comment entered. Ordering Provider: SHERLYN LENTZ Report Released Date/Time: Sep 01, 2024 12:06 PM Reporting Lab: [facility] [address] [facility] [address] Performing Lab: [facility] [address] [facility] [address] PROTEIN,TOTAL 7.1 g/dL 6.0-8.3 ALBUMIN 3.9 g/dL [...] Source Sep 14, 2024 08:51 AM 130/80 [facility] Sep 14, 2024 07:53 AM 98.3 9 148/79 20 90 0 68 201 31 [facility] Immunizations: All administered on the encounter date This section contains immunizations associated to the Encounter. Immunization Series Date Issued Administered By Site Reaction Lot Number CVX Code Drug Vamp Creaser Comment(s) Source COVID-19 (MODERNA), MRNA, LNP-S, PF, 50 MCG/0.5 ML (AGES 12+ YEARS) Sep 14, 2024 PADMINI JADE RIGHT DELTO ID [id number] [employer] Booster for Series, ADMINISTERE D AT OR, [facility] Social History: Smoking Status (Most current) and [...] Current Smoking Status Comment Dinesh welch Sep 14, 2024 08:00 AM OR-TOBACCO USE ОЛЕГ RY DAY CIGARETTES [facility] [place] [facility] Tobacco Use History This section includes a history of the smoking, or tobacco-related health factors, that were collected on or before the date of the Encounter. The data comes from the OR facility where the Encounter took place. Date/Time Smoking Status/Tobacco Use Comment F acility Sep 14, 2024 08:00 AM VA-TOBACCO SCREEN FOLLOW-UP [facility] [place] [facility] Sep 14, 2024 08:00 AM VA-TOBACCO USE ADVICE [facility] [place] [facility] Sep 14, 2024 08:00 AM VA-TOBACCO USE BILINGUAL TEACHER NO [facility] [place] [facility] Sep 14, 2024 08:00 AM VA-TOBACCO USE ОЛЕГ RY DAY CIGARETTES [facility] [place] [facility] Sep 14, 2024 08:00 AM VA-TOBACCO USE MED NO [facility] [place] [facility] Sep 04, 2023 01:14 PM VA-TOBACCO USE 30 YEARS OR MORE [facility] [place] [facility] Sep 04, 2023 01:14 PM VA-TOBACCO USE ADVICE [facility] [place] [facility] Sep 04, 2023 01:14 PM VA-TOBACCO USE BILINGUAL TEACHER NO [facility] [place] [facility] Sep 04, 2023 01:14 PM VA-TOBACCO USE MED NO [facility] [place] [facility] Sep 04, 2023 01:14 PM VA-TOBACCO USE WI 30 MIN OF WAKEUP [facility] [place] [facility] Sep 04, 2023 01:14 PM VA-TOBACCO USER EVERY DAY [facility] [place] [facility] Oct 01, 2022 09:45 AM VA-TOBACCO DOESNT USE WI 30 MIN WAKEUP [facility] [place] [facility] Oct 01, 2022 09:45 AM VA-TOBACCO USE 30 YEARS OR MORE [facility] [place] [facility] Oct 01, 2022 09:45 AM VA-TOBACCO USE ADVICE [facility] [place] [facility] Oct 01, 2022 09:45 AM VA-TOBACCO USE BILINGUAL TEACHER NO [facility] [place] [facility] Oct 01, 2022 09:45 AM VA-TOBACCO USE MED NO [facility] [place] [facility] Oct 01, 2022 09:45 AM VA-TOBACCO USER EVERY DAY [facility] [place] [facility] Sep 07, 2021 10:30 AM VA-TOBACCO USE 30 YEARS OR MORE [facility] [place] [facility] Sep 07, 2021 10:30 AM VA-TOBACCO USE ADVICE [facility] [place] [facility] Sep 07, 2021 10:30 AM VA-TOBACCO USE BILINGUAL TEACHER NO [facility] [place] [facility] Sep 07, 2021 10:30 AM VA-TOBACCO USE MED NO [facility] [place] [facility] Sep 07, 2021 10:30 AM VA-TOBACCO USE [place] 30 MIN OF WAKEUP [facility] [place] [facility] Sep 07, 2021 10:30 AM VA-TOBACCO USER EVERY DAY [facility] [place] [facility] Jun 08, 2020 09:00 AM VA-TOBACCO USE 30 YEARS OR MORE [facility] [place] [facility] Jun 08, 2020 09:00 AM VA-TOBACCO USE ADVICE [facility] [place] [facility] Jun 08, 2020 09:00 AM VA-TOBACCO USE BILINGUAL TEACHER NO [facility] [place] [facility] Jun 08, 2020 09:00 AM VA-TOBACCO USE MED NO [facility] [place] [facility] Jun 08, 2020 09:00 AM VA-TOBACCO USE [place] 30 MIN OF WAKEUP [facility] [place] [facility] Jun 08, 2020 09:00 AM VA-TOBACCO USER EVERY DAY [facility] [place] [facility] Feb 01, 2019 02:27 PM VA-TOBACCO USE 30 YEARS OR MORE [facility] [place] [facility] Feb 01, 2019 02:27 PM VA-TOBACCO USE ADVICE [facility] [place] [facility] Feb 01, 2019 02:27 PM VA-TOBACCO USE BILINGUAL TEACHER NO [facility] [place] [facility] Feb 01, 2019 02:27 PM VA-TOBACCO USE MED NO [facility] [place] [facility] Feb 01, 2019 02:27 PM VA-TOBACCO USE [place] 30 MIN OF WAKEUP [facility] [place] [facility] Feb 01, 2019 02:27 PM [facility] Apr 02, 2018 02:47 PM CURRENT SMOKER [facility] Apr 02, 2018 02:47 PM V1-PT DECLINES REF TO TOBACCO CESS [facility] Apr 02, 2018 02:47 PM V1-PT DECLINES TOB ACCO CESSATION [facility] Apr 02, 2018 02:47 PM V1-PT THINKING ABO UT QUIT TOBACCO USE [facility] Encounter Notes: All associated encounter [...] complaint: Patient is a 69 year old Gaines. HPI: Pleasant male Gaines here to follow up. He reports increasing [...] scan, ordered. I also advised consultation with industrial relations analyst, he is in agreement. I strongly advised [...] 07:53)BMI: 30.6201 lb [91.17 kg] (09/14/2024 07:53) is alert and oriented X3 Neck: supple [...] treatment planning, education and counseling of the patient/family/respiratory care program director, placing orders, communicating with other health care providers, and documentation in the electronic health record Follow up visit in 4 mos. Initial Lung Cancer Screen (Provider): Chest CT within 12 months outside of this OR that assesses pulmonary nodules. Patient is not [...] of active outpatient prescriptions dispensed from this OR (local) and dispensed from another OR or [facility] facility (remote) as well as inpatient orders [...] or non-VA provider. /lolly/ Sherlyn Lentz DNP, END FRAZER-BC, CNL Primary Care Nurse Practitioner Signed: 09/14/2024 10:20 SHERLYN LENTZ [facility] [place] [facility] Sep 14, 2024 07:57 AM PREVENTIVE MEDICINE NURSING NOTE: LOCAL TITLE: CLINICAL REMINDERS/NURSING STANDARD TITLE: PREVENTIVE MEDICINE NURSING NOTE DATE OF NOTE: SEP 14, 2024@07:57 ENTRY DATE: SEP 14, 2024@07:57:55 AUTHOR: ALONSO MCQUEEN COSIGNER: URGENCY: STATUS: COMPLETED [...] types of tobacco. /lolly/ Alonso Mcqueen, Health Drawer In Hand SK[facility] LIFTER BACON,PRIMARY CARE Signed: 09/14/2024 07:59 09/14/2024 ADDENDUM STATUS: COMPLETED COVID-19 Immunization: Moderna Monovalent (Spikevax) Administered: COVID-19 (MODERNA), MRNA, LNP-S, PF, 50 MCG/0.5 ML (AGES 12+ YEARS) Date Administered: Sep 14, 2024 08:00 Series: Booster Vamp Creaser: MODERNArchetypes. Lot: [id number] Exp Date: March 05, 2025 [facility]: [phone] Admin Route/Site: INTRAMUSCULAR/RIGHT DELTOID Dosage: 0.5mL Vaccine Information Statement(s): COVID-19 MRNA VACCINE (12+ YRS) VIS Jul 22, 2024 ([facility]) Order By: Policy Administered By: Dena Jade Vaccine administered without complications. /lolly/ Dena Jade MSN RN CNL Primary Care RN Signed: 09/14/2024 08:51 ALONSO MCQUEEN [facility]
--- OUTSIDE RECORDS SUMMARY | 2025-02-15 09:11 | XMS_ITS ---
Author Name [facility] [place] Organization [facility] [place] [facility] [place] Address [address] [place] [address] Care Team Providers Care Mental Health Consultant Name Role Phone SHERLYN LENTZ Primary Care Provider [facility] Insurance [...] PART B Apr 05, 2020 PART B [id number] MIGUELITOCOCO FRANKLINNDER PATIENT MEDICARE (WNR) MEDICARE (M) PART A Mar 06, 2019 PART A [id number] NIKOLEDEEJAYCOCO Camargo [place] PATIENT Selected Encounter This section includes the information on record at [place] for the Encounter. Date/Time Encounter Type Encounter Description Reason Pro vider Source Feb 02, 2025 11:36 AM Outpatient Encounter ADMIN PAT ACTIVTIES (MASNONCT) IHE Encounter Template Text not used by [place] Plan of Treatment: Future Appointments (+ 6 [...] 20 appointments. The data comes from all [facility] facilities. Appointment Date/Time Appointment Type Appointme nt Facility Name February 17, 2025 09:00 AM AMBULATORY - MEDICINE [facility] Jul 26, 2025 09:00 AM AMBULATORY - MEDICINE [facility] Active, Pending, and Scheduled Orders This section includes a listing of several types of active, pending, and scheduled orders, including clinic medications orders, diagnostic test orders, procedure orders and consult orders; where the start date of the order is 45 days before the date of the Encounter or 45 days after the date of theEncounter. The data comes from all [facility]. Test Date/Time Test Type Test Details Facility Name Jan 20, 2025 12:00 AM Laboratory - Chemi stry Order BASIC METABOLIC PANEL (non-fasting) BLOOD (SST-SERUM) SP [facility] Jan 24, 2025 03:22 PM Consult Order COMMUNITY CARE-OPHTHALMOLOGY Cons Newspaper Photographer's Choice [facility] Jan 25, 2025 02:39 PM Consult Order [facility]CARD[facility]OLOG[facility] Cons Newspaper Photographer's Choice [facility] February 10, 2025 12:00 AM Imaging - General Radiology Order OUTSIDE MRI BRAIN W/WO CONTRAST [facility] Lab Results: +/- 30 days of the encounter This section includes the Chemistry and Hematology Lab Results on record with [place] for the patient. Radiology Reports and Pathology Reports are provided separately, in subsequent sections. Lab Results This section contains the Chemistry/Hematology Results that were resulted 30 days before or 30 daysafter the date of the Encounter. Date/Time Source Result Type Result - Unit Interpretation Reference Range Specimen Type Comment Jan 17, 2025 09:54 AM [facility] FREE T4 SERUM Specimen Type: SERUM No comment entered. Ordering Provider: JEEVAN RILEY Report Released Date/Time: Jan 16, 2025 03:25 PM Reporting Lab: [address] [address] Performing Lab: [facility] [address] [facility] [address] FREE T4 1.29 ng/dL 0.70-1.48 Jan 17, 2025 09:54 AM [facility] CALCIUM SERUM Specimen Type: SERUM No comment entered. Ordering Provider: JEEVAN RILEY Report Released Date/Time: Jul 18, 2024 06:58 PM Reporting Lab: [facility] [address] [address] [address] Performing Lab: [address] [address] CALCIUM 9.9 mg/dL 8.8-10 Jan 17, 2025 09:54 AM [facility] VITAMIN D (25-OH) SERUM Specimen Type: SERUM No comment entered. Ordering Provider: JEEVAN RILEY Report Released Date/Time: Jul 18, 2024 06:58 PM Reporting Lab: [address] [address] Performing Lab: [address] [address] VITAMIN D (25-OH) 46.2 ng/mL 20-50 Jan 17, 2025 09:54 AM [facility] BASIC METABOLIC PANEL (non-fasting) SERUM Spe cimen Type: SERUM No comment entered. Ordering Provider: JEEVAN RILEY Report Released Date/Time: Jul 18, 2024 06:58 PM Reporting Lab: [address] [address] Performing Lab: [address] [address] UREA NITROGEN 39 mg/dL H 8-26 GLUCOSE [...] and tobacco- related health factors from the [place] facility where the Encounter took place. Current Smoking Status This section includes the most current smoking, or tobacco-related health factor, from the [place] facility where the Encounter took place. Date/Time Current Smoking Status Comment Facil ity Sep 14, 2024 08:00 AM VA-TOBACCO USE ОЛЕГ RY DAY CIGARETTES [facility] [place] [facility] Tobacco Use History This section includes a history of the smoking, or tobacco-related health factors, that were collected on or before the date of the Encounter. The data comes from the [place] facility where the Encounter took place. Date/Time Smoking Status/Tobacco Use Comment F acility Sep 14, 2024 08:00 AM VA-TOBACCO SCREEN FOLLOW-UP [facility] [place] [facility] Sep 14, 2024 08:00 AM VA-TOBACCO USE ADVICE [facility] [place] [facility] Sep 14, 2024 08:00 AM VA-TOBACCO USE CONFERENCE CONCIERGE NO [facility] [place] [facility] Sep 14, 2024 08:00 AM VA-TOBACCO USE ОЛЕГ RY DAY CIGARETTES [facility] [place] [facility] Sep 14, 2024 08:00 AM VA-TOBACCO USE MED NO [facility] [place] [facility] Sep 04, 2023 01:14 PM VA-TOBACCO USE 30 YEARS OR MORE [facility] [place] [facility] Sep 04, 2023 01:14 PM VA-TOBACCO USE ADVICE [facility] [place] [facility] Sep 04, 2023 01:14 PM VA-TOBACCO USE CONFERENCE CONCIERGE NO [facility] [place] [facility] Sep 04, 2023 01:14 PM VA-TOBACCO USE MED NO [facility] [place] [facility] Sep 04, 2023 01:14 PM VA-TOBACCO USE WI 30 MIN OF WAKEUP [facility] [place] [facility] Sep 04, 2023 01:14 PM VA-TOBACCO USER EVERY DAY [facility] [place] [facility] Oct 01, 2022 09:45 AM VA-TOBACCO DOESNT USE WI 30 MIN WAKEUP [facility] [place] [facility] Oct 01, 2022 09:45 AM VA-TOBACCO USE 30 YEARS OR MORE [facility] [place] [facility] Oct 01, 2022 09:45 AM VA-TOBACCO USE ADVICE [facility] [place] [facility] Oct 01, 2022 09:45 AM VA-TOBACCO USE CONFERENCE CONCIERGE NO [facility] [place] [facility] Oct 01, 2022 09:45 AM VA-TOBACCO USE MED NO [facility] [place] [facility] Oct 01, 2022 09:45 AM VA-TOBACCO USER EVERY DAY [facility] [place] [facility] Sep 07, 2021 10:30 AM VA-TOBACCO USE 30 YEARS OR MORE [facility] [place] [facility] Sep 07, 2021 10:30 AM VA-TOBACCO USE ADVICE [facility] [place] [facility] Sep 07, 2021 10:30 AM VA-TOBACCO USE CONFERENCE CONCIERGE NO [facility] [place] [facility] Sep 07, 2021 10:30 AM VA-TOBACCO USE MED NO [facility] [place] [facility] Sep 07, 2021 10:30 AM VA-TOBACCO USE WI 30 MIN OF WAKEUP [facility] [place] [facility] Sep 07, 2021 10:30 AM VA-TOBACCO USER EVERY DAY [facility] [place] [facility] Jun 08, 2020 09:00 AM VA-TOBACCO USE 30 YEARS OR MORE [facility] [place] [facility] Jun 08, 2020 09:00 AM VA-TOBACCO USE ADVICE [facility] [place] [facility] Jun 08, 2020 09:00 AM VA-TOBACCO USE CONFERENCE CONCIERGE NO [facility] [place] [facility] Jun 08, 2020 09:00 AM VA-TOBACCO USE MED NO [facility] [place] [facility] Jun 08, 2020 09:00 AM VA-TOBACCO USE WI 30 MIN OF WAKEUP [facility] [place] [facility] Jun 08, 2020 09:00 AM VA-TOBACCO USER EVERY DAY [facility] [place] [facility] Feb 01, 2019 02:27 PM VA-TOBACCO USE 30 YEARS OR MORE [facility] [place] [facility] Feb 01, 2019 02:27 PM VA-TOBACCO USE ADVICE [facility] Feb 01, 2019 02:27 PM VA-TOBACCO USE CONFERENCE CONCIERGE NO [facility] Feb 01, 2019 02:27 PM [facility] Feb 01, 2019 02:27 PM VA-TOBACCO USE WI 30 MIN OF WAKEUP [facility] Feb 01, 2019 02:27 PM VA-TOBACCO USER EVERY DAY [facility] Apr 02, 2018 02:47 PM [facility] [place] [facility] Apr 02, 2018 02:47 PM V1-PT DECLINES REF TO TOBACCO CESS PRGM [facility] Apr 02, 2018 02:47 PM V1-PT DECLINES TOB ACCO CESSATION MEDS [facility] Apr 02, 2018 02:47 PM V1-PT THINKING ABO UT QUIT TOBACCO USE [facility] Radiology Reports: +/- 30 days [...] the Encounter. The data comes from all [place] treatment facilities. Date/Time Radiology Report Provider Source Feb 02, 2025 08:57 AM MRI BRAIN W/WO CONTRAST: [place] RENDON [id number] -1955 M Exm Date: FEB 02, 2025@08:57 Req Phys: JEEVAN RILEY Loc: [facility] ENDOCRINE 1 (Req'g Loc) Img Loc: [facility] MRI Service: Unknown [facility] [place] [address] (Case [id number] COMPLETE) MRI BRAIN W/WO CONTRAST (MRI Detailed) CPT:57508 Contrast Media : Gadolinium Reason for Study: Pituitary adenoma, worsening vision Clinical History: PLEASE NOTE If patient is claustrophobic consider ordering anti-anxiety medication prior to MRI. Safety Assessment: You must answer ALL questions or this questionnaire is not captured. Ordering provider, phone number and beeper:Hang Maurer RN [phone] Weight: 205 lb [92.99 kg] (01/20/2025 [...] 02, 2025 Date Verified: FEB 02, 2025 Rocket Engine Component Mechanic E-Sig:/ES/ASHANTI ROMERO Report: PITUITARY MRI W/WO: CLINICAL INDICATION: Reason for Study: Pituitary adenoma, worsening vision PLEASE NOTE If patient is claustrophobic consider ordering anti-anxiety medication prior to MRI. Safety Assessment: You must answer ALL questions or this questionnaire is not captured. Ordering provider, phone number and beeper:Hang Maurer RN [phone] Weight: 205 l REASON FOR STUDY: [...] the junction of the adeno and neurohypophysis. Kotlik gland: Normal volume and positioned within the [...] Primary Interpreting Staff: ASHANTI ROMERO, Staff Physician (Rocket Engine Component Mechanic) /ASHANTI CODY [facility] Feb 02, 2025 08:28 AM BONE DENSITY DXA: [place] L[place] [id number] 1955 Ex Date: FEB 02, 2025@08:28 Req Phys: JEEVAN RILEY Loc: [facility] END[facility] MD 1 (Req'g Loc) Img Loc: [facility] 1 Service: [place] [address] (Case [id number] COMPLETE) BONE DENSITY AXIAL-DXA (RAD Detailed) CPT:08156 Reason for Study: osteoporosis Clinical History: Report Status: Verified Date Reported: FEB 02, 2025 Date Verified: FEB 02, 2025 Rocket Engine Component Mechanic E-Sig:/ES/AUSTIN GARCIA Report: DXA BONE DENSITY AXIAL: [...] MODEL: The exam was performed on a [employer]uf[employer] A system at [place], [place]. 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 FILLING MACHINE OPERATOR (Req'g Loc) Img Loc: [facility]/CT Service: Unknown [facility] [place] [facility] [place], [place] [address] (Case [id number] COMPLETE) CT THORAX W/O CONT (CT Detailed) CPT:54351 Reason for Study: 3 mos follow up Clinical History: 10/21/2024 found to have a new 7.4mm nodule right upper lobe, follow up due January 19, 2025 Report Status: Verified Date Reported: JAN 21, 2025 Date Verified: JAN 21, 2025 Rocket Engine Component Mechanic E-Sig:/ES/AUSTIN GARCIA Report: Exam: CT chest without [...] Primary Interpreting Staff: AUSTIN GARCIA, Staff Physician (Rocket Engine Component Mechanic) /AUSTIN MORRIS [facility] Encounter Notes: All associated encounter notes This section contains the clinical notes associated to the Encounter. Date/Time Encounter Note(s) Provider Source Feb 02, 2025 11:36 AM MEDICATION MGT NOT E: LOCAL TITLE: MEDICATION RENEWAL STANDARD TITLE: MEDICATION MGT NOTE DATE OF NOTE: FEB 02, 2025@11:36 ENTRY DATE: FEB 02, 2025@11:36:51 AUTHOR: MARCOS DASH EXP COSIGNER: URGENCY: STATUS: COMPLETED Hello we have a requesting medication renewal for mailing please renew if appropriate Active Outpatient Medications (including Supplies): Active Outpatient Medications Status ====== 1) 6 [id number] CHOLECALCIF 25MCG (D3-1,000UNIT) TAB 90 E> 09-14 12 0 90 /lolly/ MARCOS DASH BOILERMAKER PIPE FITTER Signed: 02/02/2025 13:21 Receipt Acknowledged By: 02/03/2025 06:48 /es/ Sherlyn Lentz DNP, MACHINE FEEDER-BC, CNL Primary Care Nurse Practitioner MARCOS DASH [facility]
--- OUTSIDE RECORDS SUMMARY | 2025-02-15 09:11 | XMS_ITS | Clinical Summary ---
Author Organization [facility] Facility Address [address] [place] [id number] Care Team Providers Care Drying Machine Back Tender Name Role Phone Unavailable Primary Care Provider [...] Colorectal Cancer Screening: Sigmoidoscopy 2002 Pneumococcal Vaccine: 50+ Years (3 of 3 - PCV20 or PCV21) 05/03/2024 05/03/2019, 04/16/2018 Influenza Vaccine (Season Ended) 2025 Hepatitis B Vaccine Aged Out No longe r eligible based on patient's age to complete this topic Insurance [facility] [employer] 1,2,3 (VACCN) [facility] [employer] 1,2,3 (VACCN)
--- OUTSIDE RECORDS SUMMARY | 2025-02-15 09:11 | XMS_ITS ---
Author Name [facility] [facility] [place] Address [address] [place] [id number] Care Team Providers Care Air Conditioning Service Technician Name Role Phone SHERLYN BRADLEY Primary Care Provider [facility] Insurance Providers: All historical and current [...] PART B Apr 05, 2020 PART B [id number] [facility] PATIENT MEDICARE (WNR) MEDICARE (M) PART A Mar 06, 2019 PART A [id number] COCO FARLEYER PATIENT Selected Encounter This [...] AM PRIMARY Hypo-osmolality and hyponatremia [facility]VAN RILEY [facility] [place] Plan of Treatment: Future Appointments (+ 6 months) and Future Tests (+/- 45 days) The Plan of Treatment section includes future care activities for the [facility] [place] [facility]. This section includes future appointments [...] 14, 2024 08:00 AM [facility]BUL[facility] Oct 18, 2024 09:45 AM [facility]UL[facility]ORY [facility] [place] Oct 21, 2024 08:30 AM [facility] [place] Jan 06, 2025 10:30 AM [facility]UL[facility] [place] Jan 20, 2025 08:00 AM AMBULATORY - MEDICINE [facility] NTRL TRN [facility] [place] Jan 20, 2025 09:15 AM [facility] [place] Lab Results: +/- 30 days of the [...] Unit Interpretation Reference Range Specimen Type Comment Jul 14, 2024 09:10 AM [facility] COPEPTIN SERUM Specimen Type: SERUM Comment: REFERENCE RANGE: <= 13.7 pmol/L This test was developed and its analytical performance characteristics have been determined by [facility]. It has not been cleared or approved by FDA. This assay has been validated pursuant to the CLIA regulations and is used for clinical purposes. [facility] [address] [place] [address] Maintenance Carpenter: Estela Barlow MD,PHD,PATSY Test Reported by Saleem Mcdowell, [facility], [address] [place], [place] Seamus Joseph M.D., Ph.D., Director of Laboratories , [place] [id number] TEST PERFORMED AT: , Ordering Provider: JEEVAN RILEY Report Released Date/Time: Jul 13, 2024 09:00 AM Reporting Lab: [facility] [place] [facility] [address] [facility] [address] Performing Lab: [facility] [place] [facility] [address] [address] COPEPTIN 7.3 SEE BELOW Jul 14, 2024 09:10 AM [facility] [place] [facility] OSMOLALITY (SERUM) SERUM Specimen Type: SERUM Comment: Manually entered by: RTO Ordering Provider: JEEVAN RILEY Report Released Date/Time: Jul 13, 2024 09:00 AM Reporting Lab: [facility] [place] [facility] [address] [facility] [address] Performing Lab: [facility] [place] [facility] [address] [facility] [address] OSMOLALITY (SERUM) 267 L 280-300 Jul 14, 2024 09:10 AM [facility] OSMOLALITY (URINE) URINE Specimen Type: URINE Comment: Manually entered by: RTO Ordering Provider: JEEVAN RILEY Report Released Date/Time: Jul 13, 2024 09:00 AM Reporting Lab: [facility] [place] [facility] [address] [facility] [address] Performing Lab: [facility] [place] [facility] [address] [facility] [address] OSMOLALITY (URINE) [phone] Jul 14, 2024 09:10 AM [facility] [place] [facility] SODIUM RANDOM URINE URINE Specimen Type: URIN E No comment entered. Ordering Provider: JEEVAN RILEY Report Released Date/Time: Jul 13, 2024 09:00 AM Reporting Lab: [facility] [place] [facility] [address] [facility] [address] Performing Lab: [facility] [place] [facility] [address] [facility] [address] SODIUM, URINE 53 mmol/L 20-400 Jul 14, 2024 09:10 AM [facility] BASIC METABOLIC PANEL (non-fasting) SERUM Spe cimen Type: SERUM No comment entered. Ordering Provider: JEEVAN RILEY Report Released Date/Time: Jul 13, 2024 09:00 AM Reporting Lab: [facility] [address] [facility] [address] Performing Lab: [facility] [address] [facility] [address] UREA NITROGEN 15 mg/dL 7-25 GLUCOSE 95 mg/dL 65-100 SODIUM 128 mmol/L L 135-145 POTASSIUM 4.9 mmol/L 3.5-5.0 CHLORIDE 88 mmol/L L 100-110 CO2 24 meq/L 20-30 CREATININE, Serum 0.91 mg/dL 0.50-1.40 eGFR(CKD-EPI 2020) 90 mL/min >60 Jul 12, 2024 01:01 PM [facility] THYROID T4 FREE(FT4) (WROX) SERUM Specimen Ty pe: SERUM No comment entered. Ordering Provider: JEEVAN RILEY Report Released Date/Time: Jul 09, 2024 10:34 AM Reporting Lab: [facility] [address] [facility] [address] Performing Lab: [facility] [address] [facility] [address] THYROID T4 FREE(FT4) (WROX) 1.38 ng/dL 0 .6-1.6 Jul 12, 2024 01:01 PM [facility] TSH SERUM Specimen Type: SERUM No comment entered. Ordering Provider: JEEVAN RILEY Report Released Date/Time: Jul 09, 2024 10:34 AM Reporting Lab: [facility] [address] [facility] [address] Performing Lab: [address] [address] TSH 1.37 u[IU]/mL 0.35-5.00 Jul 12, 2024 01:01 PM [facility] CALCIUM SERUM Specimen Type: SERUM No comment entered. Ordering Provider: JEEVAN RILEY Report Released Date/Time: Jul 09, 2024 10:34 AM Reporting Lab: [facility] [address] [facility] [address] Performing Lab: [address] [address] CALCIUM 10.0 mg/dL 8.5-10.2 Jul 12, 2024 01:01 PM [facility] VITAMIN D (25-OH) SERUM Specimen Type: SERUM No comment entered. Ordering Provider: JEEVAN RILEY Report Released Date/Time: Jul 09, 2024 10:34 AM Reporting Lab: [address] [address] Performing Lab: [address] [address] VITAMIN D (25-OH) 44 ng/mL 20-50 Jul 12, 2024 01:01 PM [facility] BASIC METABOLIC PANEL (non-fasting) SERUM Spe cimen Type: SERUM No comment entered. Ordering Provider: JEEVAN RILEY Report Released Date/Time: Jul 09, 2024 10:50 AM Reporting Lab: [address] [address] Performing Lab: [address] [address] UREA NITROGEN 13 mg/dL 7-25 GLUCOSE 78 [...] 100 138/80 16 91 0 195 30 [facility] [place] [facility] Social History: Smoking Status (Most [...] [place] 30 MIN [place]KEUP [place] [facility] Tobacco Use History This section includes a history of the smoking, or tobacco-related health factors, that were collected on or before the date of the Encounter. The data comes from the [place] facility where the Encounter took place. Date/Time Smoking Status/Tobacco Use Comment F acility Sep 04, 2023 01:14 PM VA-TOBACCO USE ADVICE [facility] [place] [facility] Sep 04, 2023 01:14 PM VA-TOBACCO USE WOOD LAST MAKER NO [facility] [place] [facility] Sep 04, 2023 01:14 PM VA-TOBACCO USE MED NO [facility] [place] [facility] Sep 04, 2023 01:14 PM VA-TOBACCO USE WI 30 MIN OF WAKEUP [facility] [place] [facility] Sep 04, 2023 01:14 PM VA-TOBACCO USER EVERY DAY [facility] [place] [facility] Oct 01, 2022 09:45 AM VA-TOBACCO DOESNT USE WI 30 MIN WAKEUP [facility] [place] [facility] Oct 01, 2022 09:45 AM VA-TOBACCO USE 30 YEARS OR MORE [facility] [place] [facility] Oct 01, 2022 09:45 AM VA-TOBACCO USE ADVICE [facility] [place] [facility] Oct 01, 2022 09:45 AM VA-TOBACCO USE WOOD LAST MAKER NO [facility] [place] [facility] Oct 01, 2022 09:45 AM VA-TOBACCO USE MED NO [facility] [place] [facility] Oct 01, 2022 09:45 AM VA-TOBACCO USER EVERY DAY [facility] [place] [facility] Sep 07, 2021 10:30 AM VA-TOBACCO USE 30 YEARS OR MORE [facility] [place] [facility] Sep 07, 2021 10:30 AM VA-TOBACCO USE ADVICE [facility] [place] [facility] Sep 07, 2021 10:30 AM VA-TOBACCO USE WOOD LAST MAKER NO [facility] [place] [facility] Sep 07, 2021 10:30 AM VA-TOBACCO USE MED NO [facility] [place] [facility] Sep 07, 2021 10:30 AM VA-TOBACCO USE WI 30 MIN OF WAKEUP [facility] [place] [facility] Sep 07, 2021 10:30 AM VA-TOBACCO USER EVERY DAY [facility] [place] [facility] Jun 08, 2020 09:00 AM VA-TOBACCO USE 30 YEARS OR MORE [facility] [place] [facility] Jun 08, 2020 09:00 AM VA-TOBACCO USE ADVICE [facility] [place] [facility] Jun 08, 2020 09:00 AM VA-TOBACCO USE WOOD LAST MAKER NO [facility] [place] [facility] Jun 08, 2020 09:00 AM VA-TOBACCO USE MED NO [facility] [place] [facility] Jun 08, 2020 09:00 AM VA-TOBACCO USE WI 30 MIN OF WAKEUP [facility] [place] [facility] Jun 08, 2020 09:00 AM VA-TOBACCO USER EVERY DAY [facility] [place] [facility] Feb 01, 2019 02:27 PM VA-TOBACCO USE 30 YEARS OR MORE [facility] [place] [facility] Feb 01, 2019 02:27 PM VA-TOBACCO USE ADVICE [facility] [place] [facility] Feb 01, 2019 02:27 PM VA-TOBACCO USE WOOD LAST MAKER NO [facility] [place] [facility] Feb 01, 2019 02:27 PM VA-TOBACCO USE MED NO [facility] [place] [facility] Feb 01, 2019 02:27 PM VA-TOBACCO USE WI 30 MIN OF WAKEUP [facility] [place] [facility] Feb 01, 2019 02:27 PM VA-TOBACCO USER EVERY DAY [facility] [place] [facility] Apr 02, 2018 02:47 PM CURRENT SMOKER [facility] [place] [facility] Apr 02, 2018 02:47 PM V1-PT DECLINES REF TO TOBACCO CESS PRGM [facility] Apr 02, 2018 02:47 PM V1-PT DECLINES TOB ACCO CESSATION MEDS [place] [facility] Apr 02, 2018 02:47 PM V1-PT THINKING ABO UT QUIT [facility]BACCO USE [facility] Encounter Notes: All associated encounter notes This [...] 14, 2024@09:10 OSMOLALITY (SERUM): 267 L mOsm/K [id number] - 300 FEBRUARY 11, 2023 DEXA scan. Comparison: None. Findings: Measurement of bone mineral content gives a T score of -2.5 in the hip, and -1.2 in the lumbar spine. Active problems - Computerized Problem List is the source for the followin. Multiple nodules of lung 2. Osteoporosis 3. Benign neoplasm of pituitary gland 4. Diplopia 5. Hypothyroid 6. Polyp Colon ([facility] [id number]) 7. Aneurysm of thoracic aorta 8. HTN - Hypertension ([facility] [id number]) 9. Hyperlipidemia ([facility] [id number]) 10. Chronic obstructive lung disease 11. Tobacco user 12. Elevated blood-pressure reading without diagnosis of hypertension 13. Dyspnea ([facility] [id number]) 14. Diagnosis or Condition Deferred on Cameron I Active Outpatient Medications (including Supplies): Active [...] (local) and dispensed from another [place] or [facility] facility (remote) as well as inpatient [...] Remote Allergy/ADR Data available for this patient [place] [facility] [place] [facility] HCTZ HYDROCHLOROTHIAZIDE Med Recon NoGlossary (Tool #1) INCLUDED IN THIS LIST: Alphabetical list of active outpatient prescriptions dispensed from this [place] (local) and dispensed from another [place] or [facility] facility (remote) as well as inpatient orders (local pending and active), local clinic medications, locally documented non-VA medications, and local prescriptions that have or been discontinued in the past 90 days. Non-VA Meds Last Documented On: Data not found NOTE The display of VA prescriptions dispensed from another [place] or [facility] facility (remote) is limited to active outpatient prescription entries matched to National Drug File at the originating site and may not include some items such as investigational drugs, compounds, etc. NOT INCLUDED IN THIS LIST: Medications self-entered by the patient into personal health records (i.e. [employer]) are NOT included in this list. Non-VA [...] EVERY 4 HOURS NEEDED FOR BREATHING Rx# [id number] Last Released: 07/01/24 Qty/Days Supply: Rx Expiration Date: 01/21/25 Refills Remainin OUTPT ATORVASTATIN CALCIUM 40MG TAB (Status = Active) TAKE ONE-HALF TABLET BY MOUTH ONCE DAILY FOR CHOLESTEROL Rx# [id number] Last Released: 05/17/24 Qty/Days Supply: Rx Expiration Date: 09/11/24 Refills Remainin OUTPT CALCIUM 200MG (CA CITRATE-950MG) TAB (Status = Active) TAKE THREE TABLETS BY MOUTH TWICE DAILY Rx# [id number] Last Released: 07/09/24 Qty/Days Supply: Rx Expiration Date: 10/07/24 Refills Remainin Indication: FOR OSTEOPOROSIS OUTPT CHOLECALCIF 25MCG (D3-1,000UNIT) TAB (Status = ) TAKE ONE TABLET BY MOUTH ONCE DAILY FOR VITAMIN SUPPLEMENTATION Rx# [id number] Last Released: 03/12/24 Qty/Days Supply: Rx Expiration Date: 04/26/24 Refills Remainin Indication: FOR VITAMIN D DEFICIENCY OUTPT CHOLECALCIF 25MCG (D3-1,000UNIT) TAB (Status = Active) TAKE ONE TABLET BY MOUTH ONCE DAILY FOR VITAMIN SUPPLEMENTATION Rx# [id number] Last Released: 07/09/24 Qty/Days Supply: Rx Expiration Date: 10/07/24 Refills Remainin Indication: FOR VITAMIN D DEFICIENCY OUTPT DEMECLOCYCLINE HCL 150MG TAB (Status = Active) TAKE ONE TABLET BY MOUTH TWICE DAILY FOR INFECTION Rx# [id number] Last Released: 07/20/24 Qty/Days Supply: Rx Expiration Date: 07/17/25 Refills Remainin Indication: FOR INFECTION OUTPT FLUTICAS 250/SALMETEROL 50 INHL DISK 60 (Status = Active) INHALE 1 PUFF BY MOUTH TWICE DAILY - RINSE MOUTH AFTER USE REPLACES SYMBICORT (BUDESONIDE/FORMOTEROL) Rx# [id number] Last Released: 07/09/24 Qty/Days Supply: 11/04 Rx Expiration Date: 12/04/24 Refills Remainin OUTPT LEVOTHYROXINE NA (SYNTHROID) 88MCG TAB (Status = Active) TAKE ONE TABLET BY MOUTH EVERY MORNING 30 MINUTES BEFORE BREAKFAST TAKE ON AN EMPTY STOMACH WITH A FULL GLASS OF WATER Rx# [id number] Last Released: 07/09/24 Qty/Days Supply: Rx Expiration Date: 12/29/24 Refills Remainin Indication: FOR THYROID OUTPT LISINOPRIL 30MG TAB (Status = Active) TAKE ONE TABLET BY MOUTH ONCE DAILY TO CONTROL BLOOD PRESSURE NOTE NEW TABLET STRENGTH Rx# [id number] Last Released: 07/09/24 Qty/Days Supply: Rx Expiration Date: 09/11/24 Refills Remainin OUTPT NAPROXEN 500MG TAB (Status = Active) TAKE ONE TABLET BY MOUTH EVERY 12 HOURS NEEDED TAKE WITH FOOD; FOR PAIN/INFLAMMATION/SWELLING Rx# [id number] Last Released: 03/12/24 Qty/Days Supply: Rx Expiration Date: 03/13/25 Refills Remainin Indication: FOR PAIN OUTPT TIOTROPIUM 2.5MCG/ACTUAT 60D ORAL INHL (Status = Active) INHALE 2 PUFFS BY MOUTH ONCE DAILY THIS REPLACES TIOTROPIUM HANDIHALER CAPSULES Rx# [id number] Last Released: 05/17/24 Qty/Days Supply: Rx Expiration Date: 09/11/24 Refills Remainin SUPPLIES /galina RILEY MD STAFF PHYSICIAN Signed: 07/22/2024 08:24 JEEVAN RILEY [facility] [place] [facility]
--- OUTSIDE RECORDS SUMMARY | 2025-02-15 09:11 | XMS_ITS ---
Author Name [facility] [place] Organization [facility] [place] Address [address] [place] [id number] Care Team Providers Care Child Support Case Officer Name Role Phone SHERLYN LENTZ Primary Care Provider [facility] Insurance Providers: All [...] PART B Apr 05, 2020 PART B [id number] [place] PATIENT MEDICARE (WNR) MEDICARE (M) PART A Mar 06, 2019 PART A [id number] [facility]LEYER PATIENT Selected Encounter This section includes the information on record at [place] for the Encounter. Date/Time Encounter Type Encounter Description Reason Provider Source Mar 12, 2024 08:30 AM OFFICE O/P EST LOW 20 MIN PRIMARY CARE/MEDICINE ICD-10-CM R91.1 Solitary pulmonary nodule PHILLIP LENTZ AM Nathaniel Encounter Template Text not used by [place] Assessments - Encounter Diagnoses This section includes the primary and secondary diagnoses documented for the Encounter. Date/Time Primary/Secondary Diagnosis Diagnosis Name Provider Source Mar 12, 2024 08:17 AM PRIMARY Solitary pulmonary nodule PADMINI JADE [facility] [place] [facility] Mar 12, 2024 08:17 AM SECONDARY Benign neoplasm of pituitary gland [facility]ADMINI [facility]ADEA [facility] [place] [facility] Mar 12, 2024 08:17 AM SECONDARY Chronic obstructive pulmonary disease, unspecified PADMINI JADEA [facility] [place] [facility] Mar 12, 2024 08:17 AM SECONDARY Elevated blood-pressure reading, w/o diagnosis of htn PADMINI JADE [facility] [place] [facility] Mar 12, 2024 08:17 AM SECONDARY Encounter for immunization PADMINI JADE [facility] [place] [facility] Mar 12, 2024 08:17 AM SECONDARY Essential (primary) hypertension PADMINI JADEA [facility] [place] [facility] Mar 12, 2024 08:17 AM SECONDARY Hyperlipidemia, unspecified PADMINI JADE [facility] [place] [facility] Mar 12, 2024 08:17 AM SECONDARY Tobacco use PADMINI JADEA [facility] [place] [facility] Plan of Treatment: Future Appointments (+ 6 months) and Future Tests (+/- 45 days) The Plan of Treatment section includes [facility] [place] [facility] This section includes future appointments and [...] 01, 2024 09:00 AM AMBULATORY - NONE [place] [facility] [place] [facility] Jul 22, 2024 08:00 AM AMBULATORY - MEDICINE [place] [facility] [place] [facility] Lab Results: +/- 30 days of the [...] Unit Interpretation Reference Range Specimen Type Comment Mar 12, 2024 07:31 AM [facility] LIPID PANEL, NON FASTING SERUM Specimen Type: SERUM No comment entered. Ordering Provider: SHERLYN LENTZ Report Released Date/Time: February 26, 2024 08:16 AM Reporting Lab: [facility] [address] [address] Performing Lab: [facility] [address] [address] CHOLESTEROL 161 mg/dL TRIGLYCERIDE 73 mg/dL 0-150 LDL calculated 75 mg/dL 0-129 CHOL/HDL 2.3 HDL CHOLESTEROL 71 mg/dL H 40-60 Mar 12, 2024 07:31 AM [facility] CBC BLOOD Specimen Type: BLOOD No comment entered. Ordering Provider: SHERLYN LENTZ Report Released Date/Time: February 26, 2024 08:16 AM Reporting Lab: [facility] [address] [address] Performing Lab: [address] [address] WBC 8.45 10*3/uL 4.50-11.00 RBC 5.21 10*6/uL 4.23-5.66 HGB 17.1 g/dL H 12.8-17 HCT 47.8 39.2-50.4 MCV 91.7 fL 82-99 MCHC 35.8 g/dL H 30.8-35.1 PLT 186 10*3/uL 140-360 RDW-CV 12.2 12.0-16.0 MCH 32.8 pg H 26.2-32.6 Mar 12, 2024 07:31 AM [facility] LIVER FUNCTION SERUM Specimen Type: SERUM No comment entered. Ordering Provider: SHERLYN LENTZ Report Released Date/Time: February 26, 2024 08:16 AM Reporting Lab: [address] [address] Performing Lab: [address] [address] PROTEIN,TOTAL 7.1 g/dL 6.0-8.3 ALBUMIN 4.4 g/dL 3.5-5.0 ALKALINE PHOSPHATASE 110 U/L 40-150 AST 48 U/L H 5-34 ALT 29 U/L BILIRUBIN, TOTAL 1.5 mg/dL H 0.2-1.2 BILIRUBIN, DIRECT 0.6 mg/dL H 0-0.5 Mar 12, 2024 07:31 AM [facility] FERRITIN SERUM Specimen Type: SERUM No comment entered. Ordering Provider: SHERLYN LENTZ Report Released Date/Time: Mar 15, 2024 10:26 AM Reporting Lab: [facility] [address] [address] Performing Lab: [facility] [address] [address] FERRITIN 683 ng/mL H 20-300 Vital Signs: All taken on the encounter date This section contains inpatient and outpatient Vital Signs collected on the date of the Encounter. Date/Time Temperature Pulse Blood Pressure Respiratory Rate SP02 Pain Height Weight Body Mass Index Source Mar 12, 2024 07:59 AM 97.5 97 120/68 20 92 0 68 194 30 [facility] Immunizations: All administered on the encounter date This section contains immunizations associated to the Encounter. Immunization Series Date Issued Administered By Site Reaction Lot Number CVX Code Drug Wallet Assembler Comment(s) Source PNEUMOCOCCAL CONJUGATE PCV20, POLYSACCHARID E [id number] CONJUGATE, ADJUVANT, PF Mar 12, 2024 PADMINI JADE RIGHT DELTO ID [id number] [employer] ADMINISTERE D AT [place], [facility] Social History: Smoking Status (Most [...] took place. Date/Time Current Smoking Status Comment iDnesh welch Sep 04, 2023 01:14 PM VA-TOBACCO USER EVERY DAY [facility] Tobacco Use History This section [...] Sep 04, 2023 01:14 PM VA-TOBACCO USE COMPLAINT ANALYST NO [facility] [place] Oct 01, 2022 09:45 AM VA-TOBACCO USE COMPLAINT ANALYST NO [facility] [place] [facility] Sep 07, 2021 10:30 AM VA-TOBACCO USE COMPLAINT ANALYST NO [facility] [place] [facility] Jun 08, 2020 09:00 AM VA-TOBACCO USE COMPLAINT ANALYST NO [facility] [place] [facility] Feb 01, 2019 02:27 PM VA-TOBACCO USE COMPLAINT ANALYST NO [facility] [place] [facility] [...] the Encounter. The data comes from all [place] treatment facilities. Date/Time Radiology Report Provider Source Apr 01, 2024 08:[address] THORAX W/O CONT: KINGSTON RENDON [id number] -[id number] Ex Date: APR 01, 2024@08:15 Req Phys: SHERLYN LENTZ Loc: CWM/NO/PACT 7 (Req'g Loc) Img Loc: NHM/CT Service: [facility] , (Case [id number] COMPLETE) CT THORAX W/O CONT (CT Detailed) CPT:26002 Reason for Study: follow up Clinical History: [...] 06, 2024 Date Verified: APR 06, 2024 Hand Sewer E-Sig: Report: CT THORAX W/O CONT HISTORY: follow up COMPARISON: CT of the chest from June 06, 2023. TECHNIQUE: Helical CT of the chest with multiplanar reformats, was performed at the local [place] facility. 1231 images were received by the [place] National Teleradiology Program (NTP) for interpretation. RADIATION [...] as above. READING PHYSICIAN: Junior Rolle MD -[id number] 04/06/2024 14:08 EDT [facility] National Teleradiology Program [phone] (For Medical Practitioner Use Only) Attention Patients / Veterans: If you have questions or concerns about these test results, please contact your ordering provider or primary care team. Primary Diagnostic Code: SIGNIFICANT ABNORMALITY, ATTN NEEDED Secondary Diagnostic Codes: INCIDENTAL LUNG NODULE(NONSCREENING) Primary Interpreting Staff: RADIOLOGY,OUTSIDE SERVICE, Staff Physician / RADIOLOGY,OUTSIDE SERVICE [facility] Encounter Notes: All associated encounter notes [...] EXP COSIGNER: URGENCY: STATUS: COMPLETED t/c to [place], i explained ct findings. Stable aneurysm, new lung nod. Will repeat in one year. /lolly/ SHILPA Carreno DNP, TONY Primary Care Nurse Practitioner Signed: 04/06/2024 14:19 SHERLYN LENTZ [facility] Mar 23, 2024 02:05 PM PRIMARY CARE NURSE PRACTITIONER OUTPATIENT NOTE: LOCAL TITLE: NURSE PRACTITIONER OUTPATIENT NOTE STANDARD TITLE: PRIMARY CARE NURSE PRACTITIONER OUTPATIENT NOTE DATE OF NOTE: MAR 23, 2024@14:05 ENTRY DATE: MAR 23, 2024@14:05:46 AUTHOR: SHERLYN LENTZ EXP COSIGNER: URGENCY: STATUS: COMPLETED LM to review labs. /es/ SHILPA Carreno DNP, TONY Primary Care Nurse Practitioner Signed: 03/23/2024 14:06 SHERLYN LENTZ [facility] Mar 12, 2024 08:12 AM PRIMARY CARE NURSE PRACTITIONER OUTPATIENT NOTE: LOCAL TITLE: NURSE PRACTITIONER OUTPATIENT NOTE STANDARD TITLE: PRIMARY CARE NURSE PRACTITIONER OUTPATIENT NOTE DATE OF NOTE: MAR 12, 2024@08:12 ENTRY DATE: MAR 12, 2024@08:12:47 AUTHOR: SHERLYN LENTZ EXP COSIGNER: URGENCY: STATUS: COMPLETED Chief complaint: Patient is a 68 year old . HPI: Pleasant male here [...] 07:59)BMI: 29.6194 lb [88.00 kg] (03/12/2024 07:59) [place] is alert and oriented X3 Neck: supple [...] due for imaging 4. HTN - [id number] - well controlled 5. Hyperlipidemia ([facility] [id number]) - labs today 6. Chronic obstructive lung [...] CT within 12 months outside of this [facility] that assesses pulmonary nodules. Patient is not [...] or non-VA provider. /lolly/ Sherlyn Lentz DNP, [employer]KER-BC, CNL Primary Care Nurse Practitioner Signed: 03/12/2024 08:17 SHERLYN LENTZ [place] [facility] [place] [facility] Mar 12, 2024 08:03 AM PREVENTIVE MEDICINE [...] of his/her rights. Suicide Screen: C-SSRS Screening [place]-Suicide Severity Rating Scale (C-SSRS Screener) 1. Over [...] past year? Never /lolly/ Alonso Mcqueen, [facility] Administrator NUCLEAR PHYSICIST,PRIMARY CARE Signed: 03/12/2024 08:05 03/12/2024 ADDENDUM STATUS: COMPLETED Pneumococcal Conjugate Vaccine (PCV15/PCV20): PCV20 (Prevnar 20) Administered: PNEUMOCOCCAL CONJUGATE PCV20, POLYSACCHARIDE [id number] CONJUGATE, ADJUVANT, PF Date Administered: Mar 12, 2024 08:19 Wallet Assembler: [employer] Lot: [id number] Exp Date: Jun 05, 2025 [facility]: [phone] Admin Route/Site: INTRAMUSCULAR/RIGHT DELTOID Dosage: 0.5mL Vaccine Information Statement(s): PNEUMOCOCCAL CONJUGATE ([id number]) VIS February 14, 2023 (ROMANIAN) Order By: Policy Administered By: Dena Jade Vaccine Information Sheet (VIS) was given to the patient/caregiver, education regarding adverse reactions was discussed, as well as barriers to learning, if any, were acknowledged. /lolly/ Dena Jade MSN RN CNL Primary Care RN Signed: 03/12/2024 08:19 [facility]
--- OUTSIDE RECORDS SUMMARY | 2025-02-15 09:12 | XMS_ITS | Encounter Summary ---
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 Date/Time Encounter Type Encounter Description Reason Pro vider Source February 14, 2025 08:41 AM Outpatient Encounter TELEPHONE TRIAGE IHE Encounter Template Text not used by [place] Plan of Treatment: Future Appointments (+ 6 [...] 20 appointments. The data comes from all [place] treatment facilities. Appointment Date/Time Appointment Type Appointme nt Facility Name February 17, 2025 09:00 AM AMBULATORY - MEDICINE [facility] Jul 26, 2025 09:00 AM AMBULATORY - MEDICINE [facility] Active, Pending, and Scheduled Orders This section includes a listing of several types of active, pending, and scheduled orders, including clinic medications orders, diagnostic test orders, procedure orders and consult orders; where the start date of the order is 45 days before the date of the Encounter or 45 days after the date of theEncounter. The data comes from all [facility] facilities. Test Date/Time Test Type Test Details Facility Name Jan 20, 2025 12:00 AM Laboratory - Chemi stry Order BASIC METABOLIC PANEL (non-fasting) BLOOD (SST-SERUM) SP [facility] Jan 24, 2025 03:22 PM Consult Order [facility]-OPHTHALMOLOGY Cons Certified Breastfeeding Educator's Choice [facility] Jan 25, 2025 02:39 PM Consult Order [facility]-CARDIOLOGY Cons Certified Breastfeeding Educator's Choice [facility] February 10, 2025 12:00 AM Imaging - General Radiology Order OUTSIDE MRI BRAIN W/WO CONTRAST [facility] Lab Results: +/- 30 days of the encounter This section includes the Chemistry and Hematology Lab Results on record with [place] for the patient. Radiology Reports and Pathology Reports are provided separately, in subsequent sections. Lab Results This section contains the Chemistry/Hematology Results that were resulted 30 days before or 30 daysafter the date of the Encounter. Date/Time Source Result Type Result - Unit Interpretation Reference Range Specimen Type Comment Jan 17, 2025 09:54 AM [facility] FREE T4 SERUM Specimen Type: SERUM No comment entered. Ordering Provider: JEEVAN RILEY Report Released Date/Time: Jan 16, 2025 03:25 PM Reporting Lab: [address] [address] Performing Lab: [address] [address] FREE T4 1.29 ng/dL 0.70-1.48 Jan 17, 2025 09:54 AM [facility] CALCIUM SERUM Specimen Type: SERUM No comment entered. Ordering Provider: JEEVAN RILEY Report Released Date/Time: Jul 18, 2024 06:58 PM Reporting Lab: [address] [address] Performing Lab: [address] [address] CALCIUM 9.9 mg/dL 8.8-10 Jan 17, 2025 09:54 AM [facility] VITAMIN D (25-OH) SERUM Specimen Type: SERUM No comment entered. Ordering Provider: JEEVAN RILEY Report Released Date/Time: Jul 18, 2024 06:58 PM Reporting Lab: [address] [address] Performing Lab: [address] [address] VITAMIN D (25-OH) 46.2 ng/mL 20-50 Jan 17, 2025 09:54 AM [facility] BASIC METABOLIC PANEL (non-fasting) SERUM Spe cimen Type: SERUM No comment entered. Ordering Provider: JEEVAN RILEY Report Released Date/Time: Jul 18, 2024 06:58 PM Reporting Lab: [address] [address] Performing Lab: [address] [address] UREA NITROGEN 39 mg/dL H 8-26 GLUCOSE [...] and tobacco- related health factors from the [place] facility where the Encounter took place. Current Smoking Status This section includes the most current smoking, or tobacco-related health factor, from the [place] facility where the Encounter took place. Date/Time Current Smoking Status Comment Facil ity Sep 14, 2024 08:00 AM VA-TOBACCO USE ОЛЕГ RY DAY CIGARETTES [facility] [place] [facility] Tobacco Use History This section includes a history of the smoking, or tobacco-related health factors, that were collected on or before the date of the Encounter. The data comes from the [place] facility where the Encounter took place. Date/Time Smoking Status/Tobacco Use Comment F acility Sep 14, 2024 08:00 AM VA-TOBACCO SCREEN FOLLOW-UP [place] [facility] [place] [facility] Sep 14, 2024 08:00 AM VA-TOBACCO USE ADVICE [facility] [place] [facility] Sep 14, 2024 08:00 AM VA-TOBACCO USE LEARNING ANALYST NO [facility] [place] [facility] Sep 14, 2024 08:00 AM VA-TOBACCO USE ОЛЕГ RY DAY CIGARETTES [facility] [place] [facility] Sep 14, 2024 08:00 AM VA-TOBACCO USE MED NO [facility] [place] [facility] Sep 04, 2023 01:14 PM VA-TOBACCO USE 30 YEARS OR MORE [facility] [place] [facility] Sep 04, 2023 01:14 PM VA-TOBACCO USE ADVICE [facility] [place] [facility] Sep 04, 2023 01:14 PM VA-TOBACCO USE LEARNING ANALYST NO [facility] [place] [facility] Sep 04, 2023 01:14 PM VA-TOBACCO USE MED NO [facility] [place] [facility] Sep 04, 2023 01:14 PM VA-TOBACCO USE WI 30 MIN OF WAKEUP [facility] [place] [facility] Sep 04, 2023 01:14 PM VA-TOBACCO USER EVERY DAY [facility] [place] [facility] Oct 01, 2022 09:45 AM VA-TOBACCO DOESNT USE WI 30 MIN WAKEUP [facility] [place] [facility] Oct 01, 2022 09:45 AM VA-TOBACCO USE 30 YEARS OR MORE [facility] [place] [facility] Oct 01, 2022 09:45 AM VA-TOBACCO USE ADVICE [facility] [place] [facility] Oct 01, 2022 09:45 AM VA-TOBACCO USE LEARNING ANALYST NO [facility] [place] [facility] Oct 01, 2022 09:45 AM VA-TOBACCO USE MED NO [facility] [place] [facility] Oct 01, 2022 09:45 AM VA-TOBACCO USER EVERY DAY [facility] [place] [facility] Sep 07, 2021 10:30 AM VA-TOBACCO USE 30 YEARS OR MORE [facility] [place] [facility] Sep 07, 2021 10:30 AM VA-TOBACCO USE ADVICE [facility] [place] [facility] Sep 07, 2021 10:30 AM VA-TOBACCO USE LEARNING ANALYST NO [facility] [place] [facility] Sep 07, 2021 10:30 AM VA-TOBACCO USE MED NO [facility] [place] [facility] Sep 07, 2021 10:30 AM VA-TOBACCO USE [place] 30 MIN OF WAKEUP [place] [facility] [place] [facility] Sep 07, 2021 10:30 AM VA-TOBACCO USER EVERY DAY [place] [facility] [place] [facility] Jun 08, 2020 09:00 AM VA-TOBACCO USE 30 YEARS OR MORE [facility] [place] [facility] Jun 08, 2020 09:00 AM VA-TOBACCO USE ADVICE [facility] [place] [facility] Jun 08, 2020 09:00 AM VA-TOBACCO USE LEARNING ANALYST NO [facility] [place] [facility] Jun 08, 2020 09:00 AM VA-TOBACCO USE MED NO [facility] [place] [facility] Jun 08, 2020 09:00 AM VA-TOBACCO USE WI 30 MIN OF WAKEUP [facility] [place] [facility] Jun 08, 2020 09:00 AM VA-TOBACCO USER EVERY DAY [facility] [place] [facility] Feb 01, 2019 02:27 PM VA-TOBACCO USE 30 YEARS OR MORE [facility] [place] [facility] Feb 01, 2019 02:27 PM VA-TOBACCO USE ADVICE [facility] [place] [facility] Feb 01, 2019 02:27 PM [facility] Feb 01, 2019 02:27 PM [facility] MED [facility] Feb 01, 2019 02:27 PM VA-TOBACCO USE WI 30 MIN OF WAKEUP [facility] Feb 01, 2019 02:27 PM VA-TOBACCO USER EVERY DAY [facility] Apr 02, 2018 02:47 PM CURRENT [facility]KER [place] [facility] Apr 02, 2018 02:47 PM V1-PT DECLINES REF TO TOBACCO CESS PRGM [facility] Apr 02, 2018 02:47 PM V1-PT DECLINES TOB ACCO CESSATION MEDS [facility] Apr 02, 2018 02:47 PM V1-PT THINKING ABO UT QUIT TOBACCO USE [facility] Radiology Reports: +/- 30 days of the [...] the Encounter. The data comes from all [facility] facilities. Date/Time Radiology Report Provider Source Feb 02, 2025 08:57 AM MRI BRAIN W/WO CONTRAST: KINGSTON RENDON [id number] Ex Date: FEB 02, 2025@08:57 Req Phys: JEEVAN RILEY Loc: [facility] ENDOCRINE 1 (Req'g Loc) Img Loc: [facility] MRI Service: Unknown [facility] MALIKA HAYES [id number] (Case [id number] COMPLETE) MRI BRAIN W/WO CONTRAST (MRI Detailed) CPT:31709 Contrast Media : Gadolinium Reason for Study: Pituitary adenoma, worsening vision Clinical History: PLEASE NOTE If patient is claustrophobic consider ordering anti-anxiety medication prior to MRI. Safety Assessment: You must answer ALL questions or this questionnaire is not captured. Ordering provider, phone number and beeper:Hang Maurer RN [phone] Weight: 205 lb [92.99 kg] (01/20/2025 [...] 02, 2025 Date Verified: FEB 02, 2025 [employer] E-Sig:/ES/ASHANTI ROMERO Report: PITUITARY MRI W/WO: CLINICAL INDICATION: Reason for Study: Pituitary adenoma, worsening vision PLEASE NOTE If patient is claustrophobic consider ordering anti-anxiety medication prior to MRI. Safety Assessment: You must answer ALL questions or this questionnaire is not captured. Ordering provider, phone number and beeper:Hang Maurer RN [phone] Weight: 205 l REASON FOR STUDY: [...] the junction of the adeno and neurohypophysis. [place] gland: Normal volume and positioned within the [...] Primary Interpreting Staff: ASHANTI ROMERO, Staff Physician ([employer]) /ASHANTI CODY [facility] Feb 02, 2025 08:28 AM BONE DENSITY DXA: KINGSTON RENDON [id number] 1955 [facility] Date: FEB 02, 2025@08:28 Req Phys: JEEVAN RILEY Loc: [facility] ENDOCRINE MD 1 (Req'g Loc) Im Loc: [facility] 1 Service: [place] [address] (Case [id number] COMPLETE) BONE DENSITY AXIAL-DXA (RAD Detailed) CPT:19110 Reason for Study: osteoporosis Clinical History: Report Status: Verified Date Reported: FEB 02, 2025 Date Verified: FEB 02, 2025 [employer] E-Sig:/LOLLY/AUSTIN GARCIA Report: DXA BONE DENSITY AXIAL: 02/02/2025 [...] MODEL: The exam was performed on a [employer] A system at [place], [place]. YOUNG AGE Bone Mineral ADULT [...] Primary Interpreting Staff: AUSTIN GARCIA, Staff Physician ([employer]) /AUSTIN MORRIS [facility] Jan 21, 2025 10:[address] THORAX W/O CONT: KINGSTON RENDON [id number] -[id number] M Exm Date: JAN 21, 2025@10:07 Req Phys: SHERLYN BRADLEY Loc: [facility] PACT 7 PERSONAL CARE WORKER (Req'g Loc) Img Loc: [facility]/CT Service: Unknown [facility] MALIKA HAYES [id number] (Case [id number] COMPLETE) CT THORAX W/O CONT (CT Detailed) CPT:64004 Reason for Study: 3 mos follow up Clinical History: 10/21/2024 found to have a new 7.4mm nodule right upper lobe, follow up due January 19, 2025 Report Status: Verified Date Reported: JAN 21, 2025 Date Verified: JAN 21, 2025 [employer] E-Sig:/ES/AUSTIN GARCIA Report: Exam: CT chest without [...] Primary Interpreting Staff: AUSTIN GARCIA, Staff Physician ([employer]) /AUSTIN MORRIS [place] [facility] Encounter Notes: All associated encounter notes This section contains the clinical notes associated to the Encounter. Date/Time Encounter Note(s) Provider Source February 14, 2025 08:41 AM RN PROGRESS NOTE: LOCAL TITLE: CCC: CLINICAL TRIAGE STANDARD TITLE: RN PROGRESS NOTE DATE OF NOTE: FEBRUARY 14, 2025@08:41:09 ENTRY DATE: FEBRUARY 14, 2025@08:41:09 AUTHOR: WALLACE UNDERWOOD COSIGNER: URGENCY: STATUS: COMPLETED Caller Verification Current Location: [address] [place] [address] Caller/Recipient Relation to Patient: Self Caller Name: KINGSTON RENDON Emergency Contact: RASHAD WHEELER Triage Summary Conducted triage/discussed symptoms Utilized the Triage Tool: Yes Chief Complaint: Dyspnea System WHEN: Now, 911 Nurse's Recommendation / WHEN: 911 System WHERE: Emergency department Nurse's Recommendation / WHERE: ED Other WHEN/WHERE modifier reason: Distance from Hospital COVID Screening Patient confirms the following symptoms Cough Fatigue Shortness of breath POSITIVE symptom/s or exposure Patient Disposition Patient/Caregiver agrees to plan of care: No Patient WHERE: ED Other Patient WHEN: Now Patient is Urgent or Emergent Nursing Plan and Disposition Referred patient to higher level of care Instructed to go to Emergency Room (ER) Advised of Financial Disclaimer: Patient advised that recommendation for care provided during the call does not constitute an approval or authorization for payment by the [place] or its staff. Patient advised to report a community ED visit to the [facility] Office of Community Care at within 72 hours. Nurse Summary Nurse Summary: Rafael called with complaints of rash all over his body for 4 days. has dyspnea, cough and fatigue for the past 3 days. As per he has hx of COPD, however, the breathing is worst than his usual. also reports that he has rash on his bilateral arms, legs and torso. As per Rafael the rash is red and itchy. believes that his rash is from the 2 new medication that he has been taking for the past 2-3 weeks, diltiazem and eliquis. As per , he stopped taking both medication due to concerns of allergy to the medication. Denies chest pain, fever, chills, nausea, vomiting and diarrhea. Advised to go to ED and call 911 for further evaluation and care. Gwynn refused on calling 911 and insist that he can drive himself to the ED. Discussed with Gwynn risk of driving, verbalized understanding. Advised to call the [facility] Emergency Notification Centralized Call Center @ [phone] within 72 hours of presenting at non-VA ED. [address] [address] Clinical Contact Center Codes Clinic/Location: V1 CWM PHONE CCC RN Decision Support System Output: Triage Complete Triage Date: 02/14/2025, 08:36 AM Triage Note: Decision Support Tool Used: TXCC Phone Triage 14 Feb 2025 12:30:13 +0000 [place] Demographics 69 y/o Male Results CC: Dyspnea Software suggested: 911 Software suggested follow-up location: Emergency department Values and Measures Duration of CC: 3 Days Positive Responses HPI: dyspnea, severe VS: temperature not taken Negative Responses Denies: HPI: chest pain Denies: HPI: cough, new or worsening Denies: HPI: wheezing, new or worsening Denies: PMH: CHF Education Verbal Education Provided: Based on your responses, you should be treated in the emergency room. Take action: You need to see a provider now or your condition could worsen. Consider calling an ambulance. IMPORTANT: This note was created by [facility] Clinical Contact Center staff. Please do not alert the staff member by adding them as a signer for future communications. Alerts are not monitored by this user. /lolly/ WALLACE UNDERWOOD RN VISN 2 CCC RN Signed: 02/14/2025 08:41 Receipt Acknowledged By: 02/14/2025 13:56 /es/ Alonso Bolanos, Health Blast Hole Driller SLUG PRESS OPERATOR,PRIMARY CARE 02/14/2025 12:02 /es/ CONNOR BYNUM, RN, CNL Primary Care WALLACE DE JESUS [facility]
--- OUTSIDE RECORDS SUMMARY | 2025-02-15 09:12 | XMS_ITS | Encounter Summary ---
Author Name [facility] [place] [facility] [place] Address [address] [place] [id number] Care Team Providers Care Battery Inspector Name Role Phone SHERLYN LENTZ Primary Care Provider [facility] Insurance Providers: All historical and [...] PART B Apr 05, 2020 PART B [id number] MIGUELITOCOCO FRANKLINNDER PATIENT MEDICARE (WNR) MEDICARE (M) PART A Mar 06, 2019 PART A [id number] NIKOLEDEEJAYMary JoCOCO PATIENT Selected Encounter This section includes the information on record at [place] for the Encounter. Date/Time Encounter Type Encounter Description Reason Provider Source Jan 20, 2025 08:00 AM OFFICE O/P EST MOD 30 MIN ENDOCRINOLOGY ICD-10-CM M81.0 Age-related osteoporosis w/o current pathological fracture JEEVAN RILEY Encounter Template Text not used by [facility] Assessments - Encounter Diagnoses This section includes the primary and secondary diagnoses documented for the Encounter. Date/Time Primary/Secondary Diagnosis Diagnosis Name Provider Source Jan 20, 2025 08:22 AM PRIMARY Age-related osteoporosis w/o current pathological fracture JEEVAN RILEY [place] [facility] [facility] [place] [facility] Jan 20, 2025 08:22 AM SECONDARY Benign neoplasm of pituitary gland JEEVAN RILEY [place] [facility] [place] [facility] Jan 20, 2025 08:22 AM SECONDARY Hypo-osmolality and hyponatremia [facility]EEVAN RILEY [facility] Plan of Treatment: Future Appointments (+ 6 months) and Future Tests (+/- 45 days) The Plan of Treatment section includes future care activities for the patient from all [place] [facility]. This section includes future appointments and future orders which are active, pending or scheduled. Future Appointments This section includes appointments that were scheduled to occur 6 months from the date of the Encounter, up to a maximum of 20 appointments. The data comes from all [place] treatment facilities. Appointment Date/Time Appointment Type Appointme nt Facility Name Jan 21, 2025 10:15 AM AMBULATORY - NONE [place] [facility] [facility] Jan 24, 2025 02:00 PM AMBULATORY - MEDICINE [place] [facility] [facility] Jan 24, 2025 03:30 PM AMBULATORY - MEDICINE [place] [facility] [facility] Feb 02, 2025 08:15 AM AMBULATORY - NONE [place] [facility] [place] [facility] Feb 02, 2025 09:00 AM AMBULATORY - NONE [place] [facility] [facility] February 17, 2025 09:00 AM AMBULATORY - MEDICINE [facility] Active, Pending, and Scheduled Orders This section includes a listing of several types of active, pending, and scheduled orders, including clinic medications orders, diagnostic test orders, procedure orders and consult orders; where the start date of the order is 45 days before the date of the Encounter or 45 days after the date of theEncounter. The data comes from all [place] treatment facilities. Test Date/Time Test Type Test Details Facility Name Jan 20, 2025 12:00 AM Laboratory - Chemi stry Order BASIC METABOLIC PANEL (non-fasting) BLOOD (SST-SERUM) [facility] [place] [facility] Jan 24, 2025 03:22 PM Consult Order COMMUNITY CARE-OPHTHALMOLOGY Cons Plastics Technician's Choice [place] [facility] [facility] Jan 25, 2025 02:39 PM Consult Order COMMUNITY CARE-CARDIOLOGY Cons Plastics Technician's Choice [facility] [place] [facility] February 10, 2025 12:00 AM Imaging - General Radiology Order OUTSIDE MRI BRAIN W/WO CONTRAST [facility] [place] [facility] Lab Results: +/- 30 days of [...] Type Comment Jan 17, 2025 09:54 AM [facility] FREE T4 SERUM Specimen Type: SERUM No comment entered. Ordering Provider: JEEVAN RILEY Report Released Date/Time: Jan 16, 2025 03:25 PM Reporting Lab: [facility] [address] [address] Performing Lab: [facility] [place] [facility] [address] [facility] [address] FREE T4 1.29 ng/dL 0.70-1.48 Jan 17, 2025 09:54 AM [facility] CALCIUM SERUM Specimen Type: SERUM No comment entered. Ordering Provider: JEEVAN RILEY Report Released Date/Time: Jul 18, 2024 06:58 PM Reporting Lab: [facility] [address] [address] Performing Lab: [facility] [address] [facility] [address] CALCIUM 9.9 mg/dL 8.8-10 Jan 17, 2025 09:54 AM [facility] VITAMIN D (25-OH) SERUM Specimen Type: SERUM No comment entered. Ordering Provider: JEEVAN RILEY Report Released Date/Time: Jul 18, 2024 06:58 PM Reporting Lab: [facility] [address] [address] Performing Lab: [facility] [address] [address] VITAMIN D (25-OH) 46.2 ng/mL 20-50 Jan 17, 2025 09:54 AM [facility] BASIC METABOLIC PANEL (non-fasting) SERUM Spe cimen Type: SERUM No comment entered. Ordering Provider: JEEVAN RILEY Report Released Date/Time: Jul 18, 2024 06:58 PM Reporting Lab: [address] [address] Performing Lab: [address] [address] UREA NITROGEN 39 mg/dL H 8-26 GLUCOSE 109 mg/dL H 65-100 SODIUM 140 mmol/L 136-145 POTASSIUM 5.0 mmol/L 3.5-5.1 CHLORIDE 102 mmol/L 98-107 CO2 26 meq/L 23-31 CALCIUM 9.9 mg/dL 8.8-10 CREATININE, Serum 1.46 mg/dL H 0.72-1.25 eGFR(CKD-EPI 2020) 51 mL/min L >60 Vital Signs: All taken on the encounter date This section contains inpatient and outpatient Vital Signs collected on the date of the Encounter. Date/Time Temperature Pulse Blood Pressure Respiratory Rate SP02 Pain Height Weight Body Mass Index Source Jan 20, 2025 07:59 AM 98.1 160 101/67 16 96 0 68 205 31 [facility] Social History: Smoking Status (Most current) [...] Dinesh ity Sep 14, 2024 08:00 AM [place]-TOBACCO USE ОЛЕГ RY DAY CIGARETTES [facility] Tobacco Use History This section includes a history of the smoking, or tobacco-related health factors, that were collected on or before the date of the Encounter. The data comes from the [place] facility where the Encounter took place. Date/Time Smoking Status/Tobacco Use Comment F acility Sep 14, 2024 08:00 AM VA-TOBACCO SCREEN FOLLOW-UP [facility] [place] [facility] Sep 14, 2024 08:00 AM VA-TOBACCO USE ADVICE [facility] [place] [facility] Sep 14, 2024 08:00 AM VA-TOBACCO USE SOCIAL WORK FACULTY MEMBER NO [facility] [place] [facility] Sep 14, 2024 08:00 AM VA-TOBACCO USE ОЛЕГ RY DAY CIGARETTES [facility] [place] [facility] Sep 14, 2024 08:00 AM VA-TOBACCO USE MED NO [facility] [place] [facility] Sep 04, 2023 01:14 PM VA-TOBACCO USE 30 YEARS OR MORE [facility] [place] [facility] Sep 04, 2023 01:14 PM VA-TOBACCO USE ADVICE [facility] [place] [facility] Sep 04, 2023 01:14 PM VA-TOBACCO USE SOCIAL WORK FACULTY MEMBER NO [facility] [place] [facility] Sep 04, 2023 01:14 PM VA-TOBACCO USE MED NO [facility] [place] [facility] Sep 04, 2023 01:14 PM VA-TOBACCO USE WI 30 MIN OF WAKEUP [place] [facility] [facility] Sep [...] Oct 01, 2022 09:45 AM VA-TOBACCO USE SOCIAL WORK FACULTY MEMBER NO [facility] [place] [facility] Sep 07, 2021 10:30 AM VA-TOBACCO USE SOCIAL WORK FACULTY MEMBER NO [facility] [place] [facility] [...] Jun 08, 2020 09:00 AM VA-TOBACCO USE SOCIAL WORK FACULTY MEMBER NO [facility] [place] [facility] [...] Feb 01, 2019 02:27 PM VA-TOBACCO USE SOCIAL WORK FACULTY MEMBER NO [facility] [place] [facility] CESS PRGM [facility] [place] [facility] Apr 02, 2018 02:47 PM V1-PT DECLINES TOB ACCO CESSATION MEDS [facility] Apr 02, 2018 02:47 PM V1-PT THINKING ABO UT QUIT TOBACCO USE [facility] Radiology Reports: +/- 30 days of [...] the Encounter. The data comes from all [facility] facilities. Date/Time Radiology Report Provider Source Feb 02, 2025 08:57 AM MRI BRAIN W/WO CONTRAST: KINGSTON RENDON [id number] -[id number] M Exm Date: FEB 02, 2025@08:57 Req Phys: JEEVAN RILEY Loc: [facility] ENDOCRINE 1 (Req'g Loc) Img Loc: [facility] MRI Service: [place] [address] (Case [id number] COMPLETE) MRI BRAIN W/WO CONTRAST (MRI Detailed) CPT:60132 Contrast Media : Gadolinium Reason for Study: Pituitary adenoma, worsening vision Clinical History: PLEASE NOTE If patient is claustrophobic consider ordering anti-anxiety medication prior to MRI. Safety Assessment: You must answer ALL questions or this questionnaire is not captured. Ordering provider, phone number and beeper:Hang Maurer RN [phone] Weight: 205 lb [92.99 kg] (01/20/2025 [...] 02, 2025 Date Verified: FEB 02, 2025 Editor E-Sig:/ES/ASHANTI ROMERO Report: PITUITARY MRI W/WO: CLINICAL INDICATION: Reason for Study: Pituitary adenoma, worsening vision PLEASE NOTE If patient is claustrophobic consider ordering anti-anxiety medication prior to MRI. Safety Assessment: You must answer ALL questions or this questionnaire is not captured. Ordering provider, phone number and beeper:Hang Maurer RN [phone] Weight: 205 l REASON FOR STUDY: [...] the junction of the adeno and neurohypophysis. [place] gland: Normal volume and positioned within the [...] Primary Interpreting Staff: ASHANTI ROMERO, Staff Physician (Editor) /ASHANTI CODY [facility] Feb 02, 2025 08:28 AM BONE DENSITY DXA: KINGSTON RENDON Jarrod [id number] -1955 M Exm Date: FEB 02, 2025@08:28 Req Phys: JEEVAN RILEY Loc: [facility] ENDOCRINE MD 1 (Req'g Loc) Img Loc: [facility] Service: [place] [address] (Case [id number] COMPLETE) BONE DENSITY AXIAL-DXA (RAD Detailed) CPT:13142 Reason for Study: osteoporosis Clinical History: Report Status: Verified Date Reported: FEB 02, 2025 Date Verified: FEB 02, 2025 Editor E-Sig:/ES/AUSTIN GARCIA Report: DXA BONE DENSITY AXIAL: [...] MODEL: The exam was performed on a [employer] A system at [place], [place]. YOUNG AGE Bone Mineral ADULT [...] Primary Interpreting Staff: AUSTIN GARCIA, Staff Physician (Editor) /AUSTIN MORRIS [facility] Jan 21, 2025 10:[address] THORAX W/O CONT: KINGSTON RENDON [id number] -1955 M Exm Date: JAN 21, 2025@10:07 Req Phys: SHERLYN LENTZ Loc: [facility] PACT 7 INVENTORY CLERK (Req'g Loc) Img Loc: [facility]/CT Service: [place] [address] (Case [id number] COMPLETE) CT THORAX W/O CONT (CT Detailed) CPT:04220 Reason for Study: 3 mos follow up Clinical History: 10/21/2024 found to have a new 7.4mm nodule right upper lobe, follow up due January 19, 2025 Report Status: Verified Date Reported: JAN 21, 2025 Date Verified: JAN 21, 2025 Editor E-Sig:/ES/AUSTIN GARCIA Report: Exam: CT chest without [...] Primary Interpreting Staff: AUSTIN GARCIA Staff Physician (Editor) /[place] MORRIS [place] [facility] Encounter Notes: All associated encounter notes This section contains the clinical notes associated to the Encounter. Date/Time Encounter Note(s) Provider Source Jan 25, 2025 02:39 PM PRIMARY CARE NURSE PRACTITIONER OUTPATIENT NOTE: LOCAL TITLE: NURSE PRACTITIONER OUTPATIENT NOTE STANDARD TITLE: PRIMARY CARE NURSE PRACTITIONER OUTPATIENT NOTE DATE OF NOTE: JAN 25, 2025@14:39 ENTRY DATE: JAN 25, 2025@14:39:35 AUTHOR: SHERLYN LENTZ COSIGNER: URGENCY: STATUS: COMPLETED New onset of afib, i placed consult for cardiology. /lolly/ Sherlyn Lentz DNP, [employer] I ASSEMBLER-BC, CNL Primary Care Nurse Practitioner Signed: 01/25/2025 14:39 SHERLYN LENTZ [place] [facility] [facility] [facility] Jan 20, 2025 08:29 AM ADDENDUM: LOCAL TITLE: Addendum STANDARD TITLE: ADDENDUM DATE OF NOTE: JAN 20, 2025@08:29:26 ENTRY DATE: JAN 20, 2025@08:29:28 AUTHOR: JEEVAN RILEY COSIGNER: URGENCY: STATUS: COMPLETED Requesting Dr. Parks to facilitate visit -- decreasing vision in past two mos. /lolly/ JEEVAN RILEY MD STAFF PHYSICIAN Signed: 01/20/2025 08:31 Receipt Acknowledged By: 01/21/2025 08:16 /lolly/ Patel Parks OD CHIEF OF OPTOMETRY === --- Original Document --- 01/20/25 NOTE: CC: Benign pituitary neoplasm, Hyponatremia, osteoporosis, (central) hypothyroidism HPI: Chronic WILKINS with exertion. Noting worsening vision, particularly in past two months. States no visual field limitations. Does not have an optometry appointment. 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 Last calcium and vitamin D fills 09/20/2024. He has related that he was recommended dental extractions, but that he has been unsure he wishes to proceed. Last demeclocycline fill 07/2024. All recent endocrine labs were reviewed with the patient. Jan 17, 2025@09:54 SERUM VITAMIN D (25-OH): 46.2 ng/mL 20 - 50 Jan 17, 2025@09:54 SERUM FREE T4: 1.29 ng/dL 0.70 - 1.48 Jan 17 2025 GLUCOSE 109 H mg/dL 65 - 100 BUN 39 H mg/dL 8 - 26 CREATININE 1.46 H mg/dL 0.72 - 1.25 Sodium 140 mmol/L 136 - 145 K+/Pot 5.0 mmol/L 3.5 - 5.1 CL 102 mmol/L 98 - 107 CO2 26 mEq/L 23 - 31 CA 9.9 mg/dL 8.8 - 10 FEBRUARY 11, 2023 DEXA scan. Comparison: None. Findings: Measurement of bone mineral content gives a T score of -2.5 in the hip, and -1.2 in the lumbar spine. Active problems - Computerized Problem List is the source for the followin. Solitary nodule of lung 2. Alcohol intake exceeds recommended daily limit 3. Hyponatremia 4. Multiple nodules of lung 5. Osteoporosis 6. Benign neoplasm of pituitary gland 7. Diplopia 8. Hypothyroid 9. Polyp Colon ([facility] [id number]) 10. Aneurysm of thoracic aorta 11. HTN - Hypertension ([facility] [id number]) 12. Hyperlipidemia ([facility] [id number]) 13. Chronic obstructive lung disease 14. Tobacco user 15. Elevated blood-pressure reading without diagnosis of hypertension 16. Dyspnea ([facility] [id number]) 17. Diagnosis or Condition Deferred on [place] Active Outpatient Medications (including Supplies): Active Outpatient Medications Status === 1) ALBUTEROL 90MCG (CFC-F) 200D ORAL INHL [...] TAKE ONE TABLET BY MOUTH TWICE ACTIVE not sure if taking DAILY Indication: FOR INFECTION 5) FLUTICAS 250/SALMETEROL [...] WITH FOOD; /INFLAMMATION/SWELLING Indication: FOR PAIN 10) THEOPHYLLINE 400MG 24HR SA TAB TAKE ONE TABLET BY MOUTH ONCE ACTIVE DAILY 11) TIOTROPIUM 2.5MCG/ACTUAT 60D ORAL INHL INHALE 2 PUFFS BY ACTIVE MOUTH ONCE DAILY THIS REPLACES TIOTROPIUM HANDIHALER CAPSULES Active Non-VA Medications Status === 1) Non-VA OXYGEN MISCELLANEOUS DIRECTED ACTIVE SHx: Lives with sister ROS: Chronic cough no fever PE: affect pleasant appropriate speaking easily in full sentences A/P: Active problems - Computerized Problem List is the source for the followin. Hyponatremia He will call about whether he is taking demeclocycline He will repeat BMP off furosemide for a few days, and will omit for a few days prior to MRI 5. Osteoporosis bone density now continue calcium and vitamin D 6. Benign neoplasm of pituitary gland Mri pituitary now, facilitate eye exam Six months FTF preferred by pt. Medication Reconciliation: Outpatient: Medication Reconciliation was attempted at this encounter, but unable to complete: Patient/Caregiver unable to confirm all the medications the patient is taking. /galina RILEY MD STAFF PHYSICIAN Signed: 01/20/2025 08:22 01/20/2025 ADDENDUM STATUS: COMPLETED Free T4, calcium, bmp vitamin D next visit. BMP ordered for prior to MRI /galina RILEY MD STAFF PHYSICIAN Signed: 01/20/2025 08:23 01/20/2025 ADDENDUM STATUS: COMPLETED Notes both heat and cold intolerance. No tremor, some diarrhea last week, generally no. No black tarry stools. Repeated VS EKG New atrial fibrillation. He is transferred to ER via ambulance, with his agreement. /lolly/ JEEVAN RILEY MD STAFF PHYSICIAN Signed: 01/20/2025 08:52 JEEVAN RILEY [facility] Jan 20, 2025 07:59 AM PHYSICIAN NOTE: LOCAL TITLE: MD NOTE STANDARD TITLE: PHYSICIAN NOTE DATE OF NOTE: JAN 20, 2025@07:59 ENTRY DATE: JAN 20, 2025@07:59:03 AUTHOR: JEEVAN RILEY EXP COSIGNER: URGENCY: STATUS: COMPLETED NOTE Has ADDENDA CC: Benign pituitary neoplasm, Hyponatremia, osteoporosis, (central) hypothyroidism HPI: Chronic WILKINS with exertion. Noting worsening vision, particularly in past two months. States no visual field limitations. Does not have an optometry appointment. 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 Last calcium and vitamin D fills 09/20/2024. He has related that he was recommended dental extractions, but that he has been unsure he wishes to proceed. Last demeclocycline fill 07/2024. All recent endocrine labs were reviewed with the patient. Jan 17, 2025@09:54 SERUM VITAMIN D (25-OH): 46.2 ng/mL 20 - 50 Jan 17, 2025@09:54 SERUM FREE T4: 1.29 ng/dL 0.70 - 1.48 Jan 17 2025 GLUCOSE 109 H mg/dL 65 - 100 BUN 39 H mg/dL 8 - 26 CREATININE 1.46 H mg/dL 0.72 - 1.25 Sodium 140 mmol/L 136 - 145 K+/Pot 5.0 mmol/L 3.5 - 5.1 CL 102 mmol/L 98 - 107 CO2 26 mEq/L 23 - 31 CA 9.9 mg/dL 8.8 - 10 FEBRUARY 11, 2023 DEXA scan. Comparison: None. Findings: Measurement of bone mineral content gives a T score of -2.5 in the hip, and -1.2 in the lumbar spine. Active problems - Computerized Problem List is the source for the followin. Solitary nodule of lung 2. Alcohol intake exceeds recommended daily limit 3. Hyponatremia 4. Multiple nodules of lung 5. Osteoporosis 6. Benign neoplasm of pituitary gland 7. Diplopia 8. Hypothyroid 9. Polyp Colon ([facility] [id number]) 10. Aneurysm of thoracic aorta 11. HTN - Hypertension ([facility] [id number]) 12. Hyperlipidemia ([facility] [id number]) 13. Chronic obstructive lung disease 14. Tobacco user 15. Elevated blood-pressure reading without diagnosis of hypertension 16. Dyspnea ([facility] [id number]) 17. Diagnosis or Condition Deferred on [place] I Active Outpatient Medications (including Supplies): Active Outpatient Medications Status === 1) ALBUTEROL 90MCG (CFC-F) 200D ORAL INHL [...] TAKE ONE TABLET BY MOUTH TWICE ACTIVE not sure if taking DAILY Indication: FOR INFECTION 5) FLUTICAS 250/SALMETEROL [...] WITH FOOD; /INFLAMMATION/SWELLING Indication: FOR PAIN 10) THEOPHYLLINE 400MG 24HR SA TAB TAKE ONE TABLET BY MOUTH ONCE ACTIVE DAILY 11) TIOTROPIUM 2.5MCG/ACTUAT 60D ORAL INHL INHALE 2 PUFFS BY ACTIVE MOUTH ONCE DAILY THIS REPLACES TIOTROPIUM HANDIHALER CAPSULES Active Non-VA Medications Status === 1) Non-VA OXYGEN MISCELLANEOUS DIRECTED ACTIVE SHx: Lives with sister ROS: Chronic cough no fever PE: affect pleasant appropriate speaking easily in full sentences A/P: Active problems - Computerized Problem List is the source for the followin. Hyponatremia He will call about whether he is taking demeclocycline He will repeat BMP off furosemide for a few days, and will omit for a few days prior to MRI 5. Osteoporosis bone density now continue calcium and vitamin D 6. Benign neoplasm of pituitary gland Mri pituitary now, facilitate eye exam Six months FTF preferred by pt. Medication Reconciliation: Outpatient: Medication Reconciliation was attempted at this encounter, but unable to complete: Patient/Caregiver unable to confirm all the medications the patient is taking. /galina RILEY MD STAFF PHYSICIAN Signed: 01/20/2025 08:22 01/20/2025 ADDENDUM STATUS: COMPLETED Free T4, calcium, bmp vitamin D next visit. BMP ordered for prior to MRI /galina RILEY MD STAFF PHYSICIAN Signed: 01/20/2025 08:23 01/20/2025 ADDENDUM STATUS: COMPLETED Notes both heat and cold intolerance. No tremor, some diarrhea last week, generally no. No black tarry stools. Repeated VS EKG New atrial fibrillation. He is transferred to ER via ambulance, with his agreement. /galina RILEY MD STAFF PHYSICIAN Signed: 01/20/2025 08:52 01/20/2025 ADDENDUM STATUS: COMPLETED Requesting Dr. Parks to facilitate visit -- decreasing vision in past two mos. /galina RILEY MD STAFF PHYSICIAN Signed: 01/20/2025 08:31 Receipt Acknowledged By: * AWAITING SIGNATURE * PATEL PARKS ALICE [facility]
[2025-02-15 09:13] LABS: VBG HCO3 45 mmol/L (22-26); VBG pCO2 66 mmHg; VBG pH 7.44 (7.32-7.43); VBG pO2 32 mmHg
[2025-02-15 09:14] LABS: Venous Blood Gas Refer to POC result
--- NOTE | 2025-02-15 09:20 | PC.NURSE ---
Pt received and seen by provider on arrival- SOB but resolving after tx. Interventions done except awaiting Solumedrol from Pharmacy. HR elevated. Provider aware - VBG sent.Pt sitting upright- no other acute distress.
[2025-02-15 09:23] LABS: Alanine Aminotransferase 10 U/L (0-40); Albumin Level 3.9 g/dL (3.5-5.0); Alkaline Phosphatase 124 U/L (39-117); Anion Gap 19 (12-20); Aspartate Amino Transferase 34 U/L (5-37); Bilirubin Total 0.7 mg/dL (0.0-1.0); Blood Urea Nitrogen 18 mg/dL (9-16); Calcium 9.9 mg/dL (8.4-10.2); Carbon Dioxide 33 mmol/L (22-29); Chloride 90 mmol/L (96-108); Creatinine Clr Calc Pharmacy 77.1; Estimated Glomerular Filt Rate > 60; Glucose Random 122 mg/dL (60-115); Potassium 3.4 mmol/L (3.3-5.1); Sodium 139 mmol/L (135-145); Total Protein 7.1 g/dL (6.5-8.0)
[2025-02-15 09:31] LABS: Troponin-I High Sensitivity 9.3 ng/L (<3.5-35.0)
[2025-02-15] MEDS: Digoxin 0.5 MG/2 ML AMPUL 0.25 MG IVPUSH ×2 (10:15→15:56)
--- NOTE | 2025-02-15 11:51 | PM.IMHP ---
History of Present Illness Date of Service: 02/15/25 Attending physician on admission: Shyam Palma Chief Complaint: Afib, COPD execrabation 69-year-old male with a past medical history of COPD, oxygen dependent at home at 3 L, history of newly diagnosed AFib with RVR 3 weeks ago, hyperlipidemia, hypothyroidism, pulmonary nodules, history of EtOH who presented to the ED after reporting that he developed a rash all over his body. He was started on Eliquis and diltiazem for newly diagnosed AFib, he stopped these due to the rash 5 days ago. Per external notes he was seen in the [place] for a checkup he was found to be in AFib with RVR on 01/20/2025 and was sent to the ED for evaluation. He was seen at [facility] ED where he was given a dose of diltiazem and his heart rate converted back into sinus. He was seen by Dr. Suarez in the ED who was started on Eliquis and diltiazem, it was recommended that he was admitted Ta that time but he requested to be DC home and was given a prescription for Eliquis and diltiazem. Presents today with shortness of breath worsened 1 day ago. Patient reports that he drinks 1.75 L of hard liquor over a 4 day period. Reports that he is a daily drinker for years. Patient reports that he stopped smoking for months ago but he occasionally has a cigarette. Denies any drug use. Patient is followed by the [place] as an outpatient. Here in the ED he was found to have a WBC of 13.1, H&H 11.7/34.9, ABGs within normal limits. BUN/CREAT 18/ 1.0. Chest x-ray with no active disease. Troponin negative. He received a dose of Solu-Medrol in the emergency room, started on a Cardizem drip, received a dose of IV digoxin. Restarted on Xarelto due to possible allergy to Eliquis. He received nebulization treatments in the ED. He reported that he developed a rash all over his body although no rashes present on exam. Trace edema. Patient had a echo in November that showed a LVEF of 70%. He has been seen by Dr. Ramos most recently for severe COPD. He was started on furosemide for orthopnea and edema with improvement by Dr. Ramos. Review of Systems Review of Systems: He reports shortness of breath at his baseline, denies any chest pain, denies any headaches dizziness lightheadedness itchiness or any other concerning symptoms. REPLACED BY [facility] Cognitive capacity: Severe COPD Oxygen dependence AFib with RVR Hypothyroidism Daily EtOH consumption Hyperlipidemia Pertinent family history: Father hypertension Mother hypertension Social History (Updated 02/15/25 @ 12:22 by Skylar Miller DNP) Household Members: Family Housing: House Do you presently have visiting nurse or other home services: No Alcohol intake: current Comment: Reports 1.75 L hard liquor over a 4 day period daily Patient Tobacco Use Status: Former Tobacco user Tobacco use type: Cigarette Years Smoked: started at age 12, 2-3 PPD, quit 10/16/2024 Meds Allergies Allergy/AdvReac Type Severity Reaction Status Date / Time hydrochlorothiazide AdvReac Severe Rash Verified 02/15/25 08:12 Active Medications: Current Medications Acetaminophen (Acetaminophen 325 Mg Tablet) 650 mg PO Q6H PRN PRN Reason: Pain, Mild 1-3,fever,headache Benzonatate (Benzonatate 100 Mg Capsule) 100 mg PO TID PRN PRN Reason: Cough Calcium Carbonate (Calcium Carbonate 750 Mg Tab.Chew) 750 mg PO Q4H PRN PRN Reason: Heartburn Albuterol Sulfate 2.5 mg/ (Albuterol/Ipratropium 3 ml) 0 mg INHALE QID PRN PRN Reason: Shortness of Breath/Wheezing Stop: 02/15/25 11:41 Doxycycline Monohydrate (Doxycycline Monohydrate 100 Mg Capsule) 100 mg PO BID@0800,1500 [facility] Stop: 02/20/25 14:59 Diltiazem HCl 125 mg/ Sodium (Chloride) 125 mls @ 0 mls/hr IVCONT .Q0M [facility]; Protocol Last Titration: 02/15/25 09:24 Dose: 15 mg/hr, 15 mls/hr Lorazepam (Lorazepam 0.5 Mg Tablet) 0.5 mg PO Q4H PRN PRN Reason: Breakthrough alcohol withdrawa Stop: 02/19/25 11:17 Magnesium Hydroxide (Milk Of Magnesia 30 Ml Oral.Susp) 30 ml PO DAILY PRN PRN Reason: Constipation Melatonin (Melatonin 3 Mg Tablet) 6 mg PO BEDTIME PRN PRN Reason: Insomnia Methylprednisolone Sodium Succinate (Methylprednisolone Sod Succ 40 Mg/Ml Vial) 40 mg IVPUSH BID@0800,1500 [facility] Ondansetron HCl (Ondansetron Hcl 4 Mg/2 Ml Vial) 4 mg IVPUSH Q8H PRN PRN Reason: Nausea and Vomiting Polyethylene Glycol (Polyethylene Glycol 3350 17 Gm Powd.Pack) 17 gm PO DAILY PRN PRN Reason: Constipation Rivaroxaban (Rivaroxaban 20 Mg Tablet) 20 mg PO DAILY [facility] Sodium Chloride (0.9 % Sodium Chloride Flush 3 Ml Syringe) 3 ml IVFLUSH QSHIFT [facility] Home Medications ?Medication ?Instructions ?Recorded ?Confirmed ?Last Taken ?Type albuterol sulfate 2.5 mg/3 mL 2.5 mg inhalation Q6H 10/18/24 02/15/25 02/14/25 History (0.083 %) solution for nebulization albuterol sulfate 90 mcg/actuation 2 puff inhalation Q4-6H PRN 10/18/24 02/15/25 02/14/25 History aerosol inhaler Shortness Of Breath Or Wheezing atorvastatin 40 mg tablet 40 mg PO DAILY 10/18/24 02/15/25 02/14/25 History cholecalciferol (vitamin D3) 25 25 mcg PO DAILY 10/18/24 02/15/25 02/14/25 History mcg (1,000 unit) tablet fluticasone 250 mcg-salmeterol 50 1 inh inhalation BID 10/18/24 02/15/25 02/14/25 History mcg/dose blistr powdr for inhalation levothyroxine 88 mcg tablet 88 mcg PO DAILY@0600 10/18/24 02/15/25 02/14/25 History tiotropium bromide 2.5 2 puff inhalation DAILY 10/18/24 02/15/25 02/14/25 History mcg/actuation mist for inhalation Physical Exam Vital Signs and Narrative: Vital Signs: Last Vital Signs Temp 98.2 F 02/15/25 08:17 Pulse 113 H 02/15/25 11:17 Resp 21 H 02/15/25 11:17 BP 125/67 02/15/25 11:17 Pulse Ox 95 02/15/25 11:17 O2 Del Method Nasal Cannula 02/15/25 11:17 O2 Flow Rate 3 02/15/25 11:17 Oxygen Flow Rate 3 02/15/25 08:10 BMI result Body Mass Index 31.0 Alert and oriented X3, able to give good history. Neuro: CN II-X11 intact, no deficits, visual acuity intact EYES: PERRLA, EOM intact ENT: hearing intact, uvula midline, lips moist, nares patent Cardiac: S1 S2 irregularly irregular , no murmur, no JVD, Trace edema in Lower ext Pulmonary: lungs clear to auscultation, Increased WOB, mild-moderate respiratory distress, color WNL. Use of accessory muscles. Abdominal: BS active in all 4 quadrants, no guarding, tenderness, rebounding MSK: Strength 5/5 upper and lower extremities : no CVA tenderness no bladder distension Extremities: Trace edema in lower extremities, PT and DP pulses palpable +2 Psych: mood stable, judgment and insight good Skin: Warm and dry, Intact Results Labs 02/15/25 08:45 02/15/25 08:45 Labs: Laboratory Results - last 24 hr 02/15/25 02/15/25 08:45 09:09 MCV 95.4 MCH 32.0 MCHC 33.5 RDW 12.4 Plt Count 297 MPV 11.9 Immature Gran % (Auto) 4.0 H Neut % (Auto) 70.6 Lymph % (Auto) 10.1 L [place] % (Auto) 10.2 Eos % (Auto) 4.4 H Baso % (Auto) 0.7 Lymph # (Auto) 1.3 [place] # (Auto) 1.3 H Eos # (Auto) 0.6 H Baso # (Auto) 0.1 Abs Immat Gran (auto) 0.52 H Absolute Neuts (auto) 9.3 H Absolute Nucleated RBC 0.040 H Nucleated RBC % (auto) 0.3 H Hold Blue Top SEE NOTE VBG pH 7.44 H VBG pCO2 66 VBG pO2 32 VBG HCO3 45 H VBG O2 Saturation 39.0 VBG Base Excess 18.0 Anion Gap 19 Estim Creat Clear Calc 77.1 Estimated GFR > 60 Random Glucose 122 H Calcium 9.9 Total Bilirubin 0.7 AST 34 ALT 10 Alkaline Phosphatase 124 H Total Protein 7.1 Albumin 3.9 Imaging Radiologist's Impressions: Impressions Chest X-Ray 02/15/25 08:16 IMPRESSION: No active pulmonary disease. Electronically signed by: Marty Pelletier MD 02/15/2025 09:15 AM EDT RP Assessment and Plan (1) Atrial fibrillation with RVR: Status: Acute Plan AFib with RVR Continue on diltiazem drip per protocol Received two doses digoxin Started on Xarelto due to reported allergy with Eliquis Previously seen in [facility] ED with a new diagnosis of AFib after being sent by his primary care office at the [place], received diltiazem, was seen by Follow-up outpatient with Dr. Fernandez Most recent echo in November 70% COPD with acute exacerbation Followed by Dr. Ramos who will be consulted this hospitalization O2 dependent at home on 3 L Continue Solu-Medrol 40 mg IV b.i.d. Doxycycline 100 mg b.i.d. for 5 days Tessalon Perles Duo nebs q.4 hours while awake Resume home inhalers Daily ETOH use CIWA protocol Ativan as needed Notify Hospitalist team with any changes. Hypothyroidism Resume home levothyroxine 88 mcg daily Check TSH in a.m. Hypertension/HLD Lisinopril placed on hold by primary care Continue Cardizem Blood pressure stable 125/67 DVT prophylaxis: Xarelto Code status: DNR/DNI. Patient has MOLST form Attending Dr. Palma Quality Stroke Does the patient have a stroke diagnosis?: No VTE Prior VTE?: No VTE Risk Level:: Medical - moderate - high VTE Device Contraindication: Treatment Not Indicated VTE Drug Contraindication: N/A - Med Ordered
--- NOTE | 2025-02-15 11:52 | PC.NURSE ---
Pt presented to ED with complaints of increased SOB/Cough. Pt grunting with SOB when admitted to ED. Pt also noted to be in rapid a fib- rates 130's. Pt given updrafts, Diltiazem IVP and remains on gtt at 15mcg . Pt with improved WOB. Pt given Digoxin after initial Cardizem push and drip not effective, HR now is low 100's. Ultrasound guided IV present right AC. Pt with stable BP. Uses O2 at home at 3LPM N/C and is on same here with good effect. Pt denies pain or any other complaints. Pt reported to hospitalist that he drinks daily. Pt also reports he stopped Eliquis and Cardizem at home 4 days ago due to unexplained rash- not present on admit. Provider aware.
[2025-02-15] MEDS: Rivaroxaban 20 MG TABLET PO (12:25)
--- NOTE | 2025-02-15 12:36 | PHA.MEDREC ---
Addendum entered by Anderson Rico 02/15/25 12:42: reviewed Original Note: Pharmacy Consult ? Medication Reconciliation Pharmacy has completed the medication reconciliation. Spoke with patient and he was able to confirm his medications and also had a couple photos of Rx bottles we were able to use. [facility] I tried multiple times to fax them to get a list but have not had any luck. We will update med list when/if we get a [facility]. Patient confirmed he is not taking Eliquis or Diltiazem as of Sunday 02/11 due to developing a rash while taking them. He confirmed he stopped the Lisinopril 30mg tab about 1 month ago to start the Eliquis and Diltiazem.
[2025-02-15 13:02] LABS: Influenza A PCR NEGATIVE (Negative); Influenza B PCR NEGATIVE (Negative); Resp Syncy Virus RNA Qual PCR NEGATIVE (Negative); SARS COV2 PCR INHOUSE NEGATIVE (Negative)
--- NOTE | 2025-02-15 15:27 | PM.CNPUL ---
History of Present Illness History of Present Illness Consult date: 02/15/25 Chief complaint: copd excerbation, AF/RVR Narrative: 29-year-old gentleman with underlying history of COPD on 3 L, AFib with prior episodes of RVR, hypothyroidism, alcohol dependence admitted on 02/15/2025 with whole-body rash and AFib with RVR associated with dyspnea. Patient was treated with Cardizem digoxin for rate control with improving his symptoms. He also was started on empiric systemic glucocorticoids and doxycycline. His chest imaging demonstrated essentially clear lungs. Review of Systems Constitutional: Constitutional: Denies daytime sleepiness, Denies excessive sweating, Denies fatigue, Denies fever(s), Denies lethargy, Denies malaise, Denies night sweats, Denies snoring and Denies weight loss Eyes: Eyes: Denies blurry vision and Denies itchy eyes ENT: Denies nasal congestion, Denies post nasal drip, Denies sinus pain, Denies sinus pressure and Denies other ( Thrush) Cardiovascular: Cardiovascular: Denies chest pain, Denies pedal edema, Reports palpitations, Reports dyspnea, Denies orthopnea and Denies paroxysmal nocturnal dyspnea Respiratory: Respiratory: Denies cough, Denies hemoptysis, Denies excessive phlegm production, Reports dyspnea, Denies snoring and Denies wheezing Gastrointestinal: Gastrointestinal: Denies abdominal pain and Denies heartburn Musculoskeletal: Musculoskeletal: Denies myalgias, Denies arthralgias and Denies joint swelling Integumentary/Breasts: Skin/Breast: Denies rash Neurologic: Denies memory loss and Denies seizure-like activity Psychiatric: Psychiatric: Denies abnormal sleep pattern, Denies anxiety and Denies memory loss Endocrine: Endocrine: Denies excessive sweating, Denies fatigue, Denies heat intolerance and Reports palpitations Hematologic/Lymphatic: Hematologic/Lymphatic: Denies easy bruising Allergic/Immunologic: Allergic/Immunologic: Denies itchy eyes, Denies seasonal rhinorrhea and Denies wheezing [facility] Social History Social History (Updated 02/15/25 @ 12:22 by Skylar Miller DNP) Household Members: Family Housing: House Do you presently have visiting nurse or other home services: No Alcohol intake: current Comment: Reports 1.75 L hard liquor over a 4 day period daily Patient Tobacco Use Status: Former Tobacco user Tobacco use type: Cigarette Years Smoked: started at age 12, 2-3 PPD, quit 10/16/2024 Use of substances other than those prescribed or required for medical reasons: No Have you been hit, kicked, punched, or otherwise hurt by someone within the past year? If so, by whom?: No Do you feel safe in your current relationship?: No Current Relationship Is there a partner from a previous relationship who is making you feel unsafe now?: No Are you made to feel afraid or neglected: No Advance Directives: No Advance Directives Information Provided: Yes Do you have a plan to hurt others: No Plan Recently lost weight without trying: No How much weight loss: Not applicable Eating poorly because of decreased appetite: No Nutrition screen score: 0 Nutrition Risks: No Nutritional Risk Poor oral hygiene: No Meds Allergies Allergy/AdvReac Type Severity Reaction Status Date / Time hydrochlorothiazide AdvReac Severe Rash Verified 02/15/25 08:12 Active Medications: Current Medications Acetaminophen (Acetaminophen 325 Mg Tablet) 650 mg PO Q6H PRN PRN Reason: Pain, Mild 1-3,fever,headache Benzonatate (Benzonatate 100 Mg Capsule) 100 mg PO TID PRN PRN Reason: Cough Calcium Carbonate (Calcium Carbonate 750 Mg Tab.Chew) 750 mg PO Q4H PRN PRN Reason: Heartburn Digoxin (Digoxin 0.5 Mg/2 Ml Ampul) 0.25 mg IVPUSH ONCE ONE; Protocol Stop: 02/15/25 16:01 Diphenhydramine HCl (Diphenhydramine Hcl 25 Mg Capsule) 25 mg PO Q6H PRN PRN Reason: Itch Doxycycline Monohydrate (Doxycycline Monohydrate 100 Mg Capsule) 100 mg PO BID@0800,1500 [facility] Stop: 02/20/25 14:59 Diltiazem HCl 125 mg/ Sodium (Chloride) 125 mls @ 0 mls/hr IVCONT .Q0M [facility]; Protocol Last Titration: 02/15/25 09:24 Dose: 15 mg/hr, 15 mls/hr Lorazepam (Lorazepam 0.5 Mg Tablet) 0.5 mg PO Q4H PRN PRN Reason: Breakthrough alcohol withdrawa Stop: 02/19/25 11:17 Magnesium Hydroxide (Milk Of Magnesia 30 Ml Oral.Susp) 30 ml PO DAILY PRN PRN Reason: Constipation Melatonin (Melatonin 3 Mg Tablet) 6 mg PO BEDTIME PRN PRN Reason: Insomnia Methylprednisolone Sodium Succinate (Methylprednisolone Sod Succ 40 Mg/Ml Vial) 40 mg IVPUSH BID@0800,1500 [facility] Ondansetron HCl (Ondansetron Hcl 4 Mg/2 Ml Vial) 4 mg IVPUSH Q8H PRN PRN Reason: Nausea and Vomiting Polyethylene Glycol (Polyethylene Glycol 3350 17 Gm Powd.Pack) 17 gm PO DAILY PRN PRN Reason: Constipation Rivaroxaban (Rivaroxaban 20 Mg Tablet) 20 mg PO DAILY@1730 [facility] Last Admin: 02/15/25 12:25 Dose: 20 mg Sodium Chloride (0.9 % Sodium Chloride Flush 3 Ml Syringe) 3 ml IVFLUSH QSHIFT [facility] Home Medications ?Medication ?Instructions ?Recorded ?Confirmed ?Last Taken ?Type albuterol sulfate 2.5 mg/3 mL 2.5 mg inhalation Q6H 10/18/24 02/15/25 02/14/25 History (0.083 %) solution for nebulization albuterol sulfate 90 mcg/actuation 2 puff inhalation Q4-6H PRN 10/18/24 02/15/25 02/14/25 History aerosol inhaler Shortness Of Breath Or Wheezing atorvastatin 40 mg tablet 40 mg PO DAILY 10/18/24 02/15/25 02/14/25 History cholecalciferol (vitamin D3) 25 25 mcg PO DAILY 10/18/24 02/15/25 02/14/25 History mcg (1,000 unit) tablet fluticasone 250 mcg-salmeterol 50 1 inh inhalation BID 10/18/24 02/15/25 02/14/25 History mcg/dose blistr powdr for inhalation levothyroxine 88 mcg tablet 88 mcg PO DAILY@0600 10/18/24 02/15/25 02/14/25 History tiotropium bromide 2.5 2 puff inhalation DAILY 10/18/24 02/15/25 02/14/25 History mcg/actuation mist for inhalation Physical Exam Vital Signs: Vital Signs: Last Vital Signs Temp 98.2 F 02/15/25 08:17 Pulse 108 H 02/15/25 13:06 Resp 21 H 02/15/25 13:06 BP 144/83 H 02/15/25 13:06 Pulse Ox 95 02/15/25 13:06 O2 Del Method Nasal Cannula, Ve nturi Mask 02/15/25 13:06 O2 Flow Rate 3 02/15/25 13:06 Oxygen Flow Rate 3 02/15/25 08:10 BMI result Body Mass Index 31.0 Const: General: no acute distress and alert Nutritional Appearance: not obese Orientation/consciousness: Other orientation findings ( oriented) HEENT: Head: Yes atraumatic Eyes: General: appearance normal, both eyes and all related structures Sclerae: sclerae normal EOM: EOMs intact bilaterally Neck: Neck: Yes supple Lymphatic: no lymphadenopathy noted Resp: Effort & Inspection: normal respiratory effort and no use of accessory muscles Auscultation: clear to auscultation bilaterally Cardio: Rate: tachycardic Rhythm: abnormal rhythm irregularly irregular Heart sounds: no gallops, no murmurs and no rubs GI: Palpation (GI): Soft to palpation and Other GI palpation findings present ( Nontender) Auscultation: normal bowel sounds Skin: General skin exam: other ( warm) Extrem: General: No clubbing, No cyanosis and Yes edema (Trace bilateral) Results Laboratory Findings 02/15/25 08:45 02/15/25 08:45 Abnormal lab findings: Abnormal Labs 02/15/25 02/15/25 08:45 09:09 WBC 13.1 H RBC 3.66 L Hgb 11.7 L Hct 34.9 L Immature Gran % (Auto) 4.0 H Lymph % (Auto) 10.1 L Eos % (Auto) 4.4 H [place] # (Auto) 1.3 H Eos # (Auto) 0.6 H Abs Immat Gran (auto) 0.52 H Absolute Neuts (auto) 9.3 H Absolute Nucleated RBC 0.040 H Nucleated RBC % (auto) 0.3 H VBG pH 7.44 H VBG HCO3 45 H Chloride 90 L Carbon Dioxide 33 H BUN 18 H Random Glucose 122 H Alkaline Phosphatase 124 H Assessment and Plan (1) Atrial fibrillation with RVR: Status: Acute (2) COPD (chronic obstructive pulmonary disease): Status: Acute (3) Dyspnea on exertion: Status: Acute Plan Impression: 69-year-old gentleman admitted with dyspnea that appears to be related to his AFib with RVR on the background of known COPD with supplemental oxygen dependency. At this time patient does not seem to have an acute exacerbation of his underlying COPD. Recommendation: Agree with rate control of underlying AFib. Consider discontinuation of systemic glucocorticoids. Procedures Date of Service Date of Service: 02/15/25
[2025-02-15] MEDS: Doxycycline Monohydrate 100 MG CAPSULE PO (15:54)
[2025-02-15] MEDS: methylPREDNISolone Sod Succ 40 MG/ML VIAL IVPUSH (15:54)
[2025-02-15] MEDS: 0.9 % Sodium Chloride Flush 3 ML SYRINGE IVFLUSH ×2 (15:54→19:48)
--- NOTE | 2025-02-15 16:57 | ECG_ITS ---
Test Reason : dysrhythmia Blood Pressure : */* mmHG Vent. Rate : 96 BPM Atrial Rate : * BPM P-R Int : * ms QRS Dur : 70 ms QT Int : 360 ms P-R-T Axes : * 50 52 degrees QTcB Int : 454 ms Atrial fibrillation Abnormal ECG No previous ECGs available Referred By: Shyam Palma Electronically Signed By: JULIETTE SAENZ MD
[2025-02-15] MEDS: dilTIAZem HCL 125 MG in 0.9 % Sodium Chloride 100 ML IVCONT (19:48)
[2025-02-16] VITALS (9 sets, daily range): BP systolic 138–153; BP diastolic 72–86; PULSE 82–110; RESP 14–20; TEMP 36.3–36.7; O2SAT 95–99
--- NOTE | 2025-02-16 00:28 | ECG_ITS ---
Test Reason : Rhythm check Blood Pressure : */* mmHG Vent. Rate : 88 BPM Atrial Rate : 88 BPM P-R Int : 132 ms QRS Dur : 74 ms QT Int : 372 ms P-R-T Axes : 65 52 46 degrees QTcB Int : 450 ms Sinus rhythm with Premature atrial complexes Otherwise normal ECG When compared with ECG of 15-Feb-2025 16:59, Sinus rhythm has replaced Atrial fibrillation Referred By: Deidra Beckman Electronically Signed By: JULIETTE SAENZ MD
--- NOTE | 2025-02-16 00:53 | PC.NURSE ---
EKG obtained showing SR with PACs, HR maintaining <90bpm. Diltiazem gtt paused at this time per Dr. Beckman.
[2025-02-16 07:17] LABS: Blood Urea Nitrogen 24 mg/dL (9-16); Calcium 10.2 mg/dL (8.4-10.2); Creatinine Clr Calc Pharmacy 66.7; Estimated Glomerular Filt Rate > 60; Glucose Random 141 mg/dL (60-115); Magnesium 1.6 mg/dL (1.6-2.6)
[2025-02-16 07:45] LABS: Thyroid Stimulating Hormone 0.28 uIU/mL (0.32-4.0)
[2025-02-16] MEDS: Doxycycline Monohydrate 100 MG CAPSULE PO ×2 (07:48→15:12)
[2025-02-16] MEDS: 0.9 % Sodium Chloride Flush 3 ML SYRINGE IVFLUSH ×2 (07:49→15:13)
[2025-02-16] MEDS: methylPREDNISolone Sod Succ 40 MG/ML VIAL IVPUSH (07:49)
--- NOTE | 2025-02-16 09:10 | MHC.CM.PN ---
Pt. lives with his sister, he will complete HCP form here, naming her. Artie Lentz is his PCP, [facility], he does not have any home care services. For DME, he has home O2. He can arrange a ride home at [place]. DCP: home, self care. CM to follow for DC needs.
[2025-02-16 09:21] LABS: Anion Gap 21 (12-20); Carbon Dioxide 34 mmol/L (22-29); Chloride 92 mmol/L (96-108); Potassium 4.5 mmol/L (3.3-5.1); Sodium 142 mmol/L (135-145)
[2025-02-16 09:57] LABS: Free T4 (Free Thyroxine) 1.01 ng/dL (0.71-1.85)
--- NOTE | 2025-02-16 11:24 | HO.ADDICTCON ---
History of Present Illness Date of Service: 02/16/2025 Chief Complaint: copd excerbation, AF/RVR Reason for Consult: +AUDIT C/daily alcohol use Sources of Information: patient interviewed and chart reviewed HPI Narrative: Patient is a 69 year old male with COPD, AFIB with RVR. Medically admitted with COPD exacerbation Consult requested as patient reported daily alcohol use during admission. Patient seen in room 479. He is awake, alert, engaged in interview. He states that he has been been drinking every night, after work for over 30 years Currently drinking about a pint of whiskey every evening Denies any history of withdrawals, denies any history of treatment Attempted to discuss how current alcohol intake may be impacting current medical issues and overall health Patient politely declined to discuss this, stating he is not interested in changing his drinking habits. At time of interview patient did not appear to be experiencing any withdrawal sx and denied any diaphoresis, anxiety, GI sx. CIWA scores have been 0 Medical Evaluation Reviewed: Yes Review of Systems Constitutional: Reports as per HPI Diagnostics Vital Signs (24Hr): Vital Signs - 24 hr 02/15/25 13:06 02/15/25 15:53 02/15/25 19:33 Temperature 96.0 F L 97.0 F Pulse Rate 108 H 101 H 95 Respiratory Rate 21 H 20 18 Blood Pressure 144/83 H 158/75 H 137/75 Pulse Oximetry 95 95 95 Oxygen Delivery Method Nasal Cannula Venturi Mask Nasal Cannula Nasal Cannula Oxygen Flow Rate 3 3 3 02/16/25 00:00 02/16/25 03:46 02/16/25 07:24 Temperature 97.3 F 98.1 F 97.5 F Pulse Rate 86 92 90 Respiratory Rate 20 17 20 Blood Pressure 140/78 H 143/86 H 140/79 H Pulse Oximetry 96 97 99 Oxygen Delivery Method Nasal Cannula Nasal Cannula Nasal Cannula Oxygen Flow Rate 3 3 3 02/16/25 10:58 Temperature 98.1 F Pulse Rate 99 Respiratory Rate 20 Blood Pressure 143/84 H Pulse Oximetry 96 Oxygen Delivery Method Nasal Cannula Oxygen Flow Rate 3 BMI result Body Mass Index 28.4 Labs 02/15/25 08:45 02/16/25 06:13 Labs: Laboratory Results - last 48 hr 02/15/25 02/15/25 02/15/25 08:45 09:09 12:08 WBC 13.1 H RBC 3.66 L Hgb 11.7 L Hct 34.9 L MCV 95.4 MCH 32.0 MCHC 33.5 RDW 12.4 Plt Count 297 MPV 11.9 Immature Gran % (Auto) 4.0 H Neut % (Auto) 70.6 Lymph % (Auto) 10.1 L [place] % (Auto) 10.2 Eos % (Auto) 4.4 H Baso % (Auto) 0.7 Lymph # (Auto) 1.3 [place] # (Auto) 1.3 H Eos # (Auto) 0.6 H Baso # (Auto) 0.1 Abs Immat Gran (auto) 0.52 H Absolute Neuts (auto) 9.3 H Absolute Nucleated RBC 0.040 H Nucleated RBC % (auto) 0.3 H Hold Purple Top Hold Blue Top SEE NOTE VBG pH 7.44 H VBG pCO2 66 VBG pO2 32 VBG HCO3 45 H VBG O2 Saturation 39.0 VBG Base Excess 18.0 Sodium 139 Potassium 3.4 Chloride 90 L Carbon Dioxide 33 H Anion Gap 19 BUN 18 H Creatinine 1.00 Estim Creat Clear Calc 77.1 Estimated GFR > 60 Random Glucose 122 H Calcium 9.9 Magnesium Total Bilirubin 0.7 AST 34 ALT 10 Alkaline Phosphatase 124 H Troponin I High Sens 9.3 Total Protein 7.1 Albumin 3.9 TSH Free T4 Influenza Type A (PCR) NEGATIVE Influenza Type B (PCR) NEGATIVE RSV RNA Qual (PCR) NEGATIVE SARS-CoV-2 RNA (RT-PCR) NEGATIVE 02/16/25 06:13 WBC RBC Hgb Hct MCV MCH MCHC RDW Plt Count MPV Immature Gran % (Auto) Neut % (Auto) Lymph % (Auto) [place] % (Auto) Eos % (Auto) Baso % (Auto) Lymph # (Auto) [place] # (Auto) Eos # (Auto) Baso # (Auto) Abs Immat Gran (auto) Absolute Neuts (auto) Absolute Nucleated RBC Nucleated RBC % (auto) Hold Purple Top SEE NOTE Hold Blue Top VBG pH VBG pCO2 VBG pO2 VBG HCO3 VBG O2 Saturation VBG Base Excess Sodium 142 Potassium 4.5 D Chloride 92 L Carbon Dioxide 34 H Anion Gap 21 H BUN 24 H Creatinine 1.11 Estim Creat Clear Calc 66.7 Estimated GFR > 60 Random Glucose 141 H Calcium 10.2 Magnesium 1.6 Total Bilirubin AST ALT Alkaline Phosphatase Troponin I High Sens Total Protein Albumin TSH 0.28 L Free T4 1.01 Influenza Type A (PCR) Influenza Type B (PCR) RSV RNA Qual (PCR) SARS-CoV-2 RNA (RT-PCR) Imaging Radiology Impressions: ITS Impressions Chest X-Ray 02/15/25 08:16 IMPRESSION: No active pulmonary disease. Electronically signed by: Marty Pelletier MD 02/15/2025 09:15 AM EDT RP Mental Status Exam Mental Status Exam Patient Appearance: Appropriate Patient Orientation: Person, Place, Time and Situation Level of Consciousness: Awake, Appropriate and Alert Patient Behavior: Appropriate Mood Description: Calm Affect Description: Calm Speech Pattern: Clear Hallucinations: None Thought Process: Intact Thought Content: positive for Intact Judgement: Fair Medications Medications Current Medications Acetaminophen (Acetaminophen 325 Mg Tablet) 650 mg PO Q6H PRN PRN Reason: Pain, Mild 1-3,fever,headache Benzonatate (Benzonatate 100 Mg Capsule) 100 mg PO TID PRN PRN Reason: Cough Calcium Carbonate (Calcium Carbonate 750 Mg Tab.Chew) 750 mg PO Q4H PRN PRN Reason: Heartburn Diphenhydramine HCl (Diphenhydramine Hcl 25 Mg Capsule) 25 mg PO Q6H PRN PRN Reason: Itch Doxycycline Monohydrate (Doxycycline Monohydrate 100 Mg Capsule) 100 mg PO BID@0800,1500 MARYA Stop: 02/20/25 14:59 Last Admin: 02/16/25 07:48 Dose: 100 mg Diltiazem HCl 125 mg/ Sodium (Chloride) 125 mls @ 0 mls/hr IVCONT .Q0M MARYA; Protocol Last Titration: 02/16/25 00:53 Dose: 0 mg/hr, 0 mls/hr Lorazepam (Lorazepam 0.5 Mg Tablet) 0.5 mg PO Q4H PRN PRN Reason: Breakthrough alcohol withdrawa Stop: 02/19/25 11:17 Magnesium Hydroxide (Milk Of Magnesia 30 Ml Oral.Susp) 30 ml PO DAILY PRN PRN Reason: Constipation Melatonin (Melatonin 3 Mg Tablet) 6 mg PO BEDTIME PRN PRN Reason: Insomnia Ondansetron HCl (Ondansetron Hcl 4 Mg/2 Ml Vial) 4 mg IVPUSH Q8H PRN PRN Reason: Nausea and Vomiting Polyethylene Glycol (Polyethylene Glycol 3350 17 Gm Powd.Pack) 17 gm PO DAILY PRN PRN Reason: Constipation Prednisone (Prednisone 20 Mg Tablet) 40 mg PO DAILY [facility] Rivaroxaban (Rivaroxaban 20 Mg Tablet) 20 mg PO DAILY@1730 [facility] Last Admin: 02/15/25 12:25 Dose: 20 mg Sodium Chloride (0.9 % Sodium Chloride Flush 3 Ml Syringe) 3 ml IVFLUSH QSHIFT [facility] Last Admin: 02/16/25 07:49 Dose: 3 ml Allergies Allergies Allergy/AdvReac Type Severity Reaction Status Date / Time hydrochlorothiazide AdvReac Severe Rash Verified 02/15/25 08:12 Assessment & Plan Assessment & Plan (1) Alcohol use: Status: Acute Code(s): F10.90 - Alcohol use, unspecified, uncomplicated Assessment and Plan: no withdrawal patient declined BI for +AUDIT C screen- declines further intervention, including information or referrals for alcohol use Total time managing care of this patient today __25__ minutes. [facility] Social History Social History (Updated 02/15/25 @ 12:22 by Skylar Miller DNP) Household Members: Family Housing: House Do you presently have visiting nurse or other home services: No Alcohol intake: current Comment: Reports 1.75 L hard liquor over a 4 day period daily Patient Tobacco Use Status: Former Tobacco user Tobacco use type: Cigarette Years Smoked: started at age 12, 2-3 PPD, quit 10/16/2024 Use of substances other than those prescribed or required for medical reasons: No Currently Displaying Signs/Symptoms of Drug Intoxication Withdrawal: No Have you been hit, kicked, punched, or otherwise hurt by someone within the past year? If so, by whom?: No Do you feel safe in your current relationship?: No Current Relationship Is there a partner from a previous relationship who is making you feel unsafe now?: No Are you made to feel afraid or neglected: No Advance Directives: No Advance Directives Information Provided: Yes Do you have a plan to hurt others: No Plan Recently lost weight without trying: No How much weight loss: Not applicable Eating poorly because of decreased appetite: No Nutrition screen score: 0 Nutrition Risks: No Nutritional Risk Poor oral hygiene: No service: Yes
--- NOTE | 2025-02-16 15:37 | PM.CNCAR ---
History of Present Illness History of Present Illness Date of Service: 02/16/25 Requesting physician: Shyam Palma Consult reason: atrial fibrillation Chief complaint: copd excerbation, AF/RVR Narrative: I was consulted to see Rosita in cardiology consultation today for atrial fibrillation with rapid ventricular response. He is a 69-year-old male with advanced COPD with chronic respiratory failure on home oxygen. Patient said he significantly short of breath and uses nebulizers twice a day. He also has history of hypertension and at home on lisinopril therapy which was recently withheld after diagnose is for atrial fibrillation being started on Cardizem drip. Patient came to the hospital after he developed generalized rash which she thinks is related to Eliquis therapy. He was also started on diltiazem therapy 3 weeks ago after he was noted to be in new onset atrial fibrillation was referred to the emergency room. In the emergency room he then had converted to sinus rhythm and was subsequently requesting to be sent home and was sent home on diltiazem and Eliquis. He subsequently 20 days later developed a rash and call his primary care physician's office and was advised to come to the emergency room. He has also noticed to have increased shortness of breath. He has been admitted for COPD exacerbation on admission was noted to have atrial fibrillation rapid ventricular response. He is given IV Cardizem and subsequently converted to sinus rhythm with frequent PACs. He has significant lead increased workup breathing but he says this is his baseline. He has been treated for COPD exacerbation. His Eliquis was switch to Xarelto therapy for potential allergic reaction. Review of Systems Constitutional: Constitutional: Reports no additional constitutional complaints Cardiovascular: Cardiovascular: Denies chest pain, Reports rapid heart rate, Denies leg edema, Denies lightheadedness, Denies Loss of Consciousness and Reports dyspnea on exertion Respiratory: Respiratory: Reports dyspnea on exertion and Reports wheezing Gastrointestinal: Gastrointestinal: Reports no additional gastrointestinal complaints Genitourinary: Genitourinary: Reports no additional male genitourinary complaints Musculoskeletal: Musculoskeletal: Reports no additional musculoskeletal complaints Integumentary/Breasts: Skin/Breast: Reports rash Neurologic: Reports system reviewed and no additional complaints, except as documented Allergic/Immunologic: Allergic/Immunologic: Reports wheezing PMFSH Social History Social History Household Members: Family Housing: House Do you presently have visiting nurse or other home services: No Alcohol intake: current Comment: Reports 1.75 L hard liquor over a 4 day period daily Patient Tobacco Use Status: Former Tobacco user Tobacco use type: Cigarette Years Smoked: started at age 12, 2-3 PPD, quit 10/16/2024 Use of substances other than those prescribed or required for medical reasons: No Currently Displaying Signs/Symptoms of Drug Intoxication Withdrawal: No Have you been hit, kicked, punched, or otherwise hurt by someone within the past year? If so, by whom?: No Do you feel safe in your current relationship?: No Current Relationship Is there a partner from a previous relationship who is making you feel unsafe now?: No Are you made to feel afraid or neglected: No Advance Directives: No Advance Directives Information Provided: Yes Do you have a plan to hurt others: No Plan Recently lost weight without trying: No How much weight loss: Not applicable Eating poorly because of decreased appetite: No Nutrition screen score: 0 Nutrition Risks: No Nutritional Risk Poor oral hygiene: No service: Yes Meds Allergies Allergy/AdvReac Type Severity Reaction Status Date / Time hydrochlorothiazide AdvReac Severe Rash Verified 02/15/25 08:12 Active Medications: Current Medications Acetaminophen (Acetaminophen 325 Mg Tablet) 650 mg PO Q6H PRN PRN Reason: Pain, Mild 1-3,fever,headache Benzonatate (Benzonatate 100 Mg Capsule) 100 mg PO TID PRN PRN Reason: Cough Calcium Carbonate (Calcium Carbonate 750 Mg Tab.Chew) 750 mg PO Q4H PRN PRN Reason: Heartburn Diphenhydramine HCl (Diphenhydramine Hcl 25 Mg Capsule) 25 mg PO Q6H PRN PRN Reason: Itch Doxycycline Monohydrate (Doxycycline Monohydrate 100 Mg Capsule) 100 mg PO BID@0800,1500 MARYA Stop: 02/20/25 14:59 Last Admin: 02/16/25 15:12 Dose: 100 mg Diltiazem HCl 125 mg/ Sodium (Chloride) 125 mls @ 0 mls/hr IVCONT .Q0M MARYA; Protocol Last Titration: 02/16/25 00:53 Dose: 0 mg/hr, 0 mls/hr Lorazepam (Lorazepam 0.5 Mg Tablet) 0.5 mg PO Q4H PRN PRN Reason: Breakthrough alcohol withdrawa Stop: 02/19/25 11:17 Magnesium Hydroxide (Milk Of Magnesia 30 Ml Oral.Susp) 30 ml PO DAILY PRN PRN Reason: Constipation Melatonin (Melatonin 3 Mg Tablet) 6 mg PO BEDTIME PRN PRN Reason: Insomnia Ondansetron HCl (Ondansetron Hcl 4 Mg/2 Ml Vial) 4 mg IVPUSH Q8H PRN PRN Reason: Nausea and Vomiting Polyethylene Glycol (Polyethylene Glycol 3350 17 Gm Powd.Pack) 17 gm PO DAILY PRN PRN Reason: Constipation Prednisone (Prednisone 20 Mg Tablet) 40 mg PO DAILY [facility] Rivaroxaban (Rivaroxaban 20 Mg Tablet) 20 mg PO DAILY@1730 [facility] Last Admin: 02/15/25 12:25 Dose: 20 mg Sodium Chloride (0.9 % Sodium Chloride Flush 3 Ml Syringe) 3 ml IVFLUSH QSHIFT [facility] Last Admin: 02/16/25 15:13 Dose: 3 ml Home Medications ?Medication ?Instructions ?Recorded ?Confirmed ?Last Taken ?Type albuterol sulfate 2.5 mg/3 mL 2.5 mg inhalation Q6H 10/18/24 02/15/25 02/14/25 History (0.083 %) solution for nebulization albuterol sulfate 90 mcg/actuation 2 puff inhalation Q4-6H PRN 10/18/24 02/15/25 02/14/25 History aerosol inhaler Shortness Of Breath Or Wheezing atorvastatin 40 mg tablet 40 mg PO DAILY 10/18/24 02/15/25 02/14/25 History cholecalciferol (vitamin D3) 25 25 mcg PO DAILY 10/18/24 02/15/25 02/14/25 History mcg (1,000 unit) tablet fluticasone 250 mcg-salmeterol 50 1 inh inhalation BID 10/18/24 02/15/25 02/14/25 History mcg/dose blistr powdr for inhalation levothyroxine 88 mcg tablet 88 mcg PO DAILY@0600 10/18/24 02/15/25 02/14/25 History tiotropium bromide 2.5 2 puff inhalation DAILY 10/18/24 02/15/25 02/14/25 History mcg/actuation mist for inhalation Physical Exam Vital Signs: Vital Signs: Last Vital Signs Temp 98.1 F 02/16/25 10:58 Pulse 99 02/16/25 10:58 Resp 20 02/16/25 10:58 BP 143/84 H 02/16/25 10:58 Pulse Ox 96 02/16/25 10:58 O2 Del Method Nasal Cannula 02/16/25 10:58 O2 Flow Rate 3 02/16/25 10:58 Oxygen Flow Rate 3 02/15/25 08:10 BMI result Body Mass Index 28.4 Const: General: cooperative and in distress moderate and respiratory Nutritional Appearance: average body habitus Orientation/consciousness: patient oriented x3 HEENT: Head: Yes normocephalic and Yes atraumatic Neck: Neck: Yes trachea midline, Yes supple and Yes no JVD Resp: Effort & Inspection: respiratory distress, tachypneic and tripod positioning Auscultation: wheezes and diminished lung sounds Cardio: Jugular venous distension: no JVD Rate: tachycardic Rhythm: abnormal rhythm with ectopic beats Heart sounds: S1 normal heart sound present, S2 normal heart sound present, no click, no gallops and no murmurs GI: Auscultation: normal bowel sounds Skin: General skin exam: no rashes or lesions noted and ecchymosis Neuro: General: patient oriented x3 and no focal motor deficits Extrem: General: Yes no clubbing, cyanosis or edema Objective Labs and Meds 02/15/25 08:45 02/16/25 06:13 Lab results: Laboratory Results - last 24 hr 02/16/25 06:13 Hold Purple Top SEE NOTE Sodium 142 Potassium 4.5 D Chloride 92 L Carbon Dioxide 34 H Anion Gap 21 H BUN 24 H Creatinine 1.11 Estim Creat Clear Calc 66.7 Estimated GFR > 60 Random Glucose 141 H Calcium 10.2 Magnesium 1.6 TSH 0.28 L Free T4 1.01 Assessment and Plan (1) Atrial fibrillation with RVR: Status: Acute Atrial fibrillation rapid ventricular response most likely due to COPD exacerbation. Not uncommon in patient with severe advanced COPD to have atrial fibrillation arrhythmia. He is having frequent PACs at this point time. As his arrhythmias have set up will continue to treat him with Cardizem to control his rate and as well as try to avoid having recurrent atrial fibrillation. Agree with oral anticoagulation with Xarelto although he is at high risk of bleeding due to his chronic alcohol use. Discussed with him to try to taper and discontinue alcohol use which is less likely for him. Continue aggressive management of COPD and would consider switching his inhaler therapy to Xopenex. Continue aggressive management of COPD as well as oxygen supplementation therapy to avoid any further cardiac excitability. He seems to be in significant distress and being closely monitored by hospitalist team. At this point time will sign of the case. Please consult us if he has recurrent atrial fibrillation. Procedures Date of Service Date of Service: 02/16/25
--- NOTE | 2025-02-16 15:45 | P.PNIM_ITS ---
Subjective Subjective Date of Service: 02/16/25 Interval History: converted to NSR with frequent PACs still feels short of breath Review of Systems Review of Systems: Yes all other systems are reviewed and are negative Physical Exam 2 Vital Signs: Vital Signs: Last Vital Signs Temp 98.1 F 02/16/25 10:58 Pulse 99 02/16/25 10:58 Resp 20 02/16/25 10:58 BP 143/84 H 02/16/25 10:58 Pulse Ox 96 02/16/25 10:58 O2 Del Method Nasal Cannula 02/16/25 10:58 O2 Flow Rate 3 02/16/25 10:58 Oxygen Flow Rate 3 02/15/25 08:10 BMI result Body Mass Index 28.4 Gen: in no acute distress HEENT: sclera anicteric, moist mucus membranes Neck: supple Lungs: diminished Heart: regular rate and rhythm, no murmurs Abd: soft, non-tender, non-distended Ext: no edema Skin: warm/well-perfused Neuro: alert and oriented x3, no focal findings Psych: appropriate affect Objective Data Active Medications Acetaminophen (Acetaminophen 325 Mg Tablet) 650 mg PO Q6H PRN PRN Reason: Pain, Mild 1-3,fever,headache Benzonatate (Benzonatate 100 Mg Capsule) 100 mg PO TID PRN PRN Reason: Cough Calcium Carbonate (Calcium Carbonate 750 Mg Tab.Chew) 750 mg PO Q4H PRN PRN Reason: Heartburn Diphenhydramine HCl (Diphenhydramine Hcl 25 Mg Capsule) 25 mg PO Q6H PRN PRN Reason: Itch Doxycycline Monohydrate (Doxycycline Monohydrate 100 Mg Capsule) 100 mg PO BID@0800,1500 [facility] Stop: 02/20/25 14:59 Last Admin: 02/16/25 15:12 Dose: 100 mg Documented By: AASHISH Diltiazem HCl 125 mg/ Sodium (Chloride) 125 mls @ 0 mls/hr IVCONT .Q0M [facility]; Protocol Last Titration: 02/16/25 00:53 Dose: 0 mg/hr, 0 mls/hr Documented By: DONI Levalbuterol HCl (Levalbuterol Hcl 1.25 Mg/3 Ml Vial.Neb) 1.25 mg INHALE Q4H PRN PRN Reason: shortness of breath/wheeze Lorazepam (Lorazepam 0.5 Mg Tablet) 0.5 mg PO Q4H PRN PRN Reason: Breakthrough alcohol withdrawa Stop: 02/19/25 11:17 Magnesium Hydroxide (Milk Of Magnesia 30 Ml Oral.Susp) 30 ml PO DAILY PRN PRN Reason: Constipation Melatonin (Melatonin 3 Mg Tablet) 6 mg PO BEDTIME PRN PRN Reason: Insomnia Ondansetron HCl (Ondansetron Hcl 4 Mg/2 Ml Vial) 4 mg IVPUSH Q8H PRN PRN Reason: Nausea and Vomiting Polyethylene Glycol (Polyethylene Glycol 3350 17 Gm Powd.Pack) 17 gm PO DAILY PRN PRN Reason: Constipation Prednisone (Prednisone 20 Mg Tablet) 40 mg PO DAILY [facility] Rivaroxaban (Rivaroxaban 20 Mg Tablet) 20 mg PO DAILY@1730 [facility] Last Admin: 02/15/25 12:25 Dose: 20 mg Documented By: SOREN Sodium Chloride (0.9 % Sodium Chloride Flush 3 Ml Syringe) 3 ml IVFLUSH QSHIFT [facility] Last Admin: 02/16/25 15:13 Dose: 3 ml Documented By: AASHISH Labs 02/15/25 08:45 02/16/25 06:13 Labs: Laboratory Results - last 24 hr 02/16/25 06:13 Hold Purple Top SEE NOTE Anion Gap 21 H Estim Creat Clear Calc 66.7 Estimated GFR > 60 Random Glucose 141 H Calcium 10.2 Magnesium 1.6 TSH 0.28 L Free T4 1.01 Assessment and Plan (1) Atrial fibrillation with RVR: Status: Acute Plan d2 for 69yo M with COPD with recently diagnosed AF, admitted for AF/RVR and COPD exacerbation AF/RVR - off diltiazem drip, change to PO diltiazem - possible allergic rash to apixaban; changed to rivaroxaban with good tolerance - Cardiology consulted, follow-up as outpt with Dr Fernandez COPD exacerbation - change methylprednisolone to prednisone, change nebs to levalbuterol, continue doxycycline 02/15-, continue ICS-LABA + LAMA + theophylline acute hypoxic respiratory failure - supplemental O2, wean as tolerated excess EtOH intake - prn CIWA, counseling to cut down hypothyroidism - decrease LT4 from 88 mcg to 75 mcg daily given over-suppressed TSH; repeat TSH in 4-6 wk HTN - lisinopril held by primary care doctor, continue diltiazem VTE ppx - riavroxaban dispo - TBD In my clinical judgment, the patient requires continued inpatient hospitalization for the following reasons: hypoxia, COPD Total time managing care of this patient today: 45 minutes. Quality Stroke Does the patient have a stroke diagnosis?: No VTE Prior VTE?: No VTE Risk Level:: Medical - moderate - high VTE Device Contraindication: Treatment Not Indicated VTE Drug Contraindication: N/A - Med Ordered
[2025-02-16] MEDS: dilTIAZem HCL CD 240 MG CAP.ER.DEG PO (16:09)
[2025-02-16] MEDS: Rivaroxaban 20 MG TABLET PO (17:14)
[2025-02-16] MEDS: Benzonatate 100 MG CAPSULE PO (17:16)
[2025-02-16] MEDS: levalbuterol HCL 1.25 MG/3 ML VIAL.NEB INHALE (21:45)
[2025-02-17] VITALS (9 sets, daily range): BP systolic 118–157; BP diastolic 69–84; PULSE 75–158; RESP 18–20; TEMP 36.1–36.6; O2SAT 90–98
[2025-02-17] MEDS: 0.9 % Sodium Chloride Flush 3 ML SYRINGE IVFLUSH ×4 (00:16→23:45)
[2025-02-17] MEDS: Levothyroxine Sodium 75 MCG TABLET PO (05:16)
[2025-02-17] MEDS: Fluticasone/Vilanterol 100/25 BLST.W.DEV 1 PUFF INHALE (07:39)
[2025-02-17] MEDS: Tiotropium Bromide 2.5 mcg 1 PUFF/2.5 MCG MIST.INHAL 2 PUFF INHALE (07:39)
[2025-02-17] MEDS: Benzonatate 100 MG CAPSULE PO ×2 (08:23→16:05)
[2025-02-17] MEDS: predniSONE 20 MG TABLET 40 MG PO (08:23)
[2025-02-17] MEDS: dilTIAZem HCL CD 240 MG CAP.ER.DEG PO (08:24)
[2025-02-17] MEDS: Furosemide 40 MG TABLET PO (08:24)
[2025-02-17] MEDS: Doxycycline Monohydrate 100 MG CAPSULE PO ×2 (08:25→16:05)
[2025-02-17] MEDS: Atorvastatin Calcium 40 MG TABLET PO (08:25)
[2025-02-17] MEDS: Theophylline Anhydrous ER 400 MG TAB.ER.24H PO (08:25)
[2025-02-17] MEDS: Cholecalciferol (Vitamin D3) 25 MCG TABLET PO (08:25)
[2025-02-17 09:02] LABS: VBG Base Excess 18.7 mmol/L; VBG HCO3 47 mmol/L (22-26); VBG pCO2 72 mmHg; VBG pH 7.41 (7.32-7.43); VBG pO2 36 mmHg
[2025-02-17 09:03] LABS: Venous Blood Gas Refer to POC result
[2025-02-17 09:17] LABS: Hematocrit 35.7 % (42.0-52.0); Hemoglobin 11.9 g/dl (14.0-18.0); Mean Corpuscular HGB Conc 33.3 g/dl (31.0-36.0); Mean Corpuscular Hemoglobin 32.2 pg (27.0-33.0); Mean Corpuscular Volume 96.7 fL (80.0-98.0); Mean Platelet Volume 11.7 fL (9.4-12.4); NRBC Pct Auto 0.3 /100WBC (0.0-0.2); Platelet Count 314 X10*3/uL (160-400); Red Blood Count 3.69 X10*6/uL (4.60-5.80); Red Cell Distribution Width 12.7 % (11.0-16.0); White Blood Count 19.4 X10*3/uL (4.8-10.8)
[2025-02-17 09:30] LABS: Anion Gap 14 (12-20); Blood Urea Nitrogen 33 mg/dL (9-16); Calcium 10.2 mg/dL (8.4-10.2); Carbon Dioxide 38 mmol/L (22-29); Chloride 93 mmol/L (96-108); Creatinine Clr Calc Pharmacy 71.9; Estimated Glomerular Filt Rate > 60; Glucose Random 115 mg/dL (60-115); Magnesium 1.7 mg/dL (1.6-2.6); Potassium 4.2 mmol/L (3.3-5.1); Sodium 141 mmol/L (135-145)
--- NOTE | 2025-02-17 12:25 | HO.PM.IMPN ---
Subjective Subjective Date of Service: 02/17/25 Interval History: had some palpitations this AM, HR in 130s-140s but appeared to be sinus tach with PACs dyspnea slightly improved Review of Systems Review of Systems: Yes all other systems are reviewed and are negative Physical Exam Vital Signs: Vital Signs: Last Vital Signs Temp 97.2 F 02/17/25 11:05 Pulse 100 02/17/25 11:05 Resp 20 02/17/25 11:05 BP 118/71 02/17/25 11:05 Pulse Ox 92 02/17/25 11:05 O2 Del Method Nasal Cannula 02/17/25 11:05 O2 Flow Rate 3 02/17/25 11:05 Oxygen Flow Rate 3 02/15/25 08:10 BMI result Body Mass Index 28.4 Gen: in no acute distress HEENT: sclera anicteric, moist mucus membranes Neck: supple Lungs: diminished Heart: irregular, no murmurs Abd: soft, non-tender, non-distended Ext: no edema Skin: warm/well-perfused Neuro: alert and oriented x3, no focal findings Psych: appropriate affect Objective Data Active Medications Acetaminophen (Acetaminophen 325 Mg Tablet) 650 mg PO Q6H PRN PRN Reason: Pain, Mild 1-3,fever,headache Atorvastatin Calcium (Atorvastatin Calcium 40 Mg Tablet) 40 mg PO DAILY [facility] Last Admin: 02/17/25 08:25 Dose: 40 mg Documented By: TIEN Benzonatate (Benzonatate 100 Mg Capsule) 100 mg PO TID PRN PRN Reason: Cough Last Admin: 02/17/25 08:23 Dose: 100 mg Documented By: TIEN Calcium Carbonate (Calcium Carbonate 750 Mg Tab.Chew) 750 mg PO Q4H PRN PRN Reason: Heartburn Diltiazem HCl (Diltiazem Hcl Cd 240 Mg Cap.Er.Deg) 240 mg PO DAILY [facility]; Protocol Last Admin: 02/17/25 08:24 Dose: 240 mg Documented By: TIEN Diphenhydramine HCl (Diphenhydramine Hcl 25 Mg Capsule) 25 mg PO Q6H PRN PRN Reason: Itch Doxycycline Monohydrate (Doxycycline Monohydrate 100 Mg Capsule) 100 mg PO BID@0800,1500 [facility] Stop: 02/20/25 14:59 Last Admin: 02/17/25 08:25 Dose: 100 mg Documented By: TIEN Fluticasone/Vilanterol (Fluticasone/Vilanterol 100/25 Blst.W.Dev) 1 puff INHALE RDAILY [facility] Last Admin: 02/17/25 07:39 Dose: 1 puff Documented By: RADHA Furosemide (Furosemide 40 Mg Tablet) 40 mg PO DAILY [facility]; Protocol Last Admin: 02/17/25 08:24 Dose: 40 mg Documented By: TIEN Levalbuterol HCl (Levalbuterol Hcl 1.25 Mg/3 Ml Vial.Neb) 1.25 mg INHALE Q4H PRN PRN Reason: shortness of breath/wheeze Last Admin: 02/16/25 21:45 Dose: 1.25 mg Documented By: DAWSON Levothyroxine Sodium (Levothyroxine Sodium 75 Mcg Tablet) 75 mcg PO DAILY@0600 [facility] Last Admin: 02/17/25 05:16 Dose: 75 mcg Documented By: ARABELLA Lorazepam (Lorazepam 0.5 Mg Tablet) 0.5 mg PO Q4H PRN PRN Reason: Breakthrough alcohol withdrawa Stop: 02/19/25 11:17 Magnesium Hydroxide (Milk Of Magnesia 30 Ml Oral.Susp) 30 ml PO DAILY PRN PRN Reason: Constipation Melatonin (Melatonin 3 Mg Tablet) 6 mg PO BEDTIME PRN PRN Reason: Insomnia Ondansetron HCl (Ondansetron Hcl 4 Mg/2 Ml Vial) 4 mg IVPUSH Q8H PRN PRN Reason: Nausea and Vomiting Polyethylene Glycol (Polyethylene Glycol 3350 17 Gm Powd.Pack) 17 gm PO DAILY PRN PRN Reason: Constipation Prednisone (Prednisone 20 Mg Tablet) 40 mg PO DAILY [facility] Last Admin: 02/17/25 08:23 Dose: 40 mg Documented By: TIEN Rivaroxaban (Rivaroxaban 20 Mg Tablet) 20 mg PO DAILY@1730 [facility] Last Admin: 02/16/25 17:14 Dose: 20 mg Documented By: AASHISH Sodium Chloride (0.9 % Sodium Chloride Flush 3 Ml Syringe) 3 ml IVFLUSH QSHIFT [facility] Last Admin: 02/17/25 08:25 Dose: 3 ml Documented By: TIEN Theophylline (Theophylline Anhydrous Er 400 Mg Tab.Er.24h) 400 mg PO DAILY [facility] Last Admin: 02/17/25 08:25 Dose: 400 mg Documented By: TIEN Tiotropium [place] (Tiotropium [place] 2.5 Mcg 1 Puff/2.5 Mcg Mist.Inhal) 2 puff INHALE RDAILY [facility] Last Admin: 02/17/25 07:39 Dose: 2 puff Documented By: RADHA Vitamin D (Cholecalciferol (Vitamin D3) 25 Mcg Tablet) 25 mcg PO DAILY [facility] Last Admin: 02/17/25 08:25 Dose: 25 mcg Documented By: TIEN Labs 02/17/25 08:51 02/17/25 08:51 Labs: Laboratory Results - last 24 hr 02/17/25 02/17/25 08:51 08:58 MCV 96.7 MCH 32.2 MCHC 33.3 RDW 12.7 Plt Count 314 MPV 11.7 Absolute Nucleated RBC 0.060 H Nucleated RBC % (auto) 0.3 H VBG pH 7.41 VBG pCO2 72 VBG pO2 36 VBG HCO3 47 H VBG O2 Saturation 49.0 VBG Base Excess 18.7 Anion Gap 14 Estim Creat Clear Calc 71.9 Estimated GFR > 60 Random Glucose 115 Calcium 10.2 Magnesium 1.7 Assessment and Plan (1) Atrial fibrillation with RVR: Status: Acute Plan d3 for 69yo M with COPD with recently diagnosed AF, admitted for AF/RVR and COPD exacerbation AF/RVR - off diltiazem drip, changed to PO diltiazem, now NSR with frequent PACs - possible allergic rash to apixaban; changed to rivaroxaban with good tolerance - Cardiology consulted, follow-up as outpt with Dr Fernandez COPD exacerbation - changed methylprednisolone to prednisone, changed nebs to levalbuterol, continue doxycycline 02/15-, continue ICS-LABA + LAMA + theophylline acute hypoxic respiratory failure chronic hypercarbic respiratory failure - supplemental O2, wean as tolerated - goal O2 no greater than 88-92% excess EtOH intake - prn CIWA, counseling to cut down hypothyroidism - decrease LT4 from 88 mcg to 75 mcg daily given over-suppressed TSH; repeat TSH in 4-6 wk HTN - lisinopril held by primary care doctor, continue diltiazem VTE ppx - riavroxaban dispo - PT eval In my clinical judgment, the patient requires continued inpatient hospitalization for the following reasons: hypoxia, COPD Total time managing care of this patient today: 35 minutes. Quality Stroke Does the patient have a stroke diagnosis?: No VTE Prior VTE?: No VTE Risk Level:: Medical - moderate - high VTE Device Contraindication: Treatment Not Indicated VTE Drug Contraindication: N/A - Med Ordered
--- NOTE | 2025-02-17 13:19 | PC.NURSE ---
Called pharmacy regarding Mucinex DM medication not available on unit.
[2025-02-17] MEDS: Rivaroxaban 20 MG TABLET PO (16:05)
[2025-02-17] MEDS: guaiFENesin DM 600/30 1 TAB TAB.ER.12H 2 TAB PO (20:05)
[2025-02-18] MEDS: diphenhydrAMINE HCL 25 MG CAPSULE PO (00:14)
[2025-02-18 04:00] VITALS: BP 139/64; PULSE 81; RESP 18; TEMP 36.2; O2SAT 95
[2025-02-18] MEDS: Levothyroxine Sodium 75 MCG TABLET PO (05:34)
[2025-02-18] MEDS: predniSONE 20 MG TABLET 40 MG PO (07:46)
[2025-02-18] MEDS: Doxycycline Monohydrate 100 MG CAPSULE PO (07:46)
[2025-02-18 07:47] VITALS: BP 141/88; PULSE 90
[2025-02-18] MEDS: dilTIAZem HCL CD 240 MG CAP.ER.DEG PO (07:47)
[2025-02-18] MEDS: guaiFENesin DM 600/30 1 TAB TAB.ER.12H 2 TAB PO (07:47)
[2025-02-18] MEDS: 0.9 % Sodium Chloride Flush 3 ML SYRINGE IVFLUSH (07:48)
[2025-02-18] MEDS: Atorvastatin Calcium 40 MG TABLET PO (07:48)
[2025-02-18] MEDS: Theophylline Anhydrous ER 400 MG TAB.ER.24H PO (07:48)
[2025-02-18] MEDS: Furosemide 40 MG TABLET PO (07:48)
[2025-02-18] MEDS: Cholecalciferol (Vitamin D3) 25 MCG TABLET PO (07:48)
[2025-02-18 07:49] VITALS: BP 141/88; PULSE 72; RESP 18; TEMP 36.2; O2SAT 96
[2025-02-18] MEDS: Tiotropium Bromide 2.5 mcg 1 PUFF/2.5 MCG MIST.INHAL 2 PUFF INHALE (07:57)
[2025-02-18] MEDS: Fluticasone/Vilanterol 100/25 BLST.W.DEV 1 PUFF INHALE (07:58)
[2025-02-18 08:01] VITALS: PULSE 77; RESP 18; O2SAT 94
--- NOTE | 2025-02-18 11:53 | P.DS_ITS ---
DS: Providers Provider Date of Service: 02/18/25 Date of admission: 02/15/25 10:15 Date of discharge: 02/18/25 Primary care physician: Artie Lentz NP Consults: 02/15/25 11:18 Addiction Medicine Provider Routine Consulting Provider: Addiction Covering Reason for consultation: Daily ETOH Has provider been notified: Yes 02/15/25 11:59 Consult to Pulmonology Routine Consulting Provider: Salvador Ramos Reason for consultation: COPD exacerbation Has provider been notified: No 02/16/25 08:22 Consult to Cardiology Routine Consulting Provider: [facility] Reason for consultation: af.rvr\ DS: Diagnosis Discharge Diagnosis (1) Atrial fibrillation with RVR: Status: Acute (2) Chronic obstructive pulmonary disease with (acute) exacerbation: Status: Acute (3) Supplemental oxygen dependent: Status: Acute (4) Hypothyroid: Status: Acute DS: Summary Hospital Course Hospital Course: From the history and physical by the admitting hospitalist, Skylar Miller NP, 02/15/25: 69-year-old male with a past medical history of COPD, oxygen dependent at home at 3 L, history of newly diagnosed AFib with RVR 3 weeks ago, hyperlipidemia, hypothyroidism, pulmonary nodules, history of EtOH who presented to the ED after reporting that he developed a rash all over his body. He was started on Eliquis and diltiazem for newly diagnosed AFib, he stopped these due to the rash 5 days ago. Per external notes [facility] he was found to be in AFib with RVR on 01/20/2025 and was sent to the ED for evaluation. He was seen at [facility] ED where he was given a dose of diltiazem and his heart rate converted back into sinus. He was seen by Dr. Suarez in the ED who was started on Eliquis and diltiazem, it was recommended that he was admitted Ta that time but he requested to be DC home and was given a prescription for Eliquis and diltiazem. Presents today with shortness of breath worsened 1 day ago. Patient reports that he drinks 1.75 L of hard liquor over a 4 day period. Reports that he is a daily drinker for years. Patient reports that he stopped smoking for months ago but he occasionally has a cigarette. Denies any drug use. Patient is followed by the [facility] as an outpatient. Here in the ED he was found to have a WBC of 13.1, H&H 11.7/34.9, ABGs within normal limits. BUN/CREAT 18/ 1.0. Chest x-ray with no active disease. Troponin negative. He received a dose of Solu-Medrol in the emergency room, started on a Cardizem drip, received a dose of IV digoxin. Restarted on Xarelto due to possible allergy to Eliquis. He received nebulization treatments in the ED. He reported that he developed a rash all over his body although no rashes present on exam. Trace edema. Patient had a echo in November that showed a LVEF of 70%. He has been seen by Dr. Ramos most recently for severe COPD. He was started on furosemide for orthopnea and edema with improvement by Dr. Ramos. 69yo M with COPD with recently diagnosed AF, admitted to the telemetry unit for AF/RVR and COPD exacerbation. Hospital course by problem: AF/RVR - Treated with diltiazem drip, then changed to PO diltiazem once converted to NSR with frequent PACs. - Question of allergic rash to apixaban; changed to rivaroxaban with good tolerance, so anticoagulation changed to rivaroxaban. - Cardiology consulted; patient to follow-up with Dr Fernandez. COPD exacerbation - Treated with IV methylprednisolone then PO prednisone, changed nebs and rescue inhaler from albuterol to levalbuterol. Also treated with doxycycline. Discharged on 3 days of prednisone plus doxycycline. He is on 3L O2 at all times. excess EtOH intake - No signs of withdrawal. Counseled to cut down alcohol intake. hypothyroidism - Decreased LT4 from 88 mcg to 75 mcg daily given over-suppressed TSH; repeat TSH in 4-6 wk. He was discharged home with instructions to follow up with Primary Care and Cardiology as well as referral for outpatient pulmonary rehabilitation at [facility]. Time Attestation Discharge Coordination Time (in mins): 35 Quality: Safe Use of Opioids Does Pt have an Active Cancer Diagnosis on the Problem List?: No Quality: Stroke Does the patient have a stroke diagnosis?: No Physical Exam 2 Vital Signs: Vital Signs: Last Vital Signs Temp 97.2 F 02/18/25 07:49 Pulse 77 02/18/25 08:01 Resp 18 05/16/25 08:01 BP 141/88 H 02/18/25 07:49 Pulse Ox 96 02/18/25 07:49 O2 Del Method Room Air 02/18/25 07:49 O2 Flow Rate 2 02/18/25 04:00 Oxygen Flow Rate 3 02/15/25 08:10 BMI result Body Mass Index 28.4 Gen: in no acute distress HEENT: sclera anicteric, moist mucus membranes Neck: supple Lungs: diminished, no wheezes Heart: regular, no murmurs Abd: soft, non-tender, non-distended Ext: no edema Skin: warm/well-perfused Neuro: alert and oriented x3, no focal findings Psych: appropriate affect DS: Data Data Completed and Pending Completed studies during hospitalization [Text1]: Laboratory Results WBC 19.4 X10*3/uL (4.8-10.8) H 02/17/25 08:51 RBC 3.69 X10*6/uL (4.60-5.80) L 02/17/25 08:51 Hgb 11.9 g/dl (14.0-18.0) L 02/17/25 08:51 Hct 35.7 % (42.0-52.0) L 02/17/25 08:51 MCV 96.7 fL (80.0-98.0) 02/17/25 08:51 MCH 32.2 pg (27.0-33.0) 02/17/25 08:51 MCHC 33.3 g/dl (31.0-36.0) 02/17/25 08:51 RDW 12.7 % (11.0-16.0) 02/17/25 08:51 Plt Count 314 X10*3/uL (160-400) 02/17/25 08:51 MPV 11.7 fL (9.4-12.4) 02/17/25 08:51 Immature Gran % (Auto) 4.0 % (0.0-0.4) H 02/15/25 08:45 Neut % (Auto) 70.6 % (45-73) 02/15/25 08:45 Lymph % (Auto) 10.1 % (20-40) L 02/15/25 08:45 Burt % (Auto) 10.2 % (2-11) 02/15/25 08:45 Eos % (Auto) 4.4 % (0-4) H 02/15/25 08:45 Baso % (Auto) 0.7 % (0-2) 02/15/25 08:45 Lymph # (Auto) 1.3 X10*3/uL (1.2-4.9) 02/15/25 08:45 Burt # (Auto) 1.3 X10*3/uL (0.1-1.2) H 02/15/25 08:45 Eos # (Auto) 0.6 X10*3/uL (0.0-0.4) H 02/15/25 08:45 Baso # (Auto) 0.1 X10*3/uL (0.0-0.2) 02/15/25 08:45 Abs Immat Gran (auto) 0.52 X10*3/uL (0.00-0.03) H 02/15/25 08:45 Absolute Neuts (auto) 9.3 x10*3/uL (2.0-8.3) H 02/15/25 08:45 Absolute Nucleated RBC 0.060 X10*3/uL (0.0-0.012) H 02/17/25 08:51 Nucleated RBC % (auto) 0.3 /100WBC (0.0-0.2) H 02/17/25 08:51 Hold Purple Top SEE NOTE 02/16/25 06:13 Hold Blue Top SEE NOTE 02/15/25 08:45 VBG pH 7.41 (7.32-7.43) 02/17/25 08:58 VBG pCO2 72 mmHg 02/17/25 08:58 VBG pO2 36 mmHg 02/17/25 08:58 VBG HCO3 47 mmol/L (22-26) H 02/17/25 08:58 VBG O2 Saturation 49.0 % 02/17/25 08:58 VBG Base Excess 18.7 mmol/L 02/17/25 08:58 Sodium 141 mmol/L (135-145) 02/17/25 08:51 Potassium 4.2 mmol/L (3.3-5.1) 02/17/25 08:51 Chloride 93 mmol/L (96-108) L 02/17/25 08:51 Carbon Dioxide 38 mmol/L (22-29) H 02/17/25 08:51 Anion Gap 14 (12-20) 02/17/25 08:51 BUN 33 mg/dL (9-16) H 02/17/25 08:51 Creatinine 1.03 mg/dL (0.5-1.4) 02/17/25 08:51 Estim Creat Clear Calc 71.9 02/17/25 08:51 Estimated GFR > 60 02/17/25 08:51 Random Glucose 115 mg/dL (60-115) 02/17/25 08:51 Calcium 10.2 mg/dL (8.4-10.2) 02/17/25 08:51 Magnesium 1.7 mg/dL (1.6-2.6) 02/17/25 08:51 Total Bilirubin 0.7 mg/dL (0.0-1.0) 02/15/25 08:45 AST 34 U/L (5-37) 02/15/25 08:45 ALT 10 U/L (0-40) 02/15/25 08:45 Alkaline Phosphatase 124 U/L (39-117) H 02/15/25 08:45 Troponin I High Sens 9.3 ng/L (<3.5-35.0) 02/15/25 08:45 Total Protein 7.1 g/dL (6.5-8.0) 02/15/25 08:45 Albumin 3.9 g/dL (3.5-5.0) 02/15/25 08:45 TSH 0.28 uIU/mL (0.32-4.0) L 02/16/25 06:13 Free T4 1.01 ng/dL (0.71-1.85) 02/16/25 06:13 Influenza Type A (PCR) NEGATIVE (Negative) 02/15/25 12:08 Influenza Type B (PCR) NEGATIVE (Negative) 02/15/25 12:08 RSV RNA Qual (PCR) NEGATIVE (Negative) 02/15/25 12:08 SARS-CoV-2 RNA (RT-PCR) NEGATIVE (Negative) 02/15/25 12:08 Impressions Chest X-Ray 02/15/25 08:16 IMPRESSION: No active pulmonary disease. Electronically signed by: Marty Pelletier MD 02/15/2025 09:15 AM EDT Discharge Plan Discharge Anticipated Discharge Date/Time: 02/18/25 11:45 Patient Disposition: Home, Self-Care Discharge Diagnosis: COPD exacerbation atrial fibrillation heavy alcohol use Referrals: Physical Therapy - [facility] [Outside] - 1 Week (pulmonary rehab ) Artie Lentz NP [Primary Care Provider] - 1 Week Onel Suarez MD [Physician] - 2 Weeks Discharge Medications: New diltiazem HCl 240 mg Capsule,Extended Release 24hr 240 mg PO DAILY Qty: 30 0RF Protocol: Hold for SBP/HR < HOLD for SBP < : 90 HOLD for HR < : 60 prednisone 20 mg Tablet 40 mg PO DAILY Qty: 3 0RF levothyroxine 75 mcg Tablet 75 mcg PO DAILY@0600 Qty: 30 0RF doxycycline monohydrate 100 mg Capsule 100 mg PO BID@0800,1500 Qty: 6 0RF levalbuterol HCl 1.25 mg/3 mL Solution For Nebulization 1.25 mg inhalation Q4H PRN (Reason: shortness of breath/wheeze) Qty: 50 0RF Xarelto 20 mg Tablet 20 mg PO DAILY@1730 Qty: 30 0RF levalbuterol tartrate 45 mcg/actuation HFA aerosol inhaler 2 inh inhalation Q4-6H PRN (Reason: shortness of breath or wheezing) Qty: 15 0RF Continued theophylline 400 mg tablet extended release 24 hr 400 mg PO DAILY Qty: 30 6RF atorvastatin 40 mg tablet 40 mg PO DAILY Rx Instructions: 1.5 tablet cholecalciferol (vitamin D3) 25 mcg (1,000 unit) tablet 25 mcg PO DAILY fluticasone propion-salmeterol 250-50 mcg/dose blister with device 1 inh inhalation BID tiotropium bromide 2.5 mcg/actuation mist 2 puff inhalation DAILY furosemide 40 mg tablet 40 mg PO DAILY Qty: 30 6RF Discontinued levothyroxine 88 mcg tablet 88 mcg PO DAILY@0600 albuterol sulfate 90 mcg/actuation HFA aerosol inhaler 2 puff inhalation Q4-6H PRN (Reason: Shortness Of Breath Or Wheezing) albuterol sulfate 2.5 mg /3 mL (0.083 %) solution for nebulization 2.5 mg inhalation Q6H Discharge Orders: Discharge Order (Routine); Ordered 02/18/25 Ordered By: Shyam Palma Diet: Low salt diet Activity on Discharge: As tolerated Stand Alone Forms: Patient Portal Discharge page Print Language: Cook Islander Other Ambulatory Orders: Thyroid Stimulating Hormone (Routine) Timeframe: 1 Month Facility: [facility] - Location: Laboratory Ordered By: Shyam Palma Care Plan Goals: cardiopulmonary health Health Concerns: COPD exacerbation atrial fibrillation heavy alcohol use Plan of Treatment: prednisone 40 mg daily x 3 days doxycycline 100 mg twice daily x 3 days change albuterol to levalbuterol take diltiazem 240 mg once daily change apixaban [Eliquis] to rivaroxaban [Xarelto] decrease levothyroxine from 88 to 75 mcg per day and recheck TSH in 4-6 weeks Please follow up with your primary care doctor within 1 week. Return to the hospital if you experience recurrent or worsening symptoms. Follow up with pear picker Dr Suarez in 2 weeks Outpatient pulmonary rehablitation through [facility] Physical Therapy. Assessment: See Discharge Summary.
[2025-02-18 11:58] VITALS: BP 139/80; PULSE 98; RESP 18; TEMP 36.1; O2SAT 93
--- NOTE | 2025-02-18 12:03 | MHC.CM.PN ---
Pt is medically cleared for discharge home self-care, he will arrange his own transport home at today.
--- NOTE | 2025-03-01 14:50 | P.CDIM_ITS ---
PROVIDER RESPONSE TEXT: To clarify, the appropriate diagnosis supported by the clinical indicators: Paroxysmal atrial fibrillation QUERY TEXT: PHYSICIAN'S DOCUMENTATION REQUEST Date of Query: 02/17/2025 09:24 AM EDT Patient Name: Dickson Em Admit Date: 02/15/2025 Dear Shyam Palma MD, A review of the medical record indicates additional documentation may be needed. Please review below and update the documentation accordingly. Clinical Indicators: Cardiology notes 02/16/25 - Atrial fibrillation with RVR Started on Cardizem drip and subsequently converted to sinus rhythm with ventricular response. Atrial fibrillation rapid ventricular response most likely due to COPD exacerbation. Progress note 02/16/25 - AF/RVR off diltiazem drip, change to PO diltiazem. Follow-up as outpatient. If possible, please provide further specificity regarding atrial fibrillation, such as: Paroxysmal atrial fibrillation Persistent atrial fibrillation Long lasting persistent atrial fibrillation Permanent atrial fibrillation Other (explain) Clinically unable to determine (explain) Thank you, Therese Watson, CCS, CDIS Use of terms such as suspected, likely, concern for, or probable (associated with a specific diagnosi s that is being evaluated, monitored, or treated as if it exists) are acceptable and can be coded in the inpatient se tting, when documented at the time of discharge. Please use your independent medical judgment in providing your response. THIS QUERY IS PART OF THE PERMANENT MEDICAL RECORD
== END 2025-02-18 14:32 | disposition home or self-care (01) | DRG 308 ==
LOC: HO.ED 09:39 → HO.EDOVER 11:42 → HO.IMC 14:28
PROVIDERS: Nurse Practitioner Family; Admitting Provider Family Medicine; Emergency Provider Emergency Medicine; PCP Nurse Practitioner Family; Referring Provider Internal Medicine Pulmonary Disease; Visit Provider Family Medicine
DX: I48.0 Paroxysmal atrial fibrillation (principal); J96.21 Acute and chronic respiratory failure with hypoxia; J96.22 Acute and chronic respiratory failure with hypercapnia; J44.1 Chronic obstructive pulmonary disease with (acute) exacerbation; Z99.81 Dependence on supplemental oxygen; E78.5 Hyperlipidemia, unspecified; E03.9 Hypothyroidism, unspecified; Z66 Do not resuscitate; F10.20 Alcohol dependence, uncomplicated; Z20.822 Contact with and (suspected) exposure to COVID-19; Z87.891 Personal history of nicotine dependence; Z79.01 Long term (current) use of anticoagulants; Z79.51 Long term (current) use of inhaled steroids; Z79.890 Hormone replacement therapy; Z79.899 Other long term (current) drug therapy
CPT/HCPCS: 0241U; 36415; 71045; 80048; 80053; 82803; 83735; 84439; 84443; 84484; 85025; 85027; 93005; 94640; 97161; 99285; J1160; J2919

== ENCOUNTER → 2025-02-15 08:16 | Outpatient (BNV) | payer OTHER, SELFPAY | PROVIDERS: Emergency Provider Emergency Medicine; PCP Nurse Practitioner Family; Visit Provider Radiology Diagnostic Radiology | DX: R06.02 Shortness of breath (principal) | CPT/HCPCS: 71045 ==

== ENCOUNTER 2025-02-15 10:15 | Outpatient (BNV) | payer OTHER, SELFPAY | END 2025-02-16 00:28 | PROVIDERS: Admitting Provider Family Medicine; Emergency Provider Emergency Medicine; PCP Nurse Practitioner Family; Visit Provider Internal Medicine Cardiovascular Disease | DX: I49.1 Atrial premature depolarization (principal) | CPT/HCPCS: 93010 ==

== ENCOUNTER 2025-02-15 10:15 | Outpatient (BNV) | payer OTHER, SELFPAY | END 2025-02-15 16:57 | PROVIDERS: Admitting Provider Family Medicine; Emergency Provider Emergency Medicine; PCP Nurse Practitioner Family; Visit Provider Internal Medicine Cardiovascular Disease | DX: I49.1 Atrial premature depolarization (principal) | CPT/HCPCS: 93010 ==

== ENCOUNTER → 2025-02-15 10:15 | Outpatient (BNV) | payer OTHER, SELFPAY | PROVIDERS: Admitting Provider Family Medicine; Emergency Provider Emergency Medicine; PCP Nurse Practitioner Family; Visit Provider Internal Medicine Cardiovascular Disease | DX: I48.91 Unspecified atrial fibrillation (principal) | CPT/HCPCS: 99222 ==

== ENCOUNTER → 2025-02-15 10:15 | Outpatient (BNV) | payer OTHER, SELFPAY | PROVIDERS: Admitting Provider Family Medicine; Emergency Provider Emergency Medicine; PCP Nurse Practitioner Family; Visit Provider Internal Medicine Pulmonary Disease | DX: I48.91 Unspecified atrial fibrillation (principal); J44.9 Chronic obstructive pulmonary disease, unspecified | CPT/HCPCS: 99222 ==

== ENCOUNTER → 2025-02-15 10:15 | Outpatient (BNV) | payer OTHER, SELFPAY | PROVIDERS: Admitting Provider Family Medicine; Emergency Provider Emergency Medicine; PCP Nurse Practitioner Family; Visit Provider Nurse Practitioner Family | DX: I48.91 Unspecified atrial fibrillation (principal) | CPT/HCPCS: 99232 ==

== ENCOUNTER → 2025-02-15 10:15 | Outpatient (BNV) | payer OTHER, SELFPAY | PROVIDERS: Admitting Provider Family Medicine; Emergency Provider Emergency Medicine; PCP Nurse Practitioner Family; Visit Provider Nurse Practitioner Psychiatric/Mental Health | DX: F10.90 Alcohol use, unspecified, uncomplicated (principal) | CPT/HCPCS: 99221 ==

== ENCOUNTER 2025-03-08 09:10 | Outpatient (REF) | payer OTHER, SELFPAY ==
--- NOTE | ~2025-03-08 | CT_ITS ---
CLINICAL HISTORY: Z87.891 - Personal history of nicotine dependence CT lung cancer screening (LDCT) Comparison: CT/OT/SR - CT OUTSIDE IMAGES - 04/01/24 08:17 EDT Technique: Axial CT images of the chest using low-dose technique. Referring provider counseled the patient on shared decision-making for LDCT screening. Additional counseling was provided on smoking cessation. Effective radiation dose total: DLP 47.1 mGycm, CTDIvol 1.3 mGy. Findings: Pulmonary nodules: Stable 4 mm right upper lobe nodule, axial 35. Stable 3 mm left upper lobe nodule, axial 38. Additional scattered stable 2-3 mm nodules. No new, increasing or suspicious nodule. Incidental pulmonary findings: Mild centrilobular and paraseptal emphysema. Mild airway thickening. No effusion. No pneumothorax. Non pulmonary findings: Coronary artery calcifications: Moderately severe Limited upper abdomen: Unremarkable Other: None Impression: LungRADS 2 - Benign Appearance: Continue annual screening with low dose Chest CT in 12 months. ##L2## Category 1: Normal; continue annual screening Category 2: Benign appearance or behavior, continue annual screening Category 3: Probably benign, [address] recommended Category 4A: Suspicious, [address] recommended; may consider PET/CT Category 4B: Suspicious, Additional diagnostics and/or tissue sampling recommended Category 4X: Suspicious, Additional diagnostics and/or tissue sampling recommended Category 0: Recalls (incomplete screen due to Incomplete coverage, Noise, Respiratory motion, Expiration, Obscured by acute abnormality) This document has been electronically signed by: Dennys Lockhart MD on 03/08/2025 12:51:07
--- OUTSIDE RECORDS SUMMARY | 2025-03-08 10:00 | XMS_ITS ---
Author Name [facility] [place] [facility] [place] Address [address] [place] [id number] Care Team Providers Care [employer] Supervisor Name Role Phone SHERLYN BRADLEY Primary Care [...] PART B Apr 05, 2020 PART B [id number] [facility] PATIENT MEDICARE (WNR) MEDICARE (M) PART A Mar 06, 2019 PART A [id number] [facility] F[facility] PATIENT Selected Encounter This section includes the information on record at [place] for the Encounter. Date/Time Encounter Type Encounter Description Reason Pro vider Source March 03, 2025 10:17 AM Outpatient Encounter COMMUNITY CARE CONSULT IHE [...] 20 appointments. The data comes from all [place] treatment facilities. Appointment Date/Time Appointment Type Appointme nt Facility Name Mar 15, 2025 07:45 AM AMBULATORY - MEDICINE [facility] Jun 30, 2025 09:30 AM AMBULATORY - MEDICINE [facility] Jul 26, 2025 09:00 AM AMBULATORY MEDICINE [facility] Active, Pending, and Scheduled Orders This section includes a listing of several types of active, pending, and scheduled orders, including clinic medications orders, diagnostic test orders, procedure orders and consult orders; where the start date of the order is 45 days before the date of the Encounter or 45 days after the date of theEncounter. The data comes from all [facility]. Test Date/Time Test Type Test Details Facility Name Jan 20, 2025 12:00 AM Laboratory - Chemi stry Order BASIC METABOLIC PANEL (non-fasting) BLOOD (SST-SERUM) SP [facility] Jan 24, 2025 03:22 PM Consult Order COMMUNITY CARE-OPHTHALMOLOGY Cons Bench Assembler Operator's Choice [facility] Jan 25, 2025 02:39 PM Consult Order COMMUNITY CARE-CARDIOLOGY Cons Bench Assembler Operator's Choice [facility] February 10, 2025 12:00 AM Imaging - General Radiology Order OUTSIDE MRI BRAIN W/WO CONTRAST [facility] March 01, 2025 02:53 PM Consult Order COMMUNITY CARE-PULMONARY Cons Bench Assembler Operator's Choice [facility] Social History: Smoking Status (Most current) and Tobacco Use (All prior to encounter date) This section includes the most current, and the historical, smoking and tobacco- related health factors from the [place] facility where the Encounter took place. Current Smoking Status This section includes the most current smoking, or tobacco-related health factor, from the [place] facility where the Encounter took place. Date/Time Current Smoking Status Comment Dinesh welch Sep 14, 2024 08:00 AM VA-TOBACCO USE ОЛЕГ RY DAY CIGARETTES [facility] Tobacco Use History This section includes a history of the smoking, or tobacco-related health factors, that were collected on or before the date of the Encounter. The data comes from the [place] facility where the Encounter took place. Date/Time Smoking Status/Tobacco Use Comment F acility Sep 14, 2024 08:00 AM VA-TOBACCO SCREEN FOLLOW-UP [facility] Sep 14, 2024 08:00 AM VA-TOBACCO USE ADVICE [facility] Sep 14, 2024 08:00 AM VA-TOBACCO USE JUDICIAL CLERK NO [facility] Sep 14, 2024 08:00 AM VA-TOBACCO USE ОЛЕГ RY DAY CIGARETTES [facility] Sep 14, 2024 08:00 AM VA-TOBACCO USE MED NO [facility] [place] [facility] Sep 04, 2023 01:14 PM VA-TOBACCO USE 30 YEARS OR MORE [facility] [place] Sep 04, 2023 01:14 PM VA-TOBACCO USE ADVICE [facility] [place] [facility] Sep 04, 2023 01:14 PM VA-TOBACCO USE JUDICIAL CLERK NO [facility] [place] [facility] Sep 04, 2023 01:14 PM VA-TOBACCO USE MED NO [facility] [place] [facility] Sep 04, 2023 01:14 PM VA-TOBACCO USE WI 30 MIN OF WAKEUP [facility] [place] [facility] Sep 04, 2023 01:14 PM VA-TOBACCO USER EVERY DAY [facility] [place] Oct 01, 2022 09:45 AM VA-TOBACCO DOESNT USE WI 30 MIN WAKEUP [facility] [place] [facility] Oct 01, 2022 09:45 AM VA-TOBACCO USE 30 YEARS OR MORE [facility] [place] [facility] Oct 01, 2022 09:45 AM VA-TOBACCO USE ADVICE [facility] [place] [facility] Oct 01, 2022 09:45 AM VA-TOBACCO USE JUDICIAL CLERK NO [facility] [place] [facility] Oct 01, 2022 09:45 AM VA-TOBACCO USE MED NO [facility] [place] [facility] Oct 01, 2022 09:45 AM VA-TOBACCO USER EVERY DAY [facility] [place] [facility] Sep 07, 2021 10:30 AM VA-TOBACCO USE 30 YEARS OR MORE [facility] [place] [facility] Sep 07, 2021 10:30 AM VA-TOBACCO USE ADVICE [facility] [place] [facility] Sep 07, 2021 10:30 AM VA-TOBACCO USE JUDICIAL CLERK NO [facility] [place] [facility] Sep 07, 2021 10:30 AM VA-TOBACCO USE MED NO [facility] [place] [facility] Sep 07, 2021 10:30 AM VA-TOBACCO USE WI 30 MIN OF WAKEUP [facility] [place] [facility] Sep 07, 2021 10:30 AM VA-TOBACCO USER EVERY DAY [facility] [place] [facility] Jun 08, 2020 09:00 AM VA-TOBACCO USE 30 YEARS OR MORE [facility] [place] [facility] Jun 08, 2020 09:00 AM VA-TOBACCO USE ADVICE [facility] [place] [facility] Jun 08, 2020 09:00 AM VA-TOBACCO USE JUDICIAL CLERK NO [facility] [place] [facility] Jun 08, 2020 09:00 AM VA-TOBACCO USE MED NO [facility] [place] [facility] Jun 08, 2020 09:00 AM VA-TOBACCO USE WI 30 MIN OF WAKEUP [facility] [place] [facility] Jun 08, 2020 09:00 AM VA-TOBACCO USER EVERY DAY [facility] [place] [facility] Feb 01, 2019 02:27 PM VA-TOBACCO USE 30 YEARS OR MORE [facility] [place] [facility] Feb 01, 2019 02:27 PM VA-TOBACCO USE ADVICE [facility] [place] [facility] Feb 01, 2019 02:27 PM VA-TOBACCO USE JUDICIAL CLERK NO [facility] [place] [facility] Feb 01, 2019 02:27 PM VA-TOBACCO USE MED NO [facility] [place] [facility] Feb 01, 2019 02:27 PM VA-TOBACCO USE WI 30 MIN OF WAKEUP [facility] [place] [facility] Feb 01, 2019 02:27 PM VA-TOBACCO USER EVERY DAY [facility] Apr 02, 2018 02:47 PM [facility] Apr 02, 2018 02:47 PM V1-PT DECLINES REF TO TOBACCO CESS PRGM [facility] Apr 02, 2018 02:47 PM V1-PT DECLINES TOB ACCO CESSATION MEDS [facility] Apr 02, 2018 02:47 PM V1-PT THINKING ABO UT QUIT TOBACCO USE [facility] Radiology Reports: +/- 30 days of the [...] the Encounter. The data comes from all [place] treatment facilities. Date/Time Radiology Report Provider Source Feb 02, 2025 08:57 AM MRI BRAIN W/WO CONTRAST: KINGSTON RENDON [id number] -[id number] M Exm Date: FEB 02, 2025@08:57 Req Phys: JEEVAN RILEY Loc: [facility] ENDOCRINE 1 (Req'g Loc) Img Loc: [facility] MRI Service: [place] [address] (Case [id number] COMPLETE) MRI BRAIN W/WO CONTRAST (MRI Detailed) CPT:24216 Contrast Media : Gadolinium Reason for Study: Pituitary adenoma, worsening vision Clinical History: PLEASE NOTE If patient is claustrophobic consider ordering anti-anxiety medication prior to MRI. Safety Assessment: You must answer ALL questions or this questionnaire is not captured. Ordering provider, phone number and beeper:Ericka/Yanique Maurer RN [phone] Weight: 205 lb [92.99 kg] (01/20/2025 [...] 02, 2025 Date Verified: FEB 02, 2025 Bullet Swaging Machine Operator E-Sig:/ES/ASHANTI ROMERO Report: PITUITARY MRI W/WO: CLINICAL INDICATION: Reason for Study: Pituitary adenoma, worsening vision PLEASE NOTE If patient is claustrophobic consider ordering anti-anxiety medication prior to MRI. Safety Assessment: You must answer ALL questions or this questionnaire is not captured. Ordering provider, phone number and beeper:Ericka/Yanique Maurer RN [phone] Weight: 205 l REASON FOR STUDY: [...] the junction of the adeno and neurohypophysis. [place] gland: Normal volume and positioned within the [...] Primary Interpreting Staff: ASHANTI ROMERO, Staff Physician (Bullet Swaging Machine Operator) /ASHANTI CODY [facility] Feb 02, 2025 08:28 AM BONE DENSITY DXA: [place] [id number] -[id number] M Ex Date: FEB 02, 2025@08:28 Req Phys: JEEVAN RILEY Loc: [facility] ENDOCRINE MD 1 (Req'g Loc) Img Loc: [facility] 1 Service: [place] [address] (Case [id number] COMPLETE) BONE DENSITY AXIAL-DXA (RAD Detailed) CPT:83982 Reason for Study: osteoporosis Clinical History: Report Status: Verified Date Reported: FEB 02, 2025 Date Verified: FEB 02, 2025 Bullet Swaging Machine Operator E-Sig:/ES/AUSTIN GARCIA Report: DXA BONE DENSITY AXIAL: [...] MODEL: The exam was performed on a Hologic Horizon A system at [place], [place]. YOUNG AGE Bone Mineral ADULT [...] Primary Interpreting Staff: AUSTIN GARCIA Staff Physician (Bullet Swaging Machine Operator) /AUSTIN MORRIS [facility] Encounter Notes: All associated encounter notes This section contains the clinical notes associated to the Encounter. Date/Time Encounter Note(s) Provider Source Jan 20, 2025 09:25 AM NONVA NOTE: LOCAL TITLE: [facility] CARE COORD PLAN STANDARD TITLE: NONVA NOTE DATE OF NOTE: JAN 20, 2025@09:25 ENTRY DATE: MARCH 03, 2025@10:17:39 AUTHOR: ALESSANDRO PELAYO COSIGNER: URGENCY: STATUS: COMPLETED Emergency Notification Intake Date Presenting to the Facility: Jan Method of Contact: Notified from [facility] worklist Notification ID: [id number] [facility] Referral #: [id number] [facility] Name: Hospital: [place] Address: City: [place] State: [place] Zip Code: Phone : Community Facility Point of Contact: Name: Kerry Phone: Chief complaint: [id number] - Unspecified atrial fibrillation Primary Diagnosis: Disposition Discharged Date of discharge: Jan Discharge to Comment: ER Only /lolly/ ALESSANDRO QUICK Signed: 03/03/2025 10:18 Receipt Acknowledged By: * AWAITING SIGNATURE * BHASKAR HILLMAN DAWN MARIE CHANDLER
== END 2025-03-08 09:11 | disposition home or self-care (01) ==
LOC: HO.CT 09:10
PROVIDERS: PCP Nurse Practitioner Family; Visit Provider Internal Medicine Pulmonary Disease
DX: Z12.2 Encounter for screening for malignant neoplasm of respiratory organs (principal); Z87.891 Personal history of nicotine dependence
CPT/HCPCS: 71271

== ENCOUNTER → 2025-03-08 09:12 | Outpatient (BNV) | payer OTHER, SELFPAY | PROVIDERS: PCP Nurse Practitioner Family; Visit Provider Radiology Vascular & Interventional Radiology | DX: Z87.891 Personal history of nicotine dependence (principal) | CPT/HCPCS: 71271 ==

== ENCOUNTER 2025-05-07 16:15 | Inpatient (IN) | payer OTHER, SELFPAY ==
[2025-05-07] VITALS (14 sets, daily range): BP systolic 122–160; BP diastolic 64–76; PULSE 11–160; RESP 16–28; TEMP 36.5; O2SAT 75–100; BMI 30.5
--- NOTE | 2025-05-07 | ECG_ITS ---
Test Reason : TACHY Blood Pressure : */* mmHG Vent. Rate : 122 BPM Atrial Rate : 122 BPM P-R Int : 126 ms QRS Dur : 74 ms QT Int : 320 ms P-R-T Axes : 69 61 60 degrees QTcB Int : 456 ms Sinus tachycardia with Premature supraventricular complexes Nonspecific ST and T wave abnormality Abnormal ECG When compared with ECG of 07-May-2025 16:30, Nonspecific T wave abnormality no longer evident in Inferior leads Referred By: Hector Valdez Electronically Signed By: JULIETTE SAENZ MD
--- NOTE | ~2025-05-07 | CT_ITS ---
CLINICAL HISTORY: tachy, hypoxic, r o PE CT angiography chest using contrast. 3-D postprocessing Comparison: CR - XR CHEST 1V - 05/07/25 16:[address]/SR - CT LUNG SCREENING - 03/08/25 09:17 EDT Findings: No pulmonary embolism. There is ectasia of the ascending thoracic aorta, measuring up to 4.2 cm in maximal cross-sectional dimension. No thoracic aorta dissection. Heart size within normal limits. Coronary artery calcifications are present. Mild centrilobular emphysema. Minimal subsegmental atelectasis present at the inferior aspect of the lingula. Minimal airspace opacities are present at the right middle lobe. Mild bronchial wall thickening. No pneumothorax or pleural effusion. Visualized upper abdomen unremarkable. No acute fractures. Impression: 1. Negative for pulmonary embolism. 2. Mild bronchial wall thickening, which may be seen in the setting of a mild viral infection/bronchitis. There is minimal atelectasis versus infiltrates at the right middle lobe with minimal subsegmental atelectasis at the inferior aspect of the lingula. This document has been electronically signed by: Regulo Bright MD on 05/08/2025 02:12:49
--- NOTE | ~2025-05-07 | XR_ITS ---
CLINICAL HISTORY: L3-L4 pain atraumatic 3 views lumbar spine Comparison: None Findings: No fractures or dislocations. Normal vertebral body alignment. Anterior degenerative disc margin osteophytes are present and there is facet hypertrophy at L4-5 and L5-S1. Sacroiliac joints unremarkable. Impression: Vertebral bodies are normal in height. Posterior facet hypertrophy at L4-5 and L5-S1 with no spondylolisthesis. This document has been electronically signed by: Jeremie Leavitt MD on 05/07/2025 19:06:37
--- NOTE | ~2025-05-07 | XR_ITS ---
CLINICAL HISTORY: dyspnea --- Additional Notes or Special Instructions: busy ([id number] 1 view chest x-ray. Comparison: CT 03/08/2025 Findings: No consolidation. No pneumothorax. Heart size normal. Pulmonary vasculature is within limits of normal. No acute fracture. Impression: Lungs are clear. Small 2-4 mm diameter nodules described in the upper lobes on prior CT are not visualized by plain film x-ray due to differences in modality. This document has been electronically signed by: Jeremie Leavitt MD on 05/07/2025 17:39:19
--- NOTE | 2025-05-07 16:33 | ECG_ITS ---
Test Reason : SOB Blood Pressure : */* mmHG Vent. Rate : 117 BPM Atrial Rate : 117 BPM P-R Int : 138 ms QRS Dur : 78 ms QT Int : 330 ms P-R-T Axes : 86 61 65 degrees QTcB Int : 460 ms Sinus tachycardia with Premature atrial complexes Otherwise normal ECG When compared with ECG of 16-Feb-2025 00:28, No significant change was found Referred By: Generic ED Physician Electronically Signed By: JULIETTE SAENZ MD
--- NOTE | 2025-05-07 16:42 | PC.RT ---
Pt assessed by RT. Per RN, SATs 75% on RA. Pt is 3L baseline. Pt placed on NC 3L, SATs 94%. L/S clear bilateral w/ mild grunting. Pt received breathing tx by EMS.
[2025-05-07 16:57] LABS: MANUAL DIFF FLAG NO
[2025-05-07 16:59] LABS: Hematocrit 37.1 % (42.0-52.0); Hemoglobin 12.5 g/dl (14.0-18.0); Imm Gran Abs Auto 0.08 X10*3/uL (0.00-0.03); Imm Gran Pct Auto 0.6 % (0.0-0.4); Lymphocytes Absolute Auto 1.3 X10*3/uL (1.2-4.9); Mean Corpuscular HGB Conc 33.7 g/dl (31.0-36.0); Mean Corpuscular Hemoglobin 30.9 pg (27.0-33.0); Mean Corpuscular Volume 91.6 fL (80.0-98.0); NRBC Abs Auto 0.000 X10*3/uL (0.0-0.012); NRBC Pct Auto 0.0 /100WBC (0.0-0.2); Platelet Count 242 X10*3/uL (160-400); Red Blood Count 4.05 X10*6/uL (4.60-5.80); White Blood Count 13.7 X10*3/uL (4.8-10.8)
[2025-05-07 17:17] LABS: Alanine Aminotransferase 23 U/L (0-40); Albumin Level 3.7 g/dL (3.5-5.0); Alkaline Phosphatase 124 U/L (39-117); Anion Gap 17 (12-20); Aspartate Amino Transferase 46 U/L (5-37); Blood Urea Nitrogen 9 mg/dL (9-16); Calcium 9.4 mg/dL (8.4-10.2); Carbon Dioxide 38 mmol/L (22-29); Chloride 87 mmol/L (96-108); Creatinine Clr Calc Pharmacy 96.9; Estimated Glomerular Filt Rate > 60; Potassium 3.5 mmol/L (3.3-5.1); Sodium 138 mmol/L (135-145); Total Protein 6.5 g/dL (6.5-8.0)
[2025-05-07 17:21] LABS: B Type Natriuretic Peptide 44 pg/mL (<100)
[2025-05-07 17:22] LABS: Troponin-I High Sensitivity 15.5 ng/L (<3.5-35.0)
--- NOTE | 2025-05-07 17:24 | ED.GENADULT ---
HPI - General Adult General Chief complaint: Dyspnea Stated complaint: back pain, sob Time Seen by Provider: 05/07/25 17:23 Source: patient Mode of arrival: EMS Limitations: no limitations History of Present Illness ED Provider: HPI narrative: Patient is 69 years old past medical history of COPD oxygen-dependent 3 L atrial fibrillation on Xarelto hyperlipidemia hypothyroidism, alcohol use comes here for nontraumatic low back pain for last 3-4 days patient also does have significant leg edema and is on furosemide also does have history of ETOH use but no history of alcohol withdrawal. No fever no chills patient has been coughing for last few weeks other family member who came from [place] were also sick with cold symptoms in ER patient's rectal temperature was noted to be 100.8 Related Data Home Medications ?Medication ?Instructions ?Recorded ?Confirmed atorvastatin 40 mg tablet 40 mg PO DAILY 10/18/24 02/15/25 cholecalciferol (vitamin D3) 25 25 mcg PO DAILY 10/18/24 02/15/25 mcg (1,000 unit) tablet fluticasone 250 mcg-salmeterol 50 1 inh inhalation BID 10/18/24 02/15/25 mcg/dose blistr powdr for inhalation tiotropium bromide 2.5 2 puff inhalation DAILY 10/18/24 02/15/25 mcg/actuation mist for inhalation Previous Rx's ?Medication ?Instructions ?Recorded furosemide 40 mg tablet 40 mg PO DAILY #30 tabs 12/13/24 theophylline 400 mg 400 mg PO DAILY #30 tabs 01/06/25 tablet,extended release 24 hr diltiazem HCl 240 mg 240 mg PO DAILY #30 caps 02/18/25 capsule,extended release 24 hr doxycycline monohydrate 100 mg 100 mg PO BID@0800,1500 #6 caps 02/18/25 capsule levalbuterol HCl 1.25 mg/3 mL 1.25 mg (3 mL) inhalation Q4H PRN 02/18/25 solution for nebulization shortness of breath/wheeze #50 ea levalbuterol tartrate 45 2 inh inhalation Q4-6H PRN 02/18/25 mcg/actuation aerosol inhaler shortness of breath or wheezing #15 grams levothyroxine 75 mcg tablet 75 mcg PO DAILY@0600 #30 tabs 02/18/25 prednisone 20 mg tablet 40 mg (2 x 20 mg) PO DAILY #3 tabs 02/18/25 rivaroxaban 20 mg tablet (Xarelto) 20 mg PO DAILY@1730 #30 tabs 02/18/25 Allergies Allergy/AdvReac Type Severity Reaction Status Date / Time hydrochlorothiazide AdvReac Severe Rash Verified 05/07/25 16:40 Review of Systems Review of Systems: Yes all other systems are reviewed and are negative [facility] Past Medical History Medical History Alcohol use Pulmonary nodules Supplemental oxygen dependent Atrial fibrillation with RVR Hypothyroid COPD (chronic obstructive pulmonary disease) Social History Social History Household Members: Family Housing: House Do you presently have visiting nurse or other home services: No Alcohol intake: current Comment: Reports 1.75 L hard liquor over a 4 day period daily Patient Tobacco Use Status: Former Tobacco user Tobacco use type: Cigarette Years Smoked: started at age 12, 2-3 PPD, quit 10/16/2024 Smoked in Last 30 Days: Yes Use of substances other than those prescribed or required for medical reasons: No Advance Directives: No Advance Directives Information Provided: No service: Yes Physical Exam ED Vital Signs: Vital Signs - 24 hr 05/07/25 16:34 05/07/25 16:41 05/07/25 19:15 Temperature 97.7 F Pulse Rate 112 H 160 H 130 H Respiratory Rate 28 H 24 H 24 H Blood Pressure 138/71 Pulse Oximetry 75 L 92 83 L Oxygen Delivery Method Room Air Nasal Cannula Nasal Cannula Oxygen Flow Rate 3 3 05/07/25 19:17 05/07/25 19:20 05/07/25 19:30 Temperature Pulse Rate 122 H 109 H Respiratory Rate 23 H 22 H 21 H Blood Pressure Pulse Oximetry 86 L 89 L 100 Oxygen Delivery Method Nasal Cannula Non-Rebreather Mask Non-Rebreather Mask Oxygen Flow Rate 6 05/07/25 19:32 05/07/25 19:36 05/07/25 20:05 Temperature Pulse Rate 11 L 117 H Respiratory Rate 22 H 25 H Blood Pressure 160/65 H 129/73 Pulse Oximetry 93 Oxygen Delivery Method Oxymask Oxygen Flow Rate 4 05/07/25 20:50 05/07/25 21:00 05/07/25 21:23 Temperature Pulse Rate 123 H 122 H Respiratory Rate 22 H Blood Pressure 130/64 Pulse Oximetry 87 L 93 Oxygen Delivery Method Oxymask Oxymask Oxygen Flow Rate 4 5 05/07/25 21:30 05/07/25 22:13 Temperature Pulse Rate 104 H 106 H Respiratory Rate 23 H 16 Blood Pressure 122/66 136/72 Pulse Oximetry 91 L 97 Oxygen Delivery Method Oxymask Oxymask Oxygen Flow Rate 5 5 BMI result Body Mass Index 30.5 Appearance: Alert. Oriented X3. No acute distress. Eyes: No pallor or icterus ENT: Pharynx normal. Oral Mucosa moist Neck: Normal inspection. Neck supple. CVS: Normal heart rate and rhythm. Pulses normal. Respiratory: No respiratory distress. Equal air entry bilateral, no wheezing/rales/rhonchi prolonged expiration Abdomen: Soft and nontender. Bowel sounds are present, no mass palpable, no CVA tenderness Skin: Skin warm and dry. Normal skin color. Normal skin turgor. Extremities: 4+ lower extremity edema. No calf tenderness Back: Diffuse tenderness L3-L4 area Neuro: Oriented X 3. No motor deficit. No sensory deficit.No cerebellar signs , cranial nerves II-XII intact Medications Administered Discontinued Medications Generic Name Dose Route Start Last Admin Trade Name Freq PRN Reason Stop Dose Admin Acetaminophen 650 mg 05/07/25 19:27 05/07/25 20:01 Acetaminophen 325 Mg Tablet PO 05/07/25 19:28 650 mg ONCE ONE Administration Ceftriaxone Sodium 2 gm 05/07/25 19:25 05/07/25 19:47 Ceftriaxone Sodium 2 Gm Vial IVPUSH 05/07/25 19:26 2 gm ONCE ONE Administration Albuterol Sulfate 5 mg/ 0 mg 05/07/25 19:23 05/07/25 19:45 Albuterol/Ipratropium 3 ml INHALE 05/07/25 19:24 1 each ONCE ONE Administration Diltiazem HCl 10 mg 05/07/25 21:19 05/07/25 21:23 Diltiazem Hcl 50 Mg/10 Ml Vial IVPUSH 05/07/25 21:20 10 mg NOW STA Administration Furosemide 20 mg 05/07/25 19:25 05/07/25 19:32 Furosemide 20 Mg/2 Ml Vial IVPUSH 05/07/25 19:26 20 mg ONCE ONE Administration Protocol Iohexol 75 ml 05/08/25 01:13 05/08/25 01:14 Iohexol 350 Mg/Ml 100 Ml Infus..Btl IV 05/08/25 01:14 75 ml ONCE ONE Administration Medical Decision Making Medical Decision Making [facility] Narrative: Patient alcoholic, COPD oxygen-dependent , AFib comes here for low back pain with increased shortness a breath increased leg swelling with desaturated in the 80s with heart rate went to 160's responded to IV Cardizem will admit patient for acute on chronic respiratory failure with AFib Differential Diagnosis Differential Diagnoses: The differential diagnosis associated with the presentation includes CHF/AFib/chronic back pain/COPD Admission/Observation Consideration of admission/observation: Escalation of care including admission/observation considered Consult Healthcare Provider Management of the patient was discussed with: Hospitalist Lab Data [facility] Lab Attestation statement: I reviewed the patient's lab results. 05/07/25 16:52 05/07/25 16:52 Labs: Lab Results 05/07/25 05/07/25 Range/Units 16:52 19:49 WBC 13.7 H (4.8-10.8) X10*3/uL RBC 4.05 L (4.60-5.80) X10*6/uL Hgb 12.5 L (14.0-18.0) g/dl Hct 37.1 L (42.0-52.0) % MCV 91.6 (80.0-98.0) fL MCH 30.9 (27.0-33.0) pg MCHC 33.7 (31.0-36.0) g/dl RDW 13.2 (11.0-16.0) % Plt Count 242 (160-400) X10*3/uL MPV 10.5 (9.4-12.4) fL Immature Gran % (Auto) 0.6 H (0.0-0.4) % Neut % (Auto) 80.5 H (45-73) % Lymph % (Auto) 9.8 L (20-40) % Wayne % (Auto) 8.2 (2-11) % Eos % (Auto) 0.8 (0-4) % Baso % (Auto) 0.1 (0-2) % Lymph # (Auto) 1.3 (1.2-4.9) X10*3/uL Wayne # (Auto) 1.1 (0.1-1.2) X10*3/uL Eos # (Auto) 0.1 (0.0-0.4) X10*3/uL Baso # (Auto) 0.0 (0.0-0.2) X10*3/uL Abs Immat Gran (auto) 0.08 H (0.00-0.03) X10*3/uL Absolute Neuts (auto) 11.1 H (2.0-8.3) x10*3/uL Absolute Nucleated RBC 0.000 (0.0-0.012) X10*3/uL Nucleated RBC % (auto) 0.0 (0.0-0.2) /100WBC VBG pH 7.53 H (7.32-7.43) VBG pCO2 52 mmHg VBG pO2 114 mmHg VBG HCO3 43 H (22-26) mmol/L VBG O2 Saturation 99.0 % VBG Base Excess 18.3 mmol/L Sodium 138 (135-145) mmol/L Potassium 3.5 (3.3-5.1) mmol/L Chloride 87 L (96-108) mmol/L Carbon Dioxide 38 H (22-29) mmol/L Anion Gap 17 (12-20) BUN 9 (9-16) mg/dL Creatinine 0.79 (0.5-1.4) mg/dL Estim Creat Clear Calc 96.9 Estimated GFR > 60 Random Glucose 104 (60-115) mg/dL Calcium 9.4 D (8.4-10.2) mg/dL Magnesium 1.4 L* (1.6-2.6) mg/dL Total Bilirubin 0.4 (0.0-1.0) mg/dL AST 46 H (5-37) U/L ALT 23 (0-40) U/L Alkaline Phosphatase 124 H (39-117) U/L Troponin I High Sens 15.5 D (<3.5-35.0) ng/L B-Natriuretic Peptide 44 (<100) pg/mL Total Protein 6.5 (6.5-8.0) g/dL Albumin 3.7 (3.5-5.0) g/dL Ethyl Alcohol 70 mg/dL Influenza Type A (PCR) NEGATIVE (Negative) Influenza Type B (PCR) NEGATIVE (Negative) RSV RNA Qual (PCR) NEGATIVE (Negative) SARS-CoV-2 RNA (RT-PCR) NEGATIVE (Negative) Independent Interpretation I performed an independent interpretation of an: EKG Interpretation: Sinus tachycardia with premature atrial complexes ventricular rate [address]-T changes no acute ischemia Discharge Plan Discharge Clinical Impression: COPD (chronic obstructive pulmonary disease), Atrial fibrillation with RVR Patient Disposition: Admitted As Inpatient
[2025-05-07 17:35] LABS: Resp Syncy Virus RNA Qual PCR NEGATIVE (Negative); SARS COV2 PCR INHOUSE NEGATIVE (Negative)
--- OUTSIDE RECORDS SUMMARY | 2025-05-07 18:22 | XMS_ITS | Clinical Summary ---
Author Organization [facility] Facility Address [address] [place] [id number] Care Team Providers Care Metal Work Duct Installer Name Role Phone Unavailable Primary Care Provider [...] or PCV21) 05/03/2024 05/03/2019, 04/16/2018 Influenza Vaccine (#1) 2025 Hepatitis B Vaccine Aged Out No longe r eligible based on patient's age to complete this topic Insurance [facility] Regions 1,2,3 (VACCN) [facility] Regions 1,2,3 (VACCN)
--- OUTSIDE RECORDS SUMMARY | 2025-05-07 18:22 | XMS_ITS | Encounter Summary ---
Author Organization [facility] Address [address] [place] [id number] Phone Care Team Providers Care Wick And Base Assembler Name Role Phone Artie Lentz NP Primary Care Provide r Reason for Visit * Reason Onset Date Comments Atrial Fibrillation 03/29/2025 Encounter Details Date Type Department Care Team (Late st Contact Info) Description 03/29/2025 Telephone [facility] [address] [facility] 3rd Floor, [address] [place] [address] Sherwin Canada DO [address] [facility] [address] [place] [id number] [email or web address] Atrial Fibrillation Social History Tobacco Use Types Packs/Day Years Used Date Smoking Tobacco: Some Days Cigarettes Smokeless Tobacco: Never Alcohol Use Standard Drinks/Week Comments Yes 0 (1 standard drink = 0.6 oz pur e alcohol) Daily Education Answer Date Recorded Are you interested in more education? Not on karan e 01/20/2025 Are you concerned about learning? Not on file 01/20/2025 No 01/20/2025 No 01/20/2025 Food Answer Date Recorded Within the past 6 months we worried whether our food would run out before we got money to buy more. Never True 01/20/2025 Within the past 6 months the food we bought just didn't last and we didn't have enough money to get more. Never True Residential Stability Answer Date Recor ded What is your housing situation today? I have lena sing 01/20/2025 How many times have you move d in the past 12 months? Zero (I did not move) 01/20/2025 Paying for Meds Answer Date Recorded Do you have trouble paying for medicines? No 01/20/2025 Paying Utility Bills Answer Date Record ed Do you have trouble paying your heating or elect ricity bill? No 01/20/2025 Transportation Answer Date Recorded Has the lack of transportati on kept you from medical appointments or from getting medications? No 01/20/2025 Digital Access Answer Date Recorded No 01/20/2025 Yes 01/20/2025 Do you have reliable internet access at home? Ye s 01/20/2025 Do you have a device (e.g., phone, tablet, computer) with a working camera? Yes 01/20/2025 Intimate Partner Violence Answer Date R ecorded Are you denied basic needs s uch as food, clothing, or medical care? No 01/20/2025 In the past 12 months have y ou been in a relationship with a person who hurts, threatens, or tries to control you? No 01/20/2025 Are you denied basic needs s uch as food, clothing, or medical care? No 01/20/2025 In the past 12 months have y ou been in a relationship with a person who hurts, threatens, or tries to control you? No 01/20/2025 Sex and Gender Information Value Date Recorded Sex Assigned at Not on file Legal Sex Male 9:22 AM EDT Gender Identity Not on file Sexual Orientation Not on file documented as of this encounter Progress Notes * Amber Helms RN - 03/29/2025 12:36 PM EDT Received notification from [employer] 7 day monitor reporting atrial fibrillation occurring duringbaseline/hookup on 03/29/25 at 8:40 AM, rate [address] Canada on 03/15, where his Diltiazem was doubled from 180mg QD to 360 mg QD. He is also on Eliquis documented in this encounter Plan of Treatment Upcoming Encounters Date Type Department Care Team (Late st Contact Info) Description 08/22/2025 7:45 AM EST Office Visit [facility] [address] [facility] 3rd Floor, [address] [place] [address] Sherwin Canada, [address] [facility] [address] [place] [address] [email or web address] documented as of this encounter Visit Diagnoses Not on filedocumented in this encounter Care Teams Wick And Base Assembler Relationship Specialty Start Date End Date Artie Lentz NP [address] [place] [address] PCP - General Nurse Practitioner 01/20/25 documented as of this encounter Additional Source Comments The information contained in this document represents components of the legal health record. It is not the complete legal health record.[facility]
--- NOTE | 2025-05-07 19:20 | PC.NURSE ---
Respiratory contacted for breathing treatment
[2025-05-07] MEDS: Furosemide 20 MG/2 ML VIAL IVPUSH (19:32)
[2025-05-07] MEDS: Albuterol Sulfate 5 MG, Albuterol/Iprat 2.5/0.5MG 3 ML 3 ML INHALE (19:45)
[2025-05-07 19:53] LABS: Venous Blood Gas Refer to POC result
[2025-05-07 19:53] LABS: VBG HCO3 43 mmol/L (22-26); VBG O2 % Saturation 99.0 %
--- NOTE | 2025-05-07 21:06 | PC.NURSE ---
Pt experienced 2 episodes of tachycardia up to 160s, associated w/dizziness. MD aware and brought to bedside. Pt currently in afib between 110s-120s. Pt denies chest pain, denies an increase in SOB. Awaiting further orders.
--- NOTE | 2025-05-07 23:52 | PC.NURSE ---
assumed care of pt @2300, pt A+Ox3, on 5L oxymask SPO2 currently at 93%, upon ausultation lungs sound relatively clear with intermittent grunting noted throughout, episode of tachycardia w/ no symptoms at this time, pt laying on left stated that it is the most comfortable in this position
--- NOTE | 2025-05-07 23:59 | PM.IMHP ---
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 Visual reports this for the past 3-4 days. Initially he was found to be saturating at 75% on room air, escalated to a non-rebreather than OxyMask with improvement. The patient reports wheezing, fever, chills and recent sick contacts. He has had bilateral pedal edema and takes Lasix daily for this. He denies any nausea, vomiting, abdominal pain or urinary symptoms. Of note the triage note mentions that the patient came in for back pain. The patient states this is untrue and he did not come in for back pain but did develop back pain after spending a long period of time on the stretcher in the ED. Review of Systems Constitutional: Constitutional: Denies body ache(s), Reports chills, Denies fatigue, Reports fever(s) and Denies headache(s) Eyes: Eyes: Denies change in vision ENT: Denies headache(s), Reports nasal congestion and Denies sore throat Cardiovascular: Cardiovascular: Denies chest pain, Reports rapid heart rate, Reports leg edema, Denies lightheadedness and Reports dyspnea Respiratory: Respiratory: Reports chest congestion, Reports cough, Reports dyspnea and Reports wheezing Gastrointestinal: Gastrointestinal: Denies abdominal pain, Denies diarrhea, Denies nausea and Denies vomiting Genitourinary: Genitourinary: Denies dysuria, Denies urinary frequency and Denies urinary urgency Musculoskeletal: Musculoskeletal: Reports back pain and Denies myalgias Integumentary/Breasts: Skin/Breast: Denies rash Neurologic: Denies confusion and Denies headache(s) Psychiatric: Psychiatric: Denies confusion Endocrine: Endocrine: Denies fatigue Hematologic/Lymphatic: Hematologic/Lymphatic: Denies easy bleeding and Denies easy bruising Allergic/Immunologic: Allergic/Immunologic: Reports wheezing [facility] Medical History Alcohol use Pulmonary nodules Supplemental oxygen dependent Atrial fibrillation with RVR Hypothyroid COPD (chronic obstructive pulmonary disease) Social History Household Members: Family Housing: House Do you presently have visiting nurse or other home services: No Alcohol intake: current Comment: Reports 1.75 L hard liquor over a 4 day period daily Patient Tobacco Use Status: Former Tobacco user Tobacco use type: Cigarette Years Smoked: started at age 12, 2-3 PPD, quit 10/16/2024 Smoked in Last 30 Days: Yes Use of substances other than those prescribed or required for medical reasons: No Advance Directives: No Advance Directives Information Provided: No service: Yes Narrative: smokes 6-10 cigarettes/day. 1 pint liquor/day. no drug use Meds Allergies Allergy/AdvReac Type Severity Reaction Status Date / Time hydrochlorothiazide AdvReac Severe Rash Verified 05/07/25 16:40 Home Medications ?Medication ?Instructions ?Recorded ?Confirmed ?Last Taken ?Type atorvastatin 40 mg tablet 40 mg PO DAILY 10/18/24 02/15/25 02/14/25 History cholecalciferol (vitamin D3) 25 25 mcg PO DAILY 10/18/24 02/15/25 02/14/25 History mcg (1,000 unit) tablet fluticasone 250 mcg-salmeterol 50 1 inh inhalation BID 10/18/24 02/15/25 02/14/25 History mcg/dose blistr powdr for inhalation tiotropium bromide 2.5 2 puff inhalation DAILY 10/18/24 02/15/25 02/14/25 History mcg/actuation mist for inhalation Physical Exam Vital Signs and Narrative: Vital Signs: Last Vital Signs Temp 97.7 F 05/07/25 16:34 Pulse 106 H 05/07/25 22:13 Resp 16 05/07/25 22:13 BP 136/72 05/07/25 22:13 Pulse Ox 97 05/07/25 22:13 O2 Del Method Oxymask 05/07/25 22:13 O2 Flow Rate 5 05/07/25 22:13 BMI result Body Mass Index 30.5 General: AOx3, no acute distress Resp: dminished throughout, no active wheezing or crackles CVS: tachy, normal rhythm GI: +BS, NT, distended (chronic per pt) Skin: Warm, dry Neuro: Cranial nerves II-XII grossly intact bilaterally. Motor grossly intact bilaterally Extremities: 3+ pitting edema BLE Psych: Appropriate affect Const: General: No confusion Orientation/consciousness: No confusion Neuro: General: No confusion Results Labs 05/07/25 16:52 05/07/25 16:52 Labs: Laboratory Results - last 24 hr 05/07/25 05/07/25 16:52 19:49 MCV 91.6 MCH 30.9 MCHC 33.7 RDW 13.2 Plt Count 242 MPV 10.5 Immature Gran % (Auto) 0.6 H Neut % (Auto) 80.5 H Lymph % (Auto) 9.8 L [place] % (Auto) 8.2 Eos % (Auto) 0.8 Baso % (Auto) 0.1 Lymph # (Auto) 1.3 [place] # (Auto) 1.1 Eos # (Auto) 0.1 Baso # (Auto) 0.0 Abs Immat Gran (auto) 0.08 H Absolute Neuts (auto) 11.1 H Absolute Nucleated RBC 0.000 Nucleated RBC % (auto) 0.0 VBG pH 7.53 H VBG pCO2 52 VBG pO2 114 VBG HCO3 43 H VBG O2 Saturation 99.0 VBG Base Excess 18.3 Anion Gap 17 Estim Creat Clear Calc 96.9 Estimated GFR > 60 Random Glucose 104 Calcium 9.4 D Total Bilirubin 0.4 AST 46 H ALT 23 Alkaline Phosphatase 124 H B-Natriuretic Peptide 44 Total Protein 6.5 Albumin 3.7 Ethyl Alcohol 70 Influenza Type A (PCR) NEGATIVE Influenza Type B (PCR) NEGATIVE RSV RNA Qual (PCR) NEGATIVE SARS-CoV-2 RNA (RT-PCR) NEGATIVE Assessment and Plan (1) Acute on chronic respiratory failure with hypoxia and hypercapnia: Status: Acute (2) Sepsis: Status: Acute (3) Chronic obstructive pulmonary disease with (acute) exacerbation: Status: Acute (4) Acute CHF: Status: Acute (5) Tobacco use disorder: Status: Acute (6) Alcohol use disorder: Status: Acute Plan Pt is a 69 yo male with a pmhx signficant for 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 Of note the triage note mentions that the patient came in for back pain. The patient states this is untrue and he did not come in for back pain but did develop back pain after spending a long period of time on the stretcher in the ED. Acute on chronic respiratory failure with hypoxia and hypercapnia, sepsis, acute COPD exacerbation/bronchitis - WBC 13.7, tachycardic and tachypneic, febrile at 100.8 rectally, lactic acid normal, blood cultures x2 pending, not severe sepsis - chest x-ray negative for acute findings - BNP 44 - COVID/flu/RSV negative - EKG with sinus tachycardia and PVCs - troponin negative - chest CTA to rule out PE pending - VBG initially with pH of 7.53, improved to 7.40 however PCO2 now 80 from 52. HCO3 49 from 43. - BMP with bicarb of 38 and chloride 87, near baseline - patient given ceftriaxone in ED, switch to doxycycline b.i.d. for COPD exacerbation/bronchitis - levalbuterol/ipratropium Q4H while awake - solumedrol 60mg TID - will need bipap based on VBG, RT alerted - monitor CBC and BMP ? CHF, no official dx - pt takes lasix 40mg daily, has 3-4+ pitting edema - BNP 44 - no pulmonary edema on CXR - given additional 20mg IV in ED - continue home lasix - echo sinus tachycardia -- likely triggered from COPD exacerbation and albuterol use - responsive to diltiazem 10mg IV - monitor on tele hypomagnesemia - mag 1.4 - 2mg IV mag alcohol use disorder - no hx etoh withdrawal - monitor CIWA - not showing signs of withdrawal at this time tobacco use disorder - declines nicotine replacement - smoking cessation encouraged - RT smoking cessation consult hypothyroid - continue levothyroxine paroxysmal a fib - EKG with sinus tachycardia, responsive to IV diltiazem 10mg - monitor on tele - continue xaretlo and home meds class 1 obesity - BMI 30.5 - weight loss encouraged med rec pending DNR/DNI VTE prophy: xarelto Patient with acute on chronic respiratory failure with hypoxia and hypercapnia, sepsis and acute COPD exacerbation, requiring admission for at least 2 midnights stay for supplemental oxygen, IV steroids, breathing treatments and antibiotics. Quality Stroke Does the patient have a stroke diagnosis?: No VTE Prior VTE?: No VTE Risk Level:: Medical - moderate - high VTE Device Contraindication: Treatment Not Indicated VTE Drug Contraindication: N/A - Med Ordered
[2025-05-08] VITALS (14 sets, daily range): BP systolic 115–136; BP diastolic 59–88; PULSE 98–112; RESP 18–93; TEMP 36.2–36.8; O2SAT 24–94; BMI 28.5
--- NOTE | 2025-05-08 00:59 | PC.NURSE ---
20g IV placed in left AC
[2025-05-08 01:07] LABS: Venous Blood Gas Refer to POC result
[2025-05-08 01:10] LABS: Magnesium 1.4 mg/dL (1.6-2.6)
[2025-05-08 01:11] LABS: VBG HCO3 49 mmol/L (22-26); VBG O2 % Saturation 83.0 %
[2025-05-08] MEDS: iohexoL 350 MG/ML 100 ML INFUS..BTL 75 ML IV (01:14)
[2025-05-08] MEDS: Magnesium Sulfate/H2O 2 GM/50 ML PIGGYBACK IV (01:48)
--- NOTE | 2025-05-08 01:54 | PC.NURSE ---
pt medicated per DEC, provider Shaila Mcgregor ordered BIPAP d/t vbg results, respiratory at the bedside
--- NOTE | 2025-05-08 02:46 | PC.NURSE ---
pt placed on BIPAP by respiratory, pt not tolerating well stating my mouth is dry pt taken off of BIPAP and placed back on oxymask 5L, provider Kiera Mcgregor made aware
--- NOTE | 2025-05-08 03:22 | PC.NURSE ---
provider Kiera Mcgregor replied to message pertaining to pt not tolerating BIPAP, provider said to attempt hiflow instead, respiratory notified
--- NOTE | 2025-05-08 03:35 | PC.NURSE ---
respiratory contacted to place pt on Hiflow per provider orders, pt lowered to 3L via oxymask to maintain SPO02 within parameters of 88-91%
--- NOTE | 2025-05-08 03:57 | PM.EVENT ---
Event Note Date of Service: 05/08/25 Event Note: Checked in on pt. reports that he could not tolerate BiPAP and took it off. oxygen was in low 80s with BiPAP, now 92% with oxymask. pt requesting breathing tx. nurse will alert RT and ask for pt to be placed on high flow O2. Time Spent With Patient Time: Total time managing care of this patient today ____ minutes.
--- NOTE | 2025-05-08 04:16 | PC.NURSE ---
pt placed on Hiflow by respiratory, currently tolerating well
[2025-05-08] MEDS: levalbuterol HCL 1.25 MG, Ipratropium Bromide 0.5 MG INHALE ×4 (04:18→19:39)
[2025-05-08 04:34] LABS: Hematocrit 36.2 % (42.0-52.0); Hemoglobin 12.2 g/dl (14.0-18.0); Imm Gran Abs Auto 0.04 X10*3/uL (0.00-0.03); Imm Gran Pct Auto 0.4 % (0.0-0.4); Lymphocytes Absolute Auto 0.3 X10*3/uL (1.2-4.9); MANUAL DIFF FLAG SCAN; Mean Corpuscular HGB Conc 33.7 g/dl (31.0-36.0); Mean Corpuscular Hemoglobin 30.4 pg (27.0-33.0); Mean Corpuscular Volume 90.3 fL (80.0-98.0); NRBC Abs Auto 0.000 X10*3/uL (0.0-0.012); NRBC Pct Auto 0.0 /100WBC (0.0-0.2); Platelet Count 235 X10*3/uL (160-400); Red Blood Count 4.01 X10*6/uL (4.60-5.80); SCAN SMEAR FLAG 1; White Blood Count 10.0 X10*3/uL (4.8-10.8)
[2025-05-08 04:47] LABS: Anion Gap 18 (12-20); Blood Urea Nitrogen 11 mg/dL (9-16); Calcium 9.8 mg/dL (8.4-10.2); Carbon Dioxide 36 mmol/L (22-29); Chloride 88 mmol/L (96-108); Creatinine Clr Calc Pharmacy 98.1; Estimated Glomerular Filt Rate > 60; Potassium 3.6 mmol/L (3.3-5.1); Sodium 138 mmol/L (135-145)
--- NOTE | 2025-05-08 04:53 | PC.NURSE ---
pt SPO2 dropped to 84% on hiflow, NC adjusted and pt SPO2 increased to 87%, respiratory called and at bedside, currently pt between 88-89% on hiflow, pt laying on left side for comfort
[2025-05-08] MEDS: oxyCODONE HCl Immed Release 5 MG TABLET PO ×3 (05:00→19:37)
--- NOTE | 2025-05-08 05:00 | PC.NURSE ---
provider Shaila Mcgregor made aware of pt tolerance to hiflow, overall pt tolerating well, other than small desat episode down to 84%, NC was adjusted and SPO2 increased to 87% then between 88-92% consistently. Provider messaged @[phone], replied @[phone], no new orders at this time
[2025-05-08] MEDS: 0.9 % Sodium Chloride Flush 3 ML SYRINGE IVFLUSH ×3 (08:21→22:06)
--- NOTE | 2025-05-08 10:40 | PHA.MEDREC ---
Pharmacy Consult ? Medication Reconciliation Pharmacy has completed the medication reconciliation, spoke to patient at bedside who confirmed medications - also [facility]
--- NOTE | 2025-05-08 10:42 | MHC.CM.PN ---
Patient lives in a home w/ his sister. Functionally independent at baseline. Uses 3L home O2, but cannot recall name of supplier. PCP is Artie Lentz [facility]MONGERY WORKER [facility]. Patient believes he is service connected, but isn't sure of the percentage. LM for Mi @ [facility] to confirm. He does not think he has Medicare. HCP on file and verified. HCA is patient's sister, Della. DP: Patient's goal is home, but feels he will need VNA and more help around the house. Awaiting call back from [facility] to confirm coverage. Referrals sent to [facility]. Sister will transport home. CM will continue to follow.
[2025-05-08 14:41] LABS: Chlamydia pneumoniae PCR Not Detected (Not Detect.); Coronavirus 229E PCR Not Detected (Not Detect.); Coronavirus HKU1 PCR Not Detected (Not Detect.); Coronavirus NL63 PCR Not Detected (Not Detect.); Coronavirus OC43 PCR Not Detected (Not Detect.); RSV PCR Not Detected (Not Detect.); Rhino/Enterovirus PCR Not Detected (Not Detect.)
[2025-05-08 14:50] LABS: Influenza A H1 PCR Not Detected (Not Detect.); Influenza A H1-2009 PCR Not Detected (Not Detect.); Influenza A H3 PCR Not Detected (Not Detect.); SARS-CoV-2 PCR Not Detected (Not Detect.)
[2025-05-08 14:57] LABS: Procalcitonin 4.03 ng/mL
--- NOTE | 2025-05-08 21:15 | P.PNIM_ITS ---
Subjective Subjective Date of Service: 05/08/25 Interval History: Continues with high flow SOB and cough persist No significant withdrawal symptoms States drinks 1+ pints daily, no history of withdrawal Review of Systems No CP or pressure No N/V/D or abd pain Physical Exam 2 Exam: Exam: General: AOx3, no acute distress Resp: Diffuse coarse breath sounds bilaterally CVS: S1, S2, RRR GI: +BS, NT, no distention Skin: Warm, dry Neuro: Cranial nerves II-XII grossly intact bilaterally. Motor grossly intact bilaterally. No upper extremity tremors Extremities: No edema Psych: Appropriate affect Vital Signs: Vital Signs: Last Vital Signs Temp 97.1 F 05/08/25 19:56 Pulse 102 H 05/08/25 19:56 Resp 18 05/08/25 19:56 BP 136/80 05/08/25 19:56 Pulse Ox 92 05/08/25 19:56 O2 Del Method High Flow Nasal C annula 05/08/25 19:56 O2 Flow Rate 40 05/08/25 19:56 FiO2 39 05/08/25 15:53 BMI result Body Mass Index 28.5 Objective Data Active Medications Acetaminophen (Acetaminophen 325 Mg Tablet) 975 mg PO Q6H PRN PRN Reason: Pain, Mild 1-3,fever,headache Albuterol/Ipratropium (Albuterol/Iprat 2.5/0.5mg 3 Ml Ampul.Neb) 3 ml INHALE RQ4H WHILE AWAKE PRN PRN Reason: Shortness of Breath/Wheezing Calcium Carbonate (Calcium Carbonate 750 Mg Tab.Chew) 750 mg PO Q4H PRN PRN Reason: Heartburn Levalbuterol HCl 1.25 mg/ (Ipratropium [place] 0.5 mg) 0 mg INHALE RQ4H WHILE AWAKE [facility] Last Admin: 05/08/25 19:39 Dose: 1 dose Documented By: KAREN Doxycycline Hyclate 100 mg/ (Sodium Chloride) 250 mls @ 166.67 mls/hr IV BID [facility] Last Infusion: 05/08/25 09:51 Dose: Infused Documented By: MAURO Magnesium Hydroxide (Milk Of Magnesia 30 Ml Oral.Susp) 30 ml PO DAILY PRN PRN Reason: Constipation Melatonin (Melatonin 3 Mg Tablet) 6 mg PO BEDTIME PRN PRN Reason: Insomnia Last Admin: 05/08/25 01:41 Dose: 6 mg Documented By: REESE Methylprednisolone Sodium Succinate (Methylprednisolone Sod Succ 125 Mg/2 Ml Vial) 60 mg IVPUSH TID [facility] Last Admin: 05/08/25 14:22 Dose: 60 mg Documented By: ANDRES Ondansetron HCl (Ondansetron Hcl 4 Mg/2 Ml Vial) 4 mg IVPUSH Q8H PRN PRN Reason: Nausea and Vomiting Oxycodone HCl (Oxycodone Hcl Immed Release 5 Mg Tablet) 5 mg PO Q6H PRN PRN Reason: Pain, Severe (Pain Scale 7-10) Last Admin: 05/08/25 19:37 Dose: 5 mg Documented By: FERNANDO Comments: per MD Carolyn tobin to give earlier than Q6 this time Rivaroxaban (Rivaroxaban 20 Mg Tablet) 20 mg PO DAILY@1700 [facility] Last Admin: 05/08/25 16:21 Dose: 20 mg Documented By: ANDRES Sodium Chloride (0.9 % Sodium Chloride Flush 3 Ml Syringe) 3 ml IVFLUSH QSHIFT [facility] Last Admin: 05/08/25 14:22 Dose: 3 ml Documented By: ANDRES Tramadol HCl (Tramadol Hcl 50 Mg Tablet) 50 mg PO Q6H PRN PRN Reason: Pain, Moderate(Pain Scale 4-6) Last Admin: 05/08/25 09:44 Dose: 50 mg Documented By: AMURO Labs 05/08/25 04:28 05/08/25 04:28 Labs: Laboratory Results - last 24 hr 05/07/25 05/08/25 05/08/25 16:52 01:06 04:28 MCV 90.3 MCH 30.4 MCHC 33.7 RDW 13.2 Plt Count 235 MPV 10.6 Immature Gran % (Auto) 0.4 Neut % (Auto) 93.9 H Lymph % (Auto) 3.3 L [place] % (Auto) 1.8 L Eos % (Auto) 0.3 Baso % (Auto) 0.3 Lymph # (Auto) 0.3 L [place] # (Auto) 0.2 Eos # (Auto) 0.0 Baso # (Auto) 0.0 Abs Immat Gran (auto) 0.04 H Absolute Neuts (auto) 9.4 H Absolute Nucleated RBC 0.000 Nucleated RBC % (auto) 0.0 Smear Tech's Comments VERIFIED VBG pH 7.40 VBG pCO2 80 VBG pO2 55 VBG HCO3 49 H VBG O2 Saturation 83.0 VBG Base Excess 20.5 Anion Gap 18 Estim Creat Clear Calc 98.1 Estimated GFR > 60 Random Glucose 128 H Calcium 9.8 Magnesium 1.4 L* Procalcitonin 4.03 Respiratory Panel Rodriguez Adenovirus (Rapid PCR) B.pert (TEM-PCR) B.parapertussis DNA PCR C. pneumoniae DNA (PCR) Coronavirus OC43 (PCR) Coronavirus HKU1 (PCR) Coronavirus 229E (PCR) Coronavirus NL63 (PCR) Human Metapneumovir PCR Influenza A (RT-PCR) Influenza A (H1) PCR Influ A () PCR Influenza A (H3) PCR Influenza B (RT-PCR) M. pneumoniae (PCR) Parainfluenza 1 (PCR) Parainfluenza 2 (PCR) Parainfluenza 3 (PCR) Parainfluenza 4 (PCR) RSV (PCR) Entero/Rhino (PCR) SARS-CoV-2 RNA (RT-PCR) 05/08/25 09:35 MCV MCH MCHC RDW Plt Count MPV Immature Gran % (Auto) Neut % (Auto) Lymph % (Auto) [place] % (Auto) Eos % (Auto) Baso % (Auto) Lymph # (Auto) [place] # (Auto) Eos # (Auto) Baso # (Auto) Abs Immat Gran (auto) Absolute Neuts (auto) Absolute Nucleated RBC Nucleated RBC % (auto) Smear Tech's Comments VBG pH VBG pCO2 VBG pO2 VBG HCO3 VBG O2 Saturation VBG Base Excess Anion Gap Estim Creat Clear Calc Estimated GFR Random Glucose Calcium Magnesium Procalcitonin Respiratory Panel Rodriguez See Note Adenovirus (Rapid PCR) Not Detected B.pert (TEM-PCR) Not Detected B.parapertussis DNA PCR Not Detected C. pneumoniae DNA (PCR) Not Detected Coronavirus OC43 (PCR) Not Detected Coronavirus HKU1 (PCR) Not Detected Coronavirus 229E (PCR) Not Detected Coronavirus NL63 (PCR) Not Detected Human Metapneumovir PCR Not Detected Influenza A (RT-PCR) Not Detected Influenza A (H1) PCR Not Detected Influ A (H1/09) PCR Not Detected Influenza A (H3) PCR Not Detected Influenza B (RT-PCR) Not Detected M. 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 Of note the triage note mentions that the patient came in for back pain. The patient states this is untrue and he did not come in for back pain but did develop back pain after spending a long period of time on the stretcher in the ED. Acute on chronic respiratory failure with hypoxia and hypercapnia, sepsis, acute COPD exacerbation and underlying pneumonia - WBC 13.7, tachycardic and tachypneic, febrile at 100.8 rectally, lactic acid normal, blood cultures x2 pending, not severe sepsis - CXR negative; CTA negative for PE; possible infiltrates in right middle lobe; procalcitonin 4.03 - COVID/flu/RSV negative; respiratory panel negative - VBG initially with pH of 7.53, improved to 7.40 however PCO2 now 80 from 52. HCO3 49 from 43. - BMP with bicarb of 38 and chloride 87, near baseline - will treat with ceftriaxone and doxycycline, day 2 - levalbuterol/ipratropium Q4H while awake and prn - solumedrol 60mg TID - unable to tolerate bipap, now on high-flow - monitor CBC and BMP ? CHF, no official dx - pt takes lasix 40mg daily, has 2+ bilateral pitting edema - BNP 44 - no pulmonary edema on CXR - given additional 20mg IV in ED - continue home lasix - echo sinus tachycardia -- likely triggered from COPD exacerbation and albuterol use - responsive to diltiazem 10mg IV - monitor on tele hypomagnesemia - mag 1.4 - 2mg IV mag alcohol use disorder - no hx etoh withdrawal - monitor CIWA - not showing signs of withdrawal at this time tobacco use disorder - declines nicotine replacement - smoking cessation encouraged - RT smoking cessation consult hypothyroid - continue levothyroxine paroxysmal a fib - EKG with sinus tachycardia, responsive to IV diltiazem 10mg - monitor on tele - continue xaretlo and home meds class 1 obesity - BMI 30.5 - weight loss encouraged DNR/DNI VTE prophy: xarelto Patient with acute on chronic respiratory failure with hypoxia and hypercapnia, sepsis and acute COPD exacerbation, requiring admission for at least 2 midnights stay for supplemental oxygen, IV steroids, breathing treatments and antibiotics. Quality Stroke Does the patient have a stroke diagnosis?: No VTE Prior VTE?: No VTE Risk Level:: Medical - moderate - high VTE Device Contraindication: Treatment Not Indicated VTE Drug Contraindication: N/A - Med Ordered
[2025-05-09] VITALS (16 sets, daily range): BP systolic 116–171; BP diastolic 58–81; PULSE 72–110; RESP 17–22; TEMP 36.2–36.7; O2SAT 90–96
[2025-05-09] MEDS: Albuterol/Iprat 2.5/0.5MG 3 ML AMPUL.NEB INHALE (03:34)
--- NOTE | 2025-05-09 07:00 | CA_ITS ---
Transthoracic Echocardiogram Patient (Last, First, Middle): Dickson Em J Gender: Male Date of : 1955 Age: 69 Procedure Date: 05/09/2025 Procedure Type: Transthoracic E[place]ocardi[place] [facility] [place]: 175.26 cm Weight: 87.09 kg BSA: 2.03 m2 Heart Rate: bpm BP: 119 / 58 mmHg Program Associate: SB Referring MD: Shaila Mcgregor PA-C Symptoms: significant pedal edema, no CHF dx Study Quality: Adequate w contrast ECG Rhythm: Sinus Conclusions: - The left ventricular systolic function is normal. The calculated ejection fraction is 68% by biplane method. - No obvious valvular pathology seen on this study. - There is moderate dilatation of the ascending aorta measuring 4.50 cm. - The inferior vena cava is dilated. Findings Procedure Information Contrast agent, definity, is being given per protocol without apparent complications. Left Ventricle Normal left ventricular cavity size. There is normal left ventricular wall thickness. The left ventricular systolic function is normal. The calculated ejection fraction is 68% by biplane method. There is no evidence of regional wall motion abnormalities. Diastolic function is normal for age. Right Ventricle Mildly increased right ventricular cavity size. There is normal right ventricular systolic function. Atria Both atria are normal in size. Aortic Valve There is a normal trileaflet aortic valve. There is mild calcification of the aortic valve. There is no aortic valve stenosis. There is trace (trivial) aortic valve regurgitation. Mitral Valve The mitral valve appears normal. There is trace mitral valve regurgitation. There is no mitral valve stenosis. Pulmonic Valve The pulmonic valve is likely normal. Tricuspid Valve Normal tricuspid valve structure. There is trace tricuspid valve regurgitation. Mild pulmonary hypertension is present. Great Vessels The aortic arch is normal in size. There is moderate dilatation of the ascending aorta measuring 4.50 cm. Venous The inferior vena cava was not well visualized. The inferior vena cava is dilated. Pericardium/Pleural There is no evidence of pericardial effusion. Prior Study Comparison Changes noted compared to prior study dated: 11/19/2024. See comment on ascending aortic size and IVC. Recommendations, Care & Conclusions No obvious valvular pathology seen on this study. Measurements 2D Linear Measurements IVSd: 1.03 0.6-0.9/0.6-1.0 cm LVIDd: 5.28 3.9-5.3/4.2-5.9 cm LVIDd Index: 2.60 2.4-3.2/2.2-3.1 cm/m2 LVIDs: 3.55 2.0-3.6 cm LVPWd: 0.82 0.7-1.1 cm LA Diam: 4.20 2.7-3.8/3.0-4.0 cm LAIDs Index: 2.07 1.5-2.3 cm/m2 LV Mass: 223.40 67-162/88-224 g LV Mass Index: 110.05 43-95/49-115 g/m2 LVOT Diam: 2.20 3.0+(-)1.3 cm 2D Systolic Function EF 4C: 70.90 >55% EF 2C: 64.90 >55% EF BiP: 67.50 >55% Mitral Valve MV Pk E: 0.99 MV PK A: 0.93 MV Decel Time: 147.00 E/A: 1.10 E'Lateral: 8.59 E'Medial: 7.07 E/E' Med: 14.00 E/E' Lat: 11.50 PHT: 43.00 MVA PHT: 5.12 Decel [place]: 6.75 Aortic Valve AoV Pk Navid: 1.67 AoV Pk Grad: 11.00 MICA: 3.33 LVOT LVOT Pk Navid: 1.52 LVOT Mn Navid: 1.02 LVOT VTI: 0.28 LVOT Pk Grad: 9.00 LVOT Mn Grad: 5.00 LVOT Diam: 2.20 LVOT Area: 3.80 Diastolic Function MV Pk E: 0.99 MV Pk A: 0.93 E/A: 1.10 E'Medial: 7.07 E/E' Med: 14.00 E' Laterial: 8.59 E/E' Lat: 11.50 Right Ventricle TAPSE (mm): 17.80 TVS' Navid: 11.00 Tricuspid Valve TR Pk Navid: 2.64 TR Pk Grad: 28.00 RA Press: 15.00 RVSP: 43.00 Great Vessels Aorta Sinus of Valsalva: 3.60 2.0-3.5 cm Ao Asc: 4.50 2.1-3.4 cm Ao Arch: 3.10 Pulmonary Valve PV Pk Navid: 0.77 Peak PV Grad: 2.00 Updated in Other Vendor System with Status of Final Sal Poon MD electronically signed on 05/09/2025 12:06:30 PM with status of Final
[2025-05-09 07:53] LABS: Hematocrit 35.6 % (42.0-52.0); Hemoglobin 11.6 g/dl (14.0-18.0); Imm Gran Abs Auto 0.08 X10*3/uL (0.00-0.03); Imm Gran Pct Auto 0.6 % (0.0-0.4); Lymphocytes Absolute Auto 0.7 X10*3/uL (1.2-4.9); MANUAL DIFF FLAG SCAN; Mean Corpuscular HGB Conc 32.6 g/dl (31.0-36.0); Mean Corpuscular Hemoglobin 30.4 pg (27.0-33.0); Mean Corpuscular Volume 93.4 fL (80.0-98.0); NRBC Abs Auto 0.000 X10*3/uL (0.0-0.012); NRBC Pct Auto 0.0 /100WBC (0.0-0.2); Platelet Count 244 X10*3/uL (160-400); Red Blood Count 3.81 X10*6/uL (4.60-5.80); SCAN SMEAR FLAG 1; White Blood Count 13.1 X10*3/uL (4.8-10.8)
[2025-05-09] MEDS: levalbuterol HCL 1.25 MG, Ipratropium Bromide 0.5 MG INHALE ×4 (08:09→19:08)
[2025-05-09] MEDS: Tiotropium Bromide 2.5 mcg 1 PUFF/2.5 MCG MIST.INHAL 2 PUFF INHALE (08:09)
[2025-05-09 08:22] LABS: Anion Gap 15 (12-20); Blood Urea Nitrogen 20 mg/dL (9-16); Calcium 9.8 mg/dL (8.4-10.2); Carbon Dioxide 41 mmol/L (22-29); Chloride 88 mmol/L (96-108); Creatinine Clr Calc Pharmacy 89.3; Estimated Glomerular Filt Rate > 60; Magnesium 1.7 mg/dL (1.6-2.6); Potassium 3.9 mmol/L (3.3-5.1); Sodium 140 mmol/L (135-145)
[2025-05-09] MEDS: Theophylline Anhydrous ER 400 MG TAB.ER.24H PO (09:15)
[2025-05-09] MEDS: 0.9 % Sodium Chloride Flush 3 ML SYRINGE IVFLUSH ×3 (09:24→22:07)
--- NOTE | 2025-05-09 09:26 | MHC.CM.PN ---
EMR REVIEWED, PT HYPOXIA/SOB, PT NOW ON HIGH FLOW O2, [facility] TO [facility]MINE IF [facility] CONNECT[facility] AND SPOKE W/CONNOR WHO REPORTS PT IS MINIMALLY CONNECTED HOWEVER THEY WOULD COVER VNA AND HOME HEALTH IF PT NEEDS ON DC, CM TO FAX HCP AND REQUEST FOR [facility]NA/HOME HEALTH, PT MAY NEED TO SEE HIS PCP PRIMARY TO HOME HEALTH AID DEPENDING ON HOW PT IS ON DC, [facility]IAL [facility]FERR[facility] TO [facility] AT [phone]. CM WILL CONT TO FOLLOW DC NEEDS.
[2025-05-09 10:03] LABS: VBG HCO3 51 mmol/L (22-26); VBG O2 % Saturation 53.0 %
[2025-05-09 10:03] LABS: Venous Blood Gas Refer to POC result
--- NOTE | 2025-05-09 19:17 | P.PNIM_ITS ---
Subjective Subjective Date of Service: 05/09/25 Interval History: Not much improvement in SOB Cough improved some Has had edema with the past 2 weeks, it ?comes and goes? Denies chest pain or pressure No fever or chills Review of Systems Review of Systems: Yes all other systems are reviewed and are negative Physical Exam 2 Exam: Exam: General: AOx3, no acute distress Resp: Expiratory wheezing bilaterally. Wearing high-flow CVS: S1, S2, RRR GI: +BS, NT, no distention Skin: Warm, dry Neuro: Cranial nerves II-XII grossly intact bilaterally. Motor grossly intact bilaterally Extremities: 2+ bilateral pitting edema Psych: Appropriate affect Vital Signs: Vital Signs: Last Vital Signs Temp 97.4 F 05/09/25 15:23 Pulse 97 05/09/25 19:09 Resp 18 05/09/25 19:09 BP 133/64 05/09/25 15:23 Pulse Ox 92 05/09/25 15:23 O2 Del Method High Flow Nasal C annula 05/09/25 15:23 O2 Flow Rate 6 05/09/25 15:23 FiO2 40 05/09/25 15:23 BMI result Body Mass Index 28.5 Objective Data Active Medications Acetaminophen (Acetaminophen 325 Mg Tablet) 975 mg PO Q6H PRN PRN Reason: Pain, Mild 1-3,fever,headache Albuterol/Ipratropium (Albuterol/Iprat 2.5/0.5mg 3 Ml Ampul.Neb) 3 ml INHALE RQ4H WHILE AWAKE PRN PRN Reason: Shortness of Breath/Wheezing Last Admin: 05/09/25 03:34 Dose: 3 ml Documented By: NAJMA Atorvastatin Calcium (Atorvastatin Calcium 20 Mg Tablet) 20 mg PO DAILY [facility] [place] Last Admin: 05/09/25 09:15 Dose: 20 mg Documented By: BRODarwin Calcium Carbonate (Calcium Carbonate 750 Mg Tab.Chew) 750 mg PO Q4H PRN PRN Reason: Heartburn Ceftriaxone Sodium (Ceftriaxone Sodium 1 Gm Vial) 1 gm IVPUSH Q24H [facility] [place] Last Admin: 05/08/25 22:06 Dose: 1 gm Documented By: FERNANDO Levalbuterol HCl 1.25 mg/ (Ipratropium [place] 0.5 mg) 0 mg INHALE RQ4H WHILE AWAKE [facility] [place] Last Admin: 05/09/25 19:08 Dose: 1 dose Documented By: NAJMA Furosemide (Furosemide 40 Mg Tablet) 40 mg PO DAILY [facility] [place]; Protocol Last Admin: 05/09/25 09:15 Dose: 40 mg Documented By: GLORIA Doxycycline Hyclate 100 mg/ (Sodium Chloride) 250 mls @ 166.67 mls/hr IV BID [facility] [place] Last Infusion: 05/09/25 11:02 Dose: Infused Documented By: GLORIA Levothyroxine Sodium (Levothyroxine Sodium 88 Mcg Tablet) 88 mcg PO DAILY@0600 [facility] [place] Last Admin: 05/09/25 05:13 Dose: 88 mcg Documented By: WALDO Magnesium Hydroxide (Milk Of Magnesia 30 Ml Oral.Susp) 30 ml PO DAILY PRN PRN Reason: Constipation Melatonin (Melatonin 3 Mg Tablet) 6 mg PO BEDTIME PRN PRN Reason: Insomnia Last Admin: 05/08/25 01:41 Dose: 6 mg Documented By: REESE Methylprednisolone Sodium Succinate (Methylprednisolone Sod Succ 125 Mg/2 Ml Vial) 60 mg IVPUSH TID [facility] [place] Last Admin: 05/09/25 15:45 Dose: 60 mg Documented By: GLORIA Metoprolol Tartrate (Metoprolol Tartrate 50 Mg Tablet) 50 mg PO BID [facility] [place]; Protocol Last Admin: 05/09/25 09:16 Dose: 50 mg Documented By: GLORIA Ondansetron HCl (Ondansetron Hcl 4 Mg/2 Ml Vial) 4 mg IVPUSH Q8H PRN PRN Reason: Nausea and Vomiting Oxycodone HCl (Oxycodone Hcl Immed Release 5 Mg Tablet) 5 mg PO Q6H PRN PRN Reason: Pain, Severe (Pain Scale 7-10) Last Admin: 05/08/25 19:37 Dose: 5 mg Documented By: FERNANDO Comments: per MD Carolyn tobin to give earlier than Q6 this time Rivaroxaban (Rivaroxaban 20 Mg Tablet) 20 mg PO DAILY@1700 [facility] [place] Last Admin: 05/09/25 17:08 Dose: 20 mg Documented By: GLORIA Sodium Chloride (0.9 % Sodium Chloride Flush 3 Ml Syringe) 3 ml IVFLUSH QSHIFT [facility] [place] Last Admin: 05/09/25 15:47 Dose: 3 ml Documented By: GLORIA Theophylline (Theophylline Anhydrous Er 400 Mg Tab.Er.24h) 400 mg PO DAILY [facility] [place] Last Admin: 05/09/25 09:15 Dose: 400 mg Documented By: GLORIA Tiotropium [place] (Tiotropium [place] 2.5 Mcg 1 Puff/2.5 Mcg Mist.Inhal) 2 puff INHALE RDAILY [facility] [place] Last Admin: 05/09/25 08:09 Dose: 2 puff Documented By: RADHA Tramadol HCl (Tramadol Hcl 50 Mg Tablet) 50 mg PO Q6H PRN PRN Reason: Pain, Moderate(Pain Scale 4-6) Last Admin: 05/08/25 09:44 Dose: 50 mg Documented By: MAURO Vitamin D (Cholecalciferol (Vitamin D3) 25 Mcg Tablet) 25 mcg PO DAILY [facility] [place] Last Admin: 05/09/25 09:16 Dose: 25 mcg Documented By: GLORIA Labs 05/09/25 07:18 05/09/25 07:18 Labs: Laboratory Results - last 24 hr 05/09/25 05/09/25 07:18 09:57 MCV 93.4 MCH 30.4 MCHC 32.6 RDW 13.6 Plt Count 244 MPV 12.0 Immature Gran % (Auto) 0.6 H Neut % (Auto) 91.0 H Lymph % (Auto) 5.1 L [place] % (Auto) 3.1 Eos % (Auto) 0.0 Baso % (Auto) 0.2 Lymph # (Auto) 0.7 L [place] # (Auto) 0.4 Eos # (Auto) 0.0 Baso # (Auto) 0.0 Abs Immat Gran (auto) 0.08 H Absolute Neuts (auto) 11.9 H Absolute Nucleated RBC 0.000 Nucleated RBC % (auto) 0.0 Smear Tech's Comments VERIFIED VBG pH 7.49 H VBG pCO2 66 VBG pO2 37 VBG HCO3 51 H VBG O2 Saturation 53.0 VBG Base Excess 24.0 Anion Gap 15 Estim Creat Clear Calc 89.3 Estimated GFR > 60 Random Glucose 134 H Calcium 9.8 Magnesium 1.7 Assessment and Plan (1) Chronic obstructive pulmonary disease with (acute) exacerbation: Status: Acute Plan Pt is a 69 yo male with a pmhx signficant for 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 Of note the triage note mentions that the patient came in for back pain. The patient states this is untrue and he did not come in for back pain but did develop back pain after spending a long period of time on the stretcher in the ED. Acute on chronic respiratory failure with hypoxia and hypercapnia, sepsis, acute COPD exacerbation and underlying pneumonia - WBC 13.7, tachycardic and tachypneic, febrile at 100.8 rectally, lactic acid normal, blood cultures x2 pending, not severe sepsis - CXR negative; CTA negative for PE; possible infiltrates in right middle lobe; procalcitonin 4.03 - COVID/flu/RSV negative; respiratory panel negative - VBG initially with pH of 7.53, improved to 7.40 however PCO2 now 80 from 52. HCO3 49 from 43. - BMP with bicarb of 38 and chloride 87, near baseline - will treat with ceftriaxone and doxycycline, day 3 - levalbuterol/ipratropium Q4H while awake and prn - solumedrol 60mg TID - unable to tolerate bipap, now on high-flow; attempt to wean - monitor CBC and BMP ? CHF, no official dx - pt takes lasix 40mg daily, has 2+ bilateral pitting edema - BNP 44 - no pulmonary edema on CXR - given additional 20mg IV in ED - continue home lasix - echo showing normal LVEF of 68% without obvious felt a other pathology Ascending aortic aneurysm Echo showing AAA of 4.50 Follow up with Cardiology sinus tachycardia -- likely triggered from COPD exacerbation and albuterol use - responsive to diltiazem 10mg IV - treat as above - monitor on tele hypomagnesemia - mag 1.4 - 2mg IV mag alcohol use disorder - no hx etoh withdrawal - monitor CIWA - not showing signs of withdrawal at this time tobacco use disorder - declines nicotine replacement - smoking cessation encouraged - RT smoking cessation consult hypothyroid - continue levothyroxine paroxysmal a fib - EKG with sinus tachycardia, responsive to IV diltiazem 10mg - monitor on tele - continue xaretlo and home meds; will switch Cardizem to metoprolol 50 mg b.i.d. class 1 obesity - BMI 30.5 - weight loss encouraged DNR/DNI VTE prophy: xarelto Patient with acute on chronic respiratory failure with hypoxia and hypercapnia, sepsis and acute COPD exacerbation, requiring admission for at least 2 midnights stay for supplemental oxygen, IV steroids, breathing treatments and antibiotics. Quality Stroke Does the patient have a stroke diagnosis?: No VTE Prior VTE?: No VTE Risk Level:: Medical - moderate - high VTE Device Contraindication: Treatment Not Indicated VTE Drug Contraindication: N/A - Med Ordered
[2025-05-09] MEDS: oxyCODONE HCl Immed Release 5 MG TABLET PO (22:17)
[2025-05-10] VITALS (13 sets, daily range): BP systolic 102–132; BP diastolic 56–76; PULSE 67–92; RESP 16–20; TEMP 36.3–37.3; O2SAT 90–100
[2025-05-10 06:54] LABS: Hematocrit 37.2 % (42.0-52.0); Hemoglobin 12.0 g/dl (14.0-18.0); Imm Gran Abs Auto 0.22 X10*3/uL (0.00-0.03); Imm Gran Pct Auto 1.5 % (0.0-0.4); Lymphocytes Absolute Auto 0.6 X10*3/uL (1.2-4.9); MANUAL DIFF FLAG SCAN; Mean Corpuscular HGB Conc 32.3 g/dl (31.0-36.0); Mean Corpuscular Hemoglobin 30.3 pg (27.0-33.0); Mean Corpuscular Volume 93.9 fL (80.0-98.0); NRBC Abs Auto 0.000 X10*3/uL (0.0-0.012); NRBC Pct Auto 0.0 /100WBC (0.0-0.2); Platelet Count 241 X10*3/uL (160-400); Red Blood Count 3.96 X10*6/uL (4.60-5.80); SCAN SMEAR FLAG 1; White Blood Count 14.2 X10*3/uL (4.8-10.8)
[2025-05-10 07:26] LABS: Anion Gap 13 (12-20); Blood Urea Nitrogen 30 mg/dL (9-16); Calcium 9.5 mg/dL (8.4-10.2); Carbon Dioxide 42 mmol/L (22-29); Chloride 91 mmol/L (96-108); Creatinine Clr Calc Pharmacy 80.6; Estimated Glomerular Filt Rate > 60; Potassium 3.6 mmol/L (3.3-5.1); Sodium 142 mmol/L (135-145)
[2025-05-10] MEDS: Tiotropium Bromide 2.5 mcg 1 PUFF/2.5 MCG MIST.INHAL 2 PUFF INHALE (07:56)
[2025-05-10] MEDS: levalbuterol HCL 1.25 MG, Ipratropium Bromide 0.5 MG INHALE ×4 (07:56→19:01)
[2025-05-10] MEDS: 0.9 % Sodium Chloride Flush 3 ML SYRINGE IVFLUSH ×3 (08:18→20:09)
[2025-05-10] MEDS: Theophylline Anhydrous ER 400 MG TAB.ER.24H PO (08:19)
[2025-05-10 09:04] LABS: VBG HCO3 54 mmol/L (22-26); VBG O2 % Saturation 59.0 %
[2025-05-10 09:10] LABS: Venous Blood Gas Refer to POC result
--- NOTE | 2025-05-10 13:27 | P.PNIM_ITS ---
Subjective Subjective Date of Service: 05/10/25 Interval History: Breathing and SOB better Now off high-flow Cough about the same No chest pain or pressure Review of Systems Review of Systems: Yes all other systems are reviewed and are negative Physical Exam 2 Exam: Exam: General: AOx3, no acute distress Resp: Diminished with mild diffuse bilateral wheezing CVS: S1, S2, RRR GI: +BS, NT, no distention Skin: Warm, dry Neuro: Cranial nerves II-XII grossly intact bilaterally. Motor grossly intact bilaterally Extremities: 1+ bilateral pitting edema Psych: Appropriate affect Vital Signs: Vital Signs: Last Vital Signs Temp 97.4 F 05/10/25 11:32 Pulse 76 05/10/25 11:48 Resp 17 05/10/25 11:48 BP 121/71 05/10/25 11:32 Pulse Ox 100 05/10/25 11:32 O2 Del Method Nasal Cannula 05/10/25 11:32 O2 Flow Rate 4 05/10/25 11:32 FiO2 60 05/10/25 07:20 BMI result Body Mass Index 28.5 Objective Data Active Medications Acetaminophen (Acetaminophen 325 Mg Tablet) 975 mg PO Q6H PRN PRN Reason: Pain, Mild 1-3,fever,headache Albuterol/Ipratropium (Albuterol/Iprat 2.5/0.5mg 3 Ml Ampul.Neb) 3 ml INHALE RQ4H WHILE AWAKE PRN PRN Reason: Shortness of Breath/Wheezing Last Admin: 05/09/25 03:34 Dose: 3 ml Documented By: NAJMA Atorvastatin Calcium (Atorvastatin Calcium 20 Mg Tablet) 20 mg PO DAILY [facility] [place] Last Admin: 05/10/25 08:19 Dose: 20 mg Documented By: GLORIA Calcium Carbonate (Calcium Carbonate 750 Mg Tab.Chew) 750 mg PO Q4H PRN PRN Reason: Heartburn Ceftriaxone Sodium (Ceftriaxone Sodium 1 Gm Vial) 1 gm IVPUSH Q24H [facility] [place] Last Admin: 05/09/25 22:05 Dose: 1 gm Documented By: USHA Levalbuterol HCl 1.25 mg/ (Ipratropium [place] 0.5 mg) 0 mg INHALE RQ4H WHILE AWAKE [facility] [place] Last Admin: 05/10/25 11:48 Dose: 1 dose Documented By: RADHA Furosemide (Furosemide 40 Mg Tablet) 40 mg PO DAILY [facility] [place]; Protocol Last Admin: 05/10/25 08:19 Dose: 40 mg Documented By: GLORIA Doxycycline Hyclate 100 mg/ (Sodium Chloride) 250 mls @ 166.67 mls/hr IV BID [facility] [place] Last Infusion: 05/10/25 10:24 Dose: Infused Documented By: GLORIA Levothyroxine Sodium (Levothyroxine Sodium 88 Mcg Tablet) 88 mcg PO DAILY@0600 [facility] [place] Last Admin: 05/10/25 05:24 Dose: 88 mcg Documented By: TRU Magnesium Hydroxide (Milk Of Magnesia 30 Ml Oral.Susp) 30 ml PO DAILY PRN PRN Reason: Constipation Melatonin (Melatonin 3 Mg Tablet) 6 mg PO BEDTIME PRN PRN Reason: Insomnia Last Admin: 05/08/25 01:41 Dose: 6 mg Documented By: REESE Methylprednisolone Sodium Succinate (Methylprednisolone Sod Succ 125 Mg/2 Ml Vial) 60 mg IVPUSH TID [facility] [place] Last Admin: 05/10/25 08:18 Dose: 60 mg Documented By: GLORIA Metoprolol Tartrate (Metoprolol Tartrate 50 Mg Tablet) 50 mg PO BID [facility] [place]; Protocol Last Admin: 05/10/25 08:19 Dose: 50 mg Documented By: GLORIA Ondansetron HCl (Ondansetron Hcl 4 Mg/2 Ml Vial) 4 mg IVPUSH Q8H PRN PRN Reason: Nausea and Vomiting Oxycodone HCl (Oxycodone Hcl Immed Release 5 Mg Tablet) 5 mg PO Q6H PRN PRN Reason: Pain, Severe (Pain Scale 7-10) Last Admin: 05/09/25 22:17 Dose: 5 mg Documented By: USHA Rivaroxaban (Rivaroxaban 20 Mg Tablet) 20 mg PO DAILY@1700 [facility] [place] Last Admin: 05/09/25 17:08 Dose: 20 mg Documented By: GLORIA Sodium Chloride (0.9 % Sodium Chloride Flush 3 Ml Syringe) 3 ml IVFLUSH QSHIFT [facility] [place] Last Admin: 05/10/25 08:18 Dose: 3 ml Documented By: GLORIA Theophylline (Theophylline Anhydrous Er 400 Mg Tab.Er.24h) 400 mg PO DAILY [facility] [place] Last Admin: 05/10/25 08:19 Dose: 400 mg Documented By: GLORIA Tiotropium [place] (Tiotropium [place] 2.5 Mcg 1 Puff/2.5 Mcg Mist.Inhal) 2 puff INHALE RDAILY [facility] [place] Last Admin: 05/10/25 07:56 Dose: 2 puff Documented By: RADHA Tramadol HCl (Tramadol Hcl 50 Mg Tablet) 50 mg PO Q6H PRN PRN Reason: Pain, Moderate(Pain Scale 4-6) Last Admin: 05/08/25 09:44 Dose: 50 mg Documented By: MAURO Vitamin D (Cholecalciferol (Vitamin D3) 25 Mcg Tablet) 25 mcg PO DAILY [facility] [place] Last Admin: 05/10/25 08:19 Dose: 25 mcg Documented By: GLORIA Labs 05/10/25 06:13 05/10/25 06:13 Labs: Laboratory Results - last 24 hr 05/10/25 05/10/25 06:13 08:59 MCV 93.9 MCH 30.3 MCHC 32.3 RDW 13.7 Plt Count 241 MPV 11.9 Immature Gran % (Auto) 1.5 H Neut % (Auto) 91.2 H Lymph % (Auto) 4.4 L Dunn % (Auto) 2.7 Eos % (Auto) 0.0 Baso % (Auto) 0.2 Lymph # (Auto) 0.6 L [place] # (Auto) 0.4 Eos # (Auto) 0.0 Baso # (Auto) 0.0 Abs Immat Gran (auto) 0.22 H Absolute Neuts (auto) 12.9 H Absolute Nucleated RBC 0.000 Nucleated RBC % (auto) 0.0 Smear Tech's Comments VERIFIED VBG pH 7.47 H VBG pCO2 74 VBG pO2 40 VBG HCO3 54 H VBG O2 Saturation 59.0 VBG Base Excess 25.2 Anion Gap 13 Estim Creat Clear Calc 80.6 Estimated GFR > 60 Random Glucose 123 H Calcium 9.5 Assessment and Plan (1) Acute on chronic respiratory failure with hypoxia and hypercapnia: Status: Acute (2) Chronic obstructive pulmonary disease with (acute) exacerbation: Status: Acute Plan Pt is a 69 yo male with a pmhx signficant for 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 Of note the triage note mentions that the patient came in for back pain. The patient states this is untrue and he did not come in for back pain but did develop back pain after spending a long period of time on the stretcher in the ED. Acute on chronic respiratory failure with hypoxia and hypercapnia, sepsis, acute COPD exacerbation and underlying pneumonia - WBC 13.7, tachycardic and tachypneic, febrile at 100.8 rectally, lactic acid normal, blood cultures x2 pending, not severe sepsis - CXR negative; CTA negative for PE; possible infiltrates in right middle lobe; procalcitonin 4.03 - COVID/flu/RSV negative; respiratory panel negative - VBG now with 4.47, pCO2 74, and bicarb 54 - BMP with bicarb of 42 and chloride 91, a little above baseline - will treat with ceftriaxone and doxycycline, day 4 - levalbuterol/ipratropium Q4H while awake and prn - reduce solumedrol to 40 bid; originally on Solu-Medrol 60 mg t.i.d. - unable to tolerate bipap, weaned from high-flow, now on baseline 3L - monitor BMP and VBG Chronic lower leg edema - no CHF dx; edema intermittent - pt takes lasix 40mg daily, has 1+ bilateral pitting edema - BNP 44 - no pulmonary edema on CXR - given additional 20mg IV in ED - continue home lasix - echo showing normal LVEF of 68% without obvious felt a other pathology Ascending aortic aneurysm Echo showing AAA of 4.50 Follow up with Cardiology sinus tachycardia -- likely triggered from COPD exacerbation and albuterol use - responsive to diltiazem 10mg IV - treat as above - monitor on tele hypomagnesemia - mag 1.4 - 2mg IV mag alcohol use disorder - no hx etoh withdrawal - monitor CIWA - not showing signs of withdrawal at this time tobacco use disorder - declines nicotine replacement - smoking cessation encouraged - RT smoking cessation consult hypothyroid - continue levothyroxine paroxysmal a fib - EKG with sinus tachycardia, responsive to IV diltiazem 10mg - monitor on tele - continue xaretlo and home meds; will switch Cardizem to metoprolol 50 mg b.i.d. class 1 obesity - BMI 30.5 - weight loss encouraged DNR/DNI VTE prophy: xarelto Patient with acute on chronic respiratory failure with hypoxia and hypercapnia, sepsis and acute COPD exacerbation, requiring admission for at least 2 midnights stay for supplemental oxygen, IV steroids, breathing treatments and antibiotics. Quality Stroke Does the patient have a stroke diagnosis?: No VTE Prior VTE?: No VTE Risk Level:: Medical - moderate - high VTE Device Contraindication: Treatment Not Indicated VTE Drug Contraindication: N/A - Med Ordered
[2025-05-10] MEDS: oxyCODONE HCl Immed Release 5 MG TABLET PO (20:08)
[2025-05-11] VITALS (13 sets, daily range): BP systolic 118–140; BP diastolic 56–71; PULSE 68–84; RESP 12–20; TEMP 36.1–36.8; O2SAT 91–98
[2025-05-11 06:10] LABS: Venous Blood Gas Refer to POC result
[2025-05-11 06:15] LABS: VBG HCO3 43 mmol/L (22-26); VBG O2 % Saturation 79.0 %
[2025-05-11 06:39] LABS: Anion Gap 13 (12-20); Blood Urea Nitrogen 31 mg/dL (9-16); Calcium 9.2 mg/dL (8.4-10.2); Carbon Dioxide 38 mmol/L (22-29); Chloride 95 mmol/L (96-108); Creatinine Clr Calc Pharmacy 71.3; Estimated Glomerular Filt Rate > 60; Potassium 3.8 mmol/L (3.3-5.1); Sodium 142 mmol/L (135-145)
[2025-05-11 06:47] LABS: Hematocrit 36.1 % (42.0-52.0); Hemoglobin 11.4 g/dl (14.0-18.0); Mean Corpuscular HGB Conc 31.6 g/dl (31.0-36.0); Mean Corpuscular Hemoglobin 30.0 pg (27.0-33.0); Mean Corpuscular Volume 95.0 fL (80.0-98.0); NRBC Abs Auto 0.000 X10*3/uL (0.0-0.012); NRBC Pct Auto 0.0 /100WBC (0.0-0.2); Platelet Count 208 X10*3/uL (160-400); Red Blood Count 3.80 X10*6/uL (4.60-5.80); White Blood Count 12.9 X10*3/uL (4.8-10.8)
[2025-05-11] MEDS: levalbuterol HCL 1.25 MG, Ipratropium Bromide 0.5 MG INHALE ×3 (07:48→15:31)
[2025-05-11] MEDS: Tiotropium Bromide 2.5 mcg 1 PUFF/2.5 MCG MIST.INHAL 2 PUFF INHALE (07:51)
[2025-05-11] MEDS: Theophylline Anhydrous ER 400 MG TAB.ER.24H PO (08:27)
[2025-05-11] MEDS: 0.9 % Sodium Chloride Flush 3 ML SYRINGE IVFLUSH ×3 (08:27→20:31)
[2025-05-11 09:20] LABS: Magnesium 1.5 mg/dL (1.6-2.6)
[2025-05-11 09:36] LABS: Procalcitonin 5.62 ng/mL
--- NOTE | 2025-05-11 13:30 | HO.PM.IMPN ---
Subjective Subjective Date of Service: 05/11/25 Interval History: dyspnea + cough improving Review of Systems Review of Systems: Yes all other systems are reviewed and are negative Physical Exam Vital Signs: Vital Signs: Last Vital Signs Temp 97.9 F 05/11/25 11:57 Pulse 79 05/11/25 11:57 Resp 20 05/11/25 11:57 BP 132/60 05/11/25 11:57 Pulse Ox 92 05/11/25 11:57 O2 Del Method Nasal Cannula 05/11/25 11:57 O2 Flow Rate 1 05/11/25 11:57 FiO2 60 05/10/25 07:20 BMI result Body Mass Index 28.5 Gen: in no acute distress HEENT: sclera anicteric, moist mucus membranes Neck: supple Lungs: clear to auscultation bilaterally Heart: regular rate and rhythm, no murmurs Abd: soft, non-tender, non-distended Ext: no edema Skin: warm/well-perfused Neuro: alert and oriented x3, no focal findings Psych: appropriate affect Objective Data Active Medications Acetaminophen (Acetaminophen 325 Mg Tablet) 975 mg PO Q6H PRN PRN Reason: Pain, Mild 1-3,fever,headache Acetazolamide (Acetazolamide Sodium 500 Mg Vial) 500 mg IVPUSH BID [facility] Stop: 05/12/25 20:59 Last Admin: 05/11/25 08:27 Dose: 500 mg Documented By: JACQUIE Albuterol/Ipratropium (Albuterol/Iprat 2.5/0.5mg 3 Ml Ampul.Neb) 3 ml INHALE RQ4H WHILE AWAKE PRN PRN Reason: Shortness of Breath/Wheezing Last Admin: 05/09/25 03:34 Dose: 3 ml Documented By: NAJMA Atorvastatin Calcium (Atorvastatin Calcium 20 Mg Tablet) 20 mg PO DAILY [facility] Last Admin: 05/11/25 08:26 Dose: 20 mg Documented By: JACQUIE Calcium Carbonate (Calcium Carbonate 750 Mg Tab.Chew) 750 mg PO Q4H PRN PRN Reason: Heartburn Ceftriaxone Sodium (Ceftriaxone Sodium 1 Gm Vial) 1 gm IVPUSH Q24H [facility] Last Admin: 05/10/25 20:09 Dose: 1 gm Documented By: FERNANDO Levalbuterol HCl 1.25 mg/ (Ipratropium [place] 0.5 mg) 0 mg INHALE RQ4H WHILE AWAKE [facility] Last Admin: 05/11/25 11:26 Dose: 1.3 dose Documented By: VAHID Doxycycline Monohydrate (Doxycycline Monohydrate 100 Mg Capsule) 100 mg PO BID [facility] Last Admin: 05/11/25 08:53 Dose: 100 mg Documented By: JACQUIE Furosemide (Furosemide 40 Mg Tablet) 40 mg PO DAILY [facility]; Protocol On Hold: 05/10/25 18:24 Last Admin: 05/10/25 08:19 Dose: 40 mg Documented By: GLORIA Levothyroxine Sodium (Levothyroxine Sodium 88 Mcg Tablet) 88 mcg PO DAILY@0600 [facility] Last Admin: 05/11/25 06:13 Dose: 88 mcg Documented By: FERNANDO Magnesium Hydroxide (Milk Of Magnesia 30 Ml Oral.Susp) 30 ml PO DAILY PRN PRN Reason: Constipation Melatonin (Melatonin 3 Mg Tablet) 6 mg PO BEDTIME PRN PRN Reason: Insomnia Last Admin: 05/08/25 01:41 Dose: 6 mg Documented By: REESE Metoprolol Tartrate (Metoprolol Tartrate 50 Mg Tablet) 50 mg PO BID [facility]; Protocol Last Admin: 05/11/25 08:26 Dose: 50 mg Documented By: JACQUIE Ondansetron HCl (Ondansetron Hcl 4 Mg/2 Ml Vial) 4 mg IVPUSH Q8H PRN PRN Reason: Nausea and Vomiting Oxycodone HCl (Oxycodone Hcl Immed Release 5 Mg Tablet) 5 mg PO Q6H PRN PRN Reason: Pain, Severe (Pain Scale 7-10) Last Admin: 05/10/25 20:08 Dose: 5 mg Documented By: FERNANDO Prednisone (Prednisone 20 Mg Tablet) 40 mg PO DAILY [facility] Rivaroxaban (Rivaroxaban 20 Mg Tablet) 20 mg PO DAILY@1700 [facility] Last Admin: 05/10/25 16:49 Dose: 20 mg Documented By: GLORIA Sodium Chloride (0.9 % Sodium Chloride Flush 3 Ml Syringe) 3 ml IVFLUSH QSHIFT [facility] Last Admin: 05/11/25 08:27 Dose: 3 ml Documented By: JACQUIE Theophylline (Theophylline Anhydrous Er 400 Mg Tab.Er.24h) 400 mg PO DAILY [facility] Last Admin: 05/11/25 08:27 Dose: 400 mg Documented By: JACQUIE Tiotropium [place] (Tiotropium [place] 2.5 Mcg 1 Puff/2.5 Mcg Mist.Inhal) 2 puff INHALE RDAILY [facility] Last Admin: 05/11/25 07:51 Dose: 2 puff Documented By: VAHID Tramadol HCl (Tramadol Hcl 50 Mg Tablet) 50 mg PO Q6H PRN PRN Reason: Pain, Moderate(Pain Scale 4-6) Last Admin: 05/08/25 09:44 Dose: 50 mg Documented By: MAURO Vitamin D (Cholecalciferol (Vitamin D3) 25 Mcg Tablet) 25 mcg PO DAILY [facility] Last Admin: 05/11/25 08:27 Dose: 25 mcg Documented By: JACQUIE Labs 05/11/25 06:05 05/11/25 05:55 Labs: Laboratory Results - last 24 hr 05/11/25 05/11/25 05/11/25 05:55 06:05 06:09 MCV 95.0 MCH 30.0 MCHC 31.6 RDW 13.6 Plt Count 208 MPV 12.6 H Absolute Nucleated RBC 0.000 Nucleated RBC % (auto) 0.0 VBG pH 7.41 VBG pCO2 67 VBG pO2 53 VBG HCO3 43 H VBG O2 Saturation 79.0 VBG Base Excess 16.1 Anion Gap 13 Estim Creat Clear Calc 71.3 Estimated GFR > 60 Random Glucose 124 H Calcium 9.2 Magnesium 1.5 L Procalcitonin 5.62 Assessment and Plan (1) Acute on chronic respiratory failure with hypoxia and hypercapnia: Status: Acute (2) Chronic obstructive pulmonary disease with (acute) exacerbation: Status: Acute Plan d5, 69yo M with COPD on 3L O2 at home, pAF on rivaroxaban, hypothyroidism presenting with dyspnea, admitted for COPD + pneumonia acute/chronic hypoxic/hypercapneic respiratory failure and sepsis due to COPD exacebation + PNA - goal O2 no greater than 92% - 05/07- ceftriaxone + doxycycline but PCT essentially unchanged though symptomatically improved; check MRSA + urinary antigens for Legionella and pneumococcus; change to prednisone PO taper, continue nebs - continue tiotropium, theophyilline - continue acetazolamide until tomorrow chronic leg edema, intermittent - prn PO furosemide hypoMg - replete, recheck level tomorrow dilation of ascending aorta, 4.5 cm - Cardiology outpt follow-up AUD without withdrawal - d/c CIWA tobacco abuse - counseling, declines NRT hypothyroidism - continue LT4 pAF - continue rivaroxabam, changed diltiazem to metoprolol HLD - statin VTE ppx - rivaroxaban dispo - home with VNA In my clinical judgment, the patient requires continued inpatient hospitalization for the following reasons: IV ABX Total time managing care of this patient today: 35 minutes. Quality Stroke Does the patient have a stroke diagnosis?: No VTE Prior VTE?: No VTE Risk Level:: Medical - moderate - high VTE Device Contraindication: Treatment Not Indicated VTE Drug Contraindication: N/A - Med Ordered
[2025-05-11] MEDS: Magnesium Sulfate/H2O 2 GM/50 ML PIGGYBACK IV (14:36)
--- NOTE | 2025-05-11 14:52 | MHC.CM.PN ---
Per rounds, anticipate pt. to DC to home with services tomorrow, [facility] updated.
[2025-05-11] MEDS: oxyCODONE HCl Immed Release 5 MG TABLET PO (20:30)
[2025-05-12] VITALS (10 sets, daily range): BP systolic 107–143; BP diastolic 56–76; PULSE 70–98; RESP 16–20; TEMP 36.2–36.8; O2SAT 92–98
[2025-05-12 06:03] LABS: Venous Blood Gas Refer to POC result
[2025-05-12 06:07] LABS: VBG HCO3 39 mmol/L (22-26); VBG O2 % Saturation 85.0 %
[2025-05-12 06:23] LABS: Anion Gap 12 (12-20); Blood Urea Nitrogen 31 mg/dL (9-16); Calcium 9.3 mg/dL (8.4-10.2); Carbon Dioxide 35 mmol/L (22-29); Chloride 96 mmol/L (96-108); Creatinine Clr Calc Pharmacy 75.7; Estimated Glomerular Filt Rate > 60; Magnesium 1.9 mg/dL (1.6-2.6); Potassium 3.3 mmol/L (3.3-5.1); Sodium 140 mmol/L (135-145)
[2025-05-12 06:36] LABS: Procalcitonin 1.94 ng/mL
[2025-05-12] MEDS: Theophylline Anhydrous ER 400 MG TAB.ER.24H PO (08:16)
[2025-05-12] MEDS: 0.9 % Sodium Chloride Flush 3 ML SYRINGE IVFLUSH ×3 (08:17→21:46)
[2025-05-12] MEDS: Milk of Magnesia 30 ML ORAL.SUSP PO (08:25)
[2025-05-12] MEDS: Tiotropium Bromide 2.5 mcg 1 PUFF/2.5 MCG MIST.INHAL 2 PUFF INHALE (08:36)
[2025-05-12] MEDS: levalbuterol HCL 1.25 MG, Ipratropium Bromide 0.5 MG INHALE ×4 (08:36→19:43)
[2025-05-12 10:28] LABS: MRSA Nasal PCR NEGATIVE (Negative); SA Nasal PCR NEGATIVE (Negative)
--- NOTE | 2025-05-12 12:29 | P.PNIM_ITS ---
Subjective Subjective Date of Service: 05/12/25 Interval History: cough/dyspnea improved sister with whom he lives has symptomatic Covid-19 infection and pt does not have anywhere else to go; denies hx of Covid-19 or vaccination Review of Systems Review of Systems: Yes all other systems are reviewed and are negative Physical Exam 2 Vital Signs: Vital Signs: Last Vital Signs Temp 98.3 F 05/12/25 11:27 Pulse 73 05/12/25 11:53 Resp 16 05/12/25 11:53 BP 107/76 05/12/25 11:27 Pulse Ox 96 05/12/25 11:27 O2 Del Method Room Air 05/12/25 11:27 O2 Flow Rate 1 05/12/25 07:52 FiO2 60 05/10/25 07:20 BMI result Body Mass Index 28.5 Gen: in no acute distress HEENT: sclera anicteric, moist mucus membranes Neck: supple Lungs: diminished Heart: regular rate and rhythm, no murmurs Abd: soft, non-tender, non-distended Ext: no edema Skin: warm/well-perfused Neuro: alert and oriented x3, no focal findings Psych: appropriate affect Objective Data Active Medications Acetaminophen (Acetaminophen 325 Mg Tablet) 975 mg PO Q6H PRN PRN Reason: Pain, Mild 1-3,fever,headache Acetazolamide (Acetazolamide Sodium 500 Mg Vial) 500 mg IVPUSH BID [facility] Stop: 05/12/25 20:59 Last Admin: 05/12/25 08:16 Dose: 500 mg Documented By: JACQUIE Albuterol/Ipratropium (Albuterol/Iprat 2.5/0.5mg 3 Ml Ampul.Neb) 3 ml INHALE RQ4H WHILE AWAKE PRN PRN Reason: Shortness of Breath/Wheezing Last Admin: 05/09/25 03:34 Dose: 3 ml Documented By: NAJMA Atorvastatin Calcium (Atorvastatin Calcium 20 Mg Tablet) 20 mg PO DAILY [facility] Last Admin: 05/12/25 08:16 Dose: 20 mg Documented By: JACQUIE Calcium Carbonate (Calcium Carbonate 750 Mg Tab.Chew) 750 mg PO Q4H PRN PRN Reason: Heartburn Ceftriaxone Sodium (Ceftriaxone Sodium 1 Gm Vial) 1 gm IVPUSH Q24H [facility] Last Admin: 05/11/25 20:30 Dose: 1 gm Documented By: CLIFFORD Levalbuterol HCl 1.25 mg/ (Ipratropium [place] 0.5 mg) 0 mg INHALE RQ4H WHILE AWAKE [facility] Last Admin: 05/12/25 11:46 Dose: 1 dose Documented By: CHAPARRO Doxycycline Monohydrate (Doxycycline Monohydrate 100 Mg Capsule) 100 mg PO BID [facility] Last Admin: 05/12/25 08:16 Dose: 100 mg Documented By: JACQUIE Furosemide (Furosemide 40 Mg Tablet) 40 mg PO DAILY [facility]; Protocol On Hold: 05/10/25 18:24 Last Admin: 05/10/25 08:19 Dose: 40 mg Documented By: BRODarwin Levothyroxine Sodium (Levothyroxine Sodium 88 Mcg Tablet) 88 mcg PO DAILY@0600 [facility] Last Admin: 05/12/25 05:53 Dose: 88 mcg Documented By: CLIFFORD Magnesium Hydroxide (Milk Of Magnesia 30 Ml Oral.Susp) 30 ml PO DAILY PRN PRN Reason: Constipation Last Admin: 05/12/25 08:25 Dose: 30 ml Documented By: JACQUIE Melatonin (Melatonin 3 Mg Tablet) 6 mg PO BEDTIME PRN PRN Reason: Insomnia Last Admin: 05/08/25 01:41 Dose: 6 mg Documented By: REESE Metoprolol Tartrate (Metoprolol Tartrate 50 Mg Tablet) 50 mg PO BID [facility]; Protocol Last Admin: 05/12/25 08:16 Dose: 50 mg Documented By: JACQUIE Ondansetron HCl (Ondansetron Hcl 4 Mg/2 Ml Vial) 4 mg IVPUSH Q8H PRN PRN Reason: Nausea and Vomiting Oxycodone HCl (Oxycodone Hcl Immed Release 5 Mg Tablet) 5 mg PO Q6H PRN PRN Reason: Pain, Severe (Pain Scale 7-10) Last Admin: 05/11/25 20:30 Dose: 5 mg Documented By: CLIFFORD Prednisone (Prednisone 20 Mg Tablet) 40 mg PO DAILY [facility] Last Admin: 05/12/25 08:16 Dose: 40 mg Documented By: JACQUIE Rivaroxaban (Rivaroxaban 20 Mg Tablet) 20 mg PO DAILY@1700 [facility] Last Admin: 05/11/25 16:21 Dose: 20 mg Documented By: KARRI Senna/Docusate Sodium (Sennosides/Docusate Sodium Tablet) 2 tab PO BID [facility] Last Admin: 05/12/25 12:01 Dose: Not Given Documented By: JACQUIE Non-Admin Reason: Pt. had BM Sodium Chloride (0.9 % Sodium Chloride Flush 3 Ml Syringe) 3 ml IVFLUSH QSHIFT [facility] Last Admin: 05/12/25 08:17 Dose: 3 ml Documented By: JACQUIE Theophylline (Theophylline Anhydrous Er 400 Mg Tab.Er.24h) 400 mg PO DAILY [facility] Last Admin: 05/12/25 08:16 Dose: 400 mg Documented By: JACQUIE Tiotropium [place] (Tiotropium [place] 2.5 Mcg 1 Puff/2.5 Mcg Mist.Inhal) 2 puff INHALE RDAILY [facility] Last Admin: 05/12/25 08:36 Dose: 2 puff Documented By: CHAPARRO Tramadol HCl (Tramadol Hcl 50 Mg Tablet) 50 mg PO Q6H PRN PRN Reason: Pain, Moderate(Pain Scale 4-6) Last Admin: 05/08/25 09:44 Dose: 50 mg Documented By: MAURO Vitamin D (Cholecalciferol (Vitamin D3) 25 Mcg Tablet) 25 mcg PO DAILY [facility] Last Admin: 05/12/25 08:16 Dose: 25 mcg Documented By: JACQUIE Labs 05/11/25 06:05 05/12/25 05:53 Labs: Laboratory Results - last 24 hr 05/12/25 05/12/25 05/12/25 05:53 06:02 09:04 Hold Purple [place] SEE NOTE VBG pH 7.36 VBG pCO2 70 VBG pO2 62 VBG HCO3 39 H VBG O2 Saturation 85.0 VBG Base Excess 11.5 Anion Gap 12 Estim Creat Clear Calc 75.7 Estimated GFR > 60 Random Glucose 87 Calcium 9.3 Magnesium 1.9 Procalcitonin 1.94 Nasal Screen MRSA (PCR) NEGATIVE Nasal S. aureus Screen NEGATIVE Nasal MRSA/S.aureus Interp SEE NOTE Assessment and Plan (1) Acute on chronic respiratory failure with hypoxia and hypercapnia: Status: Acute (2) Chronic obstructive pulmonary disease with (acute) exacerbation: Status: Acute Plan d6, 69yo M with COPD on 3L O2 at home, pAF on rivaroxaban, hypothyroidism presenting with dyspnea, admitted for COPD + pneumonia acute/chronic hypoxic/hypercapneic respiratory failure and sepsis due to COPD exacebation + PNA - goal O2 no greater than 92% - 05/07- ceftriaxone + doxycycline; PCT improved; MRSA negative; urinary antigens for Legionella and pneumococcus pending; changed to prednisone PO taper 05/11-, continue nebs - continue tiotropium, theophyilline - d/c acetazolamide chronic leg edema, intermittent - prn PO furosemide hypoMg - repleted dilation of ascending aorta, 4.5 cm - Cardiology outpt follow-up AUD without withdrawal - d/c CIWA tobacco abuse - counseling, declines NRT hypothyroidism - continue LT4 pAF - continue rivaroxabam, changed diltiazem to metoprolol HLD - statin VTE ppx - rivaroxaban dispo - home with VNA but unsafe to discharge at this time due to home situation; CM consult In my clinical judgment, the patient requires continued inpatient hospitalization for the following reasons: placement Total time managing care of this patient today: 35 minutes. Quality Stroke Does the patient have a stroke diagnosis?: No VTE Prior VTE?: No VTE Risk Level:: Medical - moderate - high VTE Device Contraindication: Treatment Not Indicated VTE Drug Contraindication: N/A - Med Ordered
--- NOTE | 2025-05-12 16:14 | MHC.CM.PN ---
Pt has been medically cleared to go home with services from [facility], however, his sister., with whom he lives, has COVID, and he is not vaccinated against it. Pt. has agreed to go to [facility] in [place] for a 5 day respite stay, private pay. CM has reached out to [place] to inform and request that O2 be arrange to go to [facility] for pt. Anticipated DC date is 05/13/25.
[2025-05-12] MEDS: oxyCODONE HCl Immed Release 5 MG TABLET PO (21:40)
[2025-05-13] VITALS (9 sets, daily range): BP systolic 113–128; BP diastolic 55–62; PULSE 63–87; RESP 18; TEMP 36.2–37.1; O2SAT 93–97
[2025-05-13] MEDS: Theophylline Anhydrous ER 400 MG TAB.ER.24H PO (07:40)
[2025-05-13] MEDS: 0.9 % Sodium Chloride Flush 3 ML SYRINGE IVFLUSH ×2 (07:40→19:44)
[2025-05-13] MEDS: levalbuterol HCL 1.25 MG, Ipratropium Bromide 0.5 MG INHALE ×4 (07:43→20:20)
[2025-05-13] MEDS: Tiotropium Bromide 2.5 mcg 1 PUFF/2.5 MCG MIST.INHAL 2 PUFF INHALE (07:46)
--- NOTE | 2025-05-13 13:59 | HO.PM.IMPN ---
Subjective Subjective Date of Service: 05/13/25 Interval History: breathing improved awaiting placement Review of Systems Review of Systems: Yes all other systems are reviewed and are negative Physical Exam Vital Signs: Vital Signs: Last Vital Signs Temp 97.1 F 05/13/25 07:40 Pulse 78 05/13/25 11:35 Resp 18 05/13/25 11:35 BP 114/56 L 05/13/25 07:40 Pulse Ox 96 05/13/25 07:40 O2 Del Method Nasal Cannula 05/13/25 07:40 O2 Flow Rate 1 05/13/25 07:40 FiO2 60 05/10/25 07:20 BMI result Body Mass Index 28.5 Gen: in no acute distress HEENT: sclera anicteric, moist mucus membranes Neck: supple Lungs: diminished Heart: regular rate and rhythm, no murmurs Abd: soft, non-tender, non-distended Ext: no edema Skin: warm/well-perfused Neuro: alert and oriented x3, no focal findings Psych: appropriate affect Objective Data Active Medications Acetaminophen (Acetaminophen 325 Mg Tablet) 975 mg PO Q6H PRN PRN Reason: Pain, Mild 1-3,fever,headache Albuterol/Ipratropium (Albuterol/Iprat 2.5/0.5mg 3 Ml Ampul.Neb) 3 ml INHALE RQ4H WHILE AWAKE PRN PRN Reason: Shortness of Breath/Wheezing Last Admin: 05/09/25 03:34 Dose: 3 ml Documented By: NAJMA Atorvastatin Calcium (Atorvastatin Calcium 20 Mg Tablet) 20 mg PO DAILY [facility] Last Admin: 05/13/25 07:39 Dose: 20 mg Documented By: SANDI Calcium Carbonate (Calcium Carbonate 750 Mg Tab.Chew) 750 mg PO Q4H PRN PRN Reason: Heartburn Ceftriaxone Sodium (Ceftriaxone Sodium 1 Gm Vial) 1 gm IVPUSH Q24H [facility] Last Admin: 05/12/25 21:40 Dose: 1 gm Documented By: CLIFFORD Levalbuterol HCl 1.25 mg/ (Ipratropium [place] 0.5 mg) 0 mg INHALE RQ4H WHILE AWAKE [facility] Last Admin: 05/13/25 11:33 Dose: 1 dose Documented By: RADHA Doxycycline Monohydrate (Doxycycline Monohydrate 100 Mg Capsule) 100 mg PO BID [facility] Last Admin: 05/13/25 07:40 Dose: 100 mg Documented By: SANDI Furosemide (Furosemide 40 Mg Tablet) 40 mg PO DAILY [facility]; Protocol On Hold: 05/10/25 18:24 Last Admin: 05/10/25 08:19 Dose: 40 mg Documented By: BRODarwin Levothyroxine Sodium (Levothyroxine Sodium 88 Mcg Tablet) 88 mcg PO DAILY@0600 [facility] Last Admin: 05/13/25 04:49 Dose: 88 mcg Documented By: SHARON-JUSTICE Magnesium Hydroxide (Milk Of Magnesia 30 Ml Oral.Susp) 30 ml PO DAILY PRN PRN Reason: Constipation Last Admin: 05/12/25 08:25 Dose: 30 ml Documented By: JACQUIE Melatonin (Melatonin 3 Mg Tablet) 6 mg PO BEDTIME PRN PRN Reason: Insomnia Last Admin: 05/08/25 01:41 Dose: 6 mg Documented By: REESE Metoprolol Tartrate (Metoprolol Tartrate 50 Mg Tablet) 50 mg PO BID [facility]; Protocol Last Admin: 05/13/25 07:40 Dose: 50 mg Documented By: SANDI Ondansetron HCl (Ondansetron Hcl 4 Mg/2 Ml Vial) 4 mg IVPUSH Q8H PRN PRN Reason: Nausea and Vomiting Prednisone (Prednisone 20 Mg Tablet) 40 mg PO DAILY [facility] Last Admin: 05/13/25 07:39 Dose: 40 mg Documented By: SANDI Rivaroxaban (Rivaroxaban 20 Mg Tablet) 20 mg PO DAILY@1700 [facility] Last Admin: 05/12/25 16:53 Dose: 20 mg Documented By: AASHISH Senna/Docusate Sodium (Sennosides/Docusate Sodium Tablet) 2 tab PO BID [facility] Last Admin: 05/13/25 07:40 Dose: 2 tab Documented By: SANDI Sodium Chloride (0.9 % Sodium Chloride Flush 3 Ml Syringe) 3 ml IVFLUSH QSHIFT [facility] Last Admin: 05/13/25 07:40 Dose: 3 ml Documented By: SANDI Theophylline (Theophylline Anhydrous Er 400 Mg Tab.Er.24h) 400 mg PO DAILY [facility] Last Admin: 05/13/25 07:40 Dose: 400 mg Documented By: SANDI Tiotropium [place] (Tiotropium [place] 2.5 Mcg 1 Puff/2.5 Mcg Mist.Inhal) 2 puff INHALE RDAILY [facility] Last Admin: 05/13/25 07:46 Dose: 2 puff Documented By: RADHA Vitamin D (Cholecalciferol (Vitamin D3) 25 Mcg Tablet) 25 mcg PO DAILY [facility] Last Admin: 05/13/25 07:40 Dose: 25 mcg Documented By: SANDI Labs 05/11/25 06:05 05/12/25 05:53 Assessment and Plan (1) Acute on chronic respiratory failure with hypoxia and hypercapnia: Status: Acute (2) Chronic obstructive pulmonary disease with (acute) exacerbation: Status: Acute Plan d7, 69yo M with COPD on 3L O2 at home, pAF on rivaroxaban, hypothyroidism presenting with dyspnea, admitted for COPD + pneumonia acute/chronic hypoxic/hypercapneic respiratory failure and sepsis due to COPD exacebation + PNA - goal O2 no greater than 92% - 05/07-05/14 ceftriaxone + doxycycline; PCT improved; MRSA negative; urinary antigens for Legionella and pneumococcus pending; changed to prednisone PO taper 05/11-, continue nebs - continue tiotropium, theophyilline - d/c'ed acetazolamide chronic leg edema, intermittent - prn PO furosemide hypoMg - repleted dilation of ascending aorta, 4.5 cm - Cardiology outpt follow-up AUD without withdrawal - d/c CIWA tobacco abuse - counseling, declines NRT hypothyroidism - continue LT4 pAF - continue rivaroxabam, changed diltiazem to metoprolol HLD - statin VTE ppx - rivaroxaban dispo - home with VNA but unsafe to discharge at this time due to home situation; CM working on respite care but needs O2 In my clinical judgment, the patient requires continued inpatient hospitalization for the following reasons: placement Total time managing care of this patient today: 35 minutes. Quality Stroke Does the patient have a stroke diagnosis?: No VTE Prior VTE?: No VTE Risk Level:: Medical - moderate - high VTE Device Contraindication: Treatment Not Indicated VTE Drug Contraindication: N/A - Med Ordered
--- NOTE | 2025-05-13 15:37 | MHC.CM.PN ---
Pt. not going to respite at [facility], [place] was not able to arrange for O2 today. He will stay until Friday at which time MD said he can DC to home.
[2025-05-13] MEDS: oxyCODONE HCl Immed Release 5 MG TABLET PO (22:12)
--- NOTE | 2025-05-13 22:12 | MHC.PIE ---
p; pt c/o pain 07/15 to back, note; prn oxy 5mg po d/c'd? i; dr louis notified. new order oxy 5mg q6 e; will cont to monitor
[2025-05-14] VITALS (12 sets, daily range): BP systolic 113–124; BP diastolic 55–67; PULSE 66–97; RESP 16–22; TEMP 36.1–37.4; O2SAT 91–98
[2025-05-14 02:49] LABS: Strep Pneumo Ag urine Not Detected (Not Detected)
[2025-05-14] MEDS: levalbuterol HCL 1.25 MG, Ipratropium Bromide 0.5 MG INHALE ×4 (07:35→20:06)
--- NOTE | 2025-05-14 07:52 | PC.RT ---
Pt SATs 97% on 1L. PT is 3L baseline, however O2 goal per MD is 92%. Pt taken off O2, SATs remained mid 90's on RA. RN aware
[2025-05-14] MEDS: Tiotropium Bromide 2.5 mcg 1 PUFF/2.5 MCG MIST.INHAL 2 PUFF INHALE (07:58)
[2025-05-14] MEDS: Theophylline Anhydrous ER 400 MG TAB.ER.24H PO (08:37)
[2025-05-14] MEDS: 0.9 % Sodium Chloride Flush 3 ML SYRINGE IVFLUSH ×3 (08:38→20:32)
--- NOTE | 2025-05-14 10:02 | HO.PM.IMPN ---
Subjective Subjective Date of Service: 05/14/25 Interval History: breathing improved, off O2 now Review of Systems Review of Systems: Yes all other systems are reviewed and are negative Physical Exam Vital Signs: Vital Signs: Last Vital Signs Temp 98.0 F 05/14/25 07:33 Pulse 71 05/14/25 07:36 Resp 16 05/14/25 07:36 BP 124/57 L 05/14/25 07:33 Pulse Ox 98 05/14/25 08:15 O2 Del Method Room Air 05/14/25 08:15 O2 Flow Rate 1 05/14/25 07:33 FiO2 60 05/10/25 07:20 BMI result Body Mass Index 28.5 Gen: in no acute distress HEENT: sclera anicteric, moist mucus membranes Neck: supple Lungs: diminished Heart: regular rate and rhythm, no murmurs Abd: soft, non-tender, non-distended Ext: no edema Skin: warm/well-perfused Neuro: alert and oriented x3, no focal findings Psych: appropriate affect Objective Data Active Medications Acetaminophen (Acetaminophen 325 Mg Tablet) 975 mg PO Q6H PRN PRN Reason: Pain, Mild 1-3,fever,headache Albuterol/Ipratropium (Albuterol/Iprat 2.5/0.5mg 3 Ml Ampul.Neb) 3 ml INHALE RQ4H WHILE AWAKE PRN PRN Reason: Shortness of Breath/Wheezing Last Admin: 05/09/25 03:34 Dose: 3 ml Documented By: NAJMA Atorvastatin Calcium (Atorvastatin Calcium 20 Mg Tablet) 20 mg PO DAILY [facility] Last Admin: 05/14/25 08:37 Dose: 20 mg Documented By: OZZIE Calcium Carbonate (Calcium Carbonate 750 Mg Tab.Chew) 750 mg PO Q4H PRN PRN Reason: Heartburn Ceftriaxone Sodium (Ceftriaxone Sodium 1 Gm Vial) 1 gm IVPUSH Q24H [facility] Stop: 05/15/25 01:00 Last Admin: 05/13/25 19:44 Dose: 1 gm Documented By: CHIKA Levalbuterol HCl 1.25 mg/ (Ipratropium [place] 0.5 mg) 0 mg INHALE RQ4H WHILE AWAKE [facility] Last Admin: 05/14/25 07:35 Dose: 1 dose Documented By: RAJIV Doxycycline Monohydrate (Doxycycline Monohydrate 100 Mg Capsule) 100 mg PO BID [facility] Stop: 05/14/25 23:00 Last Admin: 05/14/25 08:37 Dose: 100 mg Documented By: OZZIE Furosemide (Furosemide 40 Mg Tablet) 40 mg PO DAILY [facility]; Protocol On Hold: 05/10/25 18:24 Last Admin: 05/10/25 08:19 Dose: 40 mg Documented By: BRODarwin Levothyroxine Sodium (Levothyroxine Sodium 88 Mcg Tablet) 88 mcg PO DAILY@0600 [facility] Last Admin: 05/14/25 06:22 Dose: 88 mcg Documented By: CHIKA Magnesium Hydroxide (Milk Of Magnesia 30 Ml Oral.Susp) 30 ml PO DAILY PRN PRN Reason: Constipation Last Admin: 05/12/25 08:25 Dose: 30 ml Documented By: JACQUIE Melatonin (Melatonin 3 Mg Tablet) 6 mg PO BEDTIME PRN PRN Reason: Insomnia Last Admin: 05/08/25 01:41 Dose: 6 mg Documented By: REESE Metoprolol Tartrate (Metoprolol Tartrate 50 Mg Tablet) 50 mg PO BID [facility]; Protocol Last Admin: 05/14/25 08:36 Dose: 50 mg Documented By: OZZIE Ondansetron HCl (Ondansetron Hcl 4 Mg/2 Ml Vial) 4 mg IVPUSH Q8H PRN PRN Reason: Nausea and Vomiting Oxycodone HCl (Oxycodone Hcl Immed Release 5 Mg Tablet) 5 mg PO Q6H PRN PRN Reason: Pain, Severe (Pain Scale 7-10) Last Admin: 05/13/25 22:12 Dose: 5 mg Documented By: CHIKA Prednisone (Prednisone 10 Mg Tablet) 30 mg PO DAILY [facility] Last Admin: 05/14/25 08:36 Dose: 30 mg Documented By: OZZIE Rivaroxaban (Rivaroxaban 20 Mg Tablet) 20 mg PO DAILY@1700 [facility] Last Admin: 05/13/25 16:23 Dose: 20 mg Documented By: KRISTEN Senna/Docusate Sodium (Sennosides/Docusate Sodium Tablet) 2 tab PO BID [facility] Last Admin: 05/14/25 08:40 Dose: Not Given Documented By: HO.JERUSIA Non-Admin Reason: pt refused Sodium Chloride (0.9 % Sodium Chloride Flush 3 Ml Syringe) 3 ml IVFLUSH QSHIFT [facility] Last Admin: 05/14/25 08:38 Dose: 3 ml Documented By: OZZIE Theophylline (Theophylline Anhydrous Er 400 Mg Tab.Er.24h) 400 mg PO DAILY [facility] Last Admin: 05/14/25 08:37 Dose: 400 mg Documented By: OZZIE Tiotropium [place] (Tiotropium [place] 2.5 Mcg 1 Puff/2.5 Mcg Mist.Inhal) 2 puff INHALE RDAILY [facility] Last Admin: 05/14/25 07:58 Dose: 2 puff Documented By: RAJIV Vitamin D (Cholecalciferol (Vitamin D3) 25 Mcg Tablet) 25 mcg PO DAILY [facility] Last Admin: 05/14/25 08:37 Dose: 25 mcg Documented By: OZZIE Labs 05/11/25 06:05 05/12/25 05:53 Labs: Laboratory Results - last 24 hr 05/11/25 14:50 Ur Strep pneumoniae Ag Not Detected Assessment and Plan (1) Acute on chronic respiratory failure with hypoxia and hypercapnia: Status: Acute (2) Chronic obstructive pulmonary disease with (acute) exacerbation: Status: Acute Plan d8, 69yo M with COPD on 3L O2 at home, pAF on rivaroxaban, hypothyroidism presenting with dyspnea, admitted for COPD + pneumonia acute/chronic hypoxic/hypercapneic respiratory failure and sepsis due to COPD exacebation + PNA - goal O2 no greater than 92%; recheck home O2 eval - 05/07-05/14 ceftriaxone + doxycycline; PCT improved; MRSA negative; urinary antigens for Legionella pending, pneumococcus negative; changed to prednisone PO taper 05/11-, continue nebs - continue tiotropium, theophyilline - d/c'ed acetazolamide chronic leg edema, intermittent - prn PO furosemide hypoMg - repleted dilation of ascending aorta, 4.5 cm - Cardiology outpt follow-up AUD without withdrawal - d/c CIWA tobacco abuse - counseling, declines NRT hypothyroidism - continue LT4 pAF - continue rivaroxabam, changed diltiazem to metoprolol HLD - statin VTE ppx - rivaroxaban dispo - home with VNA but unsafe to discharge at this time due to home situation [sister sick with symptomatic Covid]; CM working on respite care but needed O2; repeat home O2 eval In my clinical judgment, the patient requires continued inpatient hospitalization for the following reasons: placement Total time managing care of this patient today: 35 minutes. Quality Stroke Does the patient have a stroke diagnosis?: No VTE Prior VTE?: No VTE Risk Level:: Medical - moderate - high VTE Device Contraindication: Treatment Not Indicated VTE Drug Contraindication: N/A - Med Ordered
[2025-05-14] MEDS: oxyCODONE HCl Immed Release 5 MG TABLET PO (20:33)
[2025-05-15] MEDS: oxyCODONE HCl Immed Release 5 MG TABLET PO ×2 (06:07→20:00)
[2025-05-15 07:47] VITALS: BP 129/60; PULSE 70; RESP 14; TEMP 36.4; O2SAT 95
--- NOTE | 2025-05-15 08:25 | P.PNIM_ITS ---
Subjective Subjective Date of Service: 05/15/25 Interval History: dyspnea improved Review of Systems Review of Systems: Yes all other systems are reviewed and are negative Physical Exam 2 Vital Signs: Vital Signs: Last Vital Signs Temp 97.6 F 05/15/25 07:47 Pulse 70 05/15/25 07:47 Resp 14 05/15/25 07:47 BP 129/60 05/15/25 07:47 Pulse Ox 95 05/15/25 07:47 O2 Del Method Room Air 05/15/25 07:47 O2 Flow Rate 1 05/14/25 07:33 FiO2 60 05/10/25 07:20 BMI result Body Mass Index 28.5 Gen: in no acute distress HEENT: sclera anicteric, moist mucus membranes Neck: supple Lungs: diminished Heart: regular rate and rhythm, no murmurs Abd: soft, non-tender, non-distended Ext: no edema Skin: warm/well-perfused Neuro: alert and oriented x3, no focal findings Psych: appropriate affect Objective Data Active Medications Acetaminophen (Acetaminophen 325 Mg Tablet) 975 mg PO Q6H PRN PRN Reason: Pain, Mild 1-3,fever,headache Albuterol/Ipratropium (Albuterol/Iprat 2.5/0.5mg 3 Ml Ampul.Neb) 3 ml INHALE RQ4H WHILE AWAKE PRN PRN Reason: Shortness of Breath/Wheezing Last Admin: 05/09/25 03:34 Dose: 3 ml Documented By: NAJMA Atorvastatin Calcium (Atorvastatin Calcium 20 Mg Tablet) 20 mg PO DAILY [facility] Last Admin: 05/14/25 08:37 Dose: 20 mg Documented By: OZZIE Calcium Carbonate (Calcium Carbonate 750 Mg Tab.Chew) 750 mg PO Q4H PRN PRN Reason: Heartburn Furosemide (Furosemide 40 Mg Tablet) 40 mg PO DAILY [facility]; Protocol On Hold: 05/10/25 18:24 Last Admin: 05/10/25 08:19 Dose: 40 mg Documented By: GLORIA Levothyroxine Sodium (Levothyroxine Sodium 88 Mcg Tablet) 88 mcg PO DAILY@0600 [facility] Last Admin: 05/15/25 06:04 Dose: 88 mcg Documented By: CHIKA Magnesium Hydroxide (Milk Of Magnesia 30 Ml Oral.Susp) 30 ml PO DAILY PRN PRN Reason: Constipation Last Admin: 05/12/25 08:25 Dose: 30 ml Documented By: JACQUIE Melatonin (Melatonin 3 Mg Tablet) 6 mg PO BEDTIME PRN PRN Reason: Insomnia Last Admin: 05/08/25 01:41 Dose: 6 mg Documented By: REESE Metoprolol Tartrate (Metoprolol Tartrate 50 Mg Tablet) 50 mg PO BID [facility]; Protocol Last Admin: 05/14/25 20:32 Dose: 50 mg Documented By: CHIKA Ondansetron HCl (Ondansetron Hcl 4 Mg/2 Ml Vial) 4 mg IVPUSH Q8H PRN PRN Reason: Nausea and Vomiting Oxycodone HCl (Oxycodone Hcl Immed Release 5 Mg Tablet) 5 mg PO Q6H PRN PRN Reason: Pain, Severe (Pain Scale 7-10) Last Admin: 05/15/25 06:07 Dose: 5 mg Documented By: CHIKA Prednisone (Prednisone 20 Mg Tablet) 20 mg PO DAILY [facility] Rivaroxaban (Rivaroxaban 20 Mg Tablet) 20 mg PO DAILY@1700 [facility] Last Admin: 05/14/25 16:17 Dose: 20 mg Documented By: OZZIE Senna/Docusate Sodium (Sennosides/Docusate Sodium Tablet) 2 tab PO BID [facility] Last Admin: 05/14/25 20:32 Dose: 2 tab Documented By: CHIKA Sodium Chloride (0.9 % Sodium Chloride Flush 3 Ml Syringe) 3 ml IVFLUSH QSHIFT [facility] Last Admin: 05/14/25 20:32 Dose: 3 ml Documented By: CHIKA Theophylline (Theophylline Anhydrous Er 400 Mg Tab.Er.24h) 400 mg PO DAILY [facility] Last Admin: 05/14/25 08:37 Dose: 400 mg Documented By: OZZIE Tiotropium [place] (Tiotropium [place] 2.5 Mcg 1 Puff/2.5 Mcg Mist.Inhal) 2 puff INHALE RDAILY [facility] Last Admin: 05/15/25 08:01 Dose: Not Given Documented By: RAJIV Non-Admin Reason: Patient Asleep Vitamin D (Cholecalciferol (Vitamin D3) 25 Mcg Tablet) 25 mcg PO DAILY [facility] Last Admin: 05/14/25 08:37 Dose: 25 mcg Documented By: OZZIE Labs 05/11/25 06:05 05/12/25 05:53 Assessment and Plan (1) Acute on chronic respiratory failure with hypoxia and hypercapnia: Status: Acute (2) Chronic obstructive pulmonary disease with (acute) exacerbation: Status: Acute Plan d9, 69yo M with COPD on 3L O2 at home, pAF on rivaroxaban, hypothyroidism presenting with dyspnea, admitted for COPD + pneumonia acute/chronic hypoxic/hypercapneic respiratory failure and sepsis due to COPD exacebation + PNA - goal O2 no greater than 92%; recheck home O2 eval- does not need home O2 - 05/07-05/14 ceftriaxone + doxycycline; PCT improved; MRSA negative; urinary antigens for Legionella pending, pneumococcus negative; changed to prednisone PO taper 05/11-, continue nebs - continue tiotropium, theophyilline - d/c'ed acetazolamide chronic leg edema, intermittent - prn PO furosemide hypoMg - repleted dilation of ascending aorta, 4.5 cm - Cardiology outpt follow-up AUD without withdrawal - d/c CIWA tobacco abuse - counseling, declines NRT hypothyroidism - continue LT4 pAF - continue rivaroxabam, changed diltiazem to metoprolol HLD - statin VTE ppx - rivaroxaban dispo - home with VNA but unsafe to discharge at this time due to home situation [sister sick with symptomatic Covid]; anticipate home tomorrow as pt' sister will be 10d out from her illness onset In my clinical judgment, the patient requires continued inpatient hospitalization for the following reasons: placement Total time managing care of this patient today: 35 minutes. Quality Stroke Does the patient have a stroke diagnosis?: No VTE Prior VTE?: No VTE Risk Level:: Medical - moderate - high VTE Device Contraindication: Treatment Not Indicated VTE Drug Contraindication: N/A - Med Ordered
[2025-05-15] MEDS: Theophylline Anhydrous ER 400 MG TAB.ER.24H PO (08:40)
[2025-05-15] MEDS: 0.9 % Sodium Chloride Flush 3 ML SYRINGE IVFLUSH ×3 (08:40→22:18)
[2025-05-15] MEDS: levalbuterol HCL 1.25 MG, Ipratropium Bromide 0.5 MG INHALE (11:10)
[2025-05-15] MEDS: Tiotropium Bromide 2.5 mcg 1 PUFF/2.5 MCG MIST.INHAL 2 PUFF INHALE (11:10)
[2025-05-15 11:12] VITALS: PULSE 65; RESP 14; O2SAT 93
[2025-05-15 15:15] VITALS: BP 120/70; PULSE 77; RESP 16; TEMP 36.8; O2SAT 97
[2025-05-15 19:45] VITALS: BP 122/58; PULSE 82; RESP 18; TEMP 36.2; O2SAT 95
[2025-05-16] MEDS: oxyCODONE HCl Immed Release 5 MG TABLET PO (02:00)
[2025-05-16 03:31] VITALS: BP 108/53; PULSE 66; RESP 18; TEMP 36.3; O2SAT 93
[2025-05-16 07:09] VITALS: BP 135/67; PULSE 71; RESP 16; TEMP 36.4; O2SAT 97
[2025-05-16] MEDS: Tiotropium Bromide 2.5 mcg 1 PUFF/2.5 MCG MIST.INHAL 2 PUFF INHALE (08:27)
[2025-05-16 08:29] VITALS: PULSE 64; O2SAT 96
--- NOTE | 2025-05-16 08:30 | W.MHC.F2F ---
Service Date Service Date: 05/16/25 Encounter Date of encounter: 05/16/25 Reasons for Services Signs and symptoms assessed: attach PT eval Reason for half-way: medication management and medication treatment Reason for physical therapy: home safety and mobility, therapeutic exercises, gait/transfer training, assess need for DME, ADL training, energy conservation and other (pulmonary rehab) MD Overseeing Care: Artie Lentz Homebound: Leaving the home is medically contraindicated at this time without the asist of a device and/or another person due th the listed conditions above and below. Reason homebound: shortness of breath with minimal effort and weakness related to hospital stay Certification: Based on the above findings, I certify that this patient is confined to the home and needs intermittent half-way care, physical therapy and/or speech therapy, or continues to need occupational therapy. The patient is under my care, and I have initiated the establishment of the plan of care. The patient will be followed by a physician who will periodically review the plan of care. Time Spent With Patient Time: Total time managing care of this patient today ____ minutes.
--- NOTE | 2025-05-16 08:34 | P.DS_ITS ---
DS: Providers Provider Date of Service: 05/16/25 Date of admission: 05/07/25 23:59 Date of discharge: 05/16/25 Primary care physician: Artie Lentz NP DS: Diagnosis Discharge Diagnosis (1) Acute on chronic respiratory failure with hypoxia and hypercapnia: Status: Acute (2) Chronic obstructive pulmonary disease with (acute) exacerbation: Status: Acute (3) Pneumonia: Status: Acute (4) Atrial fibrillation with RVR: Status: Acute (5) Aortic root dilation: Status: Acute DS: Summary Hospital Course Hospital Course: From the history and physical by the admitting hospitalist, Nathaniel MEJIA 05/07/25: Pt is a 69 yo male with a pmhx signficant for 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 Visual reports this for the past 3-4 days. Initially he was found to be saturating at 75% on room air, escalated to a non-rebreather than OxyMask with improvement. The patient reports wheezing, fever, chills and recent sick contacts. He has had bilateral pedal edema and takes Lasix daily for this. He denies any nausea, vomiting, abdominal pain or urinary symptoms. Of note the triage note mentions that the patient came in for back pain. The patient states this is untrue and he did not come in for back pain but did develop back pain after spending a long period of time on the stretcher in the ED. 69yo M with COPD on 3L O2 at home, pAF on rivaroxaban, hypothyroidism presenting with dyspnea, admitted for COPD + pneumonia. Hospital course by problem: acute/chronic hypoxic/hypercapneic respiratory failure and sepsis due to COPD exacebation + PNA - gradually weaned off oxygen; goal O2 no greater than 92%; rechecked home O2 eval- does not need home O2 - 05/07-05/14 ceftriaxone + doxycycline; PCT improved; MRSA negative; urinary antigens for Legionella and pneumococcus negative - treated with methylprednisolone and changed to prednisone PO taper to complete upon discharge - continue tiotropium, theophylline, nebs - received a few doses of acetazolamide - discharged home with VNA services [declined recommendation for STR/IPR] - should follow up with Pulmonology in 2 weeks hypoMg - repleted dilation of ascending aorta, 4.5 cm - Cardiology outpt follow-up tobacco abuse - counseling, declines NRT pAF - continue rivaroxabam, changed diltiazem to metoprolol Time Attestation Discharge Coordination Time (in mins): 35 Quality: Safe Use of Opioids Does Pt have an Active Cancer Diagnosis on the Problem List?: No Quality: Stroke Does the patient have a stroke diagnosis?: No Physical Exam Vital Signs: Vital Signs: Last Vital Signs Temp 97.5 F 05/16/25 07:09 Pulse 64 05/16/25 08:29 Resp 16 05/16/25 07:09 BP 135/67 05/16/25 07:09 Pulse Ox 97 05/16/25 07:09 O2 Del Method Room Air 05/16/25 07:09 O2 Flow Rate 1 05/14/25 07:33 FiO2 60 05/10/25 07:20 BMI result Body Mass Index 28.5 Gen: in no acute distress HEENT: sclera anicteric, moist mucus membranes Neck: supple Lungs: diminished Heart: regular rate and rhythm, no murmurs Abd: soft, non-tender, non-distended Ext: no edema Skin: warm/well-perfused Neuro: alert and oriented x3, no focal findings Psych: appropriate affect DS: Data Data Completed and Pending Completed studies during hospitalization [Text1]: Laboratory Results WBC 12.9 X10*3/uL (4.8-10.8) H 05/11/25 06:05 RBC 3.80 X10*6/uL (4.60-5.80) L 05/11/25 06:05 Hgb 11.4 g/dl (14.0-18.0) L 05/11/25 06:05 Hct 36.1 % (42.0-52.0) L 05/11/25 06:05 MCV 95.0 fL (80.0-98.0) 05/11/25 06:05 MCH 30.0 pg (27.0-33.0) 05/11/25 06:05 MCHC 31.6 g/dl (31.0-36.0) 05/11/25 06:05 RDW 13.6 % (11.0-16.0) 05/11/25 06:05 Plt Count 208 X10*3/uL (160-400) 05/11/25 06:05 MPV 12.6 fL (9.4-12.4) H 05/11/25 06:05 Immature Gran % (Auto) 1.5 % (0.0-0.4) H 05/10/25 06:13 Neut % (Auto) 91.2 % (45-73) H 05/10/25 06:13 Lymph % (Auto) 4.4 % (20-40) L 05/10/25 06:13 Jefferson % (Auto) 2.7 % (2-11) 05/10/25 06:13 Eos % (Auto) 0.0 % (0-4) 05/10/25 06:13 Baso % (Auto) 0.2 % (0-2) 05/10/25 06:13 Lymph # (Auto) 0.6 X10*3/uL (1.2-4.9) L 05/10/25 06:13 Jefferson # (Auto) 0.4 X10*3/uL (0.1-1.2) 05/10/25 06:13 Eos # (Auto) 0.0 X10*3/uL (0.0-0.4) 05/10/25 06:13 Baso # (Auto) 0.0 X10*3/uL (0.0-0.2) 05/10/25 06:13 Abs Immat Gran (auto) 0.22 X10*3/uL (0.00-0.03) H 05/10/25 06:13 Absolute Neuts (auto) 12.9 x10*3/uL (2.0-8.3) H 05/10/25 06:13 Absolute Nucleated RBC 0.000 X10*3/uL (0.0-0.012) 05/11/25 06:05 Nucleated RBC % (auto) 0.0 /100WBC (0.0-0.2) 05/11/25 06:05 Smear Tech's Comments VERIFIED 05/10/25 06:13 Hold Purple Top SEE NOTE 05/12/25 05:53 VBG pH 7.36 (7.32-7.43) 05/12/25 06:02 VBG pCO2 70 mmHg 05/12/25 06:02 VBG pO2 62 mmHg 05/12/25 06:02 VBG HCO3 39 mmol/L (22-26) H 05/12/25 06:02 VBG O2 Saturation 85.0 % 05/12/25 06:02 VBG Base Excess 11.5 mmol/L 05/12/25 06:02 Sodium 140 mmol/L (135-145) 05/12/25 05:53 Potassium 3.3 mmol/L (3.3-5.1) 05/12/25 05:53 Chloride 96 mmol/L (96-108) 05/12/25 05:53 Carbon Dioxide 35 mmol/L (22-29) H 05/12/25 05:53 Anion Gap 12 (12-20) 05/12/25 05:53 BUN 31 mg/dL (9-16) H 05/12/25 05:53 Creatinine 0.98 mg/dL (0.5-1.4) 05/12/25 05:53 Estim Creat Clear Calc 75.7 05/12/25 05:53 Estimated GFR > 60 05/12/25 05:53 Random Glucose 87 mg/dL (60-115) 05/12/25 05:53 Calcium 9.3 mg/dL (8.4-10.2) 05/12/25 05:53 Magnesium 1.9 mg/dL (1.6-2.6) 05/12/25 05:53 Total Bilirubin 0.4 mg/dL (0.0-1.0) 05/07/25 16:52 AST 46 U/L (5-37) H 05/07/25 16:52 ALT 23 U/L (0-40) 05/07/25 16:52 Alkaline Phosphatase 124 U/L (39-117) H 05/07/25 16:52 Troponin I High Sens 15.5 ng/L (<3.5-35.0) D 05/07/25 16:52 B-Natriuretic Peptide 44 pg/mL (<100) 05/07/25 16:52 Total Protein 6.5 g/dL (6.5-8.0) 05/07/25 16:52 Albumin 3.7 g/dL (3.5-5.0) 05/07/25 16:52 Procalcitonin 1.94 ng/mL 05/12/25 05:53 Nasal Screen MRSA (PCR) NEGATIVE (Negative) 05/12/25 09:04 Nasal S. aureus Screen NEGATIVE (Negative) 05/12/25 09:04 Nasal MRSA/S.aureus Interp SEE NOTE 05/12/25 09:04 Ethyl Alcohol 70 mg/dL 05/07/25 16:52 Respiratory Panel Rodriguez See Note 05/08/25 09:35 Adenovirus (Rapid PCR) Not Detected (Not Detect.) 05/08/25 09:35 B.pert (TEM-PCR) Not Detected (Not Detect.) 05/08/25 09:35 B.parapertussis DNA PCR Not Detected (Not Detect.) 05/08/25 09:35 C. pneumoniae DNA (PCR) Not Detected (Not Detect.) 05/08/25 09:35 Coronavirus OC43 (PCR) Not Detected (Not Detect.) 05/08/25 09:35 Coronavirus HKU1 (PCR) Not Detected (Not Detect.) 05/08/25 09:35 Coronavirus 229E (PCR) Not Detected (Not Detect.) 05/08/25 09:35 Coronavirus NL63 (PCR) Not Detected (Not Detect.) 05/08/25 09:35 Human Metapneumovir PCR Not Detected (Not Detect.) 05/08/25 09:35 Influenza A (RT-PCR) Not Detected (Not Detect.) 05/08/25 09:35 Influenza A (H1) PCR Not Detected (Not Detect.) 05/08/25 09:35 Influ A (H1/09) PCR Not Detected (Not Detect.) 05/08/25 09:35 Influenza A (H3) PCR Not Detected (Not Detect.) 05/08/25 09:35 Influenza Type A (PCR) NEGATIVE (Negative) 05/07/25 16:52 Influenza B (RT-PCR) Not Detected (Not Detect.) 05/08/25 09:35 Influenza Type B (PCR) NEGATIVE (Negative) 05/07/25 16:52 Ur L.pneumophila Ag Not Detected (Not Detected) 05/11/25 14:50 M. pneumoniae (PCR) Not Detected (Not Detect.) 05/08/25 09:35 Parainfluenza 1 (PCR) Not Detected (Not Detect.) 05/08/25 09:35 Parainfluenza 2 (PCR) Not Detected (Not Detect.) 05/08/25 09:35 Parainfluenza 3 (PCR) Not Detected (Not Detect.) 05/08/25 09:35 Parainfluenza 4 (PCR) Not Detected (Not Detect.) 05/08/25 09:35 RSV (PCR) Not Detected (Not Detect.) 05/08/25 09:35 RSV RNA Qual (PCR) NEGATIVE (Negative) 05/07/25 16:52 Entero/Rhino (PCR) Not Detected (Not Detect.) 05/08/25 09:35 SARS-CoV-2 RNA (RT-PCR) Not Detected (Not Detect.) 05/08/25 09:35 Ur Strep pneumoniae Ag Not Detected (Not Detected) 05/11/25 14:50 Discharge Plan Discharge Anticipated Discharge Date/Time: 05/16/25 10:31 Patient Disposition: Home Health Service Discharge Diagnosis: pneumonia, COPD Referrals: Salvador Ramos MD [Physician, Pulmonology] - 2 Weeks Artie Lentz NP [Primary Care Provider, Internal Medicine] - 1 Week [facility] [Provider Group] - 1 Month Discharge Medications: New metoprolol tartrate 50 mg Tablet 50 mg PO BID Qty: 60 0RF Protocol: Hold for SBP/HR < HOLD for SBP < : 90 HOLD for HR < : 60 prednisone 10 mg tablet See Rx Instructions .ROUTE .COMPLEX Qty: 7 0RF Rx Instructions: 20 mg daily x 2 days then 10 mg daily x 2 days then 5 mg daily x 2 days Continued albuterol sulfate 2.5 mg /3 mL (0.083 %) Solution For Nebulization 2.5 mg inhalation Q6H PRN (Reason: breathing) levothyroxine 88 mcg Tablet 88 mcg PO DAILY@0600 albuterol sulfate 90 mcg/actuation Hfa Aerosol Inhaler 2 puff INHALATION Q4H PRN (Reason: breathing) Xarelto 20 mg tablet 20 mg PO DAILY@1700 theophylline 400 mg tablet extended release 24 hr 400 mg PO DAILY Qty: 30 6RF atorvastatin 40 mg tablet 20 mg PO DAILY cholecalciferol (vitamin D3) 25 mcg (1,000 unit) tablet 25 mcg PO DAILY fluticasone propion-salmeterol 250-50 mcg/dose blister with device 1 inh inhalation BID tiotropium bromide 2.5 mcg/actuation mist 2 puff inhalation DAILY furosemide 40 mg tablet 40 mg PO DAILY Qty: 30 6RF Discontinued diltiazem HCl [Tiazac] 180 mg Capsule,Extended Release 24 Hr 360 mg PO DAILY Discharge Orders: Discharge Order (Routine); Ordered 05/16/25 Ordered By: Shyam Palma Diet: Advance to usual diet Activity on Discharge: As tolerated Stand Alone Forms: Patient Portal Discharge page Print Language: Wolof Care Plan Goals: respiratory health Health Concerns: pneumonia, COPD Plan of Treatment: home with VNA completed antibiotics in hospital prednisone taper: 20 mg daily x 2 days then 10 mg daily x 2 days then 5 mg daily x 2 days continue nebs, inhalers follow up with facility coordinator in 2 weeks change diltiazem to metoprolol tartrate 50 mg twice daily follow up with [facility] Cardiology in 1 month for monitoring of aortic root dilation Please follow up with your primary care doctor within 1 week. Return to the hospital if you experience recurrent or worsening symptoms. Assessment: See Discharge Summary.
[2025-05-16] MEDS: Theophylline Anhydrous ER 400 MG TAB.ER.24H PO (08:35)
[2025-05-16] MEDS: 0.9 % Sodium Chloride Flush 3 ML SYRINGE IVFLUSH (08:35)
[2025-05-16 08:36] VITALS: BP 135/67; PULSE 64
[2025-05-16 09:41] VITALS: BP 128/68; PULSE 85; RESP 18; TEMP 36.4; O2SAT 97
--- NOTE | 2025-05-16 09:58 | MHC.CM.PN ---
Patient medically cleared for dc home w/ new [facility] services. Patient's friend will transport home. RN aware.
== END 2025-05-16 10:51 | disposition home health service (06) | DRG 871 ==
LOC: HO.ED 18:20 → HO.EDOVER 05-08 00:27 → HO.IMC 05-08 09:11 → HO.S3 05-13 15:08
PROVIDERS: Student in an Organized Health Care Education/Training Program; Admitting Provider Physician Assistant; Emergency Provider Internal Medicine; PCP Nurse Practitioner Family; Visit Provider Family Medicine
DX: A41.9 Sepsis, unspecified organism (principal); J18.9 Pneumonia, unspecified organism; J96.21 Acute and chronic respiratory failure with hypoxia; J96.22 Acute and chronic respiratory failure with hypercapnia; J44.0 Chronic obstructive pulmonary disease with (acute) lower respiratory infection; J44.1 Chronic obstructive pulmonary disease with (acute) exacerbation; E03.9 Hypothyroidism, unspecified; E66.811 Obesity, class 1; Z66 Do not resuscitate; E78.5 Hyperlipidemia, unspecified; E83.42 Hypomagnesemia; R60.0 Localized edema; I77.810 Thoracic aortic ectasia; F10.90 Alcohol use, unspecified, uncomplicated; Z71.3 Dietary counseling and surveillance; Z68.30 Body mass index [BMI] 30.0-30.9, adult; I48.0 Paroxysmal atrial fibrillation; Z20.822 Contact with and (suspected) exposure to COVID-19; Z99.81 Dependence on supplemental oxygen; Z87.891 Personal history of nicotine dependence; Z79.01 Long term (current) use of anticoagulants; Z79.51 Long term (current) use of inhaled steroids; Z79.890 Hormone replacement therapy; Z79.899 Other long term (current) drug therapy
CPT/HCPCS: 36415; 71045; 71275; 72100; 80048; 80053; 80307; 82803; 83735; 83880; 84145; 84484; 85025; 85027; 87449; 87633; 87637; 87640; 87641; 87899; 93005; 93306; 94640; 94660; 94799; 97116; 97162; 99285; J0696; J1120; J1163; J1271; J1938; J2919; J3475; Q9957; Q9967

== ENCOUNTER → 2025-05-07 16:33 | Outpatient (BNV) | payer OTHER, SELFPAY | PROVIDERS: Admitting Provider Physician Assistant; Emergency Provider Internal Medicine; PCP Nurse Practitioner Family; Visit Provider Internal Medicine Cardiovascular Disease | DX: I49.1 Atrial premature depolarization (principal); R00.0 Tachycardia, unspecified | CPT/HCPCS: 93010 ==

== ENCOUNTER → 2025-05-07 16:33 | Outpatient (BNV) | payer OTHER, SELFPAY | PROVIDERS: Emergency Provider Internal Medicine; Visit Provider Radiology Diagnostic Radiology | DX: M47.816 Spondylosis without myelopathy or radiculopathy, lumbar region (principal); R06.00 Dyspnea, unspecified | CPT/HCPCS: 71045; 72100 ==

== ENCOUNTER 2025-05-07 23:59 | Outpatient (BNV) | payer OTHER, SELFPAY | END 2025-05-09 07:00 | PROVIDERS: Admitting Provider Physician Assistant; Emergency Provider Internal Medicine; PCP Nurse Practitioner Family; Visit Provider Internal Medicine | DX: I71.21 Aneurysm of the ascending aorta, without rupture (principal); I27.20 Pulmonary hypertension, unspecified | CPT/HCPCS: 93306 ==

== ENCOUNTER 2025-05-07 23:59 | Outpatient (BNV) | payer OTHER, SELFPAY | END 2025-05-08 01:00 | PROVIDERS: Admitting Provider Physician Assistant; Emergency Provider Internal Medicine; PCP Nurse Practitioner Family; Visit Provider Radiology Diagnostic Radiology | DX: J98.11 Atelectasis (principal) | CPT/HCPCS: 71275 ==

== ENCOUNTER → 2025-05-07 23:59 | Outpatient (BNV) | payer OTHER, SELFPAY | PROVIDERS: Admitting Provider Physician Assistant; Emergency Provider Internal Medicine; PCP Nurse Practitioner Family; Visit Provider Physician Assistant | DX: J96.21 Acute and chronic respiratory failure with hypoxia (principal); J96.22 Acute and chronic respiratory failure with hypercapnia; J44.1 Chronic obstructive pulmonary disease with (acute) exacerbation | CPT/HCPCS: 99223; 99232; 99233; 99499 ==

== ENCOUNTER 2025-05-31 09:46 | Outpatient (AMB) | payer OTHER, SELFPAY ==
--- OUTSIDE RECORDS SUMMARY | 2025-02-23 05:04 | XMS_ITS ---
Author Name [facility] [facility] [place] [facility] [facility] [place] Address [address] [place] [address] Care Team Providers Care Stage Electrician Helper Name Role Phone SHERLYN LENTZ Primary Care Provider [facility] Insurance Providers: All historical and current [...] PART B Apr 05, 2020 PART B [id number] NIKOLEDEEJAYMary JoCOCO PATIENT MEDICARE (WNR) MEDICARE (M) PART A Mar 06, 2019 PART A [id number] NIKOLEDEEJAYMary JoCOCO PATIENT Selected Encounter This section includes the information on record at [place] for the Encounter. Date/Time Encounter Type Encounter Description Reason Provider Source February 23, 2025 09:04 AM [facility] OL DIG ASSMT&MGMT 5-10 CLINICAL PHARMACY ICD-10-CM Z79.01 [facility] (current) use of anticoagulants ROB GAUTHIER Encounter Template Text not used by [place] Assessments - Encounter Diagnoses This section includes the primary and secondary diagnoses documented for the Encounter. Date/Time Primary/Secondary Diagnosis Diagnosis Name Provider Source February 23, 2025 09:11 AM PRIMARY [facility] (current) use of anticoagulants ROB GAUTHIER [facility] February 23, 2025 09:11 AM SECONDARY Unspecified atrial fibrillation ROB GAUTHIER [facility] Plan of Treatment: Future Appointments (+ 6 months) and Future Tests (+/- 45 days) The Plan of Treatment section includes future care activities for the patient from all [place] [facility]. This section includes future appointments and future orders which are active, pending or scheduled. Future Appointments This section includes appointments that were scheduled to occur 6 months from the date of the Encounter, up to a maximum of 20 appointments. The data comes from all [facility]. Appointment Date/Time Appointment Type Appointme nt Facility Name March 02, 2025 11:00 AM [facility] Mar 15, 2025 07:45 AM [facility] Mar 31, 2025 01:45 PM [facility] May 12, 2025 08:00 AM [facility] Jun 30, 2025 09:30 AM [facility] Jul 26, 2025 09:00 AM AMBULATORY MEDICINE [facility] Active, Pending, and Scheduled Orders This section includes a listing of several types of active, pending, and scheduled orders, including clinic medications orders, diagnostic test orders, procedure orders and consult orders; where the start date of the order is 45 days before the date of the Encounter or 45 days after the date of theEncounter. The data comes from all [facility]. Test Date/Time Test Type Test Details Facility Name Jan 20, 2025 12:00 AM Laboratory - Chemi stry Order BASIC METABOLIC PANEL (non-fasting) BLOOD (SST-SERUM) SP [facility] Jan 24, 2025 03:22 PM Consult Order COMMUNITY CARE-OPHTHALMOLOGY Cons Italian Teacher's Choice [facility] February 10, 2025 12:00 AM Imaging - General Radiology Order OUTSIDE MRI BRAIN W/WO CONTRAST [facility] [place] [facility] Social History: Smoking Status (Most current) and [...] AM VA-TOBACCO USE ОЛЕГ RY DAY CIGARETTES [place] [facility] [place] [facility] Tobacco Use History This section includes a history of the smoking, or tobacco-related health factors, that were collected on or before the date of the Encounter. The data comes from the [place] facility where the Encounter took place. Date/Time Smoking Status/Tobacco Use Comment F acility Sep 14, 2024 08:00 AM VA-TOBACCO SCREEN FOLLOW-UP [facility] [place] [facility] Sep 14, 2024 08:00 AM VA-TOBACCO USE ADVICE [facility] [place] [facility] Sep 14, 2024 08:00 AM VA-TOBACCO USE TELEVISION SCHEDULE COORDINATOR NO [facility] [place] [facility] Sep 14, 2024 08:00 AM VA-TOBACCO USE ОЛЕГ RY DAY CIGARETTES [facility] [place] [facility] Sep 14, 2024 08:00 AM VA-TOBACCO USE MED NO [facility] [place] [facility] Sep 04, 2023 01:14 PM VA-TOBACCO USE 30 YEARS OR MORE [facility] [place] [facility] Sep 04, 2023 01:14 PM VA-TOBACCO USE ADVICE [facility] [place] [facility] Sep 04, 2023 01:14 PM VA-TOBACCO USE TELEVISION SCHEDULE COORDINATOR NO [facility] [place] [facility] Sep 04, 2023 01:14 PM VA-TOBACCO USE MED NO [facility] [place] [facility] Sep 04, 2023 01:14 PM VA-TOBACCO USE WI 30 MIN OF WAKEUP [facility] [place] [facility] Sep 04, 2023 01:14 PM VA-TOBACCO USER EVERY DAY [facility] [place] [facility] Oct 01, 2022 09:45 AM VA-TOBACCO DOESNT USE WI 30 MIN WAKEUP [facility] [place] [facility] Oct 01, 2022 09:45 AM VA-TOBACCO USE 30 YEARS OR MORE [facility] [place] [facility] Oct 01, 2022 09:45 AM VA-TOBACCO USE ADVICE [facility] [place] [facility] [place] Oct 01, 2022 09:45 AM VA-TOBACCO USE TELEVISION SCHEDULE COORDINATOR NO [facility] [place] [facility] [place] Oct 01, 2022 09:45 AM VA-TOBACCO USE MED NO [facility] [place] [facility] Oct 01, 2022 09:45 AM VA-TOBACCO USER EVERY DAY [facility] [place] [facility] [place] [place] Sep 07, 2021 10:30 AM VA-TOBACCO USE 30 YEARS OR MORE [facility] [place] [facility] [place] [place] Sep 07, 2021 10:30 AM VA-TOBACCO USE ADVICE [facility] [place] [facility] [place] [place] Sep 07, 2021 10:30 AM VA-TOBACCO USE TELEVISION SCHEDULE COORDINATOR NO [facility] [place] [facility] [place] Sep 07, 2021 10:30 AM VA-TOBACCO USE MED NO [facility] [place] [facility] [place] [place] Sep 07, 2021 10:30 AM VA-TOBACCO USE [place] 30 MIN OF WAKEUP [facility] [place] [facility] [place] [place] Sep 07, 2021 10:30 AM VA-TOBACCO USER EVERY DAY [facility] [place] [facility] Jun 08, 2020 09:00 AM VA-TOBACCO USE 30 YEARS OR MORE [facility] [place] [facility] Jun 08, 2020 09:00 AM VA-TOBACCO USE ADVICE [facility] [place] [facility] Jun 08, 2020 09:00 AM VA-TOBACCO USE TELEVISION SCHEDULE COORDINATOR NO [facility] [place] [facility] Jun 08, 2020 09:00 AM VA-TOBACCO USE MED NO [facility] [place] [facility] Jun 08, 2020 09:00 AM VA-TOBACCO USE [place] 30 MIN OF WAKEUP [facility] [place] [facility] Jun 08, 2020 09:00 AM VA-TOBACCO USER EVERY DAY [facility] [place] [facility] Feb 01, 2019 02:27 PM VA-TOBACCO USE 30 YEARS OR MORE [facility] Feb 01, 2019 02:27 PM VA-TOBACCO USE ADVICE [facility] Feb 01, 2019 02:27 PM VA-TOBACCO USE TELEVISION SCHEDULE COORDINATOR [facility] Feb 01, 2019 02:27 PM VA-TOBACCO USE MED NO [facility] Feb 01, 2019 02:27 PM VA-TOBACCO USE WI 30 MIN OF WAKEUP [facility] Feb 01, 2019 02:27 PM VA-TOBACCO USER EVERY DAY [facility] Apr 02, 2018 02:47 PM [facility] Apr 02, 2018 02:47 PM V1-PT DECLINES REF TO TOBACCO CESS PRGM [facility] Apr 02, 2018 02:47 PM V1-PT DECLINES TOB ACCO CESSATION MEDS [facility] Apr 02, 2018 02:47 PM V1-PT THINKING ABO UT QUIT TOBACCO USE [facility] Radiology Reports: +/- 30 days of [...] the Encounter. The data comes from all [facility] facilities. Date/Time Radiology Report Provider Source Feb 02, 2025 08:57 AM MRI BRAIN W/WO CONTRAST: KINGSTON RENDON [id number] -[id number] M Exm Date: FEB 02, 2025@08:57 Req Phys: JEEVAN RILEY Loc: [facility] ENDOCRINE 1 (Req'g Loc) Img Loc: [facility] MRI Service: Unknown [facility] [place] [address] (Case [id number] COMPLETE) MRI BRAIN W/WO CONTRAST (MRI Detailed) CPT:95215 Contrast Media : Gadolinium Reason for Study: Pituitary adenoma, worsening vision Clinical History: PLEASE NOTE If patient is claustrophobic consider ordering anti-anxiety medication prior to MRI. Safety Assessment: You must answer ALL questions or this questionnaire is not captured. Ordering provider, phone number and beeper:Hang Maurer RN [phone] Weight: 205 lb [92.99 kg] (01/20/2025 [...] 02, 2025 Date Verified: FEB 02, 2025 Order Checker Packer Processer E-Sig:/ES/ASHANTI ROMERO Report: PITUITARY MRI W/WO: CLINICAL INDICATION: Reason for Study: Pituitary adenoma, worsening vision PLEASE NOTE If patient is claustrophobic consider ordering anti-anxiety medication prior to MRI. Safety Assessment: You must answer ALL questions or this questionnaire is not captured. Ordering provider, phone number and beeper:Hang Maurer RN [phone] Weight: 205 l REASON FOR STUDY: [...] the junction of the adeno and neurohypophysis. [place] gland: Normal volume and positioned within the [...] Primary Interpreting Staff: ASHANTI ROMERO, Staff Physician (Order Checker Packer Processer) /ASHANTI CODY [facility] Feb 02, 2025 08:28 AM BONE DENSITY DXA: JUSTICEKINGSTON Jarrod [id number] -[id number] M Ex Date: FEB 02, 2025@08:28 Req Phys: JEEVAN RILEY Loc: [facility] ENDOCRINE MD 1 (Req'g Loc) Img Loc: [facility] 1 Service: Unknown [place] [address] (Case [id number] COMPLETE) BONE DENSITY AXIAL-DXA (RAD Detailed) CPT:72793 Reason for Study: osteoporosis Clinical History: Report Status: Verified Date Reported: FEB 02, 2025 Date Verified: FEB 02, 2025 Order Checker Packer Processer E-Sig:/ES/AUSTIN GARCIA Report: DXA BONE DENSITY AXIAL: [...] MODEL: The exam was performed on a [employer] A system at [place], [place]. YOUNG AGE Bone Mineral ADULT [...] Primary Interpreting Staff: AUSTIN GARCIA Staff Physician (Order Checker Packer Processer) /AUSTIN MORRIS [facility] [place] [facility] Encounter Notes: All associated encounter notes This section contains the clinical notes associated to the Encounter. Date/Time Encounter Note(s) Provider Source February 23, 2025 09:04 AM PHARMACY MEDICATIO N MGT NOTE: LOCAL TITLE: PHARMACY ANTICOAGULATION NOTE STANDARD TITLE: PHARMACY MEDICATION MGT NOTE DATE OF NOTE: FEBRUARY 23, 2025@09:04 ENTRY DATE: FEBRUARY 23, 2025@09:04:27 AUTHOR: ROB GAUTHIER EXP COSIGNER: URGENCY: STATUS: COMPLETED ANTICOAGULATION DOAC MONITORING NOTE SUBJECTIVE: Patient identified through the DOAC population Management Tool based on the following criteria: [ ] Dosing Issue [ X ] Critical Drug Interaction [ ] Cancer Treatment [ ] Active NSAID [ ] Labs Overdue [ ] Prosthetic Valve Replacement [ X ] Notable Lab Value [ ] Overdue for Refill [ ] Other: Comments: [place] flagged by DOAC dashboard for the following reasons: >2 gram HGB drop while on DOAC and notable drug interaction between rivaroxaban and naproxen. OBJECTIVE: Indication for anticoagulation: [ X ] Atrial fibrilation [ X ] Atrial flutter [ ] VTE (DVT or PE) [ ] Post-op DVT prophylaxis [ ] Other: Most recent lab values include the following: HGB: HGB Collection DT Specimen Test Name Result Units Ref Range 09/06/2024 09:51 BLOOD HGB 17.9 H g/dL 12.8 - 17 PLT: WBC Collection DT Specimen Test Name Result Units Ref Range 09/06/2024 09:51 BLOOD WBC 7.38 K/cmm 4.50 - 11.00 Liver Function Tests Collection DT Spec AST ALT ALK ROSSY ALBUMIN T BILI T. PROT 09/06/2024 09:51 SERUM 38 H 29 116 3.9 1.2 7.1 HEIGHT: 68 in [172.7 cm] (01/20/2025 07:59) WEIGHT: 205 lb [92.99 kg] (01/20/2025 07:59) BMI: BMI: 31.2 CREATININE-EGFR 01/17/25 09:54 1.46 H 09/06/24 09:52 0.89 07/14/24 09:10 0.91 CRCL IBW: CrCl(est): 49.7 mL/min (Creat:1.46 01/17/25) CRCL ACT: 61.16 mL/min CRCL ADJ: 49.7 mL/min (4/14/25) ASSESSMENT: Per [facility] chart review, danial previously on apixaban and had allergic reaction, now on rivaroxaban. Pt's most recent hgb from 01/04/25 (non-VA) was 12.6, a >2 hgb drop from previous HgB of 17.9 on 09/06/2024. Will notify PCP of HgB trend and will defer to PCP to monitor CBC and perform periodic risk vs benefit evaluation of continuing anticoagulation. Danial also flagged by DOAC dashboard for DDI with naproxen and rivaroxaban. Danial was previously counseled on this and encouraged to use APAP. Note Naproxen RX last filled 09/06/24 for 60 tablets (has 10 refills remaining). Concurrent use of rivaroxaban with NSAIDs or salicylates may result in unwanted bleeding episodes. Monitor patients receiving concurrent therapy for signs of blood loss, including decreased hemoglobin, hematocrit, fecal occult blood, and/or decreased blood pressure and promptly evaluate patients with any symptoms. Instruct patients to report any signs and symptoms of bleeding, such as unusual bleeding from the gums or nose; unusual bruising; red or black, tarry stools; red, pink or dark brown urine; acute abdominal or joint pain and/or swelling. Action required? [ X ] Yes [ ] No Comments: Note pt is passively followed by [facility] through DOAC dashboard. If changes are made, please direct patient accordingly. PLAN: [ ] No action required, dismiss flag [ X ] Will intervene: [ ] Patient education via phone/letter [ ] Schedule phone/[id number] follow up [ ] Lab ordered [ ] Discontinue interacting medication [ ] Discontinue DOAC [ ] Change to alternative DOAC [ ] Change DOAC dose [ X ] Notify PCP [ ] Consult cardiology/hematology [ ] Other: Time spent: 5 minutes /lolly/ ROB GAUTHIER PHARMD, BCPS CLINICAL PHARMACIST PRACTITIONER Signed: 02/23/2025 09:11 Receipt Acknowledged By: 02/24/2025 08:14 /lolly/ Sherlyn Lentz DNP, TELECOMMUNICATIONS REPAIRER-BC, CNL Primary Care Nurse Practitioner ROB GAUTHIER [facility]
--- OUTSIDE RECORDS SUMMARY | 2025-03-02 07:00 | XMS_ITS ---
Author Name [facility] [place] Address [address] [place] [address] Care Team Providers Care Express Clerk Name Role Phone SHERLYN BRADLEY [facility] Insurance Providers: All historical and current [...] PART B Apr 05, 2020 PART B [id number] MIGUELITOCOCO FRANKLINNDER PATIENT MEDICARE (WNR) MEDICARE (M) PART A Mar 06, 2019 PART A [id number] COCO FARLEYER PATIENT Selected Encounter This section includes the information on record at [place] for the Encounter. Date/Time Encounter Type Encounter Description Reason Provider Source March 02, 2025 11:00 AM OFFICE O/P EST MOD 30 MIN PRIMARY CARE/MEDICINE ICD-10-CM J44.9 Chronic obstructive pulmonary disease, unspecified PHILLIP BRADLEY AM Encounter Template Text not used by [place] Assessments - Encounter Diagnoses This section includes the primary and secondary diagnoses documented for the Encounter. Date/Time Primary/Secondary Diagnosis Diagnosis Name Provider Source March 02, 2025 03:36 PM PRIMARY Chronic obstructive pulmonary disease, unspecified BRADLEY,WILL MARYANN [facility] [place] [facility] March 02, 2025 03:36 PM SECONDARY Other problems related to lifestyle BRADLEY,WILL MARYANN Garay [facility] [place] [facility] March 02, 2025 03:36 PM SECONDARY Unspecified atrial fibrillation BRADLEY,WILL MARYANN Garay [facility] Plan of Treatment: Future Appointments (+ 6 months) and Future Tests (+/- 45 days) The Plan of Treatment section includes future care activities for the patient from all [place] [facility]. This section includes future appointments and future orders which are active, pending or scheduled. Future Appointments This section includes appointments that were scheduled to occur 6 months from the date of the Encounter, up to a maximum of 20 appointments. The data comes from all [facility]. Appointment Date/Time Appointment Type Appointme nt Facility Name Mar 15, 2025 07:45 AM AMBULATORY - MEDICINE [facility] Mar 31, 2025 01:45 PM AMBULATORY - MEDICINE [facility] [place] [facility] May 12, 2025 08:00 AM AM[facility]ULATORY - [facility] Jun 30, 2025 09:30 AM AMBULATORY - [facility]IC[facility] Jul 26, 2025 09:00 AM [facility] Active, Pending, and Scheduled Orders This section includes a listing of several types of active, pending, and scheduled orders, including clinic medications orders, diagnostic test orders, procedure orders and consult orders; where the start date of the order is 45 days before the date of the Encounter or 45 days after the date of theEncounter. The data comes from all [facility]. Test Date/Time Test Type Test Details Facility Name Jan 20, 2025 12:00 AM Laboratory - Chemi stry Order BASIC METABOLIC PANEL (non-fasting) BLOOD (SST-SERUM) [facility] Jan 24, 2025 03:22 PM Consult Order COMMUNITY CARE-OPHTHALMOLOGY Cons Machine Trimmer's Choice [facility] February 10, 2025 12:00 AM Imaging - General Radiology Order OUTSIDE MRI BRAIN W/WO CONTRAST [place] [facility] [facility] Vital Signs: All taken on the encounter date This section contains inpatient and outpatient Vital Signs collected on the date of the Encounter. Date/Time Temperature Pulse Blood Pressure Respiratory Rate SP02 Pain Height Weight Body Mass Index Source March 02, 2025 11:02 AM 98.9 112 117/24 22 93 0 68 204 31 [place] [facility] [place] [facility] Social History: Smoking Status (Most current) [...] AM VA-TOBACCO USE ОЛЕГ RY DAY CIGARETTES [place] [facility] Tobacco Use History This section includes a history of the smoking, or tobacco-related health factors, that were collected on or before the date of the Encounter. The data comes from the [place] facility where the Encounter took place. Date/Time Smoking Status/Tobacco Use Comment F acility Sep 14, 2024 08:00 AM VA-TOBACCO SCREEN FOLLOW-UP [place] [facility] [place] [facility] Sep 14, 2024 08:00 AM VA-TOBACCO USE ADVICE [facility] [place] [facility] Sep 14, 2024 08:00 AM VA-TOBACCO USE GATE MANAGER NO [facility] [place] [facility] Sep 14, 2024 08:00 AM VA-TOBACCO USE ОЛЕГ RY DAY CIGARETTES [facility] [place] [facility] Sep 14, 2024 08:00 AM VA-TOBACCO USE MED NO [facility] [place] [facility] Sep 04, 2023 01:14 PM VA-TOBACCO USE 30 YEARS OR MORE [facility] [place] [facility] Sep 04, 2023 01:14 PM VA-TOBACCO USE ADVICE [facility] [place] [facility] Sep 04, 2023 01:14 PM VA-TOBACCO USE GATE MANAGER NO [facility] [place] [facility] Sep 04, 2023 01:14 PM VA-TOBACCO USE MED NO [facility] [place] [facility] Sep 04, 2023 01:14 PM VA-TOBACCO USE WI 30 MIN OF WAKEUP [facility] [place] [facility] Sep 04, 2023 01:14 PM VA-TOBACCO USER EVERY DAY [facility] [place] [facility] Oct 01, 2022 09:45 AM VA-TOBACCO DOESNT USE WI 30 MIN WAKEUP [facility] [place] [facility] Oct 01, 2022 09:45 AM VA-TOBACCO USE 30 YEARS OR MORE [facility] [place] [facility] Oct 01, 2022 09:45 AM VA-TOBACCO USE ADVICE [facility] [place] [facility] Oct 01, 2022 09:45 AM VA-TOBACCO USE GATE MANAGER NO [facility] [place] [facility] Oct 01, 2022 09:45 AM VA-TOBACCO USE MED NO [facility] [place] [facility] Oct 01, 2022 09:45 AM VA-TOBACCO USER EVERY DAY [facility] [place] [facility] Sep 07, 2021 10:30 AM VA-TOBACCO USE 30 YEARS OR MORE [facility] [place] [facility] Sep 07, 2021 10:30 AM VA-TOBACCO USE ADVICE [facility] [place] [facility] Sep 07, 2021 10:30 AM VA-TOBACCO USE GATE MANAGER NO [facility] [place] [facility] Sep 07, 2021 10:30 AM VA-TOBACCO USE MED NO [facility] [place] [facility] Sep 07, 2021 10:30 AM VA-TOBACCO USE WI 30 MIN OF WAKEUP [facility] [place] [facility] Sep 07, 2021 10:30 AM VA-TOBACCO USER EVERY DAY [facility] [place] [facility] Jun 08, 2020 09:00 AM VA-TOBACCO USE 30 YEARS OR MORE [facility] [place] [facility] Jun 08, 2020 09:00 AM VA-TOBACCO USE ADVICE [facility] [place] [facility] Jun 08, 2020 09:00 AM VA-TOBACCO USE GATE MANAGER NO [facility] [place] [facility] Jun 08, 2020 09:00 AM VA-TOBACCO USE MED NO [facility] [place] [facility] Jun 08, 2020 09:00 AM VA-TOBACCO USE WI 30 MIN OF WAKEUP [facility] [place] [facility] Jun 08, 2020 09:00 AM VA-TOBACCO USER EVERY DAY [facility] [place] [facility] Feb 01, 2019 02:27 PM VA-TOBACCO USE 30 YEARS OR MORE [facility] [place] [facility] Feb 01, 2019 02:27 PM VA-TOBACCO USE ADVICE [facility] [place] [facility] Feb 01, 2019 02:27 PM VA-TOBACCO USE GATE MANAGER NO [facility] [place] [facility] Feb 01, 2019 02:27 PM VA-TOBACCO USE MED NO [facility] [place] [facility] Feb 01, 2019 02:27 PM VA-TOBACCO USE WI 30 MIN OF WAKEUP [facility] [place] [facility] Feb 01, 2019 02:27 PM VA-TOBACCO USER EVERY DAY [facility] [place] [facility] Apr 02, 2018 02:47 PM CURRENT SMOKER [facility] [place] [facility] Apr 02, 2018 02:47 PM V1-PT DECLINES REF TO TOBACCO CESS PRGM [facility] [place] [facility] Apr 02, 2018 02:47 PM V1-PT DECLINES TOB ACCO CESSATION MEDS [facility] [place] [facility] Apr 02, 2018 02:47 PM V1-PT THINKING ABO UT QUIT TOBACCO USE [place] [facility] Radiology Reports: +/- 30 days [...] the Encounter. The data comes from all [place] treatment facilities. Date/Time Radiology Report Provider Source Feb 02, 2025 08:57 AM MRI BRAIN W/WO CONTRAST: KINGSTON RENDON [id number] -[id number] M Exm Date: FEB 02, 2025@08:57 Req Phys: JEEVAN RILEY Loc: [facility] ENDOCRINE 1 (Req'g Loc) Img Loc: [facility] MRI Service: Unknown [facility] [place] [address] (Case [id number] COMPLETE) MRI BRAIN W/WO CONTRAST (MRI Detailed) CPT:37688 Contrast Media : Gadolinium Reason for Study: Pituitary adenoma, worsening vision Clinical History: PLEASE NOTE If patient is claustrophobic consider ordering anti-anxiety medication prior to MRI. Safety Assessment: You must answer ALL questions or this questionnaire is not captured. Ordering provider, phone number and beeper:Ericka/Yanique Maurer RN [phone] Weight: 205 lb [92.99 kg] (01/20/2025 [...] 02, 2025 Date Verified: FEB 02, 2025 Dog Obedience Instructor E-Sig:/ES/ASHANTI ROMERO Report: PITUITARY MRI W/WO: CLINICAL INDICATION: Reason for Study: Pituitary adenoma, worsening vision PLEASE NOTE If patient is claustrophobic consider ordering anti-anxiety medication prior to MRI. Safety Assessment: You must answer ALL questions or this questionnaire is not captured. Ordering provider, phone number and beeper:Ericka/Yanique Maurer RN [phone] Weight: 205 l REASON FOR STUDY: [...] of the adeno and neurohypophysis. [place] gland: Normal volume and positioned within the [...] Primary Interpreting Staff: ASHANTI ROMERO, Staff Physician (Dog Obedience Instructor) /ASHANTI CODY [facility] Feb 02, 2025 08:28 AM BONE DENSITY DXA: KINGSTON RENDON [id number] -[id number] M Ex Date: FEB 02, 2025@08:28 Req Phys: JEEVAN RILEY Loc: [facility] ENDOCRINE MD 1 (Req'g Loc) Img Loc: [facility]/BUILDING 1 Service: [place] [address] (Case [id number] COMPLETE) BONE DENSITY AXIAL-DXA (RAD Detailed) CPT:55505 Reason for Study: osteoporosis Clinical History: Report Status: Verified Date Reported: FEB 02, 2025 Date Verified: FEB 02, 2025 Dog Obedience Instructor E-Sig:/LOLLY/AUSTIN GARCIA Report: DXA BONE DENSITY AXIAL: [...] MODEL: The exam was performed on a Proven A system at [place], [place]. YOUNG AGE Bone Mineral ADULT [...] Primary Interpreting Staff: AUSTIN GARCIA, Staff Physician (Dog Obedience Instructor) /AUSTIN MORRIS [place] [facility] Encounter Notes: All associated encounter notes This section contains the clinical notes associated to the Encounter. Date/Time Encounter Note(s) Provider Source Mar 11, 2025 12:01 PM ADDENDUM: LOCAL TITLE: Addendum STANDARD TITLE: ADDENDUM DATE OF NOTE: MAR 11, 2025@12:01:26 ENTRY DATE: MAR 11, 2025@12:01:27 AUTHOR: SHERLYN BRADLEY EXP COSIGNER: URGENCY: STATUS: COMPLETED is scheduled for cataract surgery, i see no contraindication to the planned procedure. /es/ Sherlyn Bradley DNP, WOOD HEEL FINISHER-BC, CNL Primary Care Nurse Practitioner Signed: 03/11/2025 12:03 Receipt Acknowledged By: 03/11/2025 12:46 /es/ CONNOR BRASHER MSN, RN, CNL Primary Care RN --- Original Document --- 03/02/25 NURSE PRACTITIONER OUTPATIENT NOTE: Chief complaint: Patient is a 69 year old . HPI: Pleasant male here to follow up status post hospitalization at [facility] for COPD exacerbation. He says some improvement. He is now on levalbuterol neb and inh, he follows with pulm Dr. Ramos. He is also scheduled to follow with [facility] cardiology. Allergies: HCTZ HYDROCHLOROTHIAZIDE, APIXABAN The following VA and Non-VA meds were [...] MOUTH ACTIVE ONCE DAILY FOR CHOLESTEROL 4) CHOLECALCIF 25MCG (D3-1,000UNIT) TAB TAKE ONE TABLET BY ACTIVE MOUTH ONCE DAILY FOR VITAMIN SUPPLEMENTATION Indication: FOR VITAMIN D DEFICIENCY 5) DILTIAZEM (EQV-TIAZAC) 240MG 24HR CAP TAKE ONE CAPSULE BY ACTIVE (S) MOUTH ONCE DAILY Indication: FOR HIGH BLOOD PRESSURE 6) FLUTICAS 250/SALMETEROL 50 INHL DISK 60 INHALE 1 PUFF BY ACTIVE MOUTH TWICE DAILY - RINSE MOUTH AFTER USE REPLACES SYMBICORT (BUDESONIDE/FORMOTEROL) 7) FUROSEMIDE 40MG TAB TAKE ONE TABLET BY MOUTH ONCE DAILY TO ACTIVE REMOVE FLUID/CONTROL BLOOD PRESSURE 8) LEVOTHYROXINE NA 75MCG TAB TAKE ONE TABLET BY MOUTH EVERY ACTIVE (S) MORNING 30 MINUTES BEFORE BREAKFAST TAKE ON AN EMPTY STOMACH WITH A FULL GLASS OF WATER Indication: FOR THYROID 9) NAPROXEN 500MG TAB TAKE ONE TABLET BY MOUTH EVERY 12 HOURS ACTIVE NEEDED TAKE WITH FOOD; /INFLAMMATION/SWELLING Indication: FOR PAIN 10) RIVAROXABAN 20MG TAB TAKE ONE TABLET BY MOUTH ONCE DAILY - ACTIVE TAKE WITH FOOD Indication: TO PREVENT BLOOD CLOTS 11) THEOPHYLLINE 400MG 24HR SA TAB TAKE ONE TABLET BY MOUTH ONCE ACTIVE DAILY 12) TIOTROPIUM 2.5MCG/ACTUAT 60D ORAL INHL INHALE 2 PUFFS BY ACTIVE MOUTH ONCE DAILY THIS REPLACES TIOTROPIUM HANDIHALER CAPSULES Inactive Outpatient Medications Status 1) DILTIAZEM (EQV-TIAZAC) 180MG 24HR CAP TAKE ONE CAPSULE ONCE DAILY Active Non-VA Medications Status 1) Non-VA RIVAROXABAN 20MG TAB 20MG BY MOUTH ONCE DAILY ACTIVE 14 Total Medications Review of Systems: Constitutional: (-)for Fevers, chills, weakness, nights sweats On examination: 98.9 F [37.2 C] (03/02/2025 11:02)117/24 (03/02/2025 11:02)112 (03/02/2025 11:02)22 (03/02/2025 11:02)0 (03/02/2025 11:02)BMI: 31.1204 lb [92.53 kg] (03/02/2025 11:02) [place] is alert and oriented X3 Neck: supple without masses, trachea midline, ln not palpable, no thyromegaly Cardiovasc: 2plus carotids without bruits, no JVD Heart Reguler rate and rhythm NL S1S2 no S3 or murmur Respiration: lung sounds diminished bilat ABD: Benign normal active bowel sounds no HSM no rebound or referred pain EXT: no clubbing, edema, or cyanosis All diagnostics from past month were reviewed with patient. Assessment/plan: Active problems - Computerized Problem List is the source for the followin. Atrial fibrillation - cardiology consult pending. 2. Alcohol intake exceeds recommended daily limit - counseled. 3. Chronic obstructive lung disease - see above Today I spent 30 minutes on some or all of the following: chart review, history, physical examination, treatment planning, education and counseling of the patient/family/client care representative, placing orders, communicating with other health care providers, completing health and wellness screenings (see below) and documentation in the electronic health record. Follow up visit in June Medication Reconciliation: Outpatient: Has the patient been [...] with a VA or non-VA provider. /lolly/ Shelryn Bradley DNP, WOOD HEEL FINISHER-BC, CNL Primary Care Nurse Practitioner Signed: 03/02/2025 15:35 SHERLYN BRADLEY [place] [facility] March 02, 2025 03:32 PM PRIMARY CARE NURSE PRACTITIONER OUTPATIENT NOTE: LOCAL TITLE: NURSE PRACTITIONER OUTPATIENT NOTE STANDARD TITLE: PRIMARY CARE NURSE PRACTITIONER OUTPATIENT NOTE DATE OF NOTE: MARCH 02, 2025@15:32 ENTRY DATE: MARCH 02, 2025@15:32:43 AUTHOR: SHERLYN BRADLEY EXP COSIGNER: URGENCY: STATUS: COMPLETED NURSE PRACTITIONER OUTPATIENT NOTE Has ADDENDA Chief complaint: Patient is a 69 year old [place]. HPI: Pleasant male here to follow up status post hospitalization at [facility] for COPD exacerbation. He says some improvement. He is now on levalbuterol neb and inh, he follows with pulm Dr. Ramos. He is also scheduled to follow with [facility] cardiology. Allergies: HCTZ HYDROCHLOROTHIAZIDE, APIXABAN The following VA and Non-VA meds were [...] MOUTH ACTIVE ONCE DAILY FOR CHOLESTEROL 4) CHOLECALCIF 25MCG (D3-1,000UNIT) TAB TAKE ONE TABLET BY ACTIVE MOUTH ONCE DAILY FOR VITAMIN SUPPLEMENTATION Indication: FOR VITAMIN D DEFICIENCY 5) DILTIAZEM (EQV-TIAZAC) 240MG 24HR CAP TAKE ONE CAPSULE BY ACTIVE (S) MOUTH ONCE DAILY Indication: FOR HIGH BLOOD PRESSURE 6) FLUTICAS 250/SALMETEROL 50 INHL DISK 60 INHALE 1 PUFF BY ACTIVE MOUTH TWICE DAILY - RINSE MOUTH AFTER USE REPLACES SYMBICORT (BUDESONIDE/FORMOTEROL) 7) FUROSEMIDE 40MG TAB TAKE ONE TABLET BY MOUTH ONCE DAILY TO ACTIVE REMOVE FLUID/CONTROL BLOOD PRESSURE 8) LEVOTHYROXINE NA 75MCG TAB TAKE ONE TABLET BY MOUTH EVERY ACTIVE (S) MORNING 30 MINUTES BEFORE BREAKFAST TAKE ON AN EMPTY STOMACH WITH A FULL GLASS OF WATER Indication: FOR THYROID 9) NAPROXEN 500MG TAB TAKE ONE TABLET BY MOUTH EVERY 12 HOURS ACTIVE NEEDED TAKE WITH FOOD; /INFLAMMATION/SWELLING Indication: FOR PAIN 10) RIVAROXABAN 20MG TAB TAKE ONE TABLET BY MOUTH ONCE DAILY - ACTIVE TAKE WITH FOOD Indication: TO PREVENT BLOOD CLOTS 11) THEOPHYLLINE 400MG 24HR SA TAB TAKE ONE TABLET BY MOUTH ONCE ACTIVE DAILY 12) TIOTROPIUM 2.5MCG/ACTUAT 60D ORAL INHL INHALE 2 PUFFS BY ACTIVE MOUTH ONCE DAILY THIS REPLACES TIOTROPIUM HANDIHALER CAPSULES Inactive Outpatient Medications Status 1) DILTIAZEM (EQV-TIAZAC) 180MG 24HR CAP TAKE ONE CAPSULE ONCE DAILY Active Non-VA Medications Status 1) Non-VA RIVAROXABAN 20MG TAB 20MG BY MOUTH ONCE DAILY ACTIVE 14 Total Medications Review of Systems: Constitutional: (-)for Fevers, chills, weakness, nights sweats On examination: 98.9 F [37.2 C] (03/02/2025 11:02)117/24 (03/02/2025 11:02)112 (03/02/2025 11:02)22 (03/02/2025 11:02)0 (03/02/2025 11:02)BMI: 31.1204 lb [92.53 kg] (03/02/2025 11:02) is alert and oriented X3 Neck: supple without masses, trachea midline, ln not palpable, no thyromegaly Cardiovasc: 2plus carotids without bruits, no JVD Heart Reguler rate and rhythm NL S1S2 no S3 or murmur Respiration: lung sounds diminished bilat ABD: Benign normal active bowel sounds no HSM no rebound or referred pain EXT: no clubbing, edema, or cyanosis All diagnostics from past month were reviewed with patient. Assessment/plan: Active problems - Computerized Problem List is the source for the followin. Atrial fibrillation - cardiology consult pending. 2. Alcohol intake exceeds recommended daily limit - counseled. 3. Chronic obstructive lung disease - see above Today I spent 30 minutes on some or all of the following: chart review, history, physical examination, treatment planning, education and counseling of the patient/family/client care representative, placing orders, communicating with other health care providers, completing health and wellness screenings (see below) and documentation in the electronic health record. Follow up visit in June Medication Reconciliation: Outpatient: Has the patient been [...] a VA or non-VA provider. /lolly/ Sherlyn Bradley DNP, SHILPA, SANDY Primary Care Nurse Practitioner Signed: 03/02/2025 15:35 03/11/2025 ADDENDUM STATUS: COMPLETED is scheduled for cataract surgery, i see no contraindication to the planned procedure. /lolly/ Sherlyn Bradley DNP, SHILPA, SANDY Primary Care Nurse Practitioner Signed: 03/11/2025 12:03 Receipt Acknowledged By: * AWAITING SIGNATURE * CONNOR BRASHER WILLIAM J [place] [facility] [facility] March 02, 2025 11:05 AM PREVENTIVE MEDICINE NURSING NOTE: LOCAL TITLE: CLINICAL REMINDERS/NURSING STANDARD TITLE: PREVENTIVE MEDICINE NURSING NOTE DATE OF NOTE: MARCH 02, 2025@11:05 ENTRY DATE: MARCH 02, 2025@11:05:43 AUTHOR: ALONSO MCQUEEN COSIGNER: URGENCY: STATUS: COMPLETED Advance Directive Screen MH AD: Patient does not have an Advance Directive completed and is requesting more information. A consult was sent to Social Work Services at this visit so that an appointment can be made with the patient to review the advance directive. The patient received education about Advance Directives and written notification of his/her rights. Suicide Screen: C-SSRS Screening [place]-Suicide Severity Rating Scale (C-SSRS Screener) 1. Over [...] required due to responses to other questions. Alcohol Use Screen (AUDIT-C): Alcohol Screen: SCREEN [...] one occasion in the past year? Never /es/ Alonso Mcqueen Health Fabric Inspector TIRE STRIPPER,PRIMARY CARE Signed: 03/02/2025 11:07 ALONSO MCQUEEN [facility]
--- OUTSIDE RECORDS SUMMARY | 2025-05-27 10:47 | XMS_ITS | Encounter Summary ---
Author Name [facility] [place] [facility] [place] Address [address] [place] [address] Care Team Providers Care Correctional Classification Counselor Name Role Phone SHERLYN BRADLEY Primary Care [...] PART B Apr 05, 2020 PART B [id number] NIKOLECOCO MOCK PATIENT MEDICARE (WNR) MEDICARE (M) PART A Mar 06, 2019 PART A [id number] COCO FARLEY PATIENT Selected Encounter This section includes the information on record at [place] for the Encounter. Date/Time Encounter Type Encounter Description Reason Provider Source May 27, 2025 02:47 PM PH1 ASSMT&MGMT NQHP 5-10 TELEPHONE PRIMARY CARE ICD-10-CM J44.9 Chronic obstructive pulmonary disease, unspecified OWEN RUIZ IHNathaniel Encounter Template Text not used by [facility] Assessments - Encounter Diagnoses This section includes the primary and secondary diagnoses documented for the Encounter. Date/Time Primary/Secondary Diagnosis Diagnosis Name Provider Source May 27, 2025 02:47 PM PRIMARY Chronic obstructive pulmonary disease, unspecified OWEN RUIZ [facility] Plan of Treatment: Future Appointments (+ 6 months) and Future Tests (+/- 45 days) The Plan of Treatment section includes future care activities for the [facility] [place] [facility] This section includes future appointments and future orders which are active, pending or scheduled. Future Appointments This section includes appointments that were scheduled to occur 6 months from the date of the Encounter, up to a maximum of 20 appointments. The data comes from all [place] treatment facilities. Appointment Date/Time Appointment Type Appointme nt Facility Name Jun 30, 2025 09:30 AM AMBULATORY - MEDICINE [facility] Jul 26, 2025 09:00 AM AMBULATORY MEDICINE [facility] Active, Pending, and Scheduled Orders This section includes a listing of several types of active, pending, and scheduled orders, including clinic medications orders, diagnostic test orders, procedure orders and consult orders; where the start date of the order is 45 days before the date of the Encounter or 45 days after the date of theEncounter. The data comes from all [facility]. Test Date/Time Test Type Test Details Facility Name May 12, 2025 09:16 AM Consult Order [facility] Cons Revenue Field Auditor's Choice [facility] Social History: Smoking Status (Most current) and Tobacco Use (All prior to encounter date) This section includes the most current, and the historical, smoking and tobacco- related health factors from the [place] facility where the Encounter took place. Current Smoking Status This section includes the most current smoking, or tobacco-related health factor, from the [place] facility where the Encounter took place. Date/Time Current Smoking Status Comment Facil ity Sep 14, 2024 08:00 AM AL-TOBACCO USE ОЛЕГ RY DAY CIGARETTES [facility] Tobacco Use History This section includes a history of the smoking, or tobacco-related health factors, that were collected on or before the date of the Encounter. The data comes from the [place] facility where the Encounter took place. Date/Time Smoking Status/Tobacco Use Comment F acility Sep 14, 2024 08:00 AM VA-TOBACCO SCREEN FOLLOW-UP [facility] [place] [facility] Sep 14, 2024 08:00 AM VA-TOBACCO USE ADVICE [facility] [place] 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 Sep 14, 2024 08:00 AM VA-TOBACCO USE ОЛЕГ RY DAY CIGARETTES [facility] [place] [facility] Sep 14, 2024 08:00 AM VA-TOBACCO USE MED NO [facility] [place] [facility] Sep 04, 2023 01:14 PM VA-TOBACCO USE 30 YEARS OR MORE [facility] [place] [facility] Sep 04, 2023 01:14 PM VA-TOBACCO USE ADVICE [facility] [place] 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 Sep 04, 2023 01:14 PM VA-TOBACCO USE MED NO [facility] [place] [facility] Sep 04, 2023 01:14 PM VA-TOBACCO USE WI 30 MIN OF WAKEUP [facility] [place] [facility] Sep 04, 2023 01:14 PM VA-TOBACCO USER EVERY DAY [facility] [place] [facility] Oct 01, 2022 09:45 AM VA-TOBACCO DOESNT USE WI 30 MIN WAKEUP [facility] [place] [facility] Oct 01, 2022 09:45 AM VA-TOBACCO USE 30 YEARS OR MORE [facility] [place] [facility] Oct 01, 2022 09:45 AM VA-TOBACCO USE ADVICE [facility] [place] 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 Oct 01, 2022 09:45 AM VA-TOBACCO USE MED NO [facility] [place] [facility] Oct 01, 2022 09:45 AM VA-TOBACCO USER EVERY DAY [facility] [place] [facility] Sep 07, 2021 10:30 AM VA-TOBACCO USE 30 YEARS OR MORE [facility] [place] [facility] Sep 07, 2021 10:30 AM VA-TOBACCO USE ADVICE [facility] [place] 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 Sep 07, 2021 10:30 AM VA-TOBACCO USE MED NO [facility] [place] [facility] Sep 07, 2021 10:30 AM VA-TOBACCO USE WI 30 MIN OF WAKEUP [facility] [place] [facility] Sep 07, 2021 10:30 AM VA-TOBACCO USER EVERY DAY [facility] [place] [facility] Jun 08, 2020 09:00 AM VA-TOBACCO USE 30 YEARS OR MORE [facility] [place] [facility] Jun 08, 2020 09:00 AM VA-TOBACCO USE ADVICE [facility] [place] 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 Jun 08, 2020 09:00 AM VA-TOBACCO USE MED NO [facility] [place] [facility] Jun 08, 2020 09:00 AM VA-TOBACCO USE [place] 30 MIN OF WAKEUP [facility] [place] [facility] Jun 08, 2020 09:00 AM VA-TOBACCO USER EVERY DAY [facility] [place] [facility] Feb 01, 2019 02:27 PM VA-TOBACCO USE 30 YEARS OR MORE [facility] [place] [facility] Feb 01, 2019 02:27 PM VA-TOBACCO USE ADVICE [facility] [place] 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 Feb 01, 2019 02:27 PM VA-TOBACCO USE MED NO [facility] [place] [facility] Feb 01, 2019 02:27 PM VA-TOBACCO USE [place] 30 MIN OF WAKEUP [facility] [place] [facility] Feb 01, 2019 02:27 PM VA-TOBACCO USER EVERY DAY [facility] [place] [facility] Apr 02, 2018 02:47 PM CURRENT SMOKER [facility] [place] [facility] Apr 02, 2018 02:47 PM V1-PT DECLINES REF TO TOBACCO CESS PRGM [facility] [place] [facility] Apr 02, 2018 02:47 PM V1-PT DECLINES TOB ACCO CESSATION MEDS [facility] Apr 02, 2018 02:47 PM V1-PT THINKING ABO UT QUIT TOBACCO USE [facility] Encounter Notes: All associated encounter notes This section contains the clinical notes associated to the Encounter. Date/Time Encounter Note(s) Provider Source May 27, 2025 02:47 PM RESPIRATORY THERAP Y NOTE: LOCAL TITLE: RESPIRATORY THERAPY NOTE(BLANK) STANDARD TITLE: RESPIRATORY THERAPY NOTE DATE OF NOTE: MAY 27, 2025@14:47 ENTRY DATE: MAY 27, 2025@14:47:24 AUTHOR: ITA RUIZ EXP COSIGNER: URGENCY: STATUS: COMPLETED Telephone Coding and Documentation: Diagnosis: COPD Actual time spent with Patient via telephone: 5 minutes. [place] with oxygen after being discharged from rehab is agreeable to coming into the [place] oxygen clinic for an oxygen evaluation. He is not using the oxygen but his prescription is through July 13. His evaluation will show if he needs to continue the oxygen or if it can be discontinued. An RTC was placed for the visit. /lolly/ ITA RUIZ, MURAL PAINTER, RPFT RESPIRATORY THERAPIST Signed: 05/27/2025 14:50 Receipt Acknowledged By: * AWAITING SIGNATURE * YANN ARROYO BETSY A [facility]
--- OUTSIDE RECORDS SUMMARY | 2025-05-31 05:20 | XMS_ITS | Continuity of Care Document ---
Author Name [facility] Organization [facility] Care Team Providers Care Nutritionist Public Health Name Role Phone [facility] Unavailable Unavailable Problems Combined list of problems [...] [facility] Diagnosis or Condition Deferred on [place] I Active Condition [facility] Diplopia Active Condition [facility] Dyspnea (SCT 684197701) Active Condition Jan 02, 2018 Entered By: JOHN APONTE Comment: likely COPD related to chronic smoking >40 yrs. cutting down from 5 cigars to 5 cigarettes [facility] Elevated blood-pressure reading without diagnosis of hypertension Active Condition [facility] HTN - Hypertension (SCT [id number]) Active Condition [facility] Hyperlipidemia (SCT 39570092) Active Condition Nov 06, 2018 Entered By: GIN BRADLEY Comment: address next visitDec 07, 2020 Entered By: GIN BRADLEY Comment: start atorvastatin 20mg qhs [facility] Hyponatremia Active Condition [facility] Hypothyroid Active Condition [facility] Long-term current use of anticoagulant Active Condition [facility] (631[facility]) Multiple nodules of lung Active Condition [facility] Osteoporosis Active Condition [facility] Polyp Colon (SCT 62499507) Active Condition Jun 04, 2019 Entered By: [...] [facility] Diagnosis: ICD-10-CM Z51.81 Encounter for therapeutic drug level monitoring Active Diagnosis [facility] Diagnosis: ICD-10-CM 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 Diagnosis: ICD-10-CM M81.0 Age-related osteoporosis w/o current pathological fracture Active Diagnosis [facility] Diagnosis: ICD-10-CM E03.9 Hypothyroidism, unspecified Active Diagnosis [facility] Diagnosis: ICD-10-CM R91.1 Solitary pulmonary nodule Active Diagnosis [facility] Medications Combined list of outpatient medications from [...] G RESPIR ATORY (INHAL ATION) ACTIVE 09/15/2025 [id number] 5 SHERLYN BRADLEY 2024 3 [facility] ALBUTEROL 90MCG/ACTUA T (CFC-F) INHL,ORAL,8 .5GM DOSE COUNTER INHALE 2 PUFFS BY MOUTH EVERY 4 HOURS NEEDED FOR BREATHIN G RESPIR ATORY (INHAL ATION) DISCONT INUED 01/21/2025 [id number] 4 BERNARDINO NIELSEN 2023 3 [facility] ALBUTEROL SO4 0.083% INHL,3ML INHALE 1 AMPULE IN NEBULIZE R EVERY 6 HOURS NEEDED FOR BREATHIN G RESPIR ATORY (INHAL ATION) ACTIVE 09/15/2025 [id number] 5 SHERLYN BRADLEY 2023 120 [facility] APIXABAN 5MG TAB TAKE ONE TABLET BY MOUTH EVERY 12 HOURS ORAL DISCONT INUED BY PROVIDE R 02/19/2025 [id number] 5 SERGEI BINGHAM 2024 60 [facility] PTON ATORVASTATI N CA 40MG TAB TAKE ONE-HALF TABLET BY MOUTH ONCE DAILY FOR CHOLESTE ROL ORAL ACTIVE 09/15/2025 [id number] 5 SHERLYN BRADLEY 2023 45 [facility] ATORVASTATI N CA 40MG TAB TAKE ONE-HALF TABLET BY MOUTH ONCE DAILY FOR CHOLESTE ROL ORAL DISCONT INUED 09/11/2024 [id number] 4 SHERLYN BRADLEY 2022 45 [facility] CALCIUM 200MG (CA CITRATE-950 MG) TAB TAKE THREE TABLETS BY MOUTH TWICE DAILY ORAL DISCONT INUED 10/07/2024 [id number] 4 RILEY,AL ICE 2023 540 [facility] CALCIUM 200MG (CA CITRATE-950 MG) TAB TAKE THREE TABLETS BY MOUTH TWICE DAILY ORAL 12/13/2024 [id number] 4 SHERLYN BRADLEY 2023 540 [facility] CHOLECALCIF UNA 25MCG (1,000UNIT) TAB TAKE ONE TABLET BY MOUTH ONCE DAILY FOR VITAMIN SUPPLEME NTATION ORAL ACTIVE 02/04/2026 [id number] 5 SHERLYN BRADLEY 2024 90 [facility] CHOLECALCIF UNA 25MCG (1,000UNIT) TAB TAKE ONE TABLET BY MOUTH ONCE DAILY FOR VITAMIN SUPPLEME NTATION ORAL DISCONT INUED 12/13/2024 [id number] 4 SHERLYN BRADLEY 2023 90 [facility] CHOLECALCIF UNA 25MCG (1,000UNIT) TAB TAKE ONE TABLET BY MOUTH ONCE DAILY FOR VITAMIN SUPPLEME NTATION ORAL DISCONT INUED 10/07/2024 [id number] 4 RILEY,AL ICE 2023 90 [facility] CHOLECALCIF UNA 25MCG (1,000UNIT) TAB TAKE ONE TABLET BY MOUTH ONCE DAILY FOR VITAMIN SUPPLEME NTATION ORAL 04/26/2024 [id number] 4 RILEY,AL ICE 2022 90 [facility] DEMECLOCYCL INE HCL 150MG TAB TAKE ONE TABLET BY MOUTH TWICE DAILY FOR INFECTIO N ORAL DISCONT INUED BY PROVIDE R 07/17/2025 [id number] 4 RILEY,AL ICE 2023 180 [facility] DILTIAZEM (EQV-TIAZAC AB4) 180MG 24HR CAP TAKE TWO CAPSULES BY MOUTH ONCE DAILY ORAL ACTIVE 03/16/2026 [id number] 5 Jarrod VELAZQUEZ 2024 180 [facility] DILTIAZEM (EQV-TIAZAC AB4) 180MG 24HR CAP TAKE ONE CAPSULE ONCE DAILY 02/19/2025 [id number] 5 SERGEI BINGHAM 2024 30 [facility] PTON DILTIAZEM (EQV-TIAZAC AB4) 240MG 24HR CAP TAKE ONE CAPSULE BY MOUTH ONCE DAILY ORAL ACTIVE 03/03/2026 [id number] 5 SHERLYN BRADLEY 2024 90 [facility] FLUTICASONE 250MCG/SALM ETEROL 50MCG INHL,ORAL,D ISKUS,60 INHALE 1 PUFF BY MOUTH TWICE DAILY - RINSE MOUTH AFTER USE REPLAC ES SYMBICOR T (BUDESON NAVID/FORM OTEROL)* * RESPIR ATORY (INHAL ATION) ACTIVE 09/15/2025 [id number] 5 SHERLYN BRADLEY 2023 1 [facility] FLUTICASONE 250MCG/SALM ETEROL 50MCG INHL,ORAL,D ISKUS,60 INHALE 1 PUFF BY MOUTH TWICE DAILY - RINSE MOUTH AFTER USE REPLAC ES SYMBICOR T (BUDESON NAVID/FORM OTEROL)* * RESPIR ATORY (INHAL ATION) DISCONT INUED 12/04/2024 [id number] 4 SHERLYN BRADLEY 2023 1 [facility] FUROSEMIDE 40MG TAB TAKE ONE TABLET BY MOUTH ONCE DAILY TO REMOVE FLUID/CO NTROL BLOOD PRESSURE ORAL ACTIVE 12/14/2025 [id number] 5 ASAD GUERRERO BEATRICE 2024 30 [facility] FUROSEMIDE 40MG TAB TAKE ONE TABLET BY MOUTH ONCE DAILY TO REMOVE FLUID/CO NTROL BLOOD PRESSURE ORAL DISCONT INUED 10/19/2025 [id number] 5 ASAD GUERRERO BEATRICE 2024 30 [facility] KETOROLAC TROMETHAMIN E 0.5% SOLN,OPH INSTILL 1 DROP INTO THE AFFECTED EYE(S) THREE TIMES A DAY (START TWO DAYS PRIOR TO SURGERY. CONTINUE DIRECTED ) OPHTHA LMIC ACTIVE 03/16/2026 [id number] 5 ALEXIA JONES 2024 10 [facility] LEVOTHYROXI NE NA 75MCG TAB TAKE ONE TABLET BY MOUTH EVERY MORNING 30 MINUTES BEFORE BREAKFAS T TAKE ON AN EMPTY STOMACH WITH A FULL GLASS OF WATER ORAL ACTIVE 03/03/2026 [id number] 5 SHERLYN BRADLEY 2024 90 [facility] LEVOTHYROXI NE NA 88MCG TAB TAKE ONE TABLET BY MOUTH EVERY MORNING 30 MINUTES BEFORE BREAKFAS T TAKE ON AN EMPTY STOMACH WITH A FULL GLASS OF WATER ORAL DISCONT INUED (EDIT) 09/15/2025 [id number] 4 SHERLYN BRADLEY 2023 90 [facility] LEVOTHYROXI NE NA 88MCG TAB (SYNTHROID) TAKE ONE TABLET BY MOUTH EVERY MORNING 30 MINUTES BEFORE BREAKFAS T TAKE ON AN EMPTY STOMACH WITH A FULL GLASS OF WATER ORAL DISCONT INUED 12/29/2024 [id number] 4 SHERLYN BRADLEY 2023 90 [facility] LISINOPRIL 30MG TAB TAKE ONE TABLET BY MOUTH ONCE DAILY TO CONTROL BLOOD PRESSURE NOTE NEW TABLET STRENGTH ORAL DISCONT INUED BY PROVIDE R 09/15/2025 [id number] 4 SHERLYN BRADLEY 2023 90 [facility] LISINOPRIL 30MG TAB TAKE ONE TABLET BY MOUTH ONCE DAILY TO CONTROL BLOOD PRESSURE NOTE NEW TABLET STRENGTH ORAL DISCONT INUED 09/11/2024 [id number] 4 SHERLYN BRADLEY 2022 90 [facility] METOPROLOL TARTRATE 50MG TAB TAKE ONE TABLET BY MOUTH TWICE DAILY FOR BLOOD PRESSURE /HEART ORAL ACTIVE 06/15/2025 [id number] 5 EUN YEAGER 2024 60 [facility] NAPROXEN 500MG TAB TAKE ONE TABLET BY MOUTH EVERY 12 HOURS NEEDED TAKE WITH FOOD; FOR PAIN/INF LAMMATIO N/SWELLI NG ORAL 03/13/2025 [id number] 4 SHERLYN BRADLEY 2023 60 [facility] OXYGEN MISCELLANEO US USE DIRECTED NOT APPLIC ABLE ACTIVE SHERLYN BRADLEY 2024 [facility] PREDNISONE 10MG TAB TAKE TWO TABLETS BY MOUTH ONCE DAILY FOR 2 DAYS, THEN TAKE ONE TABLET ONCE DAILY FOR 2 DAYS, THEN TAKE ONE-HALF TABLET ONCE DAILY FOR 2 DAYS ORAL ACTIVE 06/15/2025 [id number] 5 EUN YEAGER 2024 7 [facility] PREDNISONE 20MG TAB TAKE ONE TABLET BY MOUTH ONCE DAILY FOR ASTHMA ORAL 10/14/2024 [id number] 4 SHERLYN BRADLEY 2023 7 [facility] RIVAROXABAN 20MG TAB TAKE ONE TABLET BY MOUTH ONCE DAILY - TAKE WITH FOOD ORAL ACTIVE 02/23/2026 [id number] SHERLYN BRADLEY 2024 90 [facility] RIVAROXABAN 20MG TAB TAKE ONE TABLET BY MOUTH ONCE DAILY ORAL ACTIVE La FRANKLIN 2024 [facility] THEOPHYLLIN E 400MG 24HR TAB,SA TAKE ONE TABLET BY MOUTH ONCE DAILY ORAL DISCONT INUED 01/07/2026 [id number] 5 CESAR,AN BEATRICE 2024 30 [facility] THEOPHYLLIN E 400MG CAP,SA (ISI-24) TAKE ONE CAPSULE BY MOUTH ONCE DAILY ORAL ACTIVE 01/07/2026 [id number] 5 CESAR,AN BEATRICE 2024 30 [facility] TIOTROPIUM 2.5MCG/ACTU AT INHL,ORAL,6 0D,4GM INHALE 2 PUFFS BY MOUTH ONCE DAILY THIS REPLACES TIOTROPI UM HANDIHAL ER CAPSULES RESPIR ATORY (INHAL ATION) ACTIVE 09/15/2025 [id number] 5 SHERLYN BRADLEY 2024 3 [facility] TIOTROPIUM 2.5MCG/ACTU AT INHL,ORAL,6 0D,4GM INHALE 2 PUFFS BY MOUTH ONCE DAILY THIS REPLACES TIOTROPI UM HANDIHAL ER CAPSULES RESPIR ATORY (INHAL ATION) DISCONT INUED 09/11/2024 [id number] 4 SHERLYN BRADLEY 2022 3 [facility] Allergies, Adverse Reactions, Alerts Combined list of allergies from Department of Defense and Veterans Affairs facilities. It does not include entries that were removed or entered in error. Substance Category Reaction Severity Reaction type Status Date Reported Comments Source APIXABAN Propensity to adverse reactions to drug (finding) Eruption active 5 [facility] HCTZ HYDROCHLOROTH IAZIDE Propensity to adverse reactions to drug (finding) active 8 [facility] Immunizations Combined list of available immunizations from the Department of Defense and Veterans Affairs facilities. Immunization Series Date Given Administered By Site Reaction Lot Number CVX Code Drug Clinical Supervisor Status Comments Source COVID-19 (MODERNA), MRNA, LNP-S, PF, 50 MCG/0.5 ML (AGES 12+ YEARS) 2023 ZANVETTOR,PADMINI LAURA RIGHT DELTO ID [id number] 312 complet ed Booster for Series, [facility] INFLUENZA, HIGH-DOSE, TRIVALENT, PF 2023 RADHA ZHANG LEFT DELTO ID [id number] A 135 complet ed Completed Series, [facility] PNEUMOCOCCAL CONJUGATE PCV20, POLYSACCHARID E [id number] CONJUGATE, ADJUVANT, PF 2023 ANSHUPADMINI LAURA RIGHT DELTO ID [id number] 216 complet ed [facility] COVID-19 (MODERNA), MRNA, LNP-S, PF, 50 MCG/0.5 ML (AGES 12+ YEARS) 2022 ANSHUPADMINI ROBLESA LEFT DELTO ID [id number] 312 complet ed Booster for Series, [facility] INFLUENZA, HIGH-DOSE, QUADRIVALENT 2022 ANSHUPADMINI ROBLESA RIGHT DELTO ID [id number] 197 complet ed [facility] INFLUENZA VACCINE, QUADRIVALENT, ADJUVANTED 2021 ANSHUPADMINI LAURA RIGHT DELTO ID [id number] 205 complet ed Booster for Series, [facility] INFLUENZA VACCINE, QUADRIVALENT, ADJUVANTED 2020 205 complet ed [facility] COVID-19 (MODERNA), MRNA, LNP-S, PF, 100 MCG OR 50 MCG DOSE 3 2020 207 complet ed [facility] COVID-19 (PFIZER), MRNA, LNP-S, PF, 30 MCG/0.3 ML DOSE 2 2020 208 complet ed PFR; [id number]; 1 [facility] COVID-19 (PFIZER), MRNA, LNP-S, PF, 30 MCG/0.3 ML DOSE 1 2020 208 complet ed PFR; [id number]; 1 [facility] [...] Reference Range Date Interpretation Specimen Comments Source FREE T4 THYROXINE (T4) FREE [MASS/VOLUM E] IN SERUM OR PLASMA 1.29 ng/dL 0.70 - 1.48 01/17 Specimen Type: SERUM No comment entered. Ordering Provider: JOSÉ RILEY Report Released Date/Time: Jan 16, 2025 03:25 PM Reporting Lab: [facility] [place] [facility] [address] [facility] [address] Performing Lab: [facility] [place] [facility] [address] [facility] [address] [facility] CALCIUM CALCIUM [MASS/VOLUM E] IN SERUM OR PLASMA 9.9 mg/dL 8.8 - 10 01/17 Specimen Type: SERUM No comment entered. Ordering Provider: JOSÉ RILEY Report Released Date/Time: Jul 18, 2024 06:58 PM Reporting Lab: [facility] [address] [facility] [address] Performing Lab: [facility] [address] [facility] [address] [facility] VITAMIN D (25-OH) 25-HYDROXYV ITAMIN D3+25-HYDRO XYVITAMIN D2 [MASS/VOLUM E] IN SERUM OR PLASMA 46.2 ng/mL 20 - 50 01/17 Specimen Type: SERUM No comment entered. Ordering Provider: JOSÉ RILEY Report Released Date/Time: Jul 18, 2024 06:58 PM Reporting Lab: [facility] [address] [facility] [address] Performing Lab: [address] [address] [facility] BASIC METABOLIC PANEL (non-fast ing) UREA NITROGEN [MASS/VOLUM E] IN SERUM OR PLASMA 39 mg/dL 8 - 26 01/17 H Specimen Type: SERUM No comment entered. Ordering Provider: JOSÉ RILEY Report Released Date/Time: Jul 18, 2024 06:58 PM Reporting Lab: [address] [address] Performing Lab: [address] [address] [facility] BASIC METABOLIC PANEL (non-fast ing) GLUCOSE [MASS/VOLUM E] IN SERUM OR PLASMA 109 mg/dL 65 - 100 01/17 H Specimen Type: SERUM No comment entered. Ordering Provider: JOSÉ RILEY Report Released Date/Time: Jul 18, 2024 06:58 PM Reporting Lab: [address] [address] Performing Lab: [address] [address] [facility] BASIC METABOLIC PANEL (non-fast ing) SODIUM [MOLES/VOLU ME] IN SERUM OR PLASMA 140 mmol/L 136 - 145 01/17 Specimen Type: SERUM No comment entered. Ordering Provider: JOSÉ RILEY Report Released Date/Time: Jul 18, 2024 06:58 PM Reporting Lab: [facility] [place] [facility] [address] [facility] [address] Performing Lab: [facility] [address] [facility] [address] [facility] BASIC METABOLIC PANEL (non-fast ing) POTASSIUM [MOLES/VOLU ME] IN SERUM OR PLASMA 5.0 mmol/L 3.5 - 5.1 01/17 Specimen Type: SERUM No comment entered. Ordering Provider: JOSÉ RILEY Report Released Date/Time: Jul 18, 2024 06:58 PM Reporting Lab: [facility] [address] [facility] [address] Performing Lab: [facility]EN[facility] [address] [facility] BASIC METABOLIC PANEL (non-fast ing) CHLORIDE [MOLES/VOLU ME] IN SERUM OR PLASMA 102 mmol/L 98 - 107 01/17 Specimen Type: SERUM No comment entered. Ordering Provider: JOSÉ RILEY Report Released Date/Time: Jul 18, 2024 06:58 PM Reporting Lab: [facility] [address] [facility] [address] Performing Lab: [facility] [address] [facility] [address] [facility] BASIC METABOLIC PANEL (non-fast ing) CARBON DIOXIDE, TOTAL [MOLES/VOLU ME] IN SERUM OR PLASMA 26 meq/L 23 - 31 01/17 Specimen Type: SERUM No comment entered. Ordering Provider: JOSÉ RILEY Report Released Date/Time: Jul 18, 2024 06:58 PM Reporting Lab: [facility] [address] [facility] [address] Performing Lab: [facility] [address] [facility] [address] [facility] BASIC METABOLIC PANEL (non-fast ing) CALCIUM [MASS/VOLUM E] IN SERUM OR PLASMA 9.9 mg/dL 8.8 - 10 01/17 Specimen Type: SERUM No comment entered. Ordering Provider: JOSÉ RILEY Report Released Date/Time: Jul 18, 2024 06:58 PM Reporting Lab: [address] [address] Performing Lab: [address] [address] [facility] BASIC METABOLIC PANEL (non-fast ing) CREATININE [MASS/VOLUM E] IN SERUM OR PLASMA 1.46 mg/dL 0.72 - 1.25 01/17 H Specimen Type: SERUM No comment entered. Ordering Provider: JOSÉ RILEY Report Released Date/Time: Jul 18, 2024 06:58 PM Reporting Lab: [address] [address] Performing Lab: [address] [address] [facility] BASIC METABOLIC PANEL (non-fast ing) GLOMERULAR FILTRATION RATE/1.73 SQ M.PREDICTED [VOLUME RATE/AREA] IN SERUM, PLASMA OR BLOOD BY CREATININE- BASED FORMULA (CKD-EPI 2020) 51 mL/min 60 01/17 L Specimen Type: SERUM No comment entered. Ordering Provider: JOSÉ RILEY Report Released Date/Time: Jul 18, 2024 06:58 PM Reporting Lab: [address] [address] Performing Lab: [address] [address] [facility] BASIC METABOLIC PANEL (non-fast ing) UREA NITROGEN [MASS/VOLUM E] IN SERUM OR PLASMA 16 mg/dL 7 - 25 09/06 Specimen Type: SERUM No comment entered. Ordering Provider: JOSÉ RILEY Report Released Date/Time: Jul 16, 2024 02:39 PM Reporting Lab: [facility] [address] [facility] [address] Performing Lab: [facility]EN[facility] [address] [facility] [facility] [address] [facility] BASIC METABOLIC PANEL (non-fast ing) GLUCOSE [MASS/VOLUM E] IN SERUM OR PLASMA 87 mg/dL 65 - 100 09/06 Specimen Type: SERUM No comment entered. Ordering Provider: JOSÉ RILEY Report Released Date/Time: Jul 16, 2024 02:39 PM Reporting Lab: [facility] [address] [facility] [address] Performing Lab: [facility] [address] [facility] [address] [facility] BASIC METABOLIC PANEL (non-fast ing) SODIUM [MOLES/VOLU ME] IN SERUM OR PLASMA 137 mmol/L 135 - 145 09/06 Specimen Type: SERUM No comment entered. Ordering Provider: JOSÉ RILEY Report Released Date/Time: Jul 16, 2024 02:39 PM Reporting Lab: [facility] [address] [facility] [address] Performing Lab: [facility] [address] [facility] [address] [facility] BASIC METABOLIC PANEL (non-fast ing) POTASSIUM [MOLES/VOLU ME] IN SERUM OR PLASMA 4.6 mmol/L 3.5 - 5.0 09/06 Specimen Type: SERUM No comment entered. Ordering Provider: JOSÉ RILEY Report Released Date/Time: Jul 16, 2024 02:39 PM Reporting Lab: [facility] [address] [facility] [address] Performing Lab: [facility] [address] [facility] [address] [facility] BASIC METABOLIC PANEL (non-fast ing) CHLORIDE [MOLES/VOLU ME] IN SERUM OR PLASMA 97 mmol/L 100 - 110 09/06 L Specimen Type: SERUM No comment entered. Ordering Provider: JOSÉ RILEY Report Released Date/Time: Jul 16, 2024 02:39 PM Reporting Lab: [facility] [place] [facility] [address] [facility] [address] Performing Lab: [facility] [address] [facility] [address] [facility] WSN [facility] BASIC METABOLIC PANEL (non-fast ing) CARBON DIOXIDE, TOTAL [MOLES/VOLU ME] IN SERUM OR PLASMA 27 meq/L 20 - 30 09/06 Specimen Type: SERUM No comment entered. Ordering Provider: JOSÉ RILEY Report Released Date/Time: Jul 16, 2024 02:39 PM Reporting Lab: [facility] [address] [facility] [address] Performing Lab: [facility] CHILDRENUSE[address] [address] [facility]ITAL[facility]ITALN [facility] BASIC METABOLIC PANEL (non-fast ing) CREATININE [MASS/VOLUM E] IN SERUM OR PLASMA 0.89 mg/dL 0.50 - 1.40 09/06 Specimen Type: SERUM No comment entered. Ordering Provider: JOSÉ RILEY Report Released Date/Time: Jul 16, 2024 02:39 PM Reporting Lab: [facility] [address] [facility] [address] Performing Lab: [facility] CHILDRENUSE[address] [address] [facility] TRN [facility]ENUSE [facility] BASIC METABOLIC PANEL (non-fast ing) GLOMERULAR FILTRATION RATE/1.73 SQ M.PREDICTED [VOLUME RATE/AREA] IN SERUM, PLASMA OR BLOOD BY CREATININE- BASED FORMULA (CKD-EPI 2020) >90mL/ min 60 09/06 Specimen Type: SERUM No comment entered. Ordering Provider: JOSÉ RILEY Report Released Date/Time: Jul 16, 2024 02:39 PM Reporting Lab: [facility]ILDRENUSE[address] [address] Performing Lab: [facility] [address] [facility] LIPID PANEL, NON FASTING CHOLESTEROL [MASS/VOLUM E] IN SERUM OR PLASMA 154 mg/dL 09/06 Specimen Type: SERUM No comment entered. Ordering Provider: BETSY BRADLEY Report Released Date/Time: Sep 01, 2024 12:06 PM Reporting Lab: [facility]USE[address] [address] Performing Lab: [facility]ENUSE[address] [address] [facility] LIPID PANEL, NON FASTING TRIGLYCERID E [MASS/VOLUM E] IN SERUM OR PLASMA 71 mg/dL 0 - 150 09/06 Specimen Type: SERUM No comment entered. Ordering Provider: BETSY BRADLEY Report Released Date/Time: Sep 01, 2024 12:06 PM Reporting Lab: [facility]ENUSE[address] [address] Performing Lab: [facility]DRENUSE[address] [address] [facility] LIPID PANEL, NON FASTING CHOLESTEROL IN LDL [MASS/VOLUM E] IN SERUM OR PLASMA BY CALCULATION 67 mg/dL 0 - 129 09/06 Specimen Type: SERUM No comment entered. Ordering Provider: BETSY BRADLEY Report Released Date/Time: Sep 01, 2024 12:06 PM Reporting Lab: [facility]ENUSE[address] [address] Performing Lab: [facility]TRN [facility]ENUSE[address] [address] [facility]ENUSE [facility] LIPID PANEL, NON FASTING CHOLESTEROL .TOTAL/CHOL ESTEROL IN HDL [MASS RATIO] IN SERUM OR PLASMA 2.1 09/06 Specimen Type: SERUM No comment entered. Ordering Provider: BETSY BRADLEY Report Released Date/Time: Sep 01, 2024 12:06 PM Reporting Lab: [facility]ILDRENUSE[address] [address] Performing Lab: [facility] [place] [facility] [address] [facility] [address] [facility] [place] [facility] LIPID PANEL, NON FASTING CHOLESTEROL IN HDL [MASS/VOLUM E] IN SERUM OR PLASMA 73 mg/dL 40 - 60 09/06 H Specimen Type: SERUM No comment entered. Ordering Provider: BETSY BRADLEY Report Released Date/Time: Sep 01, 2024 12:06 PM Reporting Lab: [facility] [place] [facility] [address] [facility] [address] Performing Lab: [facility] [place] [facility] [address] [facility] [address] [facility] [place] [facility] CBC LEUKOCYTES [#/VOLUME] IN BLOOD BY AUTOMATED COUNT 7.38 10*3/u L 4.50 - 11.00 09/06 Specimen Type: BLOOD No comment entered. Ordering Provider: BETSY BRADLEY Report Released Date/Time: Sep 01, 2024 12:06 PM Reporting Lab: [facility] [place] [facility] [address] [facility] [address] Performing Lab: [facility] [place] [facility] [address] [facility] [address] [facility] [place] [facility] CBC ERYTHROCYTE S [#/VOLUME] IN BLOOD BY AUTOMATED COUNT 5.30 10*6/u L 4.23 - 5.66 09/06 Specimen Type: BLOOD No comment entered. Ordering Provider: BETSY BRADLEY Report Released Date/Time: Sep 01, 2024 12:06 PM Reporting Lab: [facility] [place] [facility] [address] [facility] [address] Performing Lab: [facility] [place] [address] [address] [facility] [place] [facility] CBC HEMOGLOBIN [MASS/VOLUM E] IN BLOOD 17.9 g/dL 12.8 - 17 09/06 H Specimen Type: BLOOD No comment entered. Ordering Provider: BETSY BRADLEY Report Released Date/Time: Sep 01, 2024 12:06 PM Reporting Lab: [facility] [place] [facility] [address] [facility] [address] Performing Lab: [facility] [place] [facility] [address] [facility] [address] [facility] [place] [facility] CBC HEMATOCRIT [VOLUME FRACTION] OF BLOOD BY AUTOMATED COUNT 49.7 39.2 - 50.4 09/06 Specimen Type: BLOOD No comment entered. Ordering Provider: BETSY BRADLEY Report Released Date/Time: Sep 01, 2024 12:06 PM Reporting Lab: [facility] [place] [facility] [address] [facility] [address] Performing Lab: [facility] [place] [facility] [address] [facility] [address] [facility] [place] [facility] CBC MCV [ENTITIC VOLUME] BY AUTOMATED COUNT 93.8 fL 82 - 99 09/06 Specimen Type: BLOOD No comment entered. Ordering Provider: BETSY BRADLEY Report Released Date/Time: Sep 01, 2024 12:06 PM Reporting Lab: [facility] [place] [facility] [address] [facility] [address] Performing Lab: [facility] [place] [facility] [address] [facility] [address] [facility] [place] [facility] CBC MCHC [MASS/VOLUM E] BY AUTOMATED COUNT 36.0 g/dL 30.8 - 35.1 09/06 H Specimen Type: BLOOD No comment entered. Ordering Provider: BETSY BRADLEY Report Released Date/Time: Sep 01, 2024 12:06 PM Reporting Lab: [facility] [place] [facility] [address] [facility] [address] Performing Lab: [facility] [place] [facility] [address] [facility] [address] [facility] [place] [facility] CBC PLATELETS [#/VOLUME] IN BLOOD BY AUTOMATED COUNT 150 10*3/u L 140 - 360 09/06 Specimen Type: BLOOD No comment entered. Ordering Provider: BETSY BRADLEY Report Released Date/Time: Sep 01, 2024 12:06 PM Reporting Lab: [facility] [place] [facility] [address] [facility] [address] Performing Lab: [facility] [place] [facility] [address] [facility] [address] [facility] [place] [facility] CBC ERYTHROCYTE DISTRIBUTIO N WIDTH [RATIO] BY AUTOMATED COUNT 12.8 12.0 - 16.0 09/06 Specimen Type: BLOOD No comment entered. Ordering Provider: BETSY BRADLEY Report Released Date/Time: Sep 01, 2024 12:06 PM Reporting Lab: [facility] [place] [facility] [address] [facility] [address] Performing Lab: [facility] [place] [facility] [address] [facility] [address] [facility] [place] [facility] CBC MCH [ENTITIC MASS] BY AUTOMATED COUNT 33.8 pg 26.2 - 32.6 09/06 H Specimen Type: BLOOD No comment entered. Ordering Provider: BETSY BRADLEY Report Released Date/Time: Sep 01, 2024 12:06 PM Reporting Lab: [facility] [place] [facility] [address] [facility] [address] Performing Lab: [facility] [place] [facility] [address] [facility] [address] [facility] [place] [facility] LIVER FUNCTION PROTEIN [MASS/VOLUM E] IN SERUM OR PLASMA 7.1 g/dL 6.0 - 8.3 09/06 Specimen Type: SERUM No comment entered. Ordering Provider: BETSY BRADLEY Report Released Date/Time: Sep 01, 2024 12:06 PM Reporting Lab: [facility] [place] [facility] [address] [facility] [address] Performing Lab: [facility] [place] [facility] [address] [place] [address] [facility] [place] [facility] LIVER FUNCTION ALBUMIN [MASS/VOLUM E] IN SERUM OR PLASMA 3.9 g/dL 3.5 - 5.0 09/06 Specimen Type: SERUM No comment entered. Ordering Provider: BETSY BRADLEY Report Released Date/Time: Sep 01, 2024 12:06 PM Reporting Lab: [facility] [place] [facility] [address] [facility] [address] Performing Lab: [facility] [place] [facility] [address] [facility] [address] [facility] [place] [facility] LIVER FUNCTION ALKALINE PHOSPHATASE [ENZYMATIC ACTIVITY/VO LUME] IN SERUM OR PLASMA 116 U/L 40 - 150 09/06 Specimen Type: SERUM No comment entered. Ordering Provider: BETSY BRADLEY Report Released Date/Time: Sep 01, 2024 12:06 PM Reporting Lab: [facility] [place] [facility] [address] [facility] [address] Performing Lab: [facility] [place] [facility] [address] [facility] [address] [facility] [place] [facility] LIVER FUNCTION ASPARTATE AMINOTRANSF ERASE [ENZYMATIC ACTIVITY/VO LUME] IN SERUM OR PLASMA 38 U/L 5 - 34 09/06 H Specimen Type: SERUM No comment entered. Ordering Provider: BETSY BRADLEY Report Released Date/Time: Sep 01, 2024 12:06 PM Reporting Lab: [facility] [place] [facility] [address] [facility] [address] Performing Lab: [facility] [place] [facility] [address] [facility] [address] [facility] [place] [facility] LIVER FUNCTION ALANINE AMINOTRANSF ERASE [ENZYMATIC ACTIVITY/VO LUME] IN SERUM OR PLASMA 29 U/L 09/06 Specimen Type: SERUM No comment entered. Ordering Provider: BETSY BRADLEY Report Released Date/Time: Sep 01, 2024 12:06 PM Reporting Lab: [facility] [place] [facility] [address] [facility] [address] Performing Lab: [facility] [place] [facility] [address] [facility] [address] [facility] [place] LIVER FUNCTION BILIRUBIN.T OTAL [MASS/VOLUM E] IN SERUM OR PLASMA 1.2 mg/dL 0.2 - 1.2 09/06 Specimen Type: SERUM No comment entered. Ordering Provider: BETSY BRADLEY Report Released Date/Time: Sep 01, 2024 12:06 PM Reporting [facility]: [facility] [address] Performing Lab: [facility] [address] [address] [facility] LIVER FUNCTION BILIRUBIN.D IRECT [MASS/VOLUM E] IN SERUM OR PLASMA 0.6 mg/dL 0 - 0.5 09/06 H Specimen Type: SERUM No comment entered. Ordering Provider: BETSY BRADLEY Report Released Date/Time: Sep 01, 2024 12:06 PM Reporting Lab: [facility] [address] Performing Lab: [facility] [address] [place], [place] [address] [facility] COPEPTIN COPEPTIN 7.3 07/14 Specimen Type: SERUM Comment: REFERENCE RANGE: <= 13.7 pmol/L This test was developed and its analytical performance characteris tics have been determined by [employer] . It has not been cleared or approved by FDA. This assay has been validated pursuant to the CLIA regulations and is used for clinical purposes. Test performed by [employer] [address] [place] [address] Phone: Front Office Medical Assistant: Estela Barlow MD,PHD,PATSY Test Reported by [employer] [place], [facility] [employer] [place], [address] [place] [address] Seamus Joseph M.D., Ph.D., Director of Laboratorie s , CLIA [id number] TEST PERFORMED AT: , Ordering Provider: JOSÉ RILEY Report Released Date/Time: Jul 13, 2024 09:00 AM Reporting Lab: [facility] [place] [facility] [address] [facility] [address] Performing Lab: [facility] [place] [facility] [address] [address] [facility] [place] OSMOLALIT Y (SERUM) OSMOLALITY OF SERUM OR PLASMA 267 280 - 300 07/14 L Specimen Type: SERUM Comment: Manually entered by: RTO Ordering Provider: JOSÉ RILEY Report Released Date/Time: Jul 13, 2024 09:00 AM Reporting Lab: [facility] [place] [facility] [address] [facility] [address] Performing Lab: [facility] [place] [facility] [address] [facility] [address] [facility] [place] [facility] Vital Signs Combined list of inpatient and outpatient Vital Signs from Department of Defense and Veterans Affairs, ranging from 12 months to all on record, depending upon the facility. Vital Sign Value Date Comments Source SYSTOLIC BLOOD PRESSURE 117 03/02/20 25 11:02:54 [facility] [place] DIASTOLIC BLOOD PRESSURE 24 025 11:02:54 [facility] [place] PULSE OXIMETRY 93 03/02/2025 11:02:54 [facility] WEIGHT 204 03/02/2025 11:02:54 [facility] BMI 31 kg/m2 03/02/2025 11:02:54 [facility] PAIN 0 03/02/2025 11:02:54 [facility] HEIGHT 68 03/02/2025 11:02:54 [facility] TEMPERATURE 98.9 03/02/2025 11:02:54 [facility] [place] PULSE 112 03/02/2025 11:02:54 [facility] RESPIRATION 22 03/02/2025 11:02:54 [facility] [place] SYSTOLIC BLOOD PRESSURE 101 01/21/20 25 07:59:58 [...] 07/22/2024 07:54:08 [facility] [place] Encounters Combined [...] [facility] [place] [id number] [facility] [place] En[facility] [id number] 12/28 [facility] En[facility] [id number] 12/28 [facility] [place] En[facility] [id number] 12/29 [facility] OFFICE O/P EST MOD 30 MIN [id number] Diagnos is: ICD-10- CM 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 RHONDA RILEY 01/20 [facility] En[facility] [id number] 01/20 [facility] En[facility] [id number] 01/24 [facility] [place] En[facility] [id number] 03/04 [facility] [place] OFFICE O/P EST LOW 20 MIN [id number] Diagnos is: ICD-10- CM R91.1 Solitar y pulmona ry Meseret Iyer 03/12 [facility] En[facility] [id number] 03/24 [facility] Encounter [id number] 04/01 [facility] Encounter [id number] 07/13 [facility] Encounter [id number] Diagnos is: ICD-10- CM 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 RHONDA RILEY 07/13 [facility] [place] [facility] Outpatient Encounter [id number] 07/16 [facility] OFFICE O/P EST MOD 30 MIN [id number] Diagnos is: ICD-10- CM 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 ROSEMARYALI CE 07/22 [facility] IMMUNIZATI ON ADMIN [id number] Diagnos is: ICD-10- CM E03.9 Hypothy roidism , unspeci fied VIETTripp,EDILMA E M 07/22 [facility] En[facility] [id number] 09/08 [facility] [place] [place] [facility] OFFICE O/P EST HI 40 MIN [id number] 1. Diagnos is: ICD-10- CM J44.9 Chronic obstruc tive pulmona ry disease , unspeci fied Meseret BRADLEY J 09/14 [facility] [place] [facility] Outpatient Encounter [id number] 09/14 [facility] [place] [place] [facility] PRO PHONE CALL 11-20 MIN [id number] Diagnos is: ICD-10- CM J44.9 Chronic obstruc tive pulmona ry disease , unspeci fied JARMOLOWIC ZITA 09/17 [facility] En[facility] [id number] 10/18 [facility] [place] En[facility] [id number] 10/18 [facility] [place] En[facility] [id number] 11/25 [facility] [place] NQHP OL DIG ASSMT&MGMT 08-25 [id number] Diagnos is: ICD-10- CM J44.9 Chronic obstruc tive pulmona ry disease , unspeci fied SOVEROW,CH RISTY A 11/26 [facility] En[facility] [id number] 12/13 [facility] [place] En[facility] [id number] 12/27 [facility] [place] Encounter [id number] 01/06 [facility] MTMS BY PHARM TOLL LINE MECHANIC 15 MIN [id number] Diagnos is: ICD-10- CM J44.9 Chronic obstruc tive pulmona ry disease , unspeci fied GDULA,JEANINE A 01/06 [facility] En[facility] [id number] 01/20 [facility] En[facility] [id number] 01/20 [facility] [place] [facility] OFFICE O/P EST MOD 30 MIN [id number] Diagnos is: ICD-10- CM 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/o current patholo eze phan e RHONDA RILEY 01/20 [facility] [place] [facility] ELECTROCAR DIOGRAM REPORT [id number] Diagnos is: ICD-10- CM Z13.6 Encount er for screeni ng for cardiov ascular disorde rs RAY PURCELL 01/20 [place] [facility] [place] [facility] Outpatient Encounter [id number]/20 [facility] [place] [facility] [place] [facility] Outpatient Encounter [id number]/20 [facility] [place] [facility] [place] [facility] ELECTROCAR DIOGRAM TRACING [id number] Diagnos is: ICD-10- CM R00.0 Tachyca rdia, unspeci fied COBB,GR MY 01/20 [facility] [place] [facility] [place] [facility] Outpatient Encounter [id number] 01/21 [facility] [place] [facility] [place] [facility] Outpatient Encounter [id number] 1.01/21 [facility] [place] ([facility] MTMS BY PHARM EST 15 MIN [id number] Diagnos is: ICD-10- CM Z79.01 jail (curren t) use of anticoa gulants JYOTI,ALB CHRISTIANA GOLDIE 01/21 [facility] [address] ([facility]) [facility] [place] [facility] PH1 ASSMT&MGMT NQHP 5-10 [id number] Diagnos is: ICD-10- CM 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 destiniia SALENAEDILMA Almaguer M 01/24 [facility] [place] [place] [id number] Diagnos is: ICD-10- CM H25.813 Combine d forms of age-rel ated catarac t, karma al LEONEL,AN AMARILIS E 01/24 [facility] CPTRZ OPH DX IMG PST SGM RTA [id number] Diagnos is: ICD-10- CM H53.143 Visual discomf ort, karma Patel,AN AMARILIS E 01/24 [facility] Out[facility] Encounter [id number] 02/02 [facility] [place] [facility] BRIEF COMUNICAJ TECH-BSD [facility] [id number] Diagnos is: ICD-10- CM 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 RHONDA RILEY 02/04 [facility] En[facility] [id number] 02/14 [facility] Encounter [id number] 02/15 [facility] Encounter [id number] 02/17 [facility] En[facility] [id number] 02/21 [facility] [place] [facility] MTMS BY PHARM EST 15 MIN [id number] Diagnos is: ICD-10- CM Z51.81 Encount er for therape utic drug level monitor altagracia MEIGWENAYESHA STEPHANE J 02/21 [facility] PH1 ASSMT&MGMT NQHP 5-10 [id number] Diagnos is: ICD-10- CM J44.9 Chronic obstruc tive pulmona ry disease , unspeci fied ITA ELLIS A 02/21 [facility] [place] [facility] [place] NQHP OL DIG ASSMT&MGMT 5-10 [id number] Diagnos is: ICD-10- CM Z79.01 jail (curren t) use of anticoa gulanMILANA Parada 02/23 [facility] [place] Outpatient Encounter [id number] 03/01 [facility] [place] OFFICE O/P EST MOD 30 MIN [id number] Diagnos is: ICD-10- CM J44.9 Chronic obstruc tive pulmona ry disease , unspeci fied Meseret BRADLEY 03/02 [facility] En[facility] [id number] 03/03 [facility] Encounter [id number] 03/08 [facility] Encounter [id number] 03/11 [facility] Encounter [id number] 03/15 [facility] Encounter [id number] 03/16 [facility] [place] [facility] MTMS BY PHARM EST 15 MIN [id number] Diagnos is: ICD-10- CM Z51.81 Encount er for therape utic drug level monitor AYESHA Garcia 03/21 [facility] En[facility] [id number] 04/13 [facility] Encounter [id number] 05/09 [facility] Encounter [id number] 05/11 [facility] Encounter [id number] 05/24 [facility] [place] PH1 ASSMT&MGMT NQHP 5-10 [id number] Diagnos is: ICD-10- CM J44.9 Chronic obstruc tive pulmona ry disease , unspeci fied JARMOLOWIC ZITA A 05/27 [facility] [place] [facility] Social History Combined list of available smoking, tobacco, and other social history from Department of Defense and Veterans Affairs facilities. Social History Type Response Date Comment Sourc e Tobacco smoking status NHIS VA-TOBACCO USE EVERY DAY CIGARETTES [facility] [facility] History of tobacco use VA-TOBACCO NEVER USED OTHER TYPE 09/14/2024 [facility] [place] [facility] History of tobacco use VA-TOBACCO USER EVERY DAY [facility] [place] [facility] History [facility] tobacco use VA-TOBACCO USER EVERY DAY 10/01[facility]20[facility] [place] [facility] History [facility] tobacco use VA-TOBACCO USER EVERY DAY 09/07/20[facility] [place] [facility] History [facility] tobacco use VA-TOBACCO USER EVERY DAY 06/08/[facility] [place] [facility] History of tobacco use VA-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 Additional future care activities may be listed in the Assessment and Plan section. Date/Time Care Activity Care Activity Detail Facili ty 06/30/2025 AMBULATORY - MEDICINE [facility] [place] [facility]
[2025-05-31 09:50] VITALS: BP 110/58; PULSE 104; O2SAT 92; BMI 28.7
--- NOTE | 2025-05-31 09:50 | A.OFFVIS_ITS ---
Vital Signs 05/31/25 09:50 Height 5 ft 8 in Weight 189 lb BMI 28.7 BP 110/58 L Blood Pressure Location Rt brachial Position Sitting Pulse 104 H Pulse Source Pulse Oximeter Pulse Oximetry (%) 92 Oxygen Delivery Method Room Air Intake Visit Reasons: COPD Allergies hydrochlorothiazide Adverse Reaction (Severe, Verified 05/31/25 09:55) Rash HPI HPI COPD: Details: 69-year-old gentleman with underlying history of previously on COPD on 3 L, AFib with prior episodes of RVR, hypothyroidism, alcohol dependence with recent admission for dyspnea and hypoxia here for follow-up. Patient continues on Spiriva, Advair, albuterol MDI/nebs, and theophylline with reasonable baseline control of his COPD. At this time he does not require supplemental oxygen during the day, but appears to have nocturnal hypoxemia. He is not interested in sleep apnea evaluation. [facility] Medical History (Updated 05/31/25 @ 10:47 by Salvador Ramos MD) COPD (chronic obstructive pulmonary disease) Alcohol use disorder Tobacco use disorder Acute CHF Chronic obstructive pulmonary disease with (acute) exacerbation Alcohol use Pulmonary nodules Supplemental oxygen dependent Atrial fibrillation with RVR Hypothyroid Social History Household Members: Family Housing: House Do you presently have visiting nurse or other home services: No Alcohol intake: current Comment: refusing HFR alarms Patient Tobacco Use Status: Former Tobacco user Tobacco use type: Cigarette Cigarette Packs Per Day: 0.5 Cigarettes Per Day: 10.0 Years Smoked: started at age 12, 2-3 PPD, quit 10/16/2024 service: No Review of Systems Const Denies daytime sleepiness, Denies excessive sweating, Denies fatigue, Denies fever(s), Denies lethargy, Denies malaise, Denies night sweats, Denies snoring and Denies weight loss Eyes Denies blurry vision and Denies itchy eyes ENT Denies nasal congestion, Denies post nasal drip, Denies sinus pain, Denies sinus pressure and Denies other ( Thrush) Card Denies chest pain, Denies pedal edema, Denies dyspnea, Denies orthopnea and Denies paroxysmal nocturnal dyspnea Resp Denies cough, Denies hemoptysis, Denies excessive phlegm production, Denies dyspnea, Denies snoring and Denies wheezing GI Denies abdominal pain and Denies heartburn Musc Denies myalgias, Denies arthralgias and Denies joint swelling Skin/Breast Denies rash Neuro Denies memory loss and Denies seizure-like activity Psych Denies abnormal sleep pattern, Denies anxiety and Denies memory loss Endo Denies excessive sweating, Denies fatigue and Denies heat intolerance Saw/Lymph Denies easy bruising Aller/Immun Denies itchy eyes, Denies seasonal rhinorrhea and Denies wheezing Physical Exam Vital Signs: Last Vital Signs Pulse 104 H 05/31/25 09:50 BP 110/58 L 05/31/25 09:50 Pulse Ox 92 05/31/25 09:50 Oxygen Delivery Method Room Air 05/31/25 09:50 BMI result Body Mass Index 28.7 Const General: no acute distress and alert Nutritional Appearance: not obese Orientation/consciousness: Other orientation findings ( oriented) HEENT Head: Yes atraumatic Eyes General: appearance normal, both eyes and all related structures Sclerae: sclerae normal EOM: EOMs intact bilaterally Neck Neck: Yes supple Lymphatic: no lymphadenopathy noted Resp Effort & Inspection: normal respiratory effort and no use of accessory muscles Auscultation: clear to auscultation bilaterally Cardio Rate: regular rate Rhythm: regular rhythm Heart sounds: no gallops, no murmurs and no rubs Skin General skin exam: other ( warm) Extrem General: No clubbing, No cyanosis and No edema Assessment & Plan Assessment & Plan (1) COPD (chronic obstructive pulmonary disease): Code(s): J44.9 - Chronic obstructive pulmonary disease, unspecified Category: Medical Plan: Reasonable baseline control on Spiriva, Advair, theophylline, and albuterol M DI/nebs. Continue current regimen. (2) Nocturnal hypoxemia: Code(s): G47.34 - Idiopathic sleep related nonobstructive alveolar hypoventilation Category: Medical Plan: Previously noted episodes of nocturnal hypoxemia. Will obtain overnight oximetr y. (3) Personal history of nicotine dependence: Code(s): Z87.891 - Personal history of nicotine dependence Category: Medical Plan: Results of lung cancer screening CT chest from March of 2025 reviewed, no worrisome nodules. Continue with yearly screening, next in March of 2026. Orders: Orders Overnight Pulse Oximetry Today J44.9 - Chronic obstructive pulmonary disease, unspecified Coding Level of Care Code Est Pt Level 4 (39924) Complex EM visit Add On G2211 Diagnoses COPD (chronic obstructive pulmonary disease) J44.9 Nocturnal hypoxemia G47.34 Personal history of nicotine dependence Z87.891
--- OUTSIDE RECORDS SUMMARY | 2025-05-31 10:30 | XMS_ITS | Clinical Summary ---
Author Organization [facility] Address [address] [place] [address] [place] [address] Phone Care Team Providers Care Pool Attendant Name Role Phone Artie Lentz NP Primary Care Provide r Allergies No known active allergies Medications apixaban (ELIQUIS) 5 mg tablet Take 1 tablet (5 mg total) by mouth 2 (two) times a day. 60 tablet 5 Active Additional Information Patient not taking.Reported on 03/15/2025 cholecalciferol (VITAMIN D3) 25 MCG (1,000 unit) tablet Take 25 mcg by mouth. 5 Active atorvastatin (LIPITOR) 40 MG tablet Take 20 mg by mouth. 4 Active fluticasone propion-salmete roL (ADVAIR DISKUS) 250-50 mcg/dose DISKUS Inhale into the lungs. 4 Active albuterol 2.5 mg /3 mL (0.083 %) nebulizer solution Inhale into the lungs. 4 Active rivaroxaban (XARELTO) 20 mg Tab Take 20 mg by mouth. 5 Active levothyroxine (SYNTHROID, LEVOTHROID) 75 MCG tablet Take 75 mcg by mouth. 5 Active furosemide (LASIX) 40 MG tablet Take 40 mg by mouth. 5 Active tiotropium bromide (SPIRIVA RESPIMAT) 2.5 mcg/actuation mist for inhalation Inhale into the lungs. 4 Active dilTIAZem (TIAZAC) 180 MG 24 hr capsule Take 2 capsules (360 mg total) by mouth daily. 90 capsule 3 Active Active Problems Problem Noted Date Diagnosed Date Benign essential hypertension 03/15/2025 Assessment & Plan (03/15/2025 8:04 AM EDT): Well-controlled at this time it is slightly elevated and diltiazem is a relatively weak antihypertensive medication I do not anticipate going too low on his blood pressure with the doubling of his diltiazem Paroxysmal atrial fibrillation 03/15/2025 Assessment & Plan (03/15/2025 8:04 AM EDT): There is no way to know how long he has been in atrial fibrillation probably a long time he does not feel that he is on anticoagulation but heart rate could be better controlled I am going to double the diltiazem we will check an echo in a month and a monitor for a week in 2 months Current smoker 03/15/2025 Assessment & Plan (03/15/2025 8:05 AM EDT): I cautioned him on this COPD (chronic obstructive pulmonary disease) 07/2025 Assessment & Plan (03/15/2025 8:04 AM EDT): He still smokes an occasional cigarette which I cautioned him on he has severe oxygen dependent lung disease Pure hypercholesterolemia 03/15/2025 Assessment & Plan (03/15/2025 8:05 AM EDT): LDL should be less than 100 and preferably less than 70 he is on high intensity statin therapy in the form of Lipitor 40 mg daily Encounters Date Type Department Care Team Description 04/20/2025 Orders Only [facility] [address], [address] [place] [address] Sherwin Canada, 04/13/2025 7:02 AM EDT - 04/13/2025 11:59 PM EDT Hospital Encounter [facility] [place] [address] Sherwin Canada, DO Discharge Disposition: Home or Self Care 03/29/2025 Telephone [facility] [address], [address] [place] [address] Sherwin Canada, DO Atrial Fibrillation 03/15/2025 7:45 AM EDT Office Visit [facility] [address], [address] [place] [address] Sherwin Canada, DO Benign essential hypertension (Primary Dx); Paroxysmal atrial fibrillation; Current smoker; Simple chronic bronchitis; Pure hypercholesterolemia 03/15/2025 Procedure Pass [facility] [address] [place] [address] from Last 3 Months Social History Tobacco Use Types Packs/Day Years [...] on file Sexual Orientation Not on file Last Filed Vital Signs Vital Sign Reading Time Taken Comments Blood Pressure 134/62 03/15/2025 7:40 AM EDT Pulse 97 03/15/2025 7:40 AM EDT Temperature 36 C (96.8 F) 01/20/2025 4:13 PM EDT Respiratory Rate 20 01/20/2025 4:13 PM EDT Oxygen Saturation 99% 03/15/2025 7:40 AM EDT Inhaled Oxygen Concentration - - Weight 92.1 kg (203 lb) 03/15/2025 7:40 AM EDT Height 175.3 cm (5' 9.02 ) 03/15/2025 7:40 AM ED T Body Mass Index 29.96 03/15/2025 7:40 AM EDT Plan of Treatment Upcoming Encounters Date Type Department Care Team (Late st Contact Info) Description 08/22/2025 7:45 AM EST Office Visit [facility] [address] [place] [address] [address]rd Floor, [address] [place] [address] Sherwin Canada, 22 [facility] [address] [place] [address] Health Maintenance Due Date Last Done Comments LIPID PANEL 1953 TSH LEVEL 1953 DEPRESSION SCREENING 1965 SMOKING Hx and SMOKELESS TOBACCO SCREENING 1966 HEPATITIS C SCREENING 1971 PNEUMOCOCCAL VACCINES (50+ years) (1 of 2 - PCV) 1972 COLOGUARD 1998 COLONOSCOPY 1998 COLORECTAL CANCER SCREENING 1998 FIT TEST 1998 FOBT 1998 SIGMOIDOSCOPY 1998 VIRTUAL COLONOSCOPY 1998 RSV VACCINE (1 - Risk 60-74 years 1-dose series) 2013 ABDOMINAL AORTIC ANEURYSM (AAA) SCREENING 2018 COVID-19 VACCINE (1 - 2023-2 5 season) 2024 BLOOD PRESSURE 09/14/2025 03/15/2025 CREATININE LEVEL 01/20/2026 01/20/2025 Adult Td,Tdap Booster 04/16/2028 04/16/2018 ZOSTER VACCINES Completed 09/04/2020, 06/08/2020 HEPATITIS A VACCINES Aged Out No long er eligible based on patient's age to complete this topic HIB VACCINES Aged Out No longer eligi ble based on patient's age to complete this topic MENINGOCOCCAL VACCINES (ACWY) Aged Out No longer eligible based on patient's age to complete this topic MENINGOCOCCAL VACCINES (B) Aged Out N o longer eligible based on patient's age to complete this topic Medical Devices Not on file Procedures Procedure Name Priority Date/Time Associated Diagnosis Comments OUTSIDE MONITOR Routine 04/20/2025 8:45 AM EDT TTE COMPREHENSIVE Routine 04/13/2025 8:0 8 AM EDT Paroxysmal atrial fibrillation BASIC METABOLIC PANEL STAT 01/20/2025 10:31 AM EDT from Last 3 Months or Most Recently Relevant to Health Maintenance Results * Outside Monitor Report Only (04/20/2025 8:45 AM EDT) us Sherwin Canada DO CV CARDIAC SERVICES ORDERABLE S Final Result * TTE COMPREHENSIVE (04/13/2025 8:08 AM EDT) Height 175 cm Weight 92 kg Systolic BP 117 mmHg Diastolic BP 55 mmHg Interventricular Septum Thickness 11 6 - 11 mm Left Ventricle Internal Diameter End Diastole 47 42 - 58 mm Left Ventricle Internal Diameter End Systole 31 <40 mm Left Ventricular Outflow Tract Diameter 19.0 mm Left Ventricular Posterior Wall Thickness 11 6 - 11 mm Left Ventricle Ea Lateral Wave Speed 8.7 cm/s Left Ventricle Ea Septal Wave Speed 6.6 cm/s Ejection Fraction 70 50 - 75 Percent Left Atrium Dimension Anterior-Posterior 38 15 - 40 mm Aortic Valve Regurgitation Pressure Half Time 343 ms Aortic Valve Peak Velocity 2.5 m/s Aortic Valve Peak Gradient 24 mmHg Aortic Valve Mean Gradient 13 mmHg Aortic Valve Time Velocity Integral 386.0 mm Aortic Arch Diameter 32 mm Aortic Sinus Diameter 39 <40 mm Ascending Aorta Diameter 42 <36 mm Mitral Valve Deceleration Time 243 ms Left Ventricle A Wave Speed 108.0 cm/s Left Ventricle E Wave Speed 85.9 cm/s Mitral Valve Mean Gradient 2 mmHg Mitral Valve Peak Gradient 5 mmHg Mitral Valve Area Continuity Equation 2.70 cm2 Pulmonary Valve Peak Velocity 1.2 m/s Pulmonary Valve Peak Gradient 6 mmHg Right Ventricle Basal Diameter 33 25 - 41 mm Tricuspid Valve Peak Velocity 3.2 m/s Raw LV EF% 56 % MV E/E' Tissue Velocity Lateral 9.87 Relative Wall Thickness 0.47 0.22 - 0.42 MV E/A ratio 0.8 MV E/e' septal 13.02 Left Ventricle E/e' Average 11.4 Aortic Valve Prosthetic Peak Gradient 24 mmHg Aorta Sinus Index by Height 2.23 cm/m Aorta Sinus CSA index by Height 6.82 cm2/m Asc Aorta CSA Index by Height 7.91 cm2/m Mitral Valve Prosthetic Peak Gradient 5 mmHg Mitral Valve Prosthetic Mean Gradient 2 mmHg Right Ventricle to Right Atrium Pressure Gradient 41 mmHg Right Ventricle Peak Systolic Pressure (Assuming RAP 10) 51 mmHg MGB CV ECHO TV RVSP (ASSUMING RAP OF 5) 46 mmHg RVSP (Exclusive of RAP) 41 mmHg Pulmonic Valve Prosthetic Peak Gradient 6 mmHg Echo E/Ea 13.02 Right Ventricle TAPSE 18 >=17 mm Right Ventricle Pulse Doppler S Wave 15.9 >=9.5 cm/s Left Atrial Volume 45 mL Left Atrial Volume Index by Height 26 mL/m Aortic Valve Prosthetic Mean Gradient 13 mmHg Body Surface Area 2.08 m2 Left Atrial Volume Index 22 16 - 34 mL/m2 Right Ventricle Peak Systolic Pressure 44 mmHg Left Ventricle indexed to BSA 90.2 g/m2 Right Atrium Area 17 cm2 Right Atrium Area index 8 cm2/m2 Aortic Valve Vena Contracta 65 mm Aortic Valve Sinus Index by BSA 19 mm/m2 Ascending Aorta Index 20 mm/m2 Right Atrium Pressure Estimated 3 mmHg Ascending Aorta Index 20 mm Aortic Sinus Index 19 mm Ascending Aorta Diameter 20 mm Aortic Valve Sinus Index 1 19 20 - 32 mm AO ASC DIAM BSA INDEX 20.19 Anatomical Region Laterality Modality Heart Ultrasound Narrative 04/13/2025 9:14 AM EDT Images from the original result were not included. 1. The indication for the study is atrial fibrillation. The patient is in atrial fibrillation and rapid ventricular response during the study. The estimated ejection fraction is normal to hyperdynamic at 65 to 70%. Diastolic function could not be assessed there is borderline concentric LVH and regional wall motion is all normal. 2. Normal RV size and function. 3 there is a trileaflet aortic valve the mean gradient across the valve is 13 mmHg it is mildly calcified the peak gradient is 24 mmHg the peak velocity is 2.5 m/s. There is moderate aortic regurgitation the pressure half-time is 343 ms. 4. Trace mitral and trace tricuspid sufficiency, the PA pressure is mildly elevated at 44 mmHg. 5. Normal pericardium and there is no prior echo available for comparison. Left Ventricle The left ventricle is normal in size. There is borderline concentric hypertrophy. There is normal left ventricular systolic function. The LV ejection fraction is 65-70% (visually estimated). Simpsons biplane EF 70%. LV diastolic function could not be adequately assessed. Right Ventricle The right ventricle is normal in size. The RV basal dimension is 33 mm. There is normal right ventricular systolic function. TAPSE is 18 mm. RV S' wave is 15.9 cm/s. Left Atrium The left atrium is normal in size. The left atrial volume index by BSA is 22 mL/m2. Right Atrium The right atrium is normal in size. The right atrial area is 17 cm2. Mitral Valve There is mild thickening of both mitral leaflets. There is no mitral stenosis. There is trace mitral regurgitation. Tricuspid Valve The tricuspid valve appears normal. There is no tricuspid stenosis. There is trace tricuspid regurgitation. The RV systolic pressure was calculated at 44 mmHg (using TR peak velocity of 3.2 m/s and assuming an RA pressure of 3 mmHg). Aortic Valve The aortic valve is tricuspid. There is leaflet thickening without stenosis. There is mild aortic stenosis. The aortic valve peak velocity is 2.5 m/s. The peak and mean aortic valve gradients are 24 mmHg and 13 mmHg respectively. There is moderate aortic regurgitation. Jet direction is posteriorly directed. The vena contracta is 65 mm. The regurgitation pressure half time is 343 ms. Pulmonic Valve There is no pulmonic stenosis. There is trace pulmonic regurgitation. Pericardium There is no pericardial effusion. General Findings The study was technically difficult (4). Study quality explanation: COPD. Technique(s) used in the evaluation: Multiplane, Color flow Doppler, Spectral Doppler and Epiaortic scan. Adequate windows include: parasternal, apical, subcostal and suprasternal. The predominant rhythm during the study was atrial fibrillation. Patient tolerated the procedure well. TDS, patient had severe back pain and subcostal view was shortened for this reason. IAS/IVS The interatrial septum is suboptimally visualized. us Sherwin Canada DO CV ECHO ORDERABLES Final Resu lt * (ABNORMAL) Basic metabolic panel (01/20/2025 10:31 AM EDT) SODIUM 140 133 - 146 mmol/L [facility] CHLORIDE 100 96 - 108 mmol/L [facility] POTASSIUM 4.4 3.3 - 5.1 mmol/L [facility] CO2 27 21 - 35 mmol/L [facility] BUN 35(H) 6 - 19 mg/dL [facility] CREATININE 1.40 0.5 - 1.5 mg/dL [facility] GLUCOSE 113(H) 70 - 99 mg/dL [facility] CALCIUM 10.0 8.4 - 10.3 mg/dL [facility] EGFR 54(L) >59 mL/min/1.7 3m2 [facility] Comment:Estimated glomerular filtration rate calculated using the CKD-EPI refit equation. ANION GAP 17 10 - 20 mmol/L [facility] Blood 01/20/2025 10:3 1 AM EDT 01/20/2025 10:38 AM EDT us Reji Leggett MD LAB BLOOD ORDERABLES Cipriano al Result [facility] [address] [place] [address] from Last 3 Months or Most Recently Relevant to Health Maintenance Insurance Care Teams Pool Attendant Relationship Specialty Start Date End Date Artie Lentz NP [address] [place] [address] PCP - General Nurse Practitioner 01/20/25 Additional Source Comments The information contained in this document represents components of the legal health record. It is not the complete legal health record.[facility]
--- OUTSIDE RECORDS SUMMARY | 2025-05-31 10:30 | XMS_ITS | Encounter Summary ---
Author Organization [facility] Address [address] [facility] [address] [place] [phone] Phone Care Team Providers Care Electrotyper Helper Name Role Phone Artie Lentz NP Primary Care Provide r Reason for Visit * Reason Onset Date Comments Atrial Fibrillation 03/29/2025 Encounter Details Date Type Department Care Team (Late st Contact Info) Description 03/29/2025 Telephone [facility] [address] [facility] 3rd Floor, [address] [place] [address] Sherwin Canada DO [address] [facility] [address] [place] [address] [email or web address] Atrial Fibrillation Social History Tobacco Use Types [...] Description 08/22/2025 7:45 AM EST Office Visit [facility] [address] [facility] 3rd Floor, [address] [place] [address] Sherwin Canada, [address] [facility] [address] [place] [address] [email or web address] documented as of this encounter Visit Diagnoses Not on filedocumented in this encounter Care Teams Electrotyper Helper Relationship Specialty Start Date End Date Artie Lentz NP [address] [place] [address] PCP - General Nurse Practitioner 01/20/25 documented as of this encounter Additional Source Comments The information contained in this document represents components of the legal health record. It is not the complete legal health record.[facility]
--- OUTSIDE RECORDS SUMMARY | 2025-05-31 10:30 | XMS_ITS | Encounter Summary ---
Author Organization [facility] Address [address] [facility] [address] [place] [address] Phone Care Team Providers Care Chips Screen Tender Name Role Phone Artie Lentz NP Primary Care Provide r Encounter Details Date Type Department Care Team (Late st Contact Info) Description 03/15/2025 Procedure Pass [facility] [address] [place] [address] Social History Tobacco Use Types Packs/Day Years [...] on file documented as of this encounter Plan of Treatment Upcoming Encounters Date Type Department Care Team (Late st Contact Info) Description 08/22/2025 7:45 AM EST Office Visit [facility] [address] [place] [address] [address] [facility], [address] [place] [address] Sherwin Canada DO [address] [place] [phone] documented as of this encounter Visit Diagnoses Not on filedocumented in this encounter Care Teams Chips Screen Tender Relationship Specialty Start Date End Date Artie Lentz NP [address] [place] [address] PCP - General Nurse Practitioner 01/20/25 documented as of this encounter Additional Source Comments The information contained in this document represents components of the legal health record. It is not the complete legal health record.[facility]
--- OUTSIDE RECORDS SUMMARY | 2025-05-31 10:30 | XMS_ITS | Clinical Summary ---
Author Organization [facility] Address [address] [place] [address] Care Team Providers Care Paving Stone Installer Name Role Phone Unavailable Primary Care [...] patient's age to complete this topic Insurance [facility] Regions 1,2,3 (VACCN) [facility] Regions 1,2,3 (VACCN)
== END 2025-05-31 10:19 | disposition home or self-care (01) ==
LOC: HO.HPS 09:46
PROVIDERS: PCP Nurse Practitioner Family; Referring Provider Internal Medicine Pulmonary Disease; Visit Provider Internal Medicine Pulmonary Disease
DX: J44.9 Chronic obstructive pulmonary disease, unspecified (principal); G47.34 Idiopathic sleep related nonobstructive alveolar hypoventilation; Z87.891 Personal history of nicotine dependence
CPT/HCPCS: 99214; G2211

== ENCOUNTER → 2025-05-31 09:46 | Outpatient (BNVA) | payer OTHER, SELFPAY | PROVIDERS: PCP Nurse Practitioner Family; Visit Provider Internal Medicine Pulmonary Disease | DX: J44.9 Chronic obstructive pulmonary disease, unspecified (principal); G47.34 Idiopathic sleep related nonobstructive alveolar hypoventilation; Z87.891 Personal history of nicotine dependence | CPT/HCPCS: 99212 ==

== ENCOUNTER 2025-06-09 10:53 | Inpatient (IN) | payer OTHER, SELFPAY ==
[2025-06-09] VITALS (13 sets, daily range): BP systolic 127–152; BP diastolic 74–97; PULSE 78–178; RESP 17–29; TEMP 36.6–37.1; O2SAT 73–94; BMI 27.0
--- NOTE | 2025-06-09 | ECG_ITS ---
Test Reason : TACHY Blood Pressure : */* mmHG Vent. Rate : 179 BPM Atrial Rate : 156 BPM P-R Int : 126 ms QRS Dur : 70 ms QT Int : 270 ms P-R-T Axes : 101 68 63 degrees QTcB Int : 466 ms Atrial tachycardia with occasional aberrantly conducted beats. Nonspecific ST abnormality Abnormal ECG When compared with ECG of 07-May-2025 21:01, Atrial tachycardia present Referred By: Jose Santos Electronically Signed By: Carlos Manuel Fox
--- NOTE | ~2025-06-09 | XR_ITS ---
CLINICAL HISTORY: Shortness of breaths 1 view chest x-ray. Comparison: CR/SR - XR CHEST 1 VIEW - 06/09/25 11:28 EDT Findings: The lungs are adequately expanded. No focal consolidation. No effusion or pneumothorax. Cardiac and mediastinal contours are within normal limits. No acute osseous abnormality Impression: No focal consolidation or edema. This document has been electronically signed by: Dennys Lockhart MD on 06/10/2025 05:59:54
--- NOTE | ~2025-06-09 | XR_ITS ---
EXAMINATION: XR CHEST CLINICAL INFORMATION: Shortness of breath, low O2 sats COMPARISON: May 07, 2025 TECHNIQUE: Frontal view of the chest was obtained. FINDINGS: Heart is not contours are unremarkable. Minimal streaky atelectasis is present in the lower third right lung zone. Lungs are clear otherwise. No pleural effusion is evident. XR/XR chest 1V IMPRESSION: No acute disease Electronically signed by: Ashwin Snyder MD 06/09/2025 11:39 AM EDT
--- NOTE | 2025-06-09 11:00 | ED_ITS ---
HPI - General Adult General Chief complaint: Dyspnea Stated complaint: diff breathing Time Seen by Provider: 06/09/25 11:00 History of Present Illness ED Provider: Tom PICKERING narrative: The patient is a 69-year-old male with a history of atrial fibrillation and congestive heart failure. He was recently hospitalized at this hospital from May 07 to May 16. At that time he was felt to have pneumonia as well as a COPD exacerbation and atrial fibrillation with a rapid ventricular response. At discharge she was placed on a taper of prednisone. He has been maintained on rivaroxaban, furosemide, theophylline, and metoprolol. Apparently he has been on diltiazem prior to his most recent hospitalization. At discharge his diltiazem was stopped and he was started on metoprolol tartrate 50 mg b.i.d. instead. The patient lives with a sister. The sister says the patient has had increasing shortness of breath over the last 3 days. She has been trying to convince him to come to the emergency room and he only agreed today. She also says that he has seemed somewhat confused. He has been moving furniture inappropriately and has been seeming paranoid. Related Data Home Medications ?Medication ?Instructions ?Recorded ?Confirmed atorvastatin 40 mg tablet 20 mg PO DAILY 10/18/2401/28 cholecalciferol (vitamin D3) 25 25 mcg PO DAILY 06/09/25 mcg (1,000 unit) tablet fluticasone 250 mcg-salmeterol 50 1 inh inhalation BID 10/18/24 06/09/25 mcg/dose blistr powdr for inhalation tiotropium bromide 2.5 2 puff inhalation DAILY 10/0606/09/25 mcg/actuation mist for inhalation albuterol sulfate 2.5 mg/3 mL 2.5 mg inhalation Q6H MD N breathing 05/08/25 06/09/25 (0.083 %) solution for nebulization albuterol sulfate 90 mcg/actuation 2 puff inhalation Q 4H PRN breathing 05/08/25 06/09/25 aerosol inhaler levothyroxine 88 mcg tablet 88 mcg PO DAILY@0600 05/0806/09/25 rivaroxaban 20 mg tablet (Xarelto) 20 mg PO DAILY@1700 05/08/25 06/09/25 Previous Rx's ?Medication ?Instructions ?Recorded furosemide 40 mg tablet 40 mg PO DAILY #30 tabs 12/04 theophylline 400 mg 400 mg PO DAILY #30 tabs 12/28 tablet,extended release 24 hr metoprolol tartrate 50 mg tablet 50 mg PO BID #60 tabs 05/16/25 Allergies Allergy/AdvReac Type Severity Reaction Status Date / Time hydrochlorothiazide AdvReac Severe Rash Verified 06/09/25 11:01 Review of Systems 2 Review of Systems: Yes all other systems are reviewed and are negative [facility] Past Medical History Medical History (Updated 06/09/25 @ 18:18 by Clemente Akbar MD) COPD (chronic obstructive pulmonary disease) Alcohol use disorder Tobacco use disorder Acute CHF Chronic obstructive pulmonary disease with (acute) exacerbation Alcohol use Pulmonary nodules Supplemental oxygen dependent Atrial fibrillation with RVR Hypothyroid Social History Social History Household Members: Family Housing: House Do you presently have visiting nurse or other home services: No Alcohol intake: current Comment: refusing HFR alarms Patient Tobacco Use Status: Former Tobacco user Tobacco use type: Cigarette Cigarette Packs Per Day: 0.5 Cigarettes Per Day: 10.0 Years Smoked: started at age 12, 2-3 PPD, quit 10/16/2024 Advance Directives: No Advance Directives Information Provided: Yes Do you have a plan to hurt others: No Plan service: No Physical Exam ED Vital Signs: Vital Signs - 24 hr 06/09/25 10:58 06/09/25 11:03 06/09/25 11:17 Temperature 98.7 F Pulse Rate 175 H 169 H 170 H Pulse Rate [Automated] Respiratory Rate 22 H 27 H 25 H Blood Pressure 143/76 H 152/91 H Pulse Oximetry 73 L 90 L 93 Oxygen Delivery Method Room Air Nasal Cannula Nasal Cannula Oxygen Flow Rate 4 2 06/09/25 11:23 06/09/25 11:34 06/09/25 11:35 Temperature Pulse Rate 133 H 145 H Pulse Rate [Automated] 178 H Respiratory Rate 27 H Blood Pressure 141/80 H 141/80 H Pulse Oximetry 93 Oxygen Delivery Method Nasal Cannula Oxygen Flow Rate 3 06/09/25 12:22 06/09/25 12:46 06/09/25 13:32 Temperature 97.8 F Pulse Rate 100 93 78 Pulse Rate [Automated] Respiratory Rate 29 H 20 17 Blood Pressure 135/74 138/97 H Pulse Oximetry 94 90 L Oxygen Delivery Method Nasal Cannula Nasal Cannula Oxygen Flow Rate 3 3 06/09/25 14:23 Temperature Pulse Rate 96 Pulse Rate [Automated] Respiratory Rate 25 H Blood Pressure 127/85 Pulse Oximetry 94 Oxygen Delivery Method Oxymask Oxygen Flow Rate 7 BMI result Body Mass Index 27.0 Const Other: The patient is a very chronically ill-appearing 69-year-old who initially seemed somewhat short of breath and quite weak. However he has a pleasant demeanor. HENMT Other: The face is symmetrical. ?Mucous membranes moist. Eyes Other: Pupils are round equal, conjunctivae are clear, extraocular movements intact General: appearance normal, both eyes and all related structures Neck Other: No obvious JVD Neck: Yes normal visual inspection, Yes full ROM and Yes no lymphadenopathy Resp Other: The patient had some rhonchorous wheezes bilaterally. No brenda increased work of breathing. Cardio Other: The patient was extremely tachycardic with a an irregular rate and rhythm GI Other: Abdomen is soft and nontender Skin Other: Skin was pale and dry Neuro Other: The patient was awake and fairly alert although he had difficulty with the correct year, he can tell me the correct month. Extrem Other: Minimal edema of the lower legs Medications Administered Discontinued Medications Generic Name Dose Route Start Last Admin Trade Name Freq PRN Reason Stop Dose Admin Albuterol/Ipratropium 3 ml 06/09/25 12:32 06/09/25 12:44 Albuterol/Iprat 2.5/0.5mg 3 Ml Ampul.Neb INHALE 06/09/25 12:33 3 ml ONCE ONE Administration Ceftriaxone Sodium 2 gm 06/09/25 11:58 06/09/25 12:24 Ceftriaxone Sodium 2 Gm Vial IVPUSH 06/09/25 11:59 2 gm ONCE ONE Administration Diltiazem HCl 20 mg 06/09/25 11:07 06/09/25 11:13 Diltiazem Hcl 50 Mg/10 Ml Vial IVPUSH 06/09/25 11:08 20 mg ONCE ONE Administration Methylprednisolone Sodium Succinate 80 mg 06/09/25 12:11 06/09/25 12:24 Methylprednisolone Sod Succ 125 Mg/2 Ml Vial IVPUSH 09/04/25 12:12 80 mg ONCE ONE Administration Metoprolol Tartrate 50 mg 06/09/25 11:25 06/09/25 11:34 Metoprolol Tartrate 50 Mg Tablet PO 06/09/25 11:26 50 mg ONCE ONE Administration Protocol Medical Decision Making Medical Decision Making [facility] Narrative: The patient is a 69-year-old with a history of congestive heart failure and atrial fibrillation on rivaroxaban who presents with a worsening shortness of breath and mild confusion. He was very tachycardic with a heart rate in the 170s. I thought his EKGs suggested atrial fibrillation with a rapid ventricular response. His lungs not as abnormal as I expected they might sound. There were some diffuse rhonchi but not a whole lot of brenda wheezes or brenda crackles. The patient was initially hypoxic on room air but responded to supplemental oxygen. He had arrived by private vehicle. My impression is that the patient was in atrial fibrillation with a rapid ventricular response and might also be having a COPD exacerbation. His chest x- ray was clear. This would make acute congestive heart failure less likely. Additionally the patient's hemoglobin is higher today than it was when he left the hospital which would suggest he is not fluid overloaded. Another possibility was pulmonary embolism but I think this is unlikely. He is on anticoagulation. Additionally, given that his blood pressure was very good despite his tachycardia it seems very unlikely that a pulmonary embolism would be causing such a degree of hypoxia without causing some degree of lower blood pressures. The patient is atrial fibrillation with a rapid ventricular response was addressed with 20 mg of IV diltiazem with improvement in his heart rate. He was also given his usual oral dose of metoprolol tartrate, 50 mg, since he had not taken that this morning. His heart rate improved and in fact he seemed to convert to a sinus rhythm. The patient has chest x-ray was read as negative but I thought that there might be an infiltrate in the right lower middle lobe and, given a white count elevation of 15,000 and a mild elevation of his lactate I felt it would be prudent to cover him with antibiotics although I doubt he has frankly septic. He was given IV ceftriaxone. The patient was admitted to the hospitalist service. Lab Data 06/09/25 11:12 06/09/25 11:12 Labs: Lab Results 06/09/25 06/09/25 06/09/25 Range/Units 11:12 11:23 13:27 WBC 15.9 H (4.8-10.8) X10*3/uL RBC 4.52 L (4.60-5.80) X10*6/uL Hgb 14.2 D (14.0-18.0) g/dl Hct 41.5 L (42.0-52.0) % MCV 91.8 (80.0-98.0) fL MCH 31.4 (27.0-33.0) pg MCHC 34.2 (31.0-36.0) g/dl RDW 13.7 (11.0-16.0) % Plt Count 358 D (160-400) X10*3/uL MPV 11.8 (9.4-12.4) fL Immature Gran % (Auto) 2.5 H (0.0-0.4) % Neut % (Auto) 77.0 H (45-73) % Lymph % (Auto) 12.5 L (20-40) % Sevier % (Auto) 7.0 (2-11) % Eos % (Auto) 0.5 (0-4) % Baso % (Auto) 0.5 (0-2) % Lymph # (Auto) 2.0 (1.2-4.9) X10*3/uL Sevier # (Auto) 1.1 (0.1-1.2) X10*3/uL Eos # (Auto) 0.1 (0.0-0.4) X10*3/uL Baso # (Auto) 0.1 (0.0-0.2) X10*3/uL Abs Immat Gran (auto) 0.40 H (0.00-0.03) X10*3/uL Absolute Neuts (auto) 12.2 H (2.0-8.3) x10*3/uL Absolute Nucleated RBC 0.020 H (0.0-0.012) X10*3/uL Nucleated RBC % (auto) 0.1 (0.0-0.2) /100WBC VBG pH 7.48 H (7.32-7.43) VBG pCO2 55 mmHg VBG pO2 83 mmHg VBG HCO3 41 H (22-26) mmol/L VBG O2 Saturation 95.0 % VBG Base Excess 15.3 mmol/L Sodium 139 (135-145) mmol/L Potassium 3.4 (3.3-5.1) mmol/L Chloride 87 L (96-108) mmol/L Carbon Dioxide 36 H (22-29) mmol/L Anion Gap 19 (12-20) BUN 48 H (9-16) mg/dL Creatinine 1.63 H (0.5-1.4) mg/dL Estim Creat Clear Calc 40.2 Estimated GFR 42 Random Glucose 121 H (60-115) mg/dL Lactic Acid 2.5 H* (0.5-2.0) mmol/L Lactic Acid F/U @ 2Hr 1.3 (0.5-2.0) mmol/L Calcium 10.3 H D (8.4-10.2) mg/dL Magnesium 1.7 (1.6-2.6) mg/dL Total Bilirubin 0.5 (0.0-1.0) mg/dL Direct Bilirubin 0.2 (0.0-0.5) mg/dL AST 120 H (5-37) U/L ALT 18 (0-40) U/L Alkaline Phosphatase 128 H (39-117) U/L Ammonia 32 (13-55) umol/L Troponin I High Sens 48.1 H D 45.1 H (<3.5-35.0) ng/L C-Reactive Protein 5.81 H (< or = 0.50) mg/dL B-Natriuretic Peptide 203 H (<100) pg/mL Total Protein 7.3 (6.5-8.0) g/dL Albumin 4.2 (3.5-5.0) g/dL Ethyl Alcohol < 10 mg/dL Critical Care Time Critical Care Time Critical Care Time: Yes Total Critical Care Time: 35 Attestation: The patient was critically ill with a high probability of imminent or life- threatening deterioration. ?I spent greater than 30 minutes of discontinuous time evaluating the patient, delivering critical care at the bedside, discussing evaluating data with consultants. ?Critical care time does not include time spent performing separately billable procedures or teaching. ?Time spent performing critical care with 35 minutes. Discharge Plan Discharge Clinical Impression: Atrial fibrillation with rapid ventricular response, Acute exacerbation of chronic obstructive pulmonary disease Patient Disposition: Admitted As Inpatient Interventions: Admission Worksheet (ED) Last Done: 06/09/25 16:02
--- NOTE | 2025-06-09 11:05 | ECG_ITS ---
Test Reason : REPEAT Blood Pressure : */* mmHG Vent. Rate : 102 BPM Atrial Rate : 113 BPM P-R Int : 140 ms QRS Dur : 74 ms QT Int : 372 ms P-R-T Axes : 84 60 54 degrees QTcB Int : 484 ms Sinus tachycardia with Premature atrial complexes with Aberrant conduction Otherwise normal ECG When compared with ECG of 09-Jun-2025 11:06, Previous ECG has undetermined rhythm, needs review Referred By: Jose Santos Electronically Signed By: Carlos Manuel Fox
--- NOTE | 2025-06-09 11:17 | PC.NURSE ---
patient presents to the ED with his sister whom he lives with, noted to be tripoding on ED stretcher during triage. patient satting 76% on room air, audible breathing noises, patient appears to be in distress. patient placed onn 3l NC came up to sat of 91%. patient states he was on home o2 when he was weaned off during his last hospital admission. IV access obtained in the left FA #[id number], labs drawn and obtained. patient is alert and oriented x3. patient MM noted to be dry, skin is dry but warm. patient noted to be in afib rate 150s-170s. ED provider at bedside, patient and sister state that patient has been increasingly sob x2 days, no noted fevers. patients sister states that he has been increasingly confused and moving his recliner around the room. patient states he does not feel confused. patient has baseline cough due to COPD. secondary IV started in right AC #20 by Kalyn CATALAN, second set of cultures obtained. patient medicated per DEC with IVP dilt, patient still in afib at this time but heart rate is 106-120s. patient appears to be more comfortable
[2025-06-09 11:21] LABS: MANUAL DIFF FLAG NO
[2025-06-09 11:29] LABS: VBG HCO3 41 mmol/L (22-26); VBG O2 % Saturation 95.0 %
[2025-06-09 11:32] LABS: Venous Blood Gas Refer to POC result
[2025-06-09 11:35] LABS: Hematocrit 41.5 % (42.0-52.0); Hemoglobin 14.2 g/dl (14.0-18.0); Imm Gran Abs Auto 0.40 X10*3/uL (0.00-0.03); Imm Gran Pct Auto 2.5 % (0.0-0.4); Lymphocytes Absolute Auto 2.0 X10*3/uL (1.2-4.9); Mean Corpuscular HGB Conc 34.2 g/dl (31.0-36.0); Mean Corpuscular Hemoglobin 31.4 pg (27.0-33.0); Mean Corpuscular Volume 91.8 fL (80.0-98.0); NRBC Abs Auto 0.020 X10*3/uL (0.0-0.012); NRBC Pct Auto 0.1 /100WBC (0.0-0.2); Platelet Count 358 X10*3/uL (160-400); Red Blood Count 4.52 X10*6/uL (4.60-5.80); White Blood Count 15.9 X10*3/uL (4.8-10.8)
[2025-06-09 11:52] LABS: Troponin-I High Sensitivity 48.1 ng/L (<3.5-35.0)
[2025-06-09 11:56] LABS: Alanine Aminotransferase 18 U/L (0-40); Albumin Level 4.2 g/dL (3.5-5.0); Alkaline Phosphatase 128 U/L (39-117); Anion Gap 19 (12-20); Aspartate Amino Transferase 120 U/L (5-37); Blood Urea Nitrogen 48 mg/dL (9-16); Calcium 10.3 mg/dL (8.4-10.2); Carbon Dioxide 36 mmol/L (22-29); Chloride 87 mmol/L (96-108); Creatinine Clr Calc Pharmacy 40.2; Estimated Glomerular Filt Rate 42; Magnesium 1.7 mg/dL (1.6-2.6); Potassium 3.4 mmol/L (3.3-5.1); Sodium 139 mmol/L (135-145); Total Protein 7.3 g/dL (6.5-8.0)
[2025-06-09] MEDS: Albuterol/Iprat 2.5/0.5MG 3 ML AMPUL.NEB INHALE (12:44)
--- OUTSIDE RECORDS SUMMARY | 2025-06-09 13:05 | XMS_ITS | Clinical Summary ---
Author Organization [facility] Address [address] [place] [address] Care Team Providers Care Embedded Nurse Name Role Phone Unavailable Primary Care Provider [...] patient's age to complete this topic Insurance [facility] [employer] 1,2,3 (VACCN) [facility] [employer] 1,2,3 (VACCN)
--- OUTSIDE RECORDS SUMMARY | 2025-06-09 13:05 | XMS_ITS | Encounter Summary ---
Author Organization [facility] Address [address] [facility] [address] [place] [id number] Phone Care Team Providers Care Signal And Communications Maintainer Name Role Phone Artie Lentz NP Primary Care Provide r Encounter Details Date Type Department Care Team (Late st Contact Info) Description 03/15/2025 Procedure Pass [facility] [address] [place] [address] Social History Tobacco Use Types Packs/Day Years [...] Description 08/22/2025 7:45 AM EST Office Visit [facility] [address] [place] [address] [address]rd [facility], [address] [place] [address] Sherwin Canada DO [address] [place] [phone] documented as of this encounter Visit Diagnoses Not on filedocumented in this encounter Care Teams Signal And Communications Maintainer Relationship Specialty Start Date End Date Artie Lentz NP [address] [place] [address] PCP - General Nurse Practitioner 01/20/25 documented as of this encounter Additional Source Comments The information contained in this document represents components of the legal health record. It is not the complete legal health record.[facility]
--- OUTSIDE RECORDS SUMMARY | 2025-06-09 13:05 | XMS_ITS | Encounter Summary ---
Author Organization [facility] Address [address] [facility] [address] [place] [phone] Phone Care Team Providers Care Driver Wheelchair Name Role Phone Artie Lentz NP Primary Care Provide r Reason for Visit * Reason Onset Date Comments Atrial Fibrillation 03/29/2025 Encounter Details Date Type Department Care Team (Late st Contact Info) Description 03/29/2025 Telephone [facility] [address] [facility] 3rd Floor, [address] [place] [address] Sherwin Canada DO [address] [facility] [address] [place] [id number] [email or web address] Atrial Fibrillation Social History Tobacco Use Types [...] Description 08/22/2025 7:45 AM EST Office Visit [facility] [address] [facility] 3rd Floor, [address] [place] [address] Sherwin Canada, [address] [facility] [address] [place] [address] [email or web address] documented as of this encounter Visit Diagnoses Not on filedocumented in this encounter Care Teams Driver Wheelchair Relationship Specialty Start Date End Date Artie Lentz NP [address] [place] [address] PCP - General Nurse Practitioner 01/20/25 documented as of this encounter Additional Source Comments The information contained in this document represents components of the legal health record. It is not the complete legal health record.[facility]
--- OUTSIDE RECORDS SUMMARY | 2025-06-09 13:06 | XMS_ITS | Clinical Summary ---
Author Organization [facility] Address [address] [place] [address] [place] [phone] Phone Care Team Providers Care Pharmacy Analyst Name Role Phone Artie Lentz NP Primary [...] Department Care Team Description 04/20/2025 Orders Only [facility] [address] Floor, [address] [place] [address] Sherwin Canada, 04/13/2025 7:02 AM EDT - 04/13/2025 11:59 PM EDT Hospital Encounter [facility] [place] [address] Sherwin Canada, DO Discharge Disposition: Home or Self Care 03/29/2025 Telephone [facility] [address] Floor, [address] [place] [address] Shewrin Canada, DO Atrial Fibrillation 03/15/2025 7:45 AM EDT Office Visit [facility] [address], [address] [place] [address] Sherwin Canada, DO Benign essential hypertension (Primary Dx); Paroxysmal atrial fibrillation; Current smoker; Simple chronic bronchitis; Pure hypercholesterolemia 03/15/2025 Procedure Pass [facility] [address] [place] [address] from Last 3 Months Social History Tobacco [...] Description 08/22/2025 7:45 AM EST Office Visit [facility] [address] [place] [address] 3rd Floor, [address] [place] [address] Sherwin Canada, [address] [facility] [address] [place] [phone] Health Maintenance Due Date Last Done Comments [...] EDT) SODIUM 140 133 - 146 mmol/L [facility] CHLORIDE 100 96 - 108 mmol/L [facility] POTASSIUM 4.4 3.3 - 5.1 mmol/L [facility] CO2 27 21 - 35 mmol/L [facility] BUN 35(H) 6 - 19 mg/dL [facility] CREATININE 1.40 0.5 - 1.5 mg/dL [facility] GLUCOSE 113(H) 70 - 99 mg/dL [facility] CALCIUM 10.0 8.4 - 10.3 mg/dL [facility] EGFR 54(L) >59 mL/min/1.7 3m2 [facility] Comment:Estimated glomerular filtration rate calculated using the CKD-EPI refit equation. ANION GAP 17 10 - 20 mmol/L [facility] Blood 01/20/2025 10:3 1 AM EDT 01/20/2025 10:38 AM EDT us Reji Leggett MD LAB BLOOD ORDERABLES Cipriano al Result [facility] [address] [place] [address] from Last 3 Months or Most Recently Relevant to Health Maintenance Insurance Care Teams Pharmacy Analyst Relationship Specialty Start Date End Date Artie Lentz NP [address] [place] [address] PCP - General Nurse Practitioner 01/20/25 Additional Source Comments The information contained in this document represents components of the legal health record. It is not the complete legal health record.[facility]
[2025-06-09 13:19] LABS: Reflex Lactate? Lactic Acid Added
[2025-06-09 13:29] LABS: B Type Natriuretic Peptide 203 pg/mL (<100)
[2025-06-09 13:48] LABS: Ammonia 32 umol/L (13-55)
[2025-06-09 13:56] LABS: ~Lactic Acid-LAB USE ONLY 1.3 mmol/L (0.5-2.0)
[2025-06-09 14:05] LABS: Troponin-I High Sensitivity 45.1 ng/L (<3.5-35.0)
--- NOTE | 2025-06-09 14:21 | PC.NURSE ---
patient was laid flat to get into hospital attire and reposition, patient desat down to 85% on 3lNC. patient unable to recover on 3lNC, placed on oxymask, titrated to 7L to achieve sat above 88%. patient slightly tachypneic at 26rr, skin PWD. resting with eyes shut
--- NOTE | 2025-06-09 15:45 | PC.NURSE ---
Patient removed Oxymask to drink water Patient forgot to place mask back on face Patient O2 55% RA Reapplied oxymask 15L patient returned to 95% Titrated down to 5L oxymask patient O2 98% Titrated down to 2L Oxymask Patient O2 96% Cough noted, encouraged patient to spit out sputum
--- NOTE | 2025-06-09 16:26 | PC.NURSE ---
Titrated patient to NC 2L patient O2 90% When patient would fall asleep, patient would mouth breathe and O2 would drop to 85% Increased O2 NC 3L patient O2 88% Switched patient to oxymask 3L patient O2 92%
--- NOTE | 2025-06-09 18:10 | PM.IMHP ---
History of Present Illness Date of Service: 06/09/25 Attending physician on admission: Clemente Akbar Chief Complaint: Shortness of breaths and fatigue History of Present Illness Dickson Em, a 69-year-old male with a history of atrial fibrillation, congestive heart failure, COPD, alcohol abuse, and hypothyroidism, presents with dyspnea and fatigue. The patient reports feeling tired and experiencing a lot of coughing, which worsens when lying flat. He denies chest pain, chest pressure, or fast heartbeats. The patient mentions bringing up a lot of phlegm but denies recent fevers or chills. Mr. Em's sister notes increased confusion. The patient has been experiencing progressive worsening of dyspnea, palpitations, dizziness, fatigue, orthopnea, and paroxysmal nocturnal dyspnea. He has a history of COPD requiring nocturnal oxygen. The patient was recently admitted for acute CHF exacerbation and acute on chronic exacerbation of COPD. Regarding medication adherence, Mr. Em confirms taking Lasix 20 mg once daily at home. He is noted to be an active tobacco user. The patient is described as a poor historian, which may impact the accuracy and completeness of the reported symptoms and history. Review of Systems Review of Systems: General: Positive for fatigue. Cardiovascular: Negative for chest pain, chest pressure, palpitations. Respiratory: Positive for cough, orthopnea, paroxysmal nocturnal dyspnea. Negative for fever, chills. Neurological: Positive for dizziness. Yes all other systems are reviewed and are negative [facility] Medical History (Updated 06/09/25 @ 18:18 by Clemente Akbar MD) COPD (chronic obstructive pulmonary disease) Alcohol use disorder Tobacco use disorder Acute CHF Chronic obstructive pulmonary disease with (acute) exacerbation Alcohol use Pulmonary nodules Supplemental oxygen dependent Atrial fibrillation with RVR Hypothyroid Social History Household Members: Family Housing: House Do you presently have visiting nurse or other home services: No Alcohol intake: current Comment: refusing HFR alarms Patient Tobacco Use Status: Former Tobacco user Tobacco use type: Cigarette Cigarette Packs Per Day: 0.5 Cigarettes Per Day: 10.0 Years Smoked: started at age 12, 2-3 PPD, quit 10/16/2024 Advance Directives: No Advance Directives Information Provided: Yes Do you have a plan to hurt others: No Plan service: No Meds Allergies Allergy/AdvReac Type Severity Reaction Status Date / Time hydrochlorothiazide AdvReac Severe Rash Verified 06/09/25 11:01 Active Medications: Current Medications Acetaminophen (Acetaminophen 325 Mg Tablet) 650 mg PO Q6H PRN PRN Reason: Pain, Mild 1-3,fever,headache Atorvastatin Calcium (Atorvastatin Calcium 40 Mg Tablet) 40 mg PO DAILY [facility] Calcium Carbonate (Calcium Carbonate 750 Mg Tab.Chew) 750 mg PO Q4H PRN PRN Reason: Heartburn Fluticasone/Vilanterol (Fluticasone/Vilanterol 200/25 Blst.W.Dev) 1 puff INHALE DAILY [facility] Furosemide (Furosemide 40 Mg/4 Ml Vial) 40 mg IVPUSH BID [facility]ARYA; Protocol Levothyroxine Sodium (Levothyroxine Sodium 75 Mcg Tablet) 75 mcg PO DAILY [facility] Magnesium Hydroxide (Milk Of Magnesia 30 Ml Oral.Susp) 30 ml PO DAILY PRN PRN Reason: Constipation Melatonin (Melatonin 3 Mg Tablet) 6 mg PO BEDTIME PRN PRN Reason: Insomnia Rivaroxaban (Rivaroxaban 20 Mg Tablet) 20 mg PO DAILY [facility] Sodium Chloride (0.9 % Sodium Chloride Flush 3 Ml Syringe) 3 ml IVFLUSH QSHIFT [facility] Tiotropium [place] (Tiotropium [place] 2.5 Mcg 1 Puff/2.5 Mcg Mist.Inhal) 2 puff INHALE DAILY [facility] Home Medications ?Medication ?Instructions ?Recorded ?Confirmed ?Last Taken ?Type atorvastatin 40 mg tablet 20 mg PO DAILY 10/18/24 05/08/25 05/06/25 History cholecalciferol (vitamin D3) 25 25 mcg PO DAILY 10/18/24 05/08/25 05/06/25 History mcg (1,000 unit) tablet fluticasone 250 mcg-salmeterol 50 1 inh inhalation BID 10/18/24 05/08/25 05/06/25 History mcg/dose blistr powdr for inhalation tiotropium bromide 2.5 2 puff inhalation DAILY 10/18/24 05/08/25 05/06/25 History mcg/actuation mist for inhalation albuterol sulfate 2.5 mg/3 mL 2.5 mg inhalation Q6H PRN breathing 05/08/25 05/08/25 Unknown History (0.083 %) solution for nebulization albuterol sulfate 90 mcg/actuation 2 puff inhalation Q4H PRN breathing 05/08/25 05/08/25 Unknown History aerosol inhaler levothyroxine 88 mcg tablet 88 mcg PO DAILY@0600 05/08/25 05/08/25 05/06/25 History rivaroxaban 20 mg tablet (Xarelto) 20 mg PO DAILY@1700 05/08/25 05/08/25 05/06/25 History Physical Exam Vital Signs and Narrative: Vital Signs: Last Vital Signs Temp 97.8 F 06/09/25 12:22 Pulse 96 06/09/25 14:23 Resp 25 H 06/09/25 14:23 BP 127/85 06/09/25 14:23 Pulse Ox 94 06/09/25 14:23 O2 Del Method Oxymask 06/09/25 14:23 O2 Flow Rate 7 06/09/25 14:23 BMI result Body Mass Index 27.0 General: A&O x3, oriented to time place person and situation, comfortable, no pain Cardiac: S1, S2 auscultated with no S3/4, no MRG. Well perfused. Irregularly irregular. Respiratory: Tachypneic, no distress, shallow breathing. Bibasilar crepitations auscultated on examination, with reduced breath sounds at the bases bilaterally. End expiratory wheezing auscultated in the upper zones. On 4 L rebreather. No peripheral or central cyanosis GI/ : No abdominal pain on palpation, no masses or distentions. MSK: Normal ambulation without pain at bony prominences or musculature Neurological: Normal neurological examination on overview, without obvious CN II-XII abnormalities. Results Labs 06/09/25 11:12 06/09/25 11:12 Labs: Laboratory Results - last 24 hr 06/09/25 06/09/25 06/09/25 11:12 11:23 13:27 MCV 91.8 MCH 31.4 MCHC 34.2 RDW 13.7 Plt Count 358 D MPV 11.8 Immature Gran % (Auto) 2.5 H Neut % (Auto) 77.0 H Lymph % (Auto) 12.5 L Boyle % (Auto) 7.0 Eos % (Auto) 0.5 Baso % (Auto) 0.5 Lymph # (Auto) 2.0 Boyle # (Auto) 1.1 Eos # (Auto) 0.1 Baso # (Auto) 0.1 Abs Immat Gran (auto) 0.40 H Absolute Neuts (auto) 12.2 H Absolute Nucleated RBC 0.020 H Nucleated RBC % (auto) 0.1 VBG pH 7.48 H VBG pCO2 55 VBG pO2 83 VBG HCO3 41 H VBG O2 Saturation 95.0 VBG Base Excess 15.3 Anion Gap 19 Estim Creat Clear Calc 40.2 Estimated GFR 42 Random Glucose 121 H Lactic Acid 2.5 H* Lactic Acid F/U @ 2Hr 1.3 Calcium 10.3 H D Magnesium 1.7 Total Bilirubin 0.5 Direct Bilirubin 0.2 AST 120 H ALT 18 Alkaline Phosphatase 128 H Ammonia 32 C-Reactive Protein 5.81 H B-Natriuretic Peptide 203 H Total Protein 7.3 Albumin 4.2 Ethyl Alcohol < 10 Imaging Radiologist's Impressions: Impressions Chest X-Ray 06/09/25 10:28 IMPRESSION: No acute disease Electronically signed by: Ahswin Snyder MD 06/09/2025 11:39 AM EDT RP Assessment and Plan (1) Alcohol use: Status: Acute (2) Atrial fibrillation with RVR: Status: Acute (3) Aortic root dilation: Status: Acute (4) Hypothyroid: Qualifiers: 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(s): E06.3 - Autoimmune thyroiditis Status: Acute (5) COPD (chronic obstructive pulmonary disease): Qualifiers: COPD type: unspecified COPD Qualified Code(s): J44.9 - Chronic obstructive pulmonary disease, unspecified Status: Acute (6) Acute and chronic respiratory failure with hypoxia: Status: Acute (7) Acute exacerbation of chronic obstructive pulmonary disease: Status: Acute (8) Acute exacerbation of CHF (congestive heart failure): Qualifiers: Heart failure type: diastolic Qualified Code(s): I50.33 - Acute on chronic diastolic (congestive) heart failure Status: Acute (9) Nocturnal hypoxemia: Status: Acute Plan Dickson Em, 69-year-old male with history of atrial fibrillation, congestive heart failure, COPD, ETOH abuse, and hypothyroidism, presenting with dyspnea, fatigue, and confusion, admitted with acute multifactorial hypoxic respiratory failure 2/2 acute infective COPD exacerbation and superimposed acute on chronic CHFpEF exacerbation. Multifactorial Acute Hypoxic Respiratory Failure Assessment: Patient presents with worsening dyspnea, orthopnea, and PND. Chest x-ray suggests possible pulmonary edema. Hypoxia noted with O2 saturation of 92% on 2L, improved to 98% on 6L. Acute on chronic exacerbation of COPD and heart failure likely contributing to respiratory failure. Active tobacco use and history of COPD on nocturnal oxygen further complicate the clinical picture. Likely infective element superimposed. Plan: - Continue IV ceftriaxone - Add doxycycline 100 mg BID PO - Add prednisone 60 mg OD PO - Increase oxygen to 6L via nasal cannula - Administer Lasix (furosemide) 40 mg IV BID - Monitor intake and output - Obtain daily weights - Continue albuterol and ipratropium nebulizer treatments - Restart tiotropium Acute on Chronic Heart Failure Exacerbation Assessment: Patient reports orthopnea and PND, consistent with heart failure exacerbation. Chest x-ray suggests possible pulmonary edema. Last echocardiogram on May 09 showed LVEF 68%, no wall motion abnormalities, and moderate dilation of the ascending aorta. Patient's baseline furosemide dose is 40 mg oral once daily. Plan: - Administer Lasix (furosemide) 40 mg IV BID - Monitor intake and output - Obtain daily weights - Cardiac telemetry Atrial Fibrillation with Rapid Ventricular Response (RVR) on Rivaroxaban Assessment: Patient presented with palpitations and tachycardia. Initial pulse rate in ER was 175 bpm. Received diltiazem 20 mg IV with improvement in heart rate from 170 to 90-100 bpm, but remained in atrial fibrillation. Also received metoprolol tartrate 50 mg. Plan: - Metoprolol 25mg BID PO - PRN IV meoprolol 5mg for RVR - PRN IV diltiazem 5mg for RVR - Restart Rivaroxaban for anticoagulation COPD Exacerbation Assessment: Patient reports increased coughing with production of phlegm, worse when lying flat. History of COPD on nocturnal oxygen. Active tobacco use noted. Plan: - Continue IV ceftriaxone - Add doxycycline 100 mg BID PO - Continue prednisone 60 mg OD PO - Continue albuterol and ipratropium nebulizer treatments - Restart tiotropium EtOH Abuse Plan; - CIWA score - folic acid - thiamine CHRONIC MEDICAL ISSUES - HLD: Atorvastatin 40 mg OD p.o. - Vitamin-D deficiency: Cholecalciferol 25 mg resume outpatient - Hypothyroidism: Levothyroxine 75 mcg OD p.o. QUALITY METRICS - VTE: Rivaroxaban - CODE STATUS: Full code - DIET: Cardiac Quality Stroke Does the patient have a stroke diagnosis?: No VTE Prior VTE?: No VTE Risk Level:: Medical - moderate - high VTE Device Contraindication: Treatment Not Indicated VTE Drug Contraindication: N/A - Med Ordered
--- NOTE | 2025-06-09 18:35 | PHA.MEDREC ---
Pharmacy Consult ? Medication Reconciliation Pharmacy has completed the medication reconciliation. Pt was sleeping, his had a list that was faxed to pharmacy from a doctor's in March. Will use our discharge med list from 05/16/25 and reach out to [facility] to confirm [facility] changes. Mainly it looks like we switched him from Eliquis to Xarelto when he was here last month.
--- NOTE | 2025-06-09 19:41 | PC.NURSE ---
patient very difficult to rouse, opens eyes and grunts but doesn not stay awake, unable to give PO meds. hospitalist notified
[2025-06-09] MEDS: Furosemide 40 MG/4 ML VIAL IVPUSH (20:21)
[2025-06-09 20:47] LABS: VBG HCO3 42 mmol/L (22-26); VBG O2 % Saturation 88.0 %
[2025-06-09 20:48] LABS: Venous Blood Gas Refer to POC result
[2025-06-09 21:21] LABS: Thyroid Stimulating Hormone 0.51 uIU/mL (0.32-4.0)
[2025-06-10] VITALS (25 sets, daily range): BP systolic 100–158; BP diastolic 53–93; PULSE 82–130; RESP 14–32; TEMP 36–36.8; O2SAT 88–100; BMI 28.3
[2025-06-10] MEDS: 0.9 % Sodium Chloride Flush 3 ML SYRINGE IVFLUSH ×3 (00:39→15:33)
[2025-06-10 00:48] LABS: Appearance Urine Clear; Glucose Urine UA Negative (Negative); PH 5.0 (5.0-9.0); Specific Gravity - Urine 1.015 (1.005-1.025)
[2025-06-10 00:58] LABS: Cannabinoid Screen Urine Not Detected (Not Detect)
[2025-06-10] MEDS: Albuterol/Iprat 2.5/0.5MG 3 ML AMPUL.NEB INHALE ×4 (03:11→19:34)
[2025-06-10] MEDS: Furosemide 100 MG/10 ML VIAL 80 MG IVPUSH (03:13)
[2025-06-10 03:40] LABS: ABG HCO3 43 mmol/L (22-26); ABG O2 % Saturation 90.0 %
--- NOTE | 2025-06-10 04:22 | PM.EVENT ---
Event Note Date of Service: 06/10/25 Event Note: 2:58 AM - Contacted by RN and RT to notify Mr. Em is becoming very tachypnea and tripoding. Vital signs temp 96.8, HR 104 bpm, RR 18, BP 188/93 and O2 sats 95 % on 5 L OxyMask. Patient was evaluated. C/O shortness on breath. Noted to be tachypneic, tripoding and mentally artery. Cardiopulmonary exam remarkable for tachypnea, fine crackles at the bases and diminished chest expansion and no wheezing. CXR stat showed no acute changes. ABG stat showed pH 7.20, pCO2 110, PO2 77, HC03 43 and oxygen saturation of 90%. Patient received treatment with Lasix 80 mg IV and DuoNeb 3 mL. He also received dilaudid 0.5 mg IV to relief air hunger. He was placed on BiPAP and transferred to the ICU for further management. Time Spent With Patient Time: Total time managing care of this patient today ____ minutes.
[2025-06-10 04:27] LABS: ABG Refer to POC result
--- NOTE | 2025-06-10 04:33 | PC.NURSE ---
Pt arrived to unit from the ED at approximately 0245. Upon initial assessment pt was trippoding, could only state a few words, and was very SOB. Pt was on 4L oxymask upon arrival. This RN called RT d/t pt increased WOB and crackles noted at the bases.This RN reported to provider the symptoms this pt was experiencing. RT provided updraft for this pt and 80 mg of Lasix was provided as well as Dilaudid 0.5 (see MAR). Provider ordered chest kang and ABG. Pt was very restless continued to try and pull of his tele pack and oxymask. Provider ordered to place pt on BIPAP d/t CO2 retention and pt was to be transferred to ICU. Report called to [facility].Pt was transferred to ICU at 0425. Pt transferred without issue.
--- NOTE | 2025-06-10 04:36 | P.CONCC_ITS ---
History of Present Illness Data of Consult Service Date: 06/10/25 Requesting physician: Mirella Chávez Primary Care Provider: Artie Lentz NP HPI Reason for consult: Hypercapnia ?The patient is a 69-year-old male with a history of atrial fibrillation, congestive heart failure, COPD, alcohol abuse, and hypothyroidism,? who presented ? to the emergency department on 06/09/2025? with dyspnea and fatigue.? Admitted to Hospital Medicine with acute hypoxic respiratory failure due to acute infective COPD exacerbation and superimposed acute? Congestive heart failure exacerbation,? treated with? Lasix 40 mg IV b.i.d.,? prednisone,? IV ceftriaxone and doxycycline. Tonight? on arrival to the medical floor, patient noted to be in acute respiratory? distress,? with significant tachypnea and lethargy. Vital signs temp 96.8, HR 104 bpm, RR 18, BP 188/93 and O2 sats 95 % on 5 L OxyMask. ? Chest x-ray with pulmonary congestion. ABG showing hypercapnia 7.20/110/77/43 .? patient is placed on BiPAP? and given additional 80 mg of IV Lasix.? ?Patient will be transferred to ICU for management of acute hypercapnic respiratory failure requiring BiPAP support Review of Systems 2 Review of Systems: Yes Unobtainable due to mental condition PMFSH Past Medical History Medical History (Updated 06/10/25 @ 05:05 by Eliu Orellana NP) COPD (chronic obstructive pulmonary disease) Alcohol use disorder Tobacco use disorder Acute CHF Chronic obstructive pulmonary disease with (acute) exacerbation Alcohol use Pulmonary nodules Supplemental oxygen dependent Atrial fibrillation with RVR Hypothyroid Social History Social History Household Members: Family Housing: House Do you presently have visiting nurse or other home services: Yes Alcohol intake: current Comment: refusing HFR alarms Patient Tobacco Use Status: Former Tobacco user Tobacco use type: Cigarette Cigarette Packs Per Day: 0.5 Cigarettes Per Day: 10.0 Years Smoked: started at age 12, 2-3 PPD, quit 10/16/2024 service: No Meds Allergies Allergy/AdvReac Type Severity Reaction Status Date / Time hydrochlorothiazide AdvReac Severe Rash Verified 06/09/25 11:01 Active Medications: Current Medications Acetaminophen (Acetaminophen 325 Mg Tablet) 650 mg PO Q6H PRN PRN Reason: Pain, Mild 1-3,fever,headache Albuterol Sulfate (Albuterol Sulfate (0.083%) 2.5 Mg/3 Ml Vial.Neb) 2.5 mg INHALE Q2H PRN PRN Reason: Shortness of Breath/Wheezing Albuterol/Ipratropium (Albuterol/Iprat 2.5/0.5mg 3 Ml Ampul.Neb) 3 ml INHALE RQ4H WHILE AWAKE [facility] Atorvastatin Calcium (Atorvastatin Calcium 40 Mg Tablet) 40 mg PO DAILY [facility] Calcium Carbonate (Calcium Carbonate 750 Mg Tab.Chew) 750 mg PO Q4H PRN PRN Reason: Heartburn Fluticasone/Vilanterol (Fluticasone/Vilanterol 200/25 Blst.W.Dev) 1 puff INHALE DAILY [facility] Folic Acid (Folic Acid 1 Mg Tablet) 1 mg PO DAILY [facility] Last Admin: 06/09/25 19:40 Dose: Not Given Furosemide (Furosemide 40 Mg/4 Ml Vial) 40 mg IVPUSH BID [facility]; Protocol Last Admin: 06/09/25 20:21 Dose: 40 mg Doxycycline Hyclate 100 mg/ (Sodium Chloride) 250 mls @ 166.67 mls/hr IV Q12H [facility] Levothyroxine Sodium (Levothyroxine Sodium 75 Mcg Tablet) 75 mcg PO DAILY [facility] Magnesium Hydroxide (Milk Of Magnesia 30 Ml Oral.Susp) 30 ml PO DAILY PRN PRN Reason: Constipation Melatonin (Melatonin 3 Mg Tablet) 6 mg PO BEDTIME PRN PRN Reason: Insomnia Methylprednisolone Sodium Succinate (Methylprednisolone Sod Succ 40 Mg/Ml Vial) 40 mg IVPUSH Q12H [facility] Prednisone (Prednisone 20 Mg Tablet) 60 mg PO DAILY [facility] Last Admin: 06/09/25 19:40 Dose: Not Given Rivaroxaban (Rivaroxaban 20 Mg Tablet) 20 mg PO DAILY [facility] Sodium Chloride (0.9 % Sodium Chloride Flush 3 Ml Syringe) 3 ml IVFLUSH QSHIFT [facility] Last Admin: 06/10/25 00:39 Dose: 3 ml Thiamine HCl (Thiamine Hcl 100 Mg Tablet) 100 mg PO DAILY [facility] Last Admin: 06/09/25 19:41 Dose: Not Given Tiotropium [place] (Tiotropium [place] 2.5 Mcg 1 Puff/2.5 Mcg Mist.Inhal) 2 puff INHALE DAILY [facility] Home Medications ?Medication ?Instructions ?Recorded ?Confirmed ?Last Taken ?Type atorvastatin 40 mg tablet 20 mg PO DAILY 10/18/2401/2806/09/25 09:00 History cholecalciferol (vitamin D3) 25 25 mcg PO DAILY 06/09/25 06/09/25 09:00 History mcg (1,000 unit) tablet fluticasone 250 mcg-salmeterol 50 1 inh inhalation BID 10/18/24 06/09/25 06/09/25 09:00 History mcg/dose blistr powdr for inhalation tiotropium bromide 2.5 2 puff inhalation DAILY 10/0606/09/25 06/09/25 09:00 History mcg/actuation mist for inhalation albuterol sulfate 2.5 mg/3 mL 2.5 mg inhalation Q6H MT N breathing 05/08/25 06/09/25 06/09/25 09:00 History (0.083 %) solution for nebulization albuterol sulfate 90 mcg/actuation 2 puff inhalation Q 4H PRN breathing 05/08/25 06/09/25 06/09/25 09:00 History aerosol inhaler levothyroxine 88 mcg tablet 88 mcg PO DAILY@0600 05/0806/09/25 06/09/25 09:00 History rivaroxaban 20 mg tablet (Xarelto) 20 mg PO DAILY@1700 05/08/25 06/09/25 06/09/25 09:00 History Physical Exam 2 Exam: Exam: ?General:? Lethargic, able to open eyes to verbal commands, and following simple commands ?HEENT:? Head is normocephalic, atraumatic, pupils equal round reactive to light accommodation bilaterally.? Extraocular movements appear intact.? Buccal mucosa is dry, Neck is supple ?Cardiac:? Sinus, Clear S1-S2, no murmurs rubs or gallops. ?Pulmonary:? Coarse crackles at bases. No wheezing. ?Abdomen:? ?Abdomen soft, non-tender, non-distended. Normal bowel sounds. No pulsatile mass. No hepatosplenomegaly. ?Musculoskeletal:? Moving all 4 extremities upon request a major joints, there is no crepitus or tenderness.? The strength is 5/5 bilaterally and throughout all 4 extremities.? Gait not assessed at this point. ?Neurologic:? cranial nerves 2-12 are grossly intact.? No focal deficits noted.Motor strength as above.?? ?Skin:? Bilateral lower extremity trace edema Vascular:? 2+ pulses upper and lower extremities distally.? Vital Signs: Vital Signs: Last Vital Signs Temp 96.8 F 06/10/25 02:53 Pulse 104 H 06/10/25 02:53 Resp 14 06/10/25 03:55 BP 158/93 H 06/10/25 02:53 Pulse Ox 100 06/10/25 02:53 O2 Del Method Oxymask 06/10/25 02:53 O2 Flow Rate 9 06/10/25 02:53 BMI result Body Mass Index 27.0 Results Labs 06/10/25 04:57 06/10/25 04:57 Labs: Short CBC 06/09/25 Range/Units 11:12 WBC 15.9 H (4.8-10.8) X10*3/uL Hgb 14.2 D (14.0-18.0) g/dl Hct 41.5 L (42.0-52.0) % Plt Count 358 D (160-400) X10*3/uL BMP 06/09/25 11:12 Sodium 139 Potassium 3.4 Chloride 87 L Carbon Dioxide 36 H BUN 48 H Creatinine 1.63 H Calcium 10.3 H D Liver Function 06/09/25 Range/Units 11:12 Total Bilirubin 0.5 (0.0-1.0) mg/dL Direct Bilirubin 0.2 (0.0-0.5) mg/dL AST 120 H (5-37) U/L ALT 18 (0-40) U/L Alkaline Phosphatase 128 H (39-117) U/L Albumin 4.2 (3.5-5.0) g/dL Urine 06/10/25 Range/Units 00:41 Urine Color Yellow Urine Appearance Clear Urine pH 5.0 (5.0-9.0) Ur Specific [place] 1.015 (1.005-1.025) Urine Protein Trace (Neg-Trace) mg/dL Urine Glucose (UA) Negative (Negative) mg/dL Assessment and Plan (1) Acute hypoxic on chronic hypercapnic respiratory failure: Status: Acute (2) Acute exacerbation of CHF (congestive heart failure): Qualifiers: Heart failure type: diastolic Qualified Code(s): I50.33 - Acute on chronic diastolic (congestive) heart failure Status: Acute (3) COPD (chronic obstructive pulmonary disease): Qualifiers: COPD type: unspecified COPD Qualified Code(s): J44.9 - Chronic obstructive pulmonary disease, unspecified Status: Acute (4) ROLAN (acute kidney injury): Status: Acute Plan 69-year-old male with a history of atrial fibrillation, congestive heart failure, COPD, alcohol abuse, and hypothyroidism? admitted to ICU for management of acute hypercapnic respiratory failure requiring BiPAP support due to Congestive heart failure exacerbation Neuro:? ??Lethargy:? due to hypercapnia,? should improve with correction of CO2.? Cardiac:?? ?Congestive heart failure exacerbation:? patient has underlying history of Congestive heart failure,? was recently admitted for Congestive heart failure exacerbation, Last echocardiogram on May 09 showed LVEF 68%, no wall motion abnormalities, and moderate dilation of the ascending aorta. Patient's baseline furosemide dose is 40 mg oral once daily,? was increased to 40 mg b.i.d..? Patient did not have a Curry earlier,? no accurate intake and output.? Now has a Curry,? Received 80 mg IV push Lasix.? Continue to monitor diuresing.? ?Underlying history of AFib:? rate control at this time,? continue metoprolol,? use IV while NPO.? continue rivaroxaban.? Pulmonary:?? acute hypoxic and hypercapnic respiratory failure secondary to Congestive heart failure exacerbation requiring BiPAP support.? Continue diuresis.? Keep 02 saturation 88-92% ? continue antibiotics. Wean off bipap as tolerated Renal:??? ROLAN: nonoliguric.? Likely hypoperfusion.? Patient has Congestive heart failure exacerbation unable to give fluids.? Use cautions with diuresing.? Continue to trend renal indices Endo:? No acute issues.?? GI:? No acute issues. ID:? No acute issues Heme/Onc:? No acute issues. Psych:? ETOH abuse: Does not appear to have symptoms of alcohol withdrawal syndrome at this time. On folic acid and thiamine. Will initiate phenobarb protocol if patient develops HALEIGH symptoms Miscellaneous:? No acute issues. Prophylaxis: ? home Xarelto, doesn't require GI prophylaxis Diet:? NPO while on BIPAP CODE STATUS: FULL CODE. MOLST form from 2024 is not valid? Critical care time spent:? 60 minutes
[2025-06-10 05:06] LABS: Venous Blood Gas Refer to POC result
[2025-06-10 05:08] LABS: Hematocrit 39.1 % (42.0-52.0); Hemoglobin 12.8 g/dl (14.0-18.0); Imm Gran Abs Auto 0.46 X10*3/uL (0.00-0.03); Imm Gran Pct Auto 3.5 % (0.0-0.4); Lymphocytes Absolute Auto 0.6 X10*3/uL (1.2-4.9); MANUAL DIFF FLAG NO; Mean Corpuscular HGB Conc 32.7 g/dl (31.0-36.0); Mean Corpuscular Hemoglobin 31.4 pg (27.0-33.0); Mean Corpuscular Volume 95.8 fL (80.0-98.0); NRBC Abs Auto 0.020 X10*3/uL (0.0-0.012); NRBC Pct Auto 0.2 /100WBC (0.0-0.2); Platelet Count 331 X10*3/uL (160-400); Red Blood Count 4.08 X10*6/uL (4.60-5.80); White Blood Count 13.3 X10*3/uL (4.8-10.8)
[2025-06-10 05:11] LABS: VBG HCO3 42 mmol/L (22-26); VBG O2 % Saturation 100.0 %
[2025-06-10 05:26] LABS: Alanine Aminotransferase 22 U/L (0-40); Albumin Level 3.8 g/dL (3.5-5.0); Alkaline Phosphatase 117 U/L (39-117); Aspartate Amino Transferase 104 U/L (5-37); Blood Urea Nitrogen 55 mg/dL (9-16); Creatinine Clr Calc Pharmacy 41.9; Estimated Glomerular Filt Rate 40; Magnesium 2.1 mg/dL (1.6-2.6); Total Protein 6.8 g/dL (6.5-8.0)
[2025-06-10 05:27] LABS: B Type Natriuretic Peptide 323 pg/mL (<100)
[2025-06-10 05:52] LABS: Anion Gap 20 (12-20); Calcium 8.9 mg/dL (8.4-10.2); Carbon Dioxide 36 mmol/L (22-29); Chloride 87 mmol/L (96-108); Potassium 4.3 mmol/L (3.3-5.1); Sodium 139 mmol/L (135-145)
--- NOTE | 2025-06-10 06:24 | PC.NURSE ---
TRANSFERRED TO [facility] APPROX 04:30....CONFUSED/DISORIENTED/ATTEMPTING TO PULL OFF BIPAP..BILATERAL SOFT WRIST RESTRAINTS PLACED FOR AIRWAY SAFETY PER PROVIDER..MAINTAINED BIPAP 20/8--BACK UP RATE 18--FIO2 50%...RR 18-20..Ve 8-9 l/m...SAO2 89-92%...PER PROVIDER SAO2 GOAL 88-92%...VERDUGO DRAINED 275ML YELLOW URINE..NSR FREQUENT PAC'S..BP STABLE...REPEAT LABS/VBG DRAWN AND REVIEWED BY PROVIDER..CURRENTLY DOZING ON BIPAP..NO DISTRESS
[2025-06-10] MEDS: Furosemide 40 MG/4 ML VIAL IVPUSH (08:05)
[2025-06-10 09:51] LABS: VBG HCO3 39 mmol/L (22-26); VBG O2 % Saturation 76.0 %
--- NOTE | 2025-06-10 09:58 | PC.RT ---
Pt awake and coop, transitioned to 2 lpm etco2 n/c. aware.
[2025-06-10 10:22] LABS: Venous Blood Gas Refer to POC result
--- NOTE | 2025-06-10 14:08 | MHC.CM.PN ---
Pt confused and unable to participate in CM assessment: Information obtained from pt's sister/HCP Alem with whom he resides. Alem states pt is independent at baseline and has no services. [facility] and [facility] providers [facility]. Alem will transport pt to home. [facility]/HCP on file.
[2025-06-11] VITALS (13 sets, daily range): BP systolic 95–131; BP diastolic 53–75; PULSE 90–170; RESP 16–26; TEMP 36.2–36.6; O2SAT 83–98
[2025-06-11 06:09] LABS: MANUAL DIFF FLAG NO
[2025-06-11 06:12] LABS: Hematocrit 37.0 % (42.0-52.0); Hemoglobin 12.2 g/dl (14.0-18.0); Imm Gran Abs Auto 0.75 X10*3/uL (0.00-0.03); Imm Gran Pct Auto 3.5 % (0.0-0.4); Lymphocytes Absolute Auto 1.6 X10*3/uL (1.2-4.9); Mean Corpuscular HGB Conc 33.0 g/dl (31.0-36.0); Mean Corpuscular Hemoglobin 31.3 pg (27.0-33.0); Mean Corpuscular Volume 94.9 fL (80.0-98.0); NRBC Abs Auto 0.100 X10*3/uL (0.0-0.012); NRBC Pct Auto 0.5 /100WBC (0.0-0.2); Platelet Count 275 X10*3/uL (160-400); Red Blood Count 3.90 X10*6/uL (4.60-5.80); White Blood Count 21.5 X10*3/uL (4.8-10.8)
[2025-06-11 06:14] LABS: Venous Blood Gas Refer to POC result
[2025-06-11 06:14] LABS: VBG HCO3 47 mmol/L (22-26); VBG O2 % Saturation 66.0 %
[2025-06-11 06:27] LABS: Alanine Aminotransferase 18 U/L (0-40); Albumin Level 3.7 g/dL (3.5-5.0); Alkaline Phosphatase 117 U/L (39-117); Anion Gap 16 (12-20); Aspartate Amino Transferase 63 U/L (5-37); Blood Urea Nitrogen 69 mg/dL (9-16); Calcium 8.8 mg/dL (8.4-10.2); Carbon Dioxide 39 mmol/L (22-29); Chloride 87 mmol/L (96-108); Creatinine Clr Calc Pharmacy 44.0; Estimated Glomerular Filt Rate 42; Magnesium 1.9 mg/dL (1.6-2.6); Potassium 3.6 mmol/L (3.3-5.1); Sodium 138 mmol/L (135-145); Total Protein 6.4 g/dL (6.5-8.0)
[2025-06-11] MEDS: Albuterol/Iprat 2.5/0.5MG 3 ML AMPUL.NEB INHALE ×3 (07:47→20:45)
[2025-06-11] MEDS: Fluticasone/Vilanterol 200/25 BLST.W.DEV 1 PUFF INHALE (08:08)
[2025-06-11] MEDS: Tiotropium Bromide 2.5 mcg 1 PUFF/2.5 MCG MIST.INHAL 2 PUFF INHALE (08:08)
[2025-06-11] MEDS: 0.9 % Sodium Chloride Flush 3 ML SYRINGE IVFLUSH ×3 (08:35→21:00)
[2025-06-11] MEDS: Furosemide 40 MG/4 ML VIAL IVPUSH (08:36)
[2025-06-11] MEDS: guaiFENesin 200 MG/10 ML 10 ML LIQUID PO (11:20)
--- NOTE | 2025-06-11 14:28 | HO.PM.IMPN ---
Subjective Subjective Date of Service: 06/11/25 Interval History: Patient lying in bed. Comfortable. Reports his breathing feels better as compared to yesterday. Intermittent coughing with difficult sputum expectoration Denies symptoms of withdrawal, tremulousness, sweating, palpitations. Review of Systems Review of Systems: Yes all other systems are reviewed and are negative Physical Exam Exam: Exam: General: A&O x3, oriented to time place person and situation, comfortable, no pain Cardiac: S1, S2 auscultated with no S3/4, no MRG. Well perfused. Irregularly irregular. Respiratory: Tachypneic, no distress, shallow breathing. Bibasilar crepitations auscultated on examination, with reduced breath sounds at the bases bilaterally. End expiratory wheezing auscultated in the upper zones. No peripheral or central cyanosis GI/ : No abdominal pain on palpation, no masses or distentions. MSK: Normal ambulation without pain at bony prominences or musculature Neurological: Normal neurological examination on overview, without obvious CN II-XII abnormalities. Vital Signs: Vital Signs: Last Vital Signs Temp 97.3 F 06/11/25 12:00 Pulse 118 H 06/11/25 12:08 Resp 16 06/11/25 12:08 BP 112/53 L 06/11/25 12:00 Pulse Ox 92 06/11/25 12:00 O2 Del Method Nasal Cannula 06/11/25 12:00 O2 Flow Rate 2 06/11/25 12:00 FiO2 24 06/10/25 09:00 BMI result Body Mass Index 28.3 Objective Data Active Medications Acetaminophen (Acetaminophen 325 Mg Tablet) 650 mg PO Q6H PRN PRN Reason: Pain, Mild 1-3,fever,headache Last Admin: 06/10/25 21:27 Dose: 650 mg Documented By: FACUNDO Acetazolamide (Acetazolamide Sodium 500 Mg Vial) 250 mg IVPUSH BID MARYA Stop: 06/12/25 21:01 Last Admin: 06/11/25 08:36 Dose: 250 mg Documented By: DAVID Albuterol Sulfate (Albuterol Sulfate (0.083%) 2.5 Mg/3 Ml Vial.Neb) 2.5 mg INHALE Q2H PRN PRN Reason: Shortness of Breath/Wheezing Albuterol Sulfate (Albuterol Sulfate 90 Mcg 8 Gm Inhaler) 2 puff INHALE Q4H PRN PRN Reason: breathing Albuterol/Ipratropium (Albuterol/Iprat 2.5/0.5mg 3 Ml Ampul.Neb) 3 ml INHALE RQ4H WHILE AWAKE [facility] Last Admin: 06/11/25 12:06 Dose: 3 ml Documented By: RADHA Atorvastatin Calcium (Atorvastatin Calcium 40 Mg Tablet) 40 mg PO DAILY [facility] Last Admin: 06/11/25 08:36 Dose: 40 mg Documented By: DAVID Calcium Carbonate (Calcium Carbonate 750 Mg Tab.Chew) 750 mg PO Q4H PRN PRN Reason: Heartburn Ceftriaxone Sodium (Ceftriaxone Sodium 1 Gm Vial) 1 gm IVPUSH Q24H [facility] Last Admin: 06/11/25 11:20 Dose: 1 gm Documented By: DAVID Fluticasone/Vilanterol (Fluticasone/Vilanterol 200/25 Blst.W.Dev) 1 puff INHALE DAILY [facility] Last Admin: 06/11/25 08:08 Dose: 1 puff Documented By: RADHA Folic Acid (Folic Acid 1 Mg Tablet) 1 mg PO DAILY [facility] Last Admin: 06/11/25 08:36 Dose: 1 mg Documented By: DAVID Furosemide (Furosemide 40 Mg/4 Ml Vial) 40 mg IVPUSH DAILY [facility]; Protocol Last Admin: 06/11/25 08:36 Dose: 40 mg Documented By: DAVID Guaifenesin (Guaifenesin 200 Mg/10 Ml 10 Ml Liquid) 10 ml PO Q4H PRN PRN Reason: Cough Last Admin: 06/11/25 11:20 Dose: 10 ml Documented By: DAVID Levothyroxine Sodium (Levothyroxine Sodium 75 Mcg Tablet) 75 mcg PO DAILY [facility] Last Admin: 06/11/25 08:35 Dose: 75 mcg Documented By: DAVID Magnesium Hydroxide (Milk Of Magnesia 30 Ml Oral.Susp) 30 ml PO DAILY PRN PRN Reason: Constipation Rivaroxaban (Rivaroxaban 20 Mg Tablet) 20 mg PO DAILY [facility] Last Admin: 06/11/25 08:36 Dose: 20 mg Documented By: DAVID Sodium Chloride (0.9 % Sodium Chloride Flush 3 Ml Syringe) 3 ml IVFLUSH QSHIFT [facility] Last Admin: 06/11/25 08:35 Dose: 3 ml Documented By: DAVID Thiamine HCl (Thiamine Hcl 100 Mg Tablet) 100 mg PO DAILY [facility] Last Admin: 06/11/25 08:35 Dose: 100 mg Documented By: DAVID Tiotropium [place] (Tiotropium [place] 2.5 Mcg 1 Puff/2.5 Mcg Mist.Inhal) 2 puff INHALE DAILY [facility] Last Admin: 06/11/25 08:08 Dose: 2 puff Documented By: RADHA Labs 06/11/25 06:03 06/11/25 06:03 Labs: Laboratory Results - last 24 hr 06/11/25 06/11/25 06:03 06:10 MCV 94.9 MCH 31.3 MCHC 33.0 RDW 13.4 Plt Count 275 MPV 11.2 Immature Gran % (Auto) 3.5 H Neut % (Auto) 83.0 H Lymph % (Auto) 7.3 L [place] % (Auto) 5.9 Eos % (Auto) 0.0 Baso % (Auto) 0.3 Lymph # (Auto) 1.6 [place] # (Auto) 1.3 H Eos # (Auto) 0.0 Baso # (Auto) 0.1 Abs Immat Gran (auto) 0.75 H Absolute Neuts (auto) 17.9 H Absolute Nucleated RBC 0.100 H Nucleated RBC % (auto) 0.5 H VBG pH 7.39 VBG pCO2 78 VBG pO2 45 VBG HCO3 47 H VBG O2 Saturation 66.0 VBG Base Excess 18.4 Anion Gap 16 Estim Creat Clear Calc 44.0 Estimated GFR 42 Random Glucose 132 H Calcium 8.8 Phosphorus 2.2 L Magnesium 1.9 Total Bilirubin 0.3 AST 63 H ALT 18 Alkaline Phosphatase 117 Total Protein 6.4 L Albumin 3.7 Microbiology Microbiology Results: Microbiology 06/09/25 11:14 Blood Culture - Preliminary Blood - Venous No growth after 48 hours. 06/09/25 11:12 Blood Culture - Preliminary Blood - Venous No growth after 48 hours. Assessment and Plan (1) Acute exacerbation of CHF (congestive heart failure): Status: Acute (2) Atrial fibrillation with RVR: Status: Acute (3) ROLAN (acute kidney injury): Status: Acute (4) Alcohol use: Status: Acute (5) COPD (chronic obstructive pulmonary disease): Status: Acute (6) Pulmonary nodules: Status: Acute (7) Acute and chronic respiratory failure with hypoxia: Status: Acute (8) Acute hypoxic on chronic hypercapnic respiratory failure: Status: Acute (9) Acute exacerbation of chronic obstructive pulmonary disease: Status: Acute Plan Dickson Em, 69-year-old male with history of atrial fibrillation, congestive heart failure, COPD, ETOH abuse, and hypothyroidism, presenting with dyspnea, fatigue, and confusion, admitted with acute multifactorial hypoxic respiratory failure 2/2 acute infective COPD exacerbation and superimposed acute on chronic CHFpEF exacerbation. Multifactorial Acute Hypoxic Respiratory Failure Assessment: Patient presents with worsening dyspnea, orthopnea, and PND. Chest x-ray suggests possible pulmonary edema. Hypoxia noted with O2 saturation of 92% on 2L, improved to 98% on 6L. Acute on chronic exacerbation of COPD and heart failure likely contributing to respiratory failure. Active tobacco use and history of COPD on nocturnal oxygen further complicate the clinical picture. Likely infective element superimposed. Plan: - Continue IV ceftriaxone - Continue doxycycline 100 mg BID PO - Continue prednisone 60 mg OD PO - Continue Lasix (furosemide) 40 mg IV OD - Monitor intake and output - Obtain daily weights - Continue albuterol and ipratropium nebulizer treatments - Restart tiotropium Acute on Chronic Heart Failure Exacerbation Assessment: Patient reports orthopnea and PND, consistent with heart failure exacerbation. Chest x-ray suggests possible pulmonary edema. Last echocardiogram on May 09 showed LVEF 68%, no wall motion abnormalities, and moderate dilation of the ascending aorta. Patient's baseline furosemide dose is 40 mg oral once daily. Plan: - Continue Lasix (furosemide) 40 mg IV OD - Monitor intake and output - Obtain daily weights - Cardiac telemetry Atrial Fibrillation with Rapid Ventricular Response (RVR) on Rivaroxaban Assessment: Patient presented with palpitations and tachycardia. Initial pulse rate in ER was 175 bpm. Received diltiazem 20 mg IV with improvement in heart rate from 170 to 90-100 bpm, but remained in atrial fibrillation. Also received metoprolol tartrate 50 mg. Plan: - Metoprolol 25mg BID PO - PRN IV meoprolol 5mg for RVR - PRN IV diltiazem 5mg for RVR - Continue Rivaroxaban for anticoagulation COPD Exacerbation Assessment: Patient reports increased coughing with production of phlegm, worse when lying flat. History of COPD on nocturnal oxygen. Active tobacco use noted. Plan: - Continue IV ceftriaxone - Continue doxycycline 100 mg BID PO - Continue prednisone 60 mg OD PO - Continue albuterol and ipratropium nebulizer treatments - Continue tiotropium EtOH Abuse Plan; - CIWA score - folic acid - thiamine CHRONIC MEDICAL ISSUES - HLD: Atorvastatin 40 mg OD p.o. - Vitamin-D deficiency: Cholecalciferol 25 mg resume outpatient - Hypothyroidism: Levothyroxine 75 mcg OD p.o. QUALITY METRICS - VTE: Rivaroxaban - CODE STATUS: Full code - DIET: Cardiac Total time managing care of this patient today: 45 minutes. Quality Stroke Does the patient have a stroke diagnosis?: No VTE Prior VTE?: No VTE Risk Level:: Medical - moderate - high VTE Device Contraindication: Treatment Not Indicated VTE Drug Contraindication: N/A - Med Ordered
[2025-06-12] VITALS (7 sets, daily range): BP systolic 93–113; BP diastolic 56–64; PULSE 83–95; RESP 15–18; TEMP 36.2–36.4; O2SAT 94–98
[2025-06-12 08:28] LABS: Hematocrit 41.4 % (42.0-52.0); Hemoglobin 13.2 g/dl (14.0-18.0); Mean Corpuscular HGB Conc 31.9 g/dl (31.0-36.0); Mean Corpuscular Hemoglobin 31.0 pg (27.0-33.0); Mean Corpuscular Volume 97.2 fL (80.0-98.0); NRBC Abs Auto 0.060 X10*3/uL (0.0-0.012); NRBC Pct Auto 0.5 /100WBC (0.0-0.2); Platelet Count 278 X10*3/uL (160-400); Red Blood Count 4.26 X10*6/uL (4.60-5.80); White Blood Count 12.0 X10*3/uL (4.8-10.8)
[2025-06-12 08:55] LABS: Band Neutrophils Percent 7 % (3-5); Lymphocytes Absolute Manual 1.9 X10*3/uL (1.2-4.9); Lymphocytes Percent Manual 16 % (20-40); Monocytes Absolute Manual 0.7 X10*3/uL (0.1-1.2); Monocytes Percent Manual 6 % (2-11); Myelocytes Absolute 0.2 X10*/uL; Myelocytes Percent 2 %; Neutrophils Absolute Manual 8.9 X10*3/uL (2.0-8.3); Neutrophils Percent Manual 67 % (45-73)
[2025-06-12 08:56] LABS: Eosinophils Absolute Manual 0.2 X10*3/uL (0.0-0.4); Eosinophils Percent Manual 2 % (0-4); RBC Morphology NOTED
[2025-06-12 08:58] LABS: Alanine Aminotransferase 14 U/L (0-40); Albumin Level 3.8 g/dL (3.5-5.0); Alkaline Phosphatase 112 U/L (39-117); Anion Gap 16 (12-20); Aspartate Amino Transferase 54 U/L (5-37); Blood Urea Nitrogen 48 mg/dL (9-16); Calcium 9.1 mg/dL (8.4-10.2); Carbon Dioxide 40 mmol/L (22-29); Chloride 92 mmol/L (96-108); Creatinine Clr Calc Pharmacy 59.2; Estimated Glomerular Filt Rate 59; Magnesium 2.2 mg/dL (1.6-2.6); Potassium 3.0 mmol/L (3.3-5.1); Sodium 145 mmol/L (135-145); Total Protein 6.4 g/dL (6.5-8.0)
[2025-06-12 08:59] LABS: Basophilic Stippling 2+ (3-5) /OIF; Macrocytosis 1+ (5-14) /OIF; Polychromasia 1+ (0-2) /OIF
[2025-06-12 09:01] LABS: Stomatocytes 1+ (5-14) /OIF
[2025-06-12 09:06] LABS: Large Platelet PRESENT
[2025-06-12] MEDS: 0.9 % Sodium Chloride Flush 3 ML SYRINGE IVFLUSH ×2 (10:01→20:58)
[2025-06-12] MEDS: Potassium Chloride/H20 10 MEQ/100 ML PIGGYBACK 100 MEQ IV ×4 (11:06→16:58)
[2025-06-12] MEDS: Albuterol/Iprat 2.5/0.5MG 3 ML AMPUL.NEB INHALE ×2 (15:26→20:49)
[2025-06-12 15:32] LABS: Anion Gap 13 (12-20); Blood Urea Nitrogen 42 mg/dL (9-16); Calcium 9.3 mg/dL (8.4-10.2); Carbon Dioxide 40 mmol/L (22-29); Chloride 94 mmol/L (96-108); Creatinine Clr Calc Pharmacy 64.6; Estimated Glomerular Filt Rate > 60; Potassium 3.3 mmol/L (3.3-5.1); Sodium 144 mmol/L (135-145)
[2025-06-12] MEDS: Potassium Chloride ER 20 MEQ TAB.ER.PRT PO (20:57)
[2025-06-13] VITALS (9 sets, daily range): BP systolic 98–139; BP diastolic 50–68; PULSE 75–108; RESP 16–20; TEMP 36.2–36.9; O2SAT 93–98
[2025-06-13] MEDS: Albuterol/Iprat 2.5/0.5MG 3 ML AMPUL.NEB INHALE ×3 (07:54→19:52)
[2025-06-13] MEDS: Fluticasone/Vilanterol 200/25 BLST.W.DEV 1 PUFF INHALE (07:54)
[2025-06-13] MEDS: Tiotropium Bromide 2.5 mcg 1 PUFF/2.5 MCG MIST.INHAL 2 PUFF INHALE (08:03)
[2025-06-13 08:10] LABS: Hematocrit 44.4 % (42.0-52.0); Hemoglobin 14.1 g/dl (14.0-18.0); Mean Corpuscular HGB Conc 31.8 g/dl (31.0-36.0); Mean Corpuscular Hemoglobin 30.7 pg (27.0-33.0); Mean Corpuscular Volume 96.7 fL (80.0-98.0); NRBC Abs Auto 0.000 X10*3/uL (0.0-0.012); NRBC Pct Auto 0.0 /100WBC (0.0-0.2); Platelet Count 288 X10*3/uL (160-400); Red Blood Count 4.59 X10*6/uL (4.60-5.80); White Blood Count 10.5 X10*3/uL (4.8-10.8)
[2025-06-13] MEDS: 0.9 % Sodium Chloride Flush 3 ML SYRINGE IVFLUSH ×3 (08:22→21:40)
[2025-06-13 08:25] LABS: Alanine Aminotransferase 20 U/L (0-40); Albumin Level 3.9 g/dL (3.5-5.0); Alkaline Phosphatase 117 U/L (39-117); Anion Gap 14 (12-20); Aspartate Amino Transferase 49 U/L (5-37); Blood Urea Nitrogen 32 mg/dL (9-16); Calcium 9.7 mg/dL (8.4-10.2); Carbon Dioxide 36 mmol/L (22-29); Chloride 98 mmol/L (96-108); Creatinine Clr Calc Pharmacy 68.9; Estimated Glomerular Filt Rate > 60; Magnesium 2.2 mg/dL (1.6-2.6); Potassium 3.7 mmol/L (3.3-5.1); Sodium 144 mmol/L (135-145); Total Protein 6.9 g/dL (6.5-8.0)
[2025-06-13] MEDS: Potassium Chloride ER 20 MEQ TAB.ER.PRT PO ×2 (08:27→21:40)
[2025-06-13] MEDS: Milk of Magnesia 30 ML ORAL.SUSP PO (08:34)
[2025-06-13 09:02] LABS: Atypical Lymph Absolute Manual 0.1 x10*3/uL; Atypical Lymphs Percent Manual 1 % (0-6); Band Neutrophils Percent 1 % (3-5); Lymphocytes Absolute Manual 1.9 X10*3/uL (1.2-4.9); Lymphocytes Percent Manual 18 % (20-40); Metamyelocytes Absolute 0.3 X10*3/uL; Metamyelocytes Percent 3 %; Monocytes Absolute Manual 0.7 X10*3/uL (0.1-1.2); Monocytes Percent Manual 7 % (2-11); Myelocytes Absolute 0.2 X10*/uL; Myelocytes Percent 2 %; Neutrophils Absolute Manual 7.2 X10*3/uL (2.0-8.3); Neutrophils Percent Manual 68 % (45-73)
[2025-06-13 09:06] LABS: Basophilic Stippling 1+ (0-2) /OIF; Large Platelet PRESENT; Macrocytosis 1+ (5-14) /OIF; Polychromasia 1+ (0-2) /OIF; RBC Morphology NOTED; Smudge Cells PRESENT; Stomatocytes 2+ (15-30) /OIF; Toxic Vacuolation PRESENT
--- NOTE | 2025-06-13 16:26 | P.PNIM_ITS ---
Subjective Subjective Date of Service: 06/12/25 Interval History: No new issues or complaints Patient reports his breathing is within normal limits Review of Systems Review of Systems: Yes all other systems are reviewed and are negative Physical Exam 2 Exam: Exam: General: A&O x3, oriented to time place person and situation, comfortable, no pain Cardiac: S1, S2 auscultated with no S3/4, no MRG. Well perfused. Irregularly irregular. Respiratory: Tachypneic, no distress, shallow breathing. Bibasilar crepitations auscultated on examination, with reduced breath sounds at the bases bilaterally. No peripheral or central cyanosis. on NC O2 GI/ : No abdominal pain on palpation, no masses or distentions. MSK: Normal ambulation without pain at bony prominences or musculature Neurological: Normal neurological examination on overview, without obvious CN II-XII abnormalities. Vital Signs: Vital Signs: Last Vital Signs Temp 97.1 F 06/13/25 15:28 Pulse 88 06/13/25 15:28 Resp 18 06/13/25 15:28 BP 105/56 L 06/13/25 15:28 Pulse Ox 95 06/13/25 15:28 O2 Del Method Nasal Cannula 06/13/25 15:28 O2 Flow Rate 2 06/13/25 15:28 FiO2 24 06/10/25 09:00 BMI result Body Mass Index 28.3 Objective Data Active Medications Acetaminophen (Acetaminophen 325 Mg Tablet) 650 mg PO Q6H PRN PRN Reason: Pain, Mild 1-3,fever,headache Last Admin: 06/10/25 21:27 Dose: 650 mg Documented By: FACUNDO Albuterol Sulfate (Albuterol Sulfate (0.083%) 2.5 Mg/3 Ml Vial.Neb) 2.5 mg INHALE Q2H PRN PRN Reason: Shortness of Breath/Wheezing Albuterol Sulfate (Albuterol Sulfate 90 Mcg 8 Gm Inhaler) 2 puff INHALE Q4H PRN PRN Reason: breathing Albuterol/Ipratropium (Albuterol/Iprat 2.5/0.5mg 3 Ml Ampul.Neb) 3 ml INHALE RQ4H WHILE AWAKE MARYA Last Admin: 06/13/25 15:13 Dose: Not Given Documented By: RADHA Non-Admin Reason: Patient Refused Atorvastatin Calcium (Atorvastatin Calcium 40 Mg Tablet) 40 mg PO DAILY [facility] Last Admin: 06/13/25 08:24 Dose: 40 mg Documented By: KYMBERLY Calcium Carbonate (Calcium Carbonate 750 Mg Tab.Chew) 750 mg PO Q4H PRN PRN Reason: Heartburn Ceftriaxone Sodium (Ceftriaxone Sodium 1 Gm Vial) 1 gm IVPUSH Q24H [facility] Last Admin: 06/13/25 11:07 Dose: 1 gm Documented By: DAYA Doxycycline Monohydrate (Doxycycline Monohydrate 100 Mg Capsule) 100 mg PO Q12H [facility] Last Admin: 06/13/25 11:07 Dose: 100 mg Documented By: DAYA Fluticasone/Vilanterol (Fluticasone/Vilanterol 200/25 Blst.W.Dev) 1 puff INHALE DAILY [facility] Last Admin: 06/13/25 07:54 Dose: 1 puff Documented By: RADHA Folic Acid (Folic Acid 1 Mg Tablet) 1 mg PO DAILY [facility] Last Admin: 06/13/25 08:24 Dose: 1 mg Documented By: KYMBERLY Furosemide (Furosemide 40 Mg/4 Ml Vial) 40 mg IVPUSH DAILY [facility]; Protocol Last Admin: 06/12/25 09:11 Dose: Not Given Documented By: CHRISTINA Non-Admin Reason: Physician Held Med Guaifenesin (Guaifenesin 200 Mg/10 Ml 10 Ml Liquid) 10 ml PO Q4H PRN PRN Reason: Cough Last Admin: 06/11/25 11:20 Dose: 10 ml Documented By: DAVID Levothyroxine Sodium (Levothyroxine Sodium 75 Mcg Tablet) 75 mcg PO DAILY [facility] Last Admin: 06/13/25 08:24 Dose: 75 mcg Documented By: KYMBERLY Magnesium Hydroxide (Milk Of Magnesia 30 Ml Oral.Susp) 30 ml PO DAILY PRN PRN Reason: Constipation Last Admin: 06/13/25 08:34 Dose: 30 ml Documented By: KYMBERLY Potassium Chloride (Potassium Chloride Er 20 Meq Tab.Er.Prt) 20 meq PO BID [facility] Last Admin: 06/13/25 08:27 Dose: 20 meq Documented By: KYMBERLY Rivaroxaban (Rivaroxaban 20 Mg Tablet) 20 mg PO DAILY [facility] Last Admin: 06/13/25 08:24 Dose: 20 mg Documented By: KYMBERLY Sodium Chloride (0.9 % Sodium Chloride Flush 3 Ml Syringe) 3 ml IVFLUSH QSHIFT [facility] Last Admin: 06/13/25 16:21 Dose: 3 ml Documented By: KYMBERLY Thiamine HCl (Thiamine Hcl 100 Mg Tablet) 100 mg PO DAILY [facility] Last Admin: 06/13/25 08:24 Dose: 100 mg Documented By: KYMBERLY Tiotropium [place] (Tiotropium [place] 2.5 Mcg 1 Puff/2.5 Mcg Mist.Inhal) 2 puff INHALE DAILY [facility] Last Admin: 06/13/25 08:03 Dose: 2 puff Documented By: RADHA Labs 06/13/25 07:15 06/13/25 07:15 Labs: Laboratory Results - last 24 hr 06/12/25 06/13/25 07:18 07:15 MCV 96.7 MCH 30.7 MCHC 31.8 RDW 14.0 Plt Count 288 MPV 12.0 Immature Gran % (Auto) Cancelled Neut % (Auto) Cancelled Lymph % (Auto) Cancelled [place] % (Auto) Cancelled Eos % (Auto) Cancelled Baso % (Auto) Cancelled Lymph # (Auto) Cancelled [place] # (Auto) Cancelled Eos # (Auto) Cancelled Baso # (Auto) Cancelled Abs Immat Gran (auto) Cancelled Absolute Neuts (auto) Cancelled Absolute Nucleated RBC 0.000 Nucleated RBC % (auto) 0.0 Neutrophils % (Manual) 68 Band Neutrophils % 1 L Lymphocytes % (Manual) 18 L Atypical Lymphs % (Man) 1 Monocytes % (Manual) 7 Metamyelocytes % 3 Myelocytes % 2 Abs Neuts (Manual) 7.2 Lymphocytes # (Manual) 1.9 Atyp Lymphs # (Manual) 0.1 Monocytes # (Manual) 0.7 Metamyelocytes # 0.3 Myelocytes # 0.2 [place] Cells PRESENT Toxic Vacuolation PRESENT Platelet Estimate NORMAL Large Platelets PRESENT Plt Morphology Comment NOTED RBC Morphology NOTED Polychromasia 1+ (0-2) Basophilic Stippling 1+ (0-2) Macrocytosis 1+ (5-14) Stomatocytes 2+ (15-30) Smear Path Review SEE NOTE Anion Gap 14 Estim Creat Clear Calc 68.9 Estimated GFR > 60 Random Glucose 108 Calcium 9.7 Magnesium 2.2 Total Bilirubin 0.3 AST 49 H ALT 20 Alkaline Phosphatase 117 Total Protein 6.9 Albumin 3.9 Assessment and Plan (1) Alcohol use: Status: Acute (2) Acute exacerbation of CHF (congestive heart failure): Status: Acute (3) Atrial fibrillation with RVR: Status: Acute (4) ROLAN (acute kidney injury): Status: Acute (5) COPD (chronic obstructive pulmonary disease): Status: Acute (6) Acute and chronic respiratory failure with hypoxia: Status: Acute Plan Dickson Em, 69-year-old male with history of atrial fibrillation, congestive heart failure, COPD, ETOH abuse, and hypothyroidism, presenting with dyspnea, fatigue, and confusion, admitted with acute multifactorial hypoxic respiratory failure 2/2 acute infective COPD exacerbation and superimposed acute on chronic CHFpEF exacerbation. Multifactorial Acute Hypoxic Respiratory Failure Assessment: Patient presents with worsening dyspnea, orthopnea, and PND. Chest x-ray suggests possible pulmonary edema. Hypoxia noted with O2 saturation of 92% on 2L, improved to 98% on 6L. Acute on chronic exacerbation of COPD and heart failure likely contributing to respiratory failure. Active tobacco use and history of COPD on nocturnal oxygen further complicate the clinical picture. Likely infective element superimposed. Plan: - Continue IV ceftriaxone - Continue doxycycline 100 mg BID PO - Continue prednisone 60 mg OD PO - Continue Lasix (furosemide) 40 mg IV OD - Monitor intake and output - Obtain daily weights - Continue albuterol and ipratropium nebulizer treatments - Restart tiotropium Acute on Chronic Heart Failure Exacerbation Assessment: Patient reports orthopnea and PND, consistent with heart failure exacerbation. Chest x-ray suggests possible pulmonary edema. Last echocardiogram on May 09 showed LVEF 68%, no wall motion abnormalities, and moderate dilation of the ascending aorta. Patient's baseline furosemide dose is 40 mg oral once daily. Plan: - Continue Lasix (furosemide) 40 mg IV OD - Monitor intake and output - Obtain daily weights - Cardiac telemetry Atrial Fibrillation with Rapid Ventricular Response (RVR) on Rivaroxaban Assessment: Patient presented with palpitations and tachycardia. Initial pulse rate in ER was 175 bpm. Received diltiazem 20 mg IV with improvement in heart rate from 170 to 90-100 bpm, but remained in atrial fibrillation. Also received metoprolol tartrate 50 mg. Plan: - Metoprolol 25mg BID PO - PRN IV meoprolol 5mg for RVR - PRN IV diltiazem 5mg for RVR - Continue Rivaroxaban for anticoagulation COPD Exacerbation Assessment: Patient reports increased coughing with production of phlegm, worse when lying flat. History of COPD on nocturnal oxygen. Active tobacco use noted. Plan: - Continue IV ceftriaxone - Continue doxycycline 100 mg BID PO - Continue prednisone 60 mg OD PO - Continue albuterol and ipratropium nebulizer treatments - Continue tiotropium EtOH Abuse At risk of withdrawal Plan; - CIWA score - folic acid - thiamine CHRONIC MEDICAL ISSUES - HLD: Atorvastatin 40 mg OD p.o. - Vitamin-D deficiency: Cholecalciferol 25 mg resume outpatient - Hypothyroidism: Levothyroxine 75 mcg OD p.o. QUALITY METRICS - VTE: Rivaroxaban - CODE STATUS: Full code - DIET: Cardiac Total time managing care of this patient today: 35 minutes. Quality Stroke Does the patient have a stroke diagnosis?: No VTE Prior VTE?: No VTE Risk Level:: Medical - moderate - high VTE Device Contraindication: Treatment Not Indicated VTE Drug Contraindication: N/A - Med Ordered
--- NOTE | 2025-06-13 16:27 | P.PNIM_ITS ---
Subjective Subjective Date of Service: 06/13/25 Interval History: Patient feels well today. No new complaints. He reports that his breathing is relatively stable, with a mild cough, productive sputum. The patient feels back to his baseline, however remains on nasal cannula without to 2 L. O2 saturations decreased with mobility. His examination is significantly improved as compared to yesterday's. Review of Systems Review of Systems: Yes all other systems are reviewed and are negative Physical Exam 2 Exam: Exam: General: A&O x3, oriented to time place person and situation, comfortable, no pain Cardiac: S1, S2 auscultated with no S3/4, no MRG. Well perfused. Irregularly irregular. Respiratory: Tachypneic, no distress, shallow breathing. Crepitations auscultated improved compared to yesterday at the bases, with reduced breath sounds at the bases bilaterally. No peripheral or central cyanosis. NC 2 L O2 GI/ : No abdominal pain on palpation, no masses or distentions. MSK: Normal ambulation without pain at bony prominences or musculature Neurological: Normal neurological examination on overview, without obvious CN II-XII abnormalities. Vital Signs: Vital Signs: Last Vital Signs Temp 97.1 F 06/13/25 15:28 Pulse 88 06/13/25 15:28 Resp 18 06/13/25 15:28 BP 105/56 L 06/13/25 15:28 Pulse Ox 95 06/13/25 15:28 O2 Del Method Nasal Cannula 06/13/25 15:28 O2 Flow Rate 2 06/13/25 15:28 FiO2 24 06/10/25 09:00 BMI result Body Mass Index 28.3 Objective Data Active Medications Acetaminophen (Acetaminophen 325 Mg Tablet) 650 mg PO Q6H PRN PRN Reason: Pain, Mild 1-3,fever,headache Last Admin: 06/10/25 21:27 Dose: 650 mg Documented By: FACUNDO Albuterol Sulfate (Albuterol Sulfate (0.083%) 2.5 Mg/3 Ml Vial.Neb) 2.5 mg INHALE Q2H PRN PRN Reason: Shortness of Breath/Wheezing Albuterol Sulfate (Albuterol Sulfate 90 Mcg 8 Gm Inhaler) 2 puff INHALE Q4H PRN PRN Reason: breathing Albuterol/Ipratropium (Albuterol/Iprat 2.5/0.5mg 3 Ml Ampul.Neb) 3 ml INHALE RQ4H WHILE AWAKE [facility] Last Admin: 06/13/25 15:13 Dose: Not Given Documented By: RADHA Non-Admin Reason: Patient Refused Atorvastatin Calcium (Atorvastatin Calcium 40 Mg Tablet) 40 mg PO DAILY [facility] Last Admin: 06/13/25 08:24 Dose: 40 mg Documented By: KYMBERLY Calcium Carbonate (Calcium Carbonate 750 Mg Tab.Chew) 750 mg PO Q4H PRN PRN Reason: Heartburn Ceftriaxone Sodium (Ceftriaxone Sodium 1 Gm Vial) 1 gm IVPUSH Q24H [facility] Last Admin: 06/13/25 11:07 Dose: 1 gm Documented By: DAYA Doxycycline Monohydrate (Doxycycline Monohydrate 100 Mg Capsule) 100 mg PO Q12H [facility] Last Admin: 06/13/25 11:07 Dose: 100 mg Documented By: DAYA Fluticasone/Vilanterol (Fluticasone/Vilanterol 200/25 Blst.W.Dev) 1 puff INHALE DAILY [facility] Last Admin: 06/13/25 07:54 Dose: 1 puff Documented By: RADHA Folic Acid (Folic Acid 1 Mg Tablet) 1 mg PO DAILY [facility] Last Admin: 06/13/25 08:24 Dose: 1 mg Documented By: KYMBERLY Furosemide (Furosemide 40 Mg/4 Ml Vial) 40 mg IVPUSH DAILY [facility]; Protocol Last Admin: 06/12/25 09:11 Dose: Not Given Documented By: CHRISTINA Non-Admin Reason: Physician Held Med Guaifenesin (Guaifenesin 200 Mg/10 Ml 10 Ml Liquid) 10 ml PO Q4H PRN PRN Reason: Cough Last Admin: 06/11/25 11:20 Dose: 10 ml Documented By: DAVID Levothyroxine Sodium (Levothyroxine Sodium 75 Mcg Tablet) 75 mcg PO DAILY [facility] Last Admin: 06/13/25 08:24 Dose: 75 mcg Documented By: KYMBERLY Magnesium Hydroxide (Milk Of Magnesia 30 Ml Oral.Susp) 30 ml PO DAILY PRN PRN Reason: Constipation Last Admin: 06/13/25 08:34 Dose: 30 ml Documented By: KYMBERLY Potassium Chloride (Potassium Chloride Er 20 Meq Tab.Er.Prt) 20 meq PO BID [facility] Last Admin: 06/13/25 08:27 Dose: 20 meq Documented By: KYMBERLY Rivaroxaban (Rivaroxaban 20 Mg Tablet) 20 mg PO DAILY [facility] Last Admin: 06/13/25 08:24 Dose: 20 mg Documented By: KYMBERLY Sodium Chloride (0.9 % Sodium Chloride Flush 3 Ml Syringe) 3 ml IVFLUSH QSHIFT [facility] Last Admin: 06/13/25 16:21 Dose: 3 ml Documented By: KYMBERLY Thiamine HCl (Thiamine Hcl 100 Mg Tablet) 100 mg PO DAILY [facility] Last Admin: 06/13/25 08:24 Dose: 100 mg Documented By: KYMBERLY Tiotropium [place] (Tiotropium [place] 2.5 Mcg 1 Puff/2.5 Mcg Mist.Inhal) 2 puff INHALE DAILY [facility] Last Admin: 06/13/25 08:03 Dose: 2 puff Documented By: RADHA Labs 06/13/25 07:15 06/13/25 07:15 Labs: Laboratory Results - last 24 hr 06/12/25 06/13/25 07:18 07:15 MCV 96.7 MCH 30.7 MCHC 31.8 RDW 14.0 Plt Count 288 MPV 12.0 Immature Gran % (Auto) Cancelled Neut % (Auto) Cancelled Lymph % (Auto) Cancelled [place] % (Auto) Cancelled Eos % (Auto) Cancelled Baso % (Auto) Cancelled Lymph # (Auto) Cancelled [place] # (Auto) Cancelled Eos # (Auto) Cancelled Baso # (Auto) Cancelled Abs Immat Gran (auto) Cancelled Absolute Neuts (auto) Cancelled Absolute Nucleated RBC 0.000 Nucleated RBC % (auto) 0.0 Neutrophils % (Manual) 68 Band Neutrophils % 1 L Lymphocytes % (Manual) 18 L Atypical Lymphs % (Man) 1 Monocytes % (Manual) 7 Metamyelocytes % 3 Myelocytes % 2 Abs Neuts (Manual) 7.2 Lymphocytes # (Manual) 1.9 Atyp Lymphs # (Manual) 0.1 Monocytes # (Manual) 0.7 Metamyelocytes # 0.3 Myelocytes # 0.2 Smudge Cells PRESENT Toxic Vacuolation PRESENT Platelet Estimate NORMAL Large Platelets PRESENT Plt Morphology Comment NOTED RBC Morphology NOTED Polychromasia 1+ (0-2) Basophilic Stippling 1+ (0-2) Macrocytosis 1+ (5-14) Stomatocytes 2+ (15-30) Smear Path Review SEE NOTE Anion Gap 14 Estim Creat Clear Calc 68.9 Estimated GFR > 60 Random Glucose 108 Calcium 9.7 Magnesium 2.2 Total Bilirubin 0.3 AST 49 H ALT 20 Alkaline Phosphatase 117 Total Protein 6.9 Albumin 3.9 Assessment and Plan (1) Alcohol use: Status: Acute (2) Acute exacerbation of CHF (congestive heart failure): Status: Acute (3) Atrial fibrillation with RVR: Status: Acute (4) Acute hypoxic on chronic hypercapnic respiratory failure: Status: Acute (5) Supplemental oxygen dependent: Status: Acute (6) COPD (chronic obstructive pulmonary disease): Status: Acute (7) Pulmonary nodules: Status: Acute Plan Dickson Em, 69-year-old male with history of atrial fibrillation, congestive heart failure, COPD, ETOH abuse, and hypothyroidism, presenting with dyspnea, fatigue, and confusion, admitted with acute multifactorial hypoxic respiratory failure 2/2 acute infective COPD exacerbation and superimposed acute on chronic CHFpEF exacerbation. Multifactorial Acute Hypoxic Respiratory Failure Assessment: Patient presents with worsening dyspnea, orthopnea, and PND. Chest x-ray suggests possible pulmonary edema. Hypoxia noted with O2 saturation of 92% on 2L, improved to 98% on 6L. Acute on chronic exacerbation of COPD and heart failure likely contributing to respiratory failure. Active tobacco use and history of COPD on nocturnal oxygen further complicate the clinical picture. Likely infective element superimposed. Plan: - Continue IV ceftriaxone - Continue doxycycline 100 mg BID PO - Continue prednisone 60 mg OD PO - Continue Lasix (furosemide) 40 mg IV OD - Monitor intake and output - Obtain daily weights - Continue albuterol and ipratropium nebulizer treatments - Restart tiotropium Acute on Chronic Heart Failure Exacerbation Assessment: Patient reports orthopnea and PND, consistent with heart failure exacerbation. Chest x-ray suggests possible pulmonary edema. Last echocardiogram on May 09 showed LVEF 68%, no wall motion abnormalities, and moderate dilation of the ascending aorta. Patient's baseline furosemide dose is 40 mg oral once daily. Plan: - Continue Lasix (furosemide) 40 mg IV OD - Monitor intake and output - Obtain daily weights - Cardiac telemetry Atrial Fibrillation with Rapid Ventricular Response (RVR) on Rivaroxaban Assessment: Patient presented with palpitations and tachycardia. Initial pulse rate in ER was 175 bpm. Received diltiazem 20 mg IV with improvement in heart rate from 170 to 90-100 bpm, but remained in atrial fibrillation. Also received metoprolol tartrate 50 mg. Plan: - Metoprolol 25mg BID PO - PRN IV meoprolol 5mg for RVR - PRN IV diltiazem 5mg for RVR - Continue Rivaroxaban for anticoagulation COPD Exacerbation Assessment: Patient reports increased coughing with production of phlegm, worse when lying flat. History of COPD on nocturnal oxygen. Active tobacco use noted. Plan: - Continue IV ceftriaxone - Continue doxycycline 100 mg BID PO - Continue prednisone 60 mg OD PO - Continue albuterol and ipratropium nebulizer treatments - Continue tiotropium EtOH Abuse Plan; - CIWA score - folic acid - thiamine CHRONIC MEDICAL ISSUES - HLD: Atorvastatin 40 mg OD p.o. - Vitamin-D deficiency: Cholecalciferol 25 mg resume outpatient - Hypothyroidism: Levothyroxine 75 mcg OD p.o. QUALITY METRICS - VTE: Rivaroxaban - CODE STATUS: Full code - DIET: Cardiac DISPOSITION: Evaluation for STR/home with O2 Total time managing care of this patient today: 35 minutes. Quality Stroke Does the patient have a stroke diagnosis?: No VTE Prior VTE?: No VTE Risk Level:: Medical - moderate - high VTE Device Contraindication: Treatment Not Indicated VTE Drug Contraindication: N/A - Med Ordered
[2025-06-13] MEDS: guaiFENesin 200 MG/10 ML 10 ML LIQUID PO (23:39)
[2025-06-14] VITALS (13 sets, daily range): BP systolic 94–122; BP diastolic 53–75; PULSE 74–95; RESP 16–19; TEMP 36.3–36.9; O2SAT 91–100
[2025-06-14] MEDS: Tiotropium Bromide 2.5 mcg 1 PUFF/2.5 MCG MIST.INHAL 2 PUFF INHALE (07:54)
[2025-06-14] MEDS: Fluticasone/Vilanterol 200/25 BLST.W.DEV 1 PUFF INHALE (07:54)
[2025-06-14] MEDS: Albuterol/Iprat 2.5/0.5MG 3 ML AMPUL.NEB INHALE ×4 (07:57→19:24)
[2025-06-14] MEDS: Potassium Chloride ER 20 MEQ TAB.ER.PRT PO ×2 (09:05→21:32)
[2025-06-14] MEDS: Furosemide 40 MG/4 ML VIAL IVPUSH (09:05)
[2025-06-14] MEDS: 0.9 % Sodium Chloride Flush 3 ML SYRINGE IVFLUSH ×3 (09:06→21:31)
[2025-06-14] MEDS: Milk of Magnesia 30 ML ORAL.SUSP PO (09:23)
--- NOTE | 2025-06-14 12:30 | MHC.CM.PN ---
EMR reviewed and per MD rounds, pt is not medically cleared for discharge due to management of acute hypoxic respiratory failure/CHF exacerbation.
--- NOTE | 2025-06-14 14:04 | P.PNIM_ITS ---
Subjective Subjective Date of Service: 06/14/25 Interval History: Overall feeling better. Review of Systems Review of Systems: Yes all other systems are reviewed and are negative Physical Exam 2 Exam: Exam: General: AO X 3, no acute distress Resp: CTA bilateral CVS: S1,S2,RRR GI: +BS, NT, no distention Skin: No rash Neuro: motor grossly intact Psych: appropriate affect Vital Signs: Vital Signs: Last Vital Signs Temp 97.6 F 06/14/25 11:35 Pulse 89 06/14/25 11:35 Resp 18 06/14/25 11:35 BP 122/75 06/14/25 11:35 Pulse Ox 94 06/14/25 07:46 O2 Del Method Nasal Cannula 06/14/25 07:46 O2 Flow Rate 2 06/14/25 07:46 FiO2 24 06/10/25 09:00 BMI result Body Mass Index 28.3 Objective Data Active Medications Acetaminophen (Acetaminophen 325 Mg Tablet) 650 mg PO Q6H PRN PRN Reason: Pain, Mild 1-3,fever,headache Last Admin: 06/10/25 21:27 Dose: 650 mg Documented By: FACUNDO Albuterol Sulfate (Albuterol Sulfate (0.083%) 2.5 Mg/3 Ml Vial.Neb) 2.5 mg INHALE Q2H PRN PRN Reason: Shortness of Breath/Wheezing Albuterol Sulfate (Albuterol Sulfate 90 Mcg 8 Gm Inhaler) 2 puff INHALE Q4H PRN PRN Reason: breathing Albuterol/Ipratropium (Albuterol/Iprat 2.5/0.5mg 3 Ml Ampul.Neb) 3 ml INHALE RQ4H WHILE AWAKE [facility] Last Admin: 06/14/25 11:30 Dose: 3 ml Documented By: RAJIV Atorvastatin Calcium (Atorvastatin Calcium 40 Mg Tablet) 40 mg PO DAILY [facility] Last Admin: 06/14/25 09:05 Dose: 40 mg Documented By: KYMBERLY Calcium Carbonate (Calcium Carbonate 750 Mg Tab.Chew) 750 mg PO Q4H PRN PRN Reason: Heartburn Ceftriaxone Sodium (Ceftriaxone Sodium 1 Gm Vial) 1 gm IVPUSH Q24H [facility] Last Admin: 06/14/25 09:18 Dose: 1 gm Documented By: KYMBERLY Doxycycline Monohydrate (Doxycycline Monohydrate 100 Mg Capsule) 100 mg PO Q12H [facility] Last Admin: 06/14/25 12:40 Dose: 100 mg Documented By: KYMBERLY Fluticasone/Vilanterol (Fluticasone/Vilanterol 200/25 Blst.W.Dev) 1 puff INHALE DAILY [facility] Last Admin: 06/14/25 07:54 Dose: 1 puff Documented By: RAJIV Folic Acid (Folic Acid 1 Mg Tablet) 1 mg PO DAILY [facility] Last Admin: 06/14/25 09:05 Dose: 1 mg Documented By: KYMBERLY Furosemide (Furosemide 40 Mg/4 Ml Vial) 40 mg IVPUSH DAILY [facility]; Protocol Last Admin: 06/14/25 09:05 Dose: 40 mg Documented By: KYMBERLY Guaifenesin (Guaifenesin 200 Mg/10 Ml 10 Ml Liquid) 10 ml PO Q4H PRN PRN Reason: Cough Last Admin: 06/13/25 23:39 Dose: 10 ml Documented By: LEDY Levothyroxine Sodium (Levothyroxine Sodium 75 Mcg Tablet) 75 mcg PO DAILY [facility] Last Admin: 06/14/25 09:05 Dose: 75 mcg Documented By: KYMBERLY Magnesium Hydroxide (Milk Of Magnesia 30 Ml Oral.Susp) 30 ml PO DAILY PRN PRN Reason: Constipation Last Admin: 06/14/25 09:23 Dose: 30 ml Documented By: KYMBERLY Potassium Chloride (Potassium Chloride Er 20 Meq Tab.Er.Prt) 20 meq PO BID [facility] Last Admin: 06/14/25 09:05 Dose: 20 meq Documented By: KYMBERLY Rivaroxaban (Rivaroxaban 20 Mg Tablet) 20 mg PO DAILY [facility] Last Admin: 06/14/25 09:05 Dose: 20 mg Documented By: KYMBERLY Sodium Chloride (0.9 % Sodium Chloride Flush 3 Ml Syringe) 3 ml IVFLUSH QSHIFT [facility] Last Admin: 06/14/25 09:06 Dose: 3 ml Documented By: KYMBERLY Thiamine HCl (Thiamine Hcl 100 Mg Tablet) 100 mg PO DAILY [facility] Last Admin: 06/14/25 09:05 Dose: 100 mg Documented By: KYMBERLY Tiotropium [place] (Tiotropium [place] 2.5 Mcg 1 Puff/2.5 Mcg Mist.Inhal) 2 puff INHALE DAILY [facility] Last Admin: 06/14/25 07:54 Dose: 2 puff Documented By: RAJIV Labs 06/13/25 07:15 06/13/25 07:15 Labs: Laboratory Results - last 24 hr 06/12/25 06/13/25 07:18 07:15 MCV 96.7 MCH 30.7 MCHC 31.8 RDW 14.0 Plt Count 288 MPV 12.0 Immature Gran % (Auto) Cancelled Neut % (Auto) Cancelled Lymph % (Auto) Cancelled [place] % (Auto) Cancelled Eos % (Auto) Cancelled Baso % (Auto) Cancelled Lymph # (Auto) Cancelled [place] # (Auto) Cancelled Eos # (Auto) Cancelled Baso # (Auto) Cancelled Abs Immat Gran (auto) Cancelled Absolute Neuts (auto) Cancelled Absolute Nucleated RBC 0.000 Nucleated RBC % (auto) 0.0 Neutrophils % (Manual) 68 Band Neutrophils % 1 L Lymphocytes % (Manual) 18 L Atypical Lymphs % (Man) 1 Monocytes % (Manual) 7 Metamyelocytes % 3 Myelocytes % 2 Abs Neuts (Manual) 7.2 Lymphocytes # (Manual) 1.9 Atyp Lymphs # (Manual) 0.1 Monocytes # (Manual) 0.7 Metamyelocytes # 0.3 Myelocytes # 0.2 Smudge Cells PRESENT Toxic Vacuolation PRESENT Platelet Estimate NORMAL Large Platelets PRESENT Plt Morphology Comment NOTED RBC Morphology NOTED Polychromasia 1+ (0-2) Basophilic Stippling 1+ (0-2) Macrocytosis 1+ (5-14) Stomatocytes 2+ (15-30) Smear Path Review SEE NOTE Anion Gap 14 Estim Creat Clear Calc 68.9 Estimated GFR > 60 Random Glucose 108 Calcium 9.7 Magnesium 2.2 Total Bilirubin 0.3 AST 49 H ALT 20 Alkaline Phosphatase 117 Total Protein 6.9 Albumin 3.9 Microbiology Microbiology Results: Microbiology 06/09/25 11:14 Blood Culture - Final Blood - Venous No growth after 5 days. 06/09/25 11:12 Blood Culture - Final Blood - Venous No growth after 5 days. Assessment and Plan (1) Alcohol use: Status: Acute (2) Acute exacerbation of CHF (congestive heart failure): Status: Acute (3) Atrial fibrillation with RVR: Status: Acute (4) Acute hypoxic on chronic hypercapnic respiratory failure: Status: Acute (5) Supplemental oxygen dependent: Status: Acute (6) COPD (chronic obstructive pulmonary disease): Status: Acute (7) Pulmonary nodules: Status: Acute Plan Dickson Em, 69-year-old male with history of atrial fibrillation, congestive heart failure, COPD, ETOH abuse, and hypothyroidism, presenting with dyspnea, fatigue, and confusion, admitted with acute multifactorial hypoxic respiratory failure 2/2 acute infective COPD exacerbation and superimposed acute on chronic CHFpEF exacerbation. Multifactorial Acute Hypoxic Respiratory Failure, improved Patient presents with worsening dyspnea, orthopnea, and PND. Chest x-ray suggests possible pulmonary edema. Hypoxia noted with O2 saturation of 92% on 2L, improved to 98% on 6L. Acute on chronic exacerbation of COPD and heart failure likely contributing to respiratory failure. Active tobacco use and history of COPD on nocturnal oxygen further complicate the clinical picture. Likely infective element superimposed. - Continue IV ceftriaxone, change to po tomorrow - Continue doxycycline 100 mg BID PO - Continue prednisone 60 mg OD PO, reduce to 40 - Continue Lasix (furosemide) 40 mg IV OD - Monitor intake and output - Obtain daily weights - Continue albuterol and ipratropium nebulizer treatments Acute on Chronic Heart Failure Exacerbation Assessment: Patient reports orthopnea and PND, consistent with heart failure exacerbation. Chest x-ray suggests possible pulmonary edema. Last echocardiogram on May 09 showed LVEF 68%, no wall motion abnormalities, and moderate dilation of the ascending aorta. Patient's baseline furosemide dose is 40 mg oral once daily. - Continue Lasix (furosemide) 40 mg IV OD - Monitor intake and output - Obtain daily weights - Cardiac telemetry Atrial Fibrillation with Rapid Ventricular Response (RVR) on Rivaroxaban Assessment: Patient presented with palpitations and tachycardia. Initial pulse rate in ER was 175 bpm. Received diltiazem 20 mg IV with improvement in heart rate from 170 to 90-100 bpm, but remained in atrial fibrillation. Also received metoprolol tartrate 50 mg. - Metoprolol 25mg BID PO - PRN IV meoprolol 5mg for RVR - PRN IV diltiazem 5mg for RVR - Continue Rivaroxaban for anticoagulation COPD Exacerbation Assessment: Patient reports increased coughing with production of phlegm, worse when lying flat. History of COPD on nocturnal oxygen. Active tobacco use noted. - Continue IV ceftriaxone - Continue doxycycline 100 mg BID PO - Continue prednisone 60 mg OD PO - Continue albuterol and ipratropium nebulizer treatments - Continue tiotropium EtOH Abuse, no withdrawal Plan; - CIWA score - folic acid - thiamine CHRONIC MEDICAL ISSUES - HLD: Atorvastatin 40 mg OD p.o. - Vitamin-D deficiency: Cholecalciferol 25 mg resume outpatient - Hypothyroidism: Levothyroxine 75 mcg OD p.o. QUALITY METRICS - VTE: Rivaroxaban - CODE STATUS: Full code - DIET: Cardiac DISPOSITION: Evaluation for STR/home with O2 PT recommend outpatient pulm rehab, dc tomorrow Total time managing care of this patient today: 35 minutes. Quality Stroke Does the patient have a stroke diagnosis?: No VTE Prior VTE?: No VTE Risk Level:: Medical - moderate - high VTE Device Contraindication: Treatment Not Indicated VTE Drug Contraindication: N/A - Med Ordered
[2025-06-14] MEDS: guaiFENesin 200 MG/10 ML 10 ML LIQUID PO (21:32)
[2025-06-15] VITALS (11 sets, daily range): BP systolic 102–129; BP diastolic 55–65; PULSE 78–93; RESP 16–20; TEMP 36.1–37; O2SAT 93–97
[2025-06-15] MEDS: Albuterol Sulfate 90 MCG 8 GM INHALER 2 PUFF INHALE (00:45)
[2025-06-15] MEDS: 0.9 % Sodium Chloride Flush 3 ML SYRINGE IVFLUSH ×3 (08:00→20:03)
[2025-06-15] MEDS: Albuterol/Iprat 2.5/0.5MG 3 ML AMPUL.NEB INHALE ×4 (08:01→19:47)
[2025-06-15] MEDS: Tiotropium Bromide 2.5 mcg 1 PUFF/2.5 MCG MIST.INHAL 2 PUFF INHALE (08:01)
[2025-06-15] MEDS: Fluticasone/Vilanterol 200/25 BLST.W.DEV 1 PUFF INHALE (08:01)
--- NOTE | 2025-06-15 08:32 | PC.RT ---
pt has been refusing to wear bipap for several days. he doesnt wear at home.
[2025-06-15] MEDS: Furosemide 40 MG/4 ML VIAL IVPUSH (09:24)
[2025-06-15] MEDS: Potassium Chloride ER 20 MEQ TAB.ER.PRT PO ×2 (09:24→20:00)
--- NOTE | 2025-06-15 16:52 | HO.PM.IMPN ---
Subjective Subjective Date of Service: 06/15/25 Interval History: better, less sob Physical Exam Exam: Exam: General: AO X 3, no acute distress Resp: CTA bilateral CVS: S1,S2,RRR GI: +BS, NT, no distention Skin: No rash Neuro: motor grossly intact Psych: appropriate affect Vital Signs: Vital Signs: Last Vital Signs Temp 97.3 F 06/15/25 15:30 Pulse 93 06/15/25 15:52 Resp 18 06/15/25 15:52 BP 116/65 06/15/25 15:30 Pulse Ox 94 06/15/25 15:30 O2 Del Method Nasal Cannula 06/15/25 15:30 O2 Flow Rate 2 06/15/25 15:30 FiO2 24 06/10/25 09:00 BMI result Body Mass Index 28.3 Objective Data Active Medications Acetaminophen (Acetaminophen 325 Mg Tablet) 650 mg PO Q6H PRN PRN Reason: Pain, Mild 1-3,fever,headache Last Admin: 06/10/25 21:27 Dose: 650 mg Documented By: FACUNDO Albuterol Sulfate (Albuterol Sulfate (0.083%) 2.5 Mg/3 Ml Vial.Neb) 2.5 mg INHALE Q2H PRN PRN Reason: Shortness of Breath/Wheezing Albuterol Sulfate (Albuterol Sulfate 90 Mcg 8 Gm Inhaler) 2 puff INHALE Q4H PRN PRN Reason: breathing Last Admin: 06/15/25 00:45 Dose: 2 puff Documented By: LEDY Albuterol/Ipratropium (Albuterol/Iprat 2.5/0.5mg 3 Ml Ampul.Neb) 3 ml INHALE RQ4H WHILE AWAKE [facility] Last Admin: 06/15/25 15:50 Dose: 3 ml Documented By: RADHA Atorvastatin Calcium (Atorvastatin Calcium 40 Mg Tablet) 40 mg PO DAILY [facility] Last Admin: 06/15/25 09:24 Dose: 40 mg Documented By: AASHISH Calcium Carbonate (Calcium Carbonate 750 Mg Tab.Chew) 750 mg PO Q4H PRN PRN Reason: Heartburn Ceftriaxone Sodium (Ceftriaxone Sodium 1 Gm Vial) 1 gm IVPUSH Q24H [facility] Last Admin: 06/15/25 10:26 Dose: 1 gm Documented By: AASHISH Doxycycline Monohydrate (Doxycycline Monohydrate 100 Mg Capsule) 100 mg PO Q12H [facility] Last Admin: 06/15/25 12:37 Dose: 100 mg Documented By: AASHISH Fluticasone/Vilanterol (Fluticasone/Vilanterol 200/25 Blst.W.Dev) 1 puff INHALE DAILY [facility] Last Admin: 06/15/25 08:01 Dose: 1 puff Documented By: CHRISTOPHER Folic Acid (Folic Acid 1 Mg Tablet) 1 mg PO DAILY [facility] Last Admin: 06/15/25 09:24 Dose: 1 mg Documented By: AASHISH Furosemide (Furosemide 40 Mg/4 Ml Vial) 40 mg IVPUSH DAILY [facility]; Protocol Last Admin: 06/15/25 09:24 Dose: 40 mg Documented By: AASHISH Guaifenesin (Guaifenesin 200 Mg/10 Ml 10 Ml Liquid) 10 ml PO Q4H PRN PRN Reason: Cough Last Admin: 06/14/25 21:32 Dose: 10 ml Documented By: LEDY Levothyroxine Sodium (Levothyroxine Sodium 75 Mcg Tablet) 75 mcg PO DAILY [facility] Last Admin: 06/15/25 09:24 Dose: 75 mcg Documented By: AASHISH Magnesium Hydroxide (Milk Of Magnesia 30 Ml Oral.Susp) 30 ml PO DAILY PRN PRN Reason: Constipation Last Admin: 06/14/25 09:23 Dose: 30 ml Documented By: KYMBERLY Potassium Chloride (Potassium Chloride Er 20 Meq Tab.Er.Prt) 20 meq PO BID [facility] Last Admin: 06/15/25 09:24 Dose: 20 meq Documented By: AASHISH Rivaroxaban (Rivaroxaban 20 Mg Tablet) 20 mg PO DAILY [facility] Last Admin: 06/15/25 09:24 Dose: 20 mg Documented By: AASHISH Sodium Chloride (0.9 % Sodium Chloride Flush 3 Ml Syringe) 3 ml IVFLUSH QSHIFT [facility] Last Admin: 06/15/25 08:00 Dose: 3 ml Documented By: AASHISH Thiamine HCl (Thiamine Hcl 100 Mg Tablet) 100 mg PO DAILY [facility] Last Admin: 06/15/25 09:24 Dose: 100 mg Documented By: AASHISH Tiotropium [place] (Tiotropium [place] 2.5 Mcg 1 Puff/2.5 Mcg Mist.Inhal) 2 puff INHALE DAILY [facility] Last Admin: 06/15/25 08:01 Dose: 2 puff Documented By: CHRISTOPHER Labs 06/13/25 07:15 06/13/25 07:15 Labs: Laboratory Results - last 24 hr 06/12/25 06/13/25 07:18 07:15 MCV 96.7 MCH 30.7 MCHC 31.8 RDW 14.0 Plt Count 288 MPV 12.0 Immature Gran % (Auto) Cancelled Neut % (Auto) Cancelled Lymph % (Auto) Cancelled [place] % (Auto) Cancelled Eos % (Auto) Cancelled Baso % (Auto) Cancelled Lymph # (Auto) Cancelled [place] # (Auto) Cancelled Eos # (Auto) Cancelled Baso # (Auto) Cancelled Abs Immat Gran (auto) Cancelled Absolute Neuts (auto) Cancelled Absolute Nucleated RBC 0.000 Nucleated RBC % (auto) 0.0 Neutrophils % (Manual) 68 Band Neutrophils % 1 L Lymphocytes % (Manual) 18 L Atypical Lymphs % (Man) 1 Monocytes % (Manual) 7 Metamyelocytes % 3 Myelocytes % 2 Abs Neuts (Manual) 7.2 Lymphocytes # (Manual) 1.9 Atyp Lymphs # (Manual) 0.1 Monocytes # (Manual) 0.7 Metamyelocytes # 0.3 Myelocytes # 0.2 Smudge Cells PRESENT Toxic Vacuolation PRESENT Platelet Estimate NORMAL Large Platelets PRESENT Plt Morphology Comment NOTED RBC Morphology NOTED Polychromasia 1+ (0-2) Basophilic Stippling 1+ (0-2) Macrocytosis 1+ (5-14) Stomatocytes 2+ (15-30) Smear Path Review SEE NOTE Anion Gap 14 Estim Creat Clear Calc 68.9 Estimated GFR > 60 Random Glucose 108 Calcium 9.7 Magnesium 2.2 Total Bilirubin 0.3 AST 49 H ALT 20 Alkaline Phosphatase 117 Total Protein 6.9 Albumin 3.9 Microbiology Microbiology Results: Microbiology 06/09/25 11:14 Blood Culture - Final Blood - Venous No growth after 5 days. 06/09/25 11:12 Blood Culture - Final Blood - Venous No growth after 5 days. Assessment and Plan (1) Alcohol use: Status: Acute (2) Acute exacerbation of CHF (congestive heart failure): Status: Acute (3) Atrial fibrillation with RVR: Status: Acute (4) Acute hypoxic on chronic hypercapnic respiratory failure: Status: Acute (5) Supplemental oxygen dependent: Status: Acute (6) COPD (chronic obstructive pulmonary disease): Status: Acute (7) Pulmonary nodules: Status: Acute Plan Dickson Em, 69-year-old male with history of atrial fibrillation, congestive heart failure, COPD, ETOH abuse, and hypothyroidism, presenting with dyspnea, fatigue, and confusion, admitted with acute multifactorial hypoxic respiratory failure 2/2 acute infective COPD exacerbation and superimposed acute on chronic CHFpEF exacerbation. Multifactorial Acute Hypoxic Respiratory Failure, improved Patient presents with worsening dyspnea, orthopnea, and PND. Chest x-ray suggests possible pulmonary edema. Hypoxia noted with O2 saturation of 92% on 2L, improved to 98% on 6L. Acute on chronic exacerbation of COPD and heart failure likely contributing to respiratory failure. Active tobacco use and history of COPD on nocturnal oxygen further complicate the clinical picture. Likely infective element superimposed. - Continue IV ceftriaxone, change to po today - Continue doxycycline 100 mg BID PO - Continue prednisone 60 mg OD PO, reduce to 40 - Continue Lasix (furosemide) 40 mg IV to PO today - Monitor intake and output - Obtain daily weights - Continue albuterol and ipratropium nebulizer treatments Acute on Chronic Heart Failure Exacerbation Assessment: Patient reports orthopnea and PND, consistent with heart failure exacerbation. Chest x-ray suggests possible pulmonary edema. Last echocardiogram on May 09 showed LVEF 68%, no wall motion abnormalities, and moderate dilation of the ascending aorta. Patient's baseline furosemide dose is 40 mg oral once daily. - Continue Lasix (furosemide) 40 but change to PO - Monitor intake and output - Obtain daily weights - Cardiac telemetry Atrial Fibrillation with Rapid Ventricular Response (RVR) on Rivaroxaban Assessment: Patient presented with palpitations and tachycardia. Initial pulse rate in ER was 175 bpm. Received diltiazem 20 mg IV with improvement in heart rate from 170 to 90-100 bpm, but remained in atrial fibrillation. Also received metoprolol tartrate 50 mg. - Metoprolol 25mg BID PO - PRN IV meoprolol 5mg for RVR - PRN IV diltiazem 5mg for RVR - Continue Rivaroxaban for anticoagulation COPD Exacerbation Assessment: Patient reports increased coughing with production of phlegm, worse when lying flat. History of COPD on nocturnal oxygen. Active tobacco use noted. - Continue IV ceftriaxone - Continue doxycycline 100 mg BID PO - Continue prednisone 60 mg OD PO - Continue albuterol and ipratropium nebulizer treatments - Continue tiotropium EtOH Abuse, no withdrawal Plan; - CIWA score - folic acid - thiamine CHRONIC MEDICAL ISSUES - HLD: Atorvastatin 40 mg OD p.o. - Vitamin-D deficiency: Cholecalciferol 25 mg resume outpatient - Hypothyroidism: Levothyroxine 75 mcg OD p.o. QUALITY METRICS - VTE: Rivaroxaban - CODE STATUS: Full code - DIET: Cardiac DISPOSITION: Evaluation for STR/home with O2 PT recommend outpatient pulm rehab, dc tomorrow Total time managing care of this patient today: 35 minutes. Quality Stroke Does the patient have a stroke diagnosis?: No VTE Prior VTE?: No VTE Risk Level:: Medical - moderate - high VTE Device Contraindication: Treatment Not Indicated VTE Drug Contraindication: N/A - Med Ordered
[2025-06-16 03:18] VITALS: BP 111/58; PULSE 71; RESP 17; TEMP 36.6; O2SAT 95
[2025-06-16 06:45] LABS: Hematocrit 38.5 % (42.0-52.0); Hemoglobin 12.4 g/dl (14.0-18.0); Mean Corpuscular HGB Conc 32.2 g/dl (31.0-36.0); Mean Corpuscular Hemoglobin 30.5 pg (27.0-33.0); Mean Corpuscular Volume 94.8 fL (80.0-98.0); NRBC Abs Auto 0.000 X10*3/uL (0.0-0.012); NRBC Pct Auto 0.0 /100WBC (0.0-0.2); Platelet Count 222 X10*3/uL (160-400); Red Blood Count 4.06 X10*6/uL (4.60-5.80); White Blood Count 8.7 X10*3/uL (4.8-10.8)
[2025-06-16 07:06] LABS: Alanine Aminotransferase 22 U/L (0-40); Albumin Level 3.4 g/dL (3.5-5.0); Alkaline Phosphatase 108 U/L (39-117); Anion Gap 12 (12-20); Aspartate Amino Transferase 31 U/L (5-37); Blood Urea Nitrogen 33 mg/dL (9-16); Calcium 9.0 mg/dL (8.4-10.2); Carbon Dioxide 32 mmol/L (22-29); Chloride 101 mmol/L (96-108); Creatinine Clr Calc Pharmacy 77.9; Estimated Glomerular Filt Rate > 60; Potassium 4.7 mmol/L (3.3-5.1); Sodium 140 mmol/L (135-145); Total Protein 6.0 g/dL (6.5-8.0)
[2025-06-16 07:24] VITALS: BP 106/57; PULSE 76; RESP 18; TEMP 36.4; O2SAT 98
[2025-06-16] MEDS: 0.9 % Sodium Chloride Flush 3 ML SYRINGE IVFLUSH (07:49)
[2025-06-16] MEDS: Lidocaine 4 % Patch ADH..PATCH 1 PATCH TRANSDERMA (07:49)
[2025-06-16] MEDS: Potassium Chloride ER 20 MEQ TAB.ER.PRT PO (07:50)
[2025-06-16 07:52] VITALS: BP 106/57
[2025-06-16] MEDS: Fluticasone/Vilanterol 200/25 BLST.W.DEV 1 PUFF INHALE (07:54)
[2025-06-16] MEDS: Tiotropium Bromide 2.5 mcg 1 PUFF/2.5 MCG MIST.INHAL 2 PUFF INHALE (07:54)
[2025-06-16] MEDS: Albuterol/Iprat 2.5/0.5MG 3 ML AMPUL.NEB INHALE ×2 (08:21→11:38)
[2025-06-16 08:27] VITALS: PULSE 78; RESP 16
[2025-06-16 11:43] VITALS: PULSE 78; RESP 16
[2025-06-16 12:00] VITALS: BP 111/56; PULSE 86; RESP 20; TEMP 36.4; O2SAT 100
--- NOTE | 2025-06-16 13:11 | PM.DS ---
DS: Providers Provider Date of Service: 06/16/25 Date of admission: 06/09/25 18:00 Date of discharge: 06/16/25 Primary care physician: Artie Lentz NP DS: Diagnosis Discharge Diagnosis (1) Alcohol use: Status: Acute (2) Acute exacerbation of CHF (congestive heart failure): Status: Acute (3) Atrial fibrillation with RVR: Status: Acute (4) Acute hypoxic on chronic hypercapnic respiratory failure: Status: Acute (5) Supplemental oxygen dependent: Status: Acute (6) COPD (chronic obstructive pulmonary disease): Status: Acute (7) Pulmonary nodules: Status: Acute DS: Summary Hospital Course Hospital Course: Chief Complaint: Shortness of breaths and fatigue History of Present Illness Dickson Em, a 69-year-old male with a history of atrial fibrillation, congestive heart failure, COPD, alcohol abuse, and hypothyroidism, presents with dyspnea and fatigue. The patient reports feeling tired and experiencing a lot of coughing, which worsens when lying flat. He denies chest pain, chest pressure, or fast heartbeats. The patient mentions bringing up a lot of phlegm but denies recent fevers or chills. Mr. Em's sister notes increased confusion. The patient has been experiencing progressive worsening of dyspnea, palpitations, dizziness, fatigue, orthopnea, and paroxysmal nocturnal dyspnea. He has a history of COPD requiring nocturnal oxygen. The patient was recently admitted for acute CHF exacerbation and acute on chronic exacerbation of COPD. Regarding medication adherence, Mr. Em confirms taking Lasix 20 mg once daily at home. He is noted to be an active tobacco user. The patient is described as a poor historian, which may impact the accuracy and completeness of the reported symptoms and history. Hospital course: Dickson Em, 69-year-old male with history of atrial fibrillation, congestive heart failure, COPD, ETOH abuse, and hypothyroidism, presenting with dyspnea, fatigue, and confusion, admitted with acute multifactorial hypoxic respiratory failure 2/2 acute infective COPD exacerbation and superimposed acute on chronic CHFpEF exacerbation. Multifactorial Acute Hypoxic Respiratory Failure, improved Patient presents with worsening dyspnea, orthopnea, and PND. Chest x-ray suggests possible pulmonary edema. Hypoxia noted with O2 saturation of 92% on 2L, improved to 98% on 6L. Acute on chronic exacerbation of COPD and heart failure likely contributing to respiratory failure. Active tobacco use and history of COPD on nocturnal oxygen further complicate the clinical picture. Likely infective element superimposed. He was treated with Ceftriaxone and Doxycyline and has completed 7 days of treatment. Additionally was on steroid for copd exacerbation and IV Lasix for heart failure. Will transition to oral Lasix, oral steroid chacorta and to continue Home O2 as before Acute on Chronic Heart Failure Exacerbation, treated with IV Lasix and now on PO Atrial Fibrillation with Rapid Ventricular Response (RVR) on Rivaroxaban had RVR relaed acute respiratory distresss, HR is now control and will resume home regimen, including Xarelto for stroke prevention COPD Exacerbation--resume home meds, Prednisone chacorta EtOH Abuse, no withdrawal Plan; - CIWA score - folic acid - thiamine CHRONIC MEDICAL ISSUES - HLD: continue Atorvastatin - Vitamin-D deficiency: continue Cholecalciferol 25 mg resume outpatient - Hypothyroidism: continue Levothyroxine Time Attestation Discharge Coordination Time (in mins): 45 Quality: Safe Use of Opioids Does Pt have an Active Cancer Diagnosis on the Problem List?: No Quality: Stroke Does the patient have a stroke diagnosis?: No Physical Exam Vital Signs: Vital Signs: Last Vital Signs Temp 97.5 F 06/16/25 12:00 Pulse 86 06/16/25 12:00 Resp 20 06/16/25 12:00 BP 111/56 L 06/16/25 12:00 Pulse Ox 100 06/16/25 12:00 O2 Del Method Nasal Cannula 06/16/25 12:00 O2 Flow Rate 2 06/16/25 07:24 FiO2 24 06/10/25 09:00 BMI result Body Mass Index 28.3 DS: Data Data Completed and Pending Labs on day of discharge: Laboratory Results - last 24 hr 06/16/25 06:08 WBC 8.7 RBC 4.06 L Hgb 12.4 L Hct 38.5 L MCV 94.8 MCH 30.5 MCHC 32.2 RDW 14.4 Plt Count 222 MPV 12.4 Absolute Nucleated RBC 0.000 Nucleated RBC % (auto) 0.0 Sodium 140 Potassium 4.7 D Chloride 101 Carbon Dioxide 32 H Anion Gap 12 BUN 33 H Creatinine 0.92 Estim Creat Clear Calc 77.9 Estimated GFR > 60 Random Glucose 98 Calcium 9.0 D Total Bilirubin 0.2 AST 31 ALT 22 Alkaline Phosphatase 108 Total Protein 6.0 L Albumin 3.4 L Discharge Plan Discharge Anticipated Discharge Date/Time: 06/16/25 13:47 Patient Disposition: Home Health Service Discharge Diagnosis: Acute and chronic hypoxic respiratory failure, copd and heart failure Referrals: Artie Lentz MANAGER ADMINISTRATION [Primary Care Provider, Internal Medicine] - 1 Week Discharge Medications: New prednisone 10 mg tablet See Taper PO DIRECTED Qty: 12 0RF Taper: Prednisone 30 mg daily for 2 Days and 0 Hour 20 mg daily for 2 Days and 0 Hour 1 mg daily for 2 Days and 0 Hour Rx Instructions: see taper instructions Continued albuterol sulfate 2.5 mg /3 mL (0.083 %) Solution For Nebulization 2.5 mg inhalation Q6H PRN (Reason: breathing) levothyroxine 88 mcg Tablet 88 mcg PO DAILY@0600 albuterol sulfate 90 mcg/actuation Hfa Aerosol Inhaler 2 puff INHALATION Q4H PRN (Reason: breathing) Xarelto 20 mg tablet 20 mg PO DAILY@1700 metoprolol tartrate 50 mg Tablet 50 mg PO BID Qty: 60 0RF Protocol: Hold for SBP/HR < HOLD for SBP < : 90 HOLD for HR < : 60 theophylline 400 mg tablet extended release 24 hr 400 mg PO DAILY Qty: 30 6RF atorvastatin 40 mg tablet 20 mg PO DAILY cholecalciferol (vitamin D3) 25 mcg (1,000 unit) tablet 25 mcg PO DAILY fluticasone propion-salmeterol 250-50 mcg/dose blister with device 1 inh inhalation BID tiotropium bromide 2.5 mcg/actuation mist 2 puff inhalation DAILY furosemide 40 mg tablet 40 mg PO DAILY Qty: 30 6RF Discharge Orders: Discharge Order (Routine); Ordered 06/16/25 Ordered By: Socrates Napier Diet: Advance to usual diet Activity on Discharge: As tolerated Stand Alone Forms: Patient Portal Discharge page Print Language: Choose Not To Answer Care Plan Goals: recovery from acute hypoxic respiratory failure due to pneumonia, copd and heart failure Health Concerns: same as above Plan of Treatment: take Prednisone as directed continue your inhalers and oxygen as before stop smoking follow up with your doctor in a week Assessment: see above
--- NOTE | 2025-06-16 13:56 | P.F2F_ITS ---
Service Date Service Date: 06/16/25 Encounter Date of encounter: 06/16/25 Reasons for Services Signs and symptoms assessed: shortness of breath with minialm effort Reason for care home: CV/CP assess and/or care, medication management and teach disease management Homebound: Leaving the home is medically contraindicated at this time without the asist of a device and/or another person due th the listed conditions above and below. Reason homebound: shortness of breath with minimal effort Homebound supporting statement: homebound due to shortness of breath from heart failure, pneumonia, copd exacerbation and needing contant oxygen use, and therefore needs the assistance of another person Certification: Based on the above findings, I certify that this patient is confined to the home and needs intermittent care home care, physical therapy and/or speech therapy, or continues to need occupational therapy. The patient is under my care, and I have initiated the establishment of the plan of care. The patient will be followed by a physician who will periodically review the plan of care. Time Spent With Patient Time: Total time managing care of this patient today ____ minutes.
--- NOTE | 2025-06-16 14:07 | MHC.CM.PN ---
Pt has been medically cleared to [place], he will go home via family transport and have home care services from [facility].
[2025-06-16] MEDS: Albuterol Sulfate 90 MCG 8 GM INHALER 2 PUFF INHALE (14:46)
--- NOTE | 2025-06-19 20:30 | P.CDIM_ITS ---
PROVIDER RESPONSE TEXT: To clarify, the appropriate diagnosis supported by the clinical indicators: Paroxysmal atrial fibrillation QUERY TEXT: PHYSICIAN'S DOCUMENTATION REQUEST Date of Query: 06/15/2025 09:07 AM EDT Patient Name: Dickson Em Admit Date: 06/09/2025 Dear Socrates Napier MD, A review of the medical record indicates additional documentation may be needed. Please review below and update the documentation accordingly. Clinical Indicators: Progress notes: Atrial fibrillation with rapid ventricular response (RVR) on Rivaroxaban Patient presented with palpitations and tachycardia. Initial pulse rate in Ed was 175 bpm. IV Diltiazem 20 mg IV with improvement in HR but remained in atrial fibrillation. Metoprolol If possible, please provide further specificity regarding atrial fibrillation, such as, if known: Paroxysmal atrial fibrillation Persistent atrial fibrillation Long lasting persistent atrial fibrillation Chronic or Permanent atrial fibrillation Other (explain) Clinically unable to determine (explain) Thank you, Therese Watson, CCS, CDIS Use of terms such as suspected, likely, concern for, or probable (associated with a specific diagnosis that is being evaluated, monitored, or treated as if it exists) are acceptable and can be coded in the inpatient setting, when documented at the time of discharge. Please use your independent medical judgment in providing your response. THIS QUERY IS PART OF THE PERMANENT MEDICAL RECORD
== END 2025-06-16 15:07 | disposition home health service (06) | DRG 308 ==
LOC: HO.ED 16:02 → HO.EDOVER 18:12 → HO.IMC 06-10 01:09 → HO.ICU 06-10 04:20 → HO.IMC 06-10 16:42
PROVIDERS: Internal Medicine; Internal Medicine Pulmonary Disease; Admitting Provider Hospitalist; Emergency Provider Emergency Medicine; PCP Nurse Practitioner Family; Referring Provider Registered Nurse Community Health; Visit Provider Internal Medicine
DX: I48.0 Paroxysmal atrial fibrillation (principal); I50.33 Acute on chronic diastolic (congestive) heart failure; J96.21 Acute and chronic respiratory failure with hypoxia; J96.22 Acute and chronic respiratory failure with hypercapnia; N17.9 Acute kidney failure, unspecified; F10.10 Alcohol abuse, uncomplicated; E78.5 Hyperlipidemia, unspecified; E03.9 Hypothyroidism, unspecified; E55.9 Vitamin D deficiency, unspecified; Z99.81 Dependence on supplemental oxygen; F17.210 Nicotine dependence, cigarettes, uncomplicated; Z71.6 Tobacco abuse counseling; Z79.01 Long term (current) use of anticoagulants; Z79.51 Long term (current) use of inhaled steroids; Z79.890 Hormone replacement therapy; Z79.899 Other long term (current) drug therapy
CPT/HCPCS: 36415; 36600; 71045; 80048; 80053; 80076; 80307; 81003; 82140; 82803; 83605; 83735; 83880; 84100; 84443; 84484; 85007; 85025; 85027; 86140; 87040; 93005; 94640; 94660; 97163; 97530; 99285; J0696; J1120; J1163; J1171; J1271; J1938; J2919; J3480

== ENCOUNTER → 2025-06-09 11:06 | Outpatient (BNV) | payer OTHER, SELFPAY | PROVIDERS: Emergency Provider Emergency Medicine; PCP Nurse Practitioner Family; Visit Provider Radiology Diagnostic Radiology | DX: R06.02 Shortness of breath (principal) | CPT/HCPCS: 71045 ==

== ENCOUNTER → 2025-06-09 11:06 | Outpatient (BNV) | payer OTHER, SELFPAY | PROVIDERS: Emergency Provider Emergency Medicine; PCP Nurse Practitioner Family; Visit Provider Internal Medicine Cardiovascular Disease | DX: I49.1 Atrial premature depolarization (principal); R00.0 Tachycardia, unspecified | CPT/HCPCS: 93010 ==

== ENCOUNTER 2025-06-09 18:00 | Outpatient (BNV) | payer OTHER, SELFPAY | END 2025-06-10 03:07 | PROVIDERS: Admitting Provider Hospitalist; Emergency Provider Emergency Medicine; PCP Nurse Practitioner Family; Visit Provider Radiology Vascular & Interventional Radiology | DX: R06.02 Shortness of breath (principal) | CPT/HCPCS: 71045 ==

== ENCOUNTER → 2025-06-09 18:00 | Outpatient (BNV) | payer OTHER, SELFPAY | PROVIDERS: Admitting Provider Hospitalist; Emergency Provider Emergency Medicine; PCP Nurse Practitioner Family; Visit Provider Registered Nurse Community Health | DX: J44.9 Chronic obstructive pulmonary disease, unspecified (principal); I50.33 Acute on chronic diastolic (congestive) heart failure; J96.01 Acute respiratory failure with hypoxia; J96.12 Chronic respiratory failure with hypercapnia; N17.9 Acute kidney failure, unspecified | CPT/HCPCS: 99291 ==

== ENCOUNTER → 2025-06-09 18:00 | Outpatient (BNV) | payer OTHER, SELFPAY | PROVIDERS: Admitting Provider Hospitalist; Emergency Provider Emergency Medicine; PCP Nurse Practitioner Family; Visit Provider Hospitalist | DX: I48.91 Unspecified atrial fibrillation (principal); F10.90 Alcohol use, unspecified, uncomplicated; I77.810 Thoracic aortic ectasia; E06.3 Autoimmune thyroiditis; J96.21 Acute and chronic respiratory failure with hypoxia; J44.1 Chronic obstructive pulmonary disease with (acute) exacerbation; I50.33 Acute on chronic diastolic (congestive) heart failure; G47.34 Idiopathic sleep related nonobstructive alveolar hypoventilation | CPT/HCPCS: 99222; 99499 ==

== ENCOUNTER 2025-09-15 08:26 | Emergency (ER) | payer OTHER, SELFPAY ==
--- NOTE | ~2025-09-15 | CT_ITS ---
EXAMINATION: CT ANGIOGRAM CHEST CLINICAL INFORMATION: Shortness of breath, concern for PE. 70-year-old male. COMPARISON: [facility] 05/08/2025. LDS CT 03/08/2025. TECHNIQUE: Multiple axial images were obtained through the chest after the administration of 65 mL of Omnipaque 350 intravenous contrast. Extensive vascular post-processing including two-dimensional and three-dimensional reformatted images were created and reviewed on an independent workstation. This CT examination was performed using dose optimization techniques as appropriate, variously including the following: *Automated exposure control *Adjustment of mA and/or kV according to patient size (this includes techniques or standardized protocols for targeted exams where dose is matched to indication/reason for exam; i.e. extremities or head) *Use of iterative reconstruction technique FINDINGS: VASCULAR: Study quality is diagnostic. There is no filling defects in the pulmonary arteries to suggest PE. No embolus is identified. The main pulmonary artery is normal in caliber. The ascending aorta is mildly aneurysmal measuring 4.3 cm in maximal diameter. The aortic arch and remainder of the aorta are normal in caliber. There is mild atheromatous calcification present. No acute aortic syndrome. Normal branching pattern of the great vessels, which are patent. Heart size is top normal. No pericardial effusion. There are moderate to heavy coronary calcifications. LUNGS: There is mild to moderate centrilobular emphysema. Minimal subsegmental atelectasis in the right middle lobe. Lungs otherwise grossly clear without focal consolidation or abnormal opacities. Mild to moderate thickening of the small airways is noted, consistent with chronic bronchitis. The central airways are patent. No suspicious pulmonary nodules are evident. There are a few scattered micronodules measuring up to 4 mm as described on the prior exams. These are unchanged from prior exams. No new nodule. No pleural effusion or pneumothorax. PLEURA: There is no pleural effusion. No pleural mass or thickening. MEDIASTINUM: The partially imaged thyroid is normal. There is no adenopathy or mass within the mediastinum. The esophagus is unremarkable. The central airways are normal. AXILLA/CHEST WALL: There is no lymphadenopathy or mass. There is moderate bilateral male gynecomastia left greater than right. UPPER ABDOMEN: There is diffuse fatty infiltration of the liver. There is no suspicious liver lesion. A subtle density in the dependent gallbladder is likely a small gallstone. Normal-appearing kidneys and adrenal glands. No pancreatic abnormality. Imaged bowel structures grossly normal. OSSEOUS STRUCTURES: No suspicious lytic or blastic bone lesions. There are mild to moderate degenerative changes throughout the spine. Arthritic spurring of the sternal manubrial joint. CT/CT angio chest PE protocol IMPRESSION: 1. There is no evidence of pulmonary embolism. There is no acute aortic syndrome. There is mild aneurysmal dilatation of the ascending aorta at 4.3 cm. 2. Mild to moderate centrilobular emphysema. No active pulmonary disease or pneumonia evident. 3. Diffuse thickening of the small airways present, in keeping with chronic bronchitis. 4. There are a few scattered stable micronodules measuring up to 4 mm. 5. Diffuse fatty infiltration of the liver. 5. There are additional ancillary findings as discussed in the body of the report. Electronically signed by: Marty Pelletier MD 09/15/2025 10:58 AM [facility] HERNANDE[facility]
--- NOTE | ~2025-09-15 | US_ITS ---
EXAMINATION: US TRIPLEX UPPER EXTREMITY, LEFT CLINICAL INFORMATION: Significant swelling to the hand COMPARISON: None available. TECHNIQUE: Color-flow triplex imaging with spectral analysis and compression Doppler was performed on the left upper extremity. FINDINGS: The left internal jugular, subclavian, and axillary veins are patent and free of thrombus. The imaged segment of the left brachiocephalic vein is patent. Spectral doppler waveforms are normal. The brachial, basilic, cephalic, radial, and ulnar veins are patent and compressible. US/US venous duplex UE LT IMPRESSION: No evidence of deep venous thrombosis involving the left upper extremity. Electronically signed by: Glenn Weaver MD 09/15/2025 10:52 AM EST
[2025-09-15 08:30] VITALS: BP 123/60; PULSE 92; RESP 24; TEMP 36.1; O2SAT 95; BMI 28.1
--- NOTE | 2025-09-15 08:42 | ECG_ITS ---
Test Reason : SOB Blood Pressure : */* mmHG Vent. Rate : 92 BPM Atrial Rate : 92 BPM P-R Int : 146 ms QRS Dur : 74 ms QT Int : 366 ms P-R-T Axes : 69 78 36 degrees QTcB Int : 452 ms Poor data quality Sinus rhythm with Premature atrial complexes Otherwise normal ECG When compared with ECG of 09-Jun-2025 12:59, No significant change was found Referred By: Generic ED Physician Electronically Signed By: JULIETTE SAENZ MD
--- NOTE | 2025-09-15 08:46 | ED_ITS ---
HPI - General Adult General Chief complaint: General Medical Stated complaint: l hand swelling diff breathing copd Time Seen by Provider: 09/15/25 08:46 Source: patient Mode of arrival: ambulatory Limitations: no limitations History of Present Illness ED Provider: Elizabeth Wiley PA-C HPI narrative: Patient is a 70 year old assigned male at with a history of atrial fib on xarelto, CHF, COPD on oxygen via nasal cannula at base line, alcohol abuse / use, and hypothyroidism presenting to the emergency department today with increased shortness of breath and significant left hand swelling. Patient states that over the last 4 days he has had worsening shortness of breath with significant left hand swelling. Patient states that he is unsure why his hand is swollen. Patient states that he has been wearing his oxygen as directed and taking his medication as prescribed. Patient states that he continues to smoke tobacco. Patient denies any other complaints at this time. Onset (ago): day(s) () Relieving factors: none Exacerbating factors: none Associated symptoms: shortness of breath Treatments prior to arrival: none Related Data Home Medications ?Medication ?Instructions ?Recorded ?Confirmed atorvastatin 40 mg tablet 20 mg PO DAILY 10/18/2401/28 cholecalciferol (vitamin D3) 25 25 mcg PO DAILY 06/09/25 mcg (1,000 unit) tablet fluticasone 250 mcg-salmeterol 50 1 inh inhalation BID 10/18/24 06/09/25 mcg/dose blistr powdr for inhalation tiotropium bromide 2.5 2 puff inhalation DAILY 10/0606/09/25 mcg/actuation mist for inhalation albuterol sulfate 2.5 mg/3 mL 2.5 mg inhalation Q6H ID N breathing 05/08/25 06/09/25 (0.083 %) solution for nebulization albuterol sulfate 90 mcg/actuation 2 puff inhalation Q 4H PRN breathing 05/08/25 06/09/25 aerosol inhaler levothyroxine 88 mcg tablet 88 mcg PO DAILY@0600 05/0806/09/25 rivaroxaban 20 mg tablet (Xarelto) 20 mg PO DAILY@1700 05/08/25 06/09/25 Previous Rx's ?Medication ?Instructions ?Recorded furosemide 40 mg tablet 40 mg PO DAILY #30 tabs 12/04 metoprolol tartrate 50 mg tablet 50 mg PO BID #60 tabs 05/16/25 prednisone 10 mg tablet See Taper PO DIRECTED #12 tabs 06/16/25 theophylline 400 mg 400 mg PO DAILY #30 tabs 01/28 tablet,extended release 24 hr azithromycin 250 mg tablet See Rx Instructions PO .COM PLEX #6 09/15/25 tabs prednisone 20 mg tablet 40 mg (2 x 20 mg) PO DAILY C OPD 09/15/25 exacerbation 5 days #10 tabs Allergies Allergy/AdvReac Type Severity Reaction Status Date / Time hydrochlorothiazide AdvReac Severe Rash Verified 09/15/25 08:33 Review of Systems 2 Constitutional: Constitutional: Reports as per HPI Eyes: Eyes: Reports as per HPI ENT: Reports as per HPI Cardiovascular: Cardiovascular: Reports as per HPI Respiratory: Respiratory: Reports as per HPI Gastrointestinal: Gastrointestinal: Reports as per HPI Genitourinary: Genitourinary: Reports as per HPI Musculoskeletal: Musculoskeletal: Reports as per HPI Integumentary/Breasts: Skin/Breast: Reports as per HPI Neurologic: Reports as per HPI Psychiatric: Psychiatric: Reports as per HPI Endocrine: Endocrine: Reports as per HPI Hematologic/Lymphatic: Hematologic/Lymphatic: Reports as per HPI Allergic/Immunologic: Allergic/Immunologic: Reports as per HPI PMF Past Medical History Attestation statement: The following information was validated with the patient. Source: old records reviewed and nursing notes reviewed Medical History Aortic root dilation COPD (chronic obstructive pulmonary disease) Alcohol use disorder Tobacco use disorder Acute CHF Chronic obstructive pulmonary disease with (acute) exacerbation Alcohol use Pulmonary nodules Supplemental oxygen dependent Atrial fibrillation with RVR Hypothyroid Social History Social History Household Members: Family Housing: House Do you presently have visiting nurse or other home services: Yes Alcohol intake: current Comment: refusing HFR alarms Patient Tobacco Use Status: Former Tobacco user Tobacco use type: Cigarette Cigarette Packs Per Day: 0.5 Cigarettes Per Day: 10.0 Years Smoked: started at age 12, 2-3 PPD, quit 10/16/2024 Advance Directives: No Advance Directives Information Provided: Yes service: No Physical Exam ED Vital Signs: Vital Signs - 24 hr 09/15/25 08:30 09/15/25 09:48 09/15/25 12:56 Temperature 97 F 97.9 F Pulse Rate 92 86 100 Respiratory Rate 24 H 19 18 Blood Pressure 123/60 116/67 Pulse Oximetry 95 95 Oxygen Delivery Method Nasal Cannula Nasal Cannula Oxygen Flow Rate 2 09/15/25 13:39 Temperature 97.9 F Pulse Rate 100 Respiratory Rate 18 Blood Pressure 116/67 Pulse Oximetry 95 Oxygen Delivery Method Nasal Cannula Oxygen Flow Rate 2 BMI result Body Mass Index 28.1 Const General: cooperative, no acute distress, alert and awake Nutritional Appearance: well nourished Orientation/consciousness: patient oriented x3 HENMT Head: Yes normal to inspection and Yes atraumatic Ears: hearing grossly normal bilaterally and external ears normal General nose exam: Normal external nose present, no nasal discharge noted and no epistaxis Face and sinus: Yes normal facial exam, No abrasion and No laceration Mouth: Normal oral and palatal mucosa present, no drooling and no muffled voice Eyes General: appearance normal, both eyes and all related structures Periorbital: periorbital findings normal Eyelids: Yes eyelids normal Conjunctivae: conjunctivae normal Pupils: Equal, round and reactive pupils present EOM: EOMs intact bilaterally Neck Neck: Yes normal visual inspection and Yes full ROM Resp Other: wearing his chronic nasal cannula oxygen - slightly labored breathing Effort & Inspection: able to speak in complete sentences Neuro General: patient oriented x3, moves all extremities and CN's II-XI intact bilaterally Cranial nerves: Yes Equal, round and reactive pupils present Cognition (Neuro): normal cognition Extrem Other: General: Yes full ROM and Yes capillary refill normal Psych Appearance: grossly normal Mental Status: mental status grossly normal Affect: normal affect Attitude: cooperative Thought process: Normal thought process present Thought content: Normal thought content present Insight: Good insight present (Psych) Medications Administered Discontinued Medications Generic Name Dose Route Start Last Admin Trade Name Freq PRN Reason Stop Dose Admin Albuterol Sulfate 2.5 mg/ 5 mg 09/15/25 09:39 09/15/25 09:47 Albuterol Sulfate 2.5 mg INHALE 09/15/25 09:40 5 mg ONCE ONE Administration Azithromycin 500 mg/ Sodium 250 mls @ 125 mls/hr 09/15/25 09:27 09/15/25 13:10 Chloride IV 09/15/25 11:26 Infused ONCE ONE Infusion Iohexol 100 ml 09/15/25 10:16 09/15/25 10:18 Iohexol 350 Mg/Ml 100 Ml Infus..Btl IV 09/15/25 10:17 65 ml ONCE ONE Administration Methylprednisolone Sodium Succinate 60 mg 09/15/25 09:27 09/15/25 10:22 Methylprednisolone Sod Succ 125 Mg/2 Ml Vial IVPUSH 09/15/25 09:28 60 mg ONCE ONE Administration Medical Decision Making Medical Decision Making [facility] Narrative: Patient is a 70 year old assigned male at with a history of atrial fib on xarelto, CHF, COPD on oxygen via nasal cannula at base line, alcohol abuse / use, and hypothyroidism presenting to the emergency department today with increased shortness of breath and significant left hand swelling. Patient's physical exam was as noted in the physical exam portion of this note. Patient's blood work was unremarkable. Patient's EKG showed no obvious evidence of arrhythmia, ischemia, or infarct. Patient's CT PE showed no acute process but did show evidence of continued bronchitis. Patient's left upper extremity US showed no evidence of DVT. Patient received Azithromycin and Prednisone which, upon re-evaluation, he stated it helped his breathing symptoms some. I spoke with the hospitalist team who stated the patient did not require admission at this time given he is not hypoxic, the patient declines any shortness of breath / difficulty breathing at this time, and has no obvious emergent process causing the left upper extremity swelling. Patient's clinical presentation is most consistent with left upper extremity edema with unknown origin and a COPD exacerbation. I explained my physical exam findings as well as all test results to the patient. I answered all questions asked by the patient. Patient informed me he has an appointment with his finance teacher tomorrow (09/16/2025) and he would prefer not to be admitted to the hospital. Patient prescribed prednisone and azithromycin for COPD exacerbation. I stressed the importance of the patient taking his medication as directed (either prescribed or as the over the counter packaging recommends). I stressed the importance of the patient following up with his primary care provider and his finance teacher. I stressed the importance of the patient returning to the emergency department immediately if his symptoms were to worsen or if he were to develop any dizziness, shortness of breath, difficulty breathing, chest pain, blurry vision, loss of vision, nausea, vomiting, abdominal pain, fever, chills, back pain, or any other complaints. Patient verbalized agreement and understanding with this treatment plan and discharge. Differential Diagnosis Differential Diagnoses: The differential diagnosis associated with the presentation includes COPD exacerbation PE DVT Lymphadenopathy CHF exacerbation Admission/Observation Consideration of admission/observation: Escalation of care including admission/observation considered Attempted to admit the patient as noted in the MDM Rationale portion of this note. Consult Healthcare Provider Management of the patient was discussed with: Hospitalist (declined admission as noted in the MDM Rationale portion of this note. ) Lab Data [facility] Lab Attestation statement: I reviewed the patient's lab results. My interpretation of these results are in the MDM Rationale portion of this note. 09/15/25 08:52 09/15/25 08:52 Labs: Lab Results 09/15/25 09/15/25 09/15/25 Range/Units 08:52 08:53 08:57 WBC 8.8 (4.8-10.8) X10*3/uL RBC 4.86 (4.60-5.80) X10*6/uL Hgb 14.3 (14.0-18.0) g/dl Hct 44.3 (42.0-52.0) % MCV 91.2 (80.0-98.0) fL MCH 29.4 (27.0-33.0) pg MCHC 32.3 (31.0-36.0) g/dl RDW 12.9 (11.0-16.0) % Plt Count 230 (160-400) X10*3/uL MPV 11.2 (9.4-12.4) fL Immature Gran % (Auto) 0.6 H (0.0-0.4) % Neut % (Auto) 72.3 (45-73) % Lymph % (Auto) 17.3 L (20-40) % [place] % (Auto) 6.3 (2-11) % Eos % (Auto) 3.2 (0-4) % Baso % (Auto) 0.3 (0-2) % Lymph # (Auto) 1.5 (1.2-4.9) X10*3/uL [place] # (Auto) 0.6 (0.1-1.2) X10*3/uL Eos # (Auto) 0.3 (0.0-0.4) X10*3/uL Baso # (Auto) 0.0 (0.0-0.2) X10*3/uL Abs Immat Gran (auto) 0.05 H (0.00-0.03) X10*3/uL Absolute Neuts (auto) 6.4 (2.0-8.3) x10*3/uL Absolute Nucleated RBC 0.000 (0.0-0.012) X10*3/uL Nucleated RBC % (auto) 0.0 (0.0-0.2) /100WBC Hold Blue Top SEE NOTE VBG pH 7.45 H (7.32-7.43) VBG pCO2 61 mmHg VBG pO2 44 mmHg VBG HCO3 43 H (22-26) mmol/L VBG O2 Saturation 71.0 % VBG Base Excess 16.1 mmol/L Sodium 141 (135-145) mmol/L Potassium 3.3 D (3.3-5.1) mmol/L Chloride 93 L (96-108) mmol/L Carbon Dioxide 38 H (22-29) mmol/L Anion Gap 13 (12-20) BUN 5 L (9-16) mg/dL Creatinine 0.69 (0.5-1.4) mg/dL Estim Creat Clear Calc 105.2 Estimated GFR > 60 Random Glucose 99 (60-115) mg/dL Calcium 10.0 D (8.4-10.2) mg/dL Total Bilirubin 1.2 H (0.0-1.0) mg/dL AST 26 (5-37) U/L ALT 7 (0-40) U/L Alkaline Phosphatase 132 H (39-117) U/L NT-Pro-B Natriuret Pep 431.8 H (<300) pg/mL Total Protein 7.2 (6.5-8.0) g/dL Albumin 4.2 (3.5-5.0) g/dL Influenza Type A (PCR) NEGATIVE (Negative) Influenza Type B (PCR) NEGATIVE (Negative) RSV RNA Qual (PCR) NEGATIVE (Negative) SARS-CoV-2 RNA (RT-PCR) NEGATIVE (Negative) Independent Interpretation I performed an independent interpretation of an: EKG, Ultrasound and CT Scan Interpretation: My interpretation is in agreement with the radiologist's impression of these imaging studies as written below. Reason for Exam: significant swelling to the hand EXAMINATION: US TRIPLEX UPPER EXTREMITY, LEFT CLINICAL INFORMATION: Significant swelling to the hand COMPARISON: None available. TECHNIQUE: Color-flow triplex imaging with spectral analysis and compression Doppler was performed on the left upper extremity. FINDINGS: The left internal jugular, subclavian, and axillary veins are patent and free of thrombus. The imaged segment of the left brachiocephalic vein is patent. Spectral doppler waveforms are normal. The brachial, basilic, cephalic, radial, and ulnar veins are patent and compressible. US/US venous duplex UE LT IMPRESSION: No evidence of deep venous thrombosis involving the left upper extremity. Electronically signed by: Glenn Weaver MD 09/15/2025 10:52 AM [facility] Dictated By: Glenn Weaver MD Signed By: Electronically signed by Glenn Weaver MD 09/15/25 1052 Report Number: [id number]: Total DLP = 385.00 mGy-cm Reason for Exam: SOB, concern for PE EXAMINATION: CT ANGIOGRAM CHEST CLINICAL INFORMATION: Shortness of breath, concern for PE. 70-year-old male. COMPARISON: [facility] 05/08/2025. LDS CT 03/08/2025. TECHNIQUE: Multiple axial images were obtained through the chest after the administration of 65 mL of Omnipaque 350 intravenous contrast. Extensive vascular post-processing including two-dimensional and three- dimensional reformatted images were created and reviewed on an independent workstation. This CT examination was performed using dose optimization techniques as appropriate, variously including the following: *Automated exposure control *Adjustment of mA and/or kV according to patient size (this includes techniques or standardized protocols for targeted exams where dose is matched to indication/reason for exam; i.e. extremities or head) *Use of iterative reconstruction technique FINDINGS: VASCULAR: Study quality is diagnostic. There is no filling defects in the pulmonary arteries to suggest PE. No embolus is identified. The main pulmonary artery is normal in caliber. The ascending aorta is mildly aneurysmal measuring 4.3 cm in maximal diameter. The aortic arch and remainder of the aorta are normal in caliber. There is mild atheromatous calcification present. No acute aortic syndrome. Normal branching pattern of the great vessels, which are patent. Heart size is top normal. No pericardial effusion. There are moderate to heavy coronary calcifications. LUNGS: There is mild to moderate centrilobular emphysema. Minimal subsegmental atelectasis in the right middle lobe. Lungs otherwise grossly clear without focal consolidation or abnormal opacities. Mild to moderate thickening of the small airways is noted, consistent with chronic bronchitis. The central airways are patent. No suspicious pulmonary nodules are evident. There are a few scattered micronodules measuring up to 4 mm as described on the prior exams. These are unchanged from prior exams. No new nodule. No pleural effusion or pneumothorax. PLEURA: There is no pleural effusion. No pleural mass or thickening. MEDIASTINUM: The partially imaged thyroid is normal. There is no adenopathy or mass within the mediastinum. The esophagus is unremarkable. The central airways are normal. AXILLA/CHEST WALL: There is no lymphadenopathy or mass. There is moderate bilateral male gynecomastia left greater than right. UPPER ABDOMEN: There is diffuse fatty infiltration of the liver. There is no suspicious liver lesion. A subtle density in the dependent gallbladder is likely a small gallstone. Normal-appearing kidneys and adrenal glands. No pancreatic abnormality. Imaged bowel structures grossly normal. OSSEOUS STRUCTURES: No suspicious lytic or blastic bone lesions. There are mild to moderate degenerative changes throughout the spine. Arthritic spurring of the sternal manubrial joint. CT/CT angio chest PE protocol IMPRESSION: 1. There is no evidence of pulmonary embolism. There is no acute aortic syndrome. There is mild aneurysmal dilatation of the ascending aorta at 4.3 cm. 2. Mild to moderate centrilobular emphysema. No active pulmonary disease or pneumonia evident. 3. Diffuse thickening of the small airways present, in keeping with chronic bronchitis. 4. There are a few scattered stable micronodules measuring up to 4 mm. 5. Diffuse fatty infiltration of the liver. 5. There are additional ancillary findings as discussed in the body of the report. Electronically signed by: Marty Pelletier MD 09/15/2025 10:58 AM EST Dictated By: Marty Pelletier MD Signed By: Electronically signed by Marty Pelletier MD 09/15/25 1058 I independently interpreted this EKG and am in agreement with the below findings: Vent. Rate: 92 BPM Atrial Rate: 92 BPM P-R Int: 146 ms QRS Dur: 74 ms QT Int: 366 ms P-R-T Axes: 69 78 36 degrees QTcB Int: 452 ms Sinus rhythm with Premature atrial complexes When compared with ECG of 09-Jun-2025 12:59, No significant change was found DD/ [id number] Radiology Impression Discussion of test interpretation with radiology: I have reviewed the radiologist's reading. Prescription Management I considered prescription management with: Antibiotic (patient prescribed an antibiotic as noted in the MDM Rationale portion of this note. ) Critical Care Time Critical Care Time Critical Care Time: Yes Total Critical Care Time: 48 Attestation: I spent 48 minutes of Critical Care Time with this patient. This does not include time spent on separately reported billable procedures. Discharge Plan Discharge Clinical Impression: Left upper extremity swelling, Acute exacerbation of chronic obstructive pulmonary disease Patient Disposition: Home, Self-Care Instructions: COPD (Chronic Obstructive Pulmonary Disease) (DC), Edema (ED) Additional Instructions: Your work up today was reassuring there is no EMERGENT cause for your symptoms. Your left upper extremity ultrasound showed no evidence of DVT / blood clot. Your chest imaging showed no evidence of blood clot or pneumonia. Take your antibiotic as prescribed and follow up with your primary care provider and finance teacher. IF you are prescribed home medications and/or you are taking over the counter medications at home - it is very important you continue to do so as prescribed / directed unless told otherwise by a healthcare provider. Follow up with your primary care provider. Do your best to stay well hydrated and rest. Return to the emergency department immediately if your symptoms worsen or if you develop any numbness, tingling, dizziness, shortness of breath, difficulty breathing, chest pain, blurry vision, loss of vision, nausea, vomiting, abdominal pain, fever, chills, back pain, or any other complaints. Please see the information below about our Patient Portal. If you are not yet enrolled in the [facility] Patient Portal, you will receive an enrollment email invitation following your visit to any [facility] care setting. You may also self-enroll in the Patient Portal by visiting our website: [email or web address] The following information is required to access the Patient Portal: - Your [facility] Medical Record Number - Your personal home email address (must match what is in your electronic medical record, Registration staff can assist with this) - Name - Date of Capabilities of the Patient Portal: - Message some providers - View upcoming appointments - Access your health summary, medical history, and visit history - View current conditions and allergies - View procedure and lab results - View your medications, including guidelines, side effects, and precautions - Complete pre-appointment questionnaires requested by your provider - Ready summary reports of your office visits and procedures To access the Patient Portal Mobile [employer], follow these directions: - Search [email or web address] in the [employer] Store or Photobucket Store - Download the [employer]vin - Search for [facility] - Enter your login/password Prescriptions: New azithromycin 250 mg tablet See Rx Instructions .ROUTE .COMPLEX Qty: 6 0RF Rx Instructions: For 250 mg dose pack: take 500 mg today (day 1), then 250 mg for 4 days (days 2-5) prednisone 20 mg tablet 40 mg PO DAILY 5 Days Qty: 10 0RF No Action theophylline 400 mg tablet extended release 24 hr 400 mg PO DAILY Qty: 30 6RF albuterol sulfate 2.5 mg /3 mL (0.083 %) Solution For Nebulization 2.5 mg inhalation Q6H PRN (Reason: breathing) levothyroxine 88 mcg Tablet 88 mcg PO DAILY@0600 albuterol sulfate 90 mcg/actuation Hfa Aerosol Inhaler 2 puff INHALATION Q4H PRN (Reason: breathing) Xarelto 20 mg tablet 20 mg PO DAILY@1700 metoprolol tartrate 50 mg Tablet 50 mg PO BID Qty: 60 0RF Protocol: Hold for SBP/HR < HOLD for SBP < : 90 HOLD for HR < : 60 prednisone 10 mg tablet See Taper PO DIRECTED Qty: 12 0RF Taper: Prednisone 30 mg daily for 2 Days and 0 Hour 20 mg daily for 2 Days and 0 Hour 1 mg daily for 2 Days and 0 Hour Rx Instructions: see taper instructions atorvastatin 40 mg tablet 20 mg PO DAILY cholecalciferol (vitamin D3) 25 mcg (1,000 unit) tablet 25 mcg PO DAILY fluticasone propion-salmeterol 250-50 mcg/dose blister with device 1 inh inhalation BID tiotropium bromide 2.5 mcg/actuation mist 2 puff inhalation DAILY furosemide 40 mg tablet 40 mg PO DAILY Qty: 30 6RF Referrals: Artie Lentz MD [Primary Care Provider, Endocrinology] Interventions: ED Discharge Assessment Last Done: 09/15/25 13:39 Discharge Date/Time: 09/15/25 13:39 Print Language: Latvian
[2025-09-15 08:59] LABS: MANUAL DIFF FLAG NO
[2025-09-15 09:00] LABS: Hematocrit 44.3 % (42.0-52.0); Hemoglobin 14.3 g/dl (14.0-18.0); Imm Gran Abs Auto 0.05 X10*3/uL (0.00-0.03); Imm Gran Pct Auto 0.6 % (0.0-0.4); Lymphocytes Absolute Auto 1.5 X10*3/uL (1.2-4.9); Mean Corpuscular HGB Conc 32.3 g/dl (31.0-36.0); Mean Corpuscular Hemoglobin 29.4 pg (27.0-33.0); Mean Corpuscular Volume 91.2 fL (80.0-98.0); NRBC Abs Auto 0.000 X10*3/uL (0.0-0.012); NRBC Pct Auto 0.0 /100WBC (0.0-0.2); Platelet Count 230 X10*3/uL (160-400); Red Blood Count 4.86 X10*6/uL (4.60-5.80); Venous Blood Gas Refer to POC result; White Blood Count 8.8 X10*3/uL (4.8-10.8)
[2025-09-15 09:01] LABS: VBG HCO3 43 mmol/L (22-26); VBG O2 % Saturation 71.0 %
--- NOTE | 2025-09-15 09:11 | PC.NURSE ---
coming from home for worsening shortness of breath. has been ongoing for months but worsening more as of late. hx copd, still smokes. has been wearing oxygen round the clock at 2L. swollen left hand, painful to the touch. has been ongoing for four days however is able to somewhat extend his fingers today. cool to the touch, no discoloration noted. IV established, labs obtained and sent.
[2025-09-15 09:20] LABS: Alanine Aminotransferase 7 U/L (0-40); Albumin Level 4.2 g/dL (3.5-5.0); Alkaline Phosphatase 132 U/L (39-117); Anion Gap 13 (12-20); Aspartate Amino Transferase 26 U/L (5-37); Blood Urea Nitrogen 5 mg/dL (9-16); Calcium 10.0 mg/dL (8.4-10.2); Carbon Dioxide 38 mmol/L (22-29); Chloride 93 mmol/L (96-108); Creatinine Clr Calc Pharmacy 105.2; Estimated Glomerular Filt Rate > 60; Potassium 3.3 mmol/L (3.3-5.1); Sodium 141 mmol/L (135-145); Total Protein 7.2 g/dL (6.5-8.0)
[2025-09-15 09:26] LABS: NT Pro B Type Natriuretic Pept 431.8 pg/mL (<300)
[2025-09-15] MEDS: Albuterol Sulfate 2.5 MG, Albuterol Sulfate (0.083%) 2.5 MG 5 MG INHALE (09:47)
[2025-09-15 09:48] VITALS: PULSE 86; RESP 19; O2SAT 97
[2025-09-15 09:54] LABS: Resp Syncy Virus RNA Qual PCR NEGATIVE (Negative); SARS COV2 PCR INHOUSE NEGATIVE (Negative)
[2025-09-15] MEDS: iohexoL 350 MG/ML 100 ML INFUS..BTL IV (10:18)
[2025-09-15 12:56] VITALS: BP 116/67; PULSE 100; RESP 18; TEMP 36.6; O2SAT 95
[2025-09-15 13:39] VITALS: BP 116/67; PULSE 100; RESP 18; TEMP 36.6; O2SAT 95
== END 2025-09-15 13:39 | disposition home or self-care (01) ==
PROVIDERS: Emergency Provider Emergency Medicine; PCP Internal Medicine Endocrinology, Diabetes & Metabolism
DX: J44.9 Chronic obstructive pulmonary disease, unspecified (principal); R60.0 Localized edema; R06.02 Shortness of breath; I48.91 Unspecified atrial fibrillation; Z79.01 Long term (current) use of anticoagulants; Z79.899 Other long term (current) drug therapy; Z03.818 Encounter for observation for suspected exposure to other biological agents ruled out
CPT/HCPCS: 71275; 80053; 82803; 83880; 85025; 87637; 93005; 93971; 94640; 96365; 96366; 96375; 99285; J0456; J2919; Q9967

== ENCOUNTER → 2025-09-15 09:13 | Outpatient (BNV) | payer MEDICARE, SELFPAY | PROVIDERS: PCP Internal Medicine Endocrinology, Diabetes & Metabolism; Visit Provider Radiology Diagnostic Ultrasound | DX: R22.32 Localized swelling, mass and lump, left upper limb (principal) | CPT/HCPCS: 71275; 93971 ==

== ENCOUNTER 2025-09-16 09:14 | Outpatient (AMB) | payer OTHER, SELFPAY ==
[2025-09-16 09:16] VITALS: BP 128/67; PULSE 104; O2SAT 94; BMI 28.9
--- NOTE | 2025-09-16 09:16 | A.OFFVIS_ITS ---
Vital Signs 09/16/25 09:16 Height 5 ft 9 in Weight 196 lb BMI 28.9 BP 128/67 Blood Pressure Location Rt brachial Position Sitting Pulse 104 H Pulse Source Pulse Oximeter Pulse Oximetry (%) 94 Oxygen Delivery Method Nasal Cannula Oxygen Flow Rate 2 Intake Visit Reasons: COPD Allergies hydrochlorothiazide Adverse Reaction (Severe, Verified 09/16/25 09:22) Rash HPI HPI COPD: Details: 70-year-old gentleman with underlying COPD, AFib with prior episodes of RVR, hypothyroidism, alcohol dependence with recent admission for dyspnea and hypoxia here for follow-up. Patient continues on Spiriva, Advair, albuterol MDI/nebs, and theophylline with reasonable baseline control of his COPD. After the last office visit he was evaluated at [place] and was started on daytime supplemental oxygen. He had also been using supplemental oxygen at night at 2 L continuous flow, but states that when he wakes up he sometimes notices his O2 saturation to be 77%. [facility] Medical History (Updated 09/16/25 @ 09:37 by Salvador Ramos MD) Supplemental oxygen dependent COPD (chronic obstructive pulmonary disease) Aortic root dilation Alcohol use disorder Tobacco use disorder Acute CHF Chronic obstructive pulmonary disease with (acute) exacerbation Alcohol use Pulmonary nodules Atrial fibrillation with RVR Hypothyroid Social History Household Members: Family Housing: House Do you presently have visiting nurse or other home services: Yes Alcohol intake: current Comment: refusing HFR alarms Patient Tobacco Use Status: Former Tobacco user Tobacco use type: Cigarette Cigarette Packs Per Day: 0.5 Cigarettes Per Day: 10.0 Years Smoked: started at age 12, 2-3 PPD, quit 10/16/2024 service: No Review of Systems Const Denies daytime sleepiness, Denies excessive sweating, Denies fatigue, Denies fever(s), Denies lethargy, Denies malaise, Denies night sweats, Denies snoring and Denies weight loss Eyes Denies blurry vision and Denies itchy eyes ENT Denies nasal congestion, Denies post nasal drip, Denies sinus pain, Denies sinus pressure and Denies other ( Thrush) Card Denies chest pain, Denies pedal edema, Denies dyspnea, Denies orthopnea and Denies paroxysmal nocturnal dyspnea Resp Denies cough, Denies hemoptysis, Denies excessive phlegm production, Denies dyspnea, Denies snoring and Denies wheezing GI Denies abdominal pain and Denies heartburn Musc Denies myalgias, Denies arthralgias and Denies joint swelling Skin/Breast Denies rash Neuro Denies memory loss and Denies seizure-like activity Psych Denies abnormal sleep pattern, Denies anxiety and Denies memory loss Endo Denies excessive sweating, Denies fatigue and Denies heat intolerance Saw/Lymph Denies easy bruising Aller/Immun Denies itchy eyes, Denies seasonal rhinorrhea and Denies wheezing Physical Exam Vital Signs: Last Vital Signs Pulse 104 H 09/16/25 09:16 BP 128/67 09/16/25 09:16 Pulse Ox 94 09/16/25 09:16 Oxygen Delivery Method Nasal Cannula 09/16/25 09:16 Oxygen Flow Rate 2 09/16/25 09:16 BMI result Body Mass Index 28.9 Const General: no acute distress and alert Nutritional Appearance: not obese Orientation/consciousness: Other orientation findings ( oriented) HEENT Head: Yes atraumatic Eyes General: appearance normal, both eyes and all related structures Sclerae: sclerae normal EOM: EOMs intact bilaterally Neck Neck: Yes supple Lymphatic: no lymphadenopathy noted Resp Effort & Inspection: normal respiratory effort and no use of accessory muscles Auscultation: clear to auscultation bilaterally Cardio Rate: regular rate Rhythm: regular rhythm Heart sounds: no gallops, no murmurs and no rubs Skin General skin exam: other ( warm) Extrem General: No clubbing, No cyanosis and Yes edema (2+ bilateral) Assessment & Plan Assessment & Plan (1) COPD (chronic obstructive pulmonary disease): Code(s): J44.9 - Chronic obstructive pulmonary disease, unspecified Category: Medical Qualifiers: COPD type: unspecified COPD Qualified Code(s): J44.9 - Chronic obstructive pulmonary disease, unspecified Plan: Reasonable baseline control on current regimen of Advair, Spiriva, albuterol MDI/nebs. Continue current regimen. (2) Supplemental oxygen dependent: Code(s): Z99.81 - Dependence on supplemental oxygen Category: Medical Plan: Now on supplemental oxygen 2 L at rest and 3 L with exertion via [facility]. (3) Personal history of nicotine dependence: Code(s): Z87.891 - Personal history of nicotine dependence Category: Medical Plan: Results of CT angio chest from September of 2025 reviewed, no worrisome nodules. Continue with yearly screening, next in September of 2026. (4) Nocturnal hypoxemia: Code(s): G47.34 - Idiopathic sleep related nonobstructive alveolar hypoventilation Category: Medical Plan: Unclear if insufficient nocturnal oxygen. Nocturnal oximetry on current 2 L of supplemental oxygen ordered. Orders: Orders Overnight Pulse Oximetry Today G47.34 - Idiopathic sleep related nonobstructive alveolar hypoventilation Coding Level of Care Code Est Pt Level 4 (97011) Add On Problem Visit Only Diagnoses Chronic obstructive pulmonary disease, unspecified COPD type J44.9 COPD type: unspecified COPD Supplemental oxygen dependent Z99.81 Personal history of nicotine dependence Z87.891 Nocturnal hypoxemia G47.34
== END 2025-09-16 09:32 | disposition home or self-care (01) ==
LOC: HO.HPS 09:14
PROVIDERS: PCP Nurse Practitioner Family; Visit Provider Internal Medicine Pulmonary Disease
DX: J44.9 Chronic obstructive pulmonary disease, unspecified (principal); Z99.81 Dependence on supplemental oxygen; Z87.891 Personal history of nicotine dependence; G47.34 Idiopathic sleep related nonobstructive alveolar hypoventilation
CPT/HCPCS: 99214; G2211

== ENCOUNTER → 2025-09-16 09:14 | Outpatient (BNVA) | payer OTHER, SELFPAY | PROVIDERS: PCP Nurse Practitioner Family; Visit Provider Internal Medicine Pulmonary Disease | DX: J44.1 Chronic obstructive pulmonary disease with (acute) exacerbation (principal); G47.34 Idiopathic sleep related nonobstructive alveolar hypoventilation; I48.20 Chronic atrial fibrillation, unspecified; Z87.891 Personal history of nicotine dependence; Z99.81 Dependence on supplemental oxygen | CPT/HCPCS: 99212 ==